=== PATIENT | male | born 1940 | race Caucasian/White ===

== ENCOUNTER → 2017-02-15 | Outpatient (CLI) | payer BC ==
[~2017-02-15] MED LIST: ASPI-461 PO; CALC-416 PO; CEPH500C PO; CYM/30 PO; DXY100 PO; FLV1 PO; GABA1CAP PO; LYR/50 PO; METF-384 PO; MTH25 PO; MULT-506 PO; OMEG10007 PO; PRED10TA PO; SIMV10TA2 PO; SOLI5TAB2 PO; ULT50 PO; VALS320T2 PO
[2017-02-15 13:01] LABS: THYROID STIMULATING HORMONE 2.51 uIu/ml (0.300-4.500)
[2017-02-15 13:19] LABS: URINE PROTIEN/CREAT RATIO 0.1 (0-0.2)
[2017-02-15 15:37] LABS: ESTIMATED AVERAGE GLUCOSE 148 mg/dl; HA1C FLAG Normal (Normal)
--- NOTE | 2017-02-19 13:24 | CODING QUERY MEDICAL NECESSITY ---
CQSUPPORTING DIAGNOSIS NEEDED A supporting diagnosis is required for the test/procedure performed on this patient in order for us to be reimbursed by the patient's insurance. Please provide a supporting diagnosis for the following test/procedure listed below next to the test name along with your signature. *If there is no additional diagnosis for this patient that would support the following test/procedure please document that below next to the test/procedure. Test(s)/Procedure(s) that require a supporting diagnosis: DOS 02/15/17 VITAMIN B12 Provider Signature: Date: Thank you Yamilet Duran [employer] Once completed, please kindly fax back to [phone] For questions please call [phone]
== END | disposition home or self-care (01) ==
LOC: C.LABPBG 09:14
PROVIDERS: ATTEND Internal Medicine Geriatric Medicine
DX: E11.9 Type 2 diabetes mellitus without complications (principal); L40.50 Arthropathic psoriasis, unspecified; I10 Essential (primary) hypertension; E78.5 Hyperlipidemia, unspecified; R94.31 Abnormal electrocardiogram [ECG] [EKG]; D64.9 Anemia, unspecified

== ENCOUNTER → 2017-04-22 | Outpatient (CLI) | payer BC | END | disposition home or self-care (01) | LOC: C.LABPBG 12:30 | PROVIDERS: ATTEND Internal Medicine Geriatric Medicine | DX: I10 Essential (primary) hypertension (principal); D64.9 Anemia, unspecified; R35.0 Frequency of micturition; L40.50 Arthropathic psoriasis, unspecified; Z79.899 Other long term (current) drug therapy; Z51.81 Encounter for therapeutic drug level monitoring ==

== ENCOUNTER → 2017-05-20 | Outpatient (CLI) | payer BC ==
[~2017-05-20] MED LIST changes: -CEPH500C PO; -DXY100 PO; -GABA1CAP PO
--- NOTE | 2017-05-20 12:05 | DIAGNOSTIC IMAGING REPORT ---
RIGHT RIBS UNILATERAL MIN 2 VIEWS, CHEST 2 VIEWS ROUTINE HISTORY: 76 years Male ANEMIA,HEPATIC STEATOSIS, RIB PAIN RT SIDE, RT SIDE ABD PAIN Right COMPARISON: Chest radiograph 10/12/2016 TECHNIQUE: 5 views of the right ribs with single frontal chest radiograph FINDINGS: Chronic silhouette is again enlarged. There is atherosclerosis of the aorta. No pneumothorax. There is blunting of the right costophrenic angle suggesting trace pleural effusion. Hazy right basilar opacity suggests associated atelectasis. Left lung is clear. No overt pulmonary edema. No definite acute displaced rib fracture is identified. There is minimal cortical buckling noted involving lateral aspect of the right eighth rib. IMPRESSION: 1. Trace right pleural effusion with right basilar atelectasis. 2. No acute displaced rib fracture is identified. There is a probable subtle acute nondisplaced fracture of the lateral right eighth rib. Correlate with point tenderness. The above report was generated using voice recognition software. It may contain grammatical, syntax or spelling errors. Electronically signed by: Paul Bonilla M.D. 05/20/2017 12:04 PM Dictated Date/Time: 05/20/2017 11:58 AM
[2017-05-20 13:28] LABS: BASO % 0.2 %; BASO ABS # 0.02 K/uL (0-0.2); COMPLETE YES; EOS % 1.8 %; HEMATOCRIT 39.1 % (42-52); IG% 0.4 %; LYMPH % 13.6 %; LYMPH ABS # 1.31 K/uL (1.2-3.4); MEAN CELL VOLUME 88.9 fL (80-100); MEAN CORPUSCULAR HEMOGLOBIN 28.6 pg (25-34); MEAN CORPUSCULAR HGB CONC 32.2 g/dl (32-36); MEAN PLATELET VOLUME 11.1 fL (7.4-10.4); MONO % 10.8 %; NEUT % 73.2 %; PLATELET COUNT 262 K/uL (130-400); WHITE BLOOD COUNT 9.63 K/uL (4.8-10.8)
[2017-05-20 13:47] LABS: ALT/SGPT 26 U/L (12-78); BLOOD UREA NITROGEN 15 mg/dl (7-18); BUN/CREATININE RATIO 19.2 (10-20); CALCIUM 9.8 mg/dl (8.5-10.1); CARBON DIOXIDE 33 mmol/L (21-32); CHLORIDE 101 mmol/L (98-107); CREATININE 0.77 mg/dl (0.60-1.40); GLUCOSE 97 mg/dl (70-99); POTASSIUM 3.8 mmol/L (3.5-5.1); SODIUM 138 mmol/L (136-145)
[2017-05-20 13:50] LABS: ALKALINE PHOSPHATASE 83 U/L (45-117); AST/SGOT 20 U/L (15-37)
== END | disposition home or self-care (01) ==
LOC: C.LABBC 10:09
PROVIDERS: ATTEND Internal Medicine Geriatric Medicine
DX: D64.9 Anemia, unspecified (principal); K76.0 Fatty (change of) liver, not elsewhere classified; R07.81 Pleurodynia; R10.9 Unspecified abdominal pain

== ENCOUNTER → 2017-05-24 | Outpatient (CLI) | payer BC ==
--- NOTE | 2017-05-24 12:09 | DIAGNOSTIC IMAGING REPORT ---
LEFT FOOT MIN 3 VIEWS ROUTINE HISTORY: 76 years-old Male acute left foot pain with concern for osteomyelitis. Pain is most pronounced in the second and third toes. COMPARISON: None available TECHNIQUE: 3 views of the left foot FINDINGS: There is an acute to subacute appearing nondisplaced fracture involving the proximal metaphyseal portion of the fifth proximal phalanx. The bones are moderately demineralized. Advanced mid foot and moderate hindfoot degenerative changes are present. There is bony fusion of the first MTP joint with moderate diffuse interphalangeal degenerative changes noted. Lucent changes with cortical indistinctness/irregularity seen involving the fifth metatarsal head, notably on the oblique projection with plantar forefoot soft tissue swelling noted. There is prominent spurring about the calcaneus with large degree of soft tissue swelling within the region of the distal Achilles tendon. There is no opaque foreign body. IMPRESSION: 1. Lucent changes with cortical irregularity noted involving the medial aspect of the fifth metatarsal head with associated soft tissue swelling. This may reflect developing osteomyelitis within the appropriate clinical setting. 2. Acute to subacute nondisplaced fracture involves the fifth proximal phalanx. 3. Bony fusion of the first MTP joint. The above report was generated using voice recognition software. It may contain grammatical, syntax or spelling errors. Electronically signed by: Paul Bonilla M.D. 05/24/2017 12:08 PM Dictated Date/Time: 05/24/2017 12:05 PM
== END | disposition home or self-care (01) ==
LOC: C.RAD 10:33
PROVIDERS: ATTEND Emergency Medicine
DX: E11.621 Type 2 diabetes mellitus with foot ulcer (principal); L97.509 Non-pressure chronic ulcer of other part of unspecified foot with unspecified severity; S92.515A Nondisplaced fracture of proximal phalanx of left lesser toe(s), initial encounter for closed fracture; X58.XXXA Exposure to other specified factors, initial encounter; Z98.1 Arthrodesis status

== ENCOUNTER → 2017-05-24 | Outpatient (CLI) | payer BC ==
--- NOTE | 2017-05-24 10:13 | DIAGNOSTIC IMAGING REPORT ---
ABDOMEN LIMITED (US) HISTORY: 76 years-old Male D64.9 RmbzipW87.0 Hepatic twtfougigP27.9 Right sided abdominal pain COMPARISON: Ultrasound of the abdomen 11/02/2013. TECHNIQUE: Multiple real-time sonographic images of the abdominal right upper quadrant were obtained assessing grayscale appearance and color flow FINDINGS: The imaged pancreas is unremarkable without pancreatic ductal dilatation. The distal body and tail are obscured by bowel gas. There is diffusely increased echogenicity with poor through transmission of the liver consistent with fatty infiltration. No focal hepatic masses are seen. Common bile duct is normal, 0.3 cm. Liver measures up to 17.3 cm. Mild layering gallbladder sludge and cholelithiasis noted without gallbladder wall thickening or pericholecystic fluid. No reported right upper quadrant abdominal tenderness. Imaged right kidney is within normal limits without hydronephrosis. IMPRESSION: 1. Cholelithiasis and gallbladder sludge without sonographic evidence of acute cholecystitis. 2. Fatty infiltration of the liver. 3. No biliary ductal dilatation. The above report was generated using voice recognition software. It may contain grammatical, syntax or spelling errors. Electronically signed by: Paul Bonilla M.D. 05/24/2017 10:11 AM Dictated Date/Time: 05/24/2017 10:09 AM
== END | disposition home or self-care (01) ==
LOC: C.ULTRBC 09:11
PROVIDERS: ATTEND Internal Medicine Geriatric Medicine
DX: K80.20 Calculus of gallbladder without cholecystitis without obstruction (principal); D64.9 Anemia, unspecified; K76.0 Fatty (change of) liver, not elsewhere classified; R07.81 Pleurodynia

== ENCOUNTER → 2017-06-03 | Outpatient (CLI) | payer BC ==
--- NOTE | 2017-06-15 06:13 | CODING QUERY MEDICAL NECESSITY ---
CQSUPPORTING DIAGNOSIS NEEDED A supporting diagnosis is required for the test/procedure performed on this patient in order for us to be reimbursed by the patient's insurance. Please provide a supporting diagnosis for the following test/procedure listed below next to the test name along with your signature. *If there is no additional diagnosis for this patient that would support the following test/procedure please document that below next to the test/procedure. Test(s)/Procedure(s) that require a supporting diagnosis: DULCE 06/03/17 BONE MINERAL DENSITY STUDY Provider Signature: Date: Thank you Yamilet Duran [employer] Once completed, please kindly fax back to [phone] For questions please call [phone]
== END | disposition home or self-care (01) ==
LOC: C.MAMM 12:06
PROVIDERS: ATTEND Internal Medicine Geriatric Medicine
DX: S22.39XA Fracture of one rib, unspecified side, initial encounter for closed fracture (principal); X58.XXXA Exposure to other specified factors, initial encounter

== ENCOUNTER → 2017-06-04 | Outpatient (CLI) | payer BC ==
[~2017-06-04] MED LIST changes: +SINCALIDE INJ 2 MCG in SODIUM CHLORIDE 0.9% 100ML 100 ML IV ONE
--- NOTE | 2017-06-04 12:30 | DIAGNOSTIC IMAGING REPORT ---
NUCLEAR HEPATOBILIARY SCAN WITH EJECTION FRACTION IMAGING CLINICAL HISTORY: Right upper quadrant abdominal pain. COMPARISON STUDY: Abdominal ultrasound dated 05/24/2017. TECHNIQUE: Dynamic images of the liver and anterior abdomen were obtained every 5 minutes for a total of 60 minutes following the IV administration of 5.44mCi of technetium 99m Choletec. 2 mcg of sincalide was then injected with additional images acquired every 5 minutes for 45 minutes to calculate the gallbladder ejection fraction. FINDINGS: The hepatobiliary scan shows prompt and homogeneous hepatic uptake. There is visualized activity within the intra and extrahepatic biliary tree at 10 minutes, and within the gallbladder at 20 minutes. There is normal biliary to bowel transit, with small bowel visualized by 25 minutes. On the sincalide imaging, the gallbladder ejection fraction was measured at 15%. IMPRESSION: 1. There is no scintigraphic evidence of acute cholecystitis. 2. The gallbladder ejection fraction is diminished measuring 15%. This suggests gallbladder dysfunction. Electronically signed by: Vitaly Roman M.D. 06/04/2017 12:29 PM Dictated Date/Time: 06/04/2017 12:27 PM
== END | disposition home or self-care (01) ==
LOC: C.NUCL 10:11
PROVIDERS: ATTEND Internal Medicine Geriatric Medicine
DX: K80.20 Calculus of gallbladder without cholecystitis without obstruction (principal); R10.9 Unspecified abdominal pain

== ENCOUNTER → 2017-06-07 | Outpatient (CLI) | payer BC ==
[~2017-06-07] MED LIST changes: +GADAVIST IV PRN; -SINCALIDE INJ 2 MCG in SODIUM CHLORIDE 0.9% 100ML 100 ML IV ONE
--- NOTE | 2017-06-07 09:57 | DIAGNOSTIC IMAGING REPORT ---
MRI THE LEFT FOREFOOT WITHOUT AND WITH GADOLINIUM CLINICAL HISTORY: Nonhealing wound, left second toe. Diabetic. Possible osteomyelitis. COMPARISON STUDY: Conventional radiographic study dated 05/24/2017 FINDINGS: Imaging was performed in the axial sagittal and coronal planes. Imaging before and after the administration of 9.9 cc of intravenous Gadavist was performed There is mild dorsal soft tissue edema. There are no fluid collections to indicate an abscess. There are no areas of marrow edema to indicate acute osteomyelitis. There are postsurgical changes of an arthrodesis at the level of the first metatarsal phalangeal joint. There is a chronic dorsal subluxation at the level of the proximal interphalangeal joint of the second toe. There is a fracture through the proximal one third of the proximal phalanx of the fifth toe IMPRESSION: 1. No evidence of acute osteomyelitis 2. Dorsal soft tissue edema. No evidence of abscess 3. Chronic dorsal subluxation at the level the proximal interphalangeal joint of the second toe 4. Postsurgical changes involving the first metatarsal phalangeal joint 5. Healing fracture involving the proximal phalanx of the fifth toe Electronically signed by: Luis Alfredo Dsouza M.D. 06/07/2017 9:56 AM Dictated Date/Time: 06/07/2017 9:48 AM
== END | disposition home or self-care (01) ==
LOC: C.MRI 07:47
PROVIDERS: ATTEND Emergency Medicine
DX: E11.628 Type 2 diabetes mellitus with other skin complications (principal); S91.105D Unspecified open wound of left lesser toe(s) without damage to nail, subsequent encounter; S93.13 Subluxation of interphalangeal joint; S92.512D Displaced fracture of proximal phalanx of left lesser toe(s), subsequent encounter for fracture with routine healing; X58.XXXD Exposure to other specified factors, subsequent encounter

== ENCOUNTER → 2017-09-22 | Outpatient (CLI) | payer BC ==
[~2017-09-22] MED LIST changes: +GABA1CAP PO; -GADAVIST IV PRN; -OMEG10007 PO
[2017-09-22 12:28] LABS: ESTIMATED AVERAGE GLUCOSE 128 mg/dl; HA1C FLAG Normal (Normal)
[2017-09-22 13:51] LABS: CHOLESTEROL/HDL RATIO 2.5; PROSTATE SPECIFIC ANTIGEN 4.36 ng/ml (0.000-4.000)
== END | disposition home or self-care (01) ==
LOC: C.LABPBG 10:14
PROVIDERS: ATTEND Internal Medicine Geriatric Medicine
DX: I10 Essential (primary) hypertension (principal); E11.9 Type 2 diabetes mellitus without complications; E78.5 Hyperlipidemia, unspecified; D64.9 Anemia, unspecified; R97.20 Elevated prostate specific antigen [PSA]

== ENCOUNTER → 2017-09-28 | Outpatient (CLI) | payer BC ==
--- NOTE | 2017-09-28 13:35 | DIAGNOSTIC IMAGING REPORT ---
RIGHT SECOND TOE 3 VIEWS CLINICAL HISTORY: NON-HEALING DIABETIC Wound, r/o OSTEO COMPARISON STUDY: None. FINDINGS: Soft tissue swelling within the second toe. There appears be a tiny focal erosion at the cortex of the distal tuft of the second toe. This is suspicious for a site of osteomyelitis. Small metallic screws transfixing an old, healed first toe fracture. IMPRESSION: Soft tissue swelling within the distal second toe. There is a tiny cortical erosion at the distal tuft of the second toe. This likely represents a site of osteomyelitis. Electronically signed by: Mitchell Hargrove M.D. 09/28/2017 1:33 PM Dictated Date/Time: 09/28/2017 1:31 PM
== END | disposition home or self-care (01) ==
LOC: C.RAD 12:31
PROVIDERS: ATTEND Physician Assistant
DX: S91.104D Unspecified open wound of right lesser toe(s) without damage to nail, subsequent encounter (principal); X58.XXXD Exposure to other specified factors, subsequent encounter

== ENCOUNTER → 2017-10-18 | Outpatient (CLI) | payer BC ==
[~2017-10-18] MED LIST changes: +DXY100 PO
== END | disposition home or self-care (01) ==
LOC: C.RDSM 11:21
PROVIDERS: ATTEND Physical Medicine & Rehabilitation Sports Medicine
DX: E11.621 Type 2 diabetes mellitus with foot ulcer (principal)

== ENCOUNTER → 2017-11-08 | Outpatient (CLI) | payer BC | END | disposition home or self-care (01) | LOC: C.RDSM 13:28 | PROVIDERS: ATTEND Physical Medicine & Rehabilitation Sports Medicine | DX: E11.621 Type 2 diabetes mellitus with foot ulcer (principal) ==

== ENCOUNTER → 2017-12-03 | Outpatient (CLI) | payer BC ==
[2017-12-03 09:32] LABS: BASO % 0.2 %; BASO ABS # 0.02 K/uL (0-0.2); EOS % 3.7 %; HEMATOCRIT 39.8 % (42-52); HEMOGLOBIN 12.8 g/dL (14.0-18.0); IG# 0.03 K/uL (0.00-0.02); LYMPH ABS # 2.05 K/uL (1.2-3.4); MEAN CELL VOLUME 89.4 fL (80-100); MEAN CORPUSCULAR HEMOGLOBIN 28.8 pg (25-34); MEAN CORPUSCULAR HGB CONC 32.2 g/dl (32-36); MEAN PLATELET VOLUME 10.2 fL (7.4-10.4); MONO % 12.3 %; MONO ABS # 1.01 K/uL (0.11-0.59); NEUT % 58.4 %; NEUT ABS # 4.79 K/uL (1.4-6.5); PLATELET COUNT 227 K/uL (130-400); RED CELL DISTRIBUTION WIDTH CV 16.4 % (11.5-14.5); RED CELL DISTRIBUTION WIDTH SD 52.7 fL (36.4-46.3)
[2017-12-03 10:03] LABS: ALBUMIN 3.5 gm/dl (3.4-5.0); ALT/SGPT 27 U/L (12-78); AST/SGOT 25 U/L (15-37); CREATININE 0.77 mg/dl (0.60-1.40)
[2017-12-03 10:05] LABS: ALKALINE PHOSPHATASE 80 U/L (45-117); TOTAL PROTEIN 7.5 gm/dl (6.4-8.2)
== END | disposition home or self-care (01) ==
LOC: C.LAB1850 08:50
PROVIDERS: ATTEND Internal Medicine Rheumatology
DX: L40.50 Arthropathic psoriasis, unspecified (principal)

== ENCOUNTER → 2017-12-10 | Outpatient (CLI) | payer BC ==
[~2017-12-10] MED LIST changes: +GABA100C13 PO; -GABA1CAP PO
== END | disposition home or self-care (01) ==
LOC: C.RDSM 12-09 08:00
PROVIDERS: ATTEND Physical Medicine & Rehabilitation Sports Medicine
DX: E11.621 Type 2 diabetes mellitus with foot ulcer (principal)

== ENCOUNTER → 2018-03-21 | Outpatient (CLI) | payer BC ==
[~2018-03-21] MED LIST changes: +PRED-301 PO
[2018-03-21 13:03] LABS: BASO % 0.4 %; BASO ABS # 0.03 K/uL (0-0.2); EOS % 2.8 %; EOS ABS # 0.19 K/uL (0-0.5); HEMATOCRIT 36.9 % (42-52); HEMOGLOBIN 11.9 g/dL (14.0-18.0); IG# 0.02 K/uL (0.00-0.02); LYMPH % 25.3 %; LYMPH ABS # 1.73 K/uL (1.2-3.4); MEAN CELL VOLUME 89.6 fL (80-100); MEAN CORPUSCULAR HEMOGLOBIN 28.9 pg (25-34); MEAN CORPUSCULAR HGB CONC 32.2 g/dl (32-36); MEAN PLATELET VOLUME 10.6 fL (7.4-10.4); MONO % 8.8 %; NEUT % 62.4 %; NEUT ABS # 4.28 K/uL (1.4-6.5); PLATELET COUNT 223 K/uL (130-400); RED CELL DISTRIBUTION WIDTH CV 16.6 % (11.5-14.5); RED CELL DISTRIBUTION WIDTH SD 53.7 fL (36.4-46.3); WHITE BLOOD COUNT 6.85 K/uL (4.8-10.8)
[2018-03-21 13:35] LABS: HEMOGLOBIN A1C 6.2 % (4.5-5.6)
[2018-03-21 13:46] LABS: ALBUMIN 3.3 gm/dl (3.4-5.0); ALKALINE PHOSPHATASE 75 U/L (45-117); ALT/SGPT 31 U/L (12-78); AST/SGOT 31 U/L (15-37); BLOOD UREA NITROGEN 20 mg/dl (7-18); CALCIUM 9.1 mg/dl (8.5-10.1); CARBON DIOXIDE 30 mmol/L (21-32); CREATININE 0.86 mg/dl (0.60-1.40); GLUCOSE 182 mg/dl (70-99); POTASSIUM 4.1 mmol/L (3.5-5.1); SODIUM 138 mmol/L (136-145); TOTAL PROTEIN 6.9 gm/dl (6.4-8.2)
== END | disposition home or self-care (01) ==
LOC: C.LABPBG 08:25
PROVIDERS: ATTEND Internal Medicine Rheumatology
DX: I10 Essential (primary) hypertension (principal); E11.9 Type 2 diabetes mellitus without complications; D64.9 Anemia, unspecified; R97.20 Elevated prostate specific antigen [PSA]; L40.50 Arthropathic psoriasis, unspecified; Z79.899 Other long term (current) drug therapy

== ENCOUNTER → 2018-06-15 | Outpatient (CLI) | payer BC ==
[~2018-06-15] MED LIST changes: +CIPR1TAB11 PO; -DXY100 PO; +GABA-1693 PO; -GABA100C13 PO; -ULT50 PO
--- NOTE | 2018-06-15 17:14 | DIAGNOSTIC IMAGING REPORT ---
R HAND MIN 3 VIEWS ROUTINE CLINICAL HISTORY: L40.50 Psoriatic [id number] [id number] pain COMPARISON: 02/27/2016 DISCUSSION: Moderate generalized degenerative change throughout the hand and wrist. Pre-existing shortening of the distal ulna unchanged in the prior exam. No significant marginal erosions or periarticular osteopenia. IMPRESSION: Moderate generalized osteoarthritic change. No change from the prior exam. The above report was generated using voice recognition software. It may contain grammatical, syntax or spelling errors. Electronically signed by: Chandan Power M.D. 06/15/2018 5:12 PM Dictated Date/Time: 06/15/2018 5:11 PM
--- NOTE | 2018-06-15 17:16 | DIAGNOSTIC IMAGING REPORT ---
R WRIST MIN 3 VIEWS ROUTINE CLINICAL HISTORY: Psoriatic arthropathy. Anemia. COMPARISON: Right hand radiographs February 19, 2016 and MRI of the right wrist April 08, 2016. FINDINGS: Resorption of the distal ulna is unchanged as well as resorption of the adjacent radius at the level of the distal radioulnar joint. No acute fracture is present. There is no suspicious osseous lesion. Mild osteoarthritis of the right first carpometacarpal joint and triscaphe joint are noted. IMPRESSION: 1. No significant change in resorption of the distal ulna and a small portion of the adjacent distal radius since exam of February 27, 2016. This may be related to remote trauma or an inflammatory arthropathy. 2. No acute fracture or dislocation within the right wrist. Electronically signed by: Pedro Pablo Bonds M.D. 06/15/2018 5:14 PM Dictated Date/Time: 06/15/2018 5:12 PM
--- NOTE | 2018-06-15 17:18 | DIAGNOSTIC IMAGING REPORT ---
L WRIST MIN 3 VIEWS ROUTINE CLINICAL HISTORY: L40.50 Psoriatic [id number] [id number] COMPARISON: None. DISCUSSION: Mild degenerative changes throughout. Somewhat foreshortened distal ulna. Degenerative change radiocarpal pleural articulations. Mild soft tissue edema. There is no evidence for soft tissue swelling. IMPRESSION: Moderate osteoarthritic change. No acute process. The above report was generated using voice recognition software. It may contain grammatical, syntax or spelling errors. Electronically signed by: Chandan Power M.D. 06/15/2018 5:17 PM Dictated Date/Time: 06/15/2018 5:16 PM
--- NOTE | 2018-06-15 17:19 | DIAGNOSTIC IMAGING REPORT ---
L HAND MIN 3 VIEWS ROUTINE CLINICAL HISTORY: L40.50 Psoriatic egbzwfvloipP97.9 [id number] pain COMPARISON: None. DISCUSSION: Moderate generalized degenerative change of the interphalangeal joints throughout. Moderate degenerative change of the intercarpal as well as carpal metacarpal joints. No significant periarticular osteopenia. There is no evidence for soft tissue swelling. IMPRESSION: Moderate generalized degenerative change throughout all major osseous structures of the hand and wrist. The above report was generated using voice recognition software. It may contain grammatical, syntax or spelling errors. Electronically signed by: Chandan Power M.D. 06/15/2018 5:18 PM Dictated Date/Time: 06/15/2018 5:17 PM
[2018-06-15 17:46] LABS: BASO % 0.5 %; BASO ABS # 0.04 K/uL (0-0.2); EOS % 2.2 %; EOS ABS # 0.16 K/uL (0-0.5); HEMATOCRIT 38.6 % (42-52); HEMOGLOBIN 12.4 g/dL (14.0-18.0); IG# 0.04 K/uL (0.00-0.02); LYMPH % 19.9 %; LYMPH ABS # 1.47 K/uL (1.2-3.4); MEAN CELL VOLUME 88.5 fL (80-100); MEAN CORPUSCULAR HEMOGLOBIN 28.4 pg (25-34); MEAN CORPUSCULAR HGB CONC 32.1 g/dl (32-36); MEAN PLATELET VOLUME 10.7 fL (7.4-10.4); MONO % 9.5 %; NEUT % 67.4 %; NEUT ABS # 4.96 K/uL (1.4-6.5); PLATELET COUNT 285 K/uL (130-400); RED CELL DISTRIBUTION WIDTH CV 16.5 % (11.5-14.5); RED CELL DISTRIBUTION WIDTH SD 52.2 fL (36.4-46.3); WHITE BLOOD COUNT 7.37 K/uL (4.8-10.8)
[2018-06-15 18:11] LABS: ALBUMIN 3.5 gm/dl (3.4-5.0); ALKALINE PHOSPHATASE 221 U/L (45-117); ALT/SGPT 298 U/L (12-78); AST/SGOT 236 U/L (15-37); CREATININE 0.95 mg/dl (0.60-1.40); TOTAL PROTEIN 7.5 gm/dl (6.4-8.2)
== END | disposition home or self-care (01) ==
LOC: C.RAD1850 16:34
PROVIDERS: ATTEND Internal Medicine Rheumatology
DX: D64.9 Anemia, unspecified (principal); E11.42 Type 2 diabetes mellitus with diabetic polyneuropathy; Z79.899 Other long term (current) drug therapy; K21.9 Gastro-esophageal reflux disease without esophagitis; L40.50 Arthropathic psoriasis, unspecified

== ENCOUNTER → 2018-06-22 | Outpatient (CLI) | payer BC ==
[2018-06-22 10:10] LABS: ALBUMIN 3.5 gm/dl (3.4-5.0); TOTAL PROTEIN 7.2 gm/dl (6.4-8.2)
[2018-06-22 10:39] LABS: HEP C IGG 13 YRS+OLDER_RFLX NEG (NEG)
== END | disposition home or self-care (01) ==
LOC: C.LAB1850 07:59
PROVIDERS: ATTEND Internal Medicine Rheumatology
DX: L40.50 Arthropathic psoriasis, unspecified (principal); R94.5 Abnormal results of liver function studies; Z79.899 Other long term (current) drug therapy; M25.549 Pain in joints of unspecified hand

== ENCOUNTER 2020-09-05 10:29 | Inpatient (IN) ==
--- NOTE | 2020-09-05 11:45 | Emergency Department Note ---
History of Present Illness General Chief complaint: Infection Stated complaint: INECTION IN NECK Time Seen by Provider: 09/05/20 10:41 Source: patient Mode of arrival: ambulatory Limitations: no limitations History of Present Illness Provider complaint: "I have a neck infection" Onset (ago): day(s) 4 Maximum Pain Intensity: 3 This 80-year-old male patient presents to the emergency department today for evaluation of "I had a bone infection in my neck". The patient states he had osteomyelitis with epidural abscess in April/May of this year. He had an outpatient MRI completed, then was taken to surgery, admitted to [facility] for several days, then discharged to rehab for 6 weeks. He was then following up as an outpatient with infectious disease as well as investigative research specialist here locally. He is not currently on any antibiotics. He states he was doing well until 3 to 4 days ago when he developed some pain in the posterior right side of his neck. He was seen by his PCP, and had an outpatient CT scan as well as MRI completed. The MRI completed last night was concerning for osteomyelitis/discitis at C4-C5 as well as mild edema and soft tissue enhancement posterior to the C3-C6 pedicle screws, could represent a mild cellulitis or postoperative changes. The patient was referred here to the emergency department by his PCP for IV antibiotics and admission. The patient does not recall that the surgeon has been contacted regarding the findings. Patient rates his current pain 3/10. He has taken no medications for his symptoms. He denies any numbness, tingling, weakness, recent injury or fall, fever, body aches, or other concerning symptoms. Home Medications Home Medications Medication Instructions Recorded Confirmed Type aspirin 81 mg tablet,delayed 81 mg PO QPM 06/29/18 09/05/20 History release docusate sodium [Stool Softener] 100 mg PO DAILY PRN 09/13/19 09/05/20 History etanercept [Enbrel SureClick] 50 mg SUBCUT WK 09/13/19 09/05/20 History simvastatin 20 mg tablet 20 mg PO QPM #90 tab 04/10/20 09/05/20 Rx hydrocodone 5 mg-acetaminophen 325 1 tab PO Q6 PRN #30 tab 04/23/20 09/05/20 Rx mg tablet potassium chloride 20 mEq 20 meq PO BID #60 tab 06/21/20 09/05/20 Rx tablet,extended release hydrocodone-acetaminophen [Tyler] 1 - 2 tab PO Q6H PRN #24 tab 07/07/20 09/05/20 Rx alfuzosin 10 mg tablet,extended 10 mg PO DAILY #90 tab 07/18/20 09/05/20 Rx release 24 hr oxybutynin chloride 10 mg 10 mg PO QPM #90 tab 08/08/20 09/05/20 Rx tablet,extended release 24 hr metformin 1,000 mg tablet 1,000 mg PO BID #180 tab 08/27/20 09/05/20 Rx acetaminophen [Tylenol] 650 mg PO Q4H PRN 09/05/20 09/05/20 History amlodipine 10 mg PO QAM 09/05/20 09/05/20 History duloxetine 60 mg PO QAM 09/05/20 09/05/20 History finasteride [Proscar] 5 mg PO QAM 09/05/20 09/05/20 History hydrochlorothiazide 0 mg PO DAILY 09/05/20 09/05/20 History losartan 100 mg PO QPM 09/05/20 09/05/20 History yecoeyqphzyw-xtlnbduw-xrvcuf 1 tab PO QAM 09/05/20 09/05/20 History [Centrum Silver] prednisone 5 mg PO QAM 09/05/20 09/05/20 History Allergies Allergy/AdvReac Type Severity Reaction Status Date / Time amoxicillin Allergy Mild lip Verified 09/05/20 12:49 swelling clavulanic acid Allergy Mild lip Verified 09/05/20 12:49 swelling VINCE Inhibitors Allergy Unknown UNKNOWN-PT Verified 09/05/20 12:49 NOT AWARE clarithromycin Allergy Unknown UNKNOWN-PT Verified 09/05/20 12:49 NOT AWARE Sulfa (Sulfonamide Allergy Unknown LIP Verified 09/05/20 12:49 Antibiotics) SWELLING WITH SULFA DRUGS Past Med/Surg History Medical History Chronic back pain Chronic steroid use RA Depression Diabetes mellitus, type 2 NIDDM - controlled 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 Per record review they were unable to intubate on 3 attempts. Fast track LMA were unsuccessful. Were able to mask vent with 2 people. Intubated with nasal fiberoptic. 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) S/P arthroscopy of shoulder (01/2016) Left S/P hammer toe correction (11/2013) arthrodesis R toe S/P laminectomy (04/25/20) S/P laparoscopic cholecystectomy (07/2018) S/P left knee arthroscopy (10/2015) Status post carpal tunnel release of both wrists Family History Mother Cardiac disorder Myocardial infarction Other No family history of adverse response to anesthesia Denies family history of Ovarian cancer Prostate cancer Breast cancer Colorectal cancer Social History Smoking Status: Former smoker Tobacco Type: Cigarettes Second Hand Exposure: No; Hx Alcohol Use: No Hx Substance Use: No Preferred Language: Yakut Communication Ability: Effective Visual Impairment: No Limitations Hearing Ability: Normal 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: No Beliefs That Will Affect Care: None marital status: Current Living Situation: Spouse current occupational status: retired Feels Safe at Home: Yes Dental Care, Regularly: Yes Physical Activity Frequency: Does not Exercise Seatbelt Use: always Sunscreen Use: Yes Assistive Devices: Denture - Upper, Denture - Lower and Glasses Review of Systems A total of 10 systems reviewed and were otherwise negative Physical Exam Vital Signs Vital Signs - 24 hr 09/05/20 10:32 09/05/20 11:29 09/05/20 13:22 Temperature 37.0 C Temperature Source Oral Pulse Rate 78 72 Pulse Rate [Finger] 73 Pulse Rate from SpO2 Sensor 71 Respiratory Rate 16 16 15 Respiratory Effort / Characteristics Non-Labored Spontaneous Non-Labored Respiratory Depth Normal Normal Respiratory Pattern Regular Blood Pressure 143/70 H 141/76 H Blood Pressure [Right Arm] 120/72 Blood Pressure Mean 94 97 Blood Pressure Mean [Right Arm] 88 Blood Pressure Position Sitting Blood Pressure Position [Right Arm] Sitting Pulse Oximetry 97 99 96 Oxygen Delivery Method Room Air Room Air Sepsis Recent Fever Within 48 Hours No Sepsis New/Unexplained Change in Mental Status No Sepsis Action Taken by Nursing No Action Required VITALS: Vitals are noted on the nurse's note and reviewed by myself. Vital signs stable. GENERAL: This is an 80 yo male, in no acute distress, nondiaphoretic, well- developed well-nourished. SKIN: Surgical incision scar noted on the posterior neck with no surrounding erythema, edema, ecchymosis, or evidence of abscess or infection. The skin was without rashes, erythema, edema, or bruising. There is no tenting of the skin. Capillary refill less than 2 seconds. HEAD: Normocephalic atraumatic. EARS: External auditory canals clear, tympanic membranes pearly jj without erythema or effusion bilaterally. EYES: Conjunctivae without injection, sclerae without icterus. NECK: Supple without nuchal rigidity. No lymphadenopathy. No thyromegaly. Cervical spine is nontender. No JVD. HEART: Regular rate and rhythm without murmurs gallops or rubs. LUNGS: Clear to auscultation bilaterally without wheezes, rales or rhonchi. No retractions or accessory muscle use. ABDOMEN: Positive bowel sounds x 4. Normal tympanic percussion. Soft, nontender, without masses or organomegaly. Foote sign negative. No guarding or rebound tenderness. MUSCULOSKELETAL: No muscle atrophy, erythema, or edema noted. Full range of motion without joint tenderness in all extremities. No tenderness to palpation. Normal gait. Strength 5/5 throughout. NEURO: Patient was alert and oriented to person place and time. Normal sensation to light and sharp touch. Deep tendon reflexes 2+ throughout. No focal neurological deficits. Course Course The patient was seen and evaluated as above. An order was placed for continuous cardiac monitoring. The monitor shows a normal sinus rhythm at a rate of 82 bpm. Outpatient MRI reviewed. I did review [facility] records with the assistance of case management. I discussed the case with Dr. Patten, orthopedic investigative research specialist on-call here locally. He recommended I speak with the patient's neurosurgeon from [facility] who had previously been managing his symptoms. I discussed the case with Dr. Trivedi, neurosurgeon at [facility] in [place]. He was familiar with the patient in the case. He did review the MRI which was pushed through to [facility] by our radiology service. He advises that there is no evidence of abscess at this time and no surgical intervention necessary. He recommends medical management. IV access obtained, labs drawn. I discussed the case with Dr. Levy, [facility] hospitalist. He did agree to see and evaluate the patient for possible admission. Please see Dr. Levy's dictation regarding ongoing management care of this patient. Administered Medications Discontinued Medications Vancomycin HCl 2,250 mg/ (Sodium Chloride) 545 mls @ 200 mls/hr IV NOW ONE Stop: 09/05/20 15:23 Last Admin: 09/05/20 13:14 Dose: Not Given [place]ed by: [id number] Ceftriaxone Sodium (Rocephin) 1,000 mg in 50 mls @ 100 mls/hr IV NOW STA Stop: 09/05/20 13:09 Last Admin: 09/05/20 13:14 Dose: Not Given Documented by: [id number] Medical Decision Making Differential Diagnosis Cervical strain, fracture, cervical disc disease, lymphadenitis, meningitis, tumor, arterial dissection, thyroiditis, parotitis, mastoiditis, neurologic, cardiovascular, as well as other pathologies. Medical Records Attestation: I reviewed the patient's medical records. Home Medications Current Medication List: was personally reviewed by me Laboratory Data Attestation: I reviewed the patient's lab results. No leukocytosis, anemia, thrombocytopenia. Renal, hepatic function, and electrolytes without significant abnormality. Inflammatory markers elevated. Result diagrams: 09/05/20 11:40 09/05/20 11:40 Lab Results 09/05/20 09/05/20 09/05/20 Range/Units 11:40 11:40 11:40 WBC 7.51 (4.8-10.8) K/uL RBC 3.72 L (4.7-6.1) M/uL Hgb 9.9 L (14.0-18.0) g/dL Hct 31.9 L (42-52) % MCV 85.8 (80-100) fL MCH 26.6 (25-34) pg MCHC 31.0 L (32-36) g/dL RDW Std Deviation 51.9 H (36.4-46.3) fL RDW Coeff of Caren 16.6 H (11.5-14.5) % Plt Count 263 (130-400) K/uL MPV 10.3 (7.4-10.4) fL Immature Gran % (Auto) 0.4 % Neut % (Auto) 62.6 % Lymph % (Auto) 22.8 % Williams % (Auto) 11.2 % Eos % (Auto) 2.7 % Baso % (Auto) 0.3 % Neut # (Auto) 4.71 (1.4-6.5) K/uL Lymph # (Auto) 1.71 (1.2-3.4) K/uL Williams # (Auto) 0.84 H (0.11-0.59) K/uL Eos # (Auto) 0.20 (0-0.5) K/uL Baso # (Auto) 0.02 (0-0.2) K/uL Immature Gran # (Auto) 0.03 H (0.00-0.02) K/uL ESR 15 H (0-14) mm/hr Sodium 139 (136-145) mmol/L Potassium 4.4 (3.5-5.1) mmol/L Chloride 107 (98-107) mmol/L Carbon Dioxide 27 (21-32) mmol/L Anion Gap 5.0 (3-11) BUN 24 H (7-18) mg/dl Creatinine 0.98 (0.6-1.4) mg/dl Est Cr Clr Drug Dosing 62.3 ml/min Est GFR ( Amer) 82.9 Est GFR (Non-Af Amer) 71.5 BUN/Creatinine Ratio 24.7 H (10-20) Glucose 106 H (70-99) mg/dl Calcium 9.3 (8.5-10.1) mg/dl Total Bilirubin 0.3 (0.2-1) mg/dl AST 20 (15-37) U/L ALT 26 (12-78) U/L Alkaline Phosphatase 79 (45-117) U/L C-Reactive Protein 0.40 H (0-0.29) mg/dl Total Protein 7.4 (6.4-8.2) gm/dl Albumin 3.3 L (3.4-5.0) gm/dl Globulin 4.1 H (2.5-4.0) gm/dl Albumin/Globulin Ratio 0.8 L (0.9-2) Blood Pressure Blood Pressure Findings: Elevated blood pressure Blood Pressure Disposition: elevated BP felt to be situational MDM Narrative This 80-year-old male patient presents to the emergency department today for evaluation of osteomyelitis in his neck. The patient has previously followed with [facility] infectious disease as well as neurosurgery due to an epidural abscess over the summer. I did speak with the patient's surgeon, Dr. Trivedi who did review the MRI images and recommends medical management at this time. The patient will be admitted to the [facility] hospitalist service. Please see hospitalist dictation regarding ongoing management and care of this patient. The chart was completed utilizing [employer] voice recognition software. Grammatical errors, random word insertions, pronoun errors, and incomplete sentences are an occasional consequence of this system due to software limitations, ambient noise, and hardware issues. Any formal questions or concerns about the content, text, or information contained within the body of this dictation should be directly addressed to the provider for clarification. Impression & Plan Osteomyelitis Discharge Plan Visit Data Chief Complaint: Infection Stated Complaint: INECTION IN NECK ED Provider: Camryn Malik ED Midlevel Provider: Racheal Torres Discharge Problem: Osteomyelitis Patient Disposition: Admitted As Inpatient Forms Stand Alone Forms: [facility] [employer]wl Prescriptions Prescriptions: No Action aspirin [Adult Low Dose Aspirin] 81 mg tablet,delayed release (DR/EC) 81 mg PO QPM RF: 0 simvastatin 20 mg tablet 20 mg PO QPM Qty: 90 RF: 1 potassium chloride 20 mEq tablet extended release 20 meq PO BID Qty: 60 RF: 5 oxybutynin chloride 10 mg tablet extended release 24hr 10 mg PO QPM Qty: 90 RF: 1 metformin 1,000 mg tablet 1,000 mg PO BID Qty: 180 RF: 1 hydrocodone-acetaminophen 5-325 mg tablet 1 tab PO Q6 PRN (Reason: pain) Qty: 30 RF: 0 alfuzosin [Uroxatral] 10 mg tablet extended release 24 hr 10 mg PO DAILY Qty: 90 RF: 3 acetaminophen [Tylenol] 325 mg Tablet 650 mg PO Q4H PRN (Reason: Pain) RF: 0 prednisone 5 mg tablet 5 mg PO QAM RF: 0 Centrum Silver Tablet 1 tab PO QAM RF: 0 amlodipine 10 mg tablet 10 mg PO QAM RF: 0 losartan 100 mg tablet 100 mg PO QPM RF: 0 finasteride [Proscar] 5 mg tablet 5 mg PO QAM RF: 0 duloxetine 60 mg capsule,delayed release(DR/EC) 60 mg PO QAM RF: 0 hydrochlorothiazide 25 mg tablet 0 mg PO DAILY RF: 0 Enbrel SureClick 50 mg/mL (1 mL) pen injector 50 mg SUBCUT WK RF: 0 Hold Instructions: d/t infection docusate sodium [Stool Softener] 100 mg Capsule 100 mg PO DAILY PRN (Reason: Constipation) RF: 0 hydrocodone-acetaminophen [Tyler] 5-325 mg tablet 1 - 2 tab PO Q6H PRN (Reason: pain) Qty: 24 RF: 0 Referrals Referrals: Ana Lindo DO [Primary Care Provider] -
[2020-09-05 12:23] LABS: Basophils # (auto) 0.02 K/uL (0-0.2); Basophils % (auto) 0.3 %; Eosinophils % (auto) 2.7 %; Hematocrit (blood only) 31.9 % (42-52); Hemoglobin 9.9 g/dL (14.0-18.0); Immature Granulocytes # (auto) 0.03 K/uL (0.00-0.02); Immature Granulocytes % (auto) 0.4 %; Lymphocytes # (auto) 1.71 K/uL (1.2-3.4); Lymphocytes % (auto) 22.8 %; Mean Corpuscular Hemoglobin 26.6 pg (25-34); Mean Corpuscular Volume 85.8 fL (80-100); Mean Platelet Volume 10.3 fL (7.4-10.4); Monocytes # (auto) 0.84 K/uL (0.11-0.59); Monocytes % (auto) 11.2 %; Neutrophils # (auto) 4.71 K/uL (1.4-6.5); Neutrophils % (auto) 62.6 %; Platelet Count 263 K/uL (130-400); RDW Coefficient of Variation 16.6 % (11.5-14.5); RDW Standard Deviation 51.9 fL (36.4-46.3); Red Blood Count 3.72 M/uL (4.7-6.1); White Blood Count 7.51 K/uL (4.8-10.8)
[2020-09-05 12:29] LABS: Potassium 4.4 mmol/L (3.5-5.1)
[2020-09-05 12:30] LABS: Albumin Level 3.3 gm/dl (3.4-5.0); BUN Creatinine Ratio 24.7 (10-20); C Reactive Protein 0.4 mg/dl (0-0.29); Calcium 9.3 mg/dl (8.5-10.1); Creatinine Clr Calc Pharmacy 62.3 ml/min; Est GFR (African American) 82.9; Est GFR (Non-African American) 71.5
[2020-09-05 12:32] LABS: Albumin Globulin Ratio 0.8 (0.9-2); Bilirubin,Total 0.3 mg/dl (0.2-1); Globulin 4.1 gm/dl (2.5-4.0); Total Protein 7.4 gm/dl (6.4-8.2)
[2020-09-05] MEDS ORDERED: VANCOMYCIN CONSULT ACTIVE PRN ×2 (12:40→15:46)
[2020-09-05] MEDS ORDERED: VANCOMYCIN HCL 2,250 MG in SODIUM CHLORIDE 0.9% 500 ML IV ONE ×2 (12:40→16:15)
[2020-09-05] MEDS ORDERED: cefTRIAXone SODIUM 1,000 MG/50 ML BAG IV STA (12:40)
--- NOTE | 2020-09-05 14:19 | History & Physical Report ---
Date of Service September 05, 2020 Assessment & Plan (1) Osteomyelitis: Hx of an epidural abscess requiring C3-C6 fixation in 04/2020. Finished 6 weeks of IV antibiotics approx. 6 weeks ago. Now with C4-C5 discitis/osteomyelitis on MRI from 09/04. - Discussed with [facility] ID -> This is actually NOT a new finding. It was noted on his prior MRIs at [facility]. CRP and ESR are both normal. NSGY and ID both agree that biopsy is not warranted at this time. - Blood cultures ordered - Empiric vanc/ceftriaxone x 24-48 hours; if cultures negative, can probably discontinue abx and follow up outpatient per [facility] - Defer from officially consulting [facility] at this time. They felt there was not much else for them to add at this time. (2) Diabetes mellitus, type 2: A1c was 5.9% in 06/2020. - Hold oral medications - Sliding scale insulin (3) Hypertension: BP was 120/70 in the ED. - Continue home amlodipine, HCTZ, & losartan (4) Hyperlipidemia: - Continue statin (5) Urinary symptom or sign: No LUTS today. - Continue alfuzosin, finasteride (6) Psoriatic arthropathy: No eruptions noted today. Last etanercept was on Wednesday, so likely no need in the hospital. - Hold etanercept - Continue prednisone for now given he has been on it for "years" (7) Hx of deep venous thrombosis: In 2010 per notes. - Lovenox 40 mg SQ daily History of Present Illness Primary Care Provider: Ana Lindo, 80yo M w/ hx of epidural abscess in 04/2020 s/p fixation presents with neck pain. After his infection and surgery, he was on antibiotics for weeks which finished 6 weeks ago. He restarted his etanercept about 6 weeks ago as well. He reports that he had been doing well for this entire time until about 3-4 days ago, when he had pain in his neck near the site of his prior surgery. He otherwise has been entirely healthy and has had no other symptoms including fevers, chills, sweats, shortness of breath, chest pain, or other issues. MRI of the cervical spine was done which showed C4/C5 discitis/osteomyelitis. Allergies Allergy/AdvReac Type Severity Reaction Status Date / Time amoxicillin Allergy Mild lip Verified 09/05/20 12:49 swelling clavulanic acid Allergy Mild lip Verified 09/05/20 12:49 swelling VINCE Inhibitors Allergy Unknown UNKNOWN-PT Verified 09/05/20 12:49 NOT AWARE clarithromycin Allergy Unknown UNKNOWN-PT Verified 09/05/20 12:49 NOT AWARE Sulfa (Sulfonamide Allergy Unknown LIP Verified 09/05/20 12:49 Antibiotics) SWELLING WITH SULFA DRUGS Home Medications Home Medications Medication Instructions Recorded Confirmed Type aspirin 81 mg tablet,delayed 81 mg PO QPM 06/29/18 09/05/20 History release docusate sodium [Stool Softener] 100 mg PO DAILY PRN 09/13/19 09/05/20 History etanercept [Enbrel SureClick] 50 mg SUBCUT WK 09/13/19 09/05/20 History simvastatin 20 mg tablet 20 mg PO QPM #90 tab 04/10/20 09/05/20 Rx hydrocodone 5 mg-acetaminophen 325 1 tab PO Q6 PRN #30 tab 04/23/20 09/05/20 Rx mg tablet potassium chloride 20 mEq 20 meq PO BID #60 tab 06/21/20 09/05/20 Rx tablet,extended release hydrocodone-acetaminophen [Cannon] 1 - 2 tab PO Q6H PRN #24 tab 07/07/20 09/05/20 Rx alfuzosin 10 mg tablet,extended 10 mg PO DAILY #90 tab 07/18/20 09/05/20 Rx release 24 hr oxybutynin chloride 10 mg 10 mg PO QPM #90 tab 08/08/20 09/05/20 Rx tablet,extended release 24 hr metformin 1,000 mg tablet 1,000 mg PO BID #180 tab 08/27/20 09/05/20 Rx acetaminophen [Tylenol] 650 mg PO Q4H PRN 09/05/20 09/05/20 History amlodipine 10 mg PO QAM 09/05/20 09/05/20 History duloxetine 60 mg PO QAM 09/05/20 09/05/20 History finasteride [Proscar] 5 mg PO QAM 09/05/20 09/05/20 History hydrochlorothiazide 0 mg PO DAILY 09/05/20 09/05/20 History losartan 100 mg PO QPM 09/05/20 09/05/20 History nonyjhsngudq-fhpyeeqi-hihcup 1 tab PO QAM 09/05/20 09/05/20 History [Centrum Silver] prednisone 5 mg PO QAM 09/05/20 09/05/20 History Past Med/Surg History Medical History Chronic back pain Chronic steroid use RA Depression Diabetes mellitus, type 2 NIDDM - controlled 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 Per record review they were unable to intubate on 3 attempts. Fast track LMA were unsuccessful. Were able to mask vent with 2 people. Intubated with nasal fiberoptic. 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) S/P arthroscopy of shoulder (01/2016) Left S/P hammer toe correction (11/2013) arthrodesis R toe S/P laminectomy (04/25/20) S/P laparoscopic cholecystectomy (07/2018) S/P left knee arthroscopy (10/2015) Status post carpal tunnel release of both wrists Family History Mother Cardiac disorder Myocardial infarction Other No family history of adverse response to anesthesia Denies family history of Ovarian cancer Prostate cancer Breast cancer Colorectal cancer Social History Smoking Status: Former smoker Tobacco Type: Cigarettes Second Hand Exposure: No; Hx Alcohol Use: No Hx Substance Use: No Preferred Language: Slovenian Communication Ability: Effective Visual Impairment: No Limitations Hearing Ability: Normal 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 Beliefs That Will Affect Care: None marital status: Current Living Situation: Spouse current occupational status: retired Feels Safe at Home: Yes Dental Care, Regularly: Yes Physical Activity Frequency: Does not Exercise Seatbelt Use: always Sunscreen Use: Yes Assistive Devices: Denture - Upper, Denture - Lower and Glasses Review of Systems Review of Systems: All systems reviewed & are unremarkable except as noted in HPI & below Physical Exam Constitutional: WD/WN, vitals as above Eyes: EOM intact bilaterally; no conjunctival abnormality ENMT: external ear and nose normal, oropharynx normal Neck: trachea midline, no thyromegaly normal visual inspection (Surgical scar near midline; well-healed.) and + neck tender (At site of surgery) Respiratory: normal respiratory effort, lungs clear to auscultation no respiratory distress Cardiovascular: RRR, no murmur, no edema Gastrointestinal (Abdomen): Inspection/Auscultation: abdomen normal to inspection; abdomen not distended Musculoskeletal: no cyanosis or clubbing, extremities motor strength 5/5 Skin: no rashes, warm and dry Neurologic: moves all extremities and awake Psychiatric: Orientation: alert, oriented to person and cooperative Results & Data Results & Data ([facility]) Vital Signs (Past 12 Hours) Vital Signs Temp Pulse Pulse Resp BP BP Pulse Ox 09/05/20 13:22 72 15 141/76 H 96 09/05/20 11:29 73 16 120/72 99 09/05/20 10:32 37.0 C 78 16 143/70 H 97 Code Status & VTE Plan VTE Prophylaxis Plan VTE Prophylaxis will be ordered: Yes PG Care Time/CCT Total # of Minutes Spent Total Time Spent with Patient: Total time spent is greater than 50% in co ordination of care (as documented) at patient's floor/unit and/or counseling patient: Coding Level of Care Code 86975 Initial Inpt Care Lvl 3 Diagnoses Osteomyelitis M86.9 Diabetes mellitus, type 2 E11.9 Hypertension I10 Hyperlipidemia E78.5 Urinary symptom or sign R39.9 Psoriatic arthropathy L40.50 Hx of deep venous thrombosis Z86.718
[2020-09-05] MEDS ORDERED: GLUCOSE 40% GEL 15 GM TUBE PO PRN (15:46)
[2020-09-05] MEDS ORDERED: GLUCAGON FOR INJ 1 MG VIAL SQ PRN (15:46)
[2020-09-05] MEDS ORDERED: ACETAMINOPHEN 325 MG TAB PO PRN (15:46)
[2020-09-05] MEDS ORDERED: DEXTROSE 50% 50 ML SYRINGE IV PRN (15:46)
[2020-09-05] MEDS ORDERED: CARBOHYDRATES FOR HYPOGLYCEMIA PO PRN (15:46)
[2020-09-05] MEDS ORDERED: ONDANSETRON INJ 2 MG/ML 2 ML VIAL IV PRN (15:46)
[2020-09-05] MEDS ORDERED: DOCUSATE SODIUM 100 MG CAP PO PRN (15:46)
[2020-09-05] MEDS ORDERED: GLUCOSE 10 TABS/TUBE PO PRN (15:46)
[2020-09-05] MEDS ORDERED: HYDROCODONE/ACETAMOPHEN 5/325MG TAB PO PRN (15:57)
[2020-09-05] MEDS: cefTRIAXone SODIUM 2,000 MG in DEXTROSE 5% 50 ML IV SCH (17:00)
[2020-09-05] MEDS: INSULIN ASPART 100 UNITS/ML 3 ML PEN SC SCH ×2 (17:58→22:06)
--- NOTE | 2020-09-05 18:00 | Pharmacy Report ---
Pharmacy Abx Initial Consult - Date of Service September 05, 2020 - Pharmacy Dosing Scope Date of Consult: 09/05/20 Consultation requested by: Dr. Levy Pharmacy is consulted to initiate vancomycin IV dosing therapy, order appropriate labs and adjust drug dose/frequency. - Subjective The patient is a 80 year old M admitted on 09/05/20 14:10. - Objective Height: 5 ft 6 in Weight: 91.739 kg Vital Signs (Past 12hrs): Vital Signs Temp Pulse Pulse Resp BP BP Pulse Ox 09/05/20 15:30 36.7 C 66 15 125/71 95 09/05/20 14:32 72 20 140/77 97 09/05/20 14:00 72 16 129/65 99 09/05/20 13:30 72 15 135/69 95 09/05/20 13:22 72 15 141/76 H 96 09/05/20 11:29 73 16 120/72 99 09/05/20 10:32 37.0 C 78 16 143/70 H 97 Lab Results (24hrs): Laboratory Tests (24 Hours) 09/05/20 09/05/20 09/05/20 11:40 11:40 11:40 WBC 7.51 Neut # (Auto) 4.71 ESR 15 H Creatinine 0.98 Est Cr Clr Drug Dosing 62.3 C-Reactive Protein 0.40 H Micro Results: 09/05/20 14:25 Aerobic Blood Culture - Pending Blood Anaerobic Blood Culture - Pending 09/05/20 14:23 Aerobic Blood Culture - Pending Blood Anaerobic Blood Culture - Pending - Assessment & Plan Assessment 80 year old M presented to ED upon referral from PCP following outpatient MRI revealing concern for osteomyelitis/discitis at C4-C5. Patient with history of epidural abscess in April of 2020 - treated with 6 weeks of IV antibiotics (co mpleted ~6 weeks ago). Patient on chronic prednisone and Etanercept for psoriatic arthropathy. Currently ordered empiric vancomycin and ceftriaxone given concern for osteomyelitis. Blood cultures x 2 ordered and pending. Renal function appears to be around baseline (SCr: 0.98 mg/dL). Will follow renal function. Plan Vancomycin IV * Loading dose: 2250 mg (24 mg/kg) * Maintenance dose: 1250 mg IV (13 mg/kg) every 12 hours * Patient meets criteria for vancomycin AUC dosing nomogram * AUC/STEVE is the preferred PK/PD target for vancomycin * Target AUC/STEVE = 400-600 * AUC guided dosing is effective and associated with decreased risk of nephrotoxicity * Will order vanco trough if antibiotics are to be continued beyond 24-48 hours Ceftriaxone IV * 2 g IV q24h - appropriate Pharmacy will continue to follow and will adjust dose/frequency as necessary. Thank you.
[2020-09-05] MEDS: ASPIRIN 81 MG ECTAB PO SCH (20:47)
[2020-09-05] MEDS: LOSARTAN POTASSIUM 50 MG TAB PO SCH (20:47)
[2020-09-05] MEDS: POTASSIUM CHLORIDE CRTAB 20 MEQ TABCR PO SCH (20:48)
[2020-09-05] MEDS: OXYBUTYNIN CHLORIDE XL 5 MG TABCR PO SCH (20:48)
[2020-09-05] MEDS: SIMVASTATIN 20 MG TAB PO SCH (20:48)
[2020-09-05] MEDS ORDERED: INFLUENZA VIRUS QUAD VACCINE 0.5 ML SYR IM ONE (21:36)
[2020-09-05] MEDS ORDERED: INFLUENZA ADMINISTRATION CHARGE ONE (21:36)
[2020-09-06] MEDS ORDERED: VANCOMYCIN HCL 1,250 MG in SODIUM CHLORIDE 0.9% 250 ML IV SCH (05:00)
[2020-09-06] MEDS: VANCOMYCIN HCL 1,250 MG in SODIUM CHLORIDE 0.9% 250 ML IV SCH ×2 (05:05→17:50)
[2020-09-06 06:13] LABS: Hematocrit (blood only) 32.4 % (42-52); Hemoglobin 10.3 g/dL (14.0-18.0); Mean Corpuscular Hemoglobin 27.2 pg (25-34); Mean Corpuscular Hgb Conc 31.8 g/dL (32-36); Mean Corpuscular Volume 85.5 fL (80-100); Mean Platelet Volume 9.9 fL (7.4-10.4); Platelet Count 257 K/uL (130-400); RDW Coefficient of Variation 16.5 % (11.5-14.5); RDW Standard Deviation 51.5 fL (36.4-46.3); Red Blood Count 3.79 M/uL (4.7-6.1); White Blood Count 7.65 K/uL (4.8-10.8)
[2020-09-06 06:51] LABS: BUN Creatinine Ratio 21.9 (10-20); Blood Urea Nitrogen 20 mg/dl (7-18); C Reactive Protein < 0.29 mg/dl (0-0.29); Calcium 8.8 mg/dl (8.5-10.1); Carbon Dioxide 29 mmol/L (21-32); Chloride 107 mmol/L (98-107); Creatinine Clr Calc Pharmacy 64.9 ml/min; Est GFR (African American) 88.3; Est GFR (Non-African American) 76.2; Glucose 93 mg/dl (70-99); Magnesium 1.9 mg/dl (1.8-2.4); Potassium 3.6 mmol/L (3.5-5.1); Sodium 141 mmol/L (136-145)
[2020-09-06] MEDS: ENOXAPARIN INJ 40 MG/0.4 ML SYR SQ SCH (08:27)
[2020-09-06] MEDS: CEROVITE ADV FORMULA TAB PO SCH (08:27)
[2020-09-06] MEDS: predniSONE 5 MG TAB PO SCH (08:27)
[2020-09-06] MEDS: POTASSIUM CHLORIDE CRTAB 20 MEQ TABCR PO SCH ×2 (08:27→21:32)
[2020-09-06] MEDS: DULoxetine HCL 60 MG CAP PO SCH (08:28)
[2020-09-06] MEDS: ALFUZOSIN HCL 10 MG TAB PO SCH (08:28)
[2020-09-06] MEDS: hydroCHLOROthiazide 25 MG TAB PO SCH (08:28)
[2020-09-06] MEDS: amLODIPine BESYLATE 5 MG TAB PO SCH (08:28)
[2020-09-06] MEDS: INSULIN ASPART 100 UNITS/ML 3 ML PEN SC SCH ×4 (08:29→21:35)
[2020-09-06] MEDS: FINASTERIDE 5 MG TAB PO SCH (08:29)
--- NOTE | 2020-09-06 09:32 | Hospitalist Progress Note ---
Date of Service September 06, 2020 Assessment & Plan (1) Osteomyelitis: Hx of an epidural abscess requiring C3-C6 fixation in 04/2020. Finished 6 weeks of IV antibiotics approx. 6 weeks ago. Now with C4-C5 discitis/osteomyelitis on MRI from 09/04. * Discussed with [place] [facility] on admission-> This is actually NOT a new finding. It was noted on his prior MRIs at [place]. CRP and ESR are both normal. NSGY and ID both agree that biopsy is not warranted at this time. * Blood cultures ordered * Empiric vanc/ceftriaxone x 24-48 hours; if cultures negative, can probably discontinue abx and follow up outpatient per [facility] ID * Defer from officially consulting [facility] ID at this time. They felt there was not much else for them to add at this time. * Patient reported pain 1-2/10 to R posterior neck * ESR 15 on admission, currently 32. * CRP <0.29 from 0.4 on admission * Trend ESR, CBC in AM (2) Diabetes mellitus, type 2: * A1c was 5.9% in 06/2020. Patient reports when he has taken sugars at home he runs 100-120s. Req removal of diabetic diet. * Hold oral medications -- metformin 1g BID * Sliding scale insulin while inpatient * BSGs acceptable (3) Hypertension: * BP was 120/70 in the ED. * Continue home amlodipine, HCTZ, & losartan * BP stable * Continue to monitor (4) Hyperlipidemia: * Continue simvastatin (5) Urinary symptom or sign: * No LUTS today. * Continue alfuzosin, finasteride (6) Psoriatic arthropathy: * No eruptions noted today. Last etanercept was on Wednesday, so likely no need in the hospital. Follows with [facility] Rheumatology -- last note with possible consideration for switch to Otezla * Hold etanercept -- would continue to hold until seen to discuss other possible options * Continue prednisone for now given he has been on it for "years" (7) Skin lesion of right leg: * R anterior harrison, rapid growth reported by patient as was not there a week ago * Discussed with dermatology -- inpatient biopsy difficult and rec follow up in their office * Discussed with workers compensation legal secretary who arranged appt early next week -- next Wednesday at 2:45. (8) Hx of deep venous thrombosis: * In 2010 * Lovenox 40 mg SQ daily Dispo: monitor blood cultures. If negative after 48 hours could d/c and have pt follow up with ID outpt Admission and Anticipated Discharge Date Admission Date: September 05, 2020 Subjective Patient evaluated this morning. present. Ambulating well with walker witnessed from bathroom to chair upon arrival to room. Patient states he had concerns given pain in similar location of previous abscess. Only rating pain 1-2/10. Difficulty with extension given hardware but no pain with flexion or rotation. No fever, chills, chest pain, shortness of breath, abdominal pain, nausea, vomiting or dysuria (although he notes he does take medication for enlarged prostate but has been voiding without issues). Discussed that Dr. Levy spoke with both ID and Neurosurgery at [facility] and findings on MRI consistent with previous imaging but no evidence of abscess and that we would be able to discontinue abx after 48 hours if blood cultures remain negative and he can have follow up with ID/surgery outpatient. Patient got home from rehab 6-8 weeks ago after completing course of IV abx for osteo/disc with abscess. His main complaint today is that he would like diabetic diet removed as his sugars are 100-120 at home. Agreed that we can remove this restriction and see how his sugars are and cover with insulin if needed (did not need any coverage for breakfast reported). When asked about edema to his legs he states this is chronic and well managed with his HCTZ diuretic as outpatient. When asked about lesion to R harrison, he states he didn't really notice it but it has gotten significantly larger in size over the past week. Expressed he would like home at discharge as rehab was not very helpful last time. Review of Systems Review of Systems: All systems reviewed & are unremarkable except as noted in HPI & below Physical Exam Constitutional: WD/WN, vitals as above Eyes: EOM intact bilaterally; no conjunctival abnormality ENMT: mmm Neck: trachea midline, no thyromegaly normal visual inspection (Surgical scar near midline; well-healed.) and + neck tender (minimal, R sided at site of surgery. several excoriations to R of incision) Respiratory: normal respiratory effort, lungs clear to auscultation no respiratory distress Cardiovascular: Rate/Rhythm: regular rate and regular rhythm Heart Sounds: no murmur Extremities: + edema (trace-1+ pitting edema b/l LE) Gastrointestinal (Abdomen): Inspection/Auscultation: abdomen normal to inspection and normal bowel sounds; abdomen not distended Musculoskeletal: Head/Neck/Chest: normocephalic and head atraumatic strength equal Skin: cool, dry approx 1-1.5cm lesion to anterior R harrison, irregular borders with crusting, darkened areas. non-tender to palpation Neurologic: moves all extremities and awake Psychiatric: Orientation: alert, oriented to person and cooperative Results & Data Results & Data ([facility]) Vital Signs (Past 12 Hours) Vital Signs Temp Pulse Resp BP Pulse Ox 09/06/20 07:33 36.5 C 65 20 155/74 H 96 09/05/20 23:34 36.5 C 72 18 148/67 H 97 Laboratory Results 09/06/20 09/06/20 09/06/20 Range/Units 12:34 08:26 05:44 WBC 7.65 (4.8-10.8) K/uL RBC 3.79 L (4.7-6.1) M/uL Hgb 10.3 L (14.0-18.0) g/dL Hct 32.4 L (42-52) % MCV 85.5 (80-100) fL MCH 27.2 (25-34) pg MCHC 31.8 L (32-36) g/dL RDW Std Deviation 51.5 H (36.4-46.3) fL RDW Coeff of Caren 16.5 H (11.5-14.5) % Plt Count 257 (130-400) K/uL MPV 9.9 (7.4-10.4) fL ESR (0-14) mm/hr Sodium (136-145) mmol/L Potassium (3.5-5.1) mmol/L Chloride (98-107) mmol/L Carbon Dioxide (21-32) mmol/L Anion Gap (3-11) BUN (7-18) mg/dl Creatinine (0.6-1.4) mg/dl Est Cr Clr Drug Dosing ml/min Est GFR ( Amer) Est GFR (Non-Af Amer) BUN/Creatinine Ratio (10-20) Glucose (70-99) mg/dl POC Glucose 126 H 121 H (70-99) mg/dl Calcium (8.5-10.1) mg/dl Magnesium (1.8-2.4) mg/dl C-Reactive Protein (0-0.29) mg/dl 09/06/20 09/06/20 09/05/20 Range/Units 05:44 05:44 20:40 WBC (4.8-10.8) K/uL RBC (4.7-6.1) M/uL Hgb (14.0-18.0) g/dL Hct (42-52) % MCV (80-100) fL MCH (25-34) pg MCHC (32-36) g/dL RDW Std Deviation (36.4-46.3) fL RDW Coeff of Caren (11.5-14.5) % Plt Count (130-400) K/uL MPV (7.4-10.4) fL ESR 32 H (0-14) mm/hr Sodium 141 (136-145) mmol/L Potassium 3.6 D (3.5-5.1) mmol/L Chloride 107 (98-107) mmol/L Carbon Dioxide 29 (21-32) mmol/L Anion Gap 5.0 (3-11) BUN 20 H (7-18) mg/dl Creatinine 0.93 (0.6-1.4) mg/dl Est Cr Clr Drug Dosing 64.9 ml/min Est GFR ( Amer) 88.3 Est GFR (Non-Af Amer) 76.2 BUN/Creatinine Ratio 21.9 H (10-20) Glucose 93 (70-99) mg/dl POC Glucose 102 H (70-99) mg/dl Calcium 8.8 (8.5-10.1) mg/dl Magnesium 1.9 (1.8-2.4) mg/dl C-Reactive Protein < 0.29 (0-0.29) mg/dl 09/05/20 Range/Units 17:09 WBC (4.8-10.8) K/uL RBC (4.7-6.1) M/uL Hgb (14.0-18.0) g/dL Hct (42-52) % MCV (80-100) fL MCH (25-34) pg MCHC (32-36) g/dL RDW Std Deviation (36.4-46.3) fL RDW Coeff of Caren (11.5-14.5) % Plt Count (130-400) K/uL MPV (7.4-10.4) fL ESR (0-14) mm/hr Sodium (136-145) mmol/L Potassium (3.5-5.1) mmol/L Chloride (98-107) mmol/L Carbon Dioxide (21-32) mmol/L Anion Gap (3-11) BUN (7-18) mg/dl Creatinine (0.6-1.4) mg/dl Est Cr Clr Drug Dosing ml/min Est GFR ( Amer) Est GFR (Non-Af Amer) BUN/Creatinine Ratio (10-20) Glucose (70-99) mg/dl POC Glucose 104 H (70-99) mg/dl Calcium (8.5-10.1) mg/dl Magnesium (1.8-2.4) mg/dl C-Reactive Protein (0-0.29) mg/dl PG Care Time/CCT Total # of Minutes Spent Total Time Spent with Patient: Total time spent is greater than 50% in coordination of care (as documented) at patient's floor/unit and/or counseling patient: Coding Level of Care Code 25549 Subseq Hosp Care Lvl 2 Diagnoses Osteomyelitis M86.9 Osteomyelitis location: other site Osteomyelitis type: unspecified type Diabetes mellitus, type 2 E11.9 Hypertension I10 Hyperlipidemia E78.5 Urinary symptom or sign R39.9 Psoriatic arthropathy L40.50 Skin lesion of right leg L98.9 Hx of deep venous thrombosis Z86.718 (1) Osteomyelitis Osteomyelitis location: other site Osteomyelitis type: unspecified type Aries lified Code(s): M86.9 - Osteomyelitis, unspecified
[2020-09-06] MEDS: cefTRIAXone SODIUM 2,000 MG in DEXTROSE 5% 50 ML IV SCH (16:14)
[2020-09-06] MEDS: ASPIRIN 81 MG ECTAB PO SCH (21:33)
[2020-09-06] MEDS: OXYBUTYNIN CHLORIDE XL 5 MG TABCR PO SCH (21:33)
[2020-09-06] MEDS: SIMVASTATIN 20 MG TAB PO SCH (21:33)
[2020-09-07] MEDS: VANCOMYCIN HCL 1,250 MG in SODIUM CHLORIDE 0.9% 250 ML IV SCH ×2 (05:47→17:50)
[2020-09-07 06:23] LABS: Basophils # (auto) 0.03 K/uL (0-0.2); Basophils % (auto) 0.4 %; Eosinophils # (auto) 0.29 K/uL (0-0.5); Eosinophils % (auto) 4.2 %; Hematocrit (blood only) 30.7 % (42-52); Hemoglobin 9.6 g/dL (14.0-18.0); Immature Granulocytes # (auto) 0.01 K/uL (0.00-0.02); Immature Granulocytes % (auto) 0.1 %; Lymphocytes # (auto) 1.96 K/uL (1.2-3.4); Lymphocytes % (auto) 28.7 %; Mean Corpuscular Hemoglobin 26.7 pg (25-34); Mean Corpuscular Hgb Conc 31.3 g/dL (32-36); Mean Corpuscular Volume 85.5 fL (80-100); Mean Platelet Volume 9.9 fL (7.4-10.4); Monocytes # (auto) 0.94 K/uL (0.11-0.59); Monocytes % (auto) 13.8 %; Neutrophils % (auto) 52.8 %; Platelet Count 253 K/uL (130-400); RDW Standard Deviation 50.1 fL (36.4-46.3); Red Blood Count 3.59 M/uL (4.7-6.1); White Blood Count 6.83 K/uL (4.8-10.8)
[2020-09-07 07:05] LABS: Albumin Level 3.1 gm/dl (3.4-5.0); BUN Creatinine Ratio 19.9 (10-20); Calcium 8.7 mg/dl (8.5-10.1); Creatinine Clr Calc Pharmacy 58.1 ml/min; Est GFR (African American) 77.1; Est GFR (Non-African American) 66.6; Potassium 3.6 mmol/L (3.5-5.1)
[2020-09-07 07:08] LABS: Albumin Globulin Ratio 0.8 (0.9-2); Bilirubin,Total 0.3 mg/dl (0.2-1); Globulin 3.8 gm/dl (2.5-4.0); Total Protein 6.9 gm/dl (6.4-8.2)
[2020-09-07] MEDS: INSULIN ASPART 100 UNITS/ML 3 ML PEN SC SCH ×4 (08:46→21:06)
[2020-09-07] MEDS: POTASSIUM CHLORIDE CRTAB 20 MEQ TABCR PO SCH ×2 (08:47→21:04)
[2020-09-07] MEDS: predniSONE 5 MG TAB PO SCH (08:47)
[2020-09-07] MEDS: DULoxetine HCL 60 MG CAP PO SCH (08:48)
[2020-09-07] MEDS: CEROVITE ADV FORMULA TAB PO SCH (08:48)
[2020-09-07] MEDS: ALFUZOSIN HCL 10 MG TAB PO SCH (08:48)
[2020-09-07] MEDS: hydroCHLOROthiazide 25 MG TAB PO SCH (08:48)
[2020-09-07] MEDS: amLODIPine BESYLATE 5 MG TAB PO SCH (08:49)
[2020-09-07] MEDS: FINASTERIDE 5 MG TAB PO SCH (08:49)
[2020-09-07] MEDS: ENOXAPARIN INJ 40 MG/0.4 ML SYR SQ SCH (08:50)
--- NOTE | 2020-09-07 09:06 | Hospitalist Progress Note ---
Date of Service September 07, 2020 Assessment & Plan (1) Osteomyelitis: Hx of an epidural abscess requiring C3-C6 fixation in 04/2020. Finished 6 weeks of IV antibiotics approx. 6 weeks ago. Now with C4-C5 discitis/osteomyelitis on MRI from 09/04. * Discussed with [place] [facility] on admission-> This is actually NOT a new finding. It was noted on his prior MRIs at [place]. CRP and ESR are both normal. NSGY and ID both agree that biopsy is not warranted at this time. * Blood cultures ordered * Empiric vanc/ceftriaxone x 24-48 hours; * Defer from officially consulting [facility] ID at this time. They felt there was not much else for them to add at this time. * Patient reported pain 1-2/10 to R posterior neck * ESR 15 on admission, bumped to 32 and trending down to 29 on AM labs * CRP <0.29 from 0.4 on admission * Will continue abx overnight and if cultures remain negative will d/c in AM and have follow up with [facility] * BCx NGTD after 24 hours currently -- follow (2) Diabetes mellitus, type 2: * A1c was 5.9% in 06/2020. Patient reports when he has taken sugars at home he runs 100-120s. Req removal of diabetic diet. * Hold oral medications -- metformin 1g BID * Sliding scale insulin while inpatient * BSGs acceptable (3) Hypertension: * Held losartan last evening for 113/56 but resumed today as BP 150/64 * Continue home amlodipine, HCTZ, & losartan * Continue to monitor (4) Hyperlipidemia: * Continue simvastatin (5) Urinary symptom or sign: * No LUTS today. * Continue alfuzosin, finasteride (6) Psoriatic arthropathy: * No eruptions noted today. Last etanercept was on Wednesday, so likely no need in the hospital. Follows with [facility] Rheumatology -- last note with possible consideration for switch to Otezla * Hold etanercept -- would continue to hold until seen to discuss other possible options * Continue prednisone for now given he has been on it for "years" (7) Skin lesion of right leg: * R anterior harrison, rapid growth reported by patient as was not there a week ago * Discussed with dermatology -- inpatient biopsy difficult and rec follow up in their office * Discussed with census enumerator who arranged appt early next week -- next Wednesday at 2:45. Discussed with patient and (8) Hx of deep venous thrombosis: * In 2010 * Lovenox 40 mg SQ daily Dispo: monitor blood cultures. If continues to be negative tomorrow will d/c and have follow up outpatient Admission and Anticipated Discharge Date Admission Date: September 05, 2020 Subjective Patient evaluated this morning with at bedside. Blood cultures negative after 24 hours, 48 hours later this afternoon. Given elevation in inflammatory markers, patient and more comfortable with awaiting negative cultures and continuing abx through today with hopeful discharge in AM. Pain about the same today, inflammatory markers trending down. Located in same location but no interference with activity. Comes and goes. Discussed I spoke with Dr. Cox and they will see him early next week for biopsy of lesion to his R harrison. No fever, chills, chest pain, shortness of breath, abdominal pain, nausea, vomiting. AMbulating with walker without difficulty. Plans home tomorrow without needs unless cultures positive. Review of Systems Review of Systems: All systems reviewed & are unremarkable except as noted in HPI & below Physical Exam Constitutional: WD/WN, vitals as above cooperative and comfortable; no acute distress Eyes: + anicteric sclerae and PERRL ENMT: mmm Neck: normal visual inspection (Surgical scar near midline; well-healed.) and + neck tender (minimal, R sided at site of surgery. several excoriations to R of incision) Respiratory: normal respiratory effort, lungs clear to auscultation Cardiovascular: Rate/Rhythm: regular rate and regular rhythm Heart Sounds: no murmur Extremities: + edema (trace b/l LE) Gastrointestinal (Abdomen): Inspection/Auscultation: abdomen normal to inspection and normal bowel sounds; abdomen not distended Musculoskeletal: Head/Neck/Chest: normocephalic and head atraumatic Skin: cool, dry lesion to R harrison unchanged Psychiatric: A+Ox3, euthymic affect Lymphatic: no cervical or axillary lymphadenopathy Results & Data Results & Data ([facility]) Vital Signs (Past 12 Hours) Vital Signs Temp Pulse Resp BP Pulse Ox 09/07/20 07:10 36.3 C L 76 16 150/64 H 95 09/06/20 23:56 36.5 C 69 18 152/73 H 95 Laboratory Results 09/07/20 09/07/20 09/07/20 Range/Units 08:11 06:03 06:03 WBC (4.8-10.8) K/uL RBC (4.7-6.1) M/uL Hgb (14.0-18.0) g/dL Hct (42-52) % MCV (80-100) fL MCH (25-34) pg MCHC (32-36) g/dL RDW Std Deviation (36.4-46.3) fL RDW Coeff of Caren (11.5-14.5) % Plt Count (130-400) K/uL MPV (7.4-10.4) fL Immature Gran % (Auto) % Neut % (Auto) % Lymph % (Auto) % Eaton % (Auto) % Eos % (Auto) % Baso % (Auto) % Neut # (Auto) (1.4-6.5) K/uL Lymph # (Auto) (1.2-3.4) K/uL Eaton # (Auto) (0.11-0.59) K/uL Eos # (Auto) (0-0.5) K/uL Baso # (Auto) (0-0.2) K/uL Immature Gran # (Auto) (0.00-0.02) K/uL ESR 29 H (0-14) mm/hr Sodium 140 (136-145) mmol/L Potassium 3.6 (3.5-5.1) mmol/L Chloride 106 (98-107) mmol/L Carbon Dioxide 28 (21-32) mmol/L Anion Gap 5.0 (3-11) BUN 21 H (7-18) mg/dl Creatinine 1.04 (0.6-1.4) mg/dl Est Cr Clr Drug Dosing 58.1 ml/min Est GFR ( Amer) 77.1 Est GFR (Non-Af Amer) 66.6 BUN/Creatinine Ratio 19.9 (10-20) Glucose 109 H (70-99) mg/dl POC Glucose 116 H (70-99) mg/dl Calcium 8.7 (8.5-10.1) mg/dl Total Bilirubin 0.3 (0.2-1) mg/dl AST 16 (15-37) U/L ALT 20 (12-78) U/L Alkaline Phosphatase 77 (45-117) U/L Total Protein 6.9 (6.4-8.2) gm/dl Albumin 3.1 L (3.4-5.0) gm/dl Globulin 3.8 (2.5-4.0) gm/dl Albumin/Globulin Ratio 0.8 L (0.9-2) 09/07/20 09/06/20 09/06/20 Range/Units 06:03 20:31 17:04 WBC 6.83 (4.8-10.8) K/uL RBC 3.59 L (4.7-6.1) M/uL Hgb 9.6 L (14.0-18.0) g/dL Hct 30.7 L (42-52) % MCV 85.5 (80-100) fL MCH 26.7 (25-34) pg MCHC 31.3 L (32-36) g/dL RDW Std Deviation 50.1 H (36.4-46.3) fL RDW Coeff of Caren 16.0 H (11.5-14.5) % Plt Count 253 (130-400) K/uL MPV 9.9 (7.4-10.4) fL Immature Gran % (Auto) 0.1 % Neut % (Auto) 52.8 % Lymph % (Auto) 28.7 % Eaton % (Auto) 13.8 % Eos % (Auto) 4.2 % Baso % (Auto) 0.4 % Neut # (Auto) 3.60 (1.4-6.5) K/uL Lymph # (Auto) 1.96 (1.2-3.4) K/uL Eaton # (Auto) 0.94 H (0.11-0.59) K/uL Eos # (Auto) 0.29 (0-0.5) K/uL Baso # (Auto) 0.03 (0-0.2) K/uL Immature Gran # (Auto) 0.01 (0.00-0.02) K/uL ESR (0-14) mm/hr Sodium (136-145) mmol/L Potassium (3.5-5.1) mmol/L Chloride (98-107) mmol/L Carbon Dioxide (21-32) mmol/L Anion Gap (3-11) BUN (7-18) mg/dl Creatinine (0.6-1.4) mg/dl Est Cr Clr Drug Dosing ml/min Est GFR ( Amer) Est GFR (Non-Af Amer) BUN/Creatinine Ratio (10-20) Glucose (70-99) mg/dl POC Glucose 95 124 H (70-99) mg/dl Calcium (8.5-10.1) mg/dl Total Bilirubin (0.2-1) mg/dl AST (15-37) U/L ALT (12-78) U/L Alkaline Phosphatase (45-117) U/L Total Protein (6.4-8.2) gm/dl Albumin (3.4-5.0) gm/dl Globulin (2.5-4.0) gm/dl Albumin/Globulin Ratio (0.9-2) 09/06/20 Range/Units 12:34 WBC (4.8-10.8) K/uL RBC (4.7-6.1) M/uL Hgb (14.0-18.0) g/dL Hct (42-52) % MCV (80-100) fL MCH (25-34) pg MCHC (32-36) g/dL RDW Std Deviation (36.4-46.3) fL RDW Coeff of Caren (11.5-14.5) % Plt Count (130-400) K/uL MPV (7.4-10.4) fL Immature Gran % (Auto) % Neut % (Auto) % Lymph % (Auto) % Eaton % (Auto) % Eos % (Auto) % Baso % (Auto) % Neut # (Auto) (1.4-6.5) K/uL Lymph # (Auto) (1.2-3.4) K/uL Eaton # (Auto) (0.11-0.59) K/uL Eos # (Auto) (0-0.5) K/uL Baso # (Auto) (0-0.2) K/uL Immature Gran # (Auto) (0.00-0.02) K/uL ESR (0-14) mm/hr Sodium (136-145) mmol/L Potassium (3.5-5.1) mmol/L Chloride (98-107) mmol/L Carbon Dioxide (21-32) mmol/L Anion Gap (3-11) BUN (7-18) mg/dl Creatinine (0.6-1.4) mg/dl Est Cr Clr Drug Dosing ml/min Est GFR ( Amer) Est GFR (Non-Af Amer) BUN/Creatinine Ratio (10-20) Glucose (70-99) mg/dl POC Glucose 126 H (70-99) mg/dl Calcium (8.5-10.1) mg/dl Total Bilirubin (0.2-1) mg/dl AST (15-37) U/L ALT (12-78) U/L Alkaline Phosphatase (45-117) U/L Total Protein (6.4-8.2) gm/dl Albumin (3.4-5.0) gm/dl Globulin (2.5-4.0) gm/dl Albumin/Globulin Ratio (0.9-2) PG Care Time/CCT Total # of Minutes Spent Total Time Spent with Patient: Total time spent is greater than 50% in coordination of care (as documented) at patient's floor/unit and/or counseling patient: Coding Level of Care Code 88203 Subseq Hosp Care Lvl 2 Diagnoses Osteomyelitis M86.9 Osteomyelitis location: other site Osteomyelitis type: unspecified type Diabetes mellitus, type 2 E11.9 Hypertension I10 Hyperlipidemia E78.5 Urinary symptom or sign R39.9 Psoriatic arthropathy L40.50 Skin lesion of right leg L98.9 Hx of deep venous thrombosis Z86.718 (1) Osteomyelitis Osteomyelitis location: other site Osteomyelitis type: unspecified type Qualified Code(s): M86.9 - Osteomyelitis, unspecified
[2020-09-07] MEDS: cefTRIAXone SODIUM 2,000 MG in DEXTROSE 5% 50 ML IV SCH (16:29)
--- NOTE | 2020-09-07 20:29 | Pharmacy Report ---
Pharmacy Abx Dose Short Note - Date of Service September 07, 2020 - Assessment & Plan Assessment 80 year old M receiving empiric vancomycin and ceftriaxone IV for treatment of osteomyelitis/discitis. From Hospitalist progress note: * Hx of epidural abscess requiring C3-C6 fixation in 04/2020. Finished 6 weeks of IV antibiotics approx. 6 weeks ago. Now with C4-C5 discitis/osteomyelitis on MRI from 09/04. * Hospitalist discussed with [place] [facility] on admission-> This is actually NOT a new finding. It was noted on his prior MRIs at [place]. CRP and ESR are both normal. NSGY and ID both agree that biopsy is not warranted at this time. * Empiric vanc/ceftriaxone x 24-48 hours; Plan Vancomycin * Trough level of 19.6 mcg/mL is therapeutic but nearing the upper limit of a therapeutic trough * I am concerned that this patient may accumulate drug due to Scr trending upward and borderline BMI * Will change to 1000 mg (11 mg/kg) IV every 12 hours * Goal trough level: >15 mcg/mL * Further levels to be ordered with continued therapy. Monitor Scr closely. Pharmacy will continue to follow and will adjust dose/frequency as necessary. Thank you.
[2020-09-07] MEDS: ASPIRIN 81 MG ECTAB PO SCH (21:04)
[2020-09-07] MEDS: OXYBUTYNIN CHLORIDE XL 5 MG TABCR PO SCH (21:04)
[2020-09-07] MEDS: SIMVASTATIN 20 MG TAB PO SCH (21:04)
[2020-09-07] MEDS: LOSARTAN POTASSIUM 50 MG TAB PO SCH (21:27)
[2020-09-08 06:12] LABS: Basophils # (auto) 0.03 K/uL (0-0.2); Basophils % (auto) 0.4 %; Eosinophils # (auto) 0.29 K/uL (0-0.5); Eosinophils % (auto) 3.9 %; Hematocrit (blood only) 31.3 % (42-52); Immature Granulocytes # (auto) 0.02 K/uL (0.00-0.02); Immature Granulocytes % (auto) 0.3 %; Lymphocytes # (auto) 2.28 K/uL (1.2-3.4); Lymphocytes % (auto) 30.7 %; Mean Corpuscular Hemoglobin 27.1 pg (25-34); Mean Corpuscular Hgb Conc 31.9 g/dL (32-36); Mean Corpuscular Volume 84.8 fL (80-100); Mean Platelet Volume 9.8 fL (7.4-10.4); Monocytes % (auto) 14.8 %; Neutrophils % (auto) 49.9 %; Platelet Count 252 K/uL (130-400); RDW Coefficient of Variation 16.2 % (11.5-14.5); RDW Standard Deviation 49.5 fL (36.4-46.3); Red Blood Count 3.69 M/uL (4.7-6.1); White Blood Count 7.42 K/uL (4.8-10.8)
[2020-09-08 06:49] LABS: BUN Creatinine Ratio 21.1 (10-20); C Reactive Protein 0.4 mg/dl (0-0.29); Calcium 8.9 mg/dl (8.5-10.1); Creatinine Clr Calc Pharmacy 60.4 ml/min; Est GFR (African American) 80.9; Est GFR (Non-African American) 69.8; Potassium 3.6 mmol/L (3.5-5.1)
[2020-09-08] MEDS ORDERED: VANCOMYCIN HCL 1,000 MG in SODIUM CHLORIDE 0.9% 250 ML IV SCH (08:00)
[2020-09-08] MEDS: FINASTERIDE 5 MG TAB PO SCH (08:41)
[2020-09-08] MEDS: POTASSIUM CHLORIDE CRTAB 20 MEQ TABCR PO SCH (08:41)
[2020-09-08] MEDS: CEROVITE ADV FORMULA TAB PO SCH (08:41)
[2020-09-08] MEDS: ALFUZOSIN HCL 10 MG TAB PO SCH (08:41)
[2020-09-08] MEDS: DULoxetine HCL 60 MG CAP PO SCH (08:41)
[2020-09-08] MEDS: hydroCHLOROthiazide 25 MG TAB PO SCH (08:41)
[2020-09-08] MEDS: predniSONE 5 MG TAB PO SCH (08:41)
[2020-09-08] MEDS: amLODIPine BESYLATE 5 MG TAB PO SCH (08:41)
[2020-09-08] MEDS: ENOXAPARIN INJ 40 MG/0.4 ML SYR SQ SCH (08:41)
[2020-09-08] MEDS: INSULIN ASPART 100 UNITS/ML 3 ML PEN SC SCH (08:45)
--- NOTE | 2020-09-08 09:57 | Discharge Summary ---
Date of Service September 08, 2020 Admission HPI Per Admitting Provider 80yo M w/ hx of epidural abscess in 04/2020 s/p fixation presents with neck pain. After his infection and surgery, he was on antibiotics for weeks which finished 6 weeks ago. He restarted his etanercept about 6 weeks ago as well. He reports that he had been doing well for this entire time until about 3-4 days ago, when he had pain in his neck near the site of his prior surgery. He otherwise has been entirely healthy and has had no other symptoms including fevers, chills, sweats, shortness of breath, chest pain, or other issues. MRI of the cervical spine was done which showed C4/C5 discitis/osteomyelitis. Admission Exam Per Admitting Provider Constitutional: WD/WN, vitals as above Eyes: EOM intact bilaterally; no conjunctival abnormality ENMT: external ear and nose normal, oropharynx normal Neck: trachea midline, no thyromegaly normal visual inspection (Surgical scar near midline; well-healed.) and + neck tender (At site of surgery) Respiratory: normal respiratory effort, lungs clear to auscultation no respiratory distress Cardiovascular: RRR, no murmur, no edema Gastrointestinal (Abdomen): Inspection/Auscultation: abdomen normal to inspection; abdomen not distended Musculoskeletal: no cyanosis or clubbing, extremities motor strength 5/5 Skin: no rashes, warm and dry Neurologic: moves all extremities and awake Psychiatric: Orientation: alert, oriented to person and cooperative Principal Diagnosis Neck Pain, C4/C5 Discitis Discharge Exam Constitutional WD/WN, vitals as above cooperative and comfortable; no acute distress Eyes + anicteric sclerae and PERRL ENMT external ear and nose normal, oropharynx normal Neck normal visual inspection (Surgical scar near midline; well-healed.) and + neck tender (minimal, R sided at site of surgery. several excoriations to R of incision) Respiratory normal respiratory effort, lungs clear to auscultation Cardiovascular Rate/Rhythm: regular rate and regular rhythm Heart Sounds: no murmur Extremities: + edema (trace b/l LE) Gastrointestinal (Abdomen) Inspection/Auscultation: abdomen normal to inspection and normal bowel sounds; abdomen not distended Musculoskeletal Head/Neck/Chest: normocephalic and head atraumatic Skin excoriations to R posterior neck from scratching 1.5-2cm lesion R harrison with irregular borders, discoloration Neurologic patellar DTR's 2+ bilat, sensation intact Psychiatric A+Ox3, euthymic affect Lymphatic no cervical or axillary lymphadenopathy Discharge Data Allergies Allergy/AdvReac Type Severity Reaction Status Date / Time amoxicillin Allergy Mild lip Verified 09/05/20 12:49 swelling clavulanic acid Allergy Mild lip Verified 09/05/20 12:49 swelling VINCE Inhibitors Allergy Unknown UNKNOWN-PT Verified 09/05/20 12:49 NOT AWARE clarithromycin Allergy Unknown UNKNOWN-PT Verified 09/05/20 12:49 NOT AWARE Sulfa (Sulfonamide Allergy Unknown LIP Verified 09/05/20 12:49 Antibiotics) SWELLING WITH SULFA DRUGS Consultations 09/05/20 12:31 ED Decision to Admit Stat Hospital Course (1) Osteomyelitis: Hx of an epidural abscess requiring C3-C6 fixation in 04/2020. Finished 6 weeks of IV antibiotics approx. 6 weeks ago. Now with C4-C5 discitis/osteomyelitis on MRI from 09/04. * Discussed with [facility] on admission-> This is actually NOT a new finding. It was noted on his prior MRIs at [facility]. CRP and ESR are both normal. NSGY and ID both agree that biopsy is not warranted at this time. * Blood cultures ordered and patient was placed on Empiric vanc/ceftriaxone x 24-48 hours; * Blood cultures remained negative after 48 hours and antibiotics were discontinued * Patient provided labs to have repeat inflammatory markers and blood counts done in next 3 days to ensure stability * To follow up with [facility] ID outpatient (2) Diabetes mellitus, type 2: * A1c was 5.9% in 06/2020. Patient reports when he has taken sugars at home he runs 100-120s. Req removal of diabetic diet. * Hold metformin while inpatient and utilized SSI insulin * BSGs well controlled * Resumed home meds at d/c (3) Hypertension: * Continued home amlodipine, HCTZ, & losartan. BP 134/70 (4) Hyperlipidemia: * Continued simvastatin (5) Urinary symptom or sign: * No LUTS today. * Continued alfuzosin, finasteride (6) Psoriatic arthropathy: * No eruptions noted today. Last etanercept was on Wednesday, so likely no need in the hospital. Follows with [facility] -- last note with possible consideration for switch to Otezla * Hold etanercept -- would continue to hold until seen to discuss other possible options * Continued prednisone for now given he has been on it for "years" (7) Skin lesion of right leg: * R anterior harrison, rapid growth reported by patient as was not there a week ago * Discussed with dermatology -- inpatient biopsy difficult and rec follow up in their office * Discussed with city secretary who arranged appt early next week -- next Wednesday at 2:45. Discussed with patient and (8) Hx of deep venous thrombosis: * In 2010 * Lovenox 40 mg SQ daily while inpatient Total Time Total Time Spent Total Time Spent (In Minutes): 60 Discharge Plan Discharge Items Patient Disposition: Home - Self-Care Reason For Visit: POSSIBLE C4/C5 DISCITES Discharge Diagnosis: Neck Pain, C4/C5 discitis/osteo not new finding per [facility] Goals: You have been hospitalized for an acute medical problem. During your stay at [facility], we have made an effort to correct the problem that brought you to the hospital while keeping you as comfortable as possible. Medications were used to bring your condition under control and your discharge instructions will include directions for any medications you should take after leaving the hospital. Please make sure you see your Primary Care Provider as part of your follow up plan. Activity: Resume your previous activity Non-emergency contact: Primary Care Provider, Surgeon and Specialist Call non-emergency contact if: you have any medication questions, your symptoms worsen and your pain is unusual for you Follow-up/Referrals: Ana Lindo DO [Primary Care Provider] - Mariano Cox MD [Physician] - 09/11/20 2:45 pm Diet: Carb Consistent or DM2 and Heart Healthy Ambulatory Orders: Complete Blood Count with Diff (Timed) Timeframe: 3 Days Location: Determined by Patient Ordered By: Shaina Stein C Reactive Protein (Routine) Timeframe: 3 Days Location: Determined by Patient Ordered By: Shaina Stein Erythrocyte Sedimentation Rate (Routine) Timeframe: 3 Days Location: Determined by Patient Ordered By: Shaina Stein Addtl Attending Provider Instructions: You have been hospitalized for neck pain with initial concerns for discitis/osteomyelitis and were started empirically on antibiotics. Imaging findings were discussed with neurosurgery and infectious disease at [facility] and felt to be old findings from previous imaging and could avoid vs continue antibiotics for 48 hours and discontinue if negative. Blood cultures were drawn and continue to be negative after 48 hours. You should follow up with them in the next 2-4 weeks after discharge to monitor your progress. You should also follow up with your PCP in the next week to monitor your progress. For the lesion to your RIGHT leg, Dr. Cox (Dermatology) was contacted and you have an appointment on Wednesday as above. Please keep this appointment. You have also been given lab slips to have your blood counts and inflammatory markers drawn on Wednesday to ensure they are normal. Please return to the emergency department with any fever, chill, worsening neck pain or for any other symptoms that are concerning for you. It has been a pleasure being a part of the medical team providing for you while you have been in the hospital. Take care! Pending Studies at Discharge: Yes Studies:: Blood cultures -- negative after 48 hours Stand-Alone Forms: [facility], Smoking Cessation Medications and DC Order Prescriptions: Continued aspirin [Adult Low Dose Aspirin] 81 mg tablet,delayed release (DR/EC) 81 mg PO QPM RF: 0 simvastatin 20 mg tablet 20 mg PO QPM Qty: 90 RF: 1 potassium chloride 20 mEq tablet extended release 20 meq PO BID Qty: 60 RF: 5 oxybutynin chloride 10 mg tablet extended release 24hr 10 mg PO QPM Qty: 90 RF: 1 metformin 1,000 mg tablet 1,000 mg PO BID Qty: 180 RF: 1 hydrocodone-acetaminophen 5-325 mg tablet 1 tab PO Q6 PRN (Reason: pain) Qty: 30 RF: 0 alfuzosin [Uroxatral] 10 mg tablet extended release 24 hr 10 mg PO DAILY Qty: 90 RF: 3 acetaminophen [Tylenol] 325 mg Tablet 650 mg PO Q4H PRN (Reason: Pain) RF: 0 prednisone 5 mg tablet 5 mg PO QAM RF: 0 [id number]-[id number]-[id number] Tablet 1 tab PO QAM RF: 0 amlodipine 10 mg tablet 10 mg PO QAM RF: 0 losartan 100 mg tablet 100 mg PO QPM RF: 0 finasteride [Proscar] 5 mg tablet 5 mg PO QAM RF: 0 duloxetine 60 mg capsule,delayed release(DR/EC) 60 mg PO QAM RF: 0 hydrochlorothiazide 25 mg tablet 0 mg PO DAILY RF: 0 Enbrel SureClick 50 mg/mL (1 mL) pen injector 50 mg SUBCUT WK RF: 0 Hold Instructions: d/t infection docusate sodium [Stool Softener] 100 mg Capsule 100 mg PO DAILY PRN (Reason: Constipation) RF: 0 hydrocodone-acetaminophen [[place]] 5-325 mg tablet 1 - 2 tab PO Q6H PRN (Reason: pain) Qty: 24 RF: 0 Discharge Orders: Discharge Order (Routine); Ordered 09/08/20 Ordered By: Shaina Stein Admission Data Admit Date/Time: 09/05/20 14:10 Attending Provider: Paras Muhammad Admit Provider: Maik Levy Primary Care Provider: Ana Lindo Other Providers: Maik Levy Other Interventions: Discharge Summary Assessment (RN) Last Done: 09/08/20 11:10 Coding Level of Care Code D/C Day Management >30 mins Diagnoses Osteomyelitis M86.9 Osteomyelitis location: other site Osteomyelitis type: unspecified type Diabetes mellitus, type 2 E11.9 Hypertension I10 Hyperlipidemia E78.5 Urinary symptom or sign R39.9 Psoriatic arthropathy L40.50 Skin lesion of right leg L98.9 Hx of deep venous thrombosis Z86.718
--- NOTE | 2020-09-23 12:13 | Coding Query ---
CODING QUERY To promote full compliance with coding requirements relating to patient care, provider participation is requested in all cases of inbound sales manager uncertainty. Please assist us with the question(s) below: Coding Question(s): Upon admission it was thought that the patient had C4-C5 discitis/osteomyelitis however this is not a new finding. Blood cultures remained negative after 48 hours and antibiotics were discontinued. Please indicate the status of the patient's osteomyelitis at discharge. Physician's Response(s): ( ) Osteomyelitis, unspecified ( ) Acute osteomyelitis ( x) Chronic osteomyelitis ( ) Other osteomyelitis (Please specify) ( ) Osteomyelitis ruled out Thank you Cherise Ag Principal Diagnosis: "that condition established after study, to be chiefly responsible for occasioning the admission of the patient to the hospital for care." Co-Existing Principal Diagnosis: "when two or more diagnoses equally meet the criteria for principal diagnosis as determined by the circumstances of admission, diagnostic work up, and/or therapy provided, and the Alphabetic Index, Tabular List, or another coding guideline does not provide sequencing direction, any one of the diagnoses may be sequenced first." "When the physician has documented what appears to be a current diagnosis in the body of the record, but has not included the diagnosis in the final diagnostic statement, the physician should be asked whether the diagnosis should be added." (Source Coding [facility] 2 QTR90. p3-4) PILLO
== END 2020-09-08 12:54 | disposition home or self-care (01) | DRG 552 ==
LOC: ED 10:29 → SUATTDRO 14:10 → 3E 14:10

== ENCOUNTER 2021-07-16 09:35 | Inpatient (IN) ==
[2021-07-16] MEDS ORDERED: SODIUM CHLORIDE 0.9% 1000ML 1,000 ML IV ONE (11:49)
[2021-07-16] MEDS ORDERED: cefTRIAXone SODIUM 1,000 MG/50 ML BAG IV STA (11:49)
--- NOTE | 2021-07-16 11:54 | Emergency Department Note ---
Impression & Plan Cellulitis, Elevated lactic acid level, Tachycardia ED Provider Note NAME: ROGE WOODSON AGE: 80 SEX: M : 1940 ARRIVES VIA: Walk-In INFORMANT: Patient ED PROVIDER(S): Jonathan Munoz DO CHIEF COMPLAINT: Weakness HPI: Patient is an 80-year-old male who presents to the ER for weakness. He notes this has been present for the past week and a half. He notes he does have a little bit of cough but nothing has changed. No chest pain or shortness of breath. No belly pain, nausea, or vomiting. He does admit to dysuria, urgency, and some frequency. He notes that he is getting worsening redness on his left harrison. Uncertain when the fever started. He went to his PCP and he was referred in as he was found to be hypoxic at 88%. ROS: See above HPI for pertinent positives & negatives. A total of 10 systems reviewed and were otherwise negative. PAST MEDICAL HISTORY:See Below PAST SURGICAL HISTORY:See Below FAMILY HISTORY:See Below SOCIAL HISTORY:See Below HOME MEDICATIONS:See Below ALLERGIES:See Below VITALS:See Below PHYSICAL EXAMINATION: GENERAL: Sitting up in bed, alert, chronically ill-appearing, disheveled EYE EXAM: normal conjunctiva. OROPHARYNX: mask in place NECK: supple, no nuchal rigidity, no adenopathy, non-tender LUNGS: Diminished bilaterally. Normal chest wall mechanics HEART: no murmurs, S1 normal and S2 normal ABDOMEN: abdomen soft, non-tender, normo-active bowel sounds, no masses, no rebound or guarding. BACK: Back is symmetrical on inspection and there is no deformity, no midline tenderness, no CVA tenderness. SKIN: Erythema over the left anterior harrison which is warm and tender to palpation with central wound UPPER EXTREMITIES: upper extremities are grossly normal. LOWER EXTREMITIES: No pitting edema. NEURO EXAM: Normal sensorium, cranial nerves II-XII grossly intact, normal speech, no gross weakness of arms, no gross weakness of legs. MEDICAL DECISION MAKING: Patient is an 80-year-old male who presents the ER for the above-stated complaint. IV was obtained. He was found to have a pulse ox in the low 90s. labs show no sign of glucose is anemia. BMP with mild hyper treat low at 1.4. Pro-Tung was normal. UA was clean. Covid was 9. Lactate was elevated. Chest x-ray was unremarkable. Patient was given IV vancomycin and Rocephin for the cellulitis on the left anterior harrison which I do feel was causing the symptoms. He had a benign belly. He was updated bedside. Discussed with the hospitalist admitted for further work-up. Triage Nursing notes reviewed. Limited review of prior medical records performed Vital Signs: reviewed and remarkable for hypoxic Differential diagnosis: Infection, dehydration, metabolic abnormality, hypo/hyperglycemia, electrolyte disturbance, anemia, hypoxia, cardiac sources, intracerebral event, toxicologic, neurologic, as well as other pathologies. ER treatment provided: See below Diagnostics interpreted by me: ECG: Sinus rhythm rate 80 Inferior Q waves QTC 417 PVCs present Cardiac Monitoring: An order was placed for continuous cardiac monitoring. The monitor shows a rate of 82 with sinus rhythm. Laboratory studies: As stated above and show below. 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 Per record review they were unable to intubate on 3 attempts. Fast track LMA were unsuccessful. Were able to mask vent with 2 people. Intubated with nasal fiberoptic. 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) S/P arthroscopy of shoulder (01/2016) Left S/P hammer toe correction (11/2013) arthrodesis R toe S/P laminectomy (04/25/20) S/P laparoscopic cholecystectomy (07/2018) S/P left knee arthroscopy (10/2015) Status post carpal tunnel release of both wrists Family History Mother Cardiac disorder Myocardial infarction Other No family history of adverse response to anesthesia Denies family history of Ovarian cancer Prostate cancer Breast cancer Colorectal cancer Social History Smoking Status: Former smoker Tobacco Type: Cigarettes Cigarettes Per Day: 40 (2ppd); Number of Years Since Quit: 40; Second Hand Exposure: No; Hx Alcohol Use: No Hx Substance Use: No Preferred Language: Mongolian Communication Ability: Effective Visual Impairment: No Limitations Hearing Ability: Normal Gamb Cutter Required: No Beliefs That Will Affect Care: None marital status: Current Living Situation: Spouse current occupational status: retired How many Children do You have: 4 How many Children do You have Comment: and one son are local and able to assist with care as needed. Other children live further away. Feels Safe at Home: Yes caffeine: Yes during the past year weight has: increased > 10 lbs Dental Care, Regularly: Yes Physical Activity Frequency: Daily Seatbelt Use: always Sunscreen Use: Yes Assistive Devices: Walker Allergies Allergies Allergy/AdvReac Type Severity Reaction Status Date / Time amoxicillin Allergy Mild lip Verified 07/16/21 12:33 swelling clavulanic acid Allergy Mild lip Verified 07/16/21 12:33 swelling VINCE Inhibitors Allergy Unknown UNKNOWN-PT Verified 07/16/21 12:33 NOT AWARE clarithromycin Allergy Unknown UNKNOWN-PT Verified 07/16/21 12:33 NOT AWARE Sulfa (Sulfonamide Allergy Unknown LIP Verified 07/16/21 12:33 Antibiotics) SWELLING WITH SULFA DRUGS Home Meds Home Medications Medication Instructions Recorded Confirmed aspirin 81 mg tablet,delayed 81 mg PO QPM 06/29/18 07/16/21 release (Adult Low Dose Aspirin) docusate sodium 100 mg capsule 100 mg PO Q OTHER DAY PRN 09/13/19 07/16/21 (Stool Softener) lauvvmdjkcgd-pytgzdcp-gfzoat tablet 1 tab PO QAM 09/05/20 07/16/21 acetaminophen 500 mg tablet 1,000 mg PO Q6H PRN 07/03/21 09/15/21 (Tylenol Extra Strength) alfuzosin 10 mg tablet,extended 10 mg PO DAILY 05/03/21 07/16/21 release 24 hr (Uroxatral) prednisone 10 mg tablet 10 mg PO QAM 05/15/21 07/16/21 hydroxychloroquine 200 mg tablet 200 mg PO DAILY 07/02/21 07/16/21 rifampin 300 mg capsule 300 mg PO BID cap 07/02/21 07/16/21 Previous Rx's Medication Instructions Recorded amlodipine 10 mg tablet 10 mg PO QAM #90 tab 12/17/20 oxybutynin chloride 10 mg 10 mg PO QPM #90 tab 12/17/20 tablet,extended release 24 hr finasteride 5 mg tablet (Proscar) 5 mg PO QAM #90 tab 01/13/21 metformin 1,000 mg tablet 1,000 mg PO BID #180 tab 04/18/21 potassium chloride 20 mEq 20 meq PO DAILY #90 tab 05/28/21 tablet,extended release losartan 100 mg tablet 100 mg PO QPM #90 tab 06/24/21 doxycycline hyclate 100 mg capsule 100 mg PO BID #28 cap 06/25/21 gabapentin 300 mg capsule 300 mg PO TID #90 cap 07/03/21 simvastatin 20 mg tablet 20 mg PO QPM #90 tab 07/09/21 Results & Data (ED) Vital Signs Vital Signs - 24 hr 07/16/21 09:50 07/16/21 11:23 07/16/21 12:36 Temperature 36.6 C Temperature Source Temporal Artery Scan Pulse Rate 90 81 Pulse Rate from SpO2 Sensor 82 Respiratory Rate 18 22 21 Respiratory Effort / Characteristics Non-Labored Non-Labored Respiratory Depth Normal Blood Pressure 100/62 134/73 Blood Pressure Mean 74 93 Pulse Oximetry 92 91 Oxygen Delivery Method Room Air Oxygen Flow Rate Sepsis Recent Fever Within 48 Hours No Sepsis New/Unexplained Change in Mental Status No Sepsis Action Taken by Nursing No Action Required 07/16/21 12:38 07/16/21 12:46 07/16/21 13:00 Temperature Temperature Source Pulse Rate 80 84 83 Pulse Rate from SpO2 Sensor 78 Respiratory Rate 21 15 21 Respiratory Effort / Characteristics Non-Labored Respiratory Depth Blood Pressure 127/67 129/72 139/71 Blood Pressure Mean 87 91 93 Pulse Oximetry 97 93 Oxygen Delivery Method Room Air Oxygen Flow Rate Sepsis Recent Fever Within 48 Hours Sepsis New/Unexplained Change in Mental Status Sepsis Action Taken by Nursing 07/16/21 13:15 07/16/21 13:30 07/16/21 13:45 Temperature Temperature Source Pulse Rate 81 77 85 Pulse Rate from SpO2 Sensor 80 77 78 Respiratory Rate 17 17 17 Respiratory Effort / Characteristics Non-Labored Respiratory Depth Blood Pressure 139/69 140/70 142/72 H Blood Pressure Mean 92 93 95 Pulse Oximetry 87 L 87 L 90 Oxygen Delivery Method Room Air Oxygen Flow Rate Sepsis Recent Fever Within 48 Hours Sepsis New/Unexplained Change in Mental Status Sepsis Action Taken by Nursing 07/16/21 14:00 07/16/21 14:15 07/16/21 14:30 Temperature Temperature Source Pulse Rate 84 78 80 Pulse Rate from SpO2 Sensor 84 79 Respiratory Rate 18 17 17 Respiratory Effort / Characteristics Non-Labored Respiratory Depth Blood Pressure 137/70 133/77 148/62 H Blood Pressure Mean 92 95 90 Pulse Oximetry 91 93 Oxygen Delivery Method Nasal Cannula Nasal Cannula Oxygen Flow Rate 3 3 Sepsis Recent Fever Within 48 Hours Sepsis New/Unexplained Change in Mental Status Sepsis Action Taken by Nursing 07/16/21 14:45 07/16/21 15:00 07/16/21 15:15 Temperature Temperature Source Pulse Rate 79 82 84 Pulse Rate from SpO2 Sensor 82 84 Respiratory Rate 17 18 20 Respiratory Effort / Characteristics Respiratory Depth Blood Pressure 130/69 150/72 H 147/78 H Blood Pressure Mean 89 98 101 Pulse Oximetry 94 99 Oxygen Delivery Method Oxygen Flow Rate Sepsis Recent Fever Within 48 Hours Sepsis New/Unexplained Change in Mental Status Sepsis Action Taken by Nursing 07/16/21 15:30 07/16/21 15:45 07/16/21 16:00 Temperature Temperature Source Pulse Rate 87 80 86 Pulse Rate from SpO2 Sensor 84 82 86 Respiratory Rate 20 17 24 Respiratory Effort / Characteristics Respiratory Depth Blood Pressure 132/50 L 155/81 H 143/70 H Blood Pressure Mean 77 105 94 Pulse Oximetry 91 88 L 98 Oxygen Delivery Method Oxygen Flow Rate Sepsis Recent Fever Within 48 Hours Sepsis New/Unexplained Change in Mental Status Sepsis Action Taken by Nursing 07/16/21 16:35 07/16/21 16:40 Temperature Temperature Source Pulse Rate 91 H 95 H Pulse Rate from SpO2 Sensor Respiratory Rate 27 H 26 H Respiratory Effort / Characteristics Respiratory Depth Blood Pressure Blood Pressure Mean Pulse Oximetry Oxygen Delivery Method Oxygen Flow Rate Sepsis Recent Fever Within 48 Hours Sepsis New/Unexplained Change in Mental Status Sepsis Action Taken by Nursing Laboratory Data Result diagrams: 07/16/21 11:33 07/16/21 12:34 Lab Results 07/16/21 07/16/21 07/16/21 Range/Units 11:33 11:33 11:33 WBC 7.35 (4.8-10.8) K/uL RBC 4.09 L (4.7-6.1) M/uL Hgb 11.3 L (14.0-18.0) g/dL Hct 35.1 L (42-52) % MCV 85.8 (80-100) fL MCH 27.6 (25-34) pg MCHC 32.2 (32-36) g/dL RDW Std Deviation 50.2 H (36.4-46.3) fL RDW Coeff of Caren 16.1 H (11.5-14.5) % Plt Count 259 (130-400) K/uL MPV 10.1 (7.4-10.4) fL Immature Gran % (Auto) 0.8 % Neut % (Auto) 77.3 % Lymph % (Auto) 8.8 % [place] % (Auto) 8.6 % Eos % (Auto) 4.1 % Baso % (Auto) 0.4 % Neut # (Auto) 5.68 (1.4-6.5) K/uL Lymph # (Auto) 0.65 L (1.2-3.4) K/uL [place] # (Auto) 0.63 H (0.11-0.59) K/uL Eos # (Auto) 0.30 (0-0.5) K/uL Baso # (Auto) 0.03 (0-0.2) K/uL Immature Gran # (Auto) 0.06 H (0.00-0.02) K/uL PT 10.8 (9.0-12.0) Seconds INR 1.1 (0.9-1.1) APTT 21.6 (21.0-31.0) Seconds PTT Ratio 0.8 Sodium 133 L (136-145) mmol/L Potassium (3.5-5.1) mmol/L Chloride 98 (98-107) mmol/L Carbon Dioxide 27 (21-32) mmol/L Anion Gap 9.0 (3-11) BUN 29 H (7-18) mg/dl Creatinine 1.15 (0.6-1.4) mg/dl Est Cr Clr Drug Dosing Not Reportable Est GFR ( Amer) 68.3 ml/min Est GFR (Non-Af Amer) 58.9 ml/min BUN/Creatinine Ratio 25.0 H (10-20) Glucose 125 H (70-99) mg/dl Lactate (0.4-2.0) mmol/L Calcium 9.8 (8.5-10.1) mg/dl Magnesium (1.8-2.4) mg/dl Total Bilirubin 0.6 (0.2-1) mg/dl AST (15-37) U/L ALT 28 (12-78) U/L Alkaline Phosphatase 83 (45-117) U/L Troponin I < 0.015 (0-0.045) ng/ml Total Protein 7.5 (6.4-8.2) gm/dl Albumin 2.5 L (3.4-5.0) gm/dl Globulin 5.0 H (2.5-4.0) gm/dl Albumin/Globulin Ratio 0.5 L (0.9-2) Procalcitonin Urine Color Urine Appearance (Clear) Urine pH (4.5-7.5) Ur Specific [place] (1.000-1.030) Urine Protein (Negative) Urine Glucose (UA) (Negative) Urine Ketones (Negative) Urine Blood (Negative) Urine Nitrite (Negative) Urine Bilirubin (Negative) Urine Urobilinogen (Negative) Ur Leukocyte Esterase (Negative) COVID-19 Eval Order SARS-CoV-2 (PCR) (Negative) 07/16/21 07/16/21 07/16/21 Range/Units 11:33 12:07 12:28 WBC (4.8-10.8) K/uL RBC (4.7-6.1) M/uL Hgb (14.0-18.0) g/dL Hct (42-52) % MCV (80-100) fL MCH (25-34) pg MCHC (32-36) g/dL RDW Std Deviation (36.4-46.3) fL RDW Coeff of Caren (11.5-14.5) % Plt Count (130-400) K/uL MPV (7.4-10.4) fL Immature Gran % (Auto) % Neut % (Auto) % Lymph % (Auto) % [place] % (Auto) % Eos % (Auto) % Baso % (Auto) % Neut # (Auto) (1.4-6.5) K/uL Lymph # (Auto) (1.2-3.4) K/uL [place] # (Auto) (0.11-0.59) K/uL Eos # (Auto) (0-0.5) K/uL Baso # (Auto) (0-0.2) K/uL Immature Gran # (Auto) (0.00-0.02) K/uL PT (9.0-12.0) Seconds INR (0.9-1.1) APTT (21.0-31.0) Seconds PTT Ratio Sodium (136-145) mmol/L Potassium (3.5-5.1) mmol/L Chloride (98-107) mmol/L Carbon Dioxide (21-32) mmol/L Anion Gap (3-11) BUN (7-18) mg/dl Creatinine (0.6-1.4) mg/dl Est Cr Clr Drug Dosing Est GFR ( Amer) ml/min Est GFR (Non-Af Amer) ml/min BUN/Creatinine Ratio (10-20) Glucose (70-99) mg/dl Lactate 2.3 H* (0.4-2.0) mmol/L Calcium (8.5-10.1) mg/dl Magnesium (1.8-2.4) mg/dl Total Bilirubin (0.2-1) mg/dl AST (15-37) U/L ALT (12-78) U/L Alkaline Phosphatase (45-117) U/L Troponin I (0-0.045) ng/ml Total Protein (6.4-8.2) gm/dl Albumin (3.4-5.0) gm/dl Globulin (2.5-4.0) gm/dl Albumin/Globulin Ratio (0.9-2) Procalcitonin Cancelled Urine Color Urine Appearance (Clear) Urine pH (4.5-7.5) Ur Specific [place] (1.000-1.030) Urine Protein (Negative) Urine Glucose (UA) (Negative) Urine Ketones (Negative) Urine Blood (Negative) Urine Nitrite (Negative) Urine Bilirubin (Negative) Urine Urobilinogen (Negative) Ur Leukocyte Esterase (Negative) COVID-19 Eval Order Covid19 at [facility] SARS-CoV-2 (PCR) (Negative) 07/16/21 07/16/21 07/16/21 Range/Units 12:28 12:34 12:34 WBC (4.8-10.8) K/uL RBC (4.7-6.1) M/uL Hgb (14.0-18.0) g/dL Hct (42-52) % MCV (80-100) fL MCH (25-34) pg MCHC (32-36) g/dL RDW Std Deviation (36.4-46.3) fL RDW Coeff of Caren (11.5-14.5) % Plt Count (130-400) K/uL MPV (7.4-10.4) fL Immature Gran % (Auto) % Neut % (Auto) % Lymph % (Auto) % [place] % (Auto) % Eos % (Auto) % Baso % (Auto) % Neut # (Auto) (1.4-6.5) K/uL Lymph # (Auto) (1.2-3.4) K/uL [place] # (Auto) (0.11-0.59) K/uL Eos # (Auto) (0-0.5) K/uL Baso # (Auto) (0-0.2) K/uL Immature Gran # (Auto) (0.00-0.02) K/uL PT (9.0-12.0) Seconds INR (0.9-1.1) APTT (21.0-31.0) Seconds PTT Ratio Sodium (136-145) mmol/L Potassium 4.1 (3.5-5.1) mmol/L Chloride (98-107) mmol/L Carbon Dioxide (21-32) mmol/L Anion Gap (3-11) BUN (7-18) mg/dl Creatinine (0.6-1.4) mg/dl Est Cr Clr Drug Dosing Est GFR ( Amer) ml/min Est GFR (Non-Af Amer) ml/min BUN/Creatinine Ratio (10-20) Glucose (70-99) mg/dl Lactate (0.4-2.0) mmol/L Calcium (8.5-10.1) mg/dl Magnesium 1.4 L (1.8-2.4) mg/dl Total Bilirubin (0.2-1) mg/dl AST 16 (15-37) U/L ALT (12-78) U/L Alkaline Phosphatase (45-117) U/L Troponin I (0-0.045) ng/ml Total Protein (6.4-8.2) gm/dl Albumin (3.4-5.0) gm/dl Globulin (2.5-4.0) gm/dl Albumin/Globulin Ratio (0.9-2) Procalcitonin 0.20 Urine Color Urine Appearance (Clear) Urine pH (4.5-7.5) Ur Specific [place] (1.000-1.030) Urine Protein (Negative) Urine Glucose (UA) (Negative) Urine Ketones (Negative) Urine Blood (Negative) Urine Nitrite (Negative) Urine Bilirubin (Negative) Urine Urobilinogen (Negative) Ur Leukocyte Esterase (Negative) COVID-19 Eval Order SARS-CoV-2 (PCR) NEGATIVE (Negative) 07/16/21 07/16/21 Range/Units 13:05 14:59 WBC (4.8-10.8) K/uL RBC (4.7-6.1) M/uL Hgb (14.0-18.0) g/dL Hct (42-52) % MCV (80-100) fL MCH (25-34) pg MCHC (32-36) g/dL RDW Std Deviation (36.4-46.3) fL RDW Coeff of Caren (11.5-14.5) % Plt Count (130-400) K/uL MPV (7.4-10.4) fL Immature Gran % (Auto) % Neut % (Auto) % Lymph % (Auto) % [place] % (Auto) % Eos % (Auto) % Baso % (Auto) % Neut # (Auto) (1.4-6.5) K/uL Lymph # (Auto) (1.2-3.4) K/uL [place] # (Auto) (0.11-0.59) K/uL Eos # (Auto) (0-0.5) K/uL Baso # (Auto) (0-0.2) K/uL Immature Gran # (Auto) (0.00-0.02) K/uL PT (9.0-12.0) Seconds INR (0.9-1.1) APTT (21.0-31.0) Seconds PTT Ratio Sodium (136-145) mmol/L Potassium (3.5-5.1) mmol/L Chloride (98-107) mmol/L Carbon Dioxide (21-32) mmol/L Anion Gap (3-11) BUN (7-18) mg/dl Creatinine (0.6-1.4) mg/dl Est Cr Clr Drug Dosing Est GFR ( Amer) ml/min Est GFR (Non-Af Amer) ml/min BUN/Creatinine Ratio (10-20) Glucose (70-99) mg/dl Lactate 1.7 (0.4-2.0) mmol/L Calcium (8.5-10.1) mg/dl Magnesium (1.8-2.4) mg/dl Total Bilirubin (0.2-1) mg/dl AST (15-37) U/L ALT (12-78) U/L Alkaline Phosphatase (45-117) U/L Troponin I (0-0.045) ng/ml Total Protein (6.4-8.2) gm/dl Albumin (3.4-5.0) gm/dl Globulin (2.5-4.0) gm/dl Albumin/Globulin Ratio (0.9-2) Procalcitonin Urine Color Dark Yellow Urine Appearance Clear (Clear) Urine pH 6.5 (4.5-7.5) Ur Specific [place] 1.011 (1.000-1.030) Urine Protein Negative (Negative) Urine Glucose (UA) Negative (Negative) Urine Ketones Negative (Negative) Urine Blood Negative (Negative) Urine Nitrite Negative (Negative) Urine Bilirubin Negative (Negative) Urine Urobilinogen Negative (Negative) Ur Leukocyte Esterase Negative (Negative) COVID-19 Eval Order SARS-CoV-2 (PCR) (Negative) Administered Medications Vancomycin HCl 2,250 mg/ (Sodium Chloride) 545 mls @ 200 mls/hr IV NOW STA; Protocol Stop: 07/16/21 18:51 Last Admin: 07/16/21 17:07 Dose: 200 mls/hr Documented by: [id number] Discontinued Medications Sodium Chloride (Nss 1000ml) 1,000 mls @ 999 mls/hr IV .[id number] ONE Stop: 07/16/21 12:49 Last Infusion: 07/16/21 15:04 Dose: 0 mls/hr Documented by: [id number] Admin: 07/16/21 13:49 Dose: 999 mls/hr Documented by: [id number] Ceftriaxone Sodium (Rocephin) 1,000 mg in 50 mls @ 100 mls/hr IV NOW STA Stop: 07/16/21 12:18 Last Infusion: 07/16/21 15:04 Dose: 0 mls/hr Documented by: [id number] Admin: 07/16/21 13:48 Dose: 100 mls/hr Documented by: [id number] Imaging Data Radiologist's Impression: Chest X-Ray 07/16/21 11:49 XR chest 1V portable CLINICAL HISTORY: SEPSIS COMPARISON STUDY: Chest radiograph and right rib series July 08, 2021. FINDINGS: No pneumothorax or pleural effusion is noted. Cardiomegaly is unchanged. Interstitial thickening has developed. There is mild left lower lung opacity. IMPRESSION: 1. Interval development of mild interstitial thickening. This may reflect pulmonary vascular congestion or an infectious process. 2. Stable cardiomegaly. ACT 112: Negative or not required by law. Electronically signed by: Pedro Pablo Bonds M.D. 07/16/2021 12:[address] 07/16/21 15:44 CT chest diagnostic wo con CT DOSE: 638.55 mGy.cm HISTORY: R rib pain, hypoxia TECHNIQUE: Multiaxial CT images of the chest were performed without contrast. A dose lowering technique was utilized adhering to the principles of ALARA. COMPARISON: Chest 07/16/2021. FINDINGS: There is an old mild anterior wedge-shaped compression deformity at T1 2, unchanged. Fusion of the majority of the thoracic spine vertebral bodies, facets, and spinous process tips. This raises the possibility of ankylosing spondylitis. No acute rib fractures identified. Limited views of the upper abdomen demonstrate a normal liver, spleen, and adrenal glands. Prior ch olecystectomy. Normal esophagus. No pleural or pericardial effusions. The heart is mildly enlarged. Normal caliber thoracic aorta. Moderate coronary artery calcifications are noted. There is mild respiratory motion artifact. There are few scattered mildly enlarged mediastinal lymph nodes within the left superior mediastinum, AP window, and subcarinal locations. Dominant subcarinal lymph node measures 3.3 x 1.9 cm. There are also a few mildly enlarged hilar lymph nodes measuring up to 1 cm in short axis diameter. No pneumothorax. There is mild central bronchial wall thickening most pronounced within the left lower lobe. Suboptimal evaluation of the lungs due to the mild respiratory motion artifact. Bibasilar densities, left greater than right, favor subsegmental atelectasis. Otherwise, no focal lung consolidations to suggest pneumonia. No evidence for pulmonary edema. IMPRESSION: 1. No acute rib fractures. No pneumothorax. 2. Bibasilar linear densities consistent with subsegmental atelectasis. 3. Mild mediastinal and bilateral hilar lymphadenopathy. This is nonspecific. Consider six-month chest CT follow-up to ensure to exclude the possibility of a lymphoproliferative disorder. 4. Fusion of the majority of the thoracic spine vertebral bodies, facets, and spinous process tips. This raises the possibility of ankylosing spondylitis. ACT 112: Negative or not required by law. Electronically signed by: Mitchell Hargrove M.D. 07/16/2021 4:50 PM Discharge Plan Visit Data Chief Complaint: Weakness Stated Complaint: REFERRED BY FOR TESTS TO BE DONE ED Provider: Jonathan Munoz Discharge Problem: Cellulitis, Elevated lactic acid level, Tachycardia Forms Stand Alone Forms: [facility] Prescriptions: No Action doxycycline hyclate 100 mg capsule 100 mg PO BID Qty: 28 RF: 0 hydroxychloroquine 200 mg tablet 200 mg PO DAILY RF: 0 rifampin 300 mg capsule 300 mg PO BID RF: 0 aspirin [Adult Low Dose Aspirin] 81 mg tablet,delayed release (DR/EC) 81 mg PO QPM RF: 0 amlodipine 10 mg tablet 10 mg PO QAM Qty: 90 RF: 1 oxybutynin chloride 10 mg tablet extended release 24hr 10 mg PO QPM Qty: 90 RF: 1 metformin 1,000 mg tablet 1,000 mg PO BID Qty: 180 RF: 1 potassium chloride 20 mEq tablet extended release 20 meq PO DAILY Qty: 90 RF: 1 losartan 100 mg tablet 100 mg PO QPM Qty: 90 RF: 1 gabapentin 300 mg capsule 300 mg PO TID Qty: 90 RF: 5 simvastatin 20 mg tablet 20 mg PO QPM Qty: 90 RF: 1 finasteride [Proscar] 5 mg tablet 5 mg PO QAM Qty: 90 RF: 3 prednisone 10 mg tablet 10 mg PO QAM RF: 0 [id number]-khuquetq-swpzcs Tablet 1 tab PO QAM RF: 0 docusate sodium [Stool Softener] 100 mg Capsule 100 mg PO Q OTHER DAY PRN (Reason: Constipation) RF: 0 acetaminophen [Tylenol Extra Strength] 500 mg Tablet 1,000 mg PO Q6H PRN (Reason: Pain) RF: 0 alfuzosin [Uroxatral] 10 mg tablet extended release 24 hr 10 mg PO DAILY RF: 0 Referrals Referrals: Ana Lindo DO [Primary Care Provider] - Discharge Problem: Cellulitis Qualifiers: Site of cellulitis: unspecified site Qualified Code(s): L03.90 - Cellulitis, unspecified
[2021-07-16 12:04] LABS: Basophils # (auto) 0.03 K/uL (0-0.2); Basophils % (auto) 0.4 %; Eosinophils % (auto) 4.1 %; Hematocrit (blood only) 35.1 % (42-52); Hemoglobin 11.3 g/dL (14.0-18.0); Immature Granulocytes # (auto) 0.06 K/uL (0.00-0.02); Immature Granulocytes % (auto) 0.8 %; Lymphocytes # (auto) 0.65 K/uL (1.2-3.4); Lymphocytes % (auto) 8.8 %; Mean Corpuscular Hemoglobin 27.6 pg (25-34); Mean Corpuscular Hgb Conc 32.2 g/dL (32-36); Mean Corpuscular Volume 85.8 fL (80-100); Mean Platelet Volume 10.1 fL (7.4-10.4); Monocytes # (auto) 0.63 K/uL (0.11-0.59); Monocytes % (auto) 8.6 %; Neutrophils # (auto) 5.68 K/uL (1.4-6.5); Neutrophils % (auto) 77.3 %; Platelet Count 259 K/uL (130-400); RDW Coefficient of Variation 16.1 % (11.5-14.5); RDW Standard Deviation 50.2 fL (36.4-46.3); Red Blood Count 4.09 M/uL (4.7-6.1); White Blood Count 7.35 K/uL (4.8-10.8)
--- NOTE | 2021-07-16 12:11 | XRay Report ---
XR chest 1V portable CLINICAL HISTORY: SEPSIS COMPARISON STUDY: Chest radiograph and right rib series July 08, 2021. FINDINGS: No pneumothorax or pleural effusion is noted. Cardiomegaly is unchanged. Interstitial thick ening has developed. There is mild left lower lung opacity. IMPRESSION: 1. Interval development of mild interstitial thickening. This may reflect pulmonary vascular congesti on or an infectious process. 2. Stable cardiomegaly. ACT 112: Negative or not required by law. Electronically signed by: Pedro Pablo Bonds M.D. 07/16/2021 12:09 PM
[2021-07-16 12:14] LABS: INR 1.1 (0.9-1.1); Partial Thromboplastin Ratio 0.8; Partial Thromboplastin Time 21.6 Seconds (21.0-31.0); Prothrombin Time 10.8 Seconds (9.0-12.0)
[2021-07-16 12:34] LABS: Alanine Aminotransferase 28 U/L (12-78); Albumin Globulin Ratio 0.5 (0.9-2); Albumin Level 2.5 gm/dl (3.4-5.0); Alkaline Phosphatase 83 U/L (45-117); Bilirubin,Total 0.6 mg/dl (0.2-1); Blood Urea Nitrogen 29 mg/dl (7-18); Calcium 9.8 mg/dl (8.5-10.1); Carbon Dioxide 27 mmol/L (21-32); Chloride 98 mmol/L (98-107); Est GFR (African American) 68.3 ml/min; Est GFR (Non-African American) 58.9 ml/min; Glucose 125 mg/dl (70-99); Sodium 133 mmol/L (136-145); Total Protein 7.5 gm/dl (6.4-8.2); Troponin I < 0.015 ng/ml (0-0.045)
[2021-07-16 12:58] LABS: Potassium 4.1 mmol/L (3.5-5.1)
[2021-07-16 13:03] LABS: Magnesium 1.4 mg/dl (1.8-2.4)
[2021-07-16 13:45] LABS: Appearance Urine Clear (Clear); Bilirubin Urine Negative (Negative); Blood Urine Negative (Negative); Color Urine Dark Yellow; Glucose Urine UA Negative (Negative); Ketones Urine Negative (Negative); Leukocyte Esterase Urine Negative (Negative); Nitrite Urine Negative (Negative); Protein Urine Negative (Negative); Specific Gravity Urine 1.011 (1.000-1.030); Urobilinogen Urine Negative (Negative); pH Urine 6.5 (4.5-7.5)
--- NOTE | 2021-07-16 15:22 | History & Physical Report ---
Date of Service July 16, 2021 Assessment & Plan (1) Rib pain on right side: Plan: Patient is status post fall, has some soreness on the right side. Chest x-ray did not reveal fracture. Will check noncontrast CT to confirm no fracture Okay to use warm compresses and Lidoderm patches Can try tramadol 50 mg every 6 hours for pain PT/OT for ambulation (2) Cellulitis: Plan: Lower extremity cellulitis, has been on oral doxycycline at home without much improvement will start IV vancomycin and monitor for response Patient is known to the wound center, will consult them for further management (3) Diabetes with neurologic complications: Plan: Continue Metformin We will order sliding scale insulin along with diabetic diet Hemoglobin A 1C (4) Hypertension: Plan: Continue medications for blood pressure (5) Hyperlipidemia: Plan: Continue simvastatin or pharmacy equivalent (6) Psoriatic arthropathy: Plan: Patient is on hydroxy clear plan along with prednisone 10 mg daily, will continue these as well History of Present Illness Chief Complaint: Generalized weakness Primary Care Provider: Ana Lindo, This is an 80-year-old male with past medical history of diabetes with neuropathy, arthritis, hypertension, and hyperlipidemia that presents today with generalized weakness as well as several other complaints. Patient is in the room with his . Patient was seen here on 07/08 after a fall in his kitchen. He struck his right side. There was significant pain in this area. Work-up in the ER included an x-ray which was negative for fracture. Patient was given some Lidoderm patches and discharged home. He says the patches worked but not great and was using some Tylenol along with this. Over the next 2 days, patient noticed worsening generalized weakness and fatigue. He was unsteady on his feet but did not fall again. His also noticed increasing redness in his left lower extremity when compared to the right. He does have chronic ulcerations there and follows with wound care but the erythema and drainage is new. Patient had some chills but no overt fevers. However, considering his weakness he presented to the emergency room for further evaluation. In the ER, he was noticed to be slightly hypoxic with a room air pulse ox of 88% initially. During my evaluation he was 93% on room air. He had been afebrile. He denies any fevers but does admit to some chills. Allergies Allergy/AdvReac Type Severity Reaction Status Date / Time amoxicillin Allergy Mild lip Verified 07/16/21 12:33 swelling clavulanic acid Allergy Mild lip Verified 07/16/21 12:33 swelling VINCE Inhibitors Allergy Unknown UNKNOWN-PT Verified 07/16/21 12:33 NOT AWARE clarithromycin Allergy Unknown UNKNOWN-PT Verified 07/16/21 12:33 NOT AWARE Sulfa (Sulfonamide Allergy Unknown LIP Verified 07/16/21 12:33 Antibiotics) SWELLING WITH SULFA DRUGS Home Medications Medication Instructions Recorded Confirmed Type aspirin 81 mg tablet,delayed 81 mg PO QPM 06/29/18 07/16/21 History release (Adult Low Dose Aspirin) docusate sodium 100 mg capsule 100 mg PO Q OTHER DAY PRN 09/13/19 07/16/21 History (Stool Softener) nnocpuymisai-zzkebapp-jnkjnb tablet 1 tab PO QAM 09/05/20 07/16/21 History amlodipine 10 mg tablet 10 mg PO QAM #90 tab 12/17/20 07/16/21 Rx oxybutynin chloride 10 mg 10 mg PO QPM #90 tab 12/17/20 07/16/21 Rx tablet,extended release 24 hr finasteride 5 mg tablet (Proscar) 5 mg PO QAM #90 tab 01/13/21 07/16/21 Rx metformin 1,000 mg tablet 1,000 mg PO BID #180 tab 04/18/21 07/16/21 Rx acetaminophen 500 mg tablet 1,000 mg PO Q6H PRN 05/03/21 07/16/21 History (Tylenol Extra Strength) alfuzosin 10 mg tablet,extended 10 mg PO DAILY 05/03/21 07/16/21 History release 24 hr (Uroxatral) prednisone 10 mg tablet 10 mg PO QAM 05/15/21 07/16/21 History potassium chloride 20 mEq 20 meq PO DAILY #90 tab 05/28/21 07/16/21 Rx tablet,extended release losartan 100 mg tablet 100 mg PO QPM #90 tab 06/24/21 07/16/21 Rx doxycycline hyclate 100 mg capsule 100 mg PO BID #28 cap 06/25/21 07/16/21 Rx hydroxychloroquine 200 mg tablet 200 mg PO DAILY 07/02/21 07/16/21 History rifampin 300 mg capsule 300 mg PO BID cap 07/02/21 07/16/21 History gabapentin 300 mg capsule 300 mg PO TID #90 cap 07/03/21 07/16/21 Rx simvastatin 20 mg tablet 20 mg PO QPM #90 tab 07/09/21 07/16/21 Rx Past Med/Surg History Medical History BPH with obstruction/lower urinary tract symptoms Chronic anemia Chronic back pain Chronic steroid use RA Depression Diabetes mellitus, type 2 NIDDM - controlled 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 Per record review they were unable to intubate on 3 attempts. Fast track LMA were unsuccessful. Were able to mask vent with 2 people. Intubated with nasal fiberoptic. 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) S/P arthroscopy of shoulder (01/2016) Left S/P hammer toe correction (11/2013) arthrodesis R toe S/P laminectomy (04/25/20) S/P laparoscopic cholecystectomy (07/2018) S/P left knee arthroscopy (10/2015) Status post carpal tunnel release of both wrists Family History Mother Cardiac disorder Myocardial infarction Other No family history of adverse response to anesthesia Denies family history of Ovarian cancer Prostate cancer Breast cancer Colorectal cancer Social History Smoking Status: Former smoker Tobacco Type: Cigarettes Cigarettes Per Day: 40 (2ppd); Number of Years Since Quit: 40; Second Hand Exposure: No; Hx Alcohol Use: No Hx Substance Use: No Preferred Language: Lao Communication Ability: Effective Visual Impairment: No Limitations Hearing Ability: Normal Loose Hand Packer Required: No Beliefs That Will Affect Care: None marital status: Current Living Situation: Spouse current occupational status: retired How many Children do You have: 4 How many Children do You have Comment: and one son are local and able to assist with care as needed. Other children live further away. Feels Safe at Home: Yes caffeine: Yes during the past year weight has: increased > 10 lbs Dental Care, Regularly: Yes Physical Activity Frequency: Daily Seatbelt Use: always Sunscreen Use: Yes Assistive Devices: Walker Review of Systems Constitutional: + chills, + fatigue and + weakness; no fever, no weight loss and no weight gain Eyes: as per Subjective / HPI Respiratory: no cough, no chest congestion, no dyspnea and no dyspnea on exertion Cardiovascular: no chest pain, no orthopnea, no palpitations, no lightheadedness and no edema Gastrointestinal: no abdominal pain, no nausea, no vomiting, no constipation and no diarrhea/loose stools Musculoskeletal: no back pain, no neck pain, no joint pain, no stiffness and no myalgia Integumentary: no rash Neurologic: + unsteadiness and + generalized weakness; no gait abnormality and no falls Physical Exam Constitutional: cooperative; no acute distress Neck: trachea midline, no thyromegaly Respiratory: normal respiratory effort Auscultation: lungs clear to auscultation bilaterally and + rales (faint at L base); no crackles, no rhonchi and no wheezes Cardiovascular: Rate/Rhythm: regular rate and regular rhythm Heart Sounds: normal S1 and normal S2 Gastrointestinal (Abdomen): Inspection/Auscultation: abdomen normal to inspection Percussion/Palpation: abdomen soft; abdomen nontender, no guarding, abdomen not rigid and no hepatosplenomegaly Musculoskeletal: b/l venous stasis. extensive LLE erythema, small area of drainage that is covered in tape Skin: no rashes, warm and dry Results & Data Results & Data ([facility]) Vital Signs (Past 12 Hours) Vital Signs Temp Pulse Resp BP Pulse Ox 07/16/21 13:30 21 93 07/16/21 13:00 93 07/16/21 12:36 21 07/16/21 11:23 81 22 134/73 91 07/16/21 09:50 36.6 C 90 18 100/62 92 Laboratory Results Laboratory Results WBC 7.35 K/uL (4.8-10.8) 07/16/21 11:33 RBC 4.09 M/uL (4.7-6.1) L 07/16/21 11:33 Hgb 11.3 g/dL (14.0-18.0) L 07/16/21 11:33 Hct 35.1 % (42-52) L 07/16/21 11:33 MCV 85.8 fL (80-100) 07/16/21 11:33 MCH 27.6 pg (25-34) 07/16/21 11:33 MCHC 32.2 g/dL (32-36) 07/16/21 11:33 RDW Std Deviation 50.2 fL (36.4-46.3) H 07/16/21 11:33 RDW Coeff of Caren 16.1 % (11.5-14.5) H 07/16/21 11:33 Plt Count 259 K/uL (130-400) 07/16/21 11:33 MPV 10.1 fL (7.4-10.4) 07/16/21 11:33 Immature Gran % (Auto) 0.8 % 07/16/21 11:33 Neut % (Auto) 77.3 % 07/16/21 11:33 Lymph % (Auto) 8.8 % 07/16/21 11:33 [place] % (Auto) 8.6 % 07/16/21 11:33 Eos % (Auto) 4.1 % 07/16/21 11:33 Baso % (Auto) 0.4 % 07/16/21 11:33 Neut # (Auto) 5.68 K/uL (1.4-6.5) 07/16/21 11:33 Lymph # (Auto) 0.65 K/uL (1.2-3.4) L 07/16/21 11:33 [place] # (Auto) 0.63 K/uL (0.11-0.59) H 07/16/21 11:33 Eos # (Auto) 0.30 K/uL (0-0.5) 07/16/21 11:33 Baso # (Auto) 0.03 K/uL (0-0.2) 07/16/21 11:33 Immature Gran # (Auto) 0.06 K/uL (0.00-0.02) H 07/16/21 11:33 PT 10.8 Seconds (9.0-12.0) 07/16/21 11:33 INR 1.1 (0.9-1.1) 07/16/21 11:33 APTT 21.6 Seconds (21.0-31.0) 07/16/21 11:33 PTT Ratio 0.8 07/16/21 11:33 Sodium 133 mmol/L (136-145) L 07/16/21 11:33 Potassium 4.1 mmol/L (3.5-5.1) 07/16/21 12:34 Chloride 98 mmol/L (98-107) 07/16/21 11:33 Carbon Dioxide 27 mmol/L (21-32) 07/16/21 11:33 Anion Gap 9.0 (3-11) 07/16/21 11:33 BUN 29 mg/dl (7-18) H 07/16/21 11:33 Creatinine 1.15 mg/dl (0.6-1.4) 07/16/21 11:33 Est Cr Clr Drug Dosing Not Reportable 07/16/21 11:33 Est GFR ( Amer) 68.3 ml/min 07/16/21 11:33 Est GFR (Non-Af Amer) 58.9 ml/min 07/16/21 11:33 BUN/Creatinine Ratio 25.0 (10-20) H 07/16/21 11:33 Glucose 125 mg/dl (70-99) H 07/16/21 11:33 Lactate 2.3 mmol/L (0.4-2.0) H* 07/16/21 12:07 Calcium 9.8 mg/dl (8.5-10.1) 07/16/21 11:33 Magnesium 1.4 mg/dl (1.8-2.4) L 07/16/21 12:34 Total Bilirubin 0.6 mg/dl (0.2-1) 07/16/21 11:33 AST 16 U/L (15-37) 07/16/21 12:34 ALT 28 U/L (12-78) 07/16/21 11:33 Alkaline Phosphatase 83 U/L (45-117) 07/16/21 11:33 Troponin I < 0.015 ng/ml (0-0.045) 07/16/21 11:33 Total Protein 7.5 gm/dl (6.4-8.2) 07/16/21 11:33 Albumin 2.5 gm/dl (3.4-5.0) L 07/16/21 11:33 Globulin 5.0 gm/dl (2.5-4.0) H 07/16/21 11:33 Albumin/Globulin Ratio 0.5 (0.9-2) L 07/16/21 11:33 Procalcitonin 0.20 ng/ml (0-0.5) 07/16/21 12:34 Urine Color Dark Yellow 07/16/21 13:05 Urine Appearance Clear (Clear) 07/16/21 13:05 Urine pH 6.5 (4.5-7.5) 07/16/21 13:05 Ur Specific [place] 1.011 (1.000-1.030) 07/16/21 13:05 Urine Protein Negative (Negative) 07/16/21 13:05 Urine Glucose (UA) Negative (Negative) 07/16/21 13:05 Urine Ketones Negative (Negative) 07/16/21 13:05 Urine Blood Negative (Negative) 07/16/21 13:05 Urine Nitrite Negative (Negative) 07/16/21 13:05 Urine Bilirubin Negative (Negative) 07/16/21 13:05 Urine Urobilinogen Negative (Negative) 07/16/21 13:05 Ur Leukocyte Esterase Negative (Negative) 07/16/21 13:05 COVID-19 Eval Order Covid19 at [facility] 07/16/21 12:28 SARS-CoV-2 (PCR) NEGATIVE (Negative) 07/16/21 12:28 Impressions Chest X-Ray 07/16/21 11:49 XR chest 1V portable CLINICAL HISTORY: SEPSIS COMPARISON STUDY: Chest radiograph and right rib series July 08, 2021. FINDINGS: No pneumothorax or pleural effusion is noted. Cardiomegaly is unchanged. Interstitial thickening has developed. There is mild left lower lung opacity. IMPRESSION: 1. Interval development of mild interstitial thickening. This may reflect pulmonary vascular congestion or an infectious process. 2. Stable cardiomegaly. ACT 112: Negative or not required by law. Electronically signed by: Pedro Pablo Bonds M.D. 07/16/2021 12:09 PM PG Care Time/CCT Total # of Minutes Spent Total Time Spent with Patient: Total time spent is greater than 50% in coordination of care (as documented) at patient's floor/unit and/or counseling patient: Coding Level of Care Code INT OBSERVATION CARE 70M LVL 3 Diagnoses Rib pain on right side R07.81 Cellulitis L03.90 Diabetes with neurologic complications E11.49 Hypertension I10 Hyperlipidemia E78.5 Psoriatic arthropathy L40.50
--- NOTE | 2021-07-16 15:38 | Electrocardiogram Report ---
Test Reason : Blood Pressure : / mmHG Vent. Rate : 080 BPM Atrial Rate : 080 BPM P-R Int : 148 ms QRS Dur : 084 ms QT Int : 362 ms P-R-T Axes : 072 -18 007 degrees QTc Int : 417 ms Sinus rhythm with occasional Premature ventricular complexes Inferior infarct , age undetermined Abnormal ECG When compared with ECG of 22-JUL-2018 09:30, Premature ventricular complexes are now Present Confirmed by Hema Cabezas ([id number]) on 07/16/2021 3:38:28 PM Referred By: Ana Lindo Confirmed By:Hema Cabezas
[2021-07-16] MEDS ORDERED: VANCOMYCIN CONSULT ACTIVE PRN (15:48)
[2021-07-16] MEDS ORDERED: VANCOMYCIN HCL 1,000 MG in SODIUM CHLORIDE 0.9% 250 ML IV SCH (16:00)
[2021-07-16] MEDS ORDERED: VANCOMYCIN HCL 2,250 MG in SODIUM CHLORIDE 0.9% 500 ML IV STA (16:08)
--- NOTE | 2021-07-16 16:51 | CT Scan Report ---
CT chest diagnostic wo con CT DOSE: 638.55 mGy.cm HISTORY: R rib pain, hypoxia TECHNIQUE: Multiaxial CT images of the chest were performed without contrast. A dose lowering techni que was utilized adhering to the principles of ALARA. COMPARISON: Chest 07/16/2021. FINDINGS: There is an old mild anterior wedge-shaped compression deformity at T12, unchanged. Fusion of the majority of the thoracic spine vertebral bodies, facets, and spinous process tips. This raises the possibility of ankylosing spondylitis. No acute rib fractures identified. Limited views of the u pper abdomen demonstrate a normal liver, spleen, and adrenal glands. Prior cholecystectomy. Normal es ophagus. No pleural or pericardial effusions. The heart is mildly enlarged. Normal caliber thoracic a adam. Moderate coronary artery calcifications are noted. There is mild respiratory motion artifact. T here are few scattered mildly enlarged mediastinal lymph nodes within the left superior mediastinum, AP window, and subcarinal locations. Dominant subcarinal lymph node measures 3.3 x 1.9 cm. There are also a few mildly enlarged hilar lymph nodes measuring up to 1 cm in short axis diameter. No pneumoth orax. There is mild central bronchial wall thickening most pronounced within the left lower lobe. Sub optimal evaluation of the lungs due to the mild respiratory motion artifact. Bibasilar densities, lef t greater than right, favor subsegmental atelectasis. Otherwise, no focal lung consolidations to sugg est pneumonia. No evidence for pulmonary edema. IMPRESSION: 1. No acute rib fractures. No pneumothorax. 2. Bibasilar linear densities consistent with subsegmental atelectasis. 3. Mild mediastinal and bilateral hilar lymphadenopathy. This is nonspecific. Consider six-month ches t CT follow-up to ensure to exclude the possibility of a lymphoproliferative disorder. 4. Fusion of the majority of the thoracic spine vertebral bodies, facets, and spinous process tips. T his raises the possibility of ankylosing spondylitis. ACT 112: Negative or not required by law. Electronically signed by: Mitchell Hargrove M.D. 07/16/2021 4:50 PM
[2021-07-16] MEDS ORDERED: GLUCAGON FOR INJ 1 MG VIAL SQ PRN (18:33)
[2021-07-16] MEDS ORDERED: GLUCOSE 40% GEL 15 GM TUBE PO PRN (18:33)
[2021-07-16] MEDS ORDERED: CARBOHYDRATES FOR HYPOGLYCEMIA PO PRN (18:33)
[2021-07-16] MEDS ORDERED: GLUCOSE 10 TABS/TUBE PO PRN (18:33)
[2021-07-16] MEDS ORDERED: ONDANSETRON INJ 2 MG/ML 2 ML VIAL IV PRN (18:33)
[2021-07-16] MEDS ORDERED: DEXTROSE 50% 50 ML SYRINGE IV PRN (18:33)
[2021-07-16] MEDS ORDERED: ACETAMINOPHEN 500 MG TAB PO PRN (18:46)
--- NOTE | 2021-07-16 19:38 | Pharmacy Report ---
Pharmacy Vanc AUC Short Note - Date of Service July 16, 2021 - Assessment & Plan Assessment 80 year old M receiving empiric vancomycin for treatment of LLE cellulitis. Patient was receiving PO doxycycline prior to admission without much improvement. Pertinent PMH includes diabetes mellitus and psoriatic arthopathy (on chronic prednisone and hydroxychloroquine). Day # 1 of antimicrobial therapy. Plan Vancomycin * AUC/STEVE is the preferred PK/PD target for vancomycin * AUC guided dosing is effective and associated with decreased risk of nephrotoxicity compared to traditional trough targets * Loading dose of vancomycin 2250 mg (~21 mg/kg) IV x 1 * Ordered maintenance dose of 1000 mg IV q18h expected to achieve target AUC/STEVE of 400-600 mg/L.hr and may be associated with a 9 % risk of nephrotoxicity * Trough level to be obtained once at steady state, or sooner if significant change in renal function Pharmacy will continue to follow and will adjust dose/frequency as necessary. Thank you.
[2021-07-16] MEDS: INSULIN ASPART 100 UNITS/ML 3 ML PEN SC SCH ×2 (19:47→21:46)
[2021-07-16] MEDS: GABAPENTIN 300 MG CAP PO SCH (19:52)
[2021-07-16] MEDS: ENOXAPARIN INJ 40 MG/0.4 ML SYR SQ SCH (19:52)
[2021-07-16] MEDS: ASPIRIN 81 MG ECTAB PO SCH (19:52)
[2021-07-16] MEDS: OXYBUTYNIN CHLORIDE XL 5 MG TABCR PO SCH (19:53)
[2021-07-16] MEDS: rifAMPin 300 MG CAPSULE PO SCH (19:54)
[2021-07-16] MEDS: LOSARTAN POTASSIUM 50 MG TAB PO SCH (19:54)
[2021-07-16] MEDS: SIMVASTATIN 20 MG TAB PO SCH (19:55)
[2021-07-16] MEDS ORDERED: metFORMIN HCL 500 MG TAB PO SCH (21:00)
[2021-07-17 05:51] LABS: Basophils # (auto) 0.03 K/uL (0-0.2); Basophils % (auto) 0.4 %; Eosinophils # (auto) 0.43 K/uL (0-0.5); Eosinophils % (auto) 6.3 %; Hematocrit (blood only) 33.8 % (42-52); Hemoglobin 10.9 g/dL (14.0-18.0); Immature Granulocytes # (auto) 0.05 K/uL (0.00-0.02); Immature Granulocytes % (auto) 0.7 %; Lymphocytes # (auto) 0.48 K/uL (1.2-3.4); Mean Corpuscular Hemoglobin 27.7 pg (25-34); Mean Corpuscular Hgb Conc 32.2 g/dL (32-36); Mean Platelet Volume 9.5 fL (7.4-10.4); Monocytes # (auto) 0.48 K/uL (0.11-0.59); Neutrophils # (auto) 5.34 K/uL (1.4-6.5); Neutrophils % (auto) 78.6 %; Platelet Count 255 K/uL (130-400); RDW Coefficient of Variation 15.8 % (11.5-14.5); RDW Standard Deviation 49.7 fL (36.4-46.3); Red Blood Count 3.93 M/uL (4.7-6.1); White Blood Count 6.81 K/uL (4.8-10.8)
[2021-07-17 06:17] LABS: BUN Creatinine Ratio 22.4 (10-20); Calcium 8.7 mg/dl (8.5-10.1); Creatinine Clr Calc Pharmacy 75.3 ml/min; Est GFR (African American) 93.2 ml/min; Est GFR (Non-African American) 80.4 ml/min; Potassium 4.1 mmol/L (3.5-5.1)
[2021-07-17] MEDS: GABAPENTIN 300 MG CAP PO SCH ×3 (07:42→20:10)
[2021-07-17] MEDS: rifAMPin 300 MG CAPSULE PO SCH ×2 (07:42→20:11)
[2021-07-17] MEDS: CEROVITE ADV FORMULA TAB PO SCH (07:42)
[2021-07-17] MEDS: FINASTERIDE 5 MG TAB PO SCH (07:42)
[2021-07-17] MEDS: amLODIPine BESYLATE 5 MG TAB PO SCH (07:43)
[2021-07-17] MEDS: predniSONE 10 MG TABLET PO SCH (07:43)
[2021-07-17] MEDS: POTASSIUM CHLORIDE CRTAB 20 MEQ TABCR PO SCH (07:43)
[2021-07-17] MEDS: HYDROXYCHLOROQUINE SULFATE 200 MG TAB PO SCH (07:43)
[2021-07-17] MEDS: ALFUZOSIN HCL 10 MG TAB PO SCH (07:43)
[2021-07-17] MEDS ORDERED: VANCOMYCIN HCL 1,000 MG in SODIUM CHLORIDE 0.9% 250 ML IV SCH (08:00)
[2021-07-17] MEDS: INSULIN ASPART 100 UNITS/ML 3 ML PEN SC SCH ×4 (08:50→20:14)
[2021-07-17] MEDS ORDERED: MICONAZOLE NITRATE POWDER 43 GM EXT PRN (08:54)
[2021-07-17] MEDS ORDERED: DOCUSATE SODIUM 100 MG CAP PO PRN (09:00)
[2021-07-17 10:11] LABS: Estimated Average Glucose 154 mg/dl
--- NOTE | 2021-07-17 15:29 | Hospitalist Progress Note ---
Date of Service July 17, 2021 Assessment & Plan (1) Rib pain on right side: Plan: CXR does not show evidence of fracture CT: No acute rib fractures. No pneumothorax. - Warm compresses and Lidoderm patches - Tramadol 50 mg every 6 hours for pain (2) Cellulitis: Plan: Left lower extremity with improving cellulitis, receding from marked lines of maximal expansion Patient had not improved on outpatient doxycycline therapy (although this was started for third left finger), currently improving on vancomycin. 1 dose of Rocephin given prior to admission Past wound culture positive for staph aureus sensitive to tetracyclines Patient with sulfa allergy (lip swelling) that precludes TMP/SMX. Prior staph aureus isolate resistant to clindamycin Continue vancomycin at this time Hx of osteomyelitis on chronic suppressive therapy with rifampin 300 mg p.o. twice daily, continue (3) Diabetes with neurologic complications: Plan: Home Metformin held - A1C 7.0% on admit Glucose checks AC/at bedtime Insulin SSI (4) Hypertension: Plan: Continue losartan 100 mg daily Continue amlodipine 10 mg daily (5) Hyperlipidemia: Plan: Continue simvastatin 20 mg nightly (6) Psoriatic arthropathy: Plan: Continue home prednisone 10 mg daily, hydroxychloroquine 200 mg p.o. daily Admission and Anticipated Discharge Date Admission Date: July 16, 2021 Josephine Constantino Majano "is seen at the bedside. He reports he feels 85% better and previous on admission, and thinks antibiotics are working. He reports that before he came to the hospital he just felt progressively weaker and more tired over the last week and had increased redness in his left leg. He reports he is seen wound care extensively, and has had wounds which have been healing over his left leg but that the increased redness was new. Reports it seems improved to him today. He denies fever, chills, sweats, shortness of breath, difficulty breathing this morning. Endorses some residual fatigue. Denies pain in his legs today. Review of Systems Review of Systems: All systems reviewed & are unremarkable except as noted in HPI & below Physical Exam Physical Exam: General: A&Ox3. NAD. Cooperative. HEENT: Atraumatic, normocephalic. Pulm: Trace crackles in the bases, otherwise CTAB A&P. -wheezes, -rales, - rhonchi. Symmetrical chest rise. No increase work of breathing. No respiratory distress. Cardiac: RRR, -mrg. Radial pulses intact and symmetrical. Abdominal: Nontender, nondistended, soft. BS present. Extremities: Upper extremity: Left third digit with dry scab overlying DIP without tenderness/exudate Left lower extremity: Chronic venous stasis changes at the anterior and distal portion of the left lower extremity, additional erythema expanding several centimeters from chronic venous stasis changes and 1 superficial healing ulcer/lesion without purulence or discharge on anterior harrison. Limits of erythema previously marked with surgical pen, currently erythema substantially receded by approximately 3-4 cm from this line. Left knee with 2X skin lesions without purulence. Right lower extremity: Chronic venous stasis changes without superimposed erythema/warmth/tenderness. PT pulse intact bilaterally, feet warm and dry without mottling Results & Data Results & Data ([facility]) Vital Signs (Past 12 Hours) Vital Signs Temp Pulse Resp BP Pulse Ox 07/17/21 11:10 37.3 C 79 20 106/63 93 07/17/21 07:53 37.9 C H 82 18 125/65 95 07/17/21 04:47 36.8 C 80 20 157/77 H 94 PG Care Time/CCT Total # of Minutes Spent Total Time Spent with Patient: Total time spent is greater than 50% in coordination of care (as documented) at patient's floor/unit and/or counseling patient: Coding Level of Care Code 52917 Subseq Hosp Care Lvl 2 Diagnoses Rib pain on right side R07.81 Cellulitis L03.90 Diabetes with neurologic complications E11.49 Hypertension I10 Hyperlipidemia E78.5 Psoriatic arthropathy L40.50
[2021-07-17] MEDS: ceFAZolin 2000MG 2,000 MG/15 ML SYR IV SCH ×2 (16:33→23:29)
[2021-07-17] MEDS: OXYBUTYNIN CHLORIDE XL 5 MG TABCR PO SCH (20:10)
[2021-07-17] MEDS: ASPIRIN 81 MG ECTAB PO SCH (20:10)
[2021-07-17] MEDS: ENOXAPARIN INJ 40 MG/0.4 ML SYR SQ SCH (20:10)
[2021-07-17] MEDS: LOSARTAN POTASSIUM 50 MG TAB PO SCH (20:11)
[2021-07-17] MEDS: SIMVASTATIN 20 MG TAB PO SCH (20:11)
[2021-07-17] MEDS ORDERED: MELATONIN 3 MG TAB PO PRN (23:12)
[2021-07-18] MEDS ORDERED: VANCOMYCIN HCL 1,500 MG in SODIUM CHLORIDE 0.9% 500 ML IV SCH
[2021-07-18] MEDS: traMADol HCL 50 MG TABLET PO PRN ×3 (04:06→20:39)
[2021-07-18 07:49] LABS: Basophils # (auto) 0.03 K/uL (0-0.2); Basophils % (auto) 0.4 %; Eosinophils # (auto) 0.37 K/uL (0-0.5); Eosinophils % (auto) 5.5 %; Hemoglobin 10.7 g/dL (14.0-18.0); Immature Granulocytes # (auto) 0.12 K/uL (0.00-0.02); Immature Granulocytes % (auto) 1.8 %; Lymphocytes # (auto) 0.61 K/uL (1.2-3.4); Lymphocytes % (auto) 9.1 %; Mean Corpuscular Hemoglobin 27.4 pg (25-34); Mean Corpuscular Hgb Conc 31.5 g/dL (32-36); Mean Corpuscular Volume 87.2 fL (80-100); Mean Platelet Volume 9.7 fL (7.4-10.4); Monocytes # (auto) 0.49 K/uL (0.11-0.59); Monocytes % (auto) 7.3 %; Neutrophils # (auto) 5.05 K/uL (1.4-6.5); Neutrophils % (auto) 75.9 %; Platelet Count 328 K/uL (130-400); RDW Coefficient of Variation 15.8 % (11.5-14.5); RDW Standard Deviation 50.7 fL (36.4-46.3); White Blood Count 6.67 K/uL (4.8-10.8)
[2021-07-18 08:20] LABS: BUN Creatinine Ratio 18.8 (10-20); Calcium 9.1 mg/dl (8.5-10.1); Creatinine Clr Calc Pharmacy 67.5 ml/min; Est GFR (African American) 87.2 ml/min; Est GFR (Non-African American) 75.2 ml/min
[2021-07-18] MEDS: INSULIN ASPART 100 UNITS/ML 3 ML PEN SC SCH ×4 (08:44→20:45)
[2021-07-18] MEDS: ALFUZOSIN HCL 10 MG TAB PO SCH (08:46)
[2021-07-18] MEDS: POTASSIUM CHLORIDE CRTAB 20 MEQ TABCR PO SCH (08:47)
[2021-07-18] MEDS: GABAPENTIN 300 MG CAP PO SCH ×3 (08:47→20:41)
[2021-07-18] MEDS: HYDROXYCHLOROQUINE SULFATE 200 MG TAB PO SCH (08:47)
[2021-07-18] MEDS: CEROVITE ADV FORMULA TAB PO SCH (08:47)
[2021-07-18] MEDS: amLODIPine BESYLATE 5 MG TAB PO SCH (08:47)
[2021-07-18] MEDS: rifAMPin 300 MG CAPSULE PO SCH ×2 (08:47→20:41)
[2021-07-18] MEDS: predniSONE 10 MG TABLET PO SCH (08:47)
[2021-07-18] MEDS: FINASTERIDE 5 MG TAB PO SCH (08:47)
[2021-07-18] MEDS: ceFAZolin 2000MG 2,000 MG/15 ML SYR IV SCH ×3 (08:58→23:48)
[2021-07-18] MEDS: LIDOCAINE 5% 1 PATCH TD SCH (12:55)
[2021-07-18] MEDS ORDERED: FUROSEMIDE 20 MG in SYRINGE 0 ML IV ONE (15:45)
[2021-07-18] MEDS ORDERED: VANCOMYCIN TROUGH ONE (17:30)
--- NOTE | 2021-07-18 18:31 | Hospitalist Progress Note ---
Date of Service July 18, 2021 Assessment & Plan (1) Hypoxia: Plan: 2/2 fluid overload versus atelectasis Inspiratory spirometry every hour Lasix IV given Patient denies history of CHF, but notes he has been on a fluid pill in the past. TTE pending Oxygen requirement downtrending, no home oxygen requirement Continue to assess, anticipate patient to be weaned to room air for discharge Morning CXR if O2 requirement persists (2) Rib pain on right side: Plan: CXR does not show evidence of fracture CT: No acute rib fractures. No pneumothorax. - Warm compresses and Lidoderm patches - Tramadol 50 mg every 6 hours for pain (3) Cellulitis: Plan: Left lower extremity with improving cellulitis, receding from marked lines of maximal expansion Patient had not improved on outpatient doxycycline therapy (although this was started for third left finger), currently improving on vancomycin. 1 dose of Rocephin given prior to admission Past wound culture positive for staph aureus sensitive to tetracyclines Patient with sulfa allergy (lip swelling) that precludes TMP/SMX. Prior staph aureus isolate resistant to clindamycin Hx of osteomyelitis on chronic suppressive therapy with rifampin 300 mg p.o. twice daily, continue -Anti-biotics narrowed to cefazolin, anticipate Keflex on discharge. Patient continues to clinically improve (4) Diabetes with neurologic complications: Plan: Home Metformin held - A1C 7.0% on admit Glucose checks AC/at bedtime Insulin SSI (5) Hypertension: Plan: Continue losartan 100 mg daily Continue amlodipine 10 mg daily (6) Hyperlipidemia: Plan: Continue simvastatin 20 mg nightly (7) Psoriatic arthropathy: Plan: Continue home prednisone 10 mg daily, hydroxychloroquine 200 mg p.o. daily Admission and Anticipated Discharge Date Admission Date: July 16, 2021 Subjective Patient reports he feels improved. No pain in his legs. He is not short of breath, but notes his oxygen levels drop when he stands up. No lightheadedness or dizziness. No chest pain or chest pressure. He denies a history of heart problems or CHF, but thinks he has been on a fluid pill which may have been L asix intermittently in the past. Would prefer to go home today, but understands that his oxygen levels are currently low and requiring nasal cannula. No additional questions or concerns at time of bedside assessment. Reports he is peeing regularly without dysuria. Review of Systems Review of Systems: All systems reviewed & are unremarkable except as noted in HPI & below Physical Exam Physical Exam: General: A&Ox3. NAD. Cooperative. HEENT: Atraumatic, normocephalic. [place] acuity and hearing intact. Pulm: Trace crackles in the bases, otherwise CTAB A&P. -wheezes, -rales, - rhonchi. Symmetrical chest rise. No increase work of breathing. No respiratory distress. Cardiac: RRR, -mrg. Radial pulses intact and symmetrical. No JVD. Abdominal: Nontender, nondistended, soft. BS present. Extremities: 1+ pitting edema in the ankles bilaterally. Upper extremity: Left third digit with dry scab overlying DIP without tenderness/exudate Left lower extremity: Chronic venous stasis changes at the anterior and distal portion of the left lower extremity, no superimposed erythema appreciated overlying chronic venous stasis changes and 1 superficial healing ulcer/lesion without purulence or discharge on anterior harrison. Left knee with 2X skin lesions without purulence. Right lower extremity: Chronic venous stasis changes without superimposed erythema/warmth/tenderness. PT pulse intact bilaterally, feet warm and dry without mottling Results & Data Results & Data ([facility]) Vital Signs (Past 12 Hours) Vital Signs Temp Pulse Pulse Resp BP Pulse Ox 07/18/21 16:19 36.5 C 67 20 107/67 94 07/18/21 16:00 76 07/18/21 11:31 36.7 C 72 18 111/65 91 07/18/21 08:02 36.7 C 82 20 117/67 92 07/18/21 07:43 77 PG Care Time/CCT Total # of Minutes Spent Total Time Spent with Patient: Total time spent is greater than 50% in coordination of care (as documented) at patient's floor/unit and/or counseling patient: Coding Level of Care Code 70237 Subseq Hosp Care Lvl 2 Diagnoses Rib pain on right side R07.81 Cellulitis L03.90 Diabetes with neurologic complications E11.49 Hypertension I10 Hyperlipidemia E78.5 Psoriatic arthropathy L40.50 Hypoxia R09.02
[2021-07-18] MEDS: ASPIRIN 81 MG ECTAB PO SCH (20:40)
[2021-07-18] MEDS: LOSARTAN POTASSIUM 50 MG TAB PO SCH (20:41)
[2021-07-18] MEDS: ENOXAPARIN INJ 40 MG/0.4 ML SYR SQ SCH (20:41)
[2021-07-18] MEDS: SIMVASTATIN 20 MG TAB PO SCH (20:41)
[2021-07-18] MEDS: OXYBUTYNIN CHLORIDE XL 5 MG TABCR PO SCH (20:41)
[2021-07-18] MEDS ORDERED: FUROSEMIDE 40 MG in SYRINGE 0 ML IV ONE (21:30)
[2021-07-19] MEDS: amLODIPine BESYLATE 5 MG TAB PO SCH (09:01)
[2021-07-19 09:07] LABS: Basophils # (auto) 0.04 K/uL (0-0.2); Basophils % (auto) 0.6 %; Eosinophils # (auto) 0.45 K/uL (0-0.5); Eosinophils % (auto) 6.8 %; Hematocrit (blood only) 36.1 % (42-52); Hemoglobin 11.7 g/dL (14.0-18.0); Immature Granulocytes # (auto) 0.21 K/uL (0.00-0.02); Immature Granulocytes % (auto) 3.2 %; Lymphocytes # (auto) 0.82 K/uL (1.2-3.4); Lymphocytes % (auto) 12.5 %; Mean Corpuscular Hemoglobin 27.9 pg (25-34); Mean Corpuscular Hgb Conc 32.4 g/dL (32-36); Mean Platelet Volume 9.4 fL (7.4-10.4); Monocytes # (auto) 0.59 K/uL (0.11-0.59); Neutrophils # (auto) 4.46 K/uL (1.4-6.5); Neutrophils % (auto) 67.9 %; Platelet Count 329 K/uL (130-400); RDW Coefficient of Variation 15.6 % (11.5-14.5); RDW Standard Deviation 49.1 fL (36.4-46.3); White Blood Count 6.57 K/uL (4.8-10.8)
[2021-07-19] MEDS: CEROVITE ADV FORMULA TAB PO SCH (09:10)
[2021-07-19] MEDS: ALFUZOSIN HCL 10 MG TAB PO SCH (09:10)
[2021-07-19] MEDS: POTASSIUM CHLORIDE CRTAB 20 MEQ TABCR PO SCH (09:10)
[2021-07-19] MEDS: rifAMPin 300 MG CAPSULE PO SCH (09:11)
[2021-07-19] MEDS: HYDROXYCHLOROQUINE SULFATE 200 MG TAB PO SCH (09:11)
[2021-07-19] MEDS: FINASTERIDE 5 MG TAB PO SCH (09:11)
[2021-07-19] MEDS: predniSONE 10 MG TABLET PO SCH (09:11)
[2021-07-19] MEDS: ceFAZolin 2000MG 2,000 MG/15 ML SYR IV SCH (09:12)
[2021-07-19] MEDS: INSULIN ASPART 100 UNITS/ML 3 ML PEN SC SCH ×2 (09:14→12:02)
--- NOTE | 2021-07-19 10:31 | XCELERA ---
[id number]
[2021-07-19] MEDS: GABAPENTIN 300 MG CAP PO SCH (11:43)
[2021-07-19] MEDS: LIDOCAINE 5% 1 PATCH TD SCH (11:43)
--- NOTE | 2021-07-19 15:05 | Discharge Summary ---
Date of Service July 19, 2021 Admission HPI Per Admitting Provider This is an 80-year-old male with past medical history of diabetes with neuropathy, arthritis, hypertension, and hyperlipidemia that presents today with generalized weakness as well as several other complaints. Patient is in the room with his . Patient was seen here on 07/08 after a fall in his kitchen. He struck his right side. There was significant pain in this area. Work-up in the ER included an x-ray which was negative for fracture. Patient was given some Lidoderm patches and discharged home. He says the patches worked but not great and was using some Tylenol along with this. Over the next 2 days, patient noticed worsening generalized weakness and fatigue. He was unsteady on his feet but did not fall again. His also noticed increasing redness in his left lower extremity when compared to the right. He does have chronic ulcerations there and follows with wound care but the erythema and drainage is new. Patient had some chills but no overt fevers. However, considering his weakness he presented to the emergency room for further evaluation. In the ER, he was noticed to be slightly hypoxic with a room air pulse ox of 88% initially. During my evaluation he was 93% on room air. He had been afebrile. He denies any fevers but does admit to some chills. Admission Exam Per Admitting Provider Constitutional: cooperative; no acute distress Neck: trachea midline, no thyromegaly Respiratory: normal respiratory effort Auscultation: lungs clear to auscultation bilaterally and + rales (faint at L base); no crackles, no rhonchi and no wheezes Cardiovascular: Rate/Rhythm: regular rate and regular rhythm Heart Sounds: normal S1 and normal S2 Gastrointestinal (Abdomen): Inspection/Auscultation: abdomen normal to inspection Percussion/Palpation: abdomen soft; abdomen nontender, no guarding, abdomen not rigid and no hepatosplenomegaly Musculoskeletal: b/l venous stasis. extensive LLE erythema, small area of drainage that is covered in tape Skin: no rashes, warm and dry Principal Diagnosis LLE Cellulitis Discharge Exam General: A&Ox3. NAD. Cooperative. HEENT: Atraumatic, normocephalic. [place] acuity and hearing intact. Pulm: CTAB A&P. -wheezes, -rales, -rhonchi. Symmetrical chest rise. No increase work of breathing. No respiratory distress. Cardiac: RRR, -mrg. Radial pulses intact and symmetrical. No JVD. Abdominal: Nontender, nondistended, soft. BS present. Extremities: 1+ pitting edema in the ankles bilaterally. Upper extremity: Left third digit with dry scab overlying DIP without tenderness/exudate Left lower extremity: Chronic venous stasis changes at the anterior and distal portion of the left lower extremity, no superimposed erythema appreciated overlying chronic venous stasis changes and 1 superficial healing ulcer/lesion without purulence or discharge on anterior harrison. Left knee with 2X skin lesions without purulence. Right lower extremity: Chronic venous stasis changes without superimposed erythema/warmth/tenderness. PT pulse intact bilaterally, feet warm and dry without mottling Discharge Data Allergies Allergy/AdvReac Type Severity Reaction Status Date / Time amoxicillin Allergy Mild lip Verified 07/16/21 12:33 swelling clavulanic acid Allergy Mild lip Verified 07/16/21 12:33 swelling VINCE Inhibitors Allergy Unknown UNKNOWN-PT Verified 07/16/21 12:33 NOT AWARE clarithromycin Allergy Unknown UNKNOWN-PT Verified 07/16/21 12:33 NOT AWARE Sulfa (Sulfonamide Allergy Unknown LIP Verified 07/16/21 12:33 Antibiotics) SWELLING WITH SULFA DRUGS Consultations 07/16/21 14:10 ED Decision to Admit Stat Ordered Studies 07/16/21 15:44 CT chest diagnostic wo con Routine Hospital Course (1) Cellulitis: Constantino is an 80-year-old male with a past medical history of diabetes with neuropathy, arthritis, hypertension, hyperlipidemia who presented with generalized weakness and a fall and who was found to have worsened left lower extremity cellulitis on admission. He was treated with antibiotic therapy and clinically improved. On physical therapy evaluation he was felt to be safe for discharge home with home health services. To do as outpatient: 1. Follow-up on left lower extremity cellulitis clinical progression with PCP 2. Follow-up on blood pressure. Amlodipine held on discharge 3. Consider outpatient sleep study for concern of increased pulmonary pressure 4. Follow-up on hypoxia, patient felt to have pulmonary vascular congestion but differential includes subtle pneumonia. Patient discharged on Keflex for cornelia lulitis treatment had been treated with doxycycline [employer], continue to reevaluate at outpatient follow-up within 1 week Left lower extremity cellulitis Left lower extremity with improved cellulitis, receding from marked lines of maximal expansion at day of discharge Patient had not improved on outpatient doxycycline therapy (although this was started for third left finger), improved on vanc narrowed to rocephin and continued to improve on keflex Past wound culture positive for staph aureus sensitive to tetracyclines Patient with sulfa allergy (lip swelling) that precludes TMP/SMX. Prior staph aureus isolate resistant to clindamycin Hx of osteomyelitis on chronic suppressive therapy with rifampin 300 mg p.o. twice daily, continue -Anti-biotics narrowed to cefazolin, cellulitis nearly clinically resolved day of discharge. Pt d/kami to complete 1 week of tx with keflex QID 500mg and followup to PCP - Pt instructed to keep wound care followup, is established as outpt and f/u with PCP within 1 week (2) Hypoxia: 2/2 fluid overload versus atelectasis Inspiratory spirometry every hour Lasix IV given x2 Patient denies history of CHF, but notes he has been on a fluid pill in the past. TTE with normal LVSF, mo RV dilation, normal RVSF, mi-mod tricuspid regurg, RVSP 40-50mmHg Oxygen requirement resolved day of discharge Patient reported a strong preference to return home for outpatient follow-up. Patient held 07/18 12/10/2017 for observation of hypoxia and continued treatment, was maintaining SPO2 greater than 90% on day of discharge without oxygen. Discussed/risks benefits of discharge versus observation through the afternoon, patient with strong preference for discharge home. Patient discharged home to follow-up with PCP noting chest x-ray showed some findings which may have been due to congestion improved with Lasix, but that the differential includes pneumonia and he should follow-up with his PCP as if his symptoms worsen may need broadening of his antibiotic coverage. (3) Rib pain on right side: CXR did not show evidence of fracture CT: No acute rib fractures. No pneumothorax. - Warm compresses and Lidoderm patches (4) Diabetes with neurologic complications: Home Metformin held - A1C 7.0% on admit - SSI during admission - Adequate glycemic control during admission (5) Hypertension: Continued losartan 100 mg daily Continued amlodipine 10 mg daily (6) Hyperlipidemia: Continued simvastatin 20 mg nightly (7) Psoriatic arthropathy: Continued home prednisone 10 mg daily, hydroxychloroquine 200 mg p.o. daily Total Time Total Time Spent Total Time Spent (In Minutes): Total time spent preparing discharge including direct patient care, coordination of care, documentation, and review of labs and images approximately 40 minutes. Discharge Plan Discharge Items Patient Disposition: Home - Self-Care Reason For Visit: WEAKNESS, HYPOXIA Discharge Diagnosis: Cellulitis Activity: Resume your previous activity Non-emergency contact: Primary Care Provider Call non-emergency contact if: you have any medication questions, your symptoms worsen, your pain is not controlled, your pain is worsening, your pain is unusual for you, your pain is concerning for you and you have a fever Follow-up/Referrals: Ana Lindo, [Primary Care Provider] - Diet: Regular Addtl Attending Provider Instructions: You were seen in the hospital for cellulitis. You were treated with antibiotics and clinically improved. Your CT scan showed some mild bilateral hilar lymphadenopathy, this should be followed up with a repeat scan by your primary care provider in approximately 6 months. You have been prescribed an antibiotic, Keflex. Please take Keflex 500 mg 4 times daily for 1 week. A followup appointment is being scheduled for you with your PCP, Dr. Lindo. You should be seen seen within 1 week. You should receive a call to confirm this appointment. If you do not receive a call within 48 hours to confirm this appointment, or need to change this appointment, please call the provider's o ffice at [phone] If you develop any new or worsening symptoms including fever, chills, sweats, chest pain, chest pressure, difficulty breathing, uncontrolled nausea/vomiting, rash, wheezing, passing out or nearly passing out, bleeding, black/bloody bowel movements, or other new or concerning symptoms please call your primary care physician at [phone], or call 911 for re-evaluation in the emergency department if you are very concerned. Pending Studies at Discharge: Yes (TTE pending results) Stand-Alone Forms: My [employer], Smoking Cessation Medications and DC Order Prescriptions: New cephalexin 500 mg capsule 500 mg PO QID 7 Days Qty: 28 RF: 0 Continued hydroxychloroquine 200 mg tablet 200 mg PO DAILY RF: 0 rifampin 300 mg capsule 300 mg PO BID RF: 0 aspirin [Adult Low Dose Aspirin] 81 mg tablet,delayed release (DR/EC) 81 mg PO QPM RF: 0 oxybutynin chloride 10 mg tablet extended release 24hr 10 mg PO QPM Qty: 90 RF: 1 metformin 1,000 mg tablet 1,000 mg PO BID Qty: 180 RF: 1 potassium chloride 20 mEq tablet extended release 20 meq PO DAILY Qty: 90 RF: 1 losartan 100 mg tablet 100 mg PO QPM Qty: 90 RF: 1 gabapentin 300 mg capsule 300 mg PO TID Qty: 90 RF: 5 simvastatin 20 mg tablet 20 mg PO QPM Qty: 90 RF: 1 finasteride [Proscar] 5 mg tablet 5 mg PO QAM Qty: 90 RF: 3 prednisone 10 mg tablet 10 mg PO QAM RF: 0 [id number] Tablet 1 tab PO QAM RF: 0 docusate sodium [Stool Softener] 100 mg Capsule 100 mg PO Q OTHER DAY PRN (Reason: Constipation) RF: 0 acetaminophen [Tylenol Extra Strength] 500 mg Tablet 1,000 mg PO Q6H PRN (Reason: Pain) RF: 0 alfuzosin [Uroxatral] 10 mg tablet extended release 24 hr 10 mg PO DAILY RF: 0 Discontinued doxycycline hyclate 100 mg capsule 100 mg PO BID Qty: 28 RF: 0 amlodipine 10 mg tablet 10 mg PO QAM Qty: 90 RF: 1 Discharge Orders: Discharge Order (Routine); Ordered 07/19/21 Ordered By: Kulwinder Mosqueda Admission Data Admit Date/Time: 07/16/21 15:44 Attending Provider: Kulwinder Mosqueda Admit Provider: Nicolas Cisse Primary Care Provider: Ana Lindo Other Providers: Nicolas Cisse Other Interventions: Discharge Summary Assessment (RN) Last Done: 07/19/21 11:48 Coding Level of Care Code D/C DAY MANAGEMENT >30 MINS Diagnoses Hypoxia R09.02 Rib pain on right side R07.81 Cellulitis L03.90 Diabetes with neurologic complications E11.49 Hypertension I10 Hyperlipidemia E78.5 Psoriatic arthropathy L40.50
== END 2021-07-19 13:50 | disposition home or self-care (01) | DRG 603 ==
LOC: ED 09:35 → SUATTDRO 15:44 → 2N 15:44

== ENCOUNTER 2021-07-25 14:16 | Observation (INO) ==
[2021-07-25] MEDS ORDERED: SODIUM CHLORIDE 0.9% 1000ML 1,000 ML IV STA (16:33)
[2021-07-25 16:49] LABS: Basophils # (auto) 0.07 K/uL (0-0.2); Basophils % (auto) 0.9 %; Eosinophils # (auto) 0.23 K/uL (0-0.5); Eosinophils % (auto) 2.9 %; Hemoglobin 12.3 g/dL (14.0-18.0); Immature Granulocytes # (auto) 0.14 K/uL (0.00-0.02); Immature Granulocytes % (auto) 1.8 %; Lymphocytes # (auto) 1.27 K/uL (1.2-3.4); Lymphocytes % (auto) 16.2 %; Mean Corpuscular Hemoglobin 27.9 pg (25-34); Mean Corpuscular Hgb Conc 31.5 g/dL (32-36); Mean Corpuscular Volume 88.4 fL (80-100); Mean Platelet Volume 9.6 fL (7.4-10.4); Monocytes # (auto) 0.66 K/uL (0.11-0.59); Monocytes % (auto) 8.4 %; Neutrophils # (auto) 5.45 K/uL (1.4-6.5); Neutrophils % (auto) 69.8 %; Platelet Count 352 K/uL (130-400); RDW Coefficient of Variation 15.7 % (11.5-14.5); RDW Standard Deviation 50.6 fL (36.4-46.3); Red Blood Count 4.41 M/uL (4.7-6.1); White Blood Count 7.82 K/uL (4.8-10.8)
--- NOTE | 2021-07-25 16:59 | Emergency Department Note ---
Impression & Plan Nausea, vomiting, and diarrhea, Weakness, Right sided abdominal pain ED Provider Note INFORMANT: Patient and ED PROVIDER(S): Grayson Gomez MD CHIEF COMPLAINT: PLAN: Disposition: Admitted Condition: Good Outpatient prescription management: none Referral: None MEDICAL DECISION MAKING: Patient presented because of illness. He was not doing well at home. He is unabl e to really eat or drink well. The states he is dwindling. The patient had a C. difficile test ordered. This is pending. His CT scan of the abdomen pelvis only revealed some right-sided rib fractures. I believe this is his cause of right-sided abdominal discomfort since it was in the area of the right anterolateral ribs. The patient had an unremarkable ECG. His chemistry panel, troponin, LFTs were unremarkable. Patient was hydrated given Zofran. Due to his profound diarrhea and nausea coupled with the weakness and not doing well at home I discussed further management in the hospital. Patient and patient were in agreement as they are concerned about his dwindling status. Consultation was made with Dr. Paras Muhammad of the [facility] service. Patient was evaluated in the ER for further management. Triage Nursing notes reviewed and agree them. Vital Signs: reviewed and remarkable for no significant abnormalities Differential diagnosis: C. difficile colitis, infection, dehydration, metabolic abnormality, hypo/hyperglycemia, electrolyte disturbance, anemia, hypoxia, cardiac sources, intracerebral event, toxicologic, neurologic, as well as other pathologies. Diagnostics interpreted by me: ECG: Twelve-lead ECG reveals sinus rhythm at 96 bpm with frequent PACs. Inferior Q waves. No ST elevation or depression. Normal axis. Cardiac Monitoring: Cardiac monitoring ordered by me: The patient was placed on continuous cardiac monitoring and observed. It revealed a sinus rhythm at 94 beats per minute without evidence of dysrhythmia. Imaging studies: CT scan of the abdomen noted above. I refer you to the EMR for further details. HPI: The patient is a 80 year old male who presents to the Emergency Room with complaints of illness. This started last week and is worsening. The patient also notes the following associated symptoms, generalized weakness, nausea, vomiting, significant diarrhea, right-sided abdominal pain. The patient has found no relieving factors. Current pain is rated as 4/10. Patient states he has no appetite. He was admitted for cellulitis of the left leg and on IV antibiotics. He was transitioned to oral antibiotics. He notes since being discharged he has had increasing weakness and profound diarrhea. Pt denies LOC, headache, fevers, chills, diaphoresis, visual changes, neck pain, chest pain, breathing difficulties, back pain, melena, hematochezia, urinary symptoms, numbness, lymphadenopathy, rash, or other complaints. ROS: See above HPI for pertinent positives & negatives. A total of 10 systems reviewed and were otherwise negative. PAST MEDICAL HISTORY:See Below , BPH, anemia, diabetes PAST SURGICAL HISTORY:See Below, FAMILY HISTORY:See Below SOCIAL HISTORY:See Below, HOME MEDICATIONS:See Below ALLERGIES:See Below VITALS:See Below PHYSICAL EXAMINATION: GENERAL: Awake, tired-appearing, in no distress HENT: Normocephalic, atraumatic. Oropharynx unremarkable. EYES: Normal conjunctiva. Sclera non-icteric. NECK: Inspection normal. Non-tender. Supple. No nuchal rigidity. FROM. No masses. RESPIRATORY: Clear to auscultation. No wheezes. No rales. Normal respiratory effort. CARDIAC: Normal rate. Normal rhythm. No murmurs. No rubs. Extremities warm and well perfused. Pulses equal. No JVD. GI: Soft, non-distended. Right upper flank tenderness to palpation. No rebound or guarding. No masses. RECTAL: Deferred. MUSCULOSKELETAL: Atraumatic. Chest examination reveals no tenderness. The back is symmetrical on inspection without obvious abnormality. There is no CVA tenderness to palpation. No joint edema. LOWER EXTREMITIES: Calves are equal size bilaterally and non-tender. Trace edema. Very minimal right sided erythematous discoloration. NEURO: Normal sensorium. No sensory or motor deficits noted. SKIN: No rash or jaundice noted. 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 Per record review they were unable to intubate on 3 attempts. Fast track LMA were unsuccessful. Were able to mask vent with 2 people. Intubated with nasal fiberoptic. 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) S/P arthroscopy of shoulder (01/2016) Left S/P hammer toe correction (11/2013) arthrodesis R toe S/P laminectomy (04/25/20) S/P laparoscopic cholecystectomy (07/2018) S/P left knee arthroscopy (10/2015) Status post carpal tunnel release of both wrists Family History Mother Cardiac disorder Myocardial infarction Other No family history of adverse response to anesthesia Denies family history of Ovarian cancer Prostate cancer Breast cancer Colorectal cancer Social History Smoking Status: Former smoker Tobacco Type: Cigarettes Cigarettes Per Day: 40 (2ppd); Number of Years Since Quit: 40; Second Hand Exposure: No; Hx Alcohol Use: No Hx Substance Use: No Preferred Language: Ukrainian Communication Ability: Effective Visual Impairment: No Limitations Hearing Ability: Normal 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 Other children live further away. Feels Safe at Home: Yes caffeine: Yes during the past year weight has: increased > 10 lbs Dental Care, Regularly: Yes Physical Activity Frequency: Daily Seatbelt Use: always Sunscreen Use: Yes Assistive Devices: Glasses and Walker Allergies Allergies Allergy/AdvReac Type Severity Reaction Status Date / Time amoxicillin Allergy Mild lip Verified 07/25/21 17:43 swelling clavulanic acid Allergy Mild lip Verified 07/25/21 17:43 swelling VINCE Inhibitors Allergy Unknown UNKNOWN-PT Verified 07/25/21 17:43 NOT AWARE clarithromycin Allergy Unknown UNKNOWN-PT Verified 07/25/21 17:43 NOT AWARE Sulfa (Sulfonamide Allergy Unknown LIP Verified 07/25/21 17:43 Antibiotics) SWELLING WITH SULFA DRUGS Home Meds Home Medications Medication Instructions Recorded Confirmed aspirin 81 mg tablet,delayed 81 mg PO QPM 06/29/18 07/25/21 release (Adult Low Dose Aspirin) docusate sodium 100 mg capsule 100 mg PO Q OTHER DAY PRN 09/13/19 07/25/21 (Stool Softener) [id number] tablet 1 tab PO QAM 09/05/20 07/25/21 acetaminophen 500 mg tablet 1,000 mg PO Q6H PRN 05/03/21 07/25/21 (Tylenol Extra Strength) alfuzosin 10 mg tablet,extended 10 mg PO DAILY 05/03/21 07/25/21 release 24 hr (Uroxatral) prednisone 10 mg tablet 10 mg PO QAM 05/15/21 07/25/21 hydroxychloroquine 200 mg tablet 200 mg PO DAILY 07/02/21 07/25/21 rifampin 300 mg capsule 300 mg PO BID cap 07/02/21 07/25/21 furosemide 20 mg tablet 20 mg PO DAILY PRN 07/25/21 07/25/21 Previous Rx's Medication Instructions Recorded oxybutynin chloride 10 mg 10 mg PO QPM #90 tab 12/17/20 tablet,extended release 24 hr finasteride 5 mg tablet (Proscar) 5 mg PO QAM #90 tab 01/13/21 metformin 1,000 mg tablet 1,000 mg PO BID #180 tab 04/18/21 potassium chloride 20 mEq 20 meq PO DAILY #90 tab 05/28/21 tablet,extended release losartan 100 mg tablet 100 mg PO QPM #90 tab 06/24/21 gabapentin 300 mg capsule 300 mg PO TID #90 cap 07/03/21 simvastatin 20 mg tablet 20 mg PO QPM #90 tab 07/09/21 cephalexin 500 mg capsule 500 mg PO QID 7 Days #28 cap 07/19/21 Results & Data (ED) Vital Signs Vital Signs - 24 hr 07/25/21 14:48 07/25/21 16:36 Temperature 37.2 C Temperature Source Oral Pulse Rate 52 L Pulse Rate [Apical] 94 H Pulse Rhythm [Apical] Regular Pulse Strength [Apical] Normal Respiratory Rate 18 20 Respiratory Effort / Characteristics Non-Labored Non-Labored Spontaneous Respiratory Depth Normal Normal Respiratory Pattern Regular Regular Blood Pressure 111/60 Blood Pressure [Left Arm] 132/67 Blood Pressure Mean 77 Blood Pressure Mean [Left Arm] 88 Blood Pressure Position [Left Arm] Sitting Pulse Oximetry 95 95 Oxygen Delivery Method Room Air Room Air Sepsis Recent Fever Within 48 Hours No Sepsis New/Unexplained Change in Mental Status No Sepsis Action Taken by Nursing No Action Required Laboratory Data Result diagrams: 07/25/21 16:36 07/25/21 17:57 Lab Results 07/25/21 07/25/21 07/25/21 Range/Units 16:36 16:36 16:44 WBC 7.82 (4.8-10.8) K/uL RBC 4.41 L (4.7-6.1) M/uL Hgb 12.3 L (14.0-18.0) g/dL Hct 39.0 L (42-52) % MCV 88.4 (80-100) fL MCH 27.9 (25-34) pg MCHC 31.5 L (32-36) g/dL RDW Std Deviation 50.6 H (36.4-46.3) fL RDW Coeff of Caren 15.7 H (11.5-14.5) % Plt Count 352 (130-400) K/uL MPV 9.6 (7.4-10.4) fL Immature Gran % (Auto) 1.8 % Neut % (Auto) 69.8 % Lymph % (Auto) 16.2 % [place] % (Auto) 8.4 % Eos % (Auto) 2.9 % Baso % (Auto) 0.9 % Neut # (Auto) 5.45 (1.4-6.5) K/uL Lymph # (Auto) 1.27 (1.2-3.4) K/uL [place]lier # (Auto) 0.66 H (0.11-0.59) K/uL Eos # (Auto) 0.23 (0-0.5) K/uL Baso # (Auto) 0.07 (0-0.2) K/uL Immature Gran # (Auto) 0.14 H (0.00-0.02) K/uL Sodium 134 L (136-145) mmol/L Potassium (3.5-5.1) mmol/L Chloride 100 (98-107) mmol/L Carbon Dioxide 25 (21-32) mmol/L Anion Gap 9.0 (3-11) BUN 19 H (7-18) mg/dl Creatinine 1.10 (0.6-1.4) mg/dl Est Cr Clr Drug Dosing Not Reportable Est GFR ( Amer) 72.1 ml/min Est GFR (Non-Af Amer) 62.2 ml/min BUN/Creatinine Ratio 17.2 (10-20) Glucose 97 (70-99) mg/dl Calcium 10.5 H (8.5-10.1) mg/dl Total Bilirubin 0.7 (0.2-1) mg/dl AST (15-37) U/L ALT 27 (12-78) U/L Alkaline Phosphatase 88 (45-117) U/L Troponin I < 0.015 (0-0.045) ng/ml Total Protein 7.9 (6.4-8.2) gm/dl Albumin 2.9 L (3.4-5.0) gm/dl Globulin 5.0 H (2.5-4.0) gm/dl Albumin/Globulin Ratio 0.6 L (0.9-2) Lipase 139 (73-393) U/L Urine Color Urine Appearance (Clear) Urine pH (4.5-7.5) Ur Specific [place] (1.000-1.030) Urine Protein (Negative) Urine Glucose (UA) (Negative) Urine Ketones (Negative) Urine Blood (Negative) Urine Nitrite (Negative) Urine Bilirubin (Negative) Urine Urobilinogen (Negative) Ur Leukocyte Esterase (Negative) Urine RBC (0-4) /hpf Urine WBC (0-5) /hpf Ur Epithelial Cells (0-5) /lpf Calcium Oxalate Crystal (None Prsent) Urine Bacteria (Negative) Hyaline Casts (0-5) /lpf Urine Mucus (None Prsent) COVID-19 Eval Order Covid19 at [facility] SARS-CoV-2 (PCR) (Negative) 07/25/21 07/25/21 07/25/21 Range/Units 16:44 16:57 17:57 WBC (4.8-10.8) K/uL RBC (4.7-6.1) M/uL Hgb (14.0-18.0) g/dL Hct (42-52) % MCV (80-100) fL MCH (25-34) pg MCHC (32-36) g/dL RDW Std Deviation (36.4-46.3) fL RDW Coeff of Caren (11.5-14.5) % Plt Count (130-400) K/uL MPV (7.4-10.4) fL Immature Gran % (Auto) % Neut % (Auto) % Lymph % (Auto) % [place] % (Auto) % Eos % (Auto) % Baso % (Auto) % Neut # (Auto) (1.4-6.5) K/uL Lymph # (Auto) (1.2-3.4) K/uL [place] # (Auto) (0.11-0.59) K/uL Eos # (Auto) (0-0.5) K/uL Baso # (Auto) (0-0.2) K/uL Immature Gran # (Auto) (0.00-0.02) K/uL Sodium (136-145) mmol/L Potassium 4.5 (3.5-5.1) mmol/L Chloride (98-107) mmol/L Carbon Dioxide (21-32) mmol/L Anion Gap (3-11) BUN (7-18) mg/dl Creatinine (0.6-1.4) mg/dl Est Cr Clr Drug Dosing Est GFR ( Amer) ml/min Est GFR (Non-Af Amer) ml/min BUN/Creatinine Ratio (10-20) Glucose (70-99) mg/dl Calcium (8.5-10.1) mg/dl Total Bilirubin (0.2-1) mg/dl AST 20 (15-37) U/L ALT (12-78) U/L Alkaline Phosphatase (45-117) U/L Troponin I (0-0.045) ng/ml Total Protein (6.4-8.2) gm/dl Albumin (3.4-5.0) gm/dl Globulin (2.5-4.0) gm/dl Albumin/Globulin Ratio (0.9-2) Lipase (73-393) U/L Urine Color [place] Urine Appearance Slightly Cloudy (Clear) Urine pH (4.5-7.5) Ur Specific [place] 1.026 (1.000-1.030) Urine Protein (Negative) Urine Glucose (UA) (Negative) Urine Ketones (Negative) Urine Blood (Negative) Urine Nitrite (Negative) Urine Bilirubin (Negative) Urine Urobilinogen (Negative) Ur Leukocyte Esterase (Negative) Urine RBC 0-4 (0-4) /hpf Urine WBC 5-10 H (0-5) /hpf Ur Epithelial Cells 0-5 (0-5) /lpf Calcium Oxalate Crystal Present A (None Prsent) Urine Bacteria 1+ H (Negative) Hyaline Casts >30 H (0-5) /lpf Urine Mucus Present A (None Prsent) COVID-19 Eval Order SARS-CoV-2 (PCR) NEGATIVE (Negative) Administered Medications Sodium Chloride (Nss 1000ml) 1,000 mls @ 125 mls/hr IV .Q8H STA Stop: 07/26/21 00:32 Last Admin: 07/25/21 17:18 Dose: 125 mls/hr Documented by: [id number] Imaging Data Radiologist's Impression: Abdomen/Pelvis CT 07/25/21 16:33 CT SCAN OF THE ABDOMEN AND PELVIS WITHOUT IV CONTRAST CLINICAL HISTORY: Vomiting. Diarrhea. Generalized abdominal pain. COMPARISON STUDY: Pelvic CT dated 07/07/2020. TECHNIQUE: CT scan of the abdomen and pelvis is performed from the lung bases to the proximal femora. Images are reviewed in the axial, sagittal, and coronal planes. IV contrast was not administered for this examination as per the referring clinician. Note that the examination was performed in significantly suboptimal fashion without oral and IV contrast. The examination is also degraded by motion artifact. A dose lowering technique was utilized adhering to the principles of ALARA. CT DOSE: 914.65 mGy.cm FINDINGS: Lung bases: The heart is normal in size and without pericardial effusion. The coronary arteries are densely calcified. There is a tiny hiatal hernia. The lung bases are clear noting bibasilar scarring/atelectasis. Liver: The unenhanced liver is normal in size, contour, and attenuation. There is no intrahepatic biliary ductal dilatation. Gallbladder: Surgically absent noting clips in the gallbladder fossa. Spleen: Normal in size and attenuation. Pancreas: The unenhanced pancreas is atrophic and grossly unremarkable. Adrenal glands: Unremarkable. Kidneys: The unenhanced kidneys demonstrate cortical atrophy and are without hydronephrosis. There are least 2 punctate nonobstructing right renal calculi. No left renal calculi are seen. A 2 cm cyst is incidentally noted in the left kidney. Abdominal vasculature: There is advanced atherosclerotic calcification and ectasia of the abdominal aorta. Bowel: There is no bowel obstruction. The appendix is well-visualized and normal. Peritoneum: There is no intraperitoneal free air or abdominal ascites. Lymphadenopathy: None. Pelvic viscera: The prostate gland is mildly enlarged and heterogeneous noting median lobe hypertrophy. The bladder is decompressed and grossly unremarkable. Skeletal structures: The skeletal structures are osteopenic. There is moderate lumbosacral spondylosis. No lytic or blastic lesions are seen. There are subacute appearing right anterolateral 8th and 9th rib fractures. IMPRESSION: 1. Significantly suboptimal examination without oral and IV contrast. There is also motion artifact. 2. No acute infectious or inflammatory findings are identified in the abdomen or pelvis. 3. There are subacute appearing right anterolateral rib fractures. Correlate for point tenderness. 4. Right-sided nephrolithiasis. 5. Additional findings as above. ACT 112: Negative or not required by law. Electronically signed by: Vitaly Roman M.D. 07/25/2021 5:30 PM Discharge Plan Visit Data Chief Complaint: Illness Stated Complaint: DIARRHEA,VOMITING,CELLULITIS,''SICK ALL OVER'' ED Provider: Grayson Gomez Discharge Problem: Nausea, vomiting, and diarrhea, Weakness, Right sided abdominal pain Forms Stand Alone Forms: My [facility] Prescriptions Prescriptions: No Action hydroxychloroquine 200 mg tablet 200 mg PO DAILY RF: 0 rifampin 300 mg capsule 300 mg PO BID RF: 0 aspirin [Adult Low Dose Aspirin] 81 mg tablet,delayed release (DR/EC) 81 mg PO QPM RF: 0 oxybutynin chloride 10 mg tablet extended release 24hr 10 mg PO QPM Qty: 90 RF: 1 metformin 1,000 mg tablet 1,000 mg PO BID Qty: 180 RF: 1 potassium chloride 20 mEq tablet extended release 20 meq PO DAILY Qty: 90 RF: 1 losartan 100 mg tablet 100 mg PO QPM Qty: 90 RF: 1 gabapentin 300 mg capsule 300 mg PO TID Qty: 90 RF: 5 simvastatin 20 mg tablet 20 mg PO QPM Qty: 90 RF: 1 finasteride [Proscar] 5 mg tablet 5 mg PO QAM Qty: 90 RF: 3 prednisone 10 mg tablet 10 mg PO QAM RF: 0 [id number] Tablet 1 tab PO QAM RF: 0 docusate sodium [Stool Softener] 100 mg Capsule 100 mg PO Q OTHER DAY PRN (Reason: Constipation) RF: 0 furosemide 20 mg tablet 20 mg PO DAILY PRN (Reason: .EDEMA) RF: 0 acetaminophen [Tylenol Extra Strength] 500 mg Tablet 1,000 mg PO Q6H PRN (Reason: Pain) RF: 0 alfuzosin [Uroxatral] 10 mg tablet extended release 24 hr 10 mg PO DAILY RF: 0 cephalexin 500 mg capsule 500 mg PO QID 7 Days Qty: 28 RF: 0 Referrals Referrals: Ana Lindo DO [Primary Care Provider] -
[2021-07-25 17:13] LABS: Alanine Aminotransferase 27 U/L (12-78); Albumin Globulin Ratio 0.6 (0.9-2); Albumin Level 2.9 gm/dl (3.4-5.0); Alkaline Phosphatase 88 U/L (45-117); BUN Creatinine Ratio 17.2 (10-20); Bilirubin,Total 0.7 mg/dl (0.2-1); Blood Urea Nitrogen 19 mg/dl (7-18); Calcium 10.5 mg/dl (8.5-10.1); Carbon Dioxide 25 mmol/L (21-32); Chloride 100 mmol/L (98-107); Est GFR (African American) 72.1 ml/min; Est GFR (Non-African American) 62.2 ml/min; Glucose 97 mg/dl (70-99); Lipase 139 U/L (73-393); Sodium 134 mmol/L (136-145); Total Protein 7.9 gm/dl (6.4-8.2); Troponin I < 0.015 ng/ml (0-0.045)
--- NOTE | 2021-07-25 17:31 | CT Scan Report ---
CT SCAN OF THE ABDOMEN AND PELVIS WITHOUT IV CONTRAST CLINICAL HISTORY: Vomiting. Diarrhea. Generalized abdominal pain. COMPARISON STUDY: Pelvic CT dated 07/07/2020. TECHNIQUE: CT scan of the abdomen and pelvis is performed from the lung bases to the proximal femora. Images are reviewed in the axial, sagittal, and coronal planes. IV contrast was not administered for this examination as per the referring clinician. Note that the examination was performed in signific antly suboptimal fashion without oral and IV contrast. The examination is also degraded by motion art ifact. A dose lowering technique was utilized adhering to the principles of ALARA. CT DOSE: 914.65 mGy.cm FINDINGS: Lung bases: The heart is normal in size and without pericardial effusion. The coronary arteries are d ensely calcified. There is a tiny hiatal hernia. The lung bases are clear noting bibasilar scarring/a telectasis. Liver: The unenhanced liver is normal in size, contour, and attenuation. There is no intrahepatic shantal iary ductal dilatation. Gallbladder: Surgically absent noting clips in the gallbladder fossa. Spleen: Normal in size and attenuation. Pancreas: The unenhanced pancreas is atrophic and grossly unremarkable. Adrenal glands: Unremarkable. Kidneys: The unenhanced kidneys demonstrate cortical atrophy and are without hydronephrosis. There ar e least 2 punctate nonobstructing right renal calculi. No left renal calculi are seen. A 2 cm cyst is incidentally noted in the left kidney. Abdominal vasculature: There is advanced atherosclerotic calcification and ectasia of the abdominal a adam. Bowel: There is no bowel obstruction. The appendix is well-visualized and normal. Peritoneum: There is no intraperitoneal free air or abdominal ascites. Lymphadenopathy: None. Pelvic viscera: The prostate gland is mildly enlarged and heterogeneous noting median lobe hypertroph y. The bladder is decompressed and grossly unremarkable. Skeletal structures: The skeletal structures are osteopenic. There is moderate lumbosacral spondylosi s. No lytic or blastic lesions are seen. There are subacute appearing right anterolateral 8th and 9th rib fractures. IMPRESSION: 1. Significantly suboptimal examination without oral and IV contrast. There is also motion artifact. 2. No acute infectious or inflammatory findings are identified in the abdomen or pelvis. 3. There are subacute appearing right anterolateral rib fractures. Correlate for point tenderness. 4. Right-sided nephrolithiasis. 5. Additional findings as above. ACT 112: Negative or not required by law. Electronically signed by: Vitaly Roman M.D. 07/25/2021 5:30 PM
[2021-07-25 17:35] LABS: Appearance Urine Slightly Cloudy (Clear); Color Urine Orange
[2021-07-25 17:39] LABS: Specific Gravity Urine 1.026 (1.000-1.030)
[2021-07-25 17:41] LABS: Epithelial Cell Urine 0-5 /lpf (0-5); Hyaline Casts Urine >30 /lpf (0-5); Mucus Urine Present (None Prsent)
[2021-07-25 17:42] LABS: Calcium Oxalate Crystals Urine Present (None Prsent); RBC Urine 0-4 /hpf (0-4)
[2021-07-25 17:43] LABS: Bacteria Urine 1+ (Negative)
[2021-07-25 18:16] LABS: Potassium 4.5 mmol/L (3.5-5.1)
--- NOTE | 2021-07-25 19:06 | History & Physical Report ---
Date of Service July 25, 2021 Assessment & Plan (1) Weakness: Plan: Constantino Quiroz is an 80 y/o male w/ PMHx of RA (chronic prednisone PO 10mg) and DM who presents for a week of malaise and diarrhea after recent 07/19/21 hosp discharge for cellulitis. - considered chronic adrenal suppression: check am cortisol. if inappropriate, consider 24 hours of stress dose steroids - UA w/ 1+ bacteria and mucus. questionable new urinary symptoms. urine culture ordered, if positive w/ large colony count, then treat - started on maintenance fluid in ED for minimal PO intake x 1 wk. Will discontinue to reduce incidence of fluid overload (patient on Lasix at home). EF from recent echo acceptable, 55-60. Ordered incentive spirometry. - ecg showing junctional rhythm w/ bigemini which was not noted on 07/16/21 ecg. Called telemetry station at 10:33PM, same rhythm. ordered BMP, Mg, and phos lab. Patient had low Mg to 1.4 last admission (on 07/16/21). Will replete if needed. - PT/OT ordered (2) Watery diarrhea: Plan: - recent abx use for cellulitis - no leukocytosis at admission - c diff ordered by ED. stool culture added (3) Rib pain on right side: Plan: - appears to be related to rib contusion as opposed to abdominal pain. Abd exam nontender. ct abd w/o obstruction - lidocaine patch ordered (4) Cellulitis: Plan: - continue QID PO cephalexin for now (5) Hx of deep venous thrombosis: Plan: - SQ lovenox ordered - defer SCDs because of harrison cellulitis and possible open wounds (6) Chronic steroid use: Plan: - see above (7) Diabetes mellitus, type 2: Plan: - continue home metformin unless starting stress dose steroids (8) Hepatic steatosis: Plan: - hx of listed in chart records, however, CT abd showing normal liver (9) BPH with obstruction/lower urinary tract symptoms: Plan: - has chronic lower urinary tract obstructive symptoms - unclear if the week of urinary frequency and urgency is from infection - lower suspicion for UTI because patient had been on oral Keflex - if gram neg UTI, would expect to see nitrates on UA Plan: FEN/GI: HH. NSS 125/hr started as above. I have placed order to discontinue. ppx: SQ Lovenox code: full dispo: med/surg tele covid test negative History of Present Illness Chief Complaint: poor appetite, generalized weakness, diarrhea Primary Care Provider: Ana Lindo DO Constantino Quiroz is an 80 y/o male w/ PMHx of rheumatoid arthritis (chronic prednisone PO 10mg), hx of osteomyelitis (chronic rifampin), NIDDM and BPH who presents for a week of poor appetite, generalized weakness, diarrhea after 07/19/21 hosp discharge for BLE cellulitis. + intermittent nausea. He has had very poor appetite and decreased sense of taste. His diarrhea is 2-4 episodes/day, liquidly (no mucous or blood), and very foul smelling. It is triggered by eating. + some abdominal bloating, but denies constipation. Denies hx of c diff. He is s/p Pfizer x2. No fever chills. He has R sided rib pain (minimal at rest, but triggered by movement) 2/2 a fall 2 wks ago. ED course: NSS 125/hr. CT abd pelv w/o acute infectious/inflamm findings. + R sided nephrolithiasis and subacute right 8th-9th rib fractures. Allergies Allergy/AdvReac Type Severity Reaction Status Date / Time amoxicillin Allergy Mild lip Verified 07/25/21 17:43 swelling clavulanic acid Allergy Mild lip Verified 07/25/21 17:43 swelling VINCE Inhibitors Allergy Unknown UNKNOWN-PT Verified 07/25/21 17:43 NOT AWARE clarithromycin Allergy Unknown UNKNOWN-PT Verified 07/25/21 17:43 NOT AWARE Sulfa (Sulfonamide Allergy Unknown LIP Verified 07/25/21 17:43 Antibiotics) SWELLING WITH SULFA DRUGS Home Medications Medication Instructions Recorded Confirmed Type aspirin 81 mg tablet,delayed 81 mg PO QPM 06/29/18 07/25/21 History release (Adult Low Dose Aspirin) docusate sodium 100 mg capsule 100 mg PO Q OTHER DAY PRN 09/13/19 07/25/21 History (Stool Softener) wdepexczcftf-thrfyqyg-lhtjyf tablet 1 tab PO QAM 09/05/20 07/25/21 History oxybutynin chloride 10 mg 10 mg PO QPM #90 tab 12/17/20 07/25/21 Rx tablet,extended release 24 hr finasteride 5 mg tablet (Proscar) 5 mg PO QAM #90 tab 01/13/21 07/25/21 Rx metformin 1,000 mg tablet 1,000 mg PO BID #180 tab 04/18/21 07/25/21 Rx acetaminophen 500 mg tablet 1,000 mg PO Q6H PRN 05/03/21 07/25/21 History (Tylenol Extra Strength) alfuzosin 10 mg tablet,extended 10 mg PO DAILY 05/03/21 07/25/21 History release 24 hr (Uroxatral) prednisone 10 mg tablet 10 mg PO QAM 05/15/21 07/25/21 History potassium chloride 20 mEq 20 meq PO DAILY #90 tab 05/28/21 07/25/21 Rx tablet,extended release losartan 100 mg tablet 100 mg PO QPM #90 tab 06/24/21 07/25/21 Rx hydroxychloroquine 200 mg tablet 200 mg PO DAILY 07/02/21 07/25/21 History rifampin 300 mg capsule 300 mg PO BID cap 07/02/21 07/25/21 History gabapentin 300 mg capsule 300 mg PO TID #90 cap 07/03/21 07/25/21 Rx simvastatin 20 mg tablet 20 mg PO QPM #90 tab 07/09/21 07/25/21 Rx cephalexin 500 mg capsule 500 mg PO QID 7 Days #28 cap 07/19/21 07/25/21 Rx furosemide 20 mg tablet 20 mg PO DAILY PRN 07/25/21 07/25/21 History Past Med/Surg History Medical History (Updated 07/26/21 @ 10:15 by Paras Muhammad MD) BPH with obstruction/lower urinary tract symptoms Chronic anemia Chronic back pain Chronic steroid use RA Depression Diabetes mellitus, type 2 NIDDM - controlled 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 Elevated lactic acid level GERD (gastroesophageal reflux disease) Hepatic steatosis Hiatal hernia History of compression fracture of spine (07/2020) History of elevated prostate specific antigen (PSA) History of osteomyelitis (04/2020) Hyperlipidemia Hypertension Osteoarthritis Osteomyelitis (04/2020) Psoriatic arthropathy Rib pain on right side Tachycardia Urinary incontinence Urinary symptom or sign Venous insufficiency (chronic) (peripheral) Surgical History H/O bilateral cataract extraction H/O elbow surgery History of tonsillectomy Hx of difficult intubation History of difficult intubation in 2007 at [facility]. Per record review they were unable to intubate on 3 attempts. Fast track LMA were unsuccessful. Were able to mask vent with 2 people. Intubated with nasal fiberoptic. 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) S/P arthroscopy of shoulder (01/2016) Left S/P hammer toe correction (11/2013) arthrodesis R toe S/P laminectomy (04/25/20) S/P laparoscopic cholecystectomy (07/2018) S/P left knee arthroscopy (10/2015) Status post carpal tunnel release of both wrists Family History Mother Cardiac disorder Myocardial infarction Other No family history of adverse response to anesthesia Denies family history of Ovarian cancer Prostate cancer Breast cancer Colorectal cancer Social History Smoking Status: Former smoker Tobacco Type: Cigarettes Cigarettes Per Day: 40 (2ppd); Number of Years Since Quit: 40; Second Hand Exposure: No; Do You Dip or Chew Tobacco: No; Tobacco Cessation Education Requested by Patient: No Hx Alcohol Use: No Hx Substance Use: No Preferred Language: [place] Communication Ability: Effective Visual Impairment: No Limitations Hearing Ability: Normal 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 Other children live further away. Other Information That Helps Us Care for You: No Feels Safe at Home: Yes Safety Concerns: Feels Safe At This Time caffeine: Yes during the past year weight has: increased > 10 lbs Dental Care, Regularly: Yes Physical Activity Frequency: Daily Seatbelt Use: always Sunscreen Use: Yes Assistive Devices: Denture - Upper, Denture - Lower, Glasses and Special Shoe Assistive Devices Comment: Pt. brought cane from home Review of Systems Review of Systems: All systems reviewed & are unremarkable except as noted in HPI & below Constitutional: Denies fever. + intermittent chills. + generalized wkness and fatigue. + weight loss because hasn't eaten. Eyes: Denies blurry vision, vision changes ENT: Denies sore throat. chronic clear phlegm w/ cough. Cardiovascular: Denies chest pain, palpitations Respiratory: Denies shortness of breath Gastrointestinal: Denies nausea, vomiting, constipation. + some R rib/abd pain. yest + nausea and dry heave. + diarrhea Genitourinary: + urinary frequency x 1 week, urgency. no dysuria. Denies hx of UTI. Musculoskeletal: No myalgia. + hx arthritis and neuropathy Neurological: Denies headache, numbness, tingling, focal weakness. Physical Exam Physical Exam: General: Grossly A&O. NAD. Cooperative. HEENT: Atraumatic, normocephalic. EOMI. PERRL. thick neck Pulm: CTAB. -wheezes, -rales, -rhonchi. No respiratory distress. Cardiac: RRR, -mrg. Radial pulses intact and symmetrical. Trace BLE. Erythema at bilateral shins, worse on left; consistent w/ healing cellulitis; no weeping Abdominal: Nontender, nondistended, soft. Msk: Focal TTP at R anterolateral ~8th-9th rib. Neuro: CN II-XII intact. Strength and sensation of extremities intact. Results & Data Results & Data ([facility]) Vital Signs (Past 12 Hours) Vital Signs Temp Pulse Pulse Resp BP BP Pulse Ox 07/25/21 16:36 94 H 20 132/67 95 07/25/21 14:48 37.2 C 52 L 18 111/60 95 Laboratory Results Laboratory Results WBC 7.82 K/uL (4.8-10.8) 07/25/21 16:36 RBC 4.41 M/uL (4.7-6.1) L 07/25/21 16:36 Hgb 12.3 g/dL (14.0-18.0) L 07/25/21 16:36 Hct 39.0 % (42-52) L 07/25/21 16:36 MCV 88.4 fL (80-100) 07/25/21 16:36 MCH 27.9 pg (25-34) 07/25/21 16:36 MCHC 31.5 g/dL (32-36) L 07/25/21 16:36 RDW Std Deviation 50.6 fL (36.4-46.3) H 07/25/21 16:36 RDW Coeff of Caren 15.7 % (11.5-14.5) H 07/25/21 16:36 Plt Count 352 K/uL (130-400) 07/25/21 16:36 MPV 9.6 fL (7.4-10.4) 07/25/21 16:36 Immature Gran % (Auto) 1.8 % 07/25/21 16:36 Neut % (Auto) 69.8 % 07/25/21 16:36 Lymph % (Auto) 16.2 % 07/25/21 16:36 [place] % (Auto) 8.4 % 07/25/21 16:36 Eos % (Auto) 2.9 % 07/25/21 16:36 Baso % (Auto) 0.9 % 07/25/21 16:36 Neut # (Auto) 5.45 K/uL (1.4-6.5) 07/25/21 16:36 Lymph # (Auto) 1.27 K/uL (1.2-3.4) 07/25/21 16:36 [place] # (Auto) 0.66 K/uL (0.11-0.59) H 07/25/21 16:36 Eos # (Auto) 0.23 K/uL (0-0.5) 07/25/21 16:36 Baso # (Auto) 0.07 K/uL (0-0.2) 07/25/21 16:36 Immature Gran # (Auto) 0.14 K/uL (0.00-0.02) H 07/25/21 16:36 Sodium 134 mmol/L (136-145) L 07/25/21 16:36 Potassium 4.5 mmol/L (3.5-5.1) 07/25/21 17:57 Chloride 100 mmol/L (98-107) 07/25/21 16:36 Carbon Dioxide 25 mmol/L (21-32) 07/25/21 16:36 Anion Gap 9.0 (3-11) 07/25/21 16:36 BUN 19 mg/dl (7-18) H 07/25/21 16:36 Creatinine 1.10 mg/dl (0.6-1.4) 07/25/21 16:36 Est Cr Clr Drug Dosing Not Reportable 07/25/21 16:36 Est GFR ( Amer) 72.1 ml/min 07/25/21 16:36 Est GFR (Non-Af Amer) 62.2 ml/min 07/25/21 16:36 BUN/Creatinine Ratio 17.2 (10-20) 07/25/21 16:36 Glucose 97 mg/dl (70-99) 07/25/21 16:36 Calcium 10.5 mg/dl (8.5-10.1) H 07/25/21 16:36 Total Bilirubin 0.7 mg/dl (0.2-1) 07/25/21 16:36 AST 20 U/L (15-37) 07/25/21 17:57 ALT 27 U/L (12-78) 07/25/21 16:36 Alkaline Phosphatase 88 U/L (45-117) 07/25/21 16:36 Troponin I < 0.015 ng/ml (0-0.045) 07/25/21 16:36 Total Protein 7.9 gm/dl (6.4-8.2) 07/25/21 16:36 Albumin 2.9 gm/dl (3.4-5.0) L 07/25/21 16:36 Globulin 5.0 gm/dl (2.5-4.0) H 07/25/21 16:36 Albumin/Globulin Ratio 0.6 (0.9-2) L 07/25/21 16:36 Lipase 139 U/L (73-393) 07/25/21 16:36 Urine Color [place] 07/25/21 16:57 Urine Appearance Slightly Cloudy (Clear) 07/25/21 16:57 Urine pH (4.5-7.5) 07/25/21 16:57 Ur Specific [place] 1.026 (1.000-1.030) 07/25/21 16:57 Urine Protein (Negative) 07/25/21 16:57 Urine Glucose (UA) (Negative) 07/25/21 16:57 Urine Ketones (Negative) 07/25/21 16:57 Urine Blood (Negative) 07/25/21 16:57 Urine Nitrite (Negative) 07/25/21 16:57 Urine Bilirubin (Negative) 07/25/21 16:57 Urine Urobilinogen (Negative) 07/25/21 16:57 Ur Leukocyte Esterase (Negative) 07/25/21 16:57 Urine RBC 0-4 /hpf (0-4) 07/25/21 16:57 Urine WBC 5-10 /hpf (0-5) H 07/25/21 16:57 Ur Epithelial Cells 0-5 /lpf (0-5) 07/25/21 16:57 Calcium Oxalate Crystal Present (None Prsent) A 07/25/21 16:57 Urine Bacteria 1+ (Negative) H 07/25/21 16:57 Hyaline Casts >30 /lpf (0-5) H 07/25/21 16:57 Urine Mucus Present (None Prsent) A 07/25/21 16:57 COVID-19 Eval Order Covid19 at [facility] 07/25/21 16:44 SARS-CoV-2 (PCR) NEGATIVE (Negative) 07/25/21 16:44 Impressions Abdomen/Pelvis CT 07/25/21 16:33 CT SCAN OF THE ABDOMEN AND PELVIS WITHOUT IV CONTRAST CLINICAL HISTORY: Vomiting. Diarrhea. Generalized abdominal pain. COMPARISON STUDY: Pelvic CT dated 07/07/2020. TECHNIQUE: CT scan of the abdomen and pelvis is performed from the lung bases to the proximal femora. Images are reviewed in the axial, sagittal, and coronal planes. IV contrast was not administered for this examination as per the referring clinician. Note that the examination was performed in significantly suboptimal fashion without oral and IV contrast. The examination is also degraded by motion artifact. A dose lowering technique was utilized adhering to the principles of ALARA. CT DOSE: 914.65 mGy.cm FINDINGS: Lung bases: The heart is normal in size and without pericardial effusion. The coronary arteries are densely calcified. There is a tiny hiatal hernia. The lung bases are clear noting bibasilar scarring/atelectasis. Liver: The unenhanced liver is normal in size, contour, and attenuation. There is no intrahepatic biliary ductal dilatation. Gallbladder: Surgically absent noting clips in the gallbladder fossa. Spleen: Normal in size and attenuation. Pancreas: The unenhanced pancreas is atrophic and grossly unremarkable. Adrenal glands: Unremarkable. Kidneys: The unenhanced kidneys demonstrate cortical atrophy and are without hydronephrosis. There are least 2 punctate nonobstructing right renal calculi. No left renal calculi are seen. A 2 cm cyst is incidentally noted in the left kidney. Abdominal vasculature: There is advanced atherosclerotic calcification and ectasia of the abdominal aorta. Bowel: There is no bowel obstruction. The appendix is well-visualized and normal. Peritoneum: There is no intraperitoneal free air or abdominal ascites. Lymphadenopathy: None. Pelvic viscera: The prostate gland is mildly enlarged and heterogeneous noting median lobe hypertrophy. The bladder is decompressed and grossly unremarkable. Skeletal structures: The skeletal structures are osteopenic. There is moderate lumbosacral spondylosis. No lytic or blastic lesions are seen. There are subacute appearing right anterolateral 8th and 9th rib fractures. IMPRESSION: 1. Significantly suboptimal examination without oral and IV contrast. There is also motion artifact. 2. No acute infectious or inflammatory findings are identified in the abdomen or pelvis. 3. There are subacute appearing right anterolateral rib fractures. Correlate for point tenderness. 4. Right-sided nephrolithiasis. 5. Additional findings as above. ACT 112: Negative or not required by law. Electronically signed by: Vitaly Roman M.D. 07/25/2021 5:30 PM Code Status & VTE Plan Code Status full VTE Prophylaxis Plan VTE Prophylaxis will be ordered: Yes Supervising Physician Co-Signing Physician Notes Resident Physician Supervision Note: I interviewed and examined the patient. Discussed with Dr. Dionisio Emmanuel and agree with findings and plan as documented in the note. Any exceptions or clarifications are listed here: none She presents with weakness diarrhea dysuria. Recently discharged after cellulitis of his lower extremities on Keflex. Typically takes rifampin for chronic osteomyelitis of his neck. Poorly his diarrhea is foul-smelling. He is not a leukocytosis here. CT abdomen pelvis does not show any significant intra- abdominal issues. He does have age-indeterminate rib fractures which we are aware of at time of discharge. Patient typically is on steroids chronically for rheumatoid arthritis. Physical examination is fairly unremarkable with regard he is a focal right rib pain cardiac exam is regular lungs are clear abdomen was NABS soft he is mildly uncomfortable his left lower quadrant but not overtly uncomfortable to consider diverticulitis. His distal extremities only residual remnants of his previous cellulitis. Patient be observed in our facility considerations would be C. difficile although he does have leukocytosis stool cultures will be sent. Adrenal insufficiency although is not a significant electrolyte abnormalities we will check an a.m. cortisol functional decline from multiple medical issues patient be hydrated physical therapy and Occupational Therapy. And with regard to his dysuria we will check a urine culture. Continue his home medications Documented By: Paras Muhammad MD Resident Activity Tracking Resident Involvement: Resident Care Provided Care Provided: [facility]
--- NOTE | 2021-07-25 19:51 | Billing Data ---
Date of Service July 25, 2021 Coding Level of Care Code 87700 Subseq Obs Care Lvl 2
[2021-07-25] MEDS ORDERED: cephALEXin 250 MG CAP PO STA (20:27)
[2021-07-25] MEDS ORDERED: rifAMPin 300 MG CAPSULE PO STA (20:27)
[2021-07-25] MEDS ORDERED: ENOXAPARIN INJ 40 MG/0.4 ML SYR SQ STA (20:27)
[2021-07-25] MEDS ORDERED: metFORMIN HCL 500 MG TAB PO STA (20:27)
[2021-07-25] MEDS ORDERED: ACETAMINOPHEN 325 MG TAB PO PRN (22:21)
[2021-07-25] MEDS ORDERED: ENOXAPARIN INJ 30 MG/0.3 ML SYR SQ SCH (22:21)
[2021-07-25] MEDS ORDERED: FAMOTIDINE 10 MG TABLET PO PRN (23:14)
[2021-07-25 23:37] LABS: BUN Creatinine Ratio 19.8 (10-20); Calcium 9.2 mg/dl (8.5-10.1); Creatinine Clr Calc Pharmacy 67.2 ml/min; Est GFR (African American) 89.5 ml/min; Est GFR (Non-African American) 77.2 ml/min; Magnesium 1.4 mg/dl (1.8-2.4); Phosphorus 2.8 mg/dl (2.5-4.9); Potassium 3.7 mmol/L (3.5-5.1)
[2021-07-26] MEDS ORDERED: POTASSIUM CHLORIDE CRTAB 20 MEQ TABCR PO STA (00:43)
[2021-07-26] MEDS: MAGNESIUM SULFATE / D5W 1 GM/100 ML BAG IV SCH ×3 (01:17→05:01)
[2021-07-26 06:43] LABS: Basophils % (auto) 1.4 %; Eosinophils # (auto) 0.33 K/uL (0-0.5); Eosinophils % (auto) 4.6 %; Hematocrit (blood only) 34.8 % (42-52); Hemoglobin 11.1 g/dL (14.0-18.0); Immature Granulocytes # (auto) 0.13 K/uL (0.00-0.02); Immature Granulocytes % (auto) 1.8 %; Lymphocytes # (auto) 1.54 K/uL (1.2-3.4); Lymphocytes % (auto) 21.5 %; Mean Corpuscular Hemoglobin 27.9 pg (25-34); Mean Corpuscular Hgb Conc 31.9 g/dL (32-36); Mean Corpuscular Volume 87.4 fL (80-100); Mean Platelet Volume 9.6 fL (7.4-10.4); Monocytes # (auto) 0.68 K/uL (0.11-0.59); Monocytes % (auto) 9.5 %; Neutrophils # (auto) 4.38 K/uL (1.4-6.5); Neutrophils % (auto) 61.2 %; Platelet Count 334 K/uL (130-400); RDW Coefficient of Variation 15.6 % (11.5-14.5); RDW Standard Deviation 49.9 fL (36.4-46.3); Red Blood Count 3.98 M/uL (4.7-6.1); White Blood Count 7.16 K/uL (4.8-10.8)
[2021-07-26 07:12] LABS: BUN Creatinine Ratio 18.7 (10-20); Blood Urea Nitrogen 16 mg/dl (7-18); Calcium 9.2 mg/dl (8.5-10.1); Carbon Dioxide 27 mmol/L (21-32); Chloride 102 mmol/L (98-107); Est GFR (African American) 93.2 ml/min; Est GFR (Non-African American) 80.4 ml/min; Glucose 109 mg/dl (70-99); Magnesium 2.3 mg/dl (1.8-2.4); Potassium 3.9 mmol/L (3.5-5.1); Sodium 136 mmol/L (136-145)
[2021-07-26 07:17] LABS: Troponin I < 0.015 ng/ml (0-0.045)
[2021-07-26] MEDS: GABAPENTIN 300 MG CAP PO SCH ×3 (07:58→20:38)
[2021-07-26] MEDS: LIDOCAINE 5% 1 PATCH TD SCH (07:58)
[2021-07-26] MEDS: cephALEXin 500 MG CAP PO SCH ×4 (07:59→20:37)
[2021-07-26] MEDS: metFORMIN HCL 500 MG TAB PO SCH ×2 (07:59→17:19)
[2021-07-26] MEDS: HYDROXYCHLOROQUINE SULFATE 200 MG TAB PO SCH (07:59)
[2021-07-26] MEDS: POTASSIUM CHLORIDE CRTAB 20 MEQ TABCR PO SCH (07:59)
[2021-07-26] MEDS: rifAMPin 300 MG CAPSULE PO SCH ×2 (07:59→20:39)
[2021-07-26] MEDS: FINASTERIDE 5 MG TAB PO SCH (07:59)
[2021-07-26] MEDS ORDERED: predniSONE 10 MG TABLET PO SCH (09:00)
--- NOTE | 2021-07-26 10:18 | Hospitalist Progress Note ---
Date of Service July 26, 2021 Assessment & Plan (1) Weakness: Plan: Pt presented with weakness after recent hospital stay, so far negative studies for infectious etiologies, will give one day of stress dose steroids and see if improved diarrhea, negative for C diff, will also await for final culture (2) Chronic steroid use: Plan: pt typially on chronic steroids for RA with recent hospital stay for cellulitis may need some stress coverage (3) Diabetes mellitus, type 2: Plan: continue metformin and add ssi for steroid coverage (4) Hepatic steatosis: Plan: imaging on CT does not show hepatic architecture consistent with steatosis (5) Rib pain on right side: Plan: will continue with symptomatic pain relief (6) BPH with obstruction/lower urinary tract symptoms: Plan: on finesteride, does have an abnormal urine and will send culture (7) Cellulitis: Plan: resolved (8) Hx of deep venous thrombosis: Plan: on lovenox 40 mg daily Admission and Anticipated Discharge Date Admission Date: July 25, 2021 Subjective Pt states he is not much better but his stool is slightly forming up, rib pain improved with Lidoderm, is ambulating in room Review of Systems Review of Systems: Mild distress and fatigue no headache, no visual changes no speech or swallowing issues Right-sided chest pain associate with rib fracture, pressure or palpitations no shortness of breath, cough or wheezes no abdominal pain, nausea or vomiting, diarrhea or constipation no dysuria, hematuria or frequency no focal joint pain or swelling no back pain, CVA tenderness or radicular pain Moderate erythema to his lower extremities which is improving no focal signs of weakness or numbness or altered sensation no complaints of anxiety or depression.. Physical Exam Physical Exam: The patient appeared well nourished and normally developed. Vital signs as documented. Head exam is normocephalic atraumatic Neck is without JVD, thyromegaly, or carotid bruits. Lungs are clear to auscultation, no focal loss of breath sounds Cardiac exam, Rhythm is regular.. No murmurs, rubs or gallops. Abdominal exam reveals normal bowel sounds, soft non tender, no masses Extremities are trace edematous and both pedal pulses are present Neurologic exam is alert and oriented, no focal loss of strength or sensation Skin is with venous stasis changes b/l Psychologically is without concerns for anxiety or depression Results & Data Results & Data ([facility]) Vital Signs (Past 12 Hours) Vital Signs Temp Pulse Pulse Resp BP BP Pulse Ox 07/26/21 07:27 97.9 F 85 20 177/71 H 93 07/26/21 07:24 75 07/26/21 02:44 98.4 F 81 16 130/85 92 07/25/21 22:26 94 H PG Care Time/CCT Total # of Minutes Spent Total Time Spent with Patient: Total time spent is greater than 50% in coordination of care (as documented) at patient's floor/unit and/or counseling patient: Coding Level of Care Code 00549 Subseq Hosp Care Lvl 2 Diagnoses Rib pain on right side R07.81 Hx of deep venous thrombosis Z86.718 Chronic steroid use Diabetes mellitus, type 2 E11.9 Hepatic steatosis K76.0 BPH with obstruction/lower urinary tract symptoms N40.1; N13.8 Cellulitis L03.90 Weakness R53.1
[2021-07-26] MEDS ORDERED: DEXTROSE 50% 50 ML SYRINGE IV PRN (11:29)
[2021-07-26] MEDS ORDERED: GLUCOSE 40% GEL 15 GM TUBE PO PRN (11:29)
[2021-07-26] MEDS ORDERED: CARBOHYDRATES FOR HYPOGLYCEMIA PO PRN (11:29)
[2021-07-26] MEDS ORDERED: GLUCOSE 10 TABS/TUBE PO PRN (11:29)
[2021-07-26] MEDS ORDERED: GLUCAGON FOR INJ 1 MG VIAL SQ PRN (11:29)
[2021-07-26] MEDS: INSULIN ASPART 100 UNITS/ML 3 ML PEN SC SCH ×3 (12:34→20:38)
[2021-07-26] MEDS: HYDROCORTISONE SOD 50 MG in SYRINGE 0 ML IV SCH ×2 (12:34→19:31)
[2021-07-26] MEDS ORDERED: OXYBUTYNIN CHLORIDE XL 5 MG TABCR PO SCH (21:00)
[2021-07-26] MEDS ORDERED: ENOXAPARIN INJ 40 MG/0.4 ML SYR SQ SCH (21:00)
[2021-07-26] MEDS ORDERED: LOSARTAN POTASSIUM 50 MG TAB PO SCH (21:00)
[2021-07-26] MEDS ORDERED: ASPIRIN 81 MG ECTAB PO SCH (21:00)
[2021-07-27] MEDS: HYDROCORTISONE SOD 50 MG in SYRINGE 0 ML IV SCH (03:15)
--- NOTE | 2021-07-27 06:45 | Electrocardiogram Report ---
Test Reason : Blood Pressure : / mmHG Vent. Rate : 096 BPM Atrial Rate : 096 BPM P-R Int : 000 ms QRS Dur : 086 ms QT Int : 358 ms P-R-T Axes : 000 -18 022 degrees QTc Int : 452 ms Sinus rhythm with frequent Premature atrial complexes in a pattern of bigeminy Inferior infarct (cited on or before 16-JUL-2021) Abnormal ECG When compared with ECG of 16-JUL-2021 11:33, Premature atrial complexes are now Present Premature ventricular complexes are no longer Present Confirmed by Vamshi Amado ([id number]) on 07/27/2021 6:45:07 AM Referred By: Ana Lindo Confirmed By:Vamshi Amado
[2021-07-27] MEDS: INSULIN ASPART 100 UNITS/ML 3 ML PEN SC SCH ×2 (07:41→11:38)
[2021-07-27] MEDS: LIDOCAINE 5% 1 PATCH TD SCH (07:42)
[2021-07-27] MEDS: GABAPENTIN 300 MG CAP PO SCH (07:43)
[2021-07-27] MEDS: cephALEXin 500 MG CAP PO SCH (07:43)
[2021-07-27] MEDS: rifAMPin 300 MG CAPSULE PO SCH (07:43)
[2021-07-27] MEDS: FINASTERIDE 5 MG TAB PO SCH (07:43)
[2021-07-27] MEDS: HYDROXYCHLOROQUINE SULFATE 200 MG TAB PO SCH (07:44)
[2021-07-27] MEDS: metFORMIN HCL 500 MG TAB PO SCH (07:44)
[2021-07-27] MEDS: POTASSIUM CHLORIDE CRTAB 20 MEQ TABCR PO SCH (07:45)
--- NOTE | 2021-07-27 11:04 | Discharge Summary ---
Date of Service July 27, 2021 Admission HPI Per Admitting Provider Constantino Quiroz is an 80 y/o male w/ PMHx of rheumatoid arthritis (chronic prednisone PO 10mg), hx of osteomyelitis (chronic rifampin), NIDDM and BPH who presents for a week of poor appetite, generalized weakness, diarrhea after 07/19/21 hosp discharge for BLE cellulitis. + intermittent nausea. He has had very poor appetite and decreased sense of taste. His diarrhea is 2-4 episodes/day, liquidly (no mucous or blood), and very foul smelling. It is triggered by eating. + some abdominal bloating, but denies constipation. Denies hx of c diff. He is s/p Pfizer x2. No fever chills. He has R sided rib pain (minimal at rest, but triggered by movement) 2/2 a fall 2 wks ago. ED course: NSS 125/hr. CT abd pelv w/o acute infectious/inflamm findings. + R sided nephrolithiasis and subacute right 8th-9th rib fractures. Principal Diagnosis adrenal insufficiency from illness with chronic steroid use Discharge Exam The patient appeared well Vital signs as documented. Lungs are clear to auscultation and appear unlabored Cardiac exam, Rhythm is regular.. No murmurs, rubs or gallops. Abdominal exam reveals normal bowel sounds, soft non tender, no masses Extremities are nonedematous and both pedal pulses are normal. Neurologic exam is alert and oriented, no focal loss of strength or sensation Skin is improving to LE edema Psychologically is without concerns for anxiety or depression. Discharge Data Allergies Allergy/AdvReac Type Severity Reaction Status Date / Time amoxicillin Allergy Mild lip Verified 07/25/21 17:43 swelling clavulanic acid Allergy Mild lip Verified 07/25/21 17:43 swelling VINCE Inhibitors Allergy Unknown UNKNOWN-PT Verified 07/25/21 17:43 NOT AWARE clarithromycin Allergy Unknown UNKNOWN-PT Verified 07/25/21 17:43 NOT AWARE Sulfa (Sulfonamide Allergy Unknown LIP Verified 07/25/21 17:43 Antibiotics) SWELLING WITH SULFA DRUGS Consultations 07/25/21 20:04 ED Decision to Admit Stat Ordered Studies 07/25/21 16:33 CT abd pelvis wo con Stat Hospital Course (1) Weakness: Pt presented with weakness after recent hospital stay, negative studies for infectious etiologies, complete his Keflex for cellulitis improved dramatically with hydrocortisone diarrhea, negative for C diff, negative for stool cultures at time of discharge (2) Chronic steroid use: pt typially on chronic steroids for RA with recent hospital stay for cellulitis improved with stress coverage (3) Diabetes mellitus, type 2: continue metformin and diet modification (4) Hepatic steatosis: imaging on CT does not show hepatic architecture consistent with steatosis (5) Rib pain on right side: will continue with symptomatic pain relief (6) BPH with obstruction/lower urinary tract symptoms: on finesteride, does have an abnormal urine but negative culture (7) Cellulitis: resolved Total Time Total Time Spent Total Time Spent (In Minutes): It required greater than 30 minutes to prepare this patient for discharge Discharge Plan Discharge Items Patient Disposition: Home - Self-Care Reason For Visit: FATIGUE, POOR APPETITE, DIARRHEA Discharge Diagnosis: weakness, adrenal insufficiency from chronic prednisone use Activity: Resume your previous activity Non-emergency contact: Primary Care Provider Call non-emergency contact if: you have any medication questions and your symptoms worsen Follow-up/Referrals: Ana Lindo, [Primary Care Provider] - Diet: Regular Addtl Attending Provider Instructions: please take 20 mg of prednisone on Wednesday and Wednesday then resume your usual prednisone 10 mg please follow up with DR Lindo this week You likely had a relative low amount of steroids in your system as some times when you are ill, you need a bit more than 10 mg, we gave you some IV and it seemed to make a difference. Pending Studies at Discharge: No Stand-Alone Forms: My [employer], Smoking Cessation Medications and DC Order Prescriptions: Continued hydroxychloroquine 200 mg tablet 200 mg PO DAILY RF: 0 rifampin 300 mg capsule 300 mg PO BID RF: 0 aspirin [Adult Low Dose Aspirin] 81 mg tablet,delayed release (DR/EC) 81 mg PO QPM RF: 0 oxybutynin chloride 10 mg tablet extended release 24hr 10 mg PO QPM Qty: 90 RF: 1 metformin 1,000 mg tablet 1,000 mg PO BID Qty: 180 RF: 1 potassium chloride 20 mEq tablet extended release 20 meq PO DAILY Qty: 90 RF: 1 losartan 100 mg tablet 100 mg PO QPM Qty: 90 RF: 1 gabapentin 300 mg capsule 300 mg PO TID Qty: 90 RF: 5 simvastatin 20 mg tablet 20 mg PO QPM Qty: 90 RF: 1 finasteride [Proscar] 5 mg tablet 5 mg PO QAM Qty: 90 RF: 3 prednisone 10 mg tablet 10 mg PO QAM RF: 0 ofkxlfrxaapp-bwspqoyk-jttudd Tablet 1 tab PO QAM RF: 0 docusate sodium [Stool Softener] 100 mg Capsule 100 mg PO Q OTHER DAY PRN (Reason: Constipation) RF: 0 furosemide 20 mg tablet 20 mg PO DAILY PRN (Reason: .EDEMA) RF: 0 acetaminophen [Tylenol Extra Strength] 500 mg Tablet 1,000 mg PO Q6H PRN (Reason: Pain) RF: 0 alfuzosin [Uroxatral] 10 mg tablet extended release 24 hr 10 mg PO DAILY RF: 0 cephalexin 500 mg capsule 500 mg PO QID 7 Days Qty: 28 RF: 0 Discharge Orders: Discharge Order (Routine); Ordered 07/27/21 Ordered By: Paras Muhammad Admission Data Admit Date/Time: 07/25/21 20:24 Attending Provider: Paras Muhammad Admit Provider: Dionisio Emmanuel Primary Care Provider: Ana Lindo Other Providers: Paras Muhammad Other Interventions: Discharge Summary Assessment (RN) Last Done: 07/27/21 10:38 Coding Level of Care Code D/C DAY MANAGEMENT >30 MINS Diagnoses Weakness R53.1 Chronic steroid use Diabetes mellitus, type 2 E11.9 Hepatic steatosis K76.0 Rib pain on right side R07.81 BPH with obstruction/lower urinary tract symptoms N40.1; N13.8 Cellulitis L03.90
[2021-07-28] MEDS ORDERED: predniSONE 10 MG TABLET PO SCH (09:00)
== END 2021-07-27 12:35 | disposition home or self-care (01) ==
LOC: ED 14:16 → 2W 14:16

== ENCOUNTER 2023-03-08 06:15 | Observation (INO) ==
--- NOTE | 2023-01-27 14:32 | PAT Medication Instructions ---
Medication Instructions Date of Service January 27, 2023 Home Medications Medication Instructions Recorded oxybutynin chloride 15 mg 15 mg PO QPM #90 tabs 04/30/22 tablet,extended release 24 hr simvastatin 20 mg tablet 20 mg PO QAM #90 tabs 08/05/22 BiPap Machine #1 ea 08/10/22 BiPap Supplies #1 ea 08/10/22 losartan 100 mg tablet 100 mg PO QPM #90 tabs 10/14/22 metformin 1,000 mg tablet 1,000 mg PO BID #180 tabs 10/28/22 potassium chloride 20 mEq 20 meq PO QAM #90 tabs 12/29/22 tablet,extended release finasteride 5 mg tablet See Rx Instructions .Route 01/05/23 .COMPLEX #90 tabs aspirin 81 mg tablet,delayed release (Adult Low Dose Aspirin) 81 mg PO HS pgowcuokbzbw-jocggtos-txzgge tablet 1 tab PO QPM oxybutynin chloride 15 mg tablet,extended release 24 hr 15 mg PO QPM Magnesium Zinc Vitamin D 1 tab PO QPM acetaminophen 500 mg tablet 1,000 mg PO Q6H PRN alfuzosin 10 mg tablet,extended release 24 hr (Uroxatral) 10 mg PO QAM ferrous sulfate 325 mg (65 mg iron) tablet 325 mg PO QAM nabumetone 500 mg tablet 500 mg PO QPM simvastatin 20 mg tablet 20 mg PO QAM BiPap Machine BiPap Supplies losartan 100 mg tablet 100 mg PO QPM metformin 1,000 mg tablet 1,000 mg PO BID potassium chloride 20 mEq tablet,extended release 20 meq PO QAM infusion/ arthritis 1 dose IV UD tramadol 50 mg tablet 50 mg PO BID PRN finasteride 5 mg tablet See Rx Instructions .Route .COMPLEX docusate sodium 100 mg capsule (Stool Softener) 100 mg PO Q2D Continue as directed finasteride 5 mg tablet See Rx Instructions .Route .COMPLEX ASK your surgeon for instructions nabumetone 500 mg tablet 500 mg PO QPM ASK your prescriber and surgeon aspirin 81 mg tablet,delayed release (Adult Low Dose Aspirin) 81 mg PO HS infusion/ arthritis 1 dose IV UD DO NOT take the morning of surgery ferrous sulfate 325 mg (65 mg iron) tablet 325 mg PO QAM metformin 1,000 mg tablet 1,000 mg PO BID potassium chloride 20 mEq tablet,extended release 20 meq PO QAM docusate sodium 100 mg capsule (Stool Softener) 100 mg PO Q2D Take morning of surgery With a small sip of water, OTHERWISE NOTHING TO EAT OR DRINK AFTER MIDNIGHT: acetaminophen 500 mg tablet 1,000 mg PO Q6H PRN(if needed) alfuzosin 10 mg tablet,extended release 24 hr (Uroxatral) 10 mg PO QAM simvastatin 20 mg tablet 20 mg PO QAM tramadol 50 mg tablet 50 mg PO BID PRN(if needed) Take evening before surgery rnkhztmwfaxi-qatqublz-hfkpgi tablet 1 tab PO QPM oxybutynin chloride 15 mg tablet,extended release 24 hr 15 mg PO QPM Magnesium Zinc Vitamin D 1 tab PO QPM acetaminophen 500 mg tablet 1,000 mg PO Q6H PRN(if needed) losartan 100 mg tablet 100 mg PO QPM metformin 1,000 mg tablet 1,000 mg PO BID tramadol 50 mg tablet 50 mg PO BID PRN(if needed) Other Notes If you have any questions please call us at [phone] or [phone] or [phone] or [phone]
--- NOTE | 2023-02-02 11:56 | Anesthesiology Consultation ---
Date of Service February 02, 2023 Assessment & Plan (1) Encounter for pre-operative examination: - Check BSG AM DOS - COVID screening: Per assessment on 02/02: No known COVID-19 positive contacts or current COVID-19 related symptoms. Travel screen negative. Patient vaccinated. At surgeon discretion if preop Covid testing being done. - Outpatient joint pathway: Per Amparo at surgeon's office, plan for overnight stay post-op. If surgeon requests review for outpatient joint pathway, patient is not recommended candidate for outpatient joint program from anesthesia standpoint. - Cardiology office visit (01/09/22): "This is an 81-year-old male who has a history of diabetes mellitus, hypertension, hypercholesterolemia as well as a history of osteomyelitis in his cervical spine with resultant neuropathy. He also has peripheral neuropathy and burned his toe in September 2021 without realizing it, he has had a lot of difficulty with wound healing and is scheduled for hyperbaric therapy.. Possible inferior myocardial infarction: His electrocardiogram suggest an inferior myocardial infarction which took place between July 22, 2018 and July 16, 2021. The electrocardiographic pattern is not diagnostic and this could be an axis shift. He is scheduled for a dobutamine echo which should identify wall motion normalities or a prior myocardial infarction. He does not have symptoms and he is treated with statin therapy with a reasonable cholesterol profile therefore I would just continue risk factor modification currently.. Hyperbaric oxygen therapy: I do not see a contraindication to hyperbaric therapy and would proceed." DSE done 01/14/22 was unremarkable. Cardio advised for patient to f/u as needed. - PCP office visit (01/21/23): "Diabetes mellitus, type 2:Plan: well controlled. Continue diet, current medications, and glucose monitoring.. On statin therapy.. Diabetes with neurologic complications:Plan: Struggles with control. Established with Neurology. Tapered off Lyrica and Cymbalta, and gabapentin.. Continue care per neurology.. Diabetic neuropathy:Plan: as above.. Hypertension:Plan: Fair control, his amlodipine has been on hold d/t hypotension He will continue osartan as directed.. Urinary incontinence:Plan: Variable.. continue oxybutynin 15mg daily.. continue proscar and uroxatral as rxdsee urology in f/u.. Venous insufficiency (chronic) (peripheral): Plan: stable today, s/p L GSV ablation on 08/01/2021.. continue care per vascular.. Psoriatic arthropathy:Plan: Variable, off enbrel d/t h/o osteomyelitis, stopped otezla d/t cost, no longer on chronic prednisone therapy.. Reports starting new infusion---wll obtain last rheumatology notes.. he will continue nabumetone and care per rheumatology.. Chronic anemia:Plan: stable related to chronic disease, continue to monitor... History of osteomyelitis:Plan: dx April 2020, cervical spine, s/p laminectomy on 04/25/2020, s/p IV abx.. Severe obstructive sleep apnea:Plan: Not at goal, had sleep study in Aug 2022, noting sleep apnea.. encouraged to continue w/ Bipap,care per sleep medicine.. Nocturnal hypoxemia.. as above" - Hx difficult intubation * History of difficult intubation in 2007 at [facility]. Per record review they were unable to intubate on 3 attempts. Fast track LMA were unsuccessful. Were able to mask vent with 2 people. Intubated with nasal fiberoptic. * Anesthesia records from 2018 kirk ureña showed Grade 1 view with Glidescope #4, smooth intubation * Right shoulder arthroscopy, RCR (12/11/21): LMA#5 placed without difficulty + PNB at [facility] Chart Review Chart Review: Acceptable Risk for Surgery (pending evaluation AM DOS) and Patient seen in Pre Admission Testing Teaching & Discussion Pre-Anesthesia Teaching/Discussion Notes: Instructed NPO after midnight before surgery,except medications with 15 cc of water. Medication instructions provided according to the PAT guidelines. History Surgery Operation Date: 03/08/23 07:00 Proposed Procedures p Right Reverse Total Shoulder Arthroplasty - Efraín Valentine, Height/Weight Height: 5 ft 5 in Weight: 82.4 kg Allergies Allergy/AdvReac Type Severity Reaction Status Date / Time amoxicillin Allergy Mild lip Verified 12/31/22 10:05 swelling clavulanic acid Allergy Mild lip Verified 12/31/22 10:05 swelling VINCE Inhibitors Allergy Unknown unknown Verified 02/02/23 13:07 Sulfa (Sulfonamide Allergy Unknown lip Verified 02/02/23 13:07 Antibiotics) swelling clarithromycin AdvReac Intermediate GI upset Verified 02/02/23 13:07 Medications Home Medications Medication Instructions Recorded Confirmed Last Taken aspirin 81 mg tablet,delayed 81 mg PO HS 06/29/18 01/27/23 12/10/21 18:00 release (Adult Low Dose Aspirin) juyvuezkdjqo-wadxswvu-kpvxqs tablet 1 tab PO QPM 09/05/20 01/27/23 12/10/21 08:00 oxybutynin chloride 15 mg 15 mg PO QPM #90 tabs 04/30/22 01/27/23 Unknown tablet,extended release 24 hr Magnesium Zinc Vitamin D 1 tab PO QPM 08/04/22 01/27/23 Unknown acetaminophen 500 mg tablet 1,000 mg PO Q6H PRN Pain 08/04/22 01/27/23 Unknown alfuzosin 10 mg tablet,extended 10 mg PO QAM 08/04/22 01/27/23 Unknown release 24 hr (Uroxatral) ferrous sulfate 325 mg (65 mg 325 mg PO QAM 08/04/22 01/27/23 Unknown iron) tablet nabumetone 500 mg tablet 500 mg PO QPM 08/04/22 01/27/23 Unknown BiPap Machine #1 ea 08/10/22 01/27/23 Unknown BiPap Supplies #1 ea 08/10/22 01/27/23 Unknown losartan 100 mg tablet 100 mg PO QPM #90 tabs 10/14/22 01/27/23 Unknown metformin 1,000 mg tablet 1,000 mg PO BID #180 tabs 10/28/22 01/27/23 Unknown potassium chloride 20 mEq 20 meq PO QAM #90 tabs 12/29/22 01/27/23 Unknown tablet,extended release infusion/ arthritis 1 dose IV UD 12/31/22 01/27/23 Unknown tramadol 50 mg tablet 50 mg PO BID PRN Pain 12/31/22 01/27/23 Unknown finasteride 5 mg tablet See Rx Instructions .Route 01/05/23 01/27/23 Unknown .COMPLEX #90 tabs docusate sodium 100 mg capsule 100 mg PO Q2D 01/21/23 01/27/23 Unknown (Stool Softener) simvastatin 20 mg tablet 20 mg PO QAM #90 tabs 02/01/23 Unknown Past Medical History Medical History BPH with obstruction/lower urinary tract symptoms Chronic anemia Chronic/stable, PCP monitoring Chronic back pain Depression Diabetes mellitus, type 2 NIDDM - controlled Diabetic neuropathy hands and feet 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 DVT (deep venous thrombosis) RLE (10 years ago), unknown etiology GERD (gastroesophageal reflux disease) Well controlled, stable Hepatic steatosis Hiatal hernia History of compression fracture of spine 2019, had cervical laminectomy 04/2020, no recent issues History of osteomyelitis cervical spine (2019) Hx of diabetic foot ulcer resolved (2021) Hyperlipidemia Hypertension controlled, stable per pt [facility] (obstructive sleep apnea) Could not tolerate BIPAP Psoriatic arthropathy Does use prednisone- possibly weaning off prior to surgery Urinary incontinence Exercise / Class Metabolic Activity III < 4 Walking/Shop/Light housework (No regular stair use, no CP or SOB with daily activities) Past Family History Family History Mother Cardiac disorder Myocardial infarction Aunt Family history of diabetes mellitus Uncle Family history of diabetes mellitus Other No family history of adverse response to anesthesia Denies family history of Ovarian cancer Prostate cancer Breast cancer Colorectal cancer Past Surgical History Surgical History H/O bilateral cataract extraction H/O elbow surgery R/L History of colonoscopy History of tonsillectomy Hx of difficult intubation - History of difficult intubation in 2007 at [facility]. Per record review they were unable to intubate on 3 attempts. Fast track LMA were unsuccessful. Were able to mask vent with 2 people. Intubated with nasal fiberoptic. - Anesthesia records from 2018 lap adelita showed Grade 1 view with Glidescope #4, smooth intubation - Right shoulder arthroscopy, RCR (12/11/21): LMA#5 placed without difficulty + PNB at [facility]. 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 S/P arthroscopy of right shoulder 12/2021 S/P arthroscopy of shoulder (01/2016) Left S/P hammer toe correction (11/2013) arthrodesis R toe S/P laminectomy (04/25/20) Cervical S/P laparoscopic cholecystectomy (07/2018) S/P left knee arthroscopy (10/2015) S/P rotator cuff repair Left Status post carpal tunnel release of both wrists Past Anesthesia History Difficult Airway, No Family Hx of Anesthesia Complications and Other - Hx difficult intubation - History of difficult intubation in 2007 at [facility]. Per record review they were unable to intubate on 3 attempts. Fast track LMA were unsuccessful. Were able to mask vent with 2 people. Intubated with nasal fiberoptic. - Anesthesia records from 2018 lap adelita showed Grade 1 view with Glidescope #4, smooth intubation - Right shoulder arthroscopy, RCR (12/11/21): LMA#5 placed without difficulty + PNB at [facility]. - Nerve block - Patient reports hx of severe soreness/pain after nerve block placement with prior arm surgery. History of PONV No Hx of PONV and No Hx of Motion Sickness Social History Smoking Status: Former smoker tobacco type: cigarettes Do You Dip or Chew Tobacco: No Smoking End Date: Quit >35 yrs ago (hx 2ppd) Hx Alcohol Use: No Hx Substance Use: No substance use type: does not use Review of Systems Patient denies chest pain, shortness of breath, fever, chills, cough, wheezing, palpitations. Physical Exam Vital Signs VITALS BP 131/75 P 69 TEMP 98.4 SP02 95%RA RESP 16 PHYSICAL Significantly decreased cervical extension range of motion. Full TMJ range of motion. TMD 3 finger breaths Mallampati Score 4 Dentition: upper full dentures, lower denture with implants Lungs: clear throughout to auscultation Cardiac: regular rate and rhythm with occasional extra beat, no murmurs noted Spine: normal Carotid arteries: negative bruit Extremities: no edema Lab Results Anesthesia Preop Results Results Anesthesia Widget: WBC 6.04 K/ul (4.8-10.8) 01/21/23 Hgb 10.5 g/dl (14.0-18.0) L 01/21/23 Hct 33.2 % (42.0-52.0) L 01/21/23 Plt 278 K/uL (130-400) 01/21/23 Na 138 mmol/L (136-145) 01/21/23 K 4.4 mmol/L (3.5-5.1) 01/21/23 Cl 104 mmol/L (98-107) 01/21/23 CO2 27 mmol/L (21-32) 01/21/23 BUN 29 mg/dl (6-23) H 01/21/23 Creat 1.00 mg/dl (0.6-1.4) 01/21/23 Glucose Level 104 mg/dl (70-99(Fasting)) H 01/21/23 PT 10.9 Seconds (9.0-12.0) 02/02/23 PTT 25.3 Seconds (21.0-31.0) 02/02/23 INR 1.0 (0.9-1.1) 02/02/23 TSH 3.739 uIu/ml (0.300-4.500) 01/21/23 HA1c 5.8 % (4.5-5.6) H 01/21/23 Urine Color Yellow 01/21/23 Urine Appearance Clear (Clear) 01/21/23 Urine pH 5.0 (4.5-7.5) 01/21/23 Urine Specific Rice 1.019 (1.000-1.030) 01/21/23 Urine Protein Negative (Negative) 01/21/23 Urine Glucose (UA) Negative (Negative) 01/21/23 Urine Ketones Negative (Negative) 01/21/23 Urine Blood Negative (Negative) 01/21/23 Urine Nitrite Negative (Negative) 01/21/23 Urine Bilirubin Negative (Negative) 01/21/23 Urine Urobilinogen Negative (Negative) 01/21/23 Urine Leukocyte Esterase 1+ (Negative) H 01/21/23 Urine WBC (Auto) 5-10 /hpf (0-5) H 01/21/23 Urine RBC (Auto) 0-4 /hpf (0-4) 01/21/23 Urine Hyaline Casts (Auto) 1-5 /lpf (0-5) 01/21/23 Urine Epithelial Cells (Auto) 10-20 /lpf (0-5) H 01/21/23 Urine Bacteria (Auto) Negative (Negative) 01/21/23 Blood Type A Positive 02/02/23 Antibody Screen NEGATIVE 02/02/23 Testing Electrocardiogram Date: 02/02/23 SR with PSVCs at 77bpm. Chest X-Ray Date: 04/27/22 FINDINGS: No lines and tubes are seen. Cardiomegaly is noted. Calcification of the aortic arch is seen. The lungs are clear. No evidence of pleural effusion or pneumothorax. IMPRESSION: No acute chest disease. Echocardiogram Date: 07/19/21 EF 55-60%. LV wall motion is normal. Mild LAD. Mild RVD. Mild to moderate TR. RVSP elevated at 40-50 mmHg. Stress Test Date: 01/14/22 Pharmacologic Negative DSE/ECG for myocardial ischemia MPHR 92% EF 60-65% No LV wall motion abnormalities Moderate cLVH Mildly dilated RV Borderline dilated LA Mild tricuspid regurgitation Other Testing Holter 02/16/22 Sinus rhythm, average HR 82 bpm. Min 55 bpm. Max 141 bpm. No significant pauses or AV block. Frequent isolated and couplet APD noted. Frequent isolated non- sustained episodes of atrial tachycardia seen. Atrial arrhythmia comprised 31.5% of recorded beats Isolated VPDs and couplets noted COVID-19 Risk Screen Screening Information COVID-19 Screen Date: 02/02/23 Exposure 21 Days Family/Household +COVID Last 21 Days: No Exposure 10 Days Any COVID Exposure Last 10 Days: No Symptoms Last 10 Days Experienced COVID Sx Last 10 Days: No + COVID 0-90 Days COVID + in Last 0-90 Days: No
--- NOTE | 2023-03-04 13:40 | History & Physical Report ---
Date of Service March 04, 2023 Assessment & Plan (1) Rotator cuff arthropathy of right shoulder: We will proceed with a right reverse shoulder arthroplasty. Postoperatively he will be placed in a sling and kept overnight in the hospital for postop medical management. He plans to [facility] upon discharge. History of Present Illness Chief Complaint: Cuff tear arthropathy of the right shoulder. Primary Care Provider: Ana Lindo DO Constantino is an 82-year-old male who I did a large rotator cuff repair on about a year ago. Unfortunately, he is not doing well postoperatively. He is still having trouble doing forward elevation. He has an obvious retear of his rotator cuff. Followup x-rays showed advancing arthritis of the shoulder. I did send him for a followup MRI and this showed a massive retracted rotator cuff tear. There were no signs of infection. After failing extensive conservative treatment, he has elected to proceed with a right reverse shoulder arthroplasty. . Allergies Allergy/AdvReac Type Severity Reaction Status Date / Time amoxicillin Allergy Mild lip Verified 12/31/22 10:05 swelling clavulanic acid Allergy Mild lip Verified 12/31/22 10:05 swelling IVNCE Inhibitors Allergy Unknown unknown Verified 02/02/23 13:07 Sulfa (Sulfonamide Allergy Unknown lip Verified 02/02/23 13:07 Antibiotics) swelling clarithromycin AdvReac Intermediate GI upset Verified 02/02/23 13:07 Home Medications Medication Instructions Recorded Confirmed Type aspirin 81 mg tablet,delayed 81 mg PO HS 06/29/18 02/18/23 History release (Adult Low Dose Aspirin) olyjnijoljxn-ypqtuina-ripmsg tablet 1 tab PO QPM 09/05/20 02/18/23 History Magnesium Zinc Vitamin D 1 tab PO QPM 08/04/22 02/18/23 History acetaminophen 500 mg tablet 1,000 mg PO Q6H PRN Pain 08/04/22 02/18/23 History ferrous sulfate 325 mg (65 mg 325 mg PO QAM 08/04/22 02/18/23 History iron) tablet nabumetone 500 mg tablet 500 mg PO QPM 08/04/22 02/18/23 History BiPap Machine #1 ea 08/10/22 02/18/23 Rx BiPap Supplies #1 ea 08/10/22 02/18/23 Rx losartan 100 mg tablet 100 mg PO QPM #90 tabs 10/14/22 02/18/23 Rx metformin 1,000 mg tablet 1,000 mg PO BID #180 tabs 10/28/22 02/18/23 Rx potassium chloride 20 mEq 20 meq PO QAM #90 tabs 12/29/22 02/18/23 Rx tablet,extended release infusion/ arthritis 1 dose IV UD 12/31/22 02/18/23 History tramadol 50 mg tablet 50 mg PO BID PRN Pain 12/31/22 02/18/23 History docusate sodium 100 mg capsule 100 mg PO Q2D 01/21/23 02/18/23 History (Stool Softener) simvastatin 20 mg tablet 20 mg PO QAM #90 tabs 02/01/23 02/18/23 Rx alfuzosin 10 mg tablet,extended 10 mg PO DAILY #90 tabs 02/18/23 02/18/23 Rx release 24 hr (Uroxatral) finasteride 5 mg tablet 5 mg PO DAILY #90 tabs 02/18/23 02/18/23 Rx oxybutynin chloride 15 mg 15 mg PO DAILY #90 tabs 02/18/23 02/18/23 Rx tablet,extended release 24 hr Past Med/Surg History Medical History BPH with obstruction/lower urinary tract symptoms Chronic anemia Chronic/stable, PCP monitoring Chronic back pain Depression Diabetes mellitus, type 2 NIDDM - controlled Diabetic neuropathy hands and feet 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 DVT (deep venous thrombosis) RLE (10 years ago), unknown etiology GERD (gastroesophageal reflux disease) Well controlled, stable Hepatic steatosis Hiatal hernia History of compression fracture of spine 2019, had cervical laminectomy 04/2020, no recent issues History of osteomyelitis cervical spine (2019) Hx of diabetic foot ulcer resolved (2021) Hyperlipidemia Hypertension controlled, stable per pt TAYLOR (obstructive sleep apnea) Could not tolerate BIPAP Psoriatic arthropathy Does use prednisone- possibly weaning off prior to surgery Urinary incontinence Surgical History H/O bilateral cataract extraction H/O elbow surgery R/L History of colonoscopy History of tonsillectomy Hx of difficult intubation - History of difficult intubation in 2007 at [facility]. Per record review they were unable to intubate on 3 attempts. Fast track LMA were unsuccessful. Were able to mask vent with 2 people. Intubated with nasal fiberoptic. - Anesthesia records from 2018 lap adelita showed Grade 1 view with Glidescope #4, smooth intubation - Right shoulder arthroscopy, RCR (12/11/21): LMA#5 placed without difficulty + PNB at [facility]. 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 S/P arthroscopy of right shoulder 12/2021 S/P arthroscopy of shoulder (01/2016) Left S/P hammer toe correction (11/2013) arthrodesis R toe S/P laminectomy (04/25/20) Cervical S/P laparoscopic cholecystectomy (07/2018) S/P left knee arthroscopy (10/2015) S/P rotator cuff repair Left Status post carpal tunnel release of both wrists Family History Mother Cardiac disorder Myocardial infarction Aunt Family history of diabetes mellitus Uncle Family history of diabetes mellitus Other No family history of adverse response to anesthesia Denies family history of Ovarian cancer Prostate cancer Breast cancer Colorectal cancer Social History Smoking Status: Former smoker Tobacco Type: Cigarettes Second Hand Exposure: No; Do You Dip or Chew Tobacco: No; Hx Alcohol Use: No Hx Substance Use: No Preferred Language: Chinese Communication Ability: Effective Visual Impairment: Limited Hearing Ability: Normal Game Warden Required: No Beliefs That Will Affect Care: None marital status: Current Living Situation: Spouse current occupational status: retired How many Children do You have: 4 How many Children do You have Comment: and one son are local and able to assist with care as needed. Other children live further away. Feels Safe at Home: Yes Diet: regular caffeine: Yes during the past year weight has: increased > 10 lbs Dental Care, Regularly: Yes Physical Activity Frequency: Daily Seatbelt Use: always Sunscreen Use: Yes Assistive Devices: Cane, Denture - Upper, Denture - Lower, Glasses and Walker Review of Systems All systems reviewed & are unremarkable except as noted in HPI & below. Physical Exam On physical examination of the right shoulder, he has decreased range of motion weakness throughout. He has pain over the glenohumeral joint line.. Constitutional WD/WN, vitals as above Eyes PERRL, conjunctivae normal, anicteric sclerae ENMT external ear and nose normal, oropharynx normal Neck trachea midline, no thyromegaly Respiratory normal respiratory effort, lungs clear to auscultation Cardiovascular RRR, no murmur, no edema Gastrointestinal (Abdomen) normal bowel sounds, soft, nontender, no hepatosplenomegaly Skin no rashes, warm and dry Psychiatric A+Ox3, euthymic affect Results & Data Results & Data Laboratory Results . Diagnostic Findings X-rays of the right shoulder show signs of cuff tear arthropathy with some glenohumeral arthritis and superior migration of the humeral head of the glenoid. MRI of the right shoulder shows a massive retracted rotator cuff tear.. PG Care Time/CCT Total # of Minutes Spent Total Time Spent with Patient: Total time spent is greater than 50% in coordination of care (as documented) at patient's floor/unit and/or counseling patient: Coding Level of Care Code None Diagnoses Rotator cuff arthropathy of right shoulder M12.811
[~2023-03-08 06:15] MED LIST changes: +ACETAMINOPHEN 500 MG TAB PO SCH; +ALLERGY Noted to ORDERED Medication SCH; -ASPI-461 PO; -CALC-416 PO; -CIPR1TAB11 PO; -CYM/30 PO; +FAMOTIDINE 20 MG TAB PO SCH; -FLV1 PO; -GABA-1693 PO; +GABAPENTIN 300 MG CAP PO SCH; +LR 15ML/HR IV SCH; +LR 60ML/HR IV SCH; -LYR/50 PO; -METF-384 PO; -MTH25 PO; -MULT-506 PO; +ORTHO JOINT MIX INFIL SCH; -PRED-301 PO; -PRED10TA PO; -SIMV10TA2 PO; -SOLI5TAB2 PO; +TRANEXAMIC ACID 1,000 MG **IV Intra-op IV SCH; +TRANEXAMIC ACID 1,000 MG **IV Pre-op IV SCH; -VALS320T2 PO; +ceFAZolin 2000MG 2,000 MG/15 ML SYR IV SCH; +dexAMETHasone 4 MG TAB PO SCH
[2023-03-08] MEDS ORDERED: BUPIVACAINE 0.5 % 5 MG/1 ML PF 10ML VIAL ONE (06:31)
[2023-03-08] MEDS ORDERED: Nursing to Pharmacy Communication SCH (07:45)
[2023-03-08] MEDS ORDERED: fentaNYL citrate PF 100 MCG/2 ML VIAL ONE (08:07)
[2023-03-08] MEDS ORDERED: ATROPINE SULFATE 0.1 MG/ML 10ML SYR IV PRN (08:08)
[2023-03-08] MEDS ORDERED: fentaNYL citrate PF 100 MCG/2 ML VIAL IV PRN (08:08)
[2023-03-08] MEDS ORDERED: ePHEDrine sulfate 50 MG/ML AMP IV PRN (08:08)
[2023-03-08] MEDS ORDERED: ONDANSETRON INJ 2 MG/ML 2 ML VIAL IV PRN ×2 (08:08→11:18)
--- NOTE | 2023-03-08 08:18 | History & Physical Bridge Note ---
Date of Service March 08, 2023 History & Physical Bridge Note I have examined the patient, reviewed the History & Physical and in the interval since the performance of the History & Physical I have noted the following changes of clinical significance: no changes noted
[2023-03-08] MEDS ORDERED: ORTHO JOINT ANESTHETIC ONE (08:28)
[2023-03-08] MEDS ORDERED: PHENYLEPHRINE HCL 10 MG/ML VIAL ONE (08:38)
[2023-03-08] MEDS ORDERED: ONDANSETRON INJ 2 MG/ML 2 ML VIAL ONE (08:38)
[2023-03-08] MEDS ORDERED: PROPOFOL IV EMULSION 10 MG/ML 20 ML VIAL IV ONE (08:38)
--- NOTE | 2023-03-08 10:14 | Operative Report ---
PG Post Operative Report Pre & Post Diagnosis Operation Date: 03/08/23 08:40 Pre-Op Diagnosis: Cuff tear arthropathy of the right shoulder Post-Op Diagnosis: Cuff tear arthropathy of the right shoulder I identified the patient and participated in the time-out.: Yes Procedure Operation Date: 03/08/23 08:40 Actual Procedures p Right Reverse Total Shoulder Arthroplasty(Right) - Efraín Valentine DO Surgeon Efraín Valentine DO Pencil Sorter Efraín Corona PA-C Estimated Blood Loss 150 Findings Consistent with Post-Op Diagnosis Specimens Right humeral head Description of Procedure A CPT code modifier 59: The long head of the biceps tendon was enlarged and inflamed consistent with tendinopathy. A tenodesis was opted. This was a separate and distinct portion of the procedure. For these reasons, a CPT code modifier 59 will be added to this case. Implants used: I used a Biomet Comprehensive reverse total shoulder arthroplasty system with a size 11 press fit micro humeral stem, a +6 offset humeral tray and a standard humeral bearing, a 25 mm large augment baseplate with a 6.5 mm central screw and superior and inferior locking screws, and a size 40 mm eccentric glenosphere. Constantino arrived at [facility] for the above procedure. He was seen in the preoperative holding area and the operative extremity was identified and signed. He was given a preoperative antibiotic, TXA, and an interscalene nerve block. He was taken back to the operating room, laid on table in supine position, and put under general anesthesia. He was then put into the beachchair position. The shoulder was then prepped and draped in sterile fashion. A timeout was done and the patient and the operative extremity was properly identified. A deltopectoral approach was used. Dissection was taken down through the fascia and the deltoid was retracted laterally and the conjoined tendon was retracted medially. The anterior shoulder was exposed. The biceps tendon was tenodesed from a previous procedure. The subscapularis was then directly released off the lesser tuberosity with a peel technique. The inferior capsule was released and the humeral head was dislocated. A canal finding reamer was sent down the center of the humeral canal. Sequential reaming up to a size 11 reamer was done. Off that reamer, a proximal humeral resection guide was placed. The proximal humerus was resected at 135 of inclination and 25 of retroversion. Osteophytes were then removed and the glenoid was exposed. Time was spent doing a complete capsular and labral release. The glenoid guide was then placed in the inferior aspect of the glenoid. A 3.2 mm Steinmann pin was then placed into the glenoid vault at 10 of inclination. The glenoid baseplate was then reamed. The final size 25 mm large augment baseplate was then impacted in the place. A 6.5 mm central screw was then placed followed by superior and inferior locking screws. A 40 mm eccentric glenosphere was then impacted into place. Surrounding soft tissues were then injected with 100 cc an orthopedic pain control cocktail. The proximal humerus was then exposed. Sequential broaching of the humerus up to a size 11 broach was done. Off that broach a +6 offset humeral tray was trialed. The shoulder was then reduced, brought through a full range of motion, and felt to be stable. The shoulder was then dislocated and the broach was removed. The final size 11 micro press-fit humeral stem was then impacted into place. A standard humeral bearing was then snapped onto a +6 offset humeral tray. The humeral tray was then impacted onto the humeral stem. The shoulder was once again reduced, brought through a full range of motion, and felt to be stable. The subscapularis was then tenodesed back to the lesser tuberosity with transosseous FiberWire sutures and side to side sutures with the arm in 45 of external rotation. A dilute betadyne lavage was then done for 3 minutes. The joint was then irrigated with normal saline solution. Hemostasis was obtained. The interval was closed with 2-0 Vicryl suture. The skin was then closed with 2-0 Vicryl and cathy. A Silverlon dressing was placed and the arm was rested in a regular arm sling. He was then extubated and transferred to a hospital bed. He taken to the postanesthesia care unit in stable condition. He tolerated the procedure well. Efraín Ortega PA-C, was present for the entire procedure. He was critical for patient positioning, prepping, draping, retraction exposure, wound closure and application of sterile dressing. I attest to the content of the Intraoperative Record and any orders documented therein. Any exceptions are noted below.
[2023-03-08] MEDS ORDERED: LIDOCAINE 2% 2 ML VIAL/AMP(20MG/ML) INFIL ONE (10:15)
[2023-03-08] MEDS ORDERED: ePHEDrine sulfate 50 MG/ML SYR ONE (10:35)
--- NOTE | 2023-03-08 10:53 | Anesthesiology Progress Note ---
Date of Service March 08, 2023 Anesthesia Post Procedure Vital Signs Vital Signs: Temp Pulse Resp BP Pulse Ox O2 Del Method O2 Flow Rate 03/08/23 10:45 83 20 144/83 H 94 Room Air 03/08/23 10:35 86 14 172/97 H 97 Oxymask 7 03/08/23 10:28 97.2 F L 84 16 179/94 H 97 Oxymask 7 03/08/23 07:07 98.2 F 54 L 20 194/87 H 94 Room Air Pain Intensity Right Shoulder: Pain Intensity: 0 Transfer of Care Handoff Completed per policy Notes Mental Status: alert / awake / arousable and participated in evaluation Patient Amnestic to Procedure: Yes Nausea / Vomiting: adequately controlled Pain: adequately controlled Airway Patency, RR, SpO2: stable & adequate BP & HR: stable & adequate Hydration State: stable & adequate Anesthetic Complications: no major complications apparent and Pt Satisfied with anesthetic care
[2023-03-08] MEDS ORDERED: KETOROLAC TROMETHAMINE 15 MG/ML VIAL IV SCH (11:18)
[2023-03-08] MEDS ORDERED: MAGNESIUM HYDROXIDE SUSP 30 ML UDC PO PRN (11:18)
[2023-03-08] MEDS ORDERED: oxyCODONE HCL IR 5 MG TAB (IMMEDIATE RELEASE) PO PRN (11:18)
[2023-03-08] MEDS ORDERED: PHARMACY GLYCEMIC MGMT CONSULT PRN (11:18)
[2023-03-08] MEDS ORDERED: NALOXONE HCL 0.4 MG/1 ML VIAL/CARP IV PRN (11:18)
[2023-03-08] MEDS ORDERED: bisacodyL 10 MG SUPP PR PRN (11:18)
[2023-03-08] MEDS ORDERED: METOCLOPRAMIDE HCL INJ 5 MG/ML 2 ML VIAL IV PRN (11:18)
[2023-03-08] MEDS ORDERED: HYDROmorphone INJ 0.5 MG/0.5 ML SYR IV PRN (11:18)
[2023-03-08] MEDS ORDERED: CARBOHYDRATES FOR HYPOGLYCEMIA PO PRN (11:45)
[2023-03-08] MEDS ORDERED: DEXTROSE 50% 50 ML SYRINGE IV PRN (11:45)
[2023-03-08] MEDS ORDERED: GLUCOSE 10 TAB/TUBE PO PRN (11:45)
[2023-03-08] MEDS ORDERED: GLUCAGON FOR INJ 1 MG VIAL IM PRN (11:45)
[2023-03-08] MEDS ORDERED: GLUCOSE 40% GEL 15 GM TUBE PO PRN (11:45)
[2023-03-08] MEDS ORDERED: NovoLIN-N (NPH) PER UNIT CHARGE SQ ONE (12:00)
[2023-03-08] MEDS: INSULIN ASPART PER UNIT CHARGE SC SCH ×3 (12:57→22:18)
[2023-03-08] MEDS: ACETAMINOPHEN 500 MG TAB PO SCH ×2 (13:00→22:22)
[2023-03-08] MEDS: SODIUM CHLORIDE 0.9% 1000ML 1,000 ML IV SCH (13:08)
--- NOTE | 2023-03-08 13:16 | Pharmacy Report ---
Pharmacy Glycemic Short Note 2 - Date of Service March 08, 2023 - Glycemic Short BSG Results (Last 24 hours): 03/08/23 03/08/23 03/08/23 07:22 10:34 11:57 POC Glucose 109 H 151 H 146 H OUTPATIENT ANTIDIABETIC REGIMEN: * Metformin 1000 mg PO BID * HbA1C = 5.8% (01/21/23) ASSESSMENT: * Mr Quiroz is an 82 y/o M with a PMH of T2DM who had R shoulder surgery today. Patient received dexamethasone 8 mg PO preop. * Preop BSG was 109 mg/dL and post-op was 146 mg/dL. * Will give NPH 25 units SQ x 1 (~0.4 units/kg of adjusted body weight) for steroid-induced hyperglycemia. * Novolog weight-based stress of 3. PLAN FOR INPATIENT GLYCEMIC CONTROL: * Hold outpatient oral diabetes medications * Basal insulin * NPH 25 units SQ x 1 * Bolus insulin * NovoLog per scale ACHS or Q6hrs while NPO * Goal Range: Low 110 mg/dL - High 140 mg/dL * Correction Factor: 20 mg/dL/unit * Nutritional / Prandial insulin per carb ratio of 1 unit per 6 grams CHO consumed
--- NOTE | 2023-03-08 13:30 | XRay Report ---
XR shoulder RT min 2V routine CLINICAL HISTORY: Post shoulder surgery TECHNIQUE: 3 views of the right shoulder were obtained. Comparison: Comparison is made to right shoulder MRI 06/26/2022 FINDINGS: Patient is status post shoulder arthroplasty with expected postsurgical changes including soft tissue swelling and subcutaneous emphysema. No periarticular lucency or hardware fracture is seen. IMPRESSION: Expected postoperative appearance status post placement of shoulder arthroplasty. ACT 112: Negative or not required by law. Electronically signed by: Simon Hines M.D. 03/08/2023 1:29 PM
[2023-03-08] MEDS: ceFAZolin 2000MG 2,000 MG/15 ML SYR IV SCH (17:48)
[2023-03-08] MEDS ORDERED: NABUMETONE 500 MG TABLET PO SCH (21:00)
[2023-03-08] MEDS ORDERED: SENNA 8.6 MG TAB PO SCH (21:00)
[2023-03-08] MEDS ORDERED: ASPIRIN 81 MG ECTAB PO SCH (21:00)
[2023-03-08] MEDS ORDERED: CEROVITE ADV FORMULA TAB PO SCH (21:00)
[2023-03-08] MEDS ORDERED: LOSARTAN POTASSIUM 50 MG TAB PO SCH (21:00)
[2023-03-08] MEDS: DOCUSATE SODIUM 100 MG CAP PO SCH (22:18)
[2023-03-09] MEDS: SODIUM CHLORIDE 0.9% 1000ML 1,000 ML IV SCH (00:14)
[2023-03-09] MEDS: ceFAZolin 2000MG 2,000 MG/15 ML SYR IV SCH (01:39)
[2023-03-09] MEDS: ACETAMINOPHEN 500 MG TAB PO SCH (05:46)
--- NOTE | 2023-03-09 06:37 | Orthopedic Progress Note ---
Date of Service March 09, 2023 Assessment & Plan (1) Status post reverse total replacement of right shoulder: Overall he is doing very well. He is not having much pain in the right shoulder. He will be seen by physical therapy today for ambulation and range of motion exercises. He can be discharged home later today. He will follow-up with orthopedics in 2 weeks. Josephine Meeks was seen and examined at bedside this morning. Overall he is doing very well. He is not having much pain in the right shoulder. He was able to get some sleep last night. He has no complaints.. Review of Systems All systems reviewed & are unremarkable except as noted in HPI & below. Physical Exam On physical examination of the right shoulder, the dressing is clean and dry. He is wearing his sling as instructed. The nerve block has mostly worn off.. Results & Data Results & Data Laboratory Results . Diagnostic Findings Postoperative x-rays of the right shoulder show the prosthesis to be in anatomic alignment without any evidence of fracture, screws, or loosening. PG Care Time/CCT Total # of Minutes Spent Total Time Spent with Patient: Total time spent is greater than 50% in coordination of care (as documented) at patient's floor/unit and/or counseling patient: Coding Level of Care Code 87507 Post Operative Follow-Up Diagnoses Status post reverse total replacement of right shoulder Z96.611
--- NOTE | 2023-03-09 06:39 | Discharge Summary ---
Date of Service March 09, 2023 Admission HPI (Per Admitting) Constantino is an 82-year-old male who I did a large rotator cuff repair on about a year ago. Unfortunately, he is not doing well postoperatively. He is still having trouble doing forward elevation. He has an obvious retear of his rotator cuff. Followup x-rays showed advancing arthritis of the shoulder. I did send him for a followup MRI and this showed a massive retracted rotator cuff tear. There were no signs of infection. After failing extensive conservative treatment, he has elected to proceed with a right reverse shoulder arthroplasty. . Admission Exam (Per Admitting) On physical examination of the right shoulder, he has decreased range of motion weakness throughout. He has pain over the glenohumeral joint line.. Principal Diagnosis Same as "Discharge Diagnosis" noted below under Discharge Instructions. Discharge Exam On physical examination of the right shoulder, the dressing is clean and dry. He is wearing his sling as instructed. The nerve block has mostly worn off.. Discharge Data Procedures Performed Operation Date: 03/08/23 08:40 Actual Procedures p Right Reverse Total Shoulder Arthroplasty(Right) - Efraín Valentine DO Ordered Studies 03/08/23 05:00 US - OR guided needle placemen Routine Hospital Course (1) Status post reverse total replacement of right shoulder: On March 08, 2023 Constantino arrived at [facility] and underwent a right reverse shoulder replacement without complication. He had a general anesthetic and a right interscalene nerve block. Postoperatively he was placed in a sling and transferred to the general orthopedic floors. The hospital course was uneventful. On postop day #1, the vital signs were stable and his pain was well controlled. He was able to participate well with physical therapy doing ambulation and range of motion exercises. He was then discharged home. He will follow-up with orthopedics in 2 weeks. PG Care Time/CCT Total # of Minutes Spent Total Time Spent with Patient: Total time spent is greater than 50% in coordination of care (as documented) at patient's floor/unit and/or counseling patient: Discharge Plan Discharge Items Patient Disposition: Home - Home Health Services Reason For Visit: Degenerative Joint Disease Right Shoulder Discharge Diagnosis: Right reverse shoulder replacement Activity: Per Instructions section Non-emergency contact: Surgeon Call non-emergency contact if: your wound has increased redness and your wound has increased drainage Follow-up/Referrals: Ana Lindo DO [Primary Care Provider] - Diet: Regular Addtl Attending Provider Instructions: Activity and Therapy Recommendations: * If you are using [facility] then therapy will be provided at your home until they feel you have accomplished all of your goals. * If you are using [facility] then Physical Therapy will be provided until they feel you are ready to start Outpatient Physical Therapy. * If you are not using home therapy then Outpatient Physical Therapy should start about 3-5 days from your day of surgery. Therapy will last about 8-12 weeks * Wear your sling for 3 weeks, unless otherwise instructed. You may remove your sling to shower and to dress, but otherwise, you should be in your sling at all times, including while sleeping * The shoulder replacement is very stable and you can use your hand while in the sling * You were shown a series of exercises in the hospital. Do these exercises daily including the exercises you were shown in physical therapy. Medications: * Narcotic You will likely be sent home from the hospital with a prescription for the narcotic pain medication that worked best throughout your stay. * Other medications may be prescribed for specific circumstances. If you have any questions, please call the office at . * Resume previous home medications unless otherwise instructed Dressing Care: Leave the Silverlon dressing in place for 7 days. After 7 days you may remove the dressing. If the incision is not draining then you may leave the cathy open to air. If there is a little bit of drainage or if the cathy are getting stuck on your clothing then cover the incision with a dry dressing. The cathy will be removed at your 2 week follow-up appointment. Showering: You may shower with the Silverlon dressing in place. Do not let the shower spray hit the dressing directly. Pat the Silverlon dressing dry. If the dressing becomes wet underneath, then simply remove the dressing. Keep the incision dry until you are 7 days out from the day of surgery. After 7 days you may remove the Silverlon dressing and shower with the cathy exposed. Let soapy water run over the cathy and pat them dry. Do not scrub or soak the incision. Things To Watch For: * Drainage from the incision site that occurs more than one week after your surgery. * Increased redness at the incision site. * Fever above 102 degrees Fahrenheit. * Unusual chest pain or shortness of breath. * Call [facility] at with any of the above problems Follow-Up Visit: Follow-up with Dr. Valentine's PA (Efraín Ortega) 2-3 weeks after your day of surgery. He will remove your cathy and answer any questions. If you have any additional questions or concerns, Dr Valentine is usually in the office at the same time and will be available An appointment was probably scheduled when you signed-up for surgery in the office. If you have any questions call More detailed instructions as well as Frequently Asked Questions were provided in a folder by our office when you signed-up for surgery. Please review these instructions when you get home. If you have any further questions or concerns, please feel free to call the office at [phone] Pending Studies at Discharge: No Stand-Alone Forms: My [facility], Smoking Cessation Medications and DC Order Prescriptions: New tramadol 50 mg tablet 50 mg PO Q6H PRN (Reason: pain) Qty: 30 0RF Continued tramadol 50 mg tablet 50 mg PO BID PRN (Reason: Pain) aspirin [Adult Low Dose Aspirin] 81 mg tablet,delayed release (DR/EC) 81 mg PO HS (DME) BiPap Machine Misc See Rx Instructions .Route Qty: 1 0RF Rx Instructions: As directed (DME) BiPap Supplies Misc See Rx Instructions .Route Qty: 1 0RF Rx Instructions: As directed losartan 100 mg tablet 100 mg PO QPM Qty: 90 1RF metformin 1,000 mg tablet 1,000 mg PO BID Qty: 180 1RF potassium chloride 20 mEq tablet extended release 20 meq PO QAM Qty: 90 1RF simvastatin 20 mg tablet 20 mg PO QAM Qty: 90 1RF infusion/ arthritis 1 dose IV UD Rx Instructions: once per month alfuzosin [Uroxatral] 10 mg tablet extended release 24 hr 10 mg PO DAILY Qty: 90 3RF Rx Instructions: administer after the same meal each day finasteride 5 mg tablet 5 mg PO DAILY Qty: 90 3RF oxybutynin chloride 15 mg tablet extended release 24hr 15 mg PO DAILY Qty: 90 3RF jgjkgvkuwzwo-cdnzahqp-emcxrh Tablet 1 tab PO QPM docusate sodium [Stool Softener] 100 mg capsule 100 mg PO Q2D Rx Instructions: PM ferrous sulfate 325 mg (65 mg iron) Tablet 325 mg PO QAM acetaminophen [Tylenol Ex Str Rapid Release] 500 mg Tablet 1,000 mg PO Q6H PRN (Reason: Pain) nabumetone 500 mg Tablet 500 mg PO QPM Magnesium Zinc Vitamin D 1 tab PO QPM Admission Data Admit Date/Time: 03/08/23 10:31 Attending Provider: Efraín Valentine Admit Provider: Efraín Valentine Primary Care Provider: Ana Lindo
[2023-03-09] MEDS: DOCUSATE SODIUM 100 MG CAP PO SCH (08:37)
[2023-03-09] MEDS: INSULIN ASPART PER UNIT CHARGE SC SCH (08:44)
[2023-03-09] MEDS ORDERED: FINASTERIDE 5 MG TAB PO SCH (09:00)
[2023-03-09] MEDS ORDERED: POTASSIUM CHLORIDE CRTAB 20 MEQ TABCR PO SCH (09:00)
[2023-03-09] MEDS ORDERED: OXYBUTYNIN CHLORIDE XL 5 MG TABCR PO SCH (09:00)
[2023-03-09] MEDS ORDERED: MULTIVITAMIN TAB PO SCH (09:00)
[2023-03-09] MEDS ORDERED: SIMVASTATIN 20 MG TAB PO SCH (09:00)
[2023-03-09] MEDS ORDERED: ALFUZOSIN HCL 10 MG TAB PO SCH (09:00)
== END 2023-03-09 11:38 | disposition home health service (06) ==
LOC: 3E 06:15 → ASU 06:15

== ENCOUNTER 2023-07-10 19:13 | Inpatient (IN) ==
[2023-07-10] MEDS ORDERED: SODIUM CHLORIDE 0.9% 500 ML IV STA (19:34)
--- NOTE | 2023-07-10 19:36 | Emergency Department Note ---
Impression & Plan Babesiasis ADMIT ED Provider Note HPI: The patient is an 82-year-old gentleman with history of TAYLOR, type 2 diabetes, psoriatic arthropathy, presents the emergency department today with multiple issues. Patient states that over the past several days he has had difficulty with p.o. intake. Patient states he has had less of an appetite, states he takes several bites of food and then feels full and cannot eat anymore. Patient denies any abdominal pain, denies any vomiting, states he is having regular bowel movements. Patient states he is also been having pain in his bilateral shoulders and bilateral hands consistent with arthritic pain that he has had previously. On arrival here to the ED the patient is alert, he is somewhat weak appearing and frail but is otherwise hemodynamically stable, he is in no acute distress on my initial assessment. ROS: - Per HPI Differential Diagnosis: Small bowel obstruction, gastric outlet syndrome, viral gastroenteritis, psoriatic arthritis, Lyme disease, osteoarthritis, amongst other potential pathologies. *Outpatient medications and allergy history reviewed. *Pertinent external medical records reviewed. PE: General: Alert, frail-appearing, no acute distress HEENT: Normocephalic, trachea midline Eyes: Extraocular eye movement is intact, no scleral erythema Pulmonary: Clear to auscultation bilaterally, no wheezing Cardio: Regular rate and rhythm GI: Abdomen is soft to palpation : No suprapubic tenderness MSK: No evidence of trauma or malformation of the extremities, no edema Skin: No evidence of rash Neuro: Alert, no focal deficits Psychiatric: Cooperative ekg monitor tech: (As interpreted by myself): - An order was placed for continuous cardiac monitoring - Patient was noted to be in sinus rhythm with a rate of 90 EKG: (As interpreted by myself): Rate: 89 Rhythm: Normal sinus rhythm Intervals: Within normal limits ST changes: No ST elevation Time: 2052 Interventions provided in ED: -Atovaquone, azithromycin Medical Decision Making: Shortly after the patient arrived IV was established lab work obtained, patient was maintained on conveyor monitor. Patient was ordered IV morphine for his arthralgias as well as an IV fluid bolus and IV Zofran. Lab work shows a mild anemia with hemoglobin of 9.5, no leukocytosis, platelet count is noted to be low at 102, CMP does not show any critical findings, mild elevation in BUN at 26, sodium slightly low at 135, total bilirubin 1.6, AST 43, alk phos elevated to 12. I was contacted by the laboratory in regards to the patient's blood work, RBCs appear to show inclusions concerning for Babesia infection. This do es correlate well with the patient's anemia and new onset thrombocytopenia. CT imaging of the abdomen pelvis was also obtained that does not show any evidence of small bowel obstruction. On my reassessment the patient is resting in bed. He states he feels very weak. He was placed on 2 L nasal cannula oxygen for transient hypoxia here in the ED but he denies any chest pain or shortness of breath, I do not see any obvious pathology on chest x-ray per my interpretation. Troponin is negative, EKG shows no acute ischemic changes or arrhythmia. Lyme testing was added on given finding of Babesia and testing is IgM equivocal. Patient was given atovaquone as well as azithromycin here in the ED. I discussed admission with the patient and he is in agreement. Case was discussed with the on-call hospitalist, Dr. Vargas, and the patient was placed for admission in stable condition. Consultants: Hospitalist, Dr. Vargas Disposition discussion held by myself with: Patient and at bedside Diagnosis: 1. Babesia infection, acute 2. Anemia, acute 3. Thrombocytopenia, acute 4. Elevated BUN, acute 5. Generalized weakness, acute 6. Diminished appetite, acute 7. 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) S/P arthroscopy of right shoulder S/P arthroscopy of shoulder (01/2016) S/P hammer toe correction (11/2013) S/P laminectomy (04/25/20) S/P laparoscopic cholecystectomy (07/2018) S/P left knee arthroscopy (10/2015) S/P rotator cuff repair Status post carpal tunnel release of both wrists Family History Mother Cardiac disorder Myocardial infarction Aunt Family history of diabetes mellitus Uncle Family history of diabetes mellitus Other No family history of adverse response to anesthesia Denies family history of Ovarian cancer Prostate cancer Breast cancer Colorectal cancer Social History Smoking Status: Former smoker Tobacco Type: Cigarettes packs per day: 2; Cigarettes Per Day: 2-3PPDx 30 YEARS; Second Hand Exposure: No; Do You Dip or Chew Tobacco: No; Hx Alcohol Use: No Hx Substance Use: No Preferred Language: Setswana Communication Ability: Effective Visual Impairment: Limited Hearing Ability: Normal [employer] Required: No Beliefs That Will Affect Care: None marital status: Current Living Situation: Spouse current occupational status: retired How many Children do You have: 4 How many Children do You have Comment: and one son are local and able to assist with care as needed. Other children live further away. Feels Safe at Home: Yes Diet: regular caffeine: Yes during the past year weight has: remained stable Dental Care, Regularly: Yes Physical Activity Frequency: Daily Physical Activity Frequency Comment: very active around house Seatbelt Use: always Sunscreen Use: Yes Assistive Devices: Cane and Walker Allergies Allergies Allergy/AdvReac Type Severity Reaction Status Date / Time amoxicillin Allergy Intermediate lip Verified 07/10/23 20:07 swelling clavulanic acid Allergy Intermediate lip Verified 07/10/23 20:07 swelling Sulfa (Sulfonamide Allergy Intermediate lip Verified 07/10/23 20:07 Antibiotics) swelling VINCE Inhibitors Allergy Unknown unknown Verified 07/10/23 20:07 clarithromycin AdvReac Intermediate GI upset Verified 07/10/23 20:07 Home Meds Home Medications Medication Instructions Recorded Confirmed aspirin 81 mg tablet,delayed 81 mg PO HS 06/29/18 07/10/23 release (Adult Low Dose Aspirin) [id number]-tadtyw tablet 1 tab PO QPM 09/05/20 07/10/23 acetaminophen 500 mg tablet 1,000 mg PO Q6H PRN Pain 08/04/22 07/10/23 ferrous sulfate 325 mg (65 mg 325 mg PO QAM 08/04/22 07/10/23 iron) tablet infusion/ arthritis 1 dose IV UD 12/31/22 07/10/23 docusate sodium 100 mg capsule 100 mg PO QPM 01/21/23 07/10/23 (Stool Softener) nabumetone 500 mg tablet 500 mg PO BID 06/22/23 07/10/23 calcium carbonate 600 mg-vitamin 1 tab PO DAILY 07/10/23 07/10/23 D3 10 mcg (400 unit) tablet (Calcium 600 + D(3)) Previous Rx's Medication Instructions Recorded BiPap Machine #1 ea 08/10/22 BiPap Supplies #1 ea 08/10/22 losartan 100 mg tablet 100 mg PO QPM #90 tabs 10/14/22 simvastatin 20 mg tablet 20 mg PO QAM #90 tabs 02/01/23 alfuzosin 10 mg tablet,extended 10 mg PO DAILY #90 tabs 02/18/23 release 24 hr (Uroxatral) finasteride 5 mg tablet 5 mg PO DAILY #90 tabs 02/18/23 oxybutynin chloride 15 mg 15 mg PO DAILY #90 tabs 02/18/23 tablet,extended release 24 hr metformin 1,000 mg tablet 1,000 mg PO BID #180 tabs 04/28/23 tramadol 50 mg tablet 50 mg PO Q6H PRN pain #30 tabs 05/05/23 potassium chloride 20 mEq 20 meq PO QAM #90 tabs 06/21/23 tablet,extended release Results & Data (ED) Vital Signs Vital Signs - 24 hr 07/10/23 19:16 07/10/23 19:47 07/10/23 19:47 Temperature 36.8 C Temperature Source Temporal Artery Scan Pulse Rate 104 H 90 Pulse Rate [Finger] 83 Pulse Rhythm Regular Pulse Rhythm [Finger] Regular Pulse Strength [Finger] Normal Respiratory Rate 18 20 20 Respiratory Effort / Characteristics Non-Labored Spontaneous Non-Labored Spontaneous Respiratory Depth Normal Normal Respiratory Pattern Regular Blood Pressure 107/60 Blood Pressure [Right Arm] 110/57 L Blood Pressure Mean 75 Blood Pressure Mean [Right Arm] 74 Blood Pressure Position [Right Arm] Lying Pulse Oximetry 95 94 94 Oxygen Delivery Method Room Air Room Air Room Air Sepsis Recent Fever Within 48 Hours No Sepsis New/Unexplained Change in Mental Status No Sepsis Action Taken by Nursing No Action Required 07/10/23 20:06 07/10/23 21:19 07/10/23 23:16 Temperature Temperature Source Pulse Rate 91 H 88 Pulse Rate [Finger] 76 Pulse Rhythm Pulse Rhythm [Finger] Regular Pulse Strength [Finger] Normal Respiratory Rate 20 22 Respiratory Effort / Characteristics Non-Labored Spontaneous Respiratory Depth Normal Respiratory Pattern Blood Pressure 117/60 Blood Pressure [Right Arm] 122/75 Blood Pressure Mean 79 Blood Pressure Mean [Right Arm] 90 Blood Pressure Position [Right Arm] Lying Pulse Oximetry 96 Oxygen Delivery Method Room Air Sepsis Recent Fever Within 48 Hours Sepsis New/Unexplained Change in Mental Status Sepsis Action Taken by Nursing 07/11/23 00:05 Temperature Temperature Source Pulse Rate 84 Pulse Rate [Finger] Pulse Rhythm Pulse Rhythm [Finger] Pulse Strength [Finger] Respiratory Rate Respiratory Effort / Characteristics Respiratory Depth Respiratory Pattern Blood Pressure Blood Pressure [Right Arm] Blood Pressure Mean Blood Pressure Mean [Right Arm] Blood Pressure Position [Right Arm] Pulse Oximetry Oxygen Delivery Method Sepsis Recent Fever Within 48 Hours Sepsis New/Unexplained Change in Mental Status Sepsis Action Taken by Nursing Laboratory Data 07/10/23 19:55 07/10/23 19:55 Lab Results 07/10/23 07/10/23 07/10/23 Range/Units 19:55 19:55 19:55 WBC 6.03 (4.8-10.8) K/ul RBC 3.61 L (4.70-6.10) M/uL Hgb 9.5 L (14.0-18.0) g/dl Hct 29.5 L (42.0-52.0) % MCV 81.7 (80.0-100.0) fL MCH 26.3 (25.0-34.0) pg MCHC 32.2 (32.0-36.0) g/dL RDW Std Deviation 51.3 H (36.4-46.3) fL RDW Coeff of Caren 17.2 H (11.5-14.5) % Plt Count 102 L (130-400) K/uL MPV 10.6 (9.4-12.4) fL Immature Gran % (Auto) 0.7 % Neut % (Auto) 55.9 % Lymph % (Auto) 30.5 % Canyon % (Auto) 11.6 % Eos % (Auto) 0.8 % Baso % (Auto) 0.5 % Neut # (Auto) 3.37 (1.40-6.50) K/uL Lymph # (Auto) 1.84 (1.20-3.40) K/uL Canyon # (Auto) 0.70 H (0.11-0.59) K/uL Eos # (Auto) 0.05 (0.00-0.50) K/uL Baso # (Auto) 0.03 (0.00-0.20) K/uL Immature Gran # (Auto) 0.04 (0.01-0.20) K/uL PT 11.9 (9.0-12.0) Seconds INR 1.1 (0.9-1.1) Sodium 135 L (136-145) mmol/L Potassium 4.4 (3.5-5.1) mmol/L Chloride 106 (98-107) mmol/L Carbon Dioxide 22 (21-32) mmol/L Anion Gap 7 (3-11) BUN 26 H (6-23) mg/dl Creatinine 0.73 (0.6-1.4) mg/dl Est Cr Clr Drug Dosing 77.4 ml/min Est GFR ( Amer) 98.7 ml/min Est GFR (Non-Af Amer) 85.2 ml/min BUN/Creatinine Ratio 35.6 H (10-20) Glucose 134 H (70-99(Fasting)) mg/dl Calcium 9.3 (8.6-10.3) mg/dl Total Bilirubin 1.6 H (0.2-1.0) mg/dl AST 43 H (13-39) U/L ALT 23 (7-52) U/L Alkaline Phosphatase 212 H (34-104) U/L Troponin I High Sens 11.0 (0-20) pg/ml Total Protein 6.7 (6.0-8.3) gm/dl Albumin 3.5 (3.4-5.0) gm/dl Globulin 3.2 (2.5-4.0) gm/dl Albumin/Globulin Ratio 1.1 (0.9-2) Lipase 8 L (11-82) U/L Anaplasma Smear See Comment Babesia Smear See Comment A Lyme Disease IgG Ab (Negative) Lyme Disease IgM Ab (Negative) 07/10/23 Range/Units 19:55 WBC (4.8-10.8) K/ul RBC (4.70-6.10) M/uL Hgb (14.0-18.0) g/dl Hct (42.0-52.0) % MCV (80.0-100.0) fL MCH (25.0-34.0) pg MCHC (32.0-36.0) g/dL RDW Std Deviation (36.4-46.3) fL RDW Coeff of Caren (11.5-14.5) % Plt Count (130-400) K/uL MPV (9.4-12.4) fL Immature Gran % (Auto) % Neut % (Auto) % Lymph % (Auto) % Canyon % (Auto) % Eos % (Auto) % Baso % (Auto) % Neut # (Auto) (1.40-6.50) K/uL Lymph # (Auto) (1.20-3.40) K/uL Canyon # (Auto) (0.11-0.59) K/uL Eos # (Auto) (0.00-0.50) K/uL Baso # (Auto) (0.00-0.20) K/uL Immature Gran # (Auto) (0.01-0.20) K/uL PT (9.0-12.0) Seconds INR (0.9-1.1) Sodium (136-145) mmol/L Potassium (3.5-5.1) mmol/L Chloride (98-107) mmol/L Carbon Dioxide (21-32) mmol/L Anion Gap (3-11) BUN (6-23) mg/dl Creatinine (0.6-1.4) mg/dl Est Cr Clr Drug Dosing ml/min Est GFR ( Amer) ml/min Est GFR (Non-Af Amer) ml/min BUN/Creatinine Ratio (10-20) Glucose (70-99(Fasting)) mg/dl Calcium (8.6-10.3) mg/dl Total Bilirubin (0.2-1.0) mg/dl AST (13-39) U/L ALT (7-52) U/L Alkaline Phosphatase (34-104) U/L Troponin I High Sens (0-20) pg/ml Total Protein (6.0-8.3) gm/dl Albumin (3.4-5.0) gm/dl Globulin (2.5-4.0) gm/dl Albumin/Globulin Ratio (0.9-2) Lipase (11-82) U/L Anaplasma Smear Babesia Smear Lyme Disease IgG Ab Negative (Negative) Lyme Disease IgM Ab Equivocal A (Negative) Administered Medications Azithromycin 500 mg/ Dextrose 255 mls @ 127.5 mls/hr IV NOW STA Stop: 07/11/23 02:38 Last Admin: 07/11/23 01:02 Dose: 127.5 mls/hr Documented By: KATERINE Discontinued Medications Atovaquone (Atovaquone 750 Mg/5 Ml Udc) 750 mg PO NOW STA Stop: 07/11/23 00:40 Last Admin: 07/11/23 01:05 Dose: 750 mg Documented By: KATERINE Sodium Chloride (Nss) 500 mls @ 999 mls/hr IV .Q31M STA Stop: 07/10/23 20:04 Last Infusion: 07/10/23 21:17 Dose: 0 mls/hr Documented By: Admin: 07/10/23 19:52 Dose: 999 mls/hr Documented By: ADAM Ioversol (Optiray 320 100ml) 92 ml IV ONCE ONE Stop: 07/10/23 21:11 Last Admin: 07/10/23 21:11 Dose: 92 ml Documented By: RADHA Morphine Sulfate (Morphine Sulfate 2 Mg/Ml Carp) 2 mg IV NOW STA Stop: 07/10/23 20:41 Last Admin: 07/10/23 21:19 Dose: 2 mg Documented By: ADAM Ondansetron HCl (Ondansetron Inj 2 Mg/Ml 2 Ml Vial) 4 mg IV NOW STA Stop: 07/10/23 20:41 Last Admin: 07/10/23 21:20 Dose: 4 mg Documented By: ADAM Imaging Data Radiologist's Impression: Abdomen/Pelvis CT 07/10/23 20:33 Exam(s): CT ABDOMEN + PELVIS With Contrast IV Amt: 92ML OPTIRAY 320 EXAM: CT Abdomen and Pelvis With Intravenous Contrast CLINICAL HISTORY: Reason for exam: Nausea, unable to eat much, eval for SBO. TECHNIQUE: Axial computed tomography images of the abdomen and pelvis with intravenous contrast. CTDI is 27.11 mGy and DLP is 1350.64 mGy-cm. Automated exposure control was utilized for the study. A dose lowering technique was utilized adhering to the principles of ALARA. CONTRAST: Patient received 92ML OPTIRAY 320 of IV contrast COMPARISON: No relevant prior studies available. FINDINGS: Lung bases: Unremarkable. No mass. No consolidation. ABDOMEN: Liver: Unremarkable. No mass. Gallbladder and bile ducts: Unremarkable. No calcified stones. No ductal dilation. Pancreas: Unremarkable. No mass. No ductal dilation. Spleen: Unremarkable. No splenomegaly. Adrenals: Unremarkable. No mass. Kidneys and ureters: Unremarkable. No solid mass. No hydronephrosis. Stomach and bowel: Diverticulosis, without acute diverticulitis. No small bowel obstruction. No free intraperitoneal air. PELVIS: Appendix: No findings to suggest acute appendicitis. Bladder: Minimal wall thickening of the urinary bladder, likely from under distention. Reproductive: Unremarkable as visualized. ABDOMEN and PELVIS: Intraperitoneal space: Unremarkable. No free air. No significant fluid collection. Bones/joints: Degenerative changes of the spine. No acute fracture. No dislocation. Soft tissues: Unremarkable. Vasculature: Atherosclerotic changes of the aorta. No abdominal aortic aneurysm. Lymph nodes: Unremarkable. No enlarged lymph nodes. IMPRESSION: Diverticulosis, without acute diverticulitis. No small bowel obstruction. No free intraperitoneal air. Electronically signed by: Raghav Jaramillo MD 07/11/23 00:21 AM Discharge Plan Visit Data Chief Complaint: Illness Stated Complaint: CANT EAT OR SLEEP ED Provider: Chandan Charles Discharge Problem: Babesiasis Forms Stand Alone Forms: My [facility] [employer] Prescriptions Prescriptions: No Action aspirin [Adult Low Dose Aspirin] 81 mg tablet,delayed release (DR/EC) 81 mg PO HS (DME) BiPap Machine Misc See Rx Instructions .Route Qty: 1 0RF Rx Instructions: As directed (DME) BiPap Supplies Misc See Rx Instructions .Route Qty: 1 0RF Rx Instructions: As directed losartan 100 mg tablet 100 mg PO QPM Qty: 90 1RF simvastatin 20 mg tablet 20 mg PO QAM Qty: 90 1RF metformin 1,000 mg tablet 1,000 mg PO BID Qty: 180 1RF potassium chloride 20 mEq tablet extended release 20 meq PO QAM Qty: 90 1RF infusion/ arthritis 1 dose IV UD Rx Instructions: once per month tramadol 50 mg tablet 50 mg PO Q6H PRN (Reason: pain) Qty: 30 0RF alfuzosin [Uroxatral] 10 mg tablet extended release 24 hr 10 mg PO DAILY Qty: 90 3RF Rx Instructions: administer after the same meal each day finasteride 5 mg tablet 5 mg PO DAILY Qty: 90 3RF oxybutynin chloride 15 mg tablet extended release 24hr 15 mg PO DAILY Qty: 90 3RF fldriwmufamx-disymqrt-dapgcg Tablet 1 tab PO QPM docusate sodium [Stool Softener] 100 mg capsule 100 mg PO QPM Rx Instructions: PM ferrous sulfate 325 mg (65 mg iron) Tablet 325 mg PO QAM acetaminophen 500 mg Tablet 1,000 mg PO Q6H PRN (Reason: Pain) nabumetone 500 mg tablet 500 mg PO BID calcium carbonate-vitamin D3 [Calcium 600 + D(3)] 600 mg-10 mcg (400 unit) Tablet 1 tab PO DAILY Referrals Referrals: Ana Lindo DO [Primary Care Provider] -
[2023-07-10 20:32] LABS: Hematocrit (blood only) 29.5 % (42.0-52.0); Hemoglobin 9.5 g/dl (14.0-18.0); Mean Corpuscular Hemoglobin 26.3 pg (25.0-34.0); Mean Corpuscular Hgb Conc 32.2 g/dL (32.0-36.0); Mean Corpuscular Volume 81.7 fL (80.0-100.0); Mean Platelet Volume 10.6 fL (9.4-12.4); Platelet Count 102 K/uL (130-400); RDW Coefficient of Variation 17.2 % (11.5-14.5); RDW Standard Deviation 51.3 fL (36.4-46.3); Red Blood Count 3.61 M/uL (4.70-6.10); White Blood Count 6.03 K/ul (4.8-10.8)
[2023-07-10 20:35] LABS: Albumin Globulin Ratio 1.1 (0.9-2); Albumin Level 3.5 gm/dl (3.4-5.0); BUN Creatinine Ratio 35.6 (10-20); Bilirubin,Total 1.6 mg/dl (0.2-1.0); Calcium 9.3 mg/dl (8.6-10.3); Creatinine Clr Calc Pharmacy 77.4 ml/min; Est GFR (African American) 98.7 ml/min; Est GFR (Non-African American) 85.2 ml/min; Globulin 3.2 gm/dl (2.5-4.0); Potassium 4.4 mmol/L (3.5-5.1); Total Protein 6.7 gm/dl (6.0-8.3)
[2023-07-10] MEDS ORDERED: ONDANSETRON INJ 2 MG/ML 2 ML VIAL IV STA (20:40)
[2023-07-10] MEDS ORDERED: MoRPHine SULFATE 2 MG/ML CARP IV STA (20:40)
[2023-07-10 20:46] LABS: INR 1.1 (0.9-1.1); Prothrombin Time 11.9 Seconds (9.0-12.0)
[2023-07-10] MEDS ORDERED: OPTIRAY 320 100ml IV ONE (21:10)
[2023-07-10 22:21] LABS: Basophils # (auto) 0.03 K/uL (0.00-0.20); Basophils % (auto) 0.5 %; Eosinophils # (auto) 0.05 K/uL (0.00-0.50); Eosinophils % (auto) 0.8 %; Immature Granulocytes # (auto) 0.04 K/uL (0.01-0.20); Immature Granulocytes % (auto) 0.7 %; Lymphocytes # (auto) 1.84 K/uL (1.20-3.40); Lymphocytes % (auto) 30.5 %; Monocytes % (auto) 11.6 %; Neutrophils # (auto) 3.37 K/uL (1.40-6.50); Neutrophils % (auto) 55.9 %
--- NOTE | 2023-07-11 00:22 | CT Scan Report ---
Exam(s): CT ABDOMEN + PELVIS With Contrast IV Amt: 92ML OPTIRAY 320 EXAM: CT Abdomen and Pelvis With Intravenous Contrast CLINICAL HISTORY: Reason for exam: Nausea, unable to eat much, eval for SBO. TECHNIQUE: Axial computed tomography images of the abdomen and pelvis with intravenous contrast. CTDI is 27.11 mGy and DLP is 1350.64 mGy-cm. Automated exposure control was utilized for the study. A dose lowering technique was utilized adhering to the principles of ALARA. CONTRAST: Patient received 92ML OPTIRAY 320 of IV contrast COMPARISON: No relevant prior studies available. FINDINGS: Lung bases: Unremarkable. No mass. No consolidation. ABDOMEN: Liver: Unremarkable. No mass. Gallbladder and bile ducts: Unremarkable. No calcified stones. No ductal dilation. Pancreas: Unremarkable. No mass. No ductal dilation. Spleen: Unremarkable. No splenomegaly. Adrenals: Unremarkable. No mass. Kidneys and ureters: Unremarkable. No solid mass. No hydronephrosis. Stomach and bowel: Diverticulosis, without acute diverticulitis. No small bowel obstruction. No free intraperitoneal air. PELVIS: Appendix: No findings to suggest acute appendicitis. Bladder: Minimal wall thickening of the urinary bladder, likely from under distention. Reproductive: Unremarkable as visualized. ABDOMEN and PELVIS: Intraperitoneal space: Unremarkable. No free air. No significant fluid collection. Bones/joints: Degenerative changes of the spine. No acute fracture. No dislocation. Soft tissues: Unremarkable. Vasculature: Atherosclerotic changes of the aorta. No abdominal aortic aneurysm. Lymph nodes: Unremarkable. No enlarged lymph nodes. IMPRESSION: Diverticulosis, without acute diverticulitis. No small bowel obstruction. No free intraperitoneal air. Electronically signed by: Raghav Jaramillo MD 07/11/23 00:21 AM
[2023-07-11] MEDS ORDERED: AZITHROMYCIN 500 MG in DEXTROSE 5% 250 ML IV STA (00:39)
[2023-07-11] MEDS ORDERED: ATOVAQUONE 750 MG/5 ML UDC PO STA (00:39)
[2023-07-11 00:44] LABS: Lyme Ab IgG w/WB Rflx Negative (Negative)
[2023-07-11 00:47] LABS: Lyme Ab IgM w/WB Rflx Equivocal (Negative)
--- NOTE | 2023-07-11 01:10 | History & Physical Report ---
Date of Service July 11, 2023 Assessment & Plan (1) Babesiasis: Plan: -Pt presents with malaise, reduced appetite, fatigue and anemia, thrombocytopenia, smear suggestive of babesiosis -Atovaquone 750 mg PO, azithromycin 500 mg IV given in ER -Will continue atovaquone 750 mg PO BID, azithromycin 250 mg IV daily for now -Babesia titers, PCR pending -ID consult placed for AM -Trend CBC, CMP (2) Tick-borne disease: Plan: -As above, treating babesiosis -Anaplasma negative -Lyme IgM equivocal, blot pending. Will treat for presumed Lyme coinfection with doxycycline 100 mg IV BID until blot results (3) Decreased oral intake: Plan: -Secondary to acute tickborne infection -Fluid repletion ongoing -Clear liquids for now, advance as tolerated (4) Anemia: Plan: -Hgb 9.5 on admission, baseline appears 10-11 with known history of chronic LON -Suspect mild decrease secondary to infection, low suspicion for active bleeding -Continue ferrous sulfate -Monitor CBC (5) Thrombocytopenia: Plan: -Plts 102 on admission -Likely consumptive coagulopathy 2/2 acute tickborne infection -Holding home aspirin -Monitor CBC -Peripheral smear pending (6) TAYLOR (obstructive sleep apnea): Plan: -BIPAP Hs (7) Diabetic peripheral neuropathy associated with type 2 diabetes mellitus: Plan: -A1C 5.8% in 12/2022 -Holding home metformin -Lantus, SSI (8) Hypertension: Plan: -BP stable -Continue losartan (9) Hyperlipidemia: Plan: -Continue simvastatin (10) BPH with obstruction/lower urinary tract symptoms: Plan: -Continue alfuzosin, finasteride (11) Elevated alkaline phosphatase level: Plan: -ALP 212, likely reactive to acute infection -Low suspicion for acute biliary disease at present -Trend CMP (12) Hyperbilirubinemia: Plan: -TB 1.6 without acute signs of jaundice -As above, low suspicion for hepatobiliary disease at present -Trend CMP Plan FENGI: Clear liquids, DM2 Code status: Full DVT prophylaxis: SCDs, deferring chemoprophylaxis given anemia + thrombocytopenia Isolation: None Disposition: Medical/surgical History of Present Illness Chief Complaint: Weakness Primary Care Provider: Ana Lindo, Pt is 82 yo M with PMH DM2 w/ neuropathy, TAYLOR on BIPAP, HTN, psoriatic arthropathy, chronic iron deficiency anemia, BPH, overactive bladder presenting with weakness. Pt reports onset of reduced appetite 1 week prior along with general malaise and fatigue. He has had worsened b/l shoulder pain, wrist pain and finger pain. He denies any recent tick bites, rashes, fevers but has had chills intermittently. No nausea or vomiting. Pt arrived to ER hemodynamically stable. Initial evaluation significant for Hgb 9.5, Plts 102, TB 1.6, AST 43, ALP 212, . CBC, CMP, CTAP, CXR, troponin, EKG otherwise unremarkable. Anaplasmosis smear negative. Babesia smear positive for RBC inclusions, Lyme IgM equivocal. ER interventions include morphine 2 mg IV, Zofran 4 mg IV, 500cc NS bolus, atovaquone, azithromycin. At present, pt reports continued fatigue and weakness. No new complaints. Allergies Allergy/AdvReac Type Severity Reaction Status Date / Time amoxicillin Allergy Intermediate lip Verified 07/10/23 20:07 swelling clavulanic acid Allergy Intermediate lip Verified 07/10/23 20:07 swelling Sulfa (Sulfonamide Allergy Intermediate lip Verified 07/10/23 20:07 Antibiotics) swelling VINCE Inhibitors Allergy Unknown unknown Verified 07/10/23 20:07 clarithromycin AdvReac Intermediate GI upset Verified 07/10/23 20:07 Home Medications Medication Instructions Recorded Confirmed Type aspirin 81 mg tablet,delayed 81 mg PO HS 06/29/18 07/10/23 History release (Adult Low Dose Aspirin) [id number] tablet 1 tab PO QPM 09/05/20 07/10/23 History acetaminophen 500 mg tablet 1,000 mg PO Q6H PRN Pain 08/04/22 07/10/23 History ferrous sulfate 325 mg (65 mg 325 mg PO QAM 08/04/22 07/10/23 History iron) tablet BiPap Machine #1 ea 08/10/22 06/24/23 Rx BiPap Supplies #1 ea 08/10/22 06/24/23 Rx losartan 100 mg tablet 100 mg PO QPM #90 tabs 10/14/22 07/10/23 Rx infusion/ arthritis 1 dose IV UD 12/31/22 07/10/23 History docusate sodium 100 mg capsule 100 mg PO QPM 01/21/23 07/10/23 History (Stool Softener) simvastatin 20 mg tablet 20 mg PO QAM #90 tabs 02/01/23 07/10/23 Rx alfuzosin 10 mg tablet,extended 10 mg PO DAILY #90 tabs 02/18/23 07/10/23 Rx release 24 hr (Uroxatral) finasteride 5 mg tablet 5 mg PO DAILY #90 tabs 02/18/23 07/10/23 Rx oxybutynin chloride 15 mg 15 mg PO DAILY #90 tabs 02/18/23 07/10/23 Rx tablet,extended release 24 hr metformin 1,000 mg tablet 1,000 mg PO BID #180 tabs 04/28/23 07/10/23 Rx tramadol 50 mg tablet 50 mg PO Q6H PRN pain #30 tabs 05/05/23 07/10/23 Rx potassium chloride 20 mEq 20 meq PO QAM #90 tabs 06/21/23 07/10/23 Rx tablet,extended release nabumetone 500 mg tablet 500 mg PO BID 06/22/23 07/10/23 History calcium carbonate 600 mg-vitamin 1 tab PO DAILY 07/10/23 07/10/23 History D3 10 mcg (400 unit) tablet (Calcium 600 + D(3)) atovaquone 750 mg/5 mL oral 750 mg (5 mL) PO Q12H 9 days #90 mL 07/12/23 Rx suspension (Mepron) azithromycin 250 mg tablet 250 mg PO DAILY 6 days #6 tabs 07/12/23 Rx doxycycline hyclate 100 mg capsule 100 mg PO BID 9 days #17 caps 07/12/23 Rx Past Med/Surg History Medical History Abnormal ECG GERD (gastroesophageal reflux disease) Hiatal hernia History of DVT (deep vein thrombosis) Urinary incontinence Surgical History H/O bilateral cataract extraction H/O elbow surgery History of colonoscopy History of tonsillectomy Hx of difficult intubation Hx of oral surgery 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) S/P arthroscopy of right shoulder S/P arthroscopy of shoulder (01/2016) S/P hammer toe correction (11/2013) S/P laminectomy (04/25/20) S/P laparoscopic cholecystectomy (07/2018) S/P left knee arthroscopy (10/2015) S/P rotator cuff repair Status post carpal tunnel release of both wrists Family History Mother Cardiac disorder Myocardial infarction Aunt Family history of diabetes mellitus Uncle Family history of diabetes mellitus Other No family history of adverse response to anesthesia Denies family history of Ovarian cancer Prostate cancer Breast cancer Colorectal cancer Social History Smoking Status: Former smoker Tobacco Type: Cigarettes packs per day: 2; Cigarettes Per Day: 2-3PPDx 30 YEARS; Second Hand Exposure: No; Do You Dip or Chew Tobacco: No; Hx Alcohol Use: No Hx Substance Use: No Preferred Language: Niuean Communication Ability: Effective Visual Impairment: Limited Hearing Ability: Normal Customer Success Director Required: No Beliefs That Will Affect Care: None marital status: Current Living Situation: Spouse current occupational status: retired How many Children do You have: 4 How many Children do You have Comment: and one son are local and able to assist with care as needed. Other children live further away. Feels Safe at Home: Yes Diet: regular caffeine: Yes during the past year weight has: remained stable Dental Care, Regularly: Yes Physical Activity Frequency: Daily Physical Activity Frequency Comment: very active around house Seatbelt Use: always Sunscreen Use: Yes Assistive Devices: Cane and Walker Review of Systems Review of Systems: Per HPI Physical Exam Physical Exam: General: tired-appearing, no acute distress HEENT: PERRL, EOMI, conjunctivae clear without injection, anicteric sclerae, dry mucous membranes, clear oropharynx without exudate or erythema Neck: supple, trachea midline, no thyromegaly, no JVD, no cervical lymphadenopathy CV: RRR, normal S1 and S2, no murmurs Resp: CTAB, no increased work of breathing, no crackles or wheezes Abd: Soft, nontender, nondistended, no guarding or rebound, no hepatosplenomegaly MSK: Normal bulk of all four extremities Neuro: AOx3, no focal motor or sensory deficits Skin: no rashes, warm and dry, no pallor Ext: no LE peripheral edema or erythema, capillary refill <2s in all four extremities, 2+ LE peripheral pulses b/l Results & Data Results & Data Vital Signs (Past 12 Hours) Vital Signs Temp Pulse Pulse Resp BP BP Pulse Ox 07/11/23 00:05 84 07/10/23 23:16 88 22 117/60 07/10/23 21:19 76 20 122/75 96 07/10/23 20:06 91 H 07/10/23 19:47 90 20 94 07/10/23 19:47 83 20 110/57 L 94 07/10/23 19:16 36.8 C 104 H 18 107/60 95 O2 Del Method 07/11/23 00:05 07/10/23 23:16 07/10/23 21:19 Room Air 07/10/23 20:06 07/10/23 19:47 Room Air 07/10/23 19:47 Room Air 07/10/23 19:16 Room Air Code Status & VTE Plan VTE Prophylaxis Plan VTE Prophylaxis will be ordered: Yes Supervising Physician Co-Signing Physician Notes Patient seen and examined, chart reviewed, case discussed with Dr. Cancino and I agree with the assessment and plan as above Resident Activity Tracking Resident Involvement: Resident Care Provided Care Provided: Adult Hospital Medicine
[2023-07-11] MEDS ORDERED: DEXTROSE 50% 50 ML SYRINGE IV PRN (03:31)
[2023-07-11] MEDS ORDERED: GLUCAGON FOR INJ 1 MG VIAL SQ PRN (03:31)
[2023-07-11] MEDS ORDERED: GLUCOSE 40% GEL 15 GM TUBE PO PRN (03:31)
[2023-07-11] MEDS ORDERED: GLUCOSE 10 TAB/TUBE PO PRN (03:31)
[2023-07-11] MEDS ORDERED: CARBOHYDRATES FOR HYPOGLYCEMIA PO PRN (03:31)
[2023-07-11] MEDS: DOXYCYCLINE HYCLATE 100 MG in DEXTROSE 5% 100 ML IV SCH ×2 (05:38→16:25)
[2023-07-11] MEDS ORDERED: MoRPHine SULFATE 2 MG/ML CARP IV STA (05:48)
[2023-07-11 05:51] LABS: Appearance Urine Clear (Clear); Bacteria Urine Automated Negative (Negative); Blood Urine 2+ (Negative); Color Urine Orange; Glucose Urine UA Negative (Negative); Ketones Urine Trace (Negative); Leukocyte Esterase Urine Trace (Negative); Nitrite Urine Negative (Negative); Protein Urine Trace (Negative); Specific Gravity Urine > 1.045 (1.000-1.030); Urobilinogen Urine Negative (Negative)
[2023-07-11 05:59] LABS: Bilirubin Urine 1+ (Negative)
--- NOTE | 2023-07-11 07:15 | Hospitalist Progress Note ---
Date of Service July 11, 2023 Assessment & Plan (1) Babesiasis: Plan: Pt is a 82 yo male with PMH of DVT, diabetes, and GERD presenting due to malaise, lack of appetite, and insomnia. Tick borne disease- babesiasis, concern for lyme - anaplasma negative - babesia smear pos, lyme IgM equivocal; lyme bands and babesia titers/PCR pending - treating also for presumed lyme - current abx regimen as follows: atovaquone 750 mg BID x7-10 days (first dose 07/11 ~1AM) azithromycin 500 mg IV daily (first dose 07/11 ~ 1AM); will transition to 250 mg PO as pt clinically improves doxycycline 100 mg BID [id number] (first dose 07/11 ~5AM); will transition to PO as pt improves - consider ID consult if pt does not improve as expected Anemia - baseline appears 10-11 with known history of chronic LON - Hgb drop to 8.7 today - suspect acute worsening secondary to infection and dilution; low suspicion for active bleeding - despite anemia and thrombocytopenia, will initiate DVT ppx with lovenox d/t hx of unprovoked DVT - hold ferrous sulfate in the setting of active infection - continue to monitor CBC Thrombocytopenia - likely consumptive coagulopathy 2/2 acute tickborne infection - hold home aspirin - continue to monitor; consider holding lovenox if plts continue to drop or concern for active bleeding arises TAYLOR - BIPAP Hs DM - A1C 5.8% in 12/2022 - home home metformin - insulin glargine 5 units BID; SSI HTN - continue losartan HLD - continue simvastatin BPH - continue alfuzosin, finasteride Elevated alk phosphatase - ALP 212, likely reactive to acute infection - low suspicion for acute biliary disease at present - continue to trend Hyperbilirubinemia - TB 1.6 without acute signs of jaundice - As above, low suspicion for hepatobiliary disease at present FEN: DM2 as tolerated Code status: Full DVT prophylaxis: lovenox Disposition: med/surg (2) Tick-borne disease: (3) Decreased oral intake: (4) Anemia: (5) Thrombocytopenia: (6) TAYLOR (obstructive sleep apnea): (7) Diabetic peripheral neuropathy associated with type 2 diabetes mellitus: (8) Hypertension: (9) Hyperlipidemia: (10) BPH with obstruction/lower urinary tract symptoms: (11) Elevated alkaline phosphatase level: (12) Hyperbilirubinemia: Admission and Anticipated Discharge Date Admission Date: July 11, 2023 Supervising Physician Co-Signing Physician Notes Attending attestation Pt seen and examined in concert with Dr. Kline. In agreement with the documented findings as noted in the resident documentation with any exceptions or additions as noted here. Ongoing fatigue minimally improved from time of admission without new complaints at present. On examination, S1/S2 nl RRR no MCG. CTAB. Abd NT/ND BS+ve Babesiosis with concern for lyme disease - antibiotic therapy as noted. Consider ID consult if failure to improve. Anemia, normocytic - gradual downtrending. Monitor CBC daily and consider transfusion at hgb 7 Thrombocytopenia - holding ASA. Lovenox for DVT PPX, hold if ongoing decrease in PLT Else see resident documentation as noted. Subjective Pt states he feels ill this morning- tired, run down, unable to eat d/t lack of appetite. His hands have also been painful for him. He denies SOB, chest pain, N/V, and leg pains. Review of Systems Review of Systems: As per HPI Physical Exam Physical Exam: Constitutional: ill appearing, no acute distress HEENT: normocephalic, no conjunctival injection CV: regular rhythm, regular rate, no murmur, trace LE edema Respiratory: Clear to auscultation bilaterally. No rhonchi, wheezes, or crackles. No increased work of breathing MSK: no gross deformities noted Skin: warm, dry, no rashes Neuro: alert, oriented, no FND noted Results & Data Results & Data Vital Signs (Past 12 Hours) Vital Signs Temp Pulse Pulse Resp BP BP Pulse Ox 07/11/23 03:05 07/11/23 03:05 37 C 107 H 18 112/69 96 07/11/23 01:30 82 21 100 07/11/23 01:00 78 21 107/78 98 07/11/23 00:30 85 17 99 07/11/23 00:00 83 18 119/69 99 07/11/23 00:05 84 07/10/23 23:16 88 22 117/60 07/10/23 21:19 76 20 122/75 96 07/10/23 20:06 91 H 07/10/23 19:47 90 20 94 07/10/23 19:47 83 20 110/57 L 94 07/10/23 19:16 36.8 C 104 H 18 107/60 95 O2 Del Method 07/11/23 03:05 Room Air 07/11/23 03:05 Room Air 07/11/23 01:30 07/11/23 01:00 07/11/23 00:30 07/11/23 00:00 07/11/23 00:05 07/10/23 23:16 07/10/23 21:19 Room Air 07/10/23 20:06 07/10/23 19:47 Room Air 07/10/23 19:47 Room Air 07/10/23 19:16 Room Air Resident Activity Tracking Resident Involvement: Resident Care Provided Care Provided: Adult Hospital Medicine
--- NOTE | 2023-07-11 08:02 | XRay Report ---
XR chest 1V portable HISTORY: Chest pain. COMPARISON: Chest 06/18/2023. FINDINGS: Bibasilar linear densities favor subsegmental atelectasis. There are low lung volumes. The cardiac silhouette remains mildly enlarged. There is a right shoulder prosthesis. No evidence for pul monary edema. IMPRESSION: Bibasilar linear densities favor subsegmental atelectasis given the low lung volumes. ACT 112: Negative or not required by law. Electronically signed by: Mitchell Hargrove M.D. 07/11/2023 8:00 AM
[2023-07-11 08:45] LABS: Hematocrit (blood only) 27.1 % (42.0-52.0); Hemoglobin 8.7 g/dl (14.0-18.0); Mean Corpuscular Hemoglobin 26.6 pg (25.0-34.0); Mean Corpuscular Hgb Conc 32.1 g/dL (32.0-36.0); Mean Corpuscular Volume 82.9 fL (80.0-100.0); Mean Platelet Volume 10.9 fL (9.4-12.4); Platelet Count 96 K/uL (130-400); RDW Coefficient of Variation 17.4 % (11.5-14.5); RDW Standard Deviation 52.2 fL (36.4-46.3); Red Blood Count 3.27 M/uL (4.70-6.10); White Blood Count 5.89 K/ul (4.8-10.8)
[2023-07-11] MEDS: TAMSULOSIN HCL 0.4 MG CAP PO SCH (08:49)
[2023-07-11] MEDS: ATOVAQUONE 750 MG/5 ML UDC PO SCH ×2 (08:49→19:40)
[2023-07-11] MEDS: POTASSIUM CHLORIDE CRTAB 20 MEQ TABCR PO SCH (08:49)
[2023-07-11] MEDS: OXYBUTYNIN CHLORIDE XL 5 MG TABCR PO SCH (08:49)
[2023-07-11] MEDS: FINASTERIDE 5 MG TAB PO SCH (08:49)
[2023-07-11] MEDS: SIMVASTATIN 20 MG TAB PO SCH (08:49)
[2023-07-11 08:56] LABS: Basophils # (auto) 0.03 K/uL (0.00-0.20); Basophils % (auto) 0.5 %; Eosinophils # (auto) 0.01 K/uL (0.00-0.50); Eosinophils % (auto) 0.2 %; Immature Granulocytes # (auto) 0.03 K/uL (0.01-0.20); Immature Granulocytes % (auto) 0.5 %; Lymphocytes # (auto) 1.77 K/uL (1.20-3.40); Lymphocytes % (auto) 30.1 %; Monocytes # (auto) 0.62 K/uL (0.11-0.59); Monocytes % (auto) 10.5 %; Neutrophils # (auto) 3.43 K/uL (1.40-6.50); Neutrophils % (auto) 58.2 %; Polychromasia 1+
[2023-07-11] MEDS: INSULIN ASPART PER UNIT CHARGE SC SCH ×4 (08:59→20:29)
[2023-07-11] MEDS: LANTUS PER UNIT CHARGE SQ SCH ×2 (08:59→20:41)
[2023-07-11] MEDS ORDERED: FERROUS SULFATE 325 MG TAB PO SCH (09:00)
[2023-07-11 09:10] LABS: Albumin Level 3.3 gm/dl (3.4-5.0); Bilirubin,Total 1.3 mg/dl (0.2-1.0); Calcium 8.6 mg/dl (8.6-10.3); Potassium 4.2 mmol/L (3.5-5.1)
[2023-07-11 09:16] LABS: Albumin Globulin Ratio 1.1 (0.9-2); BUN Creatinine Ratio 30.4 (10-20); Creatinine Clr Calc Pharmacy 80.7 ml/min; Est GFR (Non-African American) 87.2 ml/min; Globulin 3.1 gm/dl (2.5-4.0); Total Protein 6.4 gm/dl (6.0-8.3)
--- NOTE | 2023-07-11 09:18 | Electrocardiogram Report ---
Test Reason : Blood Pressure : / mmHG Vent. Rate : 089 BPM Atrial Rate : 089 BPM P-R Int : 176 ms QRS Dur : 094 ms QT Int : 360 ms P-R-T Axes : 071 -42 027 degrees QTc Int : 438 ms Normal sinus rhythm Left axis deviation Poor R wave progression, consider anterior GA vs. lead placement vs. LVH Abnormal ECG When compared with ECG of 02-FEB-2023 12:12, Premature supraventricular complexes are no longer Present QRS axis Shifted left Anterior infarct is now Present Confirmed by Hema Cabezas ([id number]) on 07/11/2023 9:18:27 AM Referred By: REFERRED SELF Confirmed By:Hema Cabezas
[2023-07-11] MEDS ORDERED: LACTATED RINGER'S 500 ML IV ONE (10:03)
[2023-07-11] MEDS: ACETAMINOPHEN 325 MG TAB PO PRN (12:25)
[2023-07-11] MEDS: ENOXAPARIN INJ 40 MG/0.4 ML SYR SQ SCH (12:25)
[2023-07-11] MEDS ORDERED: LOSARTAN POTASSIUM 50 MG TAB PO SCH (21:00)
[2023-07-11] MEDS ORDERED: AZITHROMYCIN 500 MG in DEXTROSE 5% 250 ML IV SCH (21:00)
[2023-07-11] MEDS ORDERED: DOCUSATE SODIUM 100 MG CAP PO SCH (21:00)
[2023-07-11] MEDS ORDERED: AZITHROMYCIN 250 MG in DEXTROSE 5% 250 ML IV SCH (21:00)
[2023-07-12] MEDS: DOXYCYCLINE HYCLATE 100 MG in DEXTROSE 5% 100 ML IV SCH (04:12)
--- NOTE | 2023-07-12 06:46 | Hospitalist Progress Note ---
Date of Service July 12, 2023 Assessment & Plan (1) Babesiasis: Plan: Pt is a 82 yo male with PMH of DVT, diabetes, and GERD presenting due to malaise, lack of appetite, and insomnia. #Tick borne illnesses - babesiasis, likely lyme as well Anaplasma negative. Babesia positive. Lyme equivocal. Treating for presumed Lyme on top of Babesia. Titers/PCR/bands pending Abx: atovaquone 750 mg BID x7-10 days (first dose 07/11 ~1AM) azithromycin 500 mg IV daily (first dose 07/11 ~ 1AM); will transition to 250 mg PO as pt clinically improves doxycycline 100 mg BID [id number] (first dose 07/11 ~5AM); will transition to PO as pt improves #Anemia Baseline appears - with known history of chronic LON. Hemoglobin 8.9. Low suspicion for active bleeding. Likely in the setting of tick borne illness (es). Holding ferrous sulfate in the setting of active infection. AM CBC #Thrombocytopenia Likely consumptive coagulopathy 2/2 acute tickborne infection hold home aspirin continue to monitor #TAYLOR BIPAP Hs #DM A1C 5.8% in 12/2022. Home home metformin - insulin glargine 5 units BID; SSI #HTN Continue losartan #HLD Continue simvastatin #BPH Continue alfuzosin, finasteride #Elevated alk phosphatase ALK 212, likely reactive to acute infection. low suspicion for acute biliary disease at present - continue to trend #Hyperbilirubinemia TB 1.6 without acute signs of jaundice - As above, low suspicion for hepatobiliary disease at present FEN: DM2 as tolerated Code status: Full DVT prophylaxis: lovenox, consider holding if concern for bleed vs dropping plts Disposition: med/surg (2) Tick-borne disease: (3) Decreased oral intake: (4) Anemia: (5) Thrombocytopenia: (6) TAYLOR (obstructive sleep apnea): (7) Diabetic peripheral neuropathy associated with type 2 diabetes mellitus: (8) Hypertension: (9) Hyperlipidemia: (10) BPH with obstruction/lower urinary tract symptoms: (11) Elevated alkaline phosphatase level: (12) Hyperbilirubinemia: Admission and Anticipated Discharge Date Admission Date: July 11, 2023 Subjective Patient reports feeling much better this AM. No fevers or chills in the last 24 hours. Overall much improved - no f/c/SOB/CP/abdominal pain/calf pain. Interested in discharge planning. Review of Systems Review of Systems: As per HPI Physical Exam Physical Exam: Constitutional: well appearing male in NAD HEENT: normocephalic, no conjunctival injection CV: regular rhythm, regular rate, no murmur, trace LE edema Respiratory: Clear to auscultation bilaterally. No rhonchi, wheezes, or crackles. No increased work of breathing MSK: no gross deformities noted Skin: warm, dry, no rashes Neuro: alert, oriented, no FND noted Results & Data Results & Data Vital Signs (Past 12 Hours) Vital Signs Temp Pulse Resp BP Pulse Ox O2 Del Method 07/11/23 19:34 36.8 C 78 18 111/67 96 Room Air Laboratory Results 07/12/23 06:12 07/12/23 06:12
[2023-07-12 06:53] LABS: Hematocrit (blood only) 27.2 % (42.0-52.0); Hemoglobin 8.9 g/dl (14.0-18.0); Mean Corpuscular Hemoglobin 26.4 pg (25.0-34.0); Mean Corpuscular Hgb Conc 32.7 g/dL (32.0-36.0); Mean Corpuscular Volume 80.7 fL (80.0-100.0); Mean Platelet Volume 10.8 fL (9.4-12.4); Platelet Count 86 K/uL (130-400); RDW Coefficient of Variation 17.5 % (11.5-14.5); RDW Standard Deviation 51.8 fL (36.4-46.3); Red Blood Count 3.37 M/uL (4.70-6.10); White Blood Count 4.65 K/ul (4.8-10.8)
[2023-07-12 07:05] LABS: Albumin Level 3.3 gm/dl (3.4-5.0); BUN Creatinine Ratio 29.4 (10-20); Bilirubin,Total 1.2 mg/dl (0.2-1.0); Calcium 8.8 mg/dl (8.6-10.3); Creatinine Clr Calc Pharmacy 81.8 ml/min; Est GFR (African American) 101.6 ml/min; Est GFR (Non-African American) 87.7 ml/min; Globulin 3.3 gm/dl (2.5-4.0); Potassium 4.2 mmol/L (3.5-5.1); Total Protein 6.6 gm/dl (6.0-8.3)
[2023-07-12] MEDS: OXYBUTYNIN CHLORIDE XL 5 MG TABCR PO SCH (08:44)
[2023-07-12] MEDS: ATOVAQUONE 750 MG/5 ML UDC PO SCH (08:44)
[2023-07-12] MEDS: FINASTERIDE 5 MG TAB PO SCH (08:45)
[2023-07-12] MEDS: POTASSIUM CHLORIDE CRTAB 20 MEQ TABCR PO SCH (08:45)
[2023-07-12] MEDS: TAMSULOSIN HCL 0.4 MG CAP PO SCH (08:45)
[2023-07-12] MEDS: SIMVASTATIN 20 MG TAB PO SCH (08:45)
[2023-07-12] MEDS: INSULIN ASPART PER UNIT CHARGE SC SCH ×2 (08:46→12:53)
[2023-07-12] MEDS: LANTUS PER UNIT CHARGE SQ SCH (08:51)
[2023-07-12] MEDS: ACETAMINOPHEN 325 MG TAB PO PRN (11:35)
[2023-07-12] MEDS: ENOXAPARIN INJ 40 MG/0.4 ML SYR SQ SCH (11:36)
--- NOTE | 2023-07-12 14:41 | Discharge Summary ---
Date of Service July 12, 2023 Admission HPI Per Admitting Provider Pt is 82 yo M with PMH DM2 w/ neuropathy, TAYLOR on BIPAP, HTN, psoriatic arthropathy, chronic iron deficiency anemia, BPH, overactive bladder presenting with weakness. Pt reports onset of reduced appetite 1 week prior along with general malaise and fatigue. He has had worsened b/l shoulder pain, wrist pain and finger pain. He denies any recent tick bites, rashes, fevers but has had chills intermittently. No nausea or vomiting. Pt arrived to ER hemodynamically stable. Initial evaluation significant for Hgb 9.5, Plts 102, TB 1.6, AST 43, ALP 212, . CBC, CMP, CTAP, CXR, troponin, EKG otherwise unremarkable. Anaplasmosis smear negative. Babesia smear positive for RBC inclusions, Lyme IgM equivocal. ER interventions include morphine 2 mg IV, Zofran 4 mg IV, 500cc NS bolus, atovaquone, azithromycin. At present, pt reports continued fatigue and weakness. No new complaints. Admission Exam Per Admitting Provider General: tired-appearing, no acute distress HEENT: PERRL, EOMI, conjunctivae clear without injection, anicteric sclerae, dry mucous membranes, clear oropharynx without exudate or erythema Neck: supple, trachea midline, no thyromegaly, no JVD, no cervical lymphadenopathy CV: RRR, normal S1 and S2, no murmurs Resp: CTAB, no increased work of breathing, no crackles or wheezes Abd: Soft, nontender, nondistended, no guarding or rebound, no hepatosplenomegaly MSK: Normal bulk of all four extremities Neuro: AOx3, no focal motor or sensory deficits Skin: no rashes, warm and dry, no pallor Ext: no LE peripheral edema or erythema, capillary refill <2s in all four extremities, 2+ LE peripheral pulses b/l Principal Diagnosis Babesiosis Discharge Exam Constitutional: well appearing male in NAD HEENT: normocephalic, no conjunctival injection CV: regular rhythm, regular rate, no murmur, trace LE edema Respiratory: Clear to auscultation bilaterally. No rhonchi, wheezes, or crackles. No increased work of breathing MSK: no gross deformities noted Skin: warm, dry, no rashes Neuro: alert, oriented, no FND noted Discharge Data Allergies Allergy/AdvReac Type Severity Reaction Status Date / Time amoxicillin Allergy Intermediate lip Verified 07/10/23 20:07 swelling clavulanic acid Allergy Intermediate lip Verified 07/10/23 20:07 swelling Sulfa (Sulfonamide Allergy Intermediate lip Verified 07/10/23 20:07 Antibiotics) swelling VINCE Inhibitors Allergy Unknown unknown Verified 07/10/23 20:07 clarithromycin AdvReac Intermediate GI upset Verified 07/10/23 20:07 Consultations 07/11/23 00:38 ED Decision to Admit Stat Ordered Studies Chest X-Ray 07/10/23 19:34 FINDINGS: Bibasilar linear densities favor subsegmental atelectasis. There are low lung volumes. The cardiac silhouette remains mildly enlarged. There is a right shoulder prosthesis. No evidence for pulmonary edema. IMPRESSION: Bibasilar linear densities favor subsegmental atelectasis given the low lung volumes. Abdomen/Pelvis CT 07/10/23 20:33 FINDINGS: Lung bases: Unremarkable. No mass. No consolidation. ABDOMEN: Liver: Unremarkable. No mass. Gallbladder and bile ducts: Unremarkable. No calcified stones. No ductal dilation. Pancreas: Unremarkable. No mass. No ductal dilation. Spleen: Unremarkable. No splenomegaly. Adrenals: Unremarkable. No mass. Kidneys and ureters: Unremarkable. No solid mass. No hydronephrosis. Stomach and bowel: Diverticulosis, without acute diverticulitis. No small bowel obstruction. No free intraperitoneal air. PELVIS: Appendix: No findings to suggest acute appendicitis. Bladder: Minimal wall thickening of the urinary bladder, likely from under distention. Reproductive: Unremarkable as visualized. ABDOMEN and PELVIS: Intraperitoneal space: Unremarkable. No free air. No significant fluid collection. Bones/joints: Degenerative changes of the spine. No acute fracture. No dislocation. Soft tissues: Unremarkable. Vasculature: Atherosclerotic changes of the aorta. No abdominal aortic aneurysm. Lymph nodes: Unremarkable. No enlarged lymph nodes. IMPRESSION: Diverticulosis, without acute diverticulitis. No small bowel obstruction. No free intraperitoneal air. Hospital Course (1) Babesiasis: Pt is a 82 y/o male with PMH of DVT, diabetes, and GERD presented with decreased appetite, insomnia, and general malaise found to be positive for Babesiosis with Lyme equivocal. #Tick borne illnesses - babesiasis, likely lyme as well Anaplasma negative. Babesia positive. Lyme equivocal. Treating for presumed Lyme on top of Babesia. Titers/PCR/bands pending - follow up outpatient. Will continue with 10 days total of doxy 100 mg BID and atovaquone 750 mg BID - last dose 07/21. Will do 7 days total of azithromycin - now with decreased dose to 250 mg QD - last dose 07/18. #Anemia Baseline appears 10-11 with known history of chronic LON. Hemoglobin 8.9. Low suspicion for active bleeding. Likely in the setting of tick borne illnesses. Holding ferrous sulfate in the setting of active infection. Would resume iron supplementation once well. Would recommend outpatient CBC. #Thrombocytopenia Likely consumptive coagulopathy 2/2 acute tickborne infection. Would recommend outpatient CBC. #TAYLOR BIPAP HS #DM A1C 5.8% 12/2022. SSI while inpatient. Resume metformin on discharge #HTN Continue losartan #HLD Continue simvastatin #BPH Continue alfuzosin, finasteride #Elevated alk phosphatase Alk Phos 212, likely reactive to acute infection. low suspicion for acute biliary disease at present. Would rec f/u CMP. #Hyperbilirubinemia TB 1.6 without acute signs of jaundice. Would rec f/u CMP (2) Tick-borne disease: (3) Decreased oral intake: (4) Anemia: (5) Thrombocytopenia: (6) TAYLOR (obstructive sleep apnea): (7) Diabetic peripheral neuropathy associated with type 2 diabetes mellitus: (8) Hypertension: (9) Hyperlipidemia: (10) BPH with obstruction/lower urinary tract symptoms: (11) Elevated alkaline phosphatase level: (12) Hyperbilirubinemia: Total Time Total Time Spent Total Time Spent (In Minutes): <30 Discharge Plan Discharge Items Patient Disposition: Home - Self-Care Reason For Visit: TICKBORNE ILLNESS Discharge Diagnosis: babesiosis Activity: Per Instructions section Non-emergency contact: Primary Care Provider Call non-emergency contact if: you have any medication questions and your symptoms worsen Follow-up/Referrals: Ana Lindo DO [Primary Care Provider] - 07/23/23 8:20 am Diet: Carb Consistent or DM2 Addtl Attending Provider Instructions: You were admitted to the hospital for a vague illness. You were found to have Babesiosis - a tick borne illness. You were also found to have results that may be consistent with Lyme disease. We are awaiting clarifying tests. You were treated with 3 antimicrobials - doxycycline, atovaquone, and azithromycin. We will continue the doxycycline and atovaquone for a total of 10 days. We will continue the azithromycin for a total of 7 days. Doxycycline may make you more susceptible to sunlight. Wear sunscreen and avoid direct sun exposure while taking this medication. It may also cause some stomach upset, so take this medication with food and plenty of water. You may continue to feel fatigued and run down for the next couple of weeks. Make sure to get plenty of rest and drink plenty of fluids. A discharge summary will be sent to your primary care physician to ensure continuity of care. Please bring this discharge summary with you to your next office appointment so that your provider can review it at that time. Follow-up appointments: We have requested a follow-up appointment with your primary care physician within one week of discharge. Please call their office if you do not hear from them. Keep all your follow-up appointments as already scheduled. If you cannot make an appointment, notify your provider. Medications: Your medication list has been reviewed and reconciled upon discharge to ensure accuracy and continuity of care. An updated list of all your medications is included with your hospital discharge paperwork. Please review this list closely, and make note of any changes. We sent a new medication called Doxycycline to your pharmacy. Take 100 mg twic e a day for 9 days. We sent a new medication called Atovaquone to your pharmacy. Take 5 mL twice a day for 9 days We sent a new medication called Azithromycin to your pharmacy. Take 250 mg daily for 6 days. If you have any issues filling these prescriptions, please call [phone] and ask to leave a message for Dr. Roman. Take your medications as instructed; do not skip a dose of your medicines. Make sure all of your doctors know every medicine you are taking (including [id number] medicines, vitamins, and supplements). Call your primary care provider before taking any new medicines (including over- the-counter medicines, vitamins, and supplements), because some of these may interact with your current medications, or may make your symptoms worse. Tell your primary care provider if you cannot afford your medications. CONTACT YOUR PRIMARY CARE PROVIDER if you experience any of the following: fevers or chills nausea or vomiting difficulty following your treatment plan, or difficulty taking medications CALL 911 OR GO TO THE EMERGENCY DEPARTMENT if you experience any of the following: Sudden, severe abdominal pain or nausea/vomiting Severe chest pain, or chest pain that radiates (moves) to your jaw or arm Sudden, severe shortness of breath or difficulty breathing Thank you for allowing us to participate in your care Pending Studies at Discharge: Yes Stand-Alone Forms: [facility], Smoking Cessation Medications and DC Order Prescriptions: New atovaquone [Mepron] 750 mg/5 mL Suspension 750 mg PO Q12H 9 Days Qty: 90 0RF doxycycline hyclate 100 mg capsule 100 mg PO BID 9 Days Qty: 17 0RF azithromycin 250 mg tablet 250 mg PO DAILY 6 Days Qty: 6 0RF Continued aspirin [Adult Low Dose Aspirin] 81 mg tablet,delayed release (DR/EC) 81 mg PO HS (DME) BiPap Machine Misc See Rx Instructions .Route Qty: 1 0RF Rx Instructions: As directed (DME) BiPap Supplies Misc See Rx Instructions .Route Qty: 1 0RF Rx Instructions: As directed losartan 100 mg tablet 100 mg PO QPM Qty: 90 1RF simvastatin 20 mg tablet 20 mg PO QAM Qty: 90 1RF metformin 1,000 mg tablet 1,000 mg PO BID Qty: 180 1RF potassium chloride 20 mEq tablet extended release 20 meq PO QAM Qty: 90 1RF infusion/ arthritis 1 dose IV UD Rx Instructions: once per month tramadol 50 mg tablet 50 mg PO Q6H PRN (Reason: pain) Qty: 30 0RF alfuzosin [Uroxatral] 10 mg tablet extended release 24 hr 10 mg PO DAILY Qty: 90 3RF Rx Instructions: administer after the same meal each day finasteride 5 mg tablet 5 mg PO DAILY Qty: 90 3RF oxybutynin chloride 15 mg tablet extended release 24hr 15 mg PO DAILY Qty: 90 3RF [id number] Tablet 1 tab PO QPM docusate sodium [Stool Softener] 100 mg capsule 100 mg PO QPM Rx Instructions: PM acetaminophen 500 mg Tablet 1,000 mg PO Q6H PRN (Reason: Pain) nabumetone 500 mg tablet 500 mg PO BID calcium carbonate-vitamin D3 [Calcium 600 + D(3)] 600 mg-10 mcg (400 unit) Tab let 1 tab PO DAILY Held ferrous sulfate 325 mg (65 mg iron) Tablet 325 mg PO QAM Hold Instructions: Resume on 07/26/23. hold while actively ill Discharge Orders: Discharge Order (Routine); Ordered 07/12/23 Ordered By: Melly Roman Admission Data Admit Date/Time: 07/11/23 01:09 Attending Provider: Jonathan Myrick Admit Provider: Pako Cancino Primary Care Provider: Ana Lindo Other Providers: Torrie Vargas ; Khoa Little Other Interventions: Discharge Summary Assessment (RN) Last Done: 07/12/23 14:50 Supervising Physician Co-Signing Physician Notes I personally examined the patient and verified all galindo points of history and exam, discussed case, and agree with decision making with Dr Roman feeling better and would like to go home. Vitals noted, in general he is awake and alert pleasant no distress. HEENT normocephalic atraumatic mucous membranes moist. Breathing unlabored no accessory muscle use good effort. Skin shows no rashes no pallor or icterus. Neuro without focal deficits. Labs and diagnostics noted tickborne illnessesconfirmed babesiosis, possible Lymestable for home, have t o treat for both with atovaquone/azithromycin covering for the BCI, and doxycycline covering for possible Lymeoutlined treatment plan and possible side effects with patient, he expressed good understanding. Safe/stable for home. otherwise as above Resident Activity Tracking Resident Involvement: Resident Care Provided Care Provided: Adult Hospital Medicine
--- NOTE | 2023-07-12 18:24 | Billing Data ---
Date of Service July 12, 2023 Coding Level of Care Code 71462 IN/OBS DISCH 30 MIN/LESS
[2023-07-14 02:27] LABS: 18KDIGG Band REACTIVE; 23KDIGG Band NON-REACTIVE; 23KDIGM Band REACTIVE; 28KDIGG Band NON-REACTIVE; 30KDIGG Band NON-REACTIVE; 39KDIGG Band REACTIVE; 39KDIGM Band REACTIVE; 41KDIGG Band REACTIVE; 41KDIGM Band NON-REACTIVE; 45KDIGG Band NON-REACTIVE; 58KDIGG Band NON-REACTIVE; 66KDIGG Band NON-REACTIVE; 93KDIGG Band REACTIVE; Lyme Antibodies, WB IgG NEGATIVE (NEGATIVE); Lyme Antibodies, WB IgM POSITIVE (NEGATIVE)
[2023-07-14 19:27] LABS: Babesia microti DNA Detected (Not Detected)
[2023-07-15 22:37] LABS: Babesia microti DNA Detected (Not Detected)
== END 2023-07-12 15:31 | disposition home or self-care (01) | DRG 869 ==
LOC: ED 19:13 → 3W 07-11 01:09 → SUATTDRO 07-11 01:09 → 3W 07-11 02:32

== ENCOUNTER 2025-08-27 15:48 | Inpatient (IN) ==
--- NOTE | 2025-08-27 16:06 | Emergency Department Note ---
Impression & Plan Back pain, Ambulatory dysfunction, Blood glucose elevated ED Provider Note NAME: ROGE WOODSON AGE: 84 SEX: M : 1940 ARRIVES VIA: Ambulance INFORMANT: Patient ED PROVIDER(S): Jonathan Munoz DO CHIEF COMPLAINT: Back pain HPI: Patient is an 84-year-old male with a past medical history of DVT, GERD, thrombocytopenia, chronic steroid use who presents to the ER for lower back pain. He notes it started yesterday. He fell about 2 weeks ago but had no pain from this. His pain is over the left lower sacrum to the lower lumbar region. He notes it is worse with twisting, turning, and bending. Improves with rest but does not venkat. He does take apixaban. Denies any headache or change in vision. No chest pain or shortness of breath. He notes that he cannot get up and move secondary to the pain. No weakness or numbness in the arms or legs. He is able to urinate and move his bowels. No fevers. ADDITIONAL HISTORY OBTAINED: Per HPI Chronic Medical/Social Conditions Affecting Care: Per HPI PAST MEDICAL HISTORY:See Below PAST SURGICAL HISTORY:See Below FAMILY HISTORY:See Below SOCIAL HISTORY:See Below HOME MEDICATIONS:See Below ALLERGIES:See Below VITALS:See Below PHYSICAL EXAMINATION: GENERAL: Sitting up in bed, alert, well appearing, well nourished, no distress, non-toxic EYE EXAM: normal conjunctiva. OROPHARYNX: mucous membranes are moist LUNGS: Clear to auscultation. Normal chest wall mechanics HEART: no murmurs, S1 normal and S2 normal ABDOMEN: abdomen soft, non-tender, normo-active bowel sounds, no masses, no rebound or guarding. BACK: Back is symmetrical on inspection and there is no deformity, no midline tenderness, no CVA tenderness but tenderness in the left lower lumbar/sacral region tracking up to L4-L5 paraspinally UPPER EXTREMITIES: upper extremities are grossly normal. LOWER EXTREMITIES: No pitting edema. Flexion extension of bilateral hips knees ankles and EHL intact. Gross sensation intact. NEURO EXAM: Normal sensorium, cranial nerves II-XII grossly intact, normal speech, no gross weakness of arms, no gross weakness of legs. MEDICAL DECISION MAKING: Patient is a 84-year-old male who presents ER for back pain. IV was established and blood work is obtained. Labs show mild leukocytosis 13,000. No significant anemia. ESR was elevated at 67. BMP with LFTs bilirubin was unremarkable. Lipase was normal. Pro-Tung at 0.16. CRP was elevated at 8.7. CT of the lumbar spine and abdomen pelvis suggested possible discitis. Patient was given 2 doses of IV narcotics. Updated at bedside. Was given Toradol as well. Discussed case with the hospitalist following discussing it with spine who recommended admission to the hospitalist for further evaluation MRIs. Dr. Hensley recommended holding on any IV antibiotics until MRI was obtained. Consults/Care Managements Discussions: Per [facility] Triage Nursing notes reviewed. Limited review of prior medical records performed Vital Signs: reviewed and remarkable for no significant abnormalities Differential diagnosis: Differential diagnoses include major intracranial, cervical, spinal, thoracic, abdominal, pelvic and neurologic injury. Fracture, contusion, sprain, strain, laceration, abrasions included as well. ER treatment provided: See below Diagnostics interpreted by me include EKG and cardiac monitoring as listed below: -Cardiac Monitoring: An order was placed for continuous cardiac monitoring. The monitor shows a rate of 60 with sinus rhythm. -ECG: none -Laboratory studies:Interpreted by me as stated above in MDM and shown below. Imaging studies: Xrays: As interpreted by me:none CTs show: CT abdomen pelvis per my preliminary interpretation shows no obvious obstruction CT lumbar spine as described above Procedures:none Critical Care: None Past Med/Surg History Problem List (Updated 08/27/25 @ 22:58 by Jonathan Munoz DO) Blood glucose elevated (Acute) Ambulatory dysfunction (Acute) Back pain (Acute) Psoriatic arthritis Microscopic hematuria Diabetic ulcer of left foot (Acute) Diabetic ulcer of right foot (Acute) Diabetic ulcer of toe of right foot, limited to breakdown of skin (Acute) Urinary incontinence History of DVT (deep vein thrombosis) Hiatal hernia GERD (gastroesophageal reflux disease) Well controlled, stable Atrial flutter Cervical facet joint syndrome Cervical dystonia Post-laminectomy syndrome Posterior cervical laminectomy and fusion C3-6 Thrombocytopenia TAYLOR (obstructive sleep apnea) Could not tolerate BIPAP Diabetic peripheral neuropathy associated with type 2 diabetes mellitus Osteoarthritis History of elevated prostate specific antigen (PSA) Diabetic nephropathy associated with type 2 diabetes mellitus Venous insufficiency (chronic) (peripheral) (Chronic) Dupuytren's contracture of left hand Nocturnal hypoxemia Depression (Chronic) Hypertension controlled, stable per pt Hyperlipidemia Chronic steroid use Psoriatic arthritis Diabetes mellitus, type 2 (Chronic) NIDDM - controlled Psoriatic arthropathy Does use prednisone- possibly weaning off prior to surgery Hepatic steatosis 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 History of compression fracture of spine 2019, had cervical laminectomy 04/2020, no recent issues Chronic anemia Chronic/stable, PCP monitoring 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) Medical History Paroxysmal atrial flutter Anemia Loss of protective sensation of skin of deformed foot Dizziness Anemia Chronic pain Tachycardia COVID-19 Hyperbilirubinemia Venous stasis ulcers Trigger finger of right hand 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 S/P arthroscopy of shoulder (01/2016) Left S/P left knee arthroscopy (10/2015) H/O elbow surgery R/L S/P hammer toe correction (11/2013) arthrodesis R toe Status post carpal tunnel release of both wrists H/O bilateral cataract extraction History of tonsillectomy S/P laparoscopic cholecystectomy (07/2018) Hx of difficult intubation - History of difficult intubation in 2007 at [facility]. Per record review they were unable to intubate on 3 attempts. Fast track LMA were unsuccessful. Were able to mask vent with 2 people. Intubated with nasal fiberoptic. - Anesthesia records from 2018 lap adelita showed Grade 1 view with Glidescope #4, smooth intubation - Right shoulder arthroscopy, RCR (12/11/21): LMA#5 placed without difficulty + PNB at [facility]. Family History Mother Cardiac disorder Myocardial infarction Aunt Family history of diabetes mellitus Uncle Family history of diabetes mellitus Other No family history of adverse response to anesthesia Denies family history of Ovarian cancer Prostate cancer Breast cancer Colorectal cancer Social History Smoking Status: Former smoker Tobacco Type: Cigarettes Age Started Using Tobacco: 14; Age Quit Using Tobacco: 44; packs per day: 2; Second Hand Exposure: No; Do You Dip or Chew Tobacco: No; Hx Alcohol Use: No Hx Substance Use: No Preferred Language: Upper Sorbian Communication Ability: Effective Visual Impairment: Limited Hearing Ability: Hard of Hearing Software Qa Manager Required: No Beliefs That Will Affect Care: None marital status: Current Living Situation: Spouse Current Living Situation Comment: lives with current occupational status: retired How many Children do You have: 4 How many Children do You have Comment: one son are local and able to assist with care as needed. Other children live further away. Feels Safe at Home: Yes Diet: diabetic caffeine: Yes during the past year weight has: remained stable Dental Care, Regularly: Yes Physical Activity Frequency: Daily Physical Activity Frequency Comment: very active around house Seatbelt Use: always Sunscreen Use: Yes Assistive Devices: Cane and Walker Allergies Allergies Allergy/AdvReac Type Severity Reaction Status Date / Time amoxicillin Allergy Intermediate lip Verified 08/27/25 20:40 swelling clavulanic acid Allergy Intermediate lip Verified 08/27/25 20:40 swelling Sulfa (Sulfonamide Allergy Intermediate lip Verified 08/27/25 20:40 Antibiotics) swelling VINCE Inhibitors Allergy Unknown unknown Verified 08/27/25 20:40 clarithromycin AdvReac Intermediate GI upset Verified 08/27/25 20:40 Home Meds Home Medications Medication Instructions Recorded Confirmed aspirin 81 mg tablet,delayed 81 mg PO HS 06/29/18 08/27/25 release (Adult Low Dose Aspirin) [id number]-dvienn tablet 1 tab PO QPM 09/05/20 08/27/25 docusate sodium 100 mg capsule 100 mg PO QPM 01/21/23 08/27/25 (Stool Softener) acetaminophen 500 mg tablet 500 mg PO Q6H PRN Pain 09/21/23 08/27/25 amlodipine 10 mg tablet 10 mg PO DAILY 09/21/23 08/27/25 folic acid 1 mg tablet 1 mg PO DAILY 03/07/24 08/27/25 duloxetine 60 mg capsule,delayed 60 mg PO DAILY 07/31/24 08/27/25 release duloxetine 30 mg capsule,delayed 30 mg PO DAILY 02/19/25 08/27/25 release ferrous sulfate 325 mg (65 mg 325 mg PO BID 05/31/25 08/27/25 iron) tablet Previous Rx's Medication Instructions Recorded baclofen 10 mg tablet 10 mg PO BID #60 tabs 09/12/24 finasteride 5 mg tablet 5 mg PO DAILY #90 tabs 02/21/25 alfuzosin 10 mg tablet,extended 10 mg PO DAILY #90 tabs 02/27/25 release 24 hr (Uroxatral) losartan 100 mg tablet 100 mg PO QPM #90 tabs 03/06/25 metformin 1,000 mg tablet 1,000 mg PO BID #180 tabs 03/27/25 magnesium oxide 400 mg (241.3 mg 400 mg PO QAM #30 tabs 04/29/25 magnesium) tablet metoprolol succinate 25 mg 25 mg PO DAILY #30 tabs 05/23/25 tablet,extended release 24 hr vibegron 75 mg tablet (Gemtesa) 75 mg PO DAILY #90 tabs 05/25/25 pantoprazole 40 mg tablet,delayed 40 mg PO DAILY #90 tabs 06/21/25 release potassium chloride 20 mEq 20 meq PO QAM #90 tabs 07/03/25 tablet,extended release amiodarone 200 mg tablet 200 mg PO DAILY #90 tabs 07/24/25 apixaban 5 mg tablet (Eliquis) 5 mg PO BID #180 tabs 07/31/25 simvastatin 20 mg tablet 20 mg PO QAM #90 tabs 08/02/25 furosemide 20 mg tablet (Lasix) 20 mg PO DAILY #30 tabs 08/03/25 Results & Data (ED) Vital Signs Vital Signs - 24 hr 08/27/25 15:43 08/27/25 15:54 08/27/25 16:03 Temperature 36.9 C Temperature Source Oral Pulse Rate 61 64 Pulse Rate from SpO2 Sensor 61 Respiratory Rate 15 23 Respiratory Effort / Characteristics Non-Labored Spontaneous Respiratory Depth Normal Blood Pressure 152/78 H 152/78 H Blood Pressure Mean 102 105 Pulse Oximetry 97 91 Oxygen Delivery Method Room Air Sepsis Recent Fever Within 48 Hours No Sepsis New/Unexplained Change in Mental Status No Sepsis Action Taken by Nursing No Action Required 08/27/25 16:06 08/27/25 16:15 08/27/25 16:30 Temperature Temperature Source Pulse Rate 65 Pulse Rate from SpO2 Sensor 65 Respiratory Rate 29 H Respiratory Effort / Characteristics Respiratory Depth Blood Pressure 126/60 Blood Pressure Mean 82 Pulse Oximetry 94 91 Oxygen Delivery Method Room Air Sepsis Recent Fever Within 48 Hours Sepsis New/Unexplained Change in Mental Status Sepsis Action Taken by Nursing 08/27/25 16:39 08/27/25 16:42 08/27/25 17:00 Temperature Temperature Source Pulse Rate 71 71 Pulse Rate from SpO2 Sensor 71 72 Respiratory Rate 22 22 Respiratory Effort / Characteristics Respiratory Depth Blood Pressure 116/56 L Blood Pressure Mean 97 Pulse Oximetry 97 97 Oxygen Delivery Method Sepsis Recent Fever Within 48 Hours Sepsis New/Unexplained Change in Mental Status Sepsis Action Taken by Nursing 08/27/25 17:00 08/27/25 17:06 08/27/25 17:54 Temperature Temperature Source Pulse Rate 75 Pulse Rate from SpO2 Sensor 75 Respiratory Rate 22 Respiratory Effort / Characteristics Respiratory Depth Blood Pressure 116/56 L 153/77 H Blood Pressure Mean 97 107 Pulse Oximetry 96 Oxygen Delivery Method Sepsis Recent Fever Within 48 Hours Sepsis New/Unexplained Change in Mental Status Sepsis Action Taken by Nursing 08/27/25 18:11 08/27/25 18:15 08/27/25 18:18 Temperature Temperature Source Pulse Rate 79 80 Pulse Rate from SpO2 Sensor 79 80 Respiratory Rate 21 23 Respiratory Effort / Characteristics Respiratory Depth Blood Pressure 153/81 H Blood Pressure Mean 110 Pulse Oximetry 93 91 Oxygen Delivery Method Sepsis Recent Fever Within 48 Hours Sepsis New/Unexplained Change in Mental Status Sepsis Action Taken by Nursing 08/27/25 18:30 08/27/25 18:30 08/27/25 18:30 Temperature Temperature Source Pulse Rate Pulse Rate from SpO2 Sensor Respiratory Rate Respiratory Effort / Characteristics Respiratory Depth Blood Pressure 142/75 H 142/75 H 142/75 H Blood Pressure Mean 103 103 103 Pulse Oximetry Oxygen Delivery Method Sepsis Recent Fever Within 48 Hours Sepsis New/Unexplained Change in Mental Status Sepsis Action Taken by Nursing 08/27/25 18:33 08/27/25 18:45 08/27/25 18:55 Temperature Temperature Source Pulse Rate 79 84 83 Pulse Rate from SpO2 Sensor 79 84 Respiratory Rate 22 23 Respiratory Effort / Characteristics Respiratory Depth Blood Pressure Blood Pressure Mean Pulse Oximetry 95 94 Oxygen Delivery Method Sepsis Recent Fever Within 48 Hours Sepsis New/Unexplained Change in Mental Status Sepsis Action Taken by Nursing 08/27/25 19:00 08/27/25 19:00 08/27/25 19:00 Temperature Temperature Source Pulse Rate 83 Pulse Rate from SpO2 Sensor 83 Respiratory Rate 21 Respiratory Effort / Characteristics Respiratory Depth Blood Pressure 139/71 139/71 Blood Pressure Mean 113 113 Pulse Oximetry 94 Oxygen Delivery Method Sepsis Recent Fever Within 48 Hours Sepsis New/Unexplained Change in Mental Status Sepsis Action Taken by Nursing 08/27/25 19:12 08/27/25 19:27 08/27/25 19:48 Temperature Temperature Source Pulse Rate 82 88 84 Pulse Rate from SpO2 Sensor 83 85 84 Respiratory Rate 24 19 18 Respiratory Effort / Characteristics Respiratory Depth Blood Pressure Blood Pressure Mean Pulse Oximetry 94 91 91 Oxygen Delivery Method Sepsis Recent Fever Within 48 Hours Sepsis New/Unexplained Change in Mental Status Sepsis Action Taken by Nursing 08/27/25 20:00 08/27/25 20:03 08/27/25 20:18 Temperature Temperature Source Pulse Rate 85 86 Pulse Rate from SpO2 Sensor 85 88 Respiratory Rate 24 22 Respiratory Effort / Characteristics Respiratory Depth Blood Pressure 156/93 H Blood Pressure Mean 107 Pulse Oximetry 93 92 Oxygen Delivery Method Sepsis Recent Fever Within 48 Hours Sepsis New/Unexplained Change in Mental Status Sepsis Action Taken by Nursing 08/27/25 20:30 08/27/25 20:36 08/27/25 20:42 Temperature Temperature Source Pulse Rate Pulse Rate from SpO2 Sensor 92 H 90 Respiratory Rate Respiratory Effort / Characteristics Respiratory Depth Blood Pressure 152/75 H Blood Pressure Mean 121 Pulse Oximetry 92 90 Oxygen Delivery Method Sepsis Recent Fever Within 48 Hours Sepsis New/Unexplained Change in Mental Status Sepsis Action Taken by Nursing 08/27/25 20:48 08/27/25 21:00 08/27/25 21:00 Temperature Temperature Source Pulse Rate Pulse Rate from SpO2 Sensor 90 Respiratory Rate Respiratory Effort / Characteristics Respiratory Depth Blood Pressure 134/77 134/77 Blood Pressure Mean 94 94 Pulse Oximetry 87 L Oxygen Delivery Method Sepsis Recent Fever Within 48 Hours Sepsis New/Unexplained Change in Mental Status Sepsis Action Taken by Nursing 08/27/25 21:03 08/27/25 21:21 08/27/25 21:30 Temperature Temperature Source Pulse Rate 89 86 Pulse Rate from SpO2 Sensor 89 87 Respiratory Rate 23 27 H Respiratory Effort / Characteristics Respiratory Depth Blood Pressure 147/77 H Blood Pressure Mean 110 Pulse Oximetry 92 87 L Oxygen Delivery Method Sepsis Recent Fever Within 48 Hours Sepsis New/Unexplained Change in Mental Status Sepsis Action Taken by Nursing 08/27/25 21:30 08/27/25 22:36 Temperature Temperature Source Pulse Rate 84 88 Pulse Rate from SpO2 Sensor 84 Respiratory Rate 20 Respiratory Effort / Characteristics Respiratory Depth Blood Pressure Blood Pressure Mean Pulse Oximetry 94 Oxygen Delivery Method Sepsis Recent Fever Within 48 Hours Sepsis New/Unexplained Change in Mental Status Sepsis Action Taken by Nursing Laboratory Data 08/27/25 16:14 08/27/25 16:14 Lab Results 08/27/25 Range/Units 16:14 WBC 13.00 H (4.8-10.8) K/ul RBC 4.68 L (4.70-6.10) M/uL Hgb 12.5 L (14.0-18.0) g/dl Hct 39.5 L (42.0-52.0) % MCV 84.4 (80.0-100.0) fL MCH 26.7 (25.0-34.0) pg MCHC 31.6 L (32.0-36.0) g/dL RDW Std Deviation 47.5 H (36.4-46.3) fL RDW Coeff of Caren 15.5 H (11.5-14.5) % Plt Count 202 (130-400) K/uL MPV 10.1 (9.4-12.4) fL Immature Gran % (Auto) 0.5 % Neut % (Auto) 72.6 % Lymph % (Auto) 15.0 % Mellette % (Auto) 11.2 % Eos % (Auto) 0.5 % Baso % (Auto) 0.2 % Neut # (Auto) 9.42 H (1.40-6.50) K/uL Lymph # (Auto) 1.95 (1.20-3.40) K/uL Mellette # (Auto) 1.46 H (0.11-0.59) K/uL Eos # (Auto) 0.07 (0.00-0.50) K/uL Baso # (Auto) 0.03 (0.00-0.20) K/uL Immature Gran # (Auto) 0.07 (0.01-0.20) K/uL ESR 67 H (0-20) mm/hr Sodium 136 (136-145) mmol/L Potassium 4.5 (3.5-5.1) mmol/L Chloride 100 (98-107) mmol/L Carbon Dioxide 27 (21-32) mmol/L Anion Gap 9 (3-11) BUN 33 H (6-23) mg/dl Creatinine 1.13 (0.6-1.4) mg/dl Est Cr Clr Drug Dosing 47.6 ml/min eGFR 63.30 BUN/Creatinine Ratio 29.2 H (10-20) Glucose 190 H (70-99(Fasting)) mg/dl Uric Acid 4.0 (2.6-7.2) mg/dl Calcium 9.7 (8.6-10.3) mg/dl Total Bilirubin 0.6 (0.2-1.0) mg/dl AST 19 (13-39) U/L ALT 14 (7-52) U/L Alkaline Phosphatase 96 (34-104) U/L C-Reactive Protein 8.76 H (0-0.5) mg/dl Total Protein 8.2 (6.0-8.3) gm/dl Albumin 3.8 (3.4-5.0) gm/dl Globulin 4.4 H (2.5-4.0) gm/dl Albumin/Globulin Ratio 0.9 (0.9-2) Lipase 4 L (11-82) U/L Procalcitonin 0.16 (0-0.5) ng/ml Administered Medications Discontinued Medications Sodium Chloride (Nss) 500 mls @ 999 mls/hr IV .Q31M ONE Stop: 08/27/25 16:31 Last Infusion: 08/27/25 16:46 Dose: Infused Documented By: doc Admin: 08/27/25 16:15 Dose: 999 mls/hr Documented By: doc Ioversol (Optiray 320 100ml) 95 ml IV ONCE ONE Stop: 08/27/25 17:47 Last Admin: 08/27/25 17:46 Dose: 95 ml Documented By: SHIRA Ketorolac Tromethamine (Ketorolac Tromethamine 15 Mg/Ml Vial) 10 mg IV NOW ONE Stop: 08/27/25 16:02 Last Admin: 08/27/25 16:17 Dose: 10 mg Documented By: mls Morphine Sulfate (Morphine Sulfate 2 Mg/Ml Carp) 2 mg IV NOW STA Stop: 08/27/25 16:02 Last Admin: 08/27/25 16:17 Dose: 2 mg Documented By: mls Morphine Sulfate (Morphine Sulfate 2 Mg/Ml Carp) 2 mg IV NOW STA Stop: 08/27/25 18:57 Last Admin: 08/27/25 19:05 Dose: 2 mg Documented By: mls Imaging Data Radiologist's Impression: Abdomen/Pelvis CT 08/27/25 16:01 Technique: Axial computed tomography images were obtained of the abdomen and pelvis after the administration of intravenous contrast. Comparison is made to the prior CT dated 07/31/2025. Findings: The liver is overall of normal size, attenuation, and contour with no sign of cirrhosis or significant fatty infiltration. No liver mass lesion is seen. The portal vein is patent. The gallbladder has been removed. No bile duct dilatation is noted. The spleen is of normal size. No focal splenic lesion is evident. The pancreas appears normal with no sign of acute or chronic pancreatitis and no mass lesion noted. The pancreatic duct is of normal caliber. The adrenal glands appear unremarkable. There are small bilateral renal calculi, measuring 2-3 mm. There is no hydronephrosis or perinephric stranding. No renal mass lesion is identified. There is a 1.7 cm left renal cyst There is a mild infrarenal abdominal aortic aneurysm, measuring up to 3.2 cm. No abdominal adenopathy is seen. The stomach appears normal. There is no sign of small bowel obstruction. The colon appears unremarkable. There is no definite sign of appendicitis. No free intraperitoneal fluid or air is identified. No distal ureteral or bladder calculi are seen. No bladder mass lesion is evident. The iliac arteries are of normal caliber. No pelvic adenopathy is noted. The prostate is at the upper limit of normal in size There is mild subsegmental atelectasis in both lung bases. Lumbar degenerative disc disease is seen. There is an unchanged T12 compression fracture. No focal osseous lesion is seen Impression: 1. Unchanged mild abdominal aortic aneurysm 2. Bilateral renal calculi and left renal cyst Electronically signed by Tan Seymour 08-27-2025 7:[address] 08/27/25 16:01 CT lumbar spine with contrast Technique: Postcontrast Axial images of the lumbar spine. Coronal and sagittal reformatted images made available for review Comparison made to prior exam dated 05/03/2021 Findings: Vertebral bodies are normal in height and aligned without fracture or dislocation. Subtle inflammatory changes in front of the L2-L3 interspace new since prior exam discogenic disc disease seen at L2-L3 L1-L2 and L3-L4. Severe facet arthropathy L2-L3 L3-L4 and L4-L5. Moderate bilateral facet arthropathy at L5-S1. Diffuse canal stenosis at L2-L3, L3-L4, and L4-L5. Impression Subtle inflammatory changes in the soft tissues anterior to the L2-L3 interspace. Findings may represent very early discitis. Correlate clinically with sedimentation rate and C-reactive protein. If clinically warranted, MRI with contrast may be obtained. Electronically signed by Jonathan Rosenbaum 08-27-2025 8:04 PM Discharge Plan Visit Data Chief Complaint: Back Injury/Pain ED Provider: Jonathan Munoz Discharge Problem: Back pain, Ambulatory dysfunction, Blood glucose elevated Condition: Fair Forms Stand Alone Forms: [facility] Prescriptions Prescriptions: No Action amlodipine 10 mg tablet 10 mg PO DAILY aspirin [Adult Low Dose Aspirin] 81 mg tablet,delayed release (DR/EC) 81 mg PO HS baclofen 10 mg tablet 10 mg PO BID Qty: 60 1RF finasteride 5 mg tablet 5 mg PO DAILY Qty: 90 3RF losartan 100 mg tablet 100 mg PO QPM Qty: 90 1RF metformin 1,000 mg tablet 1,000 mg PO BID Qty: 180 1RF Gemtesa 75 mg tablet 75 mg PO DAILY Qty: 90 3RF ferrous sulfate 325 mg (65 mg iron) tablet 325 mg PO BID Hold Instructions: Resume on 07/26/23. hold while actively ill pantoprazole 40 mg tablet,delayed release (DR/EC) 40 mg PO DAILY Qty: 90 1RF potassium chloride 20 mEq tablet extended release 20 meq PO QAM Qty: 90 1RF amiodarone 200 mg tablet 200 mg PO DAILY Qty: 90 0RF Eliquis 5 mg tablet 5 mg PO BID Qty: 180 3RF simvastatin 20 mg tablet 20 mg PO QAM Qty: 90 1RF furosemide [Lasix] 20 mg tablet 20 mg PO DAILY Qty: 30 2RF folic acid 1 mg tablet 1 mg PO DAILY duloxetine 60 mg capsule,delayed release(DR/EC) 60 mg PO DAILY duloxetine 30 mg capsule,delayed release(DR/EC) 30 mg PO DAILY alfuzosin [Uroxatral] 10 mg tablet extended release 24 hr 10 mg PO DAILY Qty: 90 3RF Rx Instructions: administer after the same meal each day metoprolol succinate 25 mg tablet extended release 24 hr 25 mg PO DAILY Qty: 30 5RF [id number] Tablet 1 tab PO QPM docusate sodium [Stool Softener] 100 mg capsule 100 mg PO QPM Rx Instructions: PM acetaminophen 500 mg tablet 500 mg PO Q6H PRN (Reason: Pain) magnesium oxide 400 mg (241.3 mg magnesium) Tablet 400 mg PO QAM Qty: 30 0RF Referrals Referrals: Ana Lindo DO [Primary Care Provider] - Discharge Problem: Back pain Qualifiers: Back pain location: low back pain Chronicity: acute Back pain laterality: u nspecified Sciatica presence: unspecified whether sciatica present Qualified Code(s): M54.50 - Low back pain, unspecified
[2025-08-27] MEDS: SODIUM CHLORIDE 0.9% 500 ML IV ONE (16:15)
[2025-08-27] MEDS: MoRPHine SULFATE 2 MG/ML CARP IV STA ×2 (16:17→19:05)
[2025-08-27] MEDS: KETOROLAC TROMETHAMINE 15 MG/ML VIAL IV ONE (16:17)
[2025-08-27 16:42] LABS: Hematocrit (blood only) 39.5 % (42.0-52.0); Hemoglobin 12.5 g/dl (14.0-18.0); Immature Granulocytes # (auto) 0.07 K/uL (0.01-0.20); Immature Granulocytes % (auto) 0.5 %; Mean Corpuscular Hemoglobin 26.7 pg (25.0-34.0); Mean Corpuscular Volume 84.4 fL (80.0-100.0); Platelet Count 202 K/uL (130-400); RDW Standard Deviation 47.5 fL (36.4-46.3); Red Blood Count 4.68 M/uL (4.70-6.10); White Blood Count 13.00 K/ul (4.8-10.8)
[2025-08-27 16:49] LABS: Alanine Aminotransferase 14.0 U/L (7-52); Albumin Globulin Ratio 0.9 (0.9-2); Albumin Level 3.8 gm/dl (3.4-5.0); Alkaline Phosphatase 96.0 U/L (34-104); Anion Gap 9.0 (3-11); Bilirubin,Total 0.6 mg/dl (0.2-1.0); Blood Urea Nitrogen 33.0 mg/dl (6-23); Calcium 9.7 mg/dl (8.6-10.3); Carbon Dioxide 27.0 mmol/L (21-32); Chloride 100.0 mmol/L (98-107); Creatinine Clr Calc Pharmacy 47.6 ml/min; Globulin 4.4 gm/dl (2.5-4.0); Glucose 190.0 mg/dl (70-99(Fasting)); Lipase 4.0 U/L (11-82); Potassium 4.5 mmol/L (3.5-5.1); Sodium 136.0 mmol/L (136-145); Total Protein 8.2 gm/dl (6.0-8.3)
[2025-08-27] MEDS: OPTIRAY 320 100ml IV ONE (17:46)
--- NOTE | 2025-08-27 19:48 | CT Scan Report ---
Technique: Axial computed tomography images were obtained of the abdomen and pelvis after the administration of intravenous contrast. Comparison is made to the prior CT dated 07/31/2025. Findings: The liver is overall of normal size, attenuation, and contour with no sign of cirrhosis or significant fatty infiltration. No liver mass lesion is seen. The portal vein is patent. The gallbladder has been removed. No bile duct dilatation is noted. The spleen is of normal size. No focal splenic lesion is evident. The pancreas appears normal with no sign of acute or chronic pancreatitis and no mass lesion noted. The pancreatic duct is of normal caliber. The adrenal glands appear unremarkable. There are small bilateral renal calculi, measuring 2-3 mm. There is no hydronephrosis or perinephric stranding. No renal mass lesion is identified. There is a 1.7 cm left renal cyst There is a mild infrarenal abdominal aortic aneurysm, measuring up to 3.2 cm. No abdominal adenopathy is seen. The stomach appears normal. There is no sign of small bowel obstruction. The colon appears unremarkable. There is no definite sign of appendicitis. No free intraperitoneal fluid or air is identified. No distal ureteral or bladder calculi are seen. No bladder mass lesion is evident. The iliac arteries are of normal caliber. No pelvic adenopathy is noted. The prostate is at the upper limit of normal in size There is mild subsegmental atelectasis in both lung bases. Lumbar degenerative disc disease is seen. There is an unchanged T12 compression fracture. No focal osseous lesion is seen Impression: 1. Unchanged mild abdominal aortic aneurysm 2. Bilateral renal calculi and left renal cyst Electronically signed by Tan Seymour 08-27-2025 7:47 PM
--- NOTE | 2025-08-27 20:04 | CT Scan Report ---
CT lumbar spine with contrast Technique: Postcontrast Axial images of the lumbar spine. Coronal and sagittal reformatted images made available for review Comparison made to prior exam dated 05/03/2021 Findings: Vertebral bodies are normal in height and aligned without fracture or dislocation. Subtle inflammatory changes in front of the L2-L3 interspace new since prior exam discogenic disc disease seen at L2-L3 L1-L2 and L3-L4. Severe facet arthropathy L2-L3 L3-L4 and L4-L5. Moderate bilateral facet arthropathy at L5-S1. Diffuse canal stenosis at L2-L3, L3-L4, and L4-L5. Impression Subtle inflammatory changes in the soft tissues anterior to the L2-L3 interspace. Findings may represent very early discitis. Correlate clinically with sedimentation rate and C-reactive protein. If clinically warranted, MRI with contrast may be obtained. Electronically signed by Jonathan Rosenbaum 08-27-2025 8:04 PM
--- NOTE | 2025-08-27 22:23 | History & Physical Report ---
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 His evaluation reveals mild leukocytosis of 13, mild anemia with H&H 12.5/39.5. ESR 67, still pending CRP results. Procalcitonin is normal. CTAP is without acute findings. His L-spine CT does reveal subtle inflammatory changes of the soft tissues in the anterior L2-L3 interspace. Admission for intractable back pain, pending MRI to rule out discitis. #Intractable back pain/? 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 Did have a fall approximately 2 weeks ago and was seen by chiropractor, worsening back pain that had initially improved. W/o worse numbness/tingling (h/o neuropathy), saddle anesthesia, or incontinence of bowel or bladder (does have urinary incontinence at baseline). No infectious symptoms. Admission for intractable back pain, cannot manage at home, with concerns for early discitis, pending workup to r/o. - CBC WBC 13, ESR 67, CRP 8.76; procal 0.16; Uric acid pending - CBC am - CTAP unchanged mild AAA, bilateral renal calculi and L renal cyst - L spine CT subtle inflammatory changes in soft tissues anterior to L2-L3 interspace (? early discitis) - Fall precautions - Heating pad prn - Acetaminophen prn fever/pain, morphine moderate/severe pain -- adjust as necessary - Dexamethasone 10mg IV x 1 - MRI lumbar degenerative changes with lumbar disc herniations, prevertebral soft tissue edema with fluid collection L2-L3, L paraspinal muscle edema L3/L4, abnormal signal intensity with enhancement end plate L3-L4, ? infective/inflammatory, no bone marrow edema - ? need for abx -- patient without infectious symptoms and with normal procal even in setting of slightly increased leukocytosis, however abnormal MRI -- did add on Vancomycin + cefepime for coverage - PT/OT consulted - appreciate assistance #T2DM H/o DMT2, at home regimen includes metformin. - Glucose on admission 190; Most recent A1C 05/2025 @ 5.1% - Hold metformin - SSI with target BSG range 110-140mg/dL, CF 30, carb ratio 10 - BSG ACHS - Adjust regimen as needed #A-flutter- Amiodarone, Eliquis, metoprolol - continue #HTN- Amlodipine, furosemide, losartan - continue #BPH/Urinary incontinence- Alfuzosin, finasteride, vibegron - continue #Psych- Duloxetine - continue #HLD- Simvastatin - continue #Anemia- H/H 12.5/39.5; Ferrous sulfate, folic acid - continue, trend CBC #GERD- Pantoprazole - continue Dispo: Admit, med/sx VTE prophylaxis: On Eliquis - continue This document was dictated utilizing [employer]. Please excuse any gramm atical errors that may be secondary to use of this software. 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 Patient does not recall any trauma or falls. 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 He describes it as a sharp pain that comes and goes, mainly with movement. On the pain scale rating up to 10, he jokes that his pain is a 32 on the scale, that states it is a 10 out of 10 on the pain scale. He states that occasionally he has pain in his neck as well that is worse with movement, he frequently gets injections in this area every 3 months. He does admit to numbness of his bilateral legs below the knees, but states that this is secondary to his neuropathy has been unchanged for many years. He has some urinary incontinence at baseline, this is not worsening. No sensation changes to the saddle region. 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 Again, he does not recall any trauma or falls. Unclear when the sudden worsening of pain. No infectious symptoms to include fever/chills, wounds to the area, or significant swelling. He had been on chronic prednisone in the past for psoriatic arthritis, no longer on this. 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 ED evaluation reveals CBC with mild leukocytosis 13, H&H 12.5/39.5, ESR 67; CMP BUN 33, ratio 29.2, glucose 190; CRP pending; procalcitonin 0.16; CTAP unchanged mild AAA, bilateral renal calculi and L renal cyst; L-spine CT subtle inflammatory changes soft tissues anterior to L2-L3 interspace (? Early discitis).; Provided with 500 mL NSS, morphine 4 g IV, and ketorolac 10 mg IV in ED. Please see Dr. Reddy's attestation for adjustments/additions to treatment plan. Allergies Allergy/AdvReac Type Severity Reaction Status Date / Time amoxicillin Allergy Intermediate lip Verified 08/27/25 20:40 swelling clavulanic acid Allergy Intermediate lip Verified 08/27/25 20:40 swelling Sulfa (Sulfonamide Allergy Intermediate lip Verified 08/27/25 20:40 Antibiotics) swelling VINCE Inhibitors Allergy Unknown unknown Verified 08/27/25 20:40 clarithromycin AdvReac Intermediate GI upset Verified 08/27/25 20:40 Home Medications Medication Instructions Recorded Confirmed Type aspirin 81 mg tablet,delayed 81 mg PO HS 06/29/18 08/27/25 History release (Adult Low Dose Aspirin) uylujenaktya-wiwfjnjq-ornnpw tablet 1 tab PO QPM 09/05/20 08/27/25 History docusate sodium 100 mg capsule 100 mg PO QPM 01/21/23 08/27/25 History (Stool Softener) acetaminophen 500 mg tablet 500 mg PO Q6H PRN Pain 09/21/23 08/27/25 History amlodipine 10 mg tablet 10 mg PO DAILY 09/21/23 08/27/25 History folic acid 1 mg tablet 1 mg PO DAILY 03/07/24 08/27/25 History duloxetine 60 mg capsule,delayed 60 mg PO DAILY 07/31/24 08/27/25 History release baclofen 10 mg tablet 10 mg PO BID #60 tabs 09/12/24 08/27/25 Rx duloxetine 30 mg capsule,delayed 30 mg PO DAILY 02/19/25 08/27/25 History release finasteride 5 mg tablet 5 mg PO DAILY #90 tabs 02/21/25 08/27/25 Rx alfuzosin 10 mg tablet,extended 10 mg PO DAILY #90 tabs 02/27/25 08/27/25 Rx release 24 hr (Uroxatral) losartan 100 mg tablet 100 mg PO QPM #90 tabs 03/06/25 08/27/25 Rx metformin 1,000 mg tablet 1,000 mg PO BID #180 tabs 03/27/25 08/27/25 Rx magnesium oxide 400 mg (241.3 mg 400 mg PO QAM #30 tabs 04/29/25 08/27/25 Rx magnesium) tablet metoprolol succinate 25 mg 25 mg PO DAILY #30 tabs 05/23/25 08/27/25 Rx tablet,extended release 24 hr vibegron 75 mg tablet (Gemtesa) 75 mg PO DAILY #90 tabs 05/25/25 08/27/25 Rx ferrous sulfate 325 mg (65 mg 325 mg PO BID 05/31/25 08/27/25 History iron) tablet pantoprazole 40 mg tablet,delayed 40 mg PO DAILY #90 tabs 06/21/25 08/27/25 Rx release potassium chloride 20 mEq 20 meq PO QAM #90 tabs 07/03/25 08/27/25 Rx tablet,extended release amiodarone 200 mg tablet 200 mg PO DAILY #90 tabs 07/24/25 08/27/25 Rx apixaban 5 mg tablet (Eliquis) 5 mg PO BID #180 tabs 07/31/25 08/27/25 Rx simvastatin 20 mg tablet 20 mg PO QAM #90 tabs 08/02/25 08/27/25 Rx furosemide 20 mg tablet (Lasix) 20 mg PO DAILY #30 tabs 08/03/25 08/27/25 Rx Past Med/Surg History Problem List (Updated 08/28/25 @ 17:04 by Echo Tam MD) MSSA bacteremia Lumbar discitis Intractable back pain Blood glucose elevated (Acute) Ambulatory dysfunction (Acute) Back pain (Acute) Psoriatic arthritis Microscopic hematuria Diabetic ulcer of left foot (Acute) Diabetic ulcer of right foot (Acute) Diabetic ulcer of toe of right foot, limited to breakdown of skin (Acute) Urinary incontinence History of DVT (deep vein thrombosis) Hiatal hernia GERD (gastroesophageal reflux disease) Well controlled, stable Atrial flutter Cervical facet joint syndrome Cervical dystonia Post-laminectomy syndrome Posterior cervical laminectomy and fusion C3-6 Thrombocytopenia TAYLOR (obstructive sleep apnea) Could not tolerate BIPAP Diabetic peripheral neuropathy associated with type 2 diabetes mellitus Osteoarthritis History of elevated prostate specific antigen (PSA) Diabetic nephropathy associated with type 2 diabetes mellitus Venous insufficiency (chronic) (peripheral) (Chronic) Dupuytren's contracture of left hand Nocturnal hypoxemia Depression (Chronic) Hypertension controlled, stable per pt Hyperlipidemia Chronic steroid use Psoriatic arthritis Diabetes mellitus, type 2 (Chronic) NIDDM - controlled Psoriatic arthropathy Does use prednisone- possibly weaning off prior to surgery Hepatic steatosis 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 History of compression fracture of spine 2019, had cervical laminectomy 04/2020, no recent issues Chronic anemia Chronic/stable, PCP monitoring 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) Medical History Paroxysmal atrial flutter Anemia Loss of protective sensation of skin of deformed foot Dizziness Anemia Chronic pain Tachycardia COVID-19 Hyperbilirubinemia Venous stasis ulcers Trigger finger of right hand 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 S/P arthroscopy of shoulder (01/2016) Left S/P left knee arthroscopy (10/2015) H/O elbow surgery R/L S/P hammer toe correction (11/2013) arthrodesis R toe Status post carpal tunnel release of both wrists H/O bilateral cataract extraction History of tonsillectomy S/P laparoscopic cholecystectomy (07/2018) Hx of difficult intubation - History of difficult intubation in 2007 at [facility]. Per record review they were unable to intubate on 3 attempts. Fast track LMA were unsuccessful. Were able to mask vent with 2 people. Intubated with nasal fiberoptic. - Anesthesia records from 2018 lap adelita showed Grade 1 view with Glidescope #4, smooth intubation - Right shoulder arthroscopy, RCR (12/11/21): LMA#5 placed without difficulty + PNB at [facility]. Family History Mother Cardiac disorder Myocardial infarction Aunt Family history of diabetes mellitus Uncle Family history of diabetes mellitus Other No family history of adverse response to anesthesia Denies family history of Ovarian cancer Prostate cancer Breast cancer Colorectal cancer Social History Smoking Status: Former smoker Tobacco Type: Cigarettes Age Started Using Tobacco: 14; Age Quit Using Tobacco: 44; packs per day: 2; Second Hand Exposure: No; Do You Dip or Chew Tobacco: No; Hx Alcohol Use: No Hx Substance Use: No Preferred Language: Slovak Communication Ability: Effective Visual Impairment: Limited Hearing Ability: Hard of Hearing Naturopathic Physician Required: No Beliefs That Will Affect Care: None marital status: Current Living Situation: Spouse Current Living Situation Comment: lives with current occupational status: retired How many Children do You have: 4 How many Children do You have Comment: one son are local and able to assist with care as needed. Other children live further away. Feels Safe at Home: Yes Safety Concerns: Feels Safe At This Time Diet: diabetic caffeine: Yes during the past year weight has: remained stable Dental Care, Regularly: Yes Physical Activity Frequency: Daily Physical Activity Frequency Comment: very active around house Seatbelt Use: always Sunscreen Use: Yes Assistive Devices: Cane and Walker Review of Systems Review of Systems: All systems reviewed & are unremarkable except as noted in Subjective Physical Exam Physical Exam: General: No acute distress Skin: Warm and dry Head: Normocephalic, atraumatic Eyes: PERRL, conjunctivae clear, sclera non-icteric ENT: External ear and ear canal without swelling; nose atraumatic; dentures for dentition, tongue normal appearance, pharynx normal Neck: Supple, no LAD Cardio: RRR, no M/G/R, S1 and S2 normal Resp: No respiratory distress, Lungs CTA in all lobes bilaterally, no wheezes, rales, or rhonchi Abdomen: Soft, symmetric, nontender; No masses or hepatosplenomegaly; Bowel sounds normoactive MSK: Pt unable to adjust to access his back 2/2 pain; negative straight leg raise bilaterally; No deformities; pulses palpable and equal; no edema. Neuro: Awake, alert; Sensation intact bilaterally; CN grossly intact Psych: Appropriate mood and affect; good judgement and insight. Results & Data Results & Data Vital Signs (Past 12 Hours) Vital Signs Temp Pulse Resp BP Pulse Ox O2 Del Method 08/27/25 21:30 84 20 94 08/27/25 21:30 147/77 H 08/27/25 21:21 86 27 H 87 L 08/27/25 21:03 89 23 92 08/27/25 21:00 134/77 08/27/25 21:00 134/77 08/27/25 20:48 87 L 08/27/25 20:42 90 08/27/25 20:36 92 08/27/25 20:30 152/75 H 08/27/25 20:18 86 22 92 08/27/25 20:03 85 24 93 08/27/25 20:00 156/93 H 08/27/25 19:48 84 18 91 08/27/25 19:27 88 19 91 08/27/25 19:12 82 24 94 08/27/25 19:00 139/71 08/27/25 19:00 139/71 08/27/25 19:00 83 21 94 08/27/25 18:55 83 08/27/25 18:45 84 23 94 08/27/25 18:33 79 22 95 08/27/25 18:30 142/75 H 08/27/25 18:30 142/75 H 08/27/25 18:30 142/75 H 08/27/25 18:18 80 23 91 08/27/25 18:15 79 21 93 08/27/25 18:11 153/81 H 08/27/25 17:54 153/77 H 08/27/25 17:06 75 22 96 08/27/25 17:00 116/56 L 08/27/25 17:00 116/56 L 08/27/25 16:42 71 22 97 08/27/25 16:39 71 22 97 08/27/25 16:30 126/60 08/27/25 16:15 65 29 H 91 08/27/25 16:06 94 Room Air 08/27/25 16:03 64 23 91 08/27/25 15:54 152/78 H 08/27/25 15:43 36.9 C 61 15 152/78 H 97 Room Air Laboratory Results 08/27/25 21:28 Aerobic Blood Culture - Pending Blood Anaerobic Blood Culture - Pending 08/27/25 21:00 Aerobic Blood Culture - Pending Blood Anaerobic Blood Culture - Pending 08/27/25 16:14 WBC 13.00 H RBC 4.68 L Hgb 12.5 L Hct 39.5 L MCV 84.4 MCH 26.7 MCHC 31.6 L RDW Std Deviation 47.5 H RDW Coeff of Caren 15.5 H Plt Count 202 MPV 10.1 Immature Gran % (Auto) 0.5 Neut % (Auto) 72.6 Lymph % (Auto) 15.0 Mckinley % (Auto) 11.2 Eos % (Auto) 0.5 Baso % (Auto) 0.2 Neut # (Auto) 9.42 H Lymph # (Auto) 1.95 Mckinley # (Auto) 1.46 H Eos # (Auto) 0.07 Baso # (Auto) 0.03 Immature Gran # (Auto) 0.07 ESR 67 H Sodium 136 Potassium 4.5 Chloride 100 Carbon Dioxide 27 Anion Gap 9 BUN 33 H Creatinine 1.13 Est Cr Clr Drug Dosing 47.6 eGFR 63.30 BUN/Creatinine Ratio 29.2 H Glucose 190 H Calcium 9.7 Total Bilirubin 0.6 AST 19 ALT 14 Alkaline Phosphatase 96 Total Protein 8.2 Albumin 3.8 Globulin 4.4 H Albumin/Globulin Ratio 0.9 Lipase 4 L Procalcitonin 0.16 Diagnostic Findings Abdomen/Pelvis CT 08/27/25 16:01 Technique: Axial computed tomography images were obtained of the abdomen and pelvis after the administration of intravenous contrast. Comparison is made to the prior CT dated 07/31/2025. Findings: The liver is overall of normal size, attenuation, and contour with no sign of cirrhosis or significant fatty infiltration. No liver mass lesion is seen. The portal vein is patent. The gallbladder has been removed. No bile duct dilatation is noted. The spleen is of normal size. No focal splenic lesion is evident. The pancreas appears normal with no sign of acute or chronic pancreatitis and no mass lesion noted. The pancreatic duct is of normal caliber. The adrenal glands appear unremarkable. There are small bilateral renal calculi, measuring 2-3 mm. There is no hydronephrosis or perinephric stranding. No renal mass lesion is identified. There is a 1.7 cm left renal cyst There is a mild infrarenal abdominal aortic aneurysm, measuring up to 3.2 cm. No abdominal adenopathy is seen. The stomach appears normal. There is no sign of small bowel obstruction. The colon appears unremarkable. There is no definite sign of appendicitis. No free intraperitoneal fluid or air is identified. No distal ureteral or bladder calculi are seen. No bladder mass lesion is evident. The iliac arteries are of normal caliber. No pelvic adenopathy is noted. The prostate is at the upper limit of normal in size There is mild subsegmental atelectasis in both lung bases. Lumbar degenerative disc disease is seen. There is an unchanged T12 compression fracture. No focal osseous lesion is seen Impression: 1. Unchanged mild abdominal aortic aneurysm 2. Bilateral renal calculi and left renal cyst Electronically signed by Tan Seymour 08-27-2025 7:[address] 08/27/25 16:01 CT lumbar spine with contrast Technique: Postcontrast Axial images of the lumbar spine. Coronal and sagittal reformatted images made available for review Comparison made to prior exam dated 05/03/2021 Findings: Vertebral bodies are normal in height and aligned without fracture or dislocation. Subtle inflammatory changes in front of the L2-L3 interspace new since prior exam discogenic disc disease seen at L2-L3 L1-L2 and L3-L4. Severe facet arthropathy L2-L3 L3-L4 and L4-L5. Moderate bilateral facet arthropathy at L5-S1. Diffuse canal stenosis at L2-L3, L3-L4, and L4-L5. Impression Subtle inflammatory changes in the soft tissues anterior to the L2-L3 interspace. Findings may represent very early discitis. Correlate clinically with sedimentation rate and C-reactive protein. If clinically warranted, MRI with contrast may be obtained. Electronically signed by Jonathan Rosenbaum 08-27-2025 8:04 PM Medications Administered 500 mL NSS Morphine 4 mg IV Ketorolac 10 mg IV Code Status & VTE Plan Code Status Full Supervising Physician Co-Signing Physician Notes Attending addendum: I have physically supervised the AMALIA's activities, and agree with the H&P unless as otherwise noted. Assessment and Plan: The patient is an 84-year-old male with a past medical history including nephropathy, hypertension, hyperlipidemia, atrial flutter on Eliquis, psoriatic arthritis, BPH, elevated PSA, urinary incontinence, venous insufficiency, chronic anemia, TAYLOR, postlaminectomy syndrome, diabetic ulcers, and cervical dystonia. He presents to the emergency department with an acute worsening of chronic low back pain, with not having had any significant pain for the past 10 years. He denies any recent travels or sick exposures. He Reports having had a fall about [address] scan of the lumbar spine showed subtle inflammatory changes of the soft tissues in the anterior L2-L3 interspace. There was concern regarding the possibility of discitis, therefore an MRI of the lumbar spine has been ordered and is pending at this time. Intractable low back pain/question discitis/Psoriatic arthritis/postlaminectomy syndrome.- Patient with 1 day of significant low back pain. Follows with Pain Management Service. He was seen by chiropractor after a fall 2 weeks ago for worsening back pain, t hat had initially improved. No loss of bowel or bladder control. CT of abdomen and pelvis shows an unchanged mild AAA, bilateral renal calculi, and a left renal cyst CT lumbar spine shows subtle inflammatory changes in the soft tissue anterior to the L2-L3 interspace, with? Early discitis Fall precautions Heating pad as needed Acetaminophen every 6 hours as needed fever or pain Morphine IV 4 mg every 4 hours as needed for moderate to severe pain. Changed to Dilaudid if insufficient pain control Give dexamethasone 10 mg IV x 1 now then 4 mg IV every 12 hours MRI of lumbar spine shows multilevel degenerative changes prevertebral soft tissue edema with fluid collection L2-L3, left paraspinal muscle lipidemia and L3-L4, abnormal signal intensity with effacement of endplate L3-L4 question in fective/inflammatory, no bone marrow edema placed on vancomycin IV and cefepime IV Consult PT/OT Consult infectious disease Diabetes mellitus type 2- Hold metformin Placed on Accu-Cheks with NovoLog SSI as noted Atrial flutter/hypertension- Continue amiodarone, Eliquis, metoprolol, amlodipine, furosemide, and losartan BPH/urinary incontinence- Continue alfuzosin, finasteride, vibegron Hyperlipidemia- Continue simvastatin Remaining orders and notations as noted in PG Care Time/CCT Total # of Minutes Spent Total Time Spent with Patient: Total time spent is greater than 50% in coordination of care (as documented) at patient's floor/unit and/or counseling patient: Coding Level of Care Code 63559 INT INP/OBS CARE MIN Diagnoses Intractable back pain M54.9 Diabetes mellitus, type 2 E11.9
[2025-08-27 22:49] LABS: Uric Acid 4.0 mg/dl (2.6-7.2)
[2025-08-27] MEDS: MoRPHine SULFATE 4 MG/ML 1 ML CARP\\VIAL IV PRN (23:01)
[2025-08-27] MEDS ORDERED: dexAMETHasone 10 MG in SYRINGE 0 ML IV STA (23:02)
[2025-08-27] MEDS: dexAMETHasone**PF** 10 MG/ML VIAL IV STA (23:16)
[2025-08-28] MEDS: GADOBUTROL 65ML VIAL IV ONE (00:26)
[2025-08-28] MEDS ORDERED: MELATONIN 3 MG TAB PO PRN (00:51)
[2025-08-28] MEDS ORDERED: ONDANSETRON INJ 2 MG/ML 2 ML VIAL IV PRN (00:51)
[2025-08-28] MEDS: ACETAMINOPHEN 500 MG TAB PO PRN (01:06)
[2025-08-28] MEDS ORDERED: GLUCOSE 40% GEL 15 GM TUBE PO PRN (01:13)
[2025-08-28] MEDS ORDERED: GLUCOSE 10 TAB/TUBE PO PRN (01:13)
[2025-08-28] MEDS ORDERED: CARBOHYDRATES FOR HYPOGLYCEMIA PO PRN (01:13)
[2025-08-28] MEDS ORDERED: DEXTROSE 50% 50 ML SYRINGE IV PRN (01:13)
[2025-08-28] MEDS ORDERED: GLUCAGON FOR INJ 1 MG VIAL SQ PRN (01:13)
--- NOTE | 2025-08-28 02:08 | Magnetic Resonance Report ---
EXAM: MR lumbar spine wo/w con CLINICAL HISTORY: intractable back pain, r/o discitis TECHNIQUE: Multisequential and multiplanar images of the lumbar spine were obtained for review without and with contrast. COMPARISON: CT, 05/03/2021 14:10:32 HEADRIG SAWYER FINDINGS: There is no abnormal bone marrow signal to suggest fracture. The pars interarticularis are intact. The conus medullaris terminates at approximately L1 and demonstrates normal size and signal. Multiple level disc desiccation, facet arthrosis, and anterior marginal osteophytes are seen. Prevertebral soft tissue edema with mild fluid collection is seen at the L2 and L3 vertebral level, with left paraspinal muscle edema at the L3/L4 level. Abnormal signal intensity with enhancement seen extending along left paraspinal space to left epidural space. Mild enhancement of end plate also seen along L3-L4 disc. L1/L2 level: Posterior diffuse disc bulge causing effacement of the anterior thecal sac and bilateral mild neural foraminal narrowing. L2/L3 level: Posterior diffuse disc bulge causing effacement of the anterior thecal sac and bilateral mild neural foraminal narrowing. L3/L4 level: Posterior diffuse disc bulge causing effacement of the anterior thecal sac, significant spinal canal stenosis, compression over traversing nerve roots, and bilateral ligamentum flavum hypertrophy leading to bilateral moderate neural foraminal narrowing with indentation over bilateral exiting nerve roots. L4/L5 level: Asymmetric, left more than right disc bulge causing effacement of the anterior thecal sac, indentation over left traversing nerve roots, and bilateral ligamentum flavum hypertrophy leading to moderate neural foraminal narrowing. IMPRESSION: 1. Significant lumbar spondylo-degenerative changes with lumbar disc herniations as described above?stable. 2. Prevertebral soft tissue edema with mild fluid collection is seen at the L2 and L3 vertebral level, with left paraspinal muscle edema at the L3/L4 level. Abnormal signal intensity with enhancement seen extending along left paraspinal space to left epidural space. Mild enhancement of end plate also seen along L3-L4 disc?likely infective/inflammatory etiology. 3. No bone marrow edema in other vertebral bodies. Electronically signed by Deep Arias 08-28-2025 02:07 AM
[2025-08-28] MEDS ORDERED: VANCOMYCIN CONSULT ACTIVE PRN (03:17)
[2025-08-28] MEDS: CEFEPIME 2000MG 2,000 MG/20 ML SYR IV SCH (04:35)
[2025-08-28] MEDS: VANCOMYCIN HCL 1,500 MG in SODIUM CHLORIDE 0.9% 500 ML IV ONE (04:36)
[2025-08-28] MEDS: HYDROmorphone INJ 0.5 MG/0.5 ML SYR IV STA (05:15)
--- NOTE | 2025-08-28 07:05 | Pharmacy Report ---
Pharmacy PK ABX Note - Date of Service August 28, 2025 - Assessment and Plan Assessment 84 year old M receiving vancomycin/cefepime for treatment of possible discitis. Pertinent microbiologic data includes: blood cultures pending. Day # 1 of antimicrobial therapy. Plan Vancomycin * Loading dose: 1500 mg IV x 1 * Maintenance dose: 1250 mg IV every 24 hours * Regimen is predicted to achieve target AUC/STEVE of 400-600 mg/L.hr * Random level ordered for: 08/29/25 @1200 Pharmacy will continue to follow and will adjust dose/frequency as necessary. Thank you. Pharmacy has transitioned to AUC monitoring for vancomycin. AUC/STEVE is the preferred PK/PD target and is associated with decreased risk of nephrotoxicity compared to traditional trough targets.
[2025-08-28] MEDS ORDERED: VANCOMYCIN HCL 1,250 MG in SODIUM CHLORIDE 0.9% 250 ML IV SCH ×2 (09:00→18:00)
[2025-08-28] MEDS: INSULIN ASPART PER UNIT CHARGE SC SCH (09:04)
[2025-08-28] MEDS: SIMVASTATIN 20 MG TAB PO SCH (09:06)
[2025-08-28] MEDS: FINASTERIDE 5 MG TAB PO SCH (09:06)
[2025-08-28] MEDS: MAGNESIUM OXIDE 400 MG TAB PO SCH (09:06)
[2025-08-28] MEDS: METOPROLOL SUCC 25MG EXT REL TAB PO SCH (09:06)
[2025-08-28] MEDS: VIBEGRON 75 MG TAB PO SCH (09:06)
[2025-08-28] MEDS: TAMSULOSIN HCL 0.4 MG CAP PO SCH (09:07)
[2025-08-28] MEDS: APIXABAN 5 MG TABLET PO SCH (09:07)
[2025-08-28] MEDS: FUROSEMIDE 20 MG TAB PO SCH (09:07)
[2025-08-28] MEDS: BACLOFEN 10 MG TAB PO SCH (09:07)
[2025-08-28] MEDS: FERROUS SULFATE 325 MG TAB PO SCH (09:07)
[2025-08-28] MEDS: FOLIC ACID 1 MG TAB PO SCH (09:08)
[2025-08-28] MEDS: AMIODARONE 200 MG TAB PO SCH (09:08)
[2025-08-28] MEDS: POTASSIUM CHLORIDE CRTAB 20 MEQ TABCR PO SCH (09:15)
--- NOTE | 2025-08-28 09:31 | Orthopedic Consultation ---
Date of Service August 28, 2025 Assessment & Plan (1) Lumbar discitis: Plan * Case/imaging reviewed and discussed with Dr Hensley * Recommend continued treatment of presumed discitis with IV antibiotics,ID consult * Consider IR biopsy, however has already started empiric antibiotic treatment so will likely be negative * TLSO brace ordered * Weight bearing status: WBAT bilateral lower extremity. No bending, lifting, twisting through the lumbar spine * Daily treatment: Physical Therapy/ Occupational Therapy per protocol * Pain control * Disposition: TBD * Remainder care per primary team * Will continue to follow, if patient develops any new neurologic symptoms would consider a laminectomy however no obvious abscess to drain and currently denies any radicular pain, chronic stenosis at L3-4. History of Present Illness Reason for Consultation: Lumbar discitis Requesting Physician: . Attending Physician: Tyson Archibald MD . Patient is a 84 y/o male with low back pain. PMH including T2DM with prior ulcers and nephropathy, HTN, HLD, A-flutter on Eliquis, psoriatic arthritis, BPH , elevated PSA, urinary incontinence, venous insufficiency, chronic anemia, TAYLOR, postlaminectomy syndrome, and cervical dystonia. Presents to hospital with approximately 2-day history of worsening low back pain. Patient does not recall any trauma or falls. States that approximately 1-2 days ago sudden onset of midline low back pain that has worsened prompting presentation to ED. Current workup including CBC with mild leukocytosis 13, lumbar CT subtle inflammatory changes soft tissue anterior to L2-3 interspace concerning for early discitis. Admitted to hospital medicine team for further workup. Ortho-spine consulted for management recommendations. At time of exam patient lying in bed, no acute distress. Endorses constant moderate pain of the midline low back. Baseline neuropathy affecting bilateral feet. Denies any radicular pain, tingling or numbness of bilateral lower extremity beyond baseline. Denies any recent traumas or falls. Denies any fevers or chills. Patient does have chronic wound to right foot which he sees wound clinic for treatment. Allergies Allergy/AdvReac Type Severity Reaction Status Date / Time amoxicillin Allergy Intermediate lip Verified 08/27/25 20:40 swelling clavulanic acid Allergy Intermediate lip Verified 08/27/25 20:40 swelling Sulfa (Sulfonamide Allergy Intermediate lip Verified 08/27/25 20:40 Antibiotics) swelling VINCE Inhibitors Allergy Unknown unknown Verified 08/27/25 20:40 clarithromycin AdvReac Intermediate GI upset Verified 08/27/25 20:40 Home Medications Medication Instructions Recorded Confirmed Type aspirin 81 mg tablet,delayed 81 mg PO HS 06/29/18 08/27/25 History release (Adult Low Dose Aspirin) irqibyfdcyou-zvkdifaa-srhhdy tablet 1 tab PO QPM 09/05/20 08/27/25 History docusate sodium 100 mg capsule 100 mg PO QPM 01/21/23 08/27/25 History (Stool Softener) acetaminophen 500 mg tablet 500 mg PO Q6H PRN Pain 09/21/23 08/27/25 History amlodipine 10 mg tablet 10 mg PO DAILY 09/21/23 08/27/25 History folic acid 1 mg tablet 1 mg PO DAILY 03/07/24 08/27/25 History duloxetine 60 mg capsule,delayed 60 mg PO DAILY 07/31/24 08/27/25 History release baclofen 10 mg tablet 10 mg PO BID #60 tabs 09/12/24 08/27/25 Rx duloxetine 30 mg capsule,delayed 30 mg PO DAILY 02/19/25 08/27/25 History release finasteride 5 mg tablet 5 mg PO DAILY #90 tabs 02/21/25 08/27/25 Rx alfuzosin 10 mg tablet,extended 10 mg PO DAILY #90 tabs 02/27/25 08/27/25 Rx release 24 hr (Uroxatral) losartan 100 mg tablet 100 mg PO QPM #90 tabs 03/06/25 08/27/25 Rx metformin 1,000 mg tablet 1,000 mg PO BID #180 tabs 03/27/25 08/27/25 Rx magnesium oxide 400 mg (241.3 mg 400 mg PO QAM #30 tabs 04/29/25 08/27/25 Rx magnesium) tablet metoprolol succinate 25 mg 25 mg PO DAILY #30 tabs 05/23/25 08/27/25 Rx tablet,extended release 24 hr vibegron 75 mg tablet (Gemtesa) 75 mg PO DAILY #90 tabs 05/25/25 08/27/25 Rx ferrous sulfate 325 mg (65 mg 325 mg PO BID 05/31/25 08/27/25 History iron) tablet pantoprazole 40 mg tablet,delayed 40 mg PO DAILY #90 tabs 06/21/25 08/27/25 Rx release potassium chloride 20 mEq 20 meq PO QAM #90 tabs 07/03/25 08/27/25 Rx tablet,extended release amiodarone 200 mg tablet 200 mg PO DAILY #90 tabs 07/24/25 08/27/25 Rx apixaban 5 mg tablet (Eliquis) 5 mg PO BID #180 tabs 07/31/25 08/27/25 Rx simvastatin 20 mg tablet 20 mg PO QAM #90 tabs 08/02/25 08/27/25 Rx furosemide 20 mg tablet (Lasix) 20 mg PO DAILY #30 tabs 08/03/25 08/27/25 Rx Past Med/Surg History Problem List (Updated 08/28/25 @ 09:30 by Rodo Grant PA-C) Lumbar discitis Intractable back pain Blood glucose elevated (Acute) Ambulatory dysfunction (Acute) Back pain (Acute) Psoriatic arthritis Microscopic hematuria Diabetic ulcer of left foot (Acute) Diabetic ulcer of right foot (Acute) Diabetic ulcer of toe of right foot, limited to breakdown of skin (Acute) Urinary incontinence History of DVT (deep vein thrombosis) Hiatal hernia GERD (gastroesophageal reflux disease) Well controlled, stable Atrial flutter Cervical facet joint syndrome Cervical dystonia Post-laminectomy syndrome Posterior cervical laminectomy and fusion C3-6 Thrombocytopenia TAYLOR (obstructive sleep apnea) Could not tolerate BIPAP Diabetic peripheral neuropathy associated with type 2 diabetes mellitus Osteoarthritis History of elevated prostate specific antigen (PSA) Diabetic nephropathy associated with type 2 diabetes mellitus Venous insufficiency (chronic) (peripheral) (Chronic) Dupuytren's contracture of left hand Nocturnal hypoxemia Depression (Chronic) Hypertension controlled, stable per pt Hyperlipidemia Chronic steroid use Psoriatic arthritis Diabetes mellitus, type 2 (Chronic) NIDDM - controlled Psoriatic arthropathy Does use prednisone- possibly weaning off prior to surgery Hepatic steatosis 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 History of compression fracture of spine 2019, had cervical laminectomy 04/2020, no recent issues Chronic anemia Chronic/stable, PCP monitoring 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) Medical History Paroxysmal atrial flutter Anemia Loss of protective sensation of skin of deformed foot Dizziness Anemia Chronic pain Tachycardia COVID-19 Hyperbilirubinemia Venous stasis ulcers Trigger finger of right hand 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 S/P arthroscopy of shoulder (01/2016) Left S/P left knee arthroscopy (10/2015) H/O elbow surgery R/L S/P hammer toe correction (11/2013) arthrodesis R toe Status post carpal tunnel release of both wrists H/O bilateral cataract extraction History of tonsillectomy S/P laparoscopic cholecystectomy (07/2018) Hx of difficult intubation - History of difficult intubation in 2007 at [facility]. Per record review they were unable to intubate on 3 attempts. Fast track LMA were unsuccessful. Were able to mask vent with 2 people. Intubated with nasal fiberoptic. - Anesthesia records from 2018 lap adelita showed Grade 1 view with Glidescope #4, smooth intubation - Right shoulder arthroscopy, RCR (12/11/21): LMA#5 placed without difficulty + PNB at [facility]. Family History Mother Cardiac disorder Myocardial infarction Aunt Family history of diabetes mellitus Uncle Family history of diabetes mellitus Other No family history of adverse response to anesthesia Denies family history of Ovarian cancer Prostate cancer Breast cancer Colorectal cancer Social History Smoking Status: Former smoker Tobacco Type: Cigarettes Age Started Using Tobacco: 14; Age Quit Using Tobacco: 44; packs per day: 2; Second Hand Exposure: No; Do You Dip or Chew Tobacco: No; Hx Alcohol Use: No Hx Substance Use: No Preferred Language: Serbian Communication Ability: Effective Visual Impairment: Limited Hearing Ability: Hard of Hearing Donor Processor Required: No Beliefs That Will Affect Care: None marital status: Current Living Situation: Spouse Current Living Situation Comment: lives with current occupational status: retired How many Children do You have: 4 How many Children do You have Comment: one son are local and able to assist with care as needed. Other children live further away. Feels Safe at Home: Yes Safety Concerns: Feels Safe At This Time Diet: diabetic caffeine: Yes during the past year weight has: remained stable Dental Care, Regularly: Yes Physical Activity Frequency: Daily Physical Activity Frequency Comment: very active around house Seatbelt Use: always Sunscreen Use: Yes Assistive Devices: Cane, Denture - Upper, Denture - Lower and Walker Review of Systems All systems reviewed & are unremarkable except as noted in HPI & below. Physical Exam . * General: Alert and oriented, no acute distress * Constitutional: well-developed, well-nourished. * Respiratory: Normal respiratory effort, no distress * Gastrointestinal: No tenderness to palpation, no rigidity or guarding. * Skin: No rash or lesion. * Neurologic: Grossly normal * Musculoskeletal: No deformity or overlying skin changes to the lumbar region. Mild midline bony tenderness of the lumbar spine at the region of L2-3. Otherwise no tenderness gluteal region, bilateral lower extremities. Lumbar flexion/extension and rotation ROM with minimal pain. AROM b/l hip flexion, knee flexion/extension, ankle flexion/extension intact. Sensation intact plantar/dorsal foot. Brisk capillary refill. Results & Data Results & Data Laboratory Results . Diagnostic Findings . Abdomen/Pelvis CT 08/27/25 16:01 Technique: Axial computed tomography images were obtained of the abdomen and pelvis after the administration of intravenous contrast. Comparison is made to the prior CT dated 07/31/2025. Findings: The liver is overall of normal size, attenuation, and contour with no sign of cirrhosis or significant fatty infiltration. No liver mass lesion is seen. The portal vein is patent. The gallbladder has been removed. No bile duct dilatation is noted. The spleen is of normal size. No focal splenic lesion is evident. The pancreas appears normal with no sign of acute or chronic pancreatitis and no mass lesion noted. The pancreatic duct is of normal caliber. The adrenal glands appear unremarkable. There are small bilateral renal calculi, measuring 2-3 mm. There is no hydronephrosis or perinephric stranding. No renal mass lesion is identified. There is a 1.7 cm left renal cyst There is a mild infrarenal abdominal aortic aneurysm, measuring up to 3.2 cm. No abdominal adenopathy is seen. The stomach appears normal. There is no sign of small bowel obstruction. The colon appears unremarkable. There is no definite sign of appendicitis. No free intraperitoneal fluid or air is identified. No distal ureteral or bladder calculi are seen. No bladder mass lesion is evident. The iliac arteries are of normal caliber. No pelvic adenopathy is noted. The prostate is at the upper limit of normal in size There is mild subsegmental atelectasis in both lung bases. Lumbar degenerative disc disease is seen. There is an unchanged T12 compression fracture. No focal osseous lesion is seen Impression: 1. Unchanged mild abdominal aortic aneurysm 2. Bilateral renal calculi and left renal cyst Electronically signed by Tan Seymour 08-27-2025 7:[address] 08/27/25 16:01 CT lumbar spine with contrast Technique: Postcontrast Axial images of the lumbar spine. Coronal and sagittal reformatted images made available for review Comparison made to prior exam dated 05/03/2021 Findings: Vertebral bodies are normal in height and aligned without fracture or dislocation. Subtle inflammatory changes in front of the L2-L3 interspace new since prior exam discogenic disc disease seen at L2-L3 L1-L2 and L3-L4. Severe facet arthropathy L2-L3 L3-L4 and L4-L5. Moderate bilateral facet arthropathy at L5-S1. Diffuse canal stenosis at L2-L3, L3-L4, and L4-L5. Impression Subtle inflammatory changes in the soft tissues anterior to the L2-L3 interspace. Findings may represent very early discitis. Correlate clinically with sedimentation rate and C-reactive protein. If clinically warranted, MRI with contrast may be obtained. Electronically signed by Jonathan Rosenbaum 08-27-2025 8:04 PM Lumbar Spine MRI 08/27/25 22:46 EXAM: MR lumbar spine wo/w con CLINICAL HISTORY: intractable back pain, r/o discitis TECHNIQUE: Multisequential and multiplanar images of the lumbar spine were obtained for review without and with contrast. COMPARISON: CT, 05/03/2021 14:10:32 STRATEGY ANALYST FINDINGS: There is no abnormal bone marrow signal to suggest fracture. The pars interarticularis are intact. The conus medullaris terminates at approximately L1 and demonstrates normal size and signal. Multiple level disc desiccation, facet arthrosis, and anterior marginal osteophytes are seen. Prevertebral soft tissue edema with mild fluid collection is seen at the L2 and L3 vertebral level, with left paraspinal muscle edema at the L3/L4 level. Abnormal signal intensity with enhancement seen extending along left paraspinal space to left epidural space. Mild enhancement of end plate also seen along L3-L4 disc. L1/L2 level: Posterior diffuse disc bulge causing effacement of the anterior thecal sac and bilateral mild neural foraminal narrowing. L2/L3 level: Posterior diffuse disc bulge causing effacement of the anterior thecal sac and bilateral mild neural foraminal narrowing. L3/L4 level: Posterior diffuse disc bulge causing effacement of the anterior thecal sac, significant spinal canal stenosis, compression over traversing nerve roots, and bilateral ligamentum flavum hypertrophy leading to bilateral moderate neural foraminal narrowing with indentation over bilateral exiting nerve roots. L4/L5 level: Asymmetric, left more than right disc bulge causing effacement of the anterior thecal sac, indentation over left traversing nerve roots, and bilateral ligamentum flavum hypertrophy leading to moderate neural foraminal narrowing. IMPRESSION: 1. Significant lumbar spondylo-degenerative changes with lumbar disc herniations as described above?stable. 2. Prevertebral soft tissue edema with mild fluid collection is seen at the L2 and L3 vertebral level, with left paraspinal muscle edema at the L3/L4 level. Abnormal signal intensity with enhancement seen extending along left paraspinal space to left epidural space. Mild enhancement of end plate also seen along L3-L4 disc?likely infective/inflammatory etiology. 3. No bone marrow edema in other vertebral bodies. Electronically signed by Deep Arias 08-28-2025 02:07 AM PG Care Time/CCT Total # of Minutes Spent Total Time Spent with Patient: Total time spent is greater than 50% in coordination of care (as documented) at patient's floor/unit and/or counseling patient: [place] [address] IN/OBS CONSULT LVL 3,45M Patient Type New Medical Decision Making Low Complexity Diagnoses Lumbar discitis M46.46
--- NOTE | 2025-08-28 11:13 | Hospitalist Progress Note ---
Date of Service August 28, 2025 Assessment & Plan (1) Intractable back pain: (2) Diabetes mellitus, type 2: Plan 84-year-old male T2DM with prior ulcers and nephropathy, HTN, HLD, A-flutter on Eliquis, psoriatic arthritis, BPH, elevated PSA, urinary incontinence, venous insufficiency, chronic anemia, TAYLOR, postlaminectomy syndrome, and cervical dystonia presenting for low back pain that has worsened starting the day [employer]. His evaluation reveals mild leukocytosis of 13, mild anemia with H&H 12.5/39.5. ESR 67, still pending CRP results. Procalcitonin is normal. CTAP is without acute findings. His L-spine CT does reveal subtle inflammatory changes of the soft tissues in the anterior L2-L3 interspace. Admission for intractable back pain, pending MRI to rule out discitis. #Intractable back pain/? 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 Did have a fall approximately 2 weeks ago and was seen by chiropractor, worsening back pain that had initially improved. W/o worse numbness/tingling (h/o neuropathy), saddle anesthesia, or incontinence of bowel or bladder (does have urinary incontinence at baseline). No infectious symptoms. Admission for intractable back pain, cannot manage at home, with concerns for early discitis, pending workup to r/o. - CBC WBC 13, ESR 67, CRP 8.76; procal 0.16; Uric acid pending - CBC am - CTAP unchanged mild AAA, bilateral renal calculi and L renal cyst - L spine CT subtle inflammatory changes in soft tissues anterior to L2-L3 interspace (? early discitis) - Fall precautions - Heating pad prn - Acetaminophen prn fever/pain, morphine moderate/severe pain -- adjust as necessary - received Dexamethasone 10mg IV x 1 - MRI lumbar degenerative changes with lumbar disc herniations, prevertebral soft tissue edema with fluid collection L2-L3, L paraspinal muscle edema L3/L4, abnormal signal intensity with enhancement end plate L3-L4, ? infective/inflamma tory, no bone marrow edema - Vancomycin + cefepime for coverage - ortho spine consult with rec for TLSO and back restrictions with no bending, lifting, twisting through lumbar spine - correspondence with IR, likely phlegmon/edema, cont with IV antibiotic coverage - thoracic spine imaging - PT/OT consulted - BC PCR with gram + cocci, d/c Vanco and Cefipime, transition to monotherapy with Ancef - ID consult - Cspine MRI secondary to hx of epidural abscess in 2019 with C3-C6 instrumented fixation at C3, C4, C5, C6 - TTE #T2DM, DMT2, at home regimen includes metformin - Glucose on admission 190; Most recent A1C 05/2025 @ 5.1% - Hold metformin - SSI with target BSG range 110-140mg/dL, CF 30, carb ratio 10 - BSG ACHS - Adjust regimen as needed #A-flutter -Amiodarone, Eliquis, metoprolol #HTN -Amlodipine, furosemide, losartan - continue #BPH/Urinary incontinence -Alfuzosin, finasteride, vibegron - continue #Depression -Duloxetine #HLD -Simvastatin #Anemia -H/H 12.5/39.5 -ferrous sulfate, folic acid #GERD -Pantoprazole Dispo: Admit, med/sx VTE prophylaxis: On Eliquis - continue Admission and Anticipated Discharge Date Admission Date: August 27, 2025 Supervising Physician Co-Signing Physician Notes Attending Attestation - Chart reviewed, care plan d/w CRYSTAL Martin. I agree w/ the galindo components of her documentation. Concern for L2-L3 discitis in the setting of bacteremia. ID consult requested. Ortho-spine consult requested. Can IR perform biopsy of the affected area of lumbar region? Tyson Archibald MD Subjective Patient sitting up in bed with heating pad in place. States the pain in his lower back has improved. Does endorse positive complaints of thoracic back pain. Reports having pain off and on in upper back since he fell two weeks ago. Lives with and uses walker to ambulate. There was water on the floor two weeks ago when he feel as he lost his footing landing directly onto back. He denies fever, urinary incontinence, bowel incontinence, chills or urinary symptoms. Review of Systems Review of Systems: All systems reviewed & are unremarkable except as noted in Subjective Physical Exam Physical Exam: GENERAL APPEARANCE: A&O. Sitting comfortably on stretcher. NAD. SKIN: Normal color without rashes or lesions. Normal turgor. HEENT: Head AT/NC. Buccal mucosa is moist and pink. NECK: No jugular venous distention. No thyroid enlargement. There is no lymphadenopathy. HEART: RRR without m/g/r LUNGS: Normal inspiratory effort. CTA without w/r/r ABDOMEN: No guarding or rigidity. Normoactive BS in all four quadrants. Abdomen soft and NT. MSK: No bony gross/deformities throughout. ROM intact. 4/5 MS to bilateral lower ext. +dorsiflexion/plantar flexion of bilateral feet. Sensation intact to BL lower ext./feet. TTP thoracic spine area T10-T12. EXTREMITIES: No edema, No peripheral cyanosis. Neuro: CN 2-12 grossly intact. No focal neuro deficits PSYCHIATRIC: Normal affect. Eye contact is good. Speech is normal rate and content. Responses are appropriate. Results & Data Results & Data Vital Signs (Past 12 Hours) Vital Signs Temp Pulse Pulse Resp BP BP Pulse Ox 08/28/25 07:19 37.0 C 71 16 149/72 H 94 08/28/25 03:01 08/28/25 00:50 37.0 C 97 H 18 149/70 H 95 08/27/25 23:42 70 16 145/76 H 95 O2 Del Method O2 Flow Rate 08/28/25 07:19 Room Air 08/28/25 03:01 Nasal Cannula 1 08/28/25 00:50 Nasal Cannula 1 08/27/25 23:42 Room Air PG Care Time/CCT Total # of Minutes Spent Total Time Spent with Patient: Total time spent is greater than 50% in coordination of care (as documented) at patient's floor/unit and/or counseling patient: Coding Level of Care Code 71058 SUB INP/OBS CARE 3/50MIN Diagnoses Intractable back pain M54.9 Diabetes mellitus, type 2 E11.9
[2025-08-28 11:52] LABS: Appearance Urine Clear (Clear); Bacteria Urine Automated None Seen (None Seen); Cast Urine Automated 0-2 /lpf (0-2); Epithelial Cell Urine Auto 0-2 /hpf (0-2); Glucose Urine UA Negative (Negative); RBC Urine Automated 0-2 /hpf (0-2)
[2025-08-28 12:01] LABS: Hematocrit (blood only) 35.7 % (42.0-52.0); Hemoglobin 11.8 g/dl (14.0-18.0); Immature Granulocytes # (auto) 0.12 K/uL (0.01-0.20); Immature Granulocytes % (auto) 0.7 %; Mean Corpuscular Hemoglobin 27.3 pg (25.0-34.0); Mean Corpuscular Volume 82.6 fL (80.0-100.0); Platelet Count 177 K/uL (130-400); RDW Standard Deviation 45.6 fL (36.4-46.3); Red Blood Count 4.32 M/uL (4.70-6.10); White Blood Count 16.92 K/ul (4.8-10.8)
[2025-08-28 12:52] LABS: A calco-baum cmplx NotReported Not Detected (NotDetected); Bact fragilis Not Reported Not Detected (NotDetected); Blood Culture Id Panel See PCR Comment (NotDetected); C auris Not Reported Not Detected (NotDetected); Calbicans Not Reported Not Detected (NotDetected); Candida glabrata Not Reported Not Detected (NotDetected); Candida krusei Not Reported Not Detected (NotDetected); Cneoformans/gatti Not Reported Not Detected (NotDetected); Cparapsilosis Not Reported Not Detected (NotDetected); Ctropicalis Not Reported Not Detected (NotDetected); E cloacae compx Not Reported Not Detected (NotDetected); Efaecalis Not Reported Not Detected (NotDetected); Efaecium Not Reported Not Detected (NotDetected); Enterobacterales Not Reported Not Detected (NotDetected); Escherichia coli Not Reported Not Detected (NotDetected); H influenzae Not Reported Not Detected (NotDetected); K aerogenes Not Reported Not Detected (NotDetected); Koxytoca Not Reported Not Detected (NotDetected); Kpneumoniae grp Not Reported Not Detected (NotDetected); Lmonocyt Not Reported Not Detected (NotDetected); N meningitidis Not Reported Not Detected (NotDetected); P aeruginosa Not Reported Not Detected (NotDetected); Proteus spp Not Reported Not Detected (NotDetected); Salmonella spp Not Reported Not Detected (NotDetected); Staph lugdunensis Not Reported Not Detected (NotDetected); Staph spp. Not Reported DETECTED (NotDetected); Staphaureus Not Reported DETECTED (NotDetected); Staphepi Not Reported Not Detected (NotDetected); Staphylococcus spp. DETECTED (NotDetected); Stenmaltophilia Not Reported Not Detected (NotDetected); Strep agal(GrpB) Not Reported Not Detected (NotDetected); Strep pneum Not Reported Not Detected (NotDetected); Strep pyog (GrpA) Not Reported Not Detected (NotDetected); Strep spp Not Reported Not Detected (NotDetected); mecAC+MREJ Resistant Gene MRSA Not Detected (NotDetected)
--- NOTE | 2025-08-28 13:47 | XRay Report ---
XR thoracic spine 3V routine CLINICAL HISTORY: Pain to T10-T12 post fall COMPARISON STUDY: 07/07/2020. FINDINGS: There is stable mild anterior wedging at a few mid and lower thoracic vertebral bodies. No new fracture or subluxation seen. Stable moderate diffuse degenerative changes. IMPRESSION: No acute fracture seen at the thoracic spine. ACT 112: Negative or not required by law. Electronically signed by: Johan Bowden M.D. 08/28/2025 1:45 PM
--- NOTE | 2025-08-28 16:35 | Infectious Disease Consult ---
Date of Consultation August 28, 2025 Assessment & Plan (1) Lumbar discitis: (2) MSSA bacteremia: Plan ID Problem List: # MSSA bacteremia # L3-L4 discitis/osteomyelitis, L2-L3 prevertebral phlegmon/abscess, L3-L4 epidural phlegmon # Reported antibiotic allergies: amox/clav (lip swelling), sulfa (lip swelling), clarithromycin (GI upset) Impression: Constantino Quiroz is an 84-year-old man with history of HTN, HLD, Aflutter on Eliquis, psoriatic arthritis, history of postlaminectomy syndrome, history of cervical dystonia, BPH, T2DM c/b prior diabetic foot wounds and nephropathy, who presents to [facility] on 08/27/25 for low back pain, found to have prevertebral edema and abscess at L2-L3, paraspinal muscle edema and enhancement along L paraspinal space to L epidural space, and suspected L3-L4 discitis/osteomyelitis, and BCx + GPCs, BCID c/w MSSA. ID is consulted for lumbar spinal infection and MSSA bacteremia. 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 He has a history of psoriatic arthritis and postlaminectomy syndrome, and has been following with pain management. Every 3 months the pt receives injections (?steroids) in his C- spine. He did have a fall ~2 weeks prior and was seen by a chiropractor. 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 Without saddle anesthesia, no bowel incontinence (does have some urinary incontinence at baseline). No fevers or chills. On arrival, T37. WBC 13, Hgb 12.5. ESR 67 CRP 8.76. Procal normal. CT A/P without acute findings. L-spine CT does reveal subtle inflammatory changes of the soft tissues in the anterior L2-L3 interspace. 08/28 L-spine MRI showing prevertebral soft tissue edema with mild fluid collection at L2-L3, paraspinal muscle edema at L3-L4, abnormal signal with enhancement along L paraspinal space to L epidural space, mild enhancement of endplate seen along L3-L4 c/f infection. He was started on vancomycin and cefepime. Ortho spine was consulted, recommended TLSO and back restrictions. IR felt that pt with phlegmon/edema. At this time, recommending empiric abx treatment. 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 BCx from 08/27 growing GPCs in clusters in 2/2 sets (3/4 bottles), BCID + Staph aureus and neg for MRSA (c/w MSSA) He does have a small wound on his R great toe (wound care photo from 08/28 reviewed). I discussed with primary team on 08/28. Pt has a history of C-spine epidural abscess in 2020 s/p C3-C6 fixation (unclear if he still has cervical hardware in place, will need to confirm). Discussion Pt presenting with back pain, found to have L3-L4 discitis/osteomyelitis, L2-L3 prevertebral phlegmon/abscess, L3-L4 epidural phlegmon. BCx from 08/27 + MSSA in 3/4 bottles, which is likely the causative pathogen. Original source of MSSA is unclear; pt does have a small wound on his R great toe. Ortho spine following, not recommending surgery at this time unless neurological deficits. Will recommend to continue cefazolin for MSSA bacteremia and spinal infection. Recommend TTE with low threshold for ANA if remains bacteremic, and repeat BCx q48h until clear. Would continue to monitor closely for any new/worsening focal complaints (e.g., joint pain, back pain) with low threshold to image/evaluate as possible metastatic infection. If no surgery is pursued, then anticipate at least an 8-week course of IV abx, and would favor repeat L-spine MRI prior to EOT given small fluid collection and phlegmonous changes. Recommend C-spine MRI given chronic cervical neck pain. Notably, pt has a history of C-spine epidural abscess in 2020 s/p C3-C6 fixation (unclear if he still has cervical hardware in place, will need to confirm). Recommendations: - Continue cefazolin 2g IV q8h - Anticipate at least an 8-week course of IV abx for MSSA bacteremia and spinal infection, and repeat L-spine MRI prior to EOT - Repeat BCx ordered for 08/28 to establish clearance. Recommend to repeat BCx q48h until clear - Recommend TTE - Recommend C-spine MRI given chronic cervical neck pain - Ortho spine following, not recommending surgery at this time unless neurological deficits - Continue to monitor closely for any new/worsening focal complaints (e.g., joint pain, back pain) with low threshold to image/evaluate as possible metastatic infection ID will continue to follow. Echo Tam MD, [facility] Infectious Diseases [facility] Connect direct line: [phone] Consultation Information This patient recommendation is based on a telemedicine consult request which was completed asynchronously through chart review and information provided by the primary physician. The patient was not seen or examined today. The evaluation is consultative in nature and all patient care and treatment decisions can either be accepted or rejected by the patient's primary hospital-based treating physician using their own independent medical judgment for their patient. [employer] Executive contact information: Please call [facility] Call Center [phone]. (Phone Number For Physician Use Only) Time Spent Reviewing Chart: 31+ minutes History of Present Illness Attending Physician: Tyson Archibald MD History of Present Illness Constantino Quiroz is an 84-year-old man with history of HTN, HLD, Aflutter on Eliquis, psoriatic arthritis, history of postlaminectomy syndrome, history of cervical dystonia, history of C-spine epidural abscess in 2019 s/p C3-C6 fixation (unclear if he still has cervical hardware in place, will need to confirm), history of R shoulder replacement 03/2023, BPH, T2DM c/b prior diabetic foot wounds and nephropathy, who presents to [facility] on 08/27/25 for low back pain, found to have prevertebral edema and abscess at L2-L3, paraspinal muscle edema and enhancement along L paraspinal space to L epidural space, and suspected L3- L4 discitis/osteomyelitis, and BCx + GPCs, BCID c/w MSSA. ID is consulted for lumbar spinal infection and MSSA bacteremia. 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 He has a history of psoriatic arthritis and postlaminectomy syndrome, and has been following with pain management. Every 3 months the pt receives injections (?steroids) in his C- spine. He did have a fall ~2 weeks prior and was seen by a chiropractor. 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 Without saddle anesthesia, no bowel incontinence (does have some urinary incontinence at baseline). No fevers or chills. On arrival, T37. WBC 13, Hgb 12.5. ESR 67 CRP 8.76. Procal normal. CT A/P without acute findings. L-spine CT does reveal subtle inflammatory changes of the soft tissues in the anterior L2-L3 interspace. 08/28 L-spine MRI showing prevertebral soft tissue edema with mild fluid collection at L2-L3, paraspinal muscle edema at L3-L4, abnormal signal with enhancement along L paraspinal space to L epidural space, mild enhancement of endplate seen along L3-L4 c/f infection. He was started on vancomycin and cefepime. Ortho spine was consulted, recommended TLSO and back restrictions. IR felt that pt with phlegmon/edema. At this time, recommending empiric abx treatment. 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 BCx from 08/27 growing GPCs in clusters in 2/2 sets (3/4 bottles), BCID + Staph aureus and neg for MRSA (c/w MSSA) He does have a small wound on his R great toe (wound care photo from 08/28 reviewed). I discussed with primary team on 08/28. 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 Allergies Allergy/AdvReac Type Severity Reaction Status Date / Time amoxicillin Allergy Intermediate lip Verified 08/27/25 20:40 swelling clavulanic acid Allergy Intermediate lip Verified 08/27/25 20:40 swelling Sulfa (Sulfonamide Allergy Intermediate lip Verified 08/27/25 20:40 Antibiotics) swelling VINCE Inhibitors Allergy Unknown unknown Verified 08/27/25 20:40 clarithromycin AdvReac Intermediate GI upset Verified 08/27/25 20:40 Home Medications Medication Instructions Recorded Confirmed Type aspirin 81 mg tablet,delayed 81 mg PO HS 06/29/18 08/27/25 History release (Adult Low Dose Aspirin) vfmmbdumkqfe-tjupmujn-chuska tablet 1 tab PO QPM 09/05/20 08/27/25 History docusate sodium 100 mg capsule 100 mg PO QPM 01/21/23 08/27/25 History (Stool Softener) acetaminophen 500 mg tablet 500 mg PO Q6H PRN Pain 09/21/23 08/27/25 History amlodipine 10 mg tablet 10 mg PO DAILY 09/21/23 08/27/25 History folic acid 1 mg tablet 1 mg PO DAILY 03/07/24 08/27/25 History duloxetine 60 mg capsule,delayed 60 mg PO DAILY 07/31/24 08/27/25 History release baclofen 10 mg tablet 10 mg PO BID #60 tabs 09/12/24 08/27/25 Rx duloxetine 30 mg capsule,delayed 30 mg PO DAILY 02/19/25 08/27/25 History release finasteride 5 mg tablet 5 mg PO DAILY #90 tabs 02/21/25 08/27/25 Rx alfuzosin 10 mg tablet,extended 10 mg PO DAILY #90 tabs 02/27/25 08/27/25 Rx release 24 hr (Uroxatral) losartan 100 mg tablet 100 mg PO QPM #90 tabs 03/06/25 08/27/25 Rx metformin 1,000 mg tablet 1,000 mg PO BID #180 tabs 03/27/25 08/27/25 Rx magnesium oxide 400 mg (241.3 mg 400 mg PO QAM #30 tabs 04/29/25 08/27/25 Rx magnesium) tablet metoprolol succinate 25 mg 25 mg PO DAILY #30 tabs 05/23/25 08/27/25 Rx tablet,extended release 24 hr vibegron 75 mg tablet (Gemtesa) 75 mg PO DAILY #90 tabs 05/25/25 08/27/25 Rx ferrous sulfate 325 mg (65 mg 325 mg PO BID 05/31/25 08/27/25 History iron) tablet pantoprazole 40 mg tablet,delayed 40 mg PO DAILY #90 tabs 06/21/25 08/27/25 Rx release potassium chloride 20 mEq 20 meq PO QAM #90 tabs 07/03/25 08/27/25 Rx tablet,extended release amiodarone 200 mg tablet 200 mg PO DAILY #90 tabs 07/24/25 08/27/25 Rx apixaban 5 mg tablet (Eliquis) 5 mg PO BID #180 tabs 07/31/25 08/27/25 Rx simvastatin 20 mg tablet 20 mg PO QAM #90 tabs 08/02/25 08/27/25 Rx furosemide 20 mg tablet (Lasix) 20 mg PO DAILY #30 tabs 08/03/25 08/27/25 Rx Patient History Medical History Paroxysmal atrial flutter Anemia Loss of protective sensation of skin of deformed foot Dizziness Anemia Chronic pain Tachycardia COVID-19 Hyperbilirubinemia Venous stasis ulcers Trigger finger of right hand 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 S/P arthroscopy of shoulder (01/2016) Left S/P left knee arthroscopy (10/2015) H/O elbow surgery R/L S/P hammer toe correction (11/2013) arthrodesis R toe Status post carpal tunnel release of both wrists H/O bilateral cataract extraction History of tonsillectomy S/P laparoscopic cholecystectomy (07/2018) Hx of difficult intubation - History of difficult intubation in 2007 at [facility]. Per record review they were unable to intubate on 3 attempts. Fast track LMA were unsuccessful. Were able to mask vent with 2 people. Intubated with nasal fiberoptic. - Anesthesia records from 2018 lap adelita showed Grade 1 view with Glidescope #4, smooth intubation - Right shoulder arthroscopy, RCR (12/11/21): LMA#5 placed without difficulty + PNB at [facility]. Family History Mother Cardiac disorder Myocardial infarction Aunt Family history of diabetes mellitus Uncle Family history of diabetes mellitus Other No family history of adverse response to anesthesia Denies family history of Ovarian cancer Prostate cancer Breast cancer Colorectal cancer Social History Smoking Status: Former smoker Tobacco Type: Cigarettes Age Started Using Tobacco: 14; Age Quit Using Tobacco: 44; packs per day: 2; Second Hand Exposure: No; Do You Dip or Chew Tobacco: No; Hx Alcohol Use: No Hx Substance Use: No Preferred Language: Hungarian Communication Ability: Effective Visual Impairment: Limited Hearing Ability: Hard of Hearing Emergency Room Registered Nurse Required: No Beliefs That Will Affect Care: None marital status: Current Living Situation: Spouse Current Living Situation Comment: lives with current occupational status: retired How many Children do You have: 4 How many Children do You have Comment: one son are local and able to assist with care as needed. Other children live further away. Feels Safe at Home: Yes Safety Concerns: Feels Safe At This Time Diet: diabetic caffeine: Yes during the past year weight has: remained stable Dental Care, Regularly: Yes Physical Activity Frequency: Daily Physical Activity Frequency Comment: very active around house Seatbelt Use: always Sunscreen Use: Yes Assistive Devices: Cane, Denture - Upper, Denture - Lower and Walker Results & Data Vital Signs (Past 12 Hours) Vital Signs Temp Pulse Resp BP Pulse Ox O2 Del Method 08/28/25 14:35 37.0 C 65 16 122/65 94 Room Air 08/28/25 07:19 37.0 C 71 16 149/72 H 94 Room Air Laboratory Results Diagnostics: 08/28 L-spine MRI 1. Significant lumbar spondylo-degenerative changes with lumbar disc herniations as described above?stable. 2. Prevertebral soft tissue edema with mild fluid collection is seen at the L2 and L3 vertebral level, with left paraspinal muscle edema at the L3/L4 level. Abnormal signal intensity with enhancement seen extending along left paraspinal space to left epidural space. Mild enhancement of end plate also seen along L3-L4 disc?likely infective/inflammatory etiology. 3. No bone marrow edema in other vertebral bodies. 08/27 CT A/P 1. Unchanged mild abdominal aortic aneurysm 2. Bilateral renal calculi and left renal cyst Micro Data: 08/28 BCx x2: PEND 08/27 BCx x2: GPCs in clusters in 2/2 sets (3/4 bottles), BCID + Staph aureus and neg for MRSA (c/w MSSA) Antibiotic Summary: cefazolin (08/28 present) vancomycin (08/27) cefepime (08/27)
[2025-08-28] MEDS: GADOBUTROL 30ML VIAL IV ONE (21:44)
[2025-08-28] MEDS: DOCUSATE SODIUM 100 MG CAP PO SCH (22:49)
[2025-08-28] MEDS: LOSARTAN POTASSIUM 50 MG TAB PO SCH (22:50)
[2025-08-28] MEDS: ASPIRIN 81 MG ECTAB PO SCH (22:50)
--- NOTE | 2025-08-28 23:53 | Magnetic Resonance Report ---
Exam(s): MRI C SPINE IV Amt: 8mL Gadavist given existing IV EXAM: MR Cervical Spine With Intravenous Contrast CLINICAL HISTORY: Reason for exam: Discitis L3-L4, hx of fixation at C3-C6. OTHER: Other Notes: 8CC GADAVIST INJ. AT 2140 HRS. EXISTING IV BY SADIE PT. FELL 2 WKS. AGO HX SKIN CANCER PREV. CERVICAL SPINE SURG TECHNIQUE: Magnetic resonance images of the cervical spine with intravenous contrast in multiple planes. Moderate motion and metal artifact from orthopedic hardware cervical spine. CONTRAST: Patient received 8mL Gadavist given existing IV of IV contrast COMPARISON: CT cervical spine 12/02/2023. FINDINGS: Vertebrae: Posterior fusion hardware C3-C6, stable. No gross hardware failure, marrow edema, compression deformity, discitis or osteomyelitis. No mass or abnormal enhancement. Spinal cord: No abnormal signal or enhancement. Soft tissues: No epidural fluid collection, mass or enhancement. No prevertebral edema or interspinous ligamentous edema. DISCS/SPINAL CANAL/NEURAL FORAMINA: C2-C3: Mild disc/osteophyte, and severe facet hypertrophy. C3-C4 through C5-C6: Posterior fusion hardware. C6-C7: Severe disc space narrowing, moderate disc/osteophyte and facet hypertrophy. C7-T1: Unremarkable for this age group. OTHER: No isolated disc herniation or central spinal stenosis. IMPRESSION: 1. Status post C3-C6 fusion with adjacent segment disease. 2. No abnormal enhancement, disc herniation, spinal stenosis, epidural hematoma/abscess, abnormal cord signal, compression deformity or discitis/osteomyelitis. 3. Moderate artifact from motion and orthopedic hardware in the cervical spine. Electronically signed by: Mariela Lewis M.D. 08/28/25 23:52 PM
[2025-08-29] MEDS: MoRPHine SULFATE 4 MG/ML 1 ML CARP\\VIAL IV STA (06:16)
[2025-08-29 07:10] LABS: Hematocrit (blood only) 34.2 % (42.0-52.0); Hemoglobin 11.1 g/dl (14.0-18.0); Immature Granulocytes # (auto) 0.06 K/uL (0.01-0.20); Immature Granulocytes % (auto) 0.4 %; Mean Corpuscular Hemoglobin 26.4 pg (25.0-34.0); Mean Corpuscular Volume 81.4 fL (80.0-100.0); Platelet Count 182 K/uL (130-400); RDW Standard Deviation 45.6 fL (36.4-46.3); Red Blood Count 4.20 M/uL (4.70-6.10); White Blood Count 15.13 K/ul (4.8-10.8)
[2025-08-29 07:30] LABS: Creatinine Clr Calc Pharmacy 60.7 ml/min
--- NOTE | 2025-08-29 10:16 | XCELERA ---
[id number]
--- NOTE | 2025-08-29 12:28 | Infectious Disease Progress Nt ---
Date of Service August 29, 2025 Assessment & Plan (1) Lumbar discitis: (2) MSSA bacteremia: Plan ID Problem List: # MSSA bacteremia # MSSA L3-L4 discitis/osteomyelitis, L2-L3 prevertebral phlegmon/abscess, L3-L4 epidural phlegmon # Reported antibiotic allergies: amox/clav (lip swelling) tolerates cefazolin/cefepime, sulfa (lip swelling), clarithromycin (GI upset) Impression: Constantino Quiroz is an 84-year-old man with history of HTN, HLD, Aflutter on Eliquis, psoriatic arthritis, history of postlaminectomy syndrome, history of cervical dystonia, BPH, T2DM c/b prior diabetic foot wounds and nephropathy, who presents to [facility] on 08/27/25 for low back pain, found to have prevertebral edema and abscess at L2-L3, paraspinal muscle edema and enhancement along L paraspinal space to L epidural space, and suspected L3-L4 discitis/osteomyelitis, and BCx + GPCs, BCID c/w MSSA. ID is consulted for lumbar spinal infection and MSSA bacteremia. 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 He has a history of psoriatic arthritis and postlaminectomy syndrome, and has been following with pain management. Every 3 months the pt receives injections (?steroids) in his C- spine. He did have a fall ~2 weeks prior and was seen by a chiropractor. 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 Without saddle anesthesia, no bowel incontinence (does have some urinary incontinence at baseline). No fevers or chills. On arrival, T37. WBC 13, Hgb 12.5. ESR 67 CRP 8.76. Procal normal. CT A/P without acute findings. L-spine CT does reveal subtle inflammatory changes of the soft tissues in the anterior L2-L3 interspace. 08/28 L-spine MRI showing prevertebral soft tissue edema with mild fluid collection at L2-L3, paraspinal muscle edema at L3-L4, abnormal signal with enhancement along L paraspinal space to L epidural space, mild enhancement of endplate seen along L3-L4 c/f infection. He was started on vancomycin and cefepime. Ortho spine was consulted, recommended TLSO and back restrictions. IR felt that pt with phlegmon/edema. At this time, recommending empiric abx treatment. 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 BCx from 08/27 growing GPCs in clusters in 2/2 sets (3/4 bottles), BCID + Staph aureus and neg for MRSA (c/w MSSA) He does have a small wound on his R great toe (wound care photo from 08/28 reviewed). I discussed with primary team on 08/28. 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 Discussion Pt presenting with back pain, found to have L3-L4 discitis/osteomyelitis, L2-L3 prevertebral phlegmon/abscess, L3-L4 epidural phlegmon. BCx from 08/27 + MSSA in 3/4 bottles, which is very likely the causative pathogen of the spinal infection as well. Original source of MSSA is unclear; pt does have a small wound on his R great toe. Ortho spine following, not recommending surgery at this time unless neurological deficits. 08/29 TTE with no evidence of mass or vegetation; LVEF normal, LA moderately dilated, AV sclerosis without stenosis, elevated RVSP, IVC mildly dilated. Low threshold for ANA if remains bacteremic, and repeat BCx q48h until clear. Would continue to monitor closely for any new/worsening focal complaints (e.g., joint pain, back pain) with low threshold to image/evaluate as possible metastatic infection. Notably, pt has a history of C-spine epidural abscess in 2020 s/p C3- C6 fixation. Given chronic neck pain, 08/28 C-spine MRI obtained, artifact from hardware and motion but no e/o abscess, discitis/osteomyelitis, or abnormal enhancement to suggest infection. Would continue cefazolin for MSSA bacteremia and spinal infection. If no surgery is pursued, then anticipate at least an 8-week course of IV abx, and would favor repeat L-spine MRI prior to EOT, to follow improvement/resolution of small fluid collection and phlegmonous changes. Recommendations: - Continue cefazolin 2g IV q8h - Pending BCx clearance, anticipate at least an 8-week course of IV abx for MSSA bacteremia and spinal infection, and repeat L-spine MRI prior to EOT - Repeat BCx ordered for 08/28 to establish clearance. Recommend to repeat BCx q48h until clear - Ortho spine following, not recommending surgery at this time unless neurological deficits - Continue to monitor closely for any new/worsening focal complaints (e.g., joint pain, back pain) with low threshold to image/evaluate as possible metastatic infection ID will continue to follow. Echo Tam MD, MHS Infectious Diseases [facility]/ID Connect ID Connect direct line: [phone] Admission and Anticipated Discharge Date Admission Date: August 27, 2025 Subjective Subsequent visit was provided via telemedicine using two-way real-time interactive telecommunication between the patient and the telemedicine provider. For the duration of the visit, the provider was performing the assessment from a different facility than the patient. This includesuse of bluetooth stethoscope forauscultationperformed by the telepresenter that the telemedicine provider can hear if described in the physical exam. Compensation And Benefits Analyst contact information: Please call ID Connect Call Center . (Phone Number For Physician Use Only) After establishing a telemedicine visit, patient was: Patient was verified with two unique identifiers, Patient/authorized rep acknowledged consent and understanding and Gave permission to continue telehealth session Time Spent with Patient: Subsequent => 35 min - Afebrile, WBC 15.13 - Pt reports that starting Saturday 08/25, he began noticing pain in his neck, lower back, and between his shoulder blades. No fevers, chills, or night sweats. Reports cervical neck hardware, R shoulder replacement, and a pin in his R great toe, and hardware in his lower jaw. - Currently, the patient continues to have pain in his neck and lower back. He says he does not feel significantly differently since admission. Physical Exam Physical Exam: Exam obtained with assistance of an in-person telepresenter General: Well-appearing, no acute distress HEENT: Conjunctivae non-injected, sclerae anicteric, MMM, OP clear. Resp: Respirations nonlabored. Back: Wearing brace. Reports chronic neck pain. Difficult to fully access lumbar spine given brace, but having tenderness throughout the lumbar spine on exam. Ext: No joint warmth or effusions noted. Skin: No rashes or lesions. Neuro: Alert & interactive. Grossly non-focal. Psych: Pleasant, appropriate. Results & Data Vital Signs (Past 12 Hours) Vital Signs Temp Pulse Resp BP BP Pulse Ox O2 Del Method 08/29/25 08:11 36.4 C L 68 18 166/77 H 95 Room Air 08/29/25 05:35 36.7 C 69 14 163/82 H 94 Room Air Laboratory Results Diagnostics: 08/29 TTE No evidence of mass or vegetation; LVEF normal, LA moderately dilated, AV sclerosis without stenosis, elevated RVSP, IVC mildly dilated 08/28 C-spine MRI 1. Status post C3-C6 fusion with adjacent segment disease. 2. No abnormal enhancement, disc herniation, spinal stenosis, epidural hematoma/abscess, abnormal cord signal, compression deformity or discitis/osteomyelitis. 3. Moderate artifact from motion and orthopedic hardware in the cervical spine. 08/28 L-spine MRI 1. Significant lumbar spondylo-degenerative changes with lumbar disc herniations as described above?stable. 2. Prevertebral soft tissue edema with mild fluid collection is seen at the L2 and L3 vertebral level, with left paraspinal muscle edema at the L3/L4 level. Abnormal signal intensity with enhancement seen extending along left paraspinal space to left epidural space. Mild enhancement of end plate also seen along L3-L4 disc?likely infective/inflammatory etiology. 3. No bone marrow edema in other vertebral bodies. 08/27 CT A/P 1. Unchanged mild abdominal aortic aneurysm 2. Bilateral renal calculi and left renal cyst Micro Data: 08/28 UCx: E. faecalis 08/28 BCx x2: PEND 08/27 BCx x2: Staph aureus in 2/2 sets (3/4 bottles), BCID + Staph aureus and neg for MRSA (c/w MSSA) Antibiotic Summary: cefazolin (08/28 present) vancomycin (08/27) cefepime (08/27)
--- NOTE | 2025-08-29 18:42 | Hospitalist Progress Note ---
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 His evaluation reveals mild leukocytosis of 13, mild anemia with H&H 12.5/39.5. ESR 67, still pending CRP results. Procalcitonin is normal. CTAP is without acute findings. His L-spine CT does reveal subtle inflammatory changes of the soft tissues in the anterior L2-L3 interspace. Admission for intractable back pain, pending MRI to rule out discitis. ##MSSA bacteremia -08/27 BCx x2: Staph aureus in 2/2 sets (3/4 bottles), BCID + Staph aureus and neg for MRSA (c/w MSSA) -08/28 BCx x2: gram + cocci -08/29 BC X 2: pending -afebrile, WBC 13.00>16.92>15.13 -ID consulted -ID recs with continuance of cefazolin 2g IV q8h -Anticipate at least an 8-week course of IV abx for MSSA bacteremia and spinal infection, and repeat L-spine MRI prior to EOT -Repeat BCx ordered for 08/28 to establish clearance, repeat BC X 2 Q48H until c lear -TTE with no evidence of a mass or vegetation, normal mitral valve anatomy -consider ANA pending BC results -C-spine MRI without epidural hematoma/abscess, abnormal cord signal, discitis/osteo -Ortho spine following, not recommending surgery at this time unless neurological deficits -Continue to monitor closely for any new/worsening focal complaints (e.g., joint pain, back pain) with low threshold to image/evaluate as possible metastatic infection -Right toe x-ray secondary to wound to right great toe and hardware -Hx of previous right shoulder TSA, right shoulder X-ray, consult Dr. Valentine #Intractable back pain/? 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 Did have a fall approximately 2 weeks ago and was seen by chiropractor, worsening back pain that had initially improved. W/o worse numbness/tingling (h/o neuropathy), saddle anesthesia, or incontinence of bowel or bladder (does have urinary incontinence at baseline). No infectious symptoms. Admission for intractable back pain, cannot manage at home, with concerns for early discitis, pending workup to r/o. - CTAP unchanged mild AAA, bilateral renal calculi and L renal cyst - L-spine CT does reveal subtle inflammatory changes of the soft tissues in the anterior L2-L3 interspace. 08/28 L-spine MRI showing prevertebral soft tissue edema with mild fluid collection at L2-L3, paraspinal muscle edema at L3-L4, abnormal signal with enhancement along L paraspinal space to L epidural space, mild enhancement of endplate seen along L3-L4 c/f infection. He was started on vancomycin and cefepime. Ortho spine was consulted, recommended TLSO and back r estrictions. IR felt that pt with phlegmon/edema. At this time, recommending empiric abx treatment. 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 infective/inflammatory, no bone marrow edema - Thoracic spine x-ray for complaints of tenderness to palpation s/p fall two weeks ago with no findings - PT/OT consulted ##UTI -denies urinary symptoms of dysuria, fever, flank pain, foul-smelling urine -UA with 1+ leuks, UC with enterococcus faecalis, awaiting sensitivities #T2DM, DMT2, at home regimen includes metformin - Glucose on admission 190; Most recent A1C 05/2025 @ 5.1% - Hold metformin - SSI with target BSG range 110-140mg/dL, CF 30, carb ratio 10 - BSG ACHS - Adjust regimen as needed #A-flutter -Amiodarone, Eliquis, metoprolol #HTN -Amlodipine, furosemide, losartan #BPH/Urinary incontinence -Alfuzosin, finasteride, vibegron #Depression -Duloxetine #HLD -Simvastatin #Anemia -H/H 11.2/34.2 -ferrous sulfate, folic acid #GERD -Pantoprazole Dispo: Admit, med/sx VTE prophylaxis: On Eliquis - continue Admission and Anticipated Discharge Date Admission Date: August 27, 2025 Supervising Physician Co-Signing Physician Notes I did not see or examine the patient. I verified all galindo points and agree with CRYSTAL Jennings with the following exceptions and/or additions: MSSA bacteremia - discussed thoracic spine XR not adequate to assess for discitis however reportedly no longer having pain in thoracic spine therefore no further imaging will be performed. Reportedly has shoulder arthroplasty and some pain here therefore recommend XR and ortho consult. Repeated MSSA bacteremia therefore likely will need lifelong immunosuppression PO antibiotics following cefazolin. Will consider ANA if blood cultures from today continue to be positive or if any peripheral stigmata of IE present. Subjective Patient reports he has some neck discomfort that has been chronic prior to admission. Reports his mid back pain is no longer present. Denies loss of bladder/bowel function since he has been here. States he had right shoulder surgery done by Dr. Valentine in the past and also has dental implants. States his appetite has been good and he has been hydrating appropriately. Has a condom catheter present draining clear, yellow urine. Review of Systems Review of Systems: All systems reviewed & are unremarkable except as noted in Subjective Physical Exam Physical Exam: GENERAL APPEARANCE: A&O. Sitting comfortably in bed. NAD. SKIN: Normal color without rashes or lesions. Normal turgor. HEENT: Head AT/NC. Buccal mucosa is moist and pink. NECK: No jugular venous distention. No thyroid enlargement. There is no lymphadenopathy. HEART: RRR without m/g/r LUNGS: Normal inspiratory effort. CTA without w/r/r ABDOMEN: No guarding or rigidity. Normoactive BS in all four quadrants. Abdomen soft and NT. MSK: No bony gross/deformities throughout. ROM intact. 4/5 MS to bilateral lower ext. +dorsiflexion/plantar flexion of bilateral feet. Sensation intact to BL lower ext./feet. TTP thoracic spine area T10-T12. EXTREMITIES: No edema, No peripheral cyanosis. Neuro: CN 2-12 grossly intact. No focal neuro deficits PSYCHIATRIC: Normal affect. Eye contact is good. Speech is normal rate and content. Responses are appropriate. Results & Data Results & Data Vital Signs (Past 12 Hours) Vital Signs Temp Pulse Resp BP Pulse Ox O2 Del Method 08/29/25 16:24 37.0 C 67 16 150/75 H 97 Room Air 08/29/25 08:11 36.4 C L 68 18 166/77 H 95 Room Air Laboratory Results Labs reviewed: CBC, BMP, urine culture, blood cultures PG Care Time/CCT Total # of Minutes Spent Total Time Spent with Patient: Total time spent is greater than 50% in coordination of care (as documented) at patient's floor/unit and/or counseling patient: Coding Level of Care Code 15067 SUB INP/OBS CARE 3/50MIN Diagnoses Intractable back pain M54.9 Diabetes mellitus, type 2 E11.9
--- NOTE | 2025-08-29 20:33 | XRay Report ---
Exam: 3 view right shoulder. History: Pain. Comparison: March 15, 2024. Findings: Right shoulder arthroplasty changes are again noted. There is questionable fracture of one of the arthroplasty screws at the level of the glenoid. This is difficult to appreciate with certainty on prior exam. Orthopedic hardware otherwise appears to be well-seated and intact. Productive changes of the acromioclavicular joint not appreciably changed. No appreciated dislocation. No occult osseous fracture. Impression: 1. Question fracture deformity right shoulder arthroplasty screw at the level of the glenoid component. This is difficult to appreciate with certainty on prior exam. 2. Otherwise stable exam. No appreciated acute process. Electronically signed by Foreign Cook 08-29-2025 8:31 PM
--- NOTE | 2025-08-29 20:34 | XRay Report ---
Exam: Three-view right great toe. History: Findings worrisome for infection. Comparison: April 26, 2025 3 view foot exam. Findings: Arthrodesis hardware of the first digit interphalangeal joint again noted. Osseous bridging of the joint is present. Findings are similar to prior study. There is mild diffuse demineralization. No destructive osseous or joint process. Question soft tissue defect along the ventral medial aspect of the distal great toe. Additional likely swelling of the great toe. Impression: Great toe soft tissue swelling with questionable soft tissue defect. No appreciated underlying osteomyelitis. Electronically signed by Foreign Cook 08-29-2025 8:34 PM
[2025-08-29] MEDS: ACETAMINOPHEN 500 MG TAB PO SCH (21:19)
[2025-08-30] MEDS: POLYETHYLENE (MIRALAX) 17 GM PACK PO SCH (04:45)
[2025-08-30 07:25] LABS: Hematocrit (blood only) 35.5 % (42.0-52.0); Hemoglobin 11.3 g/dl (14.0-18.0); Immature Granulocytes # (auto) 0.05 K/uL (0.01-0.20); Immature Granulocytes % (auto) 0.6 %; Mean Corpuscular Hemoglobin 26.3 pg (25.0-34.0); Mean Corpuscular Volume 82.8 fL (80.0-100.0); Platelet Count 188 K/uL (130-400); RDW Standard Deviation 46.6 fL (36.4-46.3); Red Blood Count 4.29 M/uL (4.70-6.10); White Blood Count 9.08 K/ul (4.8-10.8)
[2025-08-30 07:32] LABS: Anion Gap 7.0 (3-11); Calcium 8.7 mg/dl (8.6-10.3); Carbon Dioxide 28.0 mmol/L (21-32); Chloride 100.0 mmol/L (98-107); Potassium 4.1 mmol/L (3.5-5.1); Sodium 135.0 mmol/L (136-145)
[2025-08-30 07:38] LABS: Blood Urea Nitrogen 21.0 mg/dl (6-23); Creatinine Clr Calc Pharmacy 58.7 ml/min; Glucose 136.0 mg/dl (70-99(Fasting))
--- NOTE | 2025-08-30 08:38 | Orthopedic Progress Note ---
Date of Service August 30, 2025 Assessment & Plan (1) Lumbar discitis: (2) MSSA bacteremia: (3) Ambulatory dysfunction: (4) Lumbar radiculopathy, acute: (5) 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: Plan * Appreciate ID recommendations. Continue IV abx * Continue use of TLSO brace when out of bed * Weight bearing status: WBAT bilateral lower extremity. No bending, lifting, twisting through the lumbar spine * Daily treatment: Physical Therapy/ Occupational Therapy per protocol * Pain control * Disposition: TBD * Remainder care per primary team * Will continue to follow, plan to re-eval following PT today. Update 11:55am * Continued L leg pain and difficulty with ambulation * Unable to assess changes in sensation given neuropathy * Discussed with Dr Hensley, given progressing symptoms will plan for I&D/laminectomy tomorrow 08/31 unless he improves overnight * NPO midnight * Please hold all anticoagulation Subjective . Active Problems: Lumbar discitis 84 y/o male with lumbar discitis. Ongoing IV abx therapy. Fitted for TLSO brace yesterday. Reports new onset leg pain with motion yesterday-today. Denies fever/chills, chest pain/SOB, nausea/vomiting. Participated with physical therapy earlier today and had difficulty with ambulating. Now reports that in addition to the low back pain he is having significant left pain into the thigh consistent with L3 or L4 radicular pain. Review of Systems All systems reviewed & are unremarkable except as noted in HPI & below. Physical Exam * Musculoskeletal: No deformity or overlying skin changes to the lumbar region. Mild midline bony tenderness of the lumbar spine at the region of L2-4. Otherwise no tenderness gluteal region, bilateral lower extremities. Lumbar flexion/extension and rotation ROM with minimal pain. AROM b/l hip flexion, knee flexion/extension, ankle flexion/extension intact. Strength 5/5 bilaterally. Pain noted with AROM hip flexion and rotation movements. Sensation intact plantar/dorsal foot. Brisk capillary refill. Results & Data Results & Data Laboratory Results . Diagnostic Findings . PG Care Time/CCT Total # of Minutes Spent Total Time Spent with Patient: Total time spent is greater than 50% in coordination of care (as documented) at patient's floor/unit and/or counseling patient: Supervising Physician Co-Signing Physician Notes The above history and physical was documented by Rodo Grant PA-C acting as my scribe for this note. I saw the patient personally and agree with all of the documentation above. The patient has progressive radicular symptoms in the setting of discitis. I discussed with the patient and his today at bedside that given his advanced age, history of diabetes, poor wound healing he is at an increased risk of failure of IV antibiotics which would be the preference. He is now having difficulty ambulating due to the severity of his left lower extremity with ambulatory dysfunction. Concern for progressive radiculopathy and worsening of the infection. I also discussed the fact that the patient has had continued blood cultures despite appropriate antibiotic therapy which could be seen with the infection under pressure. Given his advancing radiculopathy, new ambulatory deficit, high likelihood of failure of antibiotic therapy, continued positive blood cultures I think the best course of action would be to proceed with a lumbar decompressive laminectomy at L3 to evacuate as much of the phlegmon/abscess as possible. Will work on seeing if we can reverse his Eliquis otherwise we did discuss the possibility of increased hematoma risk however would plan on placing a large drain at the time of surgery tomorrow morning. I do not recommend holding off on surgery any longer than that given the risk of progressive neurologic deficit. We discussed that his history of diabetes with poor wound healing in the lower extremities could put him at an increased risk of poor wound healing in the spine however I believe the risks of evacuation of the infection in the spine outweigh her risks of possible prolonged wound care. Would expect his peripheral neuropathy symptoms to remain following decompression as these are more likely related to his long-term diabetes and any lumbar stenosis. We discussed surgical intervention at length, and the patient was informed that risks include but are not limited to: bleeding, infection, blood clots to extremities or lungs, no relief or incomplete relief of symptoms, dural tear, nerve injury, paralysis, weakness, pain, prolonged recovery, need for physical therapy or rehabilitation services, loss of bowel/bladder control, recurrent stenosis or disc herniation, need for more surgery, and in very rare instances even . We also discussed the fact that this surgery is better for relief of the nerve pain in the lower extremities than back pain. There is also risk of iatrogenic instability, prolonged wound care or wound healing the patient vo iced understanding of the risks and benefits of surgery and elected to proceed. Coding Level of Care Code 65139 SUB INP/OBS CARE MIN (57 - DECISION FOR SURGERY) Diagnoses Lumbar discitis M46.46 MSSA bacteremia R78.81; B95.61 Ambulatory dysfunction R26.2 Lumbar radiculopathy, acute M54.16 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 G06.1
--- NOTE | 2025-08-30 11:49 | Orthopedic Consultation ---
Date of Service August 30, 2025 Assessment & Plan (1) MSSA bacteremia: (2) History of reverse total replacement of right shoulder joint: Plan * Case/imaging reviewed and discussed with Dr Valentine * No clinical evidence of ongoing PJI of the right shoulder. Symptoms are per patient's baseline * Patient also notes chronic left knee pain. History of arthroscopy and known degenerative changes. No effusion appreciated, ROM without limitation or pain. * No further orthopedic workup indicated at this time regarding the right shoulder or left knee * Continue care per primary team History of Present Illness Reason for Consultation: Bacteremia, remote history of right TSA Requesting Physician: . Attending Physician: Tyson Liao MD . Patient is a 84 y/o male with low back pain. PMH including T2DM with prior ulcers and nephropathy, HTN, HLD, A-flutter on Eliquis, psoriatic arthritis, BPH, elevated PSA, urinary incontinence, venous insufficiency, chronic anemia, TAYLOR, postlaminectomy syndrome, and cervical dystonia. History of right rTSA with Dr. Valentine 2022. Ongoing admission for bacteremia, lumbar discitis. Tentative plans for lumbar laminectomy/I&D tomorrow with Dr. Hensley. Orthopedics consulted for input regarding his shoulder implant. At time of exam patient sitting upright in chair, no acute distress. All complaints regarding back, lower extremity pain. Denies any pain or restricted motion beyond his baseline of the right shoulder. States that since his operation he has had persistent stiffness and limited range of motion but this is unchanged in the setting of his ongoing hospitalization. Also notes chronic left knee pain, history of arthroscopy. Allergies Allergy/AdvReac Type Severity Reaction Status Date / Time amoxicillin Allergy Intermediate lip Verified 08/27/25 20:40 swelling clavulanic acid Allergy Intermediate lip Verified 08/27/25 20:40 swelling Sulfa (Sulfonamide Allergy Intermediate lip Verified 08/27/25 20:40 Antibiotics) swelling VINCE Inhibitors Allergy Unknown unknown Verified 08/27/25 20:40 clarithromycin AdvReac Intermediate GI upset Verified 08/27/25 20:40 Home Medications Medication Instructions Recorded Confirmed Type aspirin 81 mg tablet,delayed 81 mg PO HS 06/29/18 08/27/25 History release (Adult Low Dose Aspirin) cyhluwbmpacw-qiotkdqj-owawkl tablet 1 tab PO QPM 09/05/20 08/27/25 History docusate sodium 100 mg capsule 100 mg PO QPM 01/21/23 08/27/25 History (Stool Softener) acetaminophen 500 mg tablet 500 mg PO Q6H PRN Pain 09/21/23 08/27/25 History amlodipine 10 mg tablet 10 mg PO DAILY 09/21/23 08/27/25 History folic acid 1 mg tablet 1 mg PO DAILY 03/07/24 08/27/25 History duloxetine 60 mg capsule,delayed 60 mg PO DAILY 07/31/24 08/27/25 History release baclofen 10 mg tablet 10 mg PO BID #60 tabs 09/12/24 08/27/25 Rx duloxetine 30 mg capsule,delayed 30 mg PO DAILY 02/19/25 08/27/25 History release finasteride 5 mg tablet 5 mg PO DAILY #90 tabs 02/21/25 08/27/25 Rx alfuzosin 10 mg tablet,extended 10 mg PO DAILY #90 tabs 02/27/25 08/27/25 Rx release 24 hr (Uroxatral) metformin 1,000 mg tablet 1,000 mg PO BID #180 tabs 03/27/25 08/27/25 Rx magnesium oxide 400 mg (241.3 mg 400 mg PO QAM #30 tabs 04/29/25 08/27/25 Rx magnesium) tablet metoprolol succinate 25 mg 25 mg PO DAILY #30 tabs 05/23/25 08/27/25 Rx tablet,extended release 24 hr vibegron 75 mg tablet (Gemtesa) 75 mg PO DAILY #90 tabs 05/25/25 08/27/25 Rx ferrous sulfate 325 mg (65 mg 325 mg PO BID 05/31/25 08/27/25 History iron) tablet pantoprazole 40 mg tablet,delayed 40 mg PO DAILY #90 tabs 06/21/25 08/27/25 Rx release potassium chloride 20 mEq 20 meq PO QAM #90 tabs 07/03/25 08/27/25 Rx tablet,extended release amiodarone 200 mg tablet 200 mg PO DAILY #90 tabs 07/24/25 08/27/25 Rx apixaban 5 mg tablet (Eliquis) 5 mg PO BID #180 tabs 07/31/25 08/27/25 Rx simvastatin 20 mg tablet 20 mg PO QAM #90 tabs 08/02/25 08/27/25 Rx furosemide 20 mg tablet (Lasix) 20 mg PO DAILY #30 tabs 08/03/25 08/27/25 Rx losartan 100 mg tablet 100 mg PO QPM #90 tabs 08/30/25 Rx Past Med/Surg History Problem List (Updated 08/28/25 @ 17:04 by Echo Tam MD) History of reverse total replacement of right shoulder joint MSSA bacteremia Lumbar discitis Intractable back pain Blood glucose elevated (Acute) Ambulatory dysfunction (Acute) Back pain (Acute) Psoriatic arthritis Microscopic hematuria Diabetic ulcer of left foot (Acute) Diabetic ulcer of right foot (Acute) Diabetic ulcer of toe of right foot, limited to breakdown of skin (Acute) Urinary incontinence History of DVT (deep vein thrombosis) Hiatal hernia GERD (gastroesophageal reflux disease) Well controlled, stable Atrial flutter Cervical facet joint syndrome Cervical dystonia Post-laminectomy syndrome Posterior cervical laminectomy and fusion C3-6 Thrombocytopenia TAYLOR (obstructive sleep apnea) Could not tolerate BIPAP Diabetic peripheral neuropathy associated with type 2 diabetes mellitus Osteoarthritis History of elevated prostate specific antigen (PSA) Diabetic nephropathy associated with type 2 diabetes mellitus Venous insufficiency (chronic) (peripheral) (Chronic) Dupuytren's contracture of left hand Nocturnal hypoxemia Depression (Chronic) Hypertension controlled, stable per pt Hyperlipidemia Chronic steroid use Psoriatic arthritis Diabetes mellitus, type 2 (Chronic) NIDDM - controlled Psoriatic arthropathy Does use prednisone- possibly weaning off prior to surgery Hepatic steatosis 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 History of compression fracture of spine 2019, had cervical laminectomy 04/2020, no recent issues Chronic anemia Chronic/stable, PCP monitoring 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) Medical History Paroxysmal atrial flutter Anemia Loss of protective sensation of skin of deformed foot Dizziness Anemia Chronic pain Tachycardia COVID-19 Hyperbilirubinemia Venous stasis ulcers Trigger finger of right hand 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 S/P arthroscopy of shoulder (01/2016) Left S/P left knee arthroscopy (10/2015) H/O elbow surgery R/L S/P hammer toe correction (11/2013) arthrodesis R toe Status post carpal tunnel release of both wrists H/O bilateral cataract extraction History of tonsillectomy S/P laparoscopic cholecystectomy (07/2018) Hx of difficult intubation - History of difficult intubation in 2007 at [facility]. Per record review they were unable to intubate on 3 attempts. Fast track LMA were unsuccessful. Were able to mask vent with 2 people. Intubated with nasal fiberoptic. - Anesthesia records from 2018 lap adelita showed Grade 1 view with Glidescope #4, smooth intubation - Right shoulder arthroscopy, RCR (12/11/21): LMA#5 placed without difficulty + PNB at [facility]. Family History Mother Cardiac disorder Myocardial infarction Aunt Family history of diabetes mellitus Uncle Family history of diabetes mellitus Other No family history of adverse response to anesthesia Denies family history of Ovarian cancer Prostate cancer Breast cancer Colorectal cancer Social History Smoking Status: Former smoker Tobacco Type: Cigarettes Age Started Using Tobacco: 14; Age Quit Using Tobacco: 44; packs per day: 2; Second Hand Exposure: No; Do You Dip or Chew Tobacco: No; Hx Alcohol Use: No Hx Substance Use: No Preferred Language: Namibian Communication Ability: Effective Visual Impairment: Limited Hearing Ability: Hard of Hearing Peanut Sheller Required: No Beliefs That Will Affect Care: None marital status: Current Living Situation: Spouse Current Living Situation Comment: lives with current occupational status: retired How many Children do You have: 4 How many Children do You have Comment: one son are local and able to assist with care as needed. Other children live further away. Feels Safe at Home: Yes Diet: diabetic caffeine: Yes during the past year weight has: remained stable Dental Care, Regularly: Yes Physical Activity Frequency: Daily Physical Activity Frequency Comment: very active around house Seatbelt Use: always Sunscreen Use: Yes Assistive Devices: Cane and Walker Review of Systems All systems reviewed & are unremarkable except as noted in HPI & below. Physical Exam . * General: Alert and oriented, no acute distress * Constitutional: well-developed, well-nourished. * Respiratory: Normal respiratory effort, no distress * Gastrointestinal: No tenderness to palpation, no rigidity or guarding. * Skin: No rash or lesion. * Neurologic: Grossly normal * Musculoskeletal: - Right shoulder with well-healed surgical incision, CDI. No overlying erythema, effusion, skin breakdown, or evidence of infection. No TTP anterior shoulder, lateral shoulder, posterior shoulder, or upper arm. AROM shoulder flexion and abduction to approximately 90 degrees, per patient this is his baseline motion. Assisted range of motion beyond that is stiff. No pain with ROM below shoulder level. AROM elbow flexion extension, wrist flexion/extension, finger movements intact. Sensation intact radial/median/ulnar nerve distributions. - Left knee with no obvious deformity or overlying skin changes. Well-healed surgical incisions. No overlying erythema, no appreciable effusion. No tenderness of the medial/lateral joint line, distal thigh, patellofemoral joint, or lower leg. AROM knee flexion/extension with endrange stiffness but no pain throughout arc of motion. AROM foot/ankle intact. Limited sensation of the lower leg secondary to baseline neuropathy. Results & Data Results & Data Laboratory Results . Diagnostic Findings . Shoulder X-Ray 08/29/25 18:15 Exam: 3 view right shoulder. History: Pain. Comparison: March 15, 2024. Findings: Right shoulder arthroplasty changes are again noted. There is questionable fracture of one of the arthroplasty screws at the level of the glenoid. This is difficult to appreciate with certainty on prior exam. Orthopedic hardware otherwise appears to be well-seated and intact. Productive changes of the acromioclavicular joint not appreciably changed. No appreciated dislocation. No occult osseous fracture. Impression: 1. Question fracture deformity right shoulder arthroplasty screw at the level of the glenoid component. This is difficult to appreciate with certainty on prior exam. 2. Otherwise stable exam. No appreciated acute process. Electronically signed by Foreign Cook 08-29-2025 8:31 PM PG Care Time/CCT Total # of Minutes Spent Total Time Spent with Patient: Total time spent is greater than 50% in coordination of care (as documented) at patient's floor/unit and/or counseling patient: [place] [address] IN/OBS CONSULT LVL 2,35M Patient Type Established Medical Decision Making Straight Forward Diagnoses MSSA bacteremia R78.81; B95.61 History of reverse total replacement of right shoulder joint Z96.611
--- NOTE | 2025-08-30 13:40 | Infectious Disease Progress Nt ---
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 # Reported antibiotic allergies: amox/clav (lip swelling) tolerates cefazolin/cefepime, sulfa (lip swelling), clarithromycin (GI upset) Impression: Constantino Quiroz is an 84-year-old man with history of HTN, HLD, Aflutter on Eliquis, psoriatic arthritis, history of postlaminectomy syndrome, history of cervical dystonia, history of C-spine epidural abscess in 2020 s/p C3-C6 fixation, history of R shoulder replacement, BPH, T2DM c/b prior diabetic foot wounds and nephropathy, who presents to [facility] on 08/27/25 for low back pain, found to have prevertebral edema and abscess at L2-L3, paraspinal muscle edema and enhancement along L paraspinal space to L epidural space, and suspected L3- L4 discitis/osteomyelitis, and BCx + GPCs, BCID c/w MSSA. ID is consulted for lumbar spinal infection and MSSA bacteremia. Pt presenting with low back pain that began 1 day [employer]. He has a history of psoriatic arthritis and postlaminectomy syndrome, and has been following with pain management. Every 3 months the pt receives injections (?steroids) in his C- spine. He did have a fall ~2 weeks prior and was seen by a chiropractor. He had worsened back pain that has since partially improved until it again worsened 1 day [employer]. Without saddle anesthesia, no bowel incontinence (does have some urinary incontinence at baseline). No fevers or chills. On arrival, T37. WBC 13, Hgb 12.5. ESR 67 CRP 8.76. Procal normal. CT A/P without acute findings. L-spine CT does reveal subtle inflammatory changes of the soft tissues in the anterior L2-L3 interspace. 08/28 L-spine MRI showing prevertebral soft tissue edema with mild fluid collection at L2-L3, paraspinal muscle edema at L3-L4, abnormal signal with enhancement along L paraspinal space to L epidural space, mild enhancement of endplate seen along L3-L4 c/f infection. He was started on vancomycin and cefepime. Ortho spine was consulted, recommended TLSO and back restrictions. IR felt that pt with phlegmon/edema. At this time, recommending empiric abx treatment. 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 BCx from 08/27 growing GPCs in clusters in 2/2 sets (3/4 bottles), BCID + Staph aureus and neg for MRSA (c/w MSSA) He does have a small wound on his R great toe (wound care photo from 08/28 reviewed). I discussed with primary team on 08/28. 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 Discussion Pt presenting with back pain, found to have L3-L4 discitis/osteomyelitis, L2-L3 prevertebral phlegmon/abscess, L3-L4 epidural phlegmon. BCx from 08/27 + MSSA in 3/4 bottles, which is very likely the causative pathogen of the spinal infection as well. Original source of MSSA is unclear; pt does have a small wound on his R great toe. Ortho spine following, given worsening symptoms, tentative plan for I&D/laminectomy on 08/31. 08/29 TTE with no evidence of mass or vegetation; LVEF normal, LA moderately dilated, AV sclerosis without stenosis, elevated RVSP, IVC mildly dilated. Would consider ANA as 08/28 BCx remain positive in 2/2 sets. Would repeat BCx q48h until clear. Would continue to monitor closely for any new/worsening focal complaints (e.g., joint pain, back pain) with low threshold to image/evaluate as possible metastatic infection. Notably, pt has a history of C-spine epidural abscess in 2020 s/p C3-C6 fixation. Given chronic neck pain, 08/28 C-spine MRI obtained, artifact from hardware and motion but no e/o abscess, discitis/osteomyelitis, or abnormal enhancement to suggest infection. Pt with R shoulder pain and history of R shoulder replacement; evaluated by ortho without c/f PJI at this time. Would continue cefazolin for MSSA bacteremia and spinal infection. Pending surgical source control, then anticipate at least a 6 to 8-week course of IV abx, and would favor repeat L-spine MRI prior to EOT, to follow improvement/resolution of small fluid collection and phlegmonous changes. If hardware is placed, then will require additional long-term suppressive abx. Recommendations: - Continue cefazolin 2g IV q8h for MSSA bacteremia and spinal infection - Pending BCx clearance and surgical source control, anticipate at least a 6 to 8-week course of IV abx for MSSA bacteremia and spinal infection. If hardware is placed, then will require additional long-term suppressive abx - F/u BCx from 08/29 to establish clearance. Recommend to repeat BCx q48h until clear. Would consider ANA given ongoing bacteremia - Ortho spine following, given worsening symptoms, tentative plan for I&D/laminectomy on 08/31. Would send intraoperative cultures. - Continue to monitor closely for any new/worsening focal complaints (e.g., joint pain, back pain) with low threshold to image/evaluate as possible metastatic infection ID will continue to follow. Echo Tam MD, MHS Infectious Diseases [facility]/ID Connect ID Connect direct line: [phone] Admission and Anticipated Discharge Date Admission Date: August 27, 2025 Subjective This patient recommendation is based on a telemedicine consult request which was completed asynchronously through chart review and information provided by the primary physician. The patient was not seen or examined today. The evaluation is consultative in nature and all patient care and treatment decisions can either be accepted or rejected by the patient's primary hospital-based treating physician using their own independent medical judgment for their patient. Time Spent Reviewing Chart: 31+ minutes - Afebrile, WBC 9.08 - BCx from 08/29 pending - Given progressive symptoms, current ortho spine plan is tentatively for I&D/laminectomy on 08/[address] Hensley - Pt with R shoulder pain, evaluated by ortho and not felt to have evidence of PJI of the R shoulder at this time Results & Data Vital Signs (Past 12 Hours) Vital Signs Temp Pulse Resp BP Pulse Ox O2 Del Method 08/30/25 09:18 73 157/72 H 93 Room Air 08/30/25 07:30 Room Air 08/30/25 07:15 36.8 C 71 16 117/62 94 Room Air Laboratory Results Diagnostics: 08/29 TTE No evidence of mass or vegetation; LVEF normal, LA moderately dilated, AV sclerosis without stenosis, elevated RVSP, IVC mildly dilated 08/28 C-spine MRI 1. Status post C3-C6 fusion with adjacent segment disease. 2. No abnormal enhancement, disc herniation, spinal stenosis, epidural hematoma/abscess, abnormal cord signal, compression deformity or discitis/osteomyelitis. 3. Moderate artifact from motion and orthopedic hardware in the cervical spine. 08/28 L-spine MRI 1. Significant lumbar spondylo-degenerative changes with lumbar disc herniations as described above?stable. 2. Prevertebral soft tissue edema with mild fluid collection is seen at the L2 and L3 vertebral level, with left paraspinal muscle edema at the L3/L4 level. Abnormal signal intensity with enhancement seen extending along left paraspinal space to left epidural space. Mild enhancement of end plate also seen along L3-L4 disc?likely infective/inflammatory etiology. 3. No bone marrow edema in other vertebral bodies. 08/27 CT A/P 1. Unchanged mild abdominal aortic aneurysm 2. Bilateral renal calculi and left renal cyst Micro Data: 08/29 BCx x2: PEND 08/28 BCx x2: Staph aureus in 2/2 sets (2/4 bottles) 08/28 UCx: E. faecalis 08/27 BCx x2: Staph aureus in 2/2 sets (3/4 bottles), BCID + Staph aureus and neg for MRSA (c/w MSSA) Antibiotic Summary: cefazolin (08/28 present) vancomycin (08/27) cefepime (08/27)
--- NOTE | 2025-08-30 14:49 | Anesthesiology Consultation ---
Date of Service August 30, 2025 Assessment & Plan (1) Encounter for pre-operative examination: Chart Review Chart Review: Acceptable Risk for Surgery History Surgery Operation Date: 08/31/25 07:30 Proposed Procedures p L3 Lumbar Laminectomy - Vitaly Hensley MD Height/Weight Height: 5 ft 6 in Weight: 78.4 kg Allergies Allergy/AdvReac Type Severity Reaction Status Date / Time amoxicillin Allergy Intermediate lip Verified 08/27/25 20:40 swelling clavulanic acid Allergy Intermediate lip Verified 08/27/25 20:40 swelling Sulfa (Sulfonamide Allergy Intermediate lip Verified 08/27/25 20:40 Antibiotics) swelling VINCE Inhibitors Allergy Unknown unknown Verified 08/27/25 20:40 clarithromycin AdvReac Intermediate GI upset Verified 08/27/25 20:40 Medications Home Medications Medication Instructions Recorded Confirmed Last Taken aspirin 81 mg tablet,delayed 81 mg PO HS 06/29/18 08/27/25 08/26/25 release (Adult Low Dose Aspirin) wyojgimtzqjn-popbgljr-bndgnh tablet 1 tab PO QPM 09/05/20 08/27/25 08/26/25 docusate sodium 100 mg capsule 100 mg PO QPM 01/21/23 08/27/25 08/26/25 (Stool Softener) acetaminophen 500 mg tablet 500 mg PO Q6H PRN Pain 09/21/23 08/27/25 08/27/25 08:00 amlodipine 10 mg tablet 10 mg PO DAILY 09/21/23 08/27/25 08/27/25 08:00 folic acid 1 mg tablet 1 mg PO DAILY 03/07/24 08/27/25 08/27/25 08:00 duloxetine 60 mg capsule,delayed 60 mg PO DAILY 07/31/24 08/27/25 08/27/25 08:00 release baclofen 10 mg tablet 10 mg PO BID #60 tabs 09/12/24 08/27/25 08/27/25 08:00 duloxetine 30 mg capsule,delayed 30 mg PO DAILY 02/19/25 08/27/25 08/27/25 08:00 release finasteride 5 mg tablet 5 mg PO DAILY #90 tabs 02/21/25 08/27/25 08/27/25 08:00 alfuzosin 10 mg tablet,extended 10 mg PO DAILY #90 tabs 02/27/25 08/27/25 08/27/25 08:00 release 24 hr (Uroxatral) metformin 1,000 mg tablet 1,000 mg PO BID #180 tabs 03/27/25 08/27/25 08/27/25 08:00 magnesium oxide 400 mg (241.3 mg 400 mg PO QAM #30 tabs 04/29/25 08/27/25 08/26/25 magnesium) tablet metoprolol succinate 25 mg 25 mg PO DAILY #30 tabs 05/23/25 08/27/25 08/27/25 08:00 tablet,extended release 24 hr vibegron 75 mg tablet (Gemtesa) 75 mg PO DAILY #90 tabs 05/25/25 08/27/25 08/27/25 08:00 ferrous sulfate 325 mg (65 mg 325 mg PO BID 05/31/25 08/27/25 08/27/25 08:00 iron) tablet pantoprazole 40 mg tablet,delayed 40 mg PO DAILY #90 tabs 06/21/25 08/27/25 08/27/25 08:00 release potassium chloride 20 mEq 20 meq PO QAM #90 tabs 07/03/25 08/27/25 08/27/25 08:00 tablet,extended release amiodarone 200 mg tablet 200 mg PO DAILY #90 tabs 07/24/25 08/27/25 08/27/25 08:00 apixaban 5 mg tablet (Eliquis) 5 mg PO BID #180 tabs 07/31/25 08/27/25 08/27/25 08:00 simvastatin 20 mg tablet 20 mg PO QAM #90 tabs 08/02/25 08/27/25 08/27/25 08:00 furosemide 20 mg tablet (Lasix) 20 mg PO DAILY #30 tabs 08/03/25 08/27/25 08/27/25 08:00 losartan 100 mg tablet 100 mg PO QPM #90 tabs 08/30/25 Unknown Active Medications Generic Name Dose Route Start Last Admin Trade Name Freq PRN Reason Stop Dose Admin Acetaminophen 1,000 mg 08/29/25 21:00 08/30/25 14:26 Acetaminophen 500 Mg Tab PO 09/28/25 20:59 1,000 mg TID LICHA Administration Amiodarone HCl 200 mg 08/28/25 09:00 08/30/25 09:12 Amiodarone 200 Mg Tab PO 09/27/25 08:59 200 mg DAILY LICHA Administration Amlodipine Besylate 10 mg 08/28/25 09:00 08/30/25 09:12 Amlodipine Besylate 5 Mg Tab PO 09/27/25 08:59 10 mg DAILY LICHA Administration Apixaban 5 mg 08/28/25 09:00 08/30/25 09:12 Apixaban 5 Mg Tablet PO 09/27/25 08:59 5 mg BID LICHA Administration Aspirin 81 mg 08/28/25 21:00 08/29/25 21:31 Aspirin 81 Mg Ectab PO 09/27/25 20:59 81 mg HS LICHA Administration Baclofen 10 mg 08/28/25 09:00 08/30/25 09:10 Baclofen 10 Mg Tab PO 09/27/25 08:59 10 mg BID LICHA Administration Docusate Sodium 100 mg 08/28/25 21:00 08/29/25 21:31 Docusate Sodium 100 Mg Cap PO 09/27/25 20:59 100 mg QPM LICHA Administration Duloxetine HCl 30 mg 08/28/25 09:00 08/30/25 09:11 Duloxetine Hcl 30 Mg Cap PO 09/27/25 08:59 30 mg DAILY LICHA Administration Duloxetine HCl 60 mg 08/28/25 09:00 08/30/25 09:11 Duloxetine Hcl 60 Mg Cap PO 09/27/25 08:59 60 mg DAILY LICHA Administration Ferrous Sulfate 325 mg 08/28/25 09:00 08/30/25 09:12 Ferrous Sulfate 325 Mg Tab PO 09/27/25 08:59 325 mg BID LICHA Administration Finasteride 5 mg 08/28/25 09:00 08/30/25 09:11 Finasteride 5 Mg Tab PO 09/27/25 08:59 5 mg DAILY LICHA Administration Folic Acid 1 mg 08/28/25 09:00 08/30/25 09:11 Folic Acid 1 Mg Tab PO 09/27/25 08:59 1 mg DAILY LICHA Administration Furosemide 20 mg 08/28/25 09:00 08/30/25 09:11 Furosemide 20 Mg Tab PO 09/27/25 08:59 20 mg DAILY LICHA Administration Cefazolin Sodium 2,000 mg in 15 mls @ 3.75 mls/min 08/28/25 16:00 08/30/25 07:40 Ancef 2000mg IV 09/11/25 15:59 3.75 mls/min Q8H LICHA Administration Insulin Aspart 0 units 08/28/25 07:30 08/30/25 12:10 Insulin Aspart Per Unit Charge SC 09/27/25 07:29 10 units ACHS LICHA Administration Losartan Potassium 100 mg 08/28/25 21:00 08/29/25 21:31 Losartan Potassium 50 Mg Tab PO 09/27/25 20:59 100 mg QPM LICHA Administration Magnesium Oxide 400 mg 08/28/25 09:00 08/30/25 09:12 Magnesium Oxide 400 Mg Tab PO 09/27/25 08:59 400 mg QAM LICHA Administration Metoprolol Succinate 25 mg 08/28/25 09:00 08/30/25 09:11 Metoprolol Succ 25mg Ext Rel Tab PO 09/27/25 08:59 25 mg DAILY LICHA Administration Morphine Sulfate 1 - 2 mg 08/27/25 22:47 08/30/25 04:03 Morphine Sulfate 4 Mg/Ml 1 Ml Carp\Vial IV 09/10/25 22:46 2 mg Q3H PRN Administration Pain Oxycodone HCl 5 mg 08/29/25 15:22 08/29/25 16:20 Oxycodone Hcl Ir 5 Mg Tab (Immediate Release) PO 09/12/25 15:21 5 mg Q4H PRN Administration MODERATE Pain (4,5,6) & Pre PT Oxycodone HCl 10 mg 08/29/25 15:22 08/30/25 07:39 Oxycodone Hcl Ir 5 Mg Tab (Immediate Release) PO 09/12/25 15:21 10 mg Q4H PRN Administration SEVERE Pain (7,8,9,10) Pantoprazole Sodium 40 mg 08/28/25 09:00 08/30/25 09:11 Pantoprazole 40 Mg Tab PO 09/27/25 08:59 40 mg DAILY LICHA Administration Polyethylene Glycol 17 gm 08/30/25 04:30 08/30/25 07:40 Polyethylene (Miralax) 17 Gm Pack PO 09/29/25 04:29 17 gm DAILY LICHA Administration Potassium Chloride 20 meq 08/28/25 09:00 08/30/25 09:36 Potassium Chloride Crtab 20 Meq Tabcr PO 09/27/25 08:59 20 meq QAM LICHA Administration Simvastatin 20 mg 08/28/25 09:00 08/30/25 09:13 Simvastatin 20 Mg Tab PO 09/27/25 08:59 20 mg QAM LICHA Administration Tamsulosin HCl 0.4 mg 08/28/25 09:00 08/30/25 09:13 Tamsulosin Hcl 0.4 Mg Cap PO 09/27/25 08:59 0.4 mg DAILY LICHA Administration Vibegron 75 mg 08/28/25 09:00 08/30/25 09:11 Vibegron 75 Mg Tab PO 09/27/25 08:59 75 mg DAILY LICHA Administration Past Medical History Medical History Paroxysmal atrial flutter Anemia Loss of protective sensation of skin of deformed foot Dizziness Anemia Chronic pain Tachycardia COVID-19 Hyperbilirubinemia Venous stasis ulcers Trigger finger of right hand 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 Scapular fracture Tendon rupture, Achilles Hx of diabetic foot ulcer resolved (2021) Past Family History Family History Mother Cardiac disorder Myocardial infarction Aunt Family history of diabetes mellitus Uncle Family history of diabetes mellitus Other No family history of adverse response to anesthesia Denies family history of Ovarian cancer Prostate cancer Breast cancer Colorectal cancer Past Surgical History Surgical History Status post reverse total replacement of right shoulder (~03/2023) S/P foot surgery, left (09/2023) excision w/ amputation of L 5th toe and partial amputation L 4th toe Hx of oral surgery dental implants History of colonoscopy Status post rotator cuff repair S/P arthroscopy of right shoulder 12/2021 S/P rotator cuff repair Left S/P laminectomy (04/25/20) Cervical 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 S/P arthroscopy of shoulder (01/2016) Left S/P left knee arthroscopy (10/2015) H/O elbow surgery R/L S/P hammer toe correction (11/2013) arthrodesis R toe Status post carpal tunnel release of both wrists H/O bilateral cataract extraction History of tonsillectomy S/P laparoscopic cholecystectomy (07/2018) Hx of difficult intubation - History of difficult intubation in 2007 at [facility]. Per record review they were unable to intubate on 3 attempts. Fast track LMA were unsuccessful. Were able to mask vent with 2 people. Intubated with nasal fiberoptic. - Anesthesia records from 2018 lap adelita showed Grade 1 view with Glidescope #4, smooth intubation - Right shoulder arthroscopy, RCR (12/11/21): LMA#5 placed without difficulty + PNB at [facility]. Social History Smoking Status: Former smoker tobacco type: cigarettes Do You Dip or Chew Tobacco: No Hx Alcohol Use: No Hx Substance Use: No substance use type: does not use Physical Exam Vital Signs Last Vital Signs Temp 36.8 C 08/30/25 07:15 Pulse 73 08/30/25 09:18 Resp 16 08/30/25 07:15 BP 157/72 H 08/30/25 09:18 Pulse Ox 93 08/30/25 09:18 O2 Del Method Room Air 08/30/25 09:18 O2 Flow Rate 1 08/28/25 03:01 Testing Laboratory Results 08/30/25 06:29 08/30/25 06:29 Urine Color Yellow 08/28/25 11:34 Urine Appearance Clear (Clear) 08/28/25 11:34 Urine pH 5.5 (4.5-7.5) 08/28/25 11:34 Ur Specific [place] 1.024 (1.000-1.030) 08/28/25 11:34 Urine Protein 1+ (Negative) H 08/28/25 11:34 Urine Glucose (UA) Negative (Negative) 08/28/25 11:34 Urine Ketones 1+ (Negative) H 08/28/25 11:34 Urine Nitrite Negative (Negative) 08/28/25 11:34 Ur Leukocyte Esterase 1+ (Negative) H 08/28/25 11:34 Urine WBC (Auto) 11-20 /hpf (0-5) H 08/28/25 11:34 Urine RBC (Auto) 0-2 /hpf (0-2) 08/28/25 11:34 U Hyaline Cast (Auto) 0-2 /lpf (0-2) 08/28/25 11:34 U Epithel Cells (Auto) 0-2 /hpf (0-2) 08/28/25 11:34 Urine Bacteria (Auto) None Seen (None Seen) 08/28/25 11:34 08/28/25 15:00 Aerobic Blood Culture - Preliminary Blood Staphylococcus aureus Anaerobic Blood Culture - Final 08/28/25 14:49 Aerobic Blood Culture - Preliminary Blood Staphylococcus aureus Anaerobic Blood Culture - Preliminary No growth in Anaerobic bottle after 24 hours. 08/27/25 21:00 Aerobic Blood Culture - Final Blood Staphylococcus aureus Anaerobic Blood Culture - Final Staphylococcus aureus 08/28/25 11:34 Urine Culture - Preliminary Urine,Clean Catch Enterococcus faecalis 08/27/25 21:28 Aerobic Blood Culture - Preliminary Blood Staphylococcus aureus Anaerobic Blood Culture - Final 08/30/25 08/30/25 11:24 07:17 POC Glucose 210 H 156 H Electrocardiogram Date: 05/23/25 Findings: + NSST changes and + SB @ (54) Echocardiogram Date: 08/29/25 EF: 65-70% LV Function: normal Valvular Disease: + no significant valvular disease RV systolic pressure 50-60mmHg
--- NOTE | 2025-08-30 17:48 | Hospitalist Progress Note ---
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 His evaluation reveals mild leukocytosis of 13, mild anemia with H&H 12.5/39.5. ESR 67, still pending CRP results. Procalcitonin is normal. CTAP is without acute findings. His L-spine CT does reveal subtle inflammatory changes of the soft tissues in the anterior L2-L3 interspace. Admission for intractable back pain, pending MRI to rule out discitis. ##MSSA bacteremia -08/27 BCx x2: Staph aureus in 2/2 sets (3/4 bottles), BCID + Staph aureus and neg for MRSA (c/w MSSA) -08/28 BCx x2: gram + cocci -08/29 BC X 2: prelim with no growth -afebrile, WBC 13.00>16.92>15.13>9.08 -ID consulted -ID recs with continuance of cefazolin 2g IV q8h -Anticipate at least an 8-week course of IV abx for MSSA bacteremia and spinal infection, and repeat L-spine MRI prior to EOT -repeat BC X 2 Q48H until clear -TTE with no evidence of a mass or vegetation, normal mitral valve anatomy -ANA per ID recs -C-spine MRI without epidural hematoma/abscess, abnormal cord signal, discitis/osteo -Ortho spine following, new rec for surgical intervention with lami and drain on 08/31 as patient weaker with worsening pain in left leg and difficulty ambulating, hold AC/NPO after MN, did have Apixiban dose this am, reached out to AC clinic for possible KCentra dosing prior to surgery and as patient is not emergently bleeding and not candidate at this time -Right toe x-ray secondary to wound to right great toe with no underlying osteo -Hx of previous right shoulder TSA, right shoulder X-ray, consulted Dr. Valentine #Intractable back pain/? 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 Did have a fall approximately 2 weeks ago and was seen by chiropractor, worsening back pain that had initially improved. W/o worse numbness/tingling (h/o neuropathy), saddle anesthesia, or incontinence of bowel or bladder (does have urinary incontinence at baseline). No infectious symptoms. Admission for intractable back pain, cannot manage at home, with concerns for early discitis, pending workup to r/o. - CTAP unchanged mild AAA, bilateral renal calculi and L renal cyst - L-spine CT does reveal subtle inflammatory changes of the soft tissues in the anterior L2-L3 interspace. 08/28 L-spine MRI showing prevertebral soft tissue edema with mild fluid collection at L2-L3, paraspinal muscle edema at L3-L4, abnormal signal with enhancement along L paraspinal space to L epidural space, mild enhancement of endplate seen along L3-L4 c/f infection. He was started on vancomycin and cefepime. Ortho spine was consulted, recommended TLSO and back restrictions. IR felt that pt with phlegmon/edema. At this time, recommending empiric abx treatment. 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 infective/inflammatory, no bone marrow edema - Thoracic spine x-ray for complaints of tenderness to palpation s/p fall two weeks ago with no findings - PT/OT consulted ##UTI -denies urinary symptoms of dysuria, fever, flank pain, foul-smelling urine -UA with 1+ leuks, UC with enterococcus faecalis, awaiting sensitivities #T2DM, DMT2, at home regimen includes metformin - Glucose on admission 190; Most recent A1C 05/2025 @ 5.1% - Hold metformin - SSI with target BSG range 110-140mg/dL, CF 30, carb ratio 10 - BSG ACHS - Adjust regimen as needed #A-flutter -Amiodarone, HOLD Eliquis, metoprolol #HTN -Amlodipine, furosemide, losartan #BPH/Urinary incontinence -Alfuzosin, finasteride, vibegron #Depression -Duloxetine #HLD -Simvastatin #Anemia -H/H 11.3/35.5 -ferrous sulfate, folic acid #GERD -Pantoprazole Dispo: Admit, med/sx, plan for rehab upon discharge VTE prophylaxis: On Eliquis, probable SCDs post op updated regarding plan at bedside Admission and Anticipated Discharge Date Admission Date: August 27, 2025 Supervising Physician Co-Signing Physician Notes I did not see of examine the patient. I verified all galindo points and agree with CRYSTAL Jennings with the following exceptions and/or additions: None Subjective Patient reports his lower back pain has been slightly worse today. States his left leg feels weaker and he is having more difficulty walking as he attempted to work with physical therapy. Denies fever, chills, and loss of bowel/bladder function. Dr. Kennedy at the bedside with patient and present. Discussed surgical intervention for tomorrow am. Review of Systems Review of Systems: All systems reviewed & are unremarkable except as noted in Subjective Physical Exam Physical Exam: GENERAL APPEARANCE : A&O. Sitting up in chair eating. N AD. SKIN: Normal c olor without rashe s or lesions. Nor mal turgor. HEENT: Head AT/NC. Bucca l mucosa is moist and pink. NECK: No jugular venous di stention. No thyro id enlargement. Th ere is no lymphade nopathy. HEART: RR R without m/g/r SHEEBA NGS: Normal inspir atory effort. CTA without w/r/r. ABD OMEN: No guarding or rigidity. Normo active BS in all f our quadrants. Abd omen soft and NT. MSK: No bony gross /deformities throu ghout. ROM intact. 4/5 MS to right l ower ext, 3/5 MS t o left lower ext, +dorsiflexion/rosa maria ntar flexion of bi lateral feet. Sens ation intact to BL lower ext./feet. EXTREMITIES: No e rhea, No periphera l cyanosis. Neuro: CN 2-12 grossly i ntact. No focal ne uro deficits PSYCH IATRIC: Normal aff ect. Eye contact i s good. Speech is normal rate and co ntent. Responses a re appropriate. Results & Data Results & Data Vital Signs (Past 12 Hours) Vital Signs Temp Pulse Resp BP Pulse Ox O2 Del Method 08/30/25 17:25 36.4 C L 08/30/25 15:27 36.5 C 59 L 18 115/65 93 Room Air 08/30/25 09:18 73 157/72 H 93 Room Air 08/30/25 07:30 Room Air 08/30/25 07:15 36.8 C 71 16 117/62 94 Room Air Laboratory Results Labs reviewed: CBC, BMP, Blood cultures PG Care Time/CCT Total # of Minutes Spent Total Time Spent with Patient: Total time spent is greater than 50% in coordination of care (as documented) at patient's floor/unit and/or counseling patient: Coding Level of Care Code 19077 SUB INP/OBS CARE 3/50MIN Diagnoses Intractable back pain M54.9 Diabetes mellitus, type 2 E11.9
[2025-08-31] MEDS ORDERED: PROPOFOL IV EMULSION 10 MG/ML 20 ML VIAL IV ONE (06:55)
[2025-08-31] MEDS ORDERED: LIDOCAINE 2% 2 ML VIAL/AMP(20MG/ML) INFIL ONE (06:55)
[2025-08-31] MEDS ORDERED: ROCURONIUM BROMIDE 10 MG/ML 5 ML VIAL IV ONE (06:55)
[2025-08-31] MEDS ORDERED: ONDANSETRON INJ 2 MG/ML 2 ML VIAL ONE (06:55)
[2025-08-31] MEDS ORDERED: MIDAZOLAM HCL 1 MG/ML 2ML VIAL ONE (06:55)
[2025-08-31] MEDS ORDERED: DEXAMETHASONE SOD INJ 4 MG/ML VIAL ONE (06:55)
[2025-08-31] MEDS ORDERED: ACETAMINOPHEN 1000 MG/100 ML IV IV ONE (07:00)
[2025-08-31 07:03] LABS: Hematocrit (blood only) 35.6 % (42.0-52.0); Hemoglobin 11.9 g/dl (14.0-18.0); Immature Granulocytes # (auto) 0.05 K/uL (0.01-0.20); Immature Granulocytes % (auto) 0.6 %; Mean Corpuscular Hemoglobin 27.5 pg (25.0-34.0); Mean Corpuscular Volume 82.2 fL (80.0-100.0); Platelet Count 219 K/uL (130-400); RDW Standard Deviation 46.3 fL (36.4-46.3); Red Blood Count 4.33 M/uL (4.70-6.10); White Blood Count 8.72 K/ul (4.8-10.8)
--- NOTE | 2025-08-31 07:20 | History & Physical Bridge Note ---
Date of Service August 31, 2025 History & Physical Bridge Note I have examined the patient, reviewed the History & Physical and in the interval since the performance of the History & Physical I have noted the following changes of clinical significance: worse left leg pain, back pain. Plan for L3 laminectomy for evacuation of infection.
[2025-08-31 07:40] LABS: Creatinine Clr Calc Pharmacy 56.8 ml/min
[2025-08-31] MEDS ORDERED: PROMETHAZINE HCL 6.25 MG in SODIUM CHLORIDE 0.9% 50 ML IV PRN (07:55)
[2025-08-31] MEDS ORDERED: ONDANSETRON INJ 2 MG/ML 2 ML VIAL IV PRN ×2 (07:55→11:09)
[2025-08-31] MEDS ORDERED: ATROPINE SULFATE 0.1 MG/ML 10ML SYR IV PRN (07:55)
[2025-08-31] MEDS ORDERED: NALOXONE HCL 0.4 MG/1 ML VIAL/CARP IV PRN (07:55)
[2025-08-31] MEDS: VANCOMYCIN HCL 1000MG/20ML VIAL ONE (08:30)
[2025-08-31] MEDS ORDERED: PHENYLEPHRINE HCL 10 MG/ML VIAL ONE (08:31)
[2025-08-31] MEDS ORDERED: ePHEDrine sulfate 50 MG/5 ML SYR ONE (08:31)
[2025-08-31] MEDS: GELATIN SPONGE SZ 100 ONE (08:48)
[2025-08-31] MEDS: FLOSEAL HEMOSTATIC MATRIX 10ML TOP ONE (08:49)
[2025-08-31] MEDS ORDERED: SUGAMMADEX SODIUM 200 MG/2 ML VIAL IV ONE (09:12)
[2025-08-31] MEDS: ceFAZolin 330 MG/ML 1 GM VIAL ONE (09:22)
[2025-08-31] MEDS: BUPIVACAINE 0.5 % 5 MG/1 ML MPF 30ML VIAL ONE (09:34)
--- NOTE | 2025-08-31 09:45 | Fluoroscopy Report ---
FL spine 1V any level CLINICAL HISTORY: L3 LAMINECTOMY COMPARISON STUDY: None FLUOROSCOPY TIME: 14 seconds FLUOROSCOPY IMAGES: 3 EXPOSURE DOSE: 9 mGy FINDINGS: Fluoroscopy was provided for L3 laminectomy. IMPRESSION: Intraoperative fluoroscopy. ACT 112: Negative or not required by law. Electronically signed by: Johan Bowden M.D. 08/31/2025 9:43 AM
--- NOTE | 2025-08-31 10:30 | Operative Report ---
[facility] Post Operative Report Pre & Post Diagnosis Operation Date: 08/31/25 07:30 Pre-Op Diagnosis: (1) Lumbar discitis: (2) MSSA bacteremia: (3) Ambulatory dysfunction: (4) Lumbar radiculopathy, acute: (5) 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: Post-Op Diagnosis: (1) Lumbar discitis: (2) MSSA bacteremia: (3) Ambulatory dysfunction: (4) Lumbar radiculopathy, acute: (5) 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: I identified the patient and participated in the time-out.: Yes Procedure Operation Date: 08/31/25 07:30 Actual Procedures 1. Laminectomy for excision or evacuation of intraspinal lesion other than neoplasm, extradural; lumbar L3-5 (lumbar epidural abscess) (56330). Surgeon Vitaly Hensley MD Piecer Jonathan Patel Estimated Blood Loss 75 Findings Consistent with Post-Op Diagnosis Specimens Multiple cultures to microbiology Drains Jarad Anesthesia Type General Complications none Disposition Disposition: Recovery Room Description of Procedure Informed consent was obtained. In the preoperative holding area, the patient's lumbar spine was marked with a marking pen. The patient was taken to the operating room and anesthesia was initiated. The patient was placed prone on a Chad table. The patients back was prepped and draped in typical sterile fashion. A timeout was performed. Fluoroscopy was used to approximate a skin incision which was then made with a 10 blade scalpel. Dissection was completed down to the lamina. The lamina at L3- L4 was thinned with a high speed bur, The lamina and ligamentum flavum were removed over the L3-4 disc space as well as the superior L4 lamina. There was inflammatory tissue but no obvious purulent fluid collection. Cultures were sent and ancef given. I spinous processes removed and lamina thinned and removed completely. I performed bilateral medial facetectomies to thoroughly decompress L3-4 and L4-5 and explore the lateral recesses. I continued the laminectomy down removing the superior aspect of the L5. Again no sign of abscess however inflammatory tissue was present which was contiguous with the L3-4 inflammatory tissues. I continued slightly cephalad to the inferior L2 lamina on the left, exploring the epidural space with no sign of considerable infection. The la teral recesses were decompressed from L3-5. The central thecal sac and nerve roots were well decompressed from phlegmon type tissue and chronic stenosis. I explored once more and still did not see any purulence, I broke up the phlegmon with a nerve hook to increase blood flow. The wound was thoroughly irrigated. A drain was placed. The fascia, subcutaneous and skin were closed in layers. At the end of the case, all counts were correct. The patient was wakened from anesthesia and taken to the post-anesthesia care unit in stable condition. POSTOPERATIVE PLAN: The patient will be continued on antibiotics per ID recs. Will follow cultures, SCDs, resume Eliquis on Wednesday depending on drain output. I attest to the content of the Intraoperative Record and any orders documented therein. Any exceptions are noted below.
--- NOTE | 2025-08-31 10:47 | Anesthesiology Progress Note ---
Date of Service August 31, 2025 Anesthesia Post Procedure Vital Signs Vital Signs: Temp Pulse Pulse Resp BP BP Pulse Ox 08/31/25 10:40 86 18 134/96 95 08/31/25 10:30 80 16 155/75 H 96 08/31/25 10:20 80 14 168/80 H 95 08/31/25 10:10 36.9 C 78 14 159/78 H 95 08/31/25 10:05 78 12 168/80 H 96 08/31/25 09:55 78 15 163/90 H 94 08/31/25 09:48 36.1 C L 80 12 158/81 H 94 08/31/25 07:09 36.8 C 74 18 173/94 H 92 08/30/25 22:29 36.6 C 64 16 124/76 93 08/30/25 17:25 36.4 C L 08/30/25 15:27 36.5 C 59 L 18 115/65 93 O2 Del Method O2 Flow Rate 08/31/25 10:40 Nasal Cannula 3 08/31/25 10:30 Nasal Cannula 3 08/31/25 10:20 Nasal Cannula 3 08/31/25 10:10 Nasal Cannula 4 08/31/25 10:05 Nasal Cannula 4 08/31/25 09:55 Oxymask 6 08/31/25 09:48 Oxymask 9 08/31/25 07:09 Room Air 08/30/25 22:29 Room Air 08/30/25 17:25 08/30/25 15:27 Room Air Pain Intensity Back: Pain Intensity: 4 Transfer of Care Handoff Completed per policy Notes Mental Status: alert / awake / arousable Patient Amnestic to Procedure: Yes Nausea / Vomiting: adequately controlled Pain: adequately controlled Airway Patency, RR, SpO2: stable & adequate BP & HR: stable & adequate Hydration State: stable & adequate Anesthetic Complications: no major complications apparent
[2025-08-31] MEDS ORDERED: METOCLOPRAMIDE HCL INJ 5 MG/ML 2 ML VIAL IV PRN (11:09)
[2025-08-31] MEDS ORDERED: LORazepam 0.5 MG TAB PO PRN (11:09)
[2025-08-31] MEDS ORDERED: FAMOTIDINE 20 MG TAB PO PRN (11:09)
[2025-08-31] MEDS ORDERED: SOD PHOSPHATE/SOD BIPHOSPHATE ENEMA 132 ML BTL PR PRN (11:09)
[2025-08-31] MEDS ORDERED: ONDANSETRON 4 MG OD TAB PO PRN (11:09)
[2025-08-31] MEDS ORDERED: ACETAMINOPHEN 500 MG TAB PO PRN (11:09)
[2025-08-31] MEDS ORDERED: DO NOT ADMINISTER FLU VACCINE PRN (11:09)
[2025-08-31] MEDS ORDERED: diphenhydrAMINE Capsule 25 MG CAP PO PRN (11:09)
[2025-08-31] MEDS ORDERED: ALUMINUM/MAGNESIUM SUSP 30 ML UDC PO PRN (11:09)
[2025-08-31] MEDS ORDERED: DO NOT ADMINISTER PNEUMOCOCCAL VACCINE PRN (11:09)
[2025-08-31] MEDS ORDERED: LORazepam Inj 0.5 MG in SYRINGE 0.25 ML IV PRN (11:09)
[2025-08-31] MEDS: LACTATED RINGER'S 1,000 ML IV SCH (12:28)
[2025-08-31] MEDS: KETOROLAC TROMETHAMINE 15 MG/ML VIAL IV SCH (12:29)
--- NOTE | 2025-08-31 13:19 | Infectious Disease Progress Nt ---
Date of Service August 31, 2025 Assessment & Plan (1) Lumbar discitis: (2) MSSA bacteremia: Admission and Anticipated Discharge Date Admission Date: August 27, 2025 Subjective Subsequent visit was provided via telemedicine using two-way real-time interactive telecommunication between the patient and the telemedicine provider. For the duration of the visit, the provider was performing the assessment from a different facility than the patient. This includesuse of bluetooth stethoscope forauscultationperformed by the telepresenter that the telemedicine provider can hear if described in the physical exam. 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 (Phone Number For Physician Use Only) Results & Data Vital Signs (Past 12 Hours) Vital Signs Temp Pulse Pulse Resp BP BP Pulse Ox 08/31/25 11:58 36.9 C 86 18 94/58 L 97 08/31/25 11:29 37.0 C 81 12 166/77 H 93 08/31/25 11:12 08/31/25 11:12 37.1 C 85 12 154/80 H 91 08/31/25 10:50 77 12 155/75 H 94 08/31/25 10:40 86 18 134/96 95 08/31/25 10:30 80 16 155/75 H 96 08/31/25 10:20 80 14 168/80 H 95 08/31/25 10:10 36.9 C 78 14 159/78 H 95 08/31/25 10:05 78 12 168/80 H 96 08/31/25 09:55 78 15 163/90 H 94 08/31/25 09:48 36.1 C L 80 12 158/81 H 94 08/31/25 07:09 36.8 C 74 18 173/94 H 92 O2 Del Method O2 Flow Rate 08/31/25 11:58 Nasal Cannula 2 08/31/25 11:29 Nasal Cannula 2 08/31/25 11:12 Nasal Cannula 2 08/31/25 11:12 Nasal Cannula 2 08/31/25 10:50 Nasal Cannula 3 08/31/25 10:40 Nasal Cannula 3 08/31/25 10:30 Nasal Cannula 3 08/31/25 10:20 Nasal Cannula 3 08/31/25 10:10 Nasal Cannula 4 08/31/25 10:05 Nasal Cannula 4 08/31/25 09:55 Oxymask 6 08/31/25 09:48 Oxymask 9 08/31/25 07:09 Room Air
--- NOTE | 2025-08-31 14:55 | Infectious Disease Progress Nt ---
Date of Service August 31, 2025 Assessment & Plan (1) Lumbar discitis: (2) MSSA bacteremia: Plan ID Problem List: # MSSA bacteremia # MSSA L3-L4 discitis/osteomyelitis, L2-L3 prevertebral phlegmon/abscess, L3-L4 epidural phlegmon, s/p laminectomy L3-L5 on 08/31/25. OR findings of inflammatory-appearing tissue but no obvious purulent fluid collection. # History of R shoulder replacement # History of C-spine epidural abscess in 2019 s/p C3-C6 fixation # Reported antibiotic allergies: amox/clav (lip swelling) tolerates cefazolin/cefepime, sulfa (lip swelling), clarithromycin (GI upset) Impression: Constantino Quiroz is an 84-year-old man with history of HTN, HLD, Aflutter on Eliquis, psoriatic arthritis, history of postlaminectomy syndrome, history of cervical dystonia, history of C-spine epidural abscess in 2019 s/p C3-C6 fixation, history of R shoulder replacement, BPH, T2DM c/b prior diabetic foot wounds and nephropathy, who presents to [facility] on 08/27/25 for low back pain, found to have prevertebral edema and abscess at L2-L3, paraspinal muscle edema and enhancement along L paraspinal space to L epidural space, and suspected L3- L4 discitis/osteomyelitis, and BCx + GPCs, BCID c/w MSSA. ID is consulted for lumbar spinal infection and MSSA bacteremia. 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 He has a history of psoriatic arthritis and postlaminectomy syndrome, and has been following with pain management. Every 3 months the pt receives injections (?steroids) in his C- spine. He did have a fall ~2 weeks prior and was seen by a chiropractor. 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 Without saddle anesthesia, no bowel incontinence (does have some urinary incontinence at baseline). No fevers or chills. On arrival, T37. WBC 13, Hgb 12.5. ESR 67 CRP 8.76. Procal normal. CT A/P without acute findings. L-spine CT does reveal subtle inflammatory changes of the soft tissues in the anterior L2-L3 interspace. 08/28 L-spine MRI showing prevertebral soft tissue edema with mild fluid collection at L2-L3, paraspinal muscle edema at L3-L4, abnormal signal with enhancement along L paraspinal space to L epidural space, mild enhancement of endplate seen along L3-L4 c/f infection. He was started on vancomycin and cefepime. Ortho spine was consulted, recommended TLSO and back restrictions. IR felt that pt with phlegmon/edema. At this time, recommending empiric abx treatment. 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 BCx from 08/27 growing GPCs in clusters in 2/2 sets (3/4 bottles), BCID + Staph aureus and neg for MRSA (c/w MSSA) He does have a small wound on his R great toe (wound care photo from 08/28 reviewed). I discussed with primary team on 08/28. 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 Discussion Pt presenting with back pain, found to have L3-L4 discitis/osteomyelitis, L2-L3 prevertebral phlegmon/abscess, L3-L4 epidural phlegmon. BCx from 08/27 + MSSA in 3/4 bottles, which is very likely the causative pathogen of the spinal infection as well. Original source of MSSA is unclear; pt does have a small wound on his R great toe. Ortho spine following, given worsening symptoms, s/p laminectomy L3- L5 on 08/31/25. OR findings of inflammatory-appearing tissue but no obvious purulent fluid collection. No hardware was placed. 08/29 TTE with no evidence of mass or vegetation; LVEF normal, LA moderately dilated, AV sclerosis without stenosis, elevated RVSP, IVC mildly dilated. BCx remained positive on 08/28, reassuringly BCx from 08/29 remain NGTD, and pt will receive a 6-week course regardless, thus ANA not pursued at this time. Would continue to monitor closely for any new/worsening focal complaints (e.g., joint pain, back pain) with low threshold to image/evaluate as possible metastatic infection. Notably, pt has a history of C-spine epidural abscess in 2020 s/p C3- C6 fixation. Given chronic neck pain, 08/28 C-spine MRI obtained, artifact from hardware and motion but no e/o abscess, discitis/osteomyelitis, or abnormal enhancement to suggest infection. Pt with R shoulder pain and history of R shoulder replacement; evaluated by ortho without c/f PJI at this time. Would continue cefazolin for MSSA bacteremia and spinal infection to complete a 6-week course from OR date. Sometimes, a longer course (e.g., 8-12 weeks or longer) are required for spinal infection, though in this case the patient had a laminectomy without significant purulence. Similarly, sometimes repeat spine MRI can be considered prior to EOT, though this patient has had surgical source control thus MRI is less likely to be helpful unless significant ongoing symptoms or lab abnormalities. Recommendations: - Continue cefazolin 2 g IV q8h for MSSA bacteremia and spinal infection to complete a 6-week course of IV abx (08/31/25 10/11/25). If discharging home, can change to cefazolin 6 g IV daily continuous infusion if desired - F/u BCx from 08/29 to establish clearance. If further BCx turn positive, please repeat additional BCx and reengage ID - F/u 08/31 OR Cx until finalized. Please reengage ID if organisms other than M SSA are isolated - Ensure close follow-up with ortho spine - Continue to monitor closely for any new/worsening focal complaints (e.g., joint pain, back pain) with low threshold to image/evaluate as possible metastatic infection - Recommend ID clinic follow-up. Please see below Antibiotic Discharge Summary for OPAT details, monitoring, and follow-up details Outpatient Parental Antibiotic Discharge summary Discharging Physician please order the following on discharge: Diagnosis: MSSA bacteremia and MSSA L3-L4 discitis/osteomyelitis, L2-L3 prevertebral phlegmon/abscess, L3-L4 epidural phlegmon, s/p laminectomy L3-L5 on 08/31/25 Organism: MSSA Antibiotic (dose and frequency): cefazolin 2 g IV q8h (or cefazolin 6 g IV daily continuous infusion, if desired by patient/if discharging home) Start of therapy: 08/31/25 End of therapy: 10/11/25 Labs should be faxed to: ID office, [facility] [phone] Labs needed and frequency: CBC w/ diff, CMP, ESR, CRP Please follow up with [facility] in outpatient clinic: Clinic Address [address] [place] [id number] Office (P) [phone] Appointment-time frame: 4-5 weeks Plan discussed with primary team. Thank you for letting ID participate in the care of this patient. ID will sign off at this time. If questions, please contact [facility] at [phone]. Echo Tam MD, MHS Infectious Diseases [facility] direct line: [phone] Admission and Anticipated Discharge Date Admission Date: August 27, 2025 Subjective This patient recommendation is based on a telemedicine consult request which was completed asynchronously through chart review and information provided by the primary physician. The patient was not seen or examined today. The evaluation is consultative in nature and all patient care and treatment decisions can either be accepted or rejected by the patient's primary hospital-based treating physician using their own independent medical judgment for their patient. PLEASE NOTE: E-consult was performed for this visit given lack of telepresenter availability. Time Spent Reviewing Chart: 31+ minutes PLEASE NOTE: E-consult was performed for this visit given lack of telepresenter availability. - Pt went to OR today 08/31 and underwent laminectomy L3-L5. OR findings of inflammatory-appearing tissue but no obvious purulent fluid collection. - Afebrile, WBC 8.72 - BCx from 08/29 remain NGTD - Spoke with primary team, pt tentatively discharging next week Results & Data Vital Signs (Past 12 Hours) Vital Signs Temp Pulse Pulse Resp BP BP Pulse Ox 08/31/25 12:39 36.8 C 83 16 130/75 96 08/31/25 11:58 36.9 C 86 18 94/58 L 97 08/31/25 11:29 37.0 C 81 12 166/77 H 93 08/31/25 11:12 08/31/25 11:12 37.1 C 85 12 154/80 H 91 08/31/25 10:50 77 12 155/75 H 94 08/31/25 10:40 86 18 134/96 95 08/31/25 10:30 80 16 155/75 H 96 08/31/25 10:20 80 14 168/80 H 95 08/31/25 10:10 36.9 C 78 14 159/78 H 95 08/31/25 10:05 78 12 168/80 H 96 08/31/25 09:55 78 15 163/90 H 94 08/31/25 09:48 36.1 C L 80 12 158/81 H 94 08/31/25 07:09 36.8 C 74 18 173/94 H 92 O2 Del Method O2 Flow Rate 08/31/25 12:39 Nasal Cannula 2 08/31/25 11:58 Nasal Cannula 2 08/31/25 11:29 Nasal Cannula 2 08/31/25 11:12 Nasal Cannula 2 08/31/25 11:12 Nasal Cannula 2 08/31/25 10:50 Nasal Cannula 3 08/31/25 10:40 Nasal Cannula 3 08/31/25 10:30 Nasal Cannula 3 08/31/25 10:20 Nasal Cannula 3 08/31/25 10:10 Nasal Cannula 4 08/31/25 10:05 Nasal Cannula 4 08/31/25 09:55 Oxymask 6 08/31/25 09:48 Oxymask 9 08/31/25 07:09 Room Air Laboratory Results Diagnostics: 08/31 Op note Laminectomy for excision or evacuation of intraspinal lesion other than neoplasm, extradural; lumbar L3-5 (lumbar epidural abscess) (86733). Fluoroscopy was used to approximate a skin incision which was then made with a 10 blade scalpel. Dissection was completed down to the lamina. The lamina at L3- L4 was thinned with a high speed bur, The lamina and ligamentum flavum were rem danni over the L3-4 disc space as well as the superior L4 lamina. There was inflammatory tissue but no obvious purulent fluid collection. Cultures were sent and ancef given. I spinous processes removed and lamina thinned and removed completely. I performed bilateral medial facetectomies to thoroughly decompress L3-4 and L4-5 and explore the lateral recesses. I continued the laminectomy down removing the superior aspect of the L5. Again no sign of abscess however inflammatory tissue was present which was contiguous with the L3-4 inflammatory tissues. I continued slightly cephalad to the inferior L2 lamina on the left, exploring the epidural space with no sign of considerable infection. The lateral recesses were decompressed from L3-5. The central thecal sac and nerve roots were well decompressed from phlegmon type tissue and chronic stenosis. I explored once more and still did not see any purulence, I broke up the phlegmon with a nerve hook to increase blood flow. The wound was thoroughly irrigated. A drain was placed. The fascia, subcutaneous and skin were closed in layers. 08/29 R shoulder X-ray Right shoulder arthroplasty changes are again noted. There is questionable fracture of one of the arthroplasty screws at the level of the glenoid. This is difficult to appreciate with certainty on prior exam. Orthopedic hardware otherwise appears to be well-seated and intact. Productive changes of the acromioclavicular joint not appreciably changed. No appreciated dislocation. No occult osseous fracture. Impression: 1. Question fracture deformity right shoulder arthroplasty screw at the level of the glenoid component. This is difficult to appreciate with certainty on prior exam. 2. Otherwise stable exam. No appreciated acute process. 08/29 TTE No evidence of mass or vegetation; LVEF normal, LA moderately dilated, AV sclerosis without stenosis, elevated RVSP, IVC mildly dilated 08/28 C-spine MRI 1. Status post C3-C6 fusion with adjacent segment disease. 2. No abnormal enhancement, disc herniation, spinal stenosis, epidural hematoma/abscess, abnormal cord signal, compression deformity or discitis/osteomyelitis. 3. Moderate artifact from motion and orthopedic hardware in the cervical spine. 08/28 L-spine MRI 1. Significant lumbar spondylo-degenerative changes with lumbar disc herniations as described above?stable. 2. Prevertebral soft tissue edema with mild fluid collection is seen at the L2 and L3 vertebral level, with left paraspinal muscle edema at the L3/L4 level. Abnormal signal intensity with enhancement seen extending along left paraspinal space to left epidural space. Mild enhancement of end plate also seen along L3-L4 disc?likely infective/inflammatory etiology. 3. No bone marrow edema in other vertebral bodies. 08/27 CT A/P 1. Unchanged mild abdominal aortic aneurysm 2. Bilateral renal calculi and left renal cyst Micro Data: 08/31 lower back OR Cx (L3-L4 epidural space #2): PEND; g/s no organisms 08/31 back OR Cx (inflammatory tissue L3-L4): PEND; g/s no organisms 08/31 lower back OR Cx (L3-L4 epidural space #1): PEND; g/s no organisms 08/29 BCx x2: NGTD 08/28 BCx x2: MSSA in 2/2 sets (2/4 bottles) 08/28 UCx: E. faecalis 08/27 BCx x2: MSSA in 2/2 sets (3/4 bottles), (R-tetra, S-TMP/SMX, linezolid) Antibiotic Summary: cefazolin (08/28 present) prior vancomycin (08/27) cefepime (08/27)
--- NOTE | 2025-08-31 15:44 | Hospitalist Progress Note ---
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 His evaluation reveals mild leukocytosis of 13, mild anemia with H&H 12.5/39.5. ESR 67, still pending CRP results. Procalcitonin is normal. CTAP is without acute findings. His L-spine CT does reveal subtle inflammatory changes of the soft tissues in the anterior L2-L3 interspace. Admission for intractable back pain, pending MRI to rule out discitis. ##MSSA bacteremia -ID on consult -08/27 BCx x2: Staph aureus in 2/2 sets (3/4 bottles), BCID + Staph aureus and neg for MRSA (c/w MSSA) -08/28 BCx x2: gram + cocci -BCx from 08/29 remain with no growth to date -afebrile, WBC 13.00>16.92>15.13>9.08>8.72 -ID consulted -ID recs with continuance of cefazolin 2g IV q8h -Anticipate at least an 8-week course of IV abx for MSSA bacteremia and spinal infection, and repeat L-spine MRI prior to EOT -TTE with no evidence of a mass or vegetation, normal mitral valve anatomy -ANA per ID recs -C-spine MRI without epidural hematoma/abscess, abnormal cord signal, discitis/osteo -Right toe x-ray secondary to wound to right great toe with no underlying osteo -Hx of previous right shoulder TSA, right shoulder X-ray, consulted Dr. Valentine -underwent laminectomy for excision or evacuation of intraspinal lesion other than neoplasm, extradural; lumbar L3-5 (lumbar epidural abscess) with Dr. 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 Did have a fall approximately 2 weeks ago and was seen by chiropractor, worsening back pain that had initially improved. W/o worse numbness/tingling (h/o neuropathy), saddle anesthesia, or incontinence of bowel or bladder (does have urinary incontinence at baseline). No infectious symptoms. Admission for intractable back pain, cannot manage at home, with concerns for early discitis, pending workup to r/o. - CTAP unchanged mild AAA, bilateral renal calculi and L renal cyst - L-spine CT does reveal subtle inflammatory changes of the soft tissues in the anterior L2-L3 interspace. 08/28 L-spine MRI showing prevertebral soft tissue edema with mild fluid collection at L2-L3, paraspinal muscle edema at L3-L4, abnormal signal with enhancement along L paraspinal space to L epidural space, mild enhancement of endplate seen along L3-L4 c/f infection. He was started on vancomycin and cefepime. Ortho spine was consulted, recommended TLSO and back restrictions. IR felt that pt with phlegmon/edema. At this time, recommending empiric abx treatment. 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 Lv mena 08/31/25, OR findings of inflammatory-appearing tissue but no obvious purulent fluid collection. - Fall precautions - Heating pad prn - Acetaminophen prn fever/pain, morphine moderate/severe pain, oxycodone prn - MRI lumbar degenerative changes with lumbar disc herniations, prevertebral soft tissue edema with fluid collection L2-L3, L paraspinal muscle edema L3/L4, abnormal signal intensity with enhancement end plate L3-L4, ? infective/inflammatory, no bone marrow edema - Thoracic spine x-ray for complaints of tenderness to palpation s/p fall two weeks ago with no findings - PT/OT consulted ##UTI -denies urinary symptoms of dysuria, fever, flank pain, foul-smelling urine -UA with 1+ leuks, UC with enterococcus faecalis, awaiting sensitivities #T2DM, DMT2, at home regimen includes metformin - Glucose on admission 190; Most recent A1C 05/2025 @ 5.1% - Hold metformin - SSI with target BSG range 110-140mg/dL, CF 30, carb ratio 10 - BSG ACHS - Adjust regimen as needed #A-flutter -Amiodarone, HOLD Eliquis and resume Eliquis on Wednesday depending on drain output per ortho recommendation, metoprolol #HTN -Amlodipine, furosemide, losartan #BPH/Urinary incontinence -Alfuzosin, finasteride, vibegron #Depression -Duloxetine #HLD -Simvastatin #Anemia -H/H 11.9/35.6 -ferrous sulfate, folic acid #GERD -Pantoprazole Dispo: Admit, med/sx, plan for rehab upon discharge possible early next week VTE prophylaxis: Eliquis held for now, SCDs post op, resume Eliquis Wednesday per ortho recommendations updated regarding plan at bedside Admission and Anticipated Discharge Date Admission Date: August 27, 2025 Supervising Physician Co-Signing Physician Notes I did not see of examine the patient. I verified all galindo points and agree with CRYSTAL Jennings with the following exceptions and/or additions: None Subjective Pt. returned form surgery this am. at bedside and provided update. States he feels as though his pain is already improved post surgery in his lumbar area. Reports wanting to eat. No nausea or vomiting. Review of Systems Review of Systems: All systems reviewed & are unremarkable except as noted in Subjective Physical Exam Physical Exam: GENERAL APPEARANCE: A&O. Sitting comfortably in bed. NAD. SKIN: Normal color without rashes or lesions. Normal turgor. HEENT: Head AT/NC. Buccal mucosa is moist and pink. NECK: No jugular venous distention. No thyroid enlargement. There is no lymphadenopathy. HEART: RRR without m/g/r LUNGS: Normal inspiratory effort. CTA without w/r/r ABDOMEN: No guarding or rigidity. Normoactive BS in all four quadrants. Abdomen soft and NT. MSK: No bony gross/deformities throughout. ROM intact. 4/5 MS to bilateral lower ext. +dorsiflexion/plantar flexion of bilateral feet. Sensation intact to BL lower ext./feet. Dressing present to lower back. BOOGIE drain present draining small amounts of bloody drainage. EXTREMITIES: No edema, No peripheral cyanosis. Neuro: CN 2-12 grossly intact. No focal neuro deficits PSYCHIATRIC: Normal affect. Eye contact is good. Speech is normal rate and content. Responses are appropriate. Results & Data Results & Data Vital Signs (Past 12 Hours) Vital Signs Temp Pulse Pulse Resp BP BP Pulse Ox 08/31/25 14:18 74 18 127/73 93 08/31/25 12:39 36.8 C 83 16 130/75 96 08/31/25 12:03 74 18 156/76 H 93 08/31/25 11:58 36.9 C 86 18 94/58 L 97 08/31/25 11:29 37.0 C 81 12 166/77 H 93 08/31/25 11:12 08/31/25 11:12 37.1 C 85 12 154/80 H 91 08/31/25 10:50 77 12 155/75 H 94 08/31/25 10:40 86 18 134/96 95 08/31/25 10:30 80 16 155/75 H 96 08/31/25 10:20 80 14 168/80 H 95 08/31/25 10:10 36.9 C 78 14 159/78 H 95 08/31/25 10:05 78 12 168/80 H 96 08/31/25 09:55 78 15 163/90 H 94 08/31/25 09:48 36.1 C L 80 12 158/81 H 94 08/31/25 07:09 36.8 C 74 18 173/94 H 92 O2 Del Method O2 Flow Rate 08/31/25 14:18 Room Air 08/31/25 12:39 Nasal Cannula 2 08/31/25 12:03 Room Air 08/31/25 11:58 Nasal Cannula 2 08/31/25 11:29 Nasal Cannula 2 08/31/25 11:12 Nasal Cannula 2 08/31/25 11:12 Nasal Cannula 2 08/31/25 10:50 Nasal Cannula 3 08/31/25 10:40 Nasal Cannula 3 08/31/25 10:30 Nasal Cannula 3 08/31/25 10:20 Nasal Cannula 3 08/31/25 10:10 Nasal Cannula 4 08/31/25 10:05 Nasal Cannula 4 08/31/25 09:55 Oxymask 6 08/31/25 09:48 Oxymask 9 08/31/25 07:09 Room Air Laboratory Results Labs reviewed: CBC, Cr, BUN PG Care Time/CCT Total # of Minutes Spent Total Time Spent with Patient: Total time spent is greater than 50% in coordination of care (as documented) at patient's floor/unit and/or counseling patient: Coding Level of Care Code 92276 SUB INP/OBS CARE 3/50MIN Diagnoses 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 G06.1 MSSA bacteremia R78.81; B95.61 Lumbar discitis M46.46 Atrial flutter, unspecified type I48.92 Atrial flutter type: unspecified Primary hypertension I10 Hypertension type: primary hypertension Hyperlipidemia, unspecified hyperlipidemia type E78.5 Hyperlipidemia type: unspecified Diabetes mellitus, type 2 E11.9 (4) Atrial flutter Atrial flutter type: unspecified Qualified Code(s): I48.92 - Unspecified atrial flutter (5) Hypertension Hypertension type: primary hypertension Qualified Code(s): I10 - Essential (primary) hypertension (6) Hyperlipidemia Hyperlipidemia type: unspecified Qualified Code(s): E78.5 - Hyperlipidemia, unspecified"
[2025-08-31] MEDS: DOCUSATE SODIUM/SENNA 50/8.6MG TAB PO SCH (20:11)
[2025-09-01] MEDS: POLYETHYLENE (MIRALAX) 17 GM PACK PO SCH (05:50)
[2025-09-01 06:33] LABS: Hematocrit (blood only) 31.9 % (42.0-52.0); Hemoglobin 10.5 g/dl (14.0-18.0); Immature Granulocytes # (auto) 0.09 K/uL (0.01-0.20); Immature Granulocytes % (auto) 0.7 %; Mean Corpuscular Hemoglobin 27.3 pg (25.0-34.0); Mean Corpuscular Volume 82.9 fL (80.0-100.0); Platelet Count 225 K/uL (130-400); RDW Standard Deviation 46.2 fL (36.4-46.3); Red Blood Count 3.85 M/uL (4.70-6.10); White Blood Count 13.11 K/ul (4.8-10.8)
[2025-09-01 07:17] LABS: Anion Gap 7.0 (3-11); Blood Urea Nitrogen 25.0 mg/dl (6-23); Calcium 9.2 mg/dl (8.6-10.3); Carbon Dioxide 29.0 mmol/L (21-32); Chloride 100.0 mmol/L (98-107); Creatinine Clr Calc Pharmacy 56.3 ml/min; Glucose 141.0 mg/dl (70-99(Fasting)); Potassium 4.9 mmol/L (3.5-5.1); Sodium 136.0 mmol/L (136-145)
--- NOTE | 2025-09-01 11:12 | Orthopedic Progress Note ---
Date of Service September 01, 2025 Assessment & Plan (1) 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: (2) Lumbar radiculopathy, acute: (3) S/P lumbar laminectomy: weight bear as tolerated, TLSO brace is optional Pain control ok to restart Eliquis later today SCDs Mobilize with PT will continue drain until minimal output IV abx per ID based on cultures Subjective s/p Lumbar laminectomy, leg pain has resolved. Moves all extremities to command. Reports back pain at incision site, states he tried to get up with PT this AM but the back pain was limiting factor and brace aggravated his incision. No saddle anesthesia, new numbness other than his peripheral neuropathy. Review of Systems All systems reviewed & are unremarkable except as noted in HPI & below. Physical Exam 4/5 strength in bilateral LE all muscle groups, limited by pain sensation intact other than baseline neuropathy, drain functioning Results & Data Results & Data Laboratory Results . Diagnostic Findings . PG Care Time/CCT Total # of Minutes Spent Total Time Spent with Patient: Total time spent is greater than 50% in coordination of care (as documented) at patient's floor/unit and/or counseling patient: Coding Level of Care Code 88903 Post Operative Follow-Up Diagnoses 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 G06.1 Lumbar radiculopathy, acute M54.16 S/P lumbar laminectomy Z98.890
--- NOTE | 2025-09-01 13:45 | Hospitalist Progress Note ---
"Date of Service September 01, 2025 Assessment & Plan (1) 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: (2) MSSA bacteremia: (3) Lumbar discitis: (4) Atrial flutter: (5) Hypertension: (6) Hyperlipidemia: (7) Diabetes mellitus, type 2: Plan 84-year-old male T2DM with prior ulcers and nephropathy, HTN, HLD, A-flutter on Eliquis, psoriatic arthritis, BPH, elevated PSA, urinary incontinence, venous insufficiency, chronic anemia, TAYLOR, postlaminectomy syndrome, and cervical dystonia presenting for low back pain that has worsened starting the day [employer]. His evaluation reveals mild leukocytosis of 13, mild anemia with H&H 12.5/39.5. ESR 67, still pending CRP results. Procalcitonin is normal. CTAP is without acute findings. His L-spine CT does reveal subtle inflammatory changes of the soft tissues in the anterior L2-L3 interspace. Admission for intractable back pain, pending MRI to rule out discitis. ##MSSA bacteremia -ID on consult -08/27 BCx x2: Staph aureus in 2/2 sets (3/4 bottles), BCID + Staph aureus and neg for MRSA (c/w MSSA) -08/28 BCx x2: gram + cocci -BCx from 08/29 remain with no growth to date -afebrile, WBC 13.00>16.92>15.13>9.08>8.72>13.11 (post surgery) -ID recs with continuance of cefazolin 2g IV q8h (START ON 08/31/25, STOP on 10/11/25), can consider cefazolin 6g IV daily continuous infusion if desired by patient and for d/c purposes) -Anticipate at least an 8-week course of IV abx for MSSA bacteremia and spinal infection, and repeat L-spine MRI prior to EOT -TTE with no evidence of a mass or vegetation, normal mitral valve anatomy -ANA per ID recs -C-spine MRI without epidural hematoma/abscess, abnormal cord signal, discitis/osteo -Right toe x-ray secondary to wound to right great toe with no underlying osteo -Hx of previous right shoulder TSA, right shoulder X-ray (questionable fracture deformity right shoulder arthroplasty screw), consulted Dr. Valentine, seen by PA on 08/30/25 with no clinical evidence of PJI of right shoulder, follow up with ortho when back on service 09/03/25 for follow up -underwent laminectomy for excision or evacuation of intraspinal lesion other than neoplasm, extradural; lumbar L3-5 (lumbar epidural abscess) with Dr. Hensley 08/31/25 #Intractable back pain|Discitis|s/p laminectomy for excision and evacuation of intraspinal lesion other than neoplasm, extradural; lumbar L3-L5 (lumbar epidural abscess) Back pain starting 1 day [employer]; prior history of psoriatic arthritis and postlaminectomy syndrome, was following with pain management for such, ~ 3 months receives injections in C spine. Did have a fall approximately 2 weeks ago and was seen by chiropractor, worsening back pain that had initially improved. W/o worse numbness/tingling (h/o neuropathy), saddle anesthesia, or incontinence of bowel or bladder (does have urinary incontinence at baseline). No infectious symptoms. Admission for intractable back pain, cannot manage at home, with concerns for early discitis, pending workup to r/o. - CTAP unchanged mild AAA, bilateral renal calculi and L renal cyst - L-spine CT does reveal subtle inflammatory changes of the soft tissues in the anterior L2-L3 interspace. 08/28 L-spine MRI showing prevertebral soft tissue edema with mild fluid collection at L2-L3, paraspinal muscle edema at L3-L4, abnormal signal with enhancement along L paraspinal space to L epidural space, mild enhancement of endplate seen along L3-L4 c/f infection. He was started on vancomycin and cefepime. Ortho spine was consulted, recommended TLSO and back restrictions. IR felt that pt with phlegmon/edema. At this time, recommending empiric abx treatment. 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 infective/inflammatory, no bone marrow edema - underwent laminectomy for excision or evacuation of intraspinal lesion other than neoplasm, extradural; lumbar L3-5 (lumbar epidural abscess) with Dr. Hensley 08/31/25, OR findings of inflammatory-appearing tissue but no obvious purulent fluid collection. - Fall precautions - Heating pad prn - Acetaminophen prn fever/pain, morphine moderate/severe pain, oxycodone prn - Thoracic spine x-ray for complaints of tenderness to palpation s/p fall two weeks ago with no findings - PT/OT consulted ##UTI -denies urinary symptoms of dysuria, fever, flank pain, foul-smelling urine -UA with 1+ leuks, UC with enterococcus faecalis, awaiting sensitivities #T2DM, DMT2, at home regimen includes metformin - Glucose on admission 190; Most recent A1C 05/2025 @ 5.1% - Hold metformin - SSI with target BSG range 110-140mg/dL, CF 30, carb ratio 10 - BSG ACHS - Adjust regimen as needed #A-flutter -Amiodarone, RESUME Eliquis this evening per ortho recommendations, metoprolol #HTN -Amlodipine, furosemide, losartan #BPH/Urinary incontinence -Alfuzosin, finasteride, vibegron #Depression -Duloxetine #HLD -Simvastatin #GERD -Pantoprazole Dispo: Admit, med/sx, plan for rehab upon discharge possible early next week VTE prophylaxis: START Yoly Reid post op updated regarding plan at bedside Admission and Anticipated Discharge Date Admission Date: August 27, 2025 Supervising Physician Co-Signing Physician Notes I did not see of examine the patient. I verified all galindo points and agree with CRYSTAL Jennings with the following exceptions and/or additions: None Subjective Patient lying in bed this am. is at the bedside. States his pain has improved in his left leg. Most of his pain is localized in his lower back where his incision is. Eating and drinking well. Denies saddle anesthesia symptoms, denies new numbness/tingling in bilateral legs outside of baseline neuropathy symptoms. Review of Systems Review of Systems: All systems reviewed & are unremarkable except as noted in Subjective Physical Exam Physical Exam: GENERAL APPEARANCE: A&O. Sitting comfortably in bed. NAD. SKIN: Normal color without rashes or lesions. Normal turgor. HEENT: Head AT/NC. Buccal mucosa is moist and pink. NECK: No jugular venous distention. No thyroid enlargement. There is no lymphadenopathy. HEART: RRR without m/g/r LUNGS: Normal inspiratory effort. CTA without w/r/r ABDOMEN: No guarding or rigidity. Normoactive BS in all four quadrants. Abdomen soft and NT. MSK: No bony gross/deformities throughout. ROM intact. 4/5 MS to bilateral lower ext. +dorsiflexion/plantar flexion of bilateral feet. Sensation intact to BL lower ext./feet. Dressing present to lower back. BOOGIE drain present draining small amounts of bloody drainage. EXTREMITIES: No edema, No peripheral cyanosis. Neuro: CN 2-12 grossly intact. No focal neuro deficits PSYCHIATRIC: Normal affect. Eye contact is good. Speech is normal rate and content. Responses are appropriate. Results & Data Results & Data Vital Signs (Past 12 Hours) Vital Signs Temp Pulse Resp BP Pulse Ox O2 Del Method O2 Flow Rate 09/01/25 11:30 96 09/01/25 11:15 97 09/01/25 07:38 36.8 C 59 L 16 125/68 97 Room Air 09/01/25 07:11 Nasal Cannula 09/01/25 03:22 36.7 C 63 16 128/74 97 Nasal Cannula 2 Laboratory Results Labs reviewed: CBC, BMP, CRP PG Care Time/CCT Total # of Minutes Spent Total Time Spent with Patient: Total time spent is greater than 50% in coordination of care (as documented) at patient's floor/unit and/or counseling patient: Coding Level of Care Code 95962 SUB INP/OBS CARE 3/50MIN Diagnoses 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 G06.1 MSSA bacteremia R78.81; B95.61 Lumbar discitis M46.46 Atrial flutter, unspecified type I48.92 Atrial flutter type: unspecified Primary hypertension I10 Hypertension type: primary hypertension Hyperlipidemia, unspecified hyperlipidemia type E78.5 Hyperlipidemia type: unspecified Diabetes mellitus, type 2 E11.9 (4) Atrial flutter Atrial flutter type: unspecified Qualified Code(s): I48.92 - Unspecified atrial flutter (5) Hypertension Hypertension type: primary hypertension Qualified Code(s): I10 - Essential (primary) hypertension (6) Hyperlipidemia Hyperlipidemia type: unspecified Qualified Code(s): E78.5 - Hyperlipidemia, unspecified"
[2025-09-01] MEDS: MAGNESIUM HYDROXIDE SUSP 30 ML UDC PO PRN (20:56)
[2025-09-02 06:34] LABS: Hematocrit (blood only) 32.2 % (42.0-52.0); Hemoglobin 10.1 g/dl (14.0-18.0); Immature Granulocytes # (auto) 0.12 K/uL (0.01-0.20); Immature Granulocytes % (auto) 1.2 %; Mean Corpuscular Hemoglobin 26.5 pg (25.0-34.0); Mean Corpuscular Volume 84.5 fL (80.0-100.0); Platelet Count 255 K/uL (130-400); RDW Standard Deviation 47.0 fL (36.4-46.3); Red Blood Count 3.81 M/uL (4.70-6.10); White Blood Count 10.20 K/ul (4.8-10.8)
[2025-09-02 06:47] LABS: Anion Gap 5.0 (3-11); Blood Urea Nitrogen 22.0 mg/dl (6-23); Calcium 8.9 mg/dl (8.6-10.3); Carbon Dioxide 32.0 mmol/L (21-32); Chloride 100.0 mmol/L (98-107); Creatinine Clr Calc Pharmacy 52.3 ml/min; Glucose 143.0 mg/dl (70-99(Fasting)); Potassium 4.8 mmol/L (3.5-5.1); Sodium 137.0 mmol/L (136-145)
--- NOTE | 2025-09-02 11:11 | Orthopedic Progress Note ---
Date of Service September 02, 2025 Assessment & Plan (1) S/P lumbar laminectomy: * Continue Current Treatment * S/p lumbar laminectomy * Maintain drain, anticipate removal tomorrow as output decreases * Continue antibiotics per ID recommendations * Weight bearing status: Activity as tolerated, brace optional * Encouraged time out of bed. * Daily treatment: Physical Therapy/ Occupational Therapy per protocol * Pain control * Continue to monitor for ABLA * DVT prophylaxis, ok to resume from ortho standpoint * Disposition: TBD * Office/hospital f/u 2 weeks for progress check and staple/suture removal * Remainder care per primary team Subjective . Active Problems: S/p lumbar laminectomy POD 2 85y/o male s/p lumbar laminectomy. Doing well overall, pain managed and improved function. Drain intact, 40 cc over 24-hour. Denies fever/chills, chest pain/SOB, nausea/vomiting. Otherwise no complaints. Review of Systems All systems reviewed & are unremarkable except as noted in HPI & below. Physical Exam . * General: Alert and oriented, no acute distress * Constitutional: well-developed, well-nourished. * Respiratory: Normal respiratory effort, no distress * Gastrointestinal: No tenderness to palpation, no rigidity or guarding. * Skin: No rash or lesion. * Neurologic: Grossly normal * Musculoskeletal: Surgical dressing CDI. Lumbar spine region without obvious deformity or overlying skin changes. Drain intact. Minimal tenderness of surgical region, otherwise no tenderness b/l buttock or LE. Lumbar flexion/extension and rotation ROM with minimal pain. AROM b/l hip flexion, knee flexion/extension, ankle flexion/extension intact. Sensation intact plantar/dorsal foot. Brisk capillary refill. Results & Data Results & Data Laboratory Results . Diagnostic Findings . PG Care Time/CCT Total # of Minutes Spent Total Time Spent with Patient: Total time spent is greater than 50% in coordination of care (as documented) at patient's floor/unit and/or counseling patient: Coding Level of Care Code 25097 Post Operative Follow-Up Diagnoses S/P lumbar laminectomy Z98.890
--- NOTE | 2025-09-02 13:49 | Hospitalist Progress Note ---
"Date of Service September 02, 2025 Assessment & Plan (1) 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: (2) MSSA bacteremia: (3) Lumbar discitis: (4) Atrial flutter: (5) Hypertension: (6) Hyperlipidemia: (7) Diabetes mellitus, type 2: Plan 84-year-old male T2DM with prior ulcers and nephropathy, HTN, HLD, A-flutter on Eliquis, psoriatic arthritis, BPH, elevated PSA, urinary incontinence, venous insufficiency, chronic anemia, TAYLOR, postlaminectomy syndrome, and cervical dystonia presenting for low back pain that has worsened starting the day [employer]. His evaluation reveals mild leukocytosis of 13, mild anemia with H&H 12.5/39.5. ESR 67, still pending CRP results. Procalcitonin is normal. CTAP is without acute findings. His L-spine CT does reveal subtle inflammatory changes of the soft tissues in the anterior L2-L3 interspace. Admission for intractable back pain, pending MRI to rule out discitis. ##MSSA bacteremia -ID on consult -08/27 BCx x2: Staph aureus in 2/2 sets (3/4 bottles), BCID + Staph aureus and neg for MRSA (c/w MSSA) -08/28 BCx x2: gram + cocci -BCx from 08/29 remain with no growth to date -08/31 lower back culture with prelim staph -afebrile, WBC trends stabilizing, CRP trending down -ID recs with continuance of cefazolin 2g IV q8h (START ON 08/31/25, STOP on 10/11/25), can consider cefazolin 6g IV daily continuous infusion if desired by patient and for d/c purposes -Anticipate at least an 8-week course of IV abx for MSSA bacteremia and spinal infection, and repeat L-spine MRI prior to EOT -TTE with no evidence of a mass or vegetation, normal mitral valve anatomy -ANA not pursued at this time as Bcx from 08/29 remain NGTD -MRI lumbar degenerative changes with lumbar disc herniations, prevertebral soft tissue edema with fluid collection L2-L3, L paraspinal muscle edema L3/L4, abnormal signal intensity with enhancement end plate L3-L4, ? infective/inflammatory, no bone marrow edema -C-spine MRI without epidural hematoma/abscess, abnormal cord signal, discitis/osteo -Right toe x-ray secondary to wound to right great toe with no underlying osteo -Hx of previous right shoulder TSA, right shoulder X-ray (questionable fracture deformity right shoulder arthroplasty screw), consulted Dr. Valentine, seen by PA on 08/30/25 with no clinical evidence of PJI of right shoulder, follow up with ortho when back on service 09/03/25 for follow up -underwent laminectomy for excision or evacuation of intraspinal lesion other than neoplasm, extradural; lumbar L3-5 (lumbar epidural abscess) with Dr. Hensley 08/31/25 #Intractable back pain|Discitis|s/p laminectomy for excision and evacuation of intraspinal lesion other than neoplasm, extradural; lumbar L3-L5 (lumbar epidural abscess) Back pain starting 1 day [employer]; prior history of psoriatic arthritis and postlaminectomy syndrome, was following with pain management for such, ~ 3 months receives injections in C spine. Did have a fall approximately 2 weeks ago and was seen by chiropractor, worsening back pain that had initially improved. W/o worse numbness/tingling (h/o neuropathy), saddle anesthesia, or incontinence of bowel or bladder (does have urinary incontinence at baseline). No infectious symptoms. -CTAP unchanged mild AAA, bilateral renal calculi and L renal cyst -L-spine CT does reveal subtle inflammatory changes of the soft tissues in the anterior L2-L3 interspace. 08/28 L-spine MRI showing prevertebral soft tissue edema with mild fluid collection at L2-L3, paraspinal muscle edema at L3-L4, abnormal signal with enhancement along L paraspinal space to L epidural space, mild enhancement of endplate seen along L3-L4 c/f infection. He was started on vancomycin and cefepime. Ortho spine was consulted, recommended TLSO and back restrictions. IR felt that pt with phlegmon/edema. At this time, recommending empiric abx treatment. 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 infective/inflammatory, no bone marrow edema -underwent laminectomy for excision or evacuation of intraspinal lesion other than neoplasm, extradural; lumbar L3-5 (lumbar epidural abscess) with Dr. Hensley 08/31/25, OR findings of inflammatory-appearing tissue but no obvious purulent fluid collection. -Fall precautions -Heating pad prn -Acetaminophen prn fever/pain, morphine moderate/severe pain, oxycodone prn -Thoracic spine x-ray for complaints of tenderness to palpation s/p fall two weeks ago with no findings -PT/OT consulted ##UTI? -denies urinary symptoms of dysuria, fever, flank pain, foul-smelling urine -UA with 1+ leuks, UC with enterococcus faecalis 80,000, will repeat as possible contamination #T2DM, DMT2, at home regimen includes metformin -Glucose on admission 190; Most recent A1C 05/2025 @ 5.1% -Hold metformin -SSI with target BSG range 110-140mg/dL, CF 30, carb ratio 10 -BSG ACHS -Adjust regimen as needed #A-flutter -Amiodarone, Eliquis resumed 09/01 evening, metoprolol #HTN -Amlodipine, furosemide, losartan #BPH/Urinary incontinence -Alfuzosin, finasteride, vibegron #Depression -Duloxetine #HLD -Simvastatin #GERD -Pantoprazole Dispo: Admit, med/sx, plan for rehab upon discharge possible early next week VTE prophylaxis: HERMILO Nunezs post op Admission and Anticipated Discharge Date Admission Date: August 27, 2025 Supervising Physician Co-Signing Physician Notes I did not see or examine the patient. I verified all galindo points and agree with CRYSTAL Jennings with the following exceptions and/or additions: None Subjective Reports he has some localized lower back discomfort where his incisional site is. Did not work with PT today as he reported feeling tired and weak. PT to attempt working with patient again later this afternoon. He denies weakness of extremities, loss of sensation in bilateral legs, or loss of bowel/bladder dysfunction. Review of Systems Review of Systems: All systems reviewed & are unremarkable except as noted in Subjective Physical Exam Physical Exam: GENERAL APPEARANCE: A&O. Sitting comfortably in bed. NAD. SKIN: Normal color without rashes or lesions. Normal turgor. HEENT: Head AT/NC. Buccal mucosa is moist and pink. NECK: No jugular venous distention. No thyroid enlargement. There is no lymphadenopathy. HEART: RRR without m/g/r LUNGS: Normal inspiratory effort. CTA without w/r/r ABDOMEN: No guarding or rigidity. Normoactive BS in all four quadrants. Abdomen soft and NT. MSK: No bony gross/deformities throughout. ROM intact. 4/5 MS to bilateral lower ext. +dorsiflexion/plantar flexion of bilateral feet. Sensation intact to BL lower ext./feet. Dressing present to lower back. BOOGIE drain present draining small amounts of bloody drainage. EXTREMITIES: No edema, No peripheral cyanosis. Neuro: CN 2-12 grossly intact. No focal neuro deficits PSYCHIATRIC: Normal affect. Eye contact is good. Speech is normal rate and content. Responses are appropriate. Results & Data Results & Data Vital Signs (Past 12 Hours) Vital Signs Temp Pulse Resp BP Pulse Ox O2 Del Method 09/02/25 11:16 Room Air 09/02/25 07:14 36.6 C 76 16 138/65 93 Room Air Laboratory Results Labs reviewed: CBC, BMP, CRP PG Care Time/CCT Total # of Minutes Spent Total Time Spent with Patient: Total time spent is greater than 50% in coordination of care (as documented) at patient's floor/unit and/or counseling patient: Coding Level of Care Code 44231 SUB INP/OBS CARE 3/50MIN Diagnoses 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 G06.1 MSSA bacteremia R78.81; B95.61 Lumbar discitis M46.46 Atrial flutter, unspecified type I48.92 Atrial flutter type: unspecified Primary hypertension I10 Hypertension type: primary hypertension Hyperlipidemia, unspecified hyperlipidemia type E78.5 Hyperlipidemia type: unspecified Diabetes mellitus, type 2 E11.9 (4) Atrial flutter Atrial flutter type: unspecified Qualified Code(s): I48.92 - Unspecified atrial flutter (5) Hypertension Hypertension type: primary hypertension Qualified Code(s): I10 - Essential (primary) hypertension (6) Hyperlipidemia Hyperlipidemia type: unspecified Qualified Code(s): E78.5 - Hyperlipidemia, unspecified"
[2025-09-02 16:17] LABS: Appearance Urine Clear (Clear); Bacteria Urine Automated None Seen (None Seen); Cast Urine Automated 0-2 /lpf (0-2); Epithelial Cell Urine Auto 0-2 /hpf (0-2); Glucose Urine UA Negative (Negative); WBC Urine Automated 0-5 /hpf (0-5)
[2025-09-03 07:09] LABS: Hematocrit (blood only) 33.4 % (42.0-52.0); Hemoglobin 10.3 g/dl (14.0-18.0); Immature Granulocytes # (auto) 0.20 K/uL (0.01-0.20); Immature Granulocytes % (auto) 2.1 %; Mean Corpuscular Hemoglobin 26.0 pg (25.0-34.0); Mean Corpuscular Volume 84.3 fL (80.0-100.0); Platelet Count 285 K/uL (130-400); RDW Standard Deviation 46.5 fL (36.4-46.3); Red Blood Count 3.96 M/uL (4.70-6.10); White Blood Count 9.44 K/ul (4.8-10.8)
[2025-09-03 07:39] LABS: Anion Gap 4.0 (3-11); Blood Urea Nitrogen 18.0 mg/dl (6-23); Calcium 9.0 mg/dl (8.6-10.3); Carbon Dioxide 35.0 mmol/L (21-32); Chloride 96.0 mmol/L (98-107); Creatinine Clr Calc Pharmacy 61.8 ml/min; Glucose 116.0 mg/dl (70-99(Fasting)); Potassium 4.7 mmol/L (3.5-5.1); Sodium 135.0 mmol/L (136-145)
--- NOTE | 2025-09-03 08:58 | Hospitalist Progress Note ---
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 His evaluation reveals mild leukocytosis of 13, mild anemia with H&H 12.5/39.5. ESR 67, still pending CRP results. Procalcitonin is normal. CTAP is without acute findings. His L-spine CT does reveal subtle inflammatory changes of the soft tissues in the anterior L2-L3 interspace. Admission for intractable back pain, pending MRI to rule out discitis. #MSSA bacteremia 08/27 BCx x2: Staph aureus in 2/2 sets (3/4 bottles), BCID + Staph aureus and neg for MRSA (c/w MSSA) 08/28 BCx x2: gram + cocci 08/29 BCx remains with NGTD 08/31 lower back wound culture grew staph aureus (MSSA) as well as cutibacterium acnes Right toe x-ray secondary to wound to right great toe with no underlying osteo ID consult appreciated Cefazolin 2g IV q8h (START ON 08/31/25, STOP on 10/11/25), can consider cefazolin 6g IV daily continuous infusion if desired by patient and for d/c purposes Anticipate at least an 8-week course of IV abx for MSSA bacteremia and spinal infection, and repeat L-spine MRI prior to EOT TTE with no evidence of a mass or vegetation, normal mitral valve anatomy Note: ANA not pursued at this time as Bcx from 08/29 remain NGTD #AMS | dysphagia| ?Aspiration pneumonitis Patient began to exhibit altered mental status difficulty swallowing on the morning of 09/03 Unclear etiology: aspiration pneumonitis v. oxycodone use are leading at this time Aspiration precautions ordered Glucose WNL Given acute change in mentation (new changes in speech), there was concern for thrombolic event in the setting of MSSA bacteremia Repeat imaging of the lumbar, thoracic, and cervical spine revealed no acute finding Head CT revealed no acute abnormality Brain MRI read demonstrated a chronic right cerebellar infarct, but no acute finding CXR may exhibited early pneumonia in the right lower lung base Clinically, patient does endorse pleuritic CP and cough Difficulty with additional antibiotic coverage for potential aspiration pneumonia Unable to give Zosyn d/t patient's underlying PCN allergy Unable to give FQ d/t patient's mild AAA (noted on CT A/P on 08/27) IS, flutter valve AM procalcitonin and VBG ordered Given patient is hemodynamically stable, no hypoxia, no leukocytosis, and no reported fevers, will defer additional abx at this time Continue cefazolin for now, and will touch base with infectious disease re: additional abx; ?clindamycin Signed out to overnight team Speech therapy consult appreciated #Intractable back pain|Discitis|s/p laminectomy for excision and evacuation of intraspinal lesion other than neoplasm, extradural; lumbar L3-L5 (lumbar epidural abscess) On arrival: w/o worse numbness/tingling (h/o neuropathy), saddle anesthesia, or incontinence of bowel or bladder (does have urinary incontinence at baseline). No infectious symptoms. Orthopedics consult appreciated Underwent laminectomy for excision or evacuation of intraspinal lesion (L3-5) with Dr. Hensley on 08/31/25 Drain removed on 09/03 WBAT Fall precautions Heating pad PRN Acetaminophen prn fever/pain, morphine moderate/severe pain, oxycodone prn PT/OT consults appreciated Patient will require acute rehab upon discharge, and suspect based on his movement on 09/03 that he will need more PT/recovery time in the hospital Per [facility] has bed availability and can accommodate 6 to 8 weeks of IV antibiotics #UTI? Denies urinary symptoms of dysuria, fever, flank pain, or foul-smelling urine UA with 1+ leuks, UC with enterococcus faecalis 80,000, will repeat as possible contamination #T2DM Most recent A1C 05/2025 @ 5.1% Hold metformin SSI with target BSG range 110-140mg/dL, CF 30, carb ratio 10 BSG ACHS Adjust regimen as needed #A-flutter Continue amiodarone, metoprolol Eliquis resumed 09/01 evening #HTN Continue amlodipine, furosemide, losartan #BPH/Urinary incontinence Continue alfuzosin, finasteride, vibegron #Depression Continue duloxetine #HLD Continue simvastatin #GERD Continue pantoprazole Dispo: Continued stay on MedSurg; VSS on 09/03; plan for rehab upon discharge possible early next week VTE prophylaxis: Eliquis, SCDs post op Admission and Anticipated Discharge Date Admission Date: August 27, 2025 Supervising Physician Co-Signing Physician Notes I did not see or examine the patient. I verified all galindo points and agree with Mitchell Mistry PA-C with the following exceptions and/or additions: None Subjective Mr. Quiroz reports having a constant lower back pain this afternoon. While he has difficulty characterizing/rating it, he reports that his constant and does not radiate down his legs or up his spine. Additionally, he has some difficulty getting out of his words, that began this morning, and he has increased fatigue. His at bedside reports that this is an acute change in cognitive baseline, and he was not mumbling earlier in the week. No prior history of strokes or TIAs. ROS: Patient endorses word finding difficulty, increased fatigue, cough, pleuritic CP, and constant lower back pain. Patient denies chest pain at rest, SOB, abdominal pain, N/V/D, or numbness t ingling in arms or legs. Review of Systems Review of Systems: See HPI above Physical Exam Physical Exam: General: no acute distress; at bedside; non-toxic appearing; cooperative; SpO2 91% on RA HEENT: normocephalic, atraumatic; PERRLA; vision and hearing intact; patient demonstrates ability to smile, frown, and lift eyebrows without unilateral deficits; patient demonstrates very to protrude and wiggle tongue bilaterally Neck: supple; trachea midline Skin: warm, dry without signs of tenting; no cyanosis; no rashes, bruising, lesions, or erythema noted CV: chest wall NTP; RRR; S1/S2 normal; no murmurs/rubs/gallops; pulses intact and symmetric at radial, DP, and PT Lungs: no acute respiratory distress; symmetrical chest wall expansion; clear breath sounds across all lung stafford w/o adventitious sounds; no wheezing ABD: Soft, NTP; BS present; no rebound/guarding; no distention Back: Patient winces, and grimaces with movement; drain intact without evidence of erythema, or signs of infection MSK: no tics or fasciculations; no edema noted in the LEs b/l, nonerythematous; patient demonstrates ability to wiggle toes bilaterally; 5/5 corrugator strength bilaterally Neuro: A&Ox3; however, patient exhibits a flat affect and is slow to respond to questioning; mumbled speech; no facial droop appreciated; patient reports sensation is intact and symmetric in the lower extremities bilaterally assessed via light touch Results & Data Results & Data Vital Signs (Past 12 Hours) Vital Signs Temp Pulse Resp BP Pulse Ox O2 Del Method 09/03/25 07:35 36.7 C 65 16 126/68 91 Room Air 09/02/25 21:45 37.4 C 64 16 120/61 93 Room Air PG Care Time/CCT Total # of Minutes Spent Total Time Spent with Patient: Total time spent is greater than 50% in coordination of care (as documented) at patient's floor/unit and/or counseling patient: Coding [place] [address] SUB INP/OBS CARE 3/50MIN Patient Type Established Medical Decision Making High Complexity Diagnoses 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 G06.1 MSSA bacteremia R78.81; B95.61 Lumbar discitis M46.46 Atrial flutter, unspecified type I48.92 Atrial flutter type: unspecified Primary hypertension I10 Hypertension type: primary hypertension Hyperlipidemia, unspecified hyperlipidemia type E78.5 Hyperlipidemia type: unspecified Diabetes mellitus, type 2 E11.9 (4) Atrial flutter Atrial flutter type: unspecified Qualified Code(s): I48.92 - Unspecified atrial flutter (5) Hypertension Hypertension type: primary hypertension Qualified Code(s): I10 - Essential (primary) hypertension (6) Hyperlipidemia Hyperlipidemia type: unspecified Qualified Code(s): E78.5 - Hyperlipidemia, unspecified"
--- NOTE | 2025-09-03 09:32 | Orthopedic Progress Note ---
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 Does not report any leg pain today, moves all extremities however his mental status is concerning on examination today as it is quite different than he has been over the last few days. I have notified the hospitalist service for further workup of his confusion and let hargy. I will order repeat MRIs of the cervical thoracic and lumbar MRI given his prolonged course of bacteremia here, he is now status post lumbar decompression and on IV antibiotics so unlikely that he would develop new compression however given hardware in the cervical spine and history of surgery in the past we will repeat all imaging to make sure there is no other site of infection throughout the spine. Subjective Patient seen this morning, and is quite confused on examination. Holding pills in his mouth and reporting difficulty swallowing. Is difficult to understand his answers to questions yesterday, he reports that his whole body feels stiff. Able to move all extremities appropriately however difficult to maintain his attention. Concern for cognitive decline from his baseline status and status over the weekend. Does not look like he has been moving much over the weekend. Review of Systems All systems reviewed & are unremarkable except as noted in HPI & below. Physical Exam Patient appears quite confused, difficulty swallowing pills and liquids, not answering questions appropriately Appears to move all extremities however difficulty following commands. Muscle strength difficult to assess due to poor effort however appears to fire all muscles Results & Data Results & Data Laboratory Results . Diagnostic Findings . 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
--- NOTE | 2025-09-03 10:03 | XRay Report ---
XR chest 1V portable CLINICAL HISTORY: altered mental state COMPARISON STUDY: 04/26/2025 FINDINGS: Stable cardiomegaly without pulmonary vascular congestion. Inspiration is shallow. There is interval stranding opacity at the right base. No other consolidation or pleural effusion. No pneumot horax. IMPRESSION: Atelectasis versus early pneumonia right lung base. ACT 112: Negative or not required by law. Electronically signed by: Johan Bowden M.D. 09/03/2025 10:02 AM
--- NOTE | 2025-09-03 10:08 | CT Scan Report ---
CT head/brain wo con CLINICAL HISTORY: 85 years-old Male with Altered mental state. Acutely altered mental status TECHNIQUE: Multiple axial CT images of the head were obtained without contrast. A dose lowering tech nique was utilized adhering to the principles of ALARA. CT DOSE: 625.8 mGy.cm COMPARISON: None available FINDINGS: No acute intracranial hemorrhage, midline shift, intracranial mass, hydrocephalus, territorial ischem ia or abnormal extra-axial collection. Involutional changes with white matter hypodensities suggestiv e of chronic microvascular ischemic disease. Chronic-appearing right cerebellar lacunar infarct. The calvarium is intact. Prior bilateral lens repair. The paranasal sinuses, mastoid air cells, and m iddle ear cavities are clear. IMPRESSION: No acute intracranial abnormality identified. ACT 112: Negative or not required by law. The above report was generated using voice recognition software. It may contain grammatical, syntax o r spelling errors. Electronically signed by: Graeme Bonilla M.D. 09/03/2025 10:06 AM
[2025-09-03] MEDS: GADOBUTROL 65ML VIAL IV ONE (12:57)
--- NOTE | 2025-09-03 14:14 | Magnetic Resonance Report ---
MRI OF THE THORACIC SPINE WITH AND WITHOUT CONTRAST CLINICAL HISTORY: global weakness, confusion bacteremia COMPARISON: Thoracic spine CT July 07, 2020. Thoracic spine radiographs July 29, 2025. TECHNIQUE: Utilizing a 1.5 Lara magnet and dedicated coil, multiplanar, multiecho imaging of the th oracic spine was performed before and after the intravenous administration of 8 cc. FINDINGS: Alignment of the thoracic spine is anatomic. Vertebral body heights are maintained. No acut e thoracic spine fractures are present. There is no suspicious marrow replacement within the thoracic spine. No abnormal enhancement within the thoracic canal is present. Thoracic cord signal and calibe r are normal. There is no intracanalicular mass or fluid collection. Paravertebral soft tissues are u nremarkable. There is moderate multilevel disc space narrowing. Anterior osteophytosis is better depi cted on prior CT. Old mild T12 compression fracture is unchanged since CT of July 07, 2020. No se jim central canal or neural foraminal stenosis is present. There are trace bilateral pleural effusio ns. IMPRESSION: 1. No acute process within the thoracic spine by MRI. No evidence for discitis/osteomyelitis. 2. No acute thoracic spine fractures. Old mild T12 compression fracture. 3. Moderate degenerative changes within the thoracic spine. No severe central canal and neural forami nal stenosis. No large disc herniations. ACT 112: Negative or not required by law. Electronically signed by: Pedro Pablo Bonds M.D. 09/03/2025 2:12 PM
--- NOTE | 2025-09-03 14:26 | Electrocardiogram Report ---
Test Reason : Blood Pressure : */* mmHG Vent. Rate : 64 BPM Atrial Rate : 64 BPM P-R Int : 206 ms QRS Dur : 100 ms QT Int : 428 ms P-R-T Axes : * -41 10 degrees QTcB Int : 441 ms Poor data quality, interpretation may be adversely affected Normal sinus rhythm Left axis deviation Cannot rule out Anterior infarct , age undetermined Abnormal ECG When compared with ECG of 23-May-2025 11:32, Nonspecific T wave abnormality no longer evident in Lateral leads Confirmed by Hema Cabezas ([id number]) on 09/03/2025 2:25:42 PM Referred By: REFERRED SELF Confirmed By: Hema Cabezas
--- NOTE | 2025-09-03 15:11 | Magnetic Resonance Report ---
MR lumbar spine wo/w con CLINICAL HISTORY: 85 years-old Male with global weakness, confusion bacteremia. COMPARISON: 08/28/2025 TECHNIQUE: Multiplanar, multi sequence MRI of the lumbar spine was performed with and without intrave nous contrast. FINDINGS: Postoperative changes of interval L3-L4 laminectomy. T1 and T2 hypointense 6 cm collection within the posterior operative bed contains a surgical drainage catheter and abuts the posterior epidural tissu es demonstrating expected peripheral enhancement. There is also postsurgical enhancement in the regio n of the L3-L4 and L4-L5 ligamentum flavum. No anterior epidural collections. There is trace fluid si gnal within the L3-L4 disc space without endplate erosions or paravertebral edema. No acute fracture, subluxation or endplate erosions. Distended urinary bladder. T12-L1: No central canal or neural foraminal stenosis. L1-L2: Small post renal disc bulge again noted with spondylitic spurring. Ligament flavum thickening with moderate to severe facet arthrosis. Unchanged mild central canal stenosis and mild left neural foraminal narrowing. The right neural foramen is patent. L2-L3: Posterior disc osteophyte complex. Ligamentum flavum thickening with severe facet arthrosis. Unchanged moderate to severe central canal stenosis with AP dimension of thecal sac measuring 6 mm. M ild right with severe left lateral recess narrowing. [id number]-[id number] bilateral neural foraminal sten osis. L3-L4: Trace fluid within this space. No endplate erosions. Circumferential disc osteophyte complex. Ligamentum flavum thickening with advanced facet arthrosis. There is persistent central canal stenos is which is moderate to severe. Severe narrowing of the lateral recesses. Moderate to severe bilatera l neural foraminal stenosis redemonstrated. L4-L5: Grade 1 anterolisthesis secondary to chronic facet arthropathy. Spondylotic spurring with pos terior annular disc bulge and disc uncovering. Ligamentum flavum thickening with advanced facet arthr osis. Severe central canal stenosis with AP dimension of the thecal sac measuring 4 mm. Severe narrow ing of the lateral recesses. Unchanged [id number] bilateral neural foraminal narrowing. L5-S1: Spondylotic spurring. Small posterior annular disc bulge with ligamentum thickening and moder ate facet arthrosis. No significant central canal or neural foraminal narrowing. IMPRESSION: 1. Status post L3-L4 laminectomy. There is a posterior postoperative fluid collection/hematoma with s urgical drainage catheter in place. 2. No definite evidence of acute discitis/osteomyelitis. 3. Trace fluid signal within the L3-L4 disc space is favored to be degenerative. 4. Central canal and neural foraminal narrowing as above. ACT 112: Negative or not required by law. The above report was generated using voice recognition software. It may contain grammatical, syntax o r spelling errors. Electronically signed by: Graeme Bonilla M.D. 09/03/2025 3:10 PM
[2025-09-03] MEDS: cefTRIAXone SODIUM 2,000 MG/50 ML BAG IV SCH (15:24)
--- NOTE | 2025-09-03 15:41 | Orthopedic Progress Note ---
Date of Service September 03, 2025 Assessment & Plan (1) S/P lumbar laminectomy: (2) 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: (3) Lumbar radiculopathy, acute: Plan 85-year-old male POD#3 s/p L3-5 lumbar laminectomy. This morning's report was that the patient was quite confused and seemed to be possibly cognitively declined compared to preoperative. He was worked up with MRIs of the cervical, thoracic, and lumbar spine due to the confusion and lethargy. He also underwent a CT scan of the head and MRI of the brain. Upon this afternoon's visit, the patient seemed to be more at his baseline, which the patient's , who was present at bedside, agreed with. Patient was able to follow exam commands relatively well. He did have some mild weakness to the left lower extremity compared to the right. Patient was hesitant at any attempt with assisting him up to the edge of bed for drain discontinuation and new dressing, as he felt it would be painful for him. He did have some seemingly mild pain with performing the transition from supine to sitting, but otherwise he was able to sit on the edge of bed with assistance for the entirety of the drain pull and dressing change. At this point, having gone over today's MRIs in detail, there is nothing on the updated imaging that is indicative of the need for further surgery. We will continue to monitor and observe the patient during his stay. Hopefully he can transition to sitting in the bedside chair with nursing or PT/OT tomorrow, and possibly even work on some assisted ambulation. Plan: 1. DVT prophylaxis w/ home dose of Eliquis 5 mg twice daily, as well as SCDs. 2. Continue PT/OT. WBAT. Again, hopefully he is able to make further progression tomorrow with sitting upright and becoming ambulatory. 3. Drain discontinued and new dressing placed today. Daily dressing changes and incision checks. May discontinue dressings altogether once there is no longer drainage. 4. Further instructions per the discharge provider instructions section. 5. Continue IV antibiotics per infectious disease. 6. Disposition - per case management, Lisa has bed availability and can accommodate to 6 to 8 weeks of IV antibiotics. Auth to be submitted once patient is deemed medically stable for discharge, which will be per primary team. Orthopedically, he does need some further inpatient PT/OT work before he is deemed appropriate for discharge. 7. F/u approximately 2 weeks postop w/ Dr. Hensley for first outpatient post-op visit with staple removal. Subjective Patient is POD# s/p L3-[address] Hensley on 08/31/2025. Patient says he does have pain, and that "my legs feel like light weights". He is sitting upright eating with his present at bedside. He has not been able to ambulate yet with therapy, but they did have him up to the edge of the bed earlier today. Report is that he became fatigued with sitting upright. Patient's bedside nurse did report that there seemed to be possibility of some lack of motivation. Review of Systems All systems reviewed & are unremarkable except as noted in HPI & below. Physical Exam GENERAL: Speech and cognition is intact, but he is mildly slow to respond to questions. Mood and affect is appropriate. Does not appear in acute distress. HEAD: Normocephalic; atraumatic. CHEST: Regular chest respiration and excursion. NEURO: Awake, alert, and oriented. BACK: IntraOp surgical dressing intact to lumbar spine with mild dried saturation. Drain intact. No evidence of erythema, drainage, or abnormal warmth. Upon drain removal, no active drainage from wound site. LOWER EXTREMITIES: Sensation intact to light touch of the bilateral L2-S1 dermatomes. Plantar/dorsiflexion intact bilaterally. NVI distally. R Hip flexion 4-/5; knee extension 4+/5; knee flexion 4+/5; ankle dorsiflexion 4+/5; ankle plantar flexion 4+/5; EHL 4+/5 L Hip flexion 4-/5; knee extension 5/5; knee flexion 5/5; ankle dorsiflexion 5/5; ankle plantar flexion 5/5; EHL 5/5 Results & Data Results & Data Laboratory Results Laboratory Results - last 24 hr 09/02/25 09/02/25 09/02/25 15:50 16:29 20:30 WBC RBC Hgb Hct MCV MCH MCHC RDW Std Deviation RDW Coeff of Caren Plt Count MPV Immature Gran % (Auto) Neut % (Auto) Lymph % (Auto) [place] % (Auto) Eos % (Auto) Baso % (Auto) Neut # (Auto) Lymph # (Auto) [place] # (Auto) Eos # (Auto) Baso # (Auto) Immature Gran # (Auto) Sodium Potassium Chloride Carbon Dioxide Anion Gap BUN Creatinine Est Cr Clr Drug Dosing eGFR BUN/Creatinine Ratio Glucose POC Glucose 143 H 184 H Calcium C-Reactive Protein Urine Color Yellow Urine Appearance Clear Urine pH 6.0 Ur Specific Boyce 1.013 Urine Protein Negative Urine Glucose (UA) Negative Urine Ketones Negative Urine Blood Trace H Urine Nitrite Negative Urine Bilirubin Negative Urine Urobilinogen Negative Ur Leukocyte Esterase Trace H Urine WBC (Auto) 0-5 Urine RBC (Auto) 3-5 H U Hyaline Cast (Auto) 0-2 U Epithel Cells (Auto) 0-2 Urine Bacteria (Auto) None Seen Urine Comment 09/03/25 09/03/25 09/03/25 06:18 07:42 11:25 WBC 9.44 RBC 3.96 L Hgb 10.3 L Hct 33.4 L MCV 84.3 MCH 26.0 MCHC 30.8 L RDW Std Deviation 46.5 H RDW Coeff of Caren 15.3 H Plt Count 285 MPV 10.3 Immature Gran % (Auto) 2.1 Neut % (Auto) 59.6 Lymph % (Auto) 21.6 [place] % (Auto) 13.3 Eos % (Auto) 2.9 Baso % (Auto) 0.5 Neut # (Auto) 5.62 Lymph # (Auto) 2.04 [place] # (Auto) 1.26 H Eos # (Auto) 0.27 Baso # (Auto) 0.05 Immature Gran # (Auto) 0.20 Sodium 135 L Potassium 4.7 Chloride 96 L Carbon Dioxide 35 H Anion Gap 4 BUN 18 Creatinine 0.83 Est Cr Clr Drug Dosing 61.8 eGFR 84.71 BUN/Creatinine Ratio 21.7 H Glucose 116 H POC Glucose 139 H 190 H Calcium 9.0 C-Reactive Protein 13.23 H Urine Color Urine Appearance Urine pH Ur Specific Boyce Urine Protein Urine Glucose (UA) Urine Ketones Urine Blood Urine Nitrite Urine Bilirubin Urine Urobilinogen Ur Leukocyte Esterase Urine WBC (Auto) Urine RBC (Auto) U Hyaline Cast (Auto) U Epithel Cells (Auto) Urine Bacteria (Auto) Urine Comment Diagnostic Findings Head CT 09/03/25 09:01 CT head/brain wo con CLINICAL HISTORY: 85 years-old Male with Altered mental state. Acutely altered mental status TECHNIQUE: Multiple axial CT images of the head were obtained without contrast. A dose lowering technique was utilized adhering to the principles of ALARA. CT DOSE: 625.8 mGy.cm COMPARISON: None available FINDINGS: No acute intracranial hemorrhage, midline shift, intracranial mass, hydrocephalus, territorial ischemia or abnormal extra-axial collection. Involutional changes with white matter hypodensities suggestive of chronic microvascular ischemic disease. Chronic-appearing right cerebellar lacunar infarct. The calvarium is intact. Prior bilateral lens repair. The paranasal sinuses, mastoid air cells, and middle ear cavities are clear. IMPRESSION: No acute intracranial abnormality identified. ACT 112: Negative or not required by law. The above report was generated using voice recognition software. It may contain grammatical, syntax or spelling errors. Electronically signed by: Graeme Bonilla M.D. 09/03/2025 10:06 AM Lumbar Spine MRI 09/03/25 09:11 MR lumbar spine wo/w con CLINICAL HISTORY: 85 years-old Male with global weakness, confusion bacteremia. COMPARISON: 08/28/2025 TECHNIQUE: Multiplanar, multi sequence MRI of the lumbar spine was performed with and without intravenous contrast. FINDINGS: Postoperative changes of interval L3-L4 laminectomy. T1 and T2 hypointense 6 cm collection within the posterior operative bed contains a surgical drainage catheter and abuts the posterior epidural tissues demonstrating expected peripheral enhancement. There is also postsurgical enhancement in the region of the L3-L4 and L4-L5 ligamentum flavum. No anterior epidural collections. There is trace fluid signal within the L3-L4 disc space without endplate erosions or paravertebral edema. No acute fracture, subluxation or endplate erosions. Distended urinary bladder. T12-L1: No central canal or neural foraminal stenosis. L1-L2: Small post renal disc bulge again noted with spondylitic spurring. Ligament flavum thickening with moderate to severe facet arthrosis. Unchanged mild central canal stenosis and mild left neural foraminal narrowing. The right neural foramen is patent. L2-L3: Posterior disc osteophyte complex. Ligamentum flavum thickening with severe facet arthrosis. Unchanged moderate to severe central canal stenosis with AP dimension of thecal sac measuring 6 mm. Mild right with severe left lateral recess narrowing. [id number] bilateral neural foraminal stenosis. L3-L4: Trace fluid within this space. No endplate erosions. Circumferential disc osteophyte complex. Ligamentum flavum thickening with advanced facet arthrosis. There is persistent central canal stenosis which is moderate to severe. Severe narrowing of the lateral recesses. Moderate to severe bilateral neural foraminal stenosis redemonstrated. L4-L5: Grade 1 anterolisthesis secondary to chronic facet arthropathy. Spondylotic spurring with posterior annular disc bulge and disc uncovering. Ligamentum flavum thickening with advanced facet arthrosis. Severe central canal stenosis with AP dimension of the thecal sac measuring 4 mm. Severe narrowing of the lateral recesses. Unchanged [id number] bilateral neural foraminal narrowing. L5-S1: Spondylotic spurring. Small posterior annular disc bulge with ligamentum thickening and moderate facet arthrosis. No significant central canal or neural foraminal narrowing. IMPRESSION: 1. Status post L3-L4 laminectomy. There is a posterior postoperative fluid collection/hematoma with surgical drainage catheter in place. 2. No definite evidence of acute discitis/osteomyelitis. 3. Trace fluid signal within the L3-L4 disc space is favored to be degenerative. 4. Central canal and neural foraminal narrowing as above. ACT 112: Negative or not required by law. The above report was generated using voice recognition software. It may contain grammatical, syntax or spelling errors. Electronically signed by: Graeme Bonilla M.D. 09/03/2025 3:10 PM Thoracic Spine MRI 09/03/25 09:11 MRI OF THE THORACIC SPINE WITH AND WITHOUT CONTRAST CLINICAL HISTORY: global weakness, confusion bacteremia COMPARISON: Thoracic spine CT July 07, 2020. Thoracic spine radiographs July 29, 2025. TECHNIQUE: Utilizing a 1.5 Lara magnet and dedicated coil, multiplanar, multiecho imaging of the thoracic spine was performed before and after the intravenous administration of 8 cc. FINDINGS: Alignment of the thoracic spine is anatomic. Vertebral body heights are maintained. No acute thoracic spine fractures are present. There is no suspicious marrow replacement within the thoracic spine. No abnormal enhancement within the thoracic canal is present. Thoracic cord signal and caliber are normal. There is no intracanalicular mass or fluid collection. Paravertebral soft tissues are unremarkable. There is moderate multilevel disc space narrowing. Anterior osteophytosis is better depicted on prior CT. Old mild T12 compression fracture is unchanged since CT of July 07, 2020. No severe central canal or neural foraminal stenosis is present. There are trace bilateral pleural effusions. IMPRESSION: 1. No acute process within the thoracic spine by MRI. No evidence for discitis/osteomyelitis. 2. No acute thoracic spine fractures. Old mild T12 compression fracture. 3. Moderate degenerative changes within the thoracic spine. No severe central canal and neural foraminal stenosis. No large disc herniations. ACT 112: Negative or not required by law. Electronically signed by: Pedro Pablo Bonds M.D. 09/03/2025 2:12 PM PG Care Time/CCT Total # of Minutes Spent Total Time Spent with Patient: Total time spent is greater than 50% in coordination of care (as documented) at patient's floor/unit and/or counseling patient: Coding Level of Care Code 26446 Post Operative Follow-Up Diagnoses S/P lumbar laminectomy Z98.890 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 G06.1 Lumbar radiculopathy, acute M54.16
--- NOTE | 2025-09-03 15:46 | Magnetic Resonance Report ---
MR brain wo/w con HISTORY: 85 years-old Male Altered mental state acutely altered mental status COMPARISON: Head CT 09/03/2025 TECHNIQUE: Multiplanar multisequence MRI of the brain was obtained with and without IV contrast. FINDINGS: No restricted diffusion to suggest an acute or subacute infarct. Midline structures are within normal limits. No acute intracranial hemorrhage, midline shift, abnormal extra-axial collection, hydrocepha marisabel or intra-axial mass. Involutional changes with mild to moderate scattered T2/FLAIR hyperintense f oci throughout the white matter. Chronic appearing right mid cerebellar lacunar infarct on image 6 se mary 5. No abnormal enhancement. Cerebral venous sinuses and major arterial flow voids appear patent. Prior bilateral repair. IMPRESSION: 1. No acute intracranial abnormality. No acute infarct. 2. Involutional changes with chronic microvascular ischemic disease. 3. Chronic right cerebellar lacunar infarct. 4. No abnormal enhancement. ACT 112: Negative or not required by law. The above report was generated using voice recognition software. It may contain grammatical, syntax o r spelling errors. Electronically signed by: Graeme Bonilla M.D. 09/03/2025 3:44 PM
--- NOTE | 2025-09-03 15:58 | Magnetic Resonance Report ---
MRI OF THE CERVICAL SPINE COMBO CLINICAL HISTORY: Generalized weakness. Change in mental status. Bacteremia. COMPARISON STUDY: Cervical spine MRI dated 08/28/2025 and 09/04/2020. CT of the cervical spine dated . TECHNIQUE: MRI of the cervical spine is performed utilizing various T1 and T2-weighted sequences in t he axial and sagittal planes. Contrast-enhanced images are acquired following the IV administration o f 8 cc of gadavist. The examination is degraded by motion artifact, as well as by susceptibility ama fact from multilevel spinal hardware. FINDINGS: Cervical spine: Vertebral body height and alignment are maintained throughout the cervical spine. The re is postsurgical change of laminectomy and posterior fusion seen at C4-C6. Interpedicular screws ar e present at all levels. There is partial bony fusion at C4-C5. Anterior osteophytes are seen through out. No destructive bony lesion is identified. The atlantodens articulation is maintained. The remain ing spinous processes appear intact. Intervertebral discs: There is fluid within the C4-C5 disc space with nonspecific enhancement. This i s similar in appearance to studies dated 08/28/2025 and 09/04/2020. No paravertebral edema is seen at this level. There is mild enhancement of trace fluid signal within the C5-C6 and C6-C7 disc spaces. Spinal cord and central canal: The cervical cord is normal in morphology and signal intensity. No abn ormal postcontrast enhancement is seen. There is no evidence of epidural fluid collection. C2-C3: Facet arthropathy is of no consequence. The central canal and neural foramen are patent. C3-C4: The central canal and neural foramen appear patent. C4-C5: The central canal and neural foramen appear patent. C5-C6: The central canal and neural foramen appear patent. C6-C7: A posterior disc osteophyte complex abuts the ventral cord. Uncovertebral and facet arthropath y causing mild right and minimal left neural foraminal narrowing. C7-T1: Unremarkable. Soft tissues: The prevertebral and paraspinous soft tissues are within normal limits. Brain parenchyma: The imaged brain parenchyma at the skull base is normal as visualized. IMPRESSION: 1. There is T2 signal with enhancement in the C4-C5 disc space, which has not significantly changed f rom 08/28/2025 and is also similar in appearance to the 2019 examination. There is no paravertebral e rhea at this level or associated endplate change. This is likely on a postoperative/degenerative basi s. Infection is considered much less likely. 2. Milder similar-appearing changes are noted at the C5-C6 and C6-C7 disc spaces, again with no assoc iated bony change or paravertebral edema. 3. Postsurgical change as above. 4. The cervical cord is normal in morphology and signal intensity. 5. No epidural fluid collection is seen. Dictated: 09/03/2025 2:27 PM Transcribed: 09/03/2025 2:51 PM Tavon [id number] [email or web address] Electronically signed by: Vitaly Roman M.D. 09/03/2025 3:57 PM
[2025-09-04 07:41] LABS: Base Excess VBG 9.3 mEq/L; HCO3 VBG 35 mmol/L; Oxygen Saturation VBG < 60.0 %; PCO2 VBG 53 mmHg (38-50); PO2 VBG 23 mmHg; pH VBG 7.43 (7.36-7.41)
[2025-09-04 07:48] LABS: Hematocrit (blood only) 32.9 % (42.0-52.0); Hemoglobin 10.8 g/dl (14.0-18.0); Immature Granulocytes # (auto) 0.21 K/uL (0.01-0.20); Immature Granulocytes % (auto) 2.1 %; Mean Corpuscular Hemoglobin 27.3 pg (25.0-34.0); Mean Corpuscular Volume 83.3 fL (80.0-100.0); Platelet Count 333 K/uL (130-400); RDW Standard Deviation 46.6 fL (36.4-46.3); Red Blood Count 3.95 M/uL (4.70-6.10); White Blood Count 9.77 K/ul (4.8-10.8)
[2025-09-04 08:03] LABS: Anion Gap 8.0 (3-11); Blood Urea Nitrogen 22.0 mg/dl (6-23); Calcium 9.3 mg/dl (8.6-10.3); Carbon Dioxide 33.0 mmol/L (21-32); Chloride 96.0 mmol/L (98-107); Creatinine Clr Calc Pharmacy 58.3 ml/min; Glucose 101.0 mg/dl (70-99(Fasting)); Potassium 4.4 mmol/L (3.5-5.1); Sodium 137.0 mmol/L (136-145)
--- NOTE | 2025-09-04 09:02 | Orthopedic Progress Note ---
Date of Service September 04, 2025 Assessment & Plan (1) S/P lumbar laminectomy: (2) 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: Plan Explained the imaging findings to the patient today, central canal is not deep pressed, no evidence of worsening abscess pain in the lumbar spine or any where all neural of the spine. He is on appropriate antibiotics, he no longer has radicular symptoms. It seems as if he is hesitant to participate with physical therapy as he is afraid his back. Pain will increase. He moves his legs to command in bed without any obvious fixed deficit, I feel his legs are likely getting weaker as he has now been in bed with only 1 or 2 sessions of physical therapy in the past week and I feel he has decreased effort with examination. Will continue to follow along, concern would be any further decompression would likely necessitate fusion of the spine and I would not like to do this in the setting of an infection. He does not have any radicular symptoms at this time, would continue to work on strengthening and conditioning. Subjective Patient seen and examined this morning. He is much more alert today, laying in bed awaiting breakfast. He reports that he sat up at the edge of his bed yesterday but was hesitant to try standing. He does state that when he moves his back hurts, he does not have any leg pain or change in sensation. He is moving his legs fine in bed but he says they feel heavy. No change in sensory from his baseline status. Review of Systems All systems reviewed & are unremarkable except as noted in HPI & below. Physical Exam Dressings clean dry and intact 4 out of 5 strength bilateral lower extremities diffusely in all myotomes Sensation is at baseline with his peripheral neuropathy to be severe in his feet Results & Data Results & Data Laboratory Results . Diagnostic Findings MRIs of the thoracic lumbar and cervical spine from yesterday were reviewed and interpreted personally. No sign of new abscess or infection anywhere else of the spine. He does have some residual stenosis at L3-4 and L4-5 mostly in the lateral recesses, no severe central canal stenosis which is now decompressed status post laminectomy with slight fluid buildup contributing to moderate canal stenosis improved from preoperative status. PG Care Time/CCT Total # of Minutes Spent Total Time Spent with Patient: Total time spent is greater than 50% in coordination of care (as documented) at patient's floor/unit and/or counseling patient: Coding Level of Care Code 99689 Post Operative Follow-Up Diagnoses S/P lumbar laminectomy Z98.890 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 G06.1
--- NOTE | 2025-09-04 17:40 | Hospitalist Progress Note ---
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 His evaluation reveals mild leukocytosis of 13, mild anemia with H&H 12.5/39.5. ESR 67, still pending CRP results. Procalcitonin is normal. CTAP is without acute findings. His L-spine CT does reveal subtle inflammatory changes of the soft tissues in the anterior L2-L3 interspace. Admission for intractable back pain, pending MRI to rule out discitis. #MSSA bacteremia 08/27 BCx x2: Staph aureus in 2/2 sets (3/4 bottles), BCID + Staph aureus and neg for MRSA (c/w MSSA) 08/28 BCx x2: gram + cocci 08/29 BCx remains with NGTD 08/31 lower back wound culture grew staph aureus (MSSA) as well as cutibacterium acnes Right toe x-ray secondary to wound to right great toe with no underlying osteo ID consult appreciated Cefazolin 2g IV q8h (START ON 08/31/25, STOP on 10/11/25), can consider cefazolin 6g IV daily continuous infusion if desired by patient and for d/c purposes Anticipate at least an 8-week course of IV abx for MSSA bacteremia and spinal infection, and repeat L-spine MRI prior to EOT TTE with no evidence of a mass or vegetation, normal mitral valve anatomy Note: ANA not pursued at this time as Bcx from 08/29 remain NGTD #AMS (resolved) | dysphagia | ?Aspiration pneumonitis Patient began to exhibit altered mental status difficulty swallowing on the m orning of 09/03 Given acute change in mentation (new changes in speech), there was concern for thrombolic event in the setting of MSSA bacteremia Repeat imaging of the lumbar, thoracic, and cervical spine revealed no acute finding Head CT revealed no acute abnormality Brain MRI read demonstrated a chronic right cerebellar infarct, but no acute finding CXR may exhibited early pneumonia in the right lower lung base Difficulty with additional antibiotic coverage for potential aspiration pneumonia Unable to give Zosyn d/t patient's underlying PCN allergy Unable to give FQ d/t patient's mild AAA (noted on CT A/P on 08/27) IS, flutter valve Repeat A.m. VBG and procalcitonin were WNL on 09/04 Given patient is hemodynamically stable, no hypoxia, no leukocytosis, and no reported fevers, will defer additional antibiotics at this time Unclear etiology: Well initially suspected aspiration pneumonitis, suspect that oxycodone could be more contributory Received IV morphine the evening of 09/02, as well as oxycodone the morning of 09/03 IV morphine discontinued Attempted wean off of p.o. oxycodone as tolerated Maintain aspiration precautions Speech therapy consult appreciated #Intractable back pain|Discitis|s/p laminectomy for excision and evacuation of intraspinal lesion other than neoplasm, extradural; lumbar L3-L5 (lumbar epidural abscess) On arrival: w/o worse numbness/tingling (h/o neuropathy), saddle anesthesia, or incontinence of bowel or bladder (does have urinary incontinence at baseline). No infectious symptoms. Orthopedics consult appreciated Underwent laminectomy for excision or evacuation of intraspinal lesion (L3-5) with Dr. Hensley on 08/31/25 Drain removed on 09/03 WBAT Fall precautions Heating pad PRN Acetaminophen prn fever/pain, morphine moderate/severe pain, oxycodone prn PT/OT consults appreciated Patient will require acute rehab upon discharge, and suspect based on his movement on 09/03 and 09/04 that he is becoming increasingly deconditioned in the hospital Per PT note on 09/04, acute rehab is still planned, patient is at maximum assist in almost all capacities Per , [facility] has bed availability and can accommodate 6 to 8 weeks of IV antibiotics #UTI? Denies urinary symptoms of dysuria, fever, flank pain, or foul-smelling urine UA with 1+ leuks, UC with enterococcus faecalis 80,000, will repeat as possible contamination #T2DM Most recent A1C 05/2025 @ 5.1% Hold metformin SSI with target BSG range 110-140mg/dL, CF 30, carb ratio 10 BSG ACHS Adjust regimen as needed #A-flutter Continue amiodarone, metoprolol Eliquis resumed 09/01 evening #HTN Continue amlodipine, furosemide, losartan #BPH/Urinary incontinence Continue alfuzosin, finasteride, vibegron #Depression Continue duloxetine #HLD Continue simvastatin #GERD Continue pantoprazole Dispo: Continued stay on MedSurg; AMS improving on 09/04; however, feel that he is having increased physical deconditioning and has likely been getting weaker while in the hospital VTE prophylaxis: Mayra, SCDs post op Admission and Anticipated Discharge Date Admission Date: August 27, 2025 Supervising Physician Co-Signing Physician Notes I did not see or examine the patient. I verified all galindo points and agree with Mitchell Mistry PA-C with the following exceptions and/or additions: None Subjective Mr. Quiroz reports he is having 8.5 out of 10 pain in the lower back at this time. He reports his word finding difficulty is improved from yesterday, does not have difficulty swallowing pills. However, he has difficulty lifting his legs and getting up on the side of the bed. He did report that he was able to get out of bed and stand with a walker with physical therapy earlier today. ROS: Patient endorses generalized fatigue, lower extremity weakness, and constant lower back pain. Patient denies word finding difficulty (improving), chest pain at rest, SOB, cough, pleuritic CP, abdominal pain, N/V/D, or numbness tingling in arms or legs . Review of Systems Review of Systems: See HPI above Physical Exam Physical Exam: General: Mild distress secondary to lower back pain; non-toxic appearing; cooperative; SpO2 93% on RA HEENT: normocephalic, atraumatic; PERRLA; vision and hearing intact Neck: supple; trachea midline Skin: warm, dry without signs of tenting; no cyanosis; no rashes, bruising, lesions, or erythema noted CV: chest wall NTP; RRR; S1/S2 normal; no murmurs/rubs/gallops; pulses intact and symmetric at radial, DP, and PT Lungs: no acute respiratory distress; symmetrical chest wall expansion; clear breath sounds across all lung stafford w/o adventitious sounds; no wheezing ABD: Soft, NTP; BS present; no rebound/guarding; no distention Back: Patient winces, and grimaces with movement; drain intact without evidence of erythema, or signs of infection MSK: no tics or fasciculations; no edema noted in the LEs b/l, nonerythematous; patient demonstrates ability to wiggle toes bilaterally; 5/5 tube roller strength bilaterally; 1/5 strength in the lower extremities bilaterally when lifting leg from the bed or lying supine Neuro: A&Ox3; flat affect; clear speech; no facial droop appreciated; patient reports sensation is intact and symmetric in the lower extremities bilaterally assessed via light touch Results & Data Results & Data Vital Signs (Past 12 Hours) Vital Signs Temp Pulse Resp BP Pulse Ox O2 Del Method 09/04/25 14:59 36.5 C 62 18 112/65 93 Room Air 09/04/25 07:40 Room Air 09/04/25 07:21 36.6 C 68 18 150/75 H 93 Room Air PG Care Time/CCT Total # of Minutes Spent Total Time Spent with Patient: Total time spent is greater than 50% in coordination of care (as documented) at patient's floor/unit and/or counseling patient: Coding [place] [address] SUB INP/OBS CARE 3/50MIN Patient Type Established Medical Decision Making High Complexity Diagnoses 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 G06.1 MSSA bacteremia R78.81; B95.61 Lumbar discitis M46.46 Atrial flutter, unspecified type I48.92 Atrial flutter type: unspecified Primary hypertension I10 Hypertension type: primary hypertension Hyperlipidemia, unspecified hyperlipidemia type E78.5 Hyperlipidemia type: unspecified Diabetes mellitus, type 2 E11.9 (4) Atrial flutter Atrial flutter type: unspecified Qualified Code(s): I48.92 - Unspecified atrial flutter (5) Hypertension Hypertension type: primary hypertension Qualified Code(s): I10 - Essential (primary) hypertension (6) Hyperlipidemia Hyperlipidemia type: unspecified Qualified Code(s): E78.5 - Hyperlipidemia, unspecified"
[2025-09-04 23:42] VITALS: RESP 16
--- NOTE | 2025-09-05 09:53 | Orthopedic Progress Note ---
Date of Service September 05, 2025 Assessment & Plan (1) S/P lumbar laminectomy: * Continue Current Treatment * S/p lumbar decompression, I&D * Lethargic/confused this morning which appears to be a pattern over the past few days. 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 Active Problems: S/p lumbar laminectomy POD 5 85y/o male s/p lumbar laminectomy, I&D. At time of exam this morning patient was quite lethargic and disoriented. Follows all commands without limitation however needed persistent prompting. Workup 09/03 of cervical/thoracic/lumbar spine MRI, head CT, brain MRI without acute abnormality. Review of Systems All systems reviewed & are unremarkable except as noted in HPI & below. Physical Exam . * General: Alert and oriented, no acute distress * Constitutional: well-developed, well-nourished. * Respiratory: Normal respiratory effort, no distress * Gastrointestinal: No tenderness to palpation, no rigidity or guarding. * Skin: No rash or lesion. * Neurologic: Grossly normal * Musculoskeletal: Surgical dressing CDI. Lumbar spine region without obvious deformity or overlying skin changes. Minimal tenderness of surgical region, otherwise no tenderness b/l buttock or LE. Lumbar flexion/extension and rotation ROM with minimal pain. AROM b/l hip flexion, knee flexion/extension, ankle flexion/extension intact. Sensation intact plantar/dorsal foot. Brisk capillary refill. Results & Data Results & Data Laboratory Results . Diagnostic Findings . 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
--- NOTE | 2025-09-05 11:13 | Hospitalist Progress Note ---
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 His evaluation reveals mild leukocytosis of 13, mild anemia with H&H 12.5/39.5. ESR 67, still pending CRP results. Procalcitonin is normal. CTAP is without acute findings. His L-spine CT does reveal subtle inflammatory changes of the soft tissues in the anterior L2-L3 interspace. Admission for intractable back pain, pending MRI to rule out discitis. #MSSA bacteremia 08/27 BCx x2: Staph aureus in 2/2 sets (3/4 bottles), BCID + Staph aureus and neg for MRSA (c/w MSSA) 08/28 BCx x2: gram + cocci 08/29 BCx remains with NGTD 08/31 lower back wound culture grew staph aureus (MSSA) as well as cutibacterium acnes Right toe x-ray secondary to wound to right great toe with no underlying osteo ID consult appreciated Cefazolin 2g IV q8h (START ON 08/31/25, STOP on 10/11/25), can consider cefazolin 6g IV daily continuous infusion if desired by patient and for d/c purposes Anticipate at least an 8-week course of IV abx for MSSA bacteremia and spinal infection, and repeat L-spine MRI prior to EOT TTE with no evidence of a mass or vegetation, normal mitral valve anatomy Note: ANA not pursued at this time as Bcx from 08/29 remain NGTD #AMS | dysphagia | adverse reaction to opioid medications Patient began to exhibit altered mental status, garbled speech, & difficulty swallowing on the morning of 09/03 Given acute change in mentation (new changes in speech), there was concern for thrombolic event in the setting of MSSA bacteremia Repeat imaging of the lumbar, thoracic, and cervical spine revealed no acute finding Head CT revealed no acute abnormality Brain MRI read demonstrated a chronic right cerebellar infarct, but no acute finding Given negative workup, suspected to be a side effect from opioid use while in the hospital Nursing staff reported lethargy, carpal speech, and potential hallucinations on the morning of 09/05 IV Dilaudid and p.o. oxycodone have subsequently been discontinued New pain regimen as follows: Scheduled acetaminophen 500 mg p.o. TID Baclofen 10 mg p.o. BID Lidocaine patch QAM Heating pad PRN Tizanadine PRN [place] 5-325 q6h PRN for breakthrough pain Speech therapy consult appreciated Given difficulty with movement/back pain, VFSS not recommended at this time Maintain diet as before Maintain aspiration cautions #Intractable back pain|Discitis|s/p laminectomy for excision and evacuation of intraspinal lesion other than neoplasm, extradural; lumbar L3-L5 (lumbar epidural abscess) On arrival: w/o worse numbness/tingling (h/o neuropathy), saddle anesthesia, or incontinence of bowel or bladder (does have urinary incontinence at baseline). No infectious symptoms. Orthopedics consult appreciated Underwent laminectomy for excision or evacuation of intraspinal lesion (L3-5) with Dr. Hensley on 08/31/25 Drain removed on 09/03 WBAT Fall precautions Heating pad PRN Acetaminophen PRN PT/OT consults appreciated Patient will require acute rehab upon discharge, and suspect based on his movement on 09/03 and 09/04 that he is becoming increasingly deconditioned in the hospital Per PT note on 09/04, acute rehab is still planned, patient is at maximum assist in almost all capacities Per , [facility] has bed availability and can accommodate 6 to 8 weeks of IV antibiotics #UTI? Denies urinary symptoms of dysuria, fever, flank pain, or foul-smelling urine UA with 1+ leuks, UC with enterococcus faecalis 80,000, will repeat as possible contamination #T2DM Most recent A1C 05/2025 @ 5.1% Hold metformin SSI with target BSG range 110-140mg/dL, CF 30, carb ratio 10 BSG ACHS Adjust regimen as needed #A-flutter Continue amiodarone, metoprolol Eliquis resumed 09/01 evening #HTN Continue amlodipine, furosemide, losartan #BPH/Urinary incontinence Continue alfuzosin, finasteride, vibegron #Depression Continue duloxetine #HLD Continue simvastatin #GERD Continue pantoprazole Dispo: Continued stay on MedSurg; setbacks on 09/05 including altered mental status, hallucinations, and lethargy thought to be secondary to an adverse reaction to opioids VTE prophylaxis: Yoly Nunez post op Admission and Anticipated Discharge Date Admission Date: August 27, 2025 Subjective Patient first examined around 1000 this morning. He exhibits garbled speech, and is slow to respond to questioning. Nursing staff bedside report he did not eat breakfast this morning as he refused. He also reportedly was hallucinating this morning, and reported he saw his " walking up the steps". While he was able to swallow pills this morning, he has difficulty sticking out his tongue at this time. Poor historian at this time. Unable to obtain ROS. Addendum at 1400: Improvement in patient's overall disposition. He is A&O x 3. He is able to follow commands. While he is more awake and talkative, he still exhibits garbled speech. He reports his pain is an 8 out of 10, and he is unsure if the lidocaine patch has been helping. Patient reportedly had a bowel movement in bed today. Review of Systems Review of Systems: See HPI above Physical Exam Physical Exam: General: No acute distress; lethargic; non-toxic appearing; cooperative; SpO2 95% on room air assessed via pulse ox at bedside HEENT: normocephalic, atraumatic; pinpoint pupils; PERRLA; vision and hearing appear intact; patient has difficulty following commands such as protrude and wiggle tongue Neck: supple; trachea midline Skin: warm, dry without signs of tenting; no cyanosis; no rashes, bruising, lesions, or erythema noted CV: chest wall NTP; RRR; S1/S2 normal; no murmurs/rubs/gallops; pulses intact and symmetric at radial, DP, and PT Lungs: no acute respiratory distress; symmetrical chest wall expansion; clear breath sounds across all lung stafford w/o adventitious sounds; no wheezing ABD: Soft, NTP; BS present; no rebound/guarding; no distention Back: Patient winces, and grimaces with movement; drain intact without evidence of erythema, or signs of infection MSK: no tics or fasciculations; no edema noted in the LEs b/l, nonerythematous; patient demonstrates ability to wiggle toes bilaterally; 5/5 code official strength bilaterally; 1/5 strength in the lower extremities bilaterally when lifting leg from the bed or lying supine Neuro: A&Ox3; flat affect; mumbled speech; no facial droop appreciated; patient reports sensation is intact and symmetric in the lower extremities bilaterally assessed via light touch Reexamined patient at 1400: Patient now exhibits ability to protrude and wiggle his tongue [id number]; his pupils appear less constricted, and he is more talkative; he still exhibits garbled speech and is occasionally slow to respond to questioning; 5/5 code official strength; 1/5 strength in lower EXTR bilaterally; no facial droop Results & Data Results & Data Vital Signs (Past 12 Hours) Vital Signs Temp Pulse Resp BP BP Pulse Ox O2 Del Method 09/05/25 10:57 Room Air 09/05/25 08:00 36.6 C 67 16 146/78 H 92 Room Air 09/04/25 23:41 36.7 C 64 16 144/70 H 95 Room Air PG Care Time/CCT Total # of Minutes Spent Total Time Spent with Patient: Total time spent is greater than 50% in coordination of care (as documented) at patient's floor/unit and/or counseling patient: Coding [place] [address] SUB INP/OBS CARE 3/50MIN Patient Type Established Medical Decision Making High Complexity Diagnoses 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 G06.1 MSSA bacteremia R78.81; B95.61 Lumbar discitis M46.46 Atrial flutter, unspecified type I48.92 Atrial flutter type: unspecified Primary hypertension I10 Hypertension type: primary hypertension Hyperlipidemia, unspecified hyperlipidemia type E78.5 Hyperlipidemia type: unspecified Diabetes mellitus, type 2 E11.9 (4) Atrial flutter Atrial flutter type: unspecified Qualified Code(s): I48.92 - Unspecified atrial flutter (5) Hypertension Hypertension type: primary hypertension Qualified Code(s): I10 - Essential (primary) hypertension (6) Hyperlipidemia Hyperlipidemia type: unspecified Qualified Code(s): E78.5 - Hyperlipidemia, unspecified
[2025-09-05] MEDS: LIDOCAINE 5% 1 PATCH TD STA (11:31)
[2025-09-05] MEDS: ACETAMINOPHEN 500 MG TAB PO SCH (20:19)
[2025-09-05] MEDS: REMOVE LIDODERM PATCH SCH (20:23)
[2025-09-05] MEDS ORDERED: REMOVE LIDODERM PATCH SCH (21:00)
[2025-09-05] MEDS: HYDROCODONE/ACETAMOPHEN 5/325MG TAB PO PRN (23:38)
[2025-09-06] MEDS: LIDOCAINE 5% 1 PATCH TD SCH (07:54)
--- NOTE | 2025-09-06 08:43 | Orthopedic Progress Note ---
Date of Service September 06, 2025 Assessment & Plan (1) S/P lumbar laminectomy: * Continue Current Treatment * S/p lumbar decompression, I&D * Appears to have returned to baseline regarding lethargy and orientation * Weight bearing status: Full activity as tolerated * Stressed importance of mobilizing with PT, encouraged time out of bed and as much activity as he can tolerate * Daily treatment: Physical Therapy/ Occupational Therapy per protocol * Pain control * Continue to monitor for ABLA * DVT prophylaxis, ok to resume from ortho standpoint * May change dressing as needed * Disposition: TBD * Office/hospital f/u 2 weeks for progress check and staple/suture removal * Remainder care per primary team * Will follow peripherally from orthopedic standpoint. 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 Markedly improved this morning regarding orientation and exam participation. Reports his leg pain is significantly improved but does have some soreness in his low back. Denies tingling or numbness beyond his baseline neuropathy. Currently sitting upright and starting to eat breakfast. Review of Systems All systems reviewed & are unremarkable except as noted in HPI & below. Physical Exam * Musculoskeletal: Surgical dressing CDI. Lumbar spine region without obvious deformity or overlying skin changes. Minimal tenderness of surgical region, otherwise no tenderness b/l buttock or LE. Lumbar flexion/extension and rotation ROM with minimal pain. AROM b/l hip flexion, knee flexion/extension, ankle flexion/extension intact. Sensation intact plantar/dorsal foot. Brisk capillary refill. Results & Data Results & Data Laboratory Results . Diagnostic Findings . 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
--- NOTE | 2025-09-06 14:57 | Hospitalist Progress Note ---
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 His evaluation reveals mild leukocytosis of 13, mild anemia with H&H 12.5/39.5. ESR 67, still pending CRP results. Procalcitonin is normal. CTAP is without acute findings. His L-spine CT does reveal subtle inflammatory changes of the soft tissues in the anterior L2-L3 interspace. Admission for intractable back pain, pending MRI to rule out discitis. #MSSA bacteremia 08/27 BCx x2: Staph aureus in 2/2 sets (3/4 bottles), BCID + Staph aureus and neg for MRSA (c/w MSSA) 08/28 BCx x2: gram + cocci 08/29 BCx remains with NGTD 08/31 lower back wound culture grew staph aureus (MSSA) as well as cutibacterium acnes Right toe x-ray secondary to wound to right great toe with no underlying osteo ID consult appreciated Cefazolin 2g IV q8h (START ON 08/31/25, STOP on 10/11/25), can consider cefazolin 6g IV daily continuous infusion if desired by patient and for d/c purposes Anticipate at least an 8-week course of IV abx for MSSA bacteremia and spinal infection, and repeat L-spine MRI prior to EOT TTE with no evidence of a mass or vegetation, normal mitral valve anatomy Note: ANA not pursued at this time as Bcx from 08/29 remain NGTD #Intractable back pain | Discitis| s/p laminectomy for excision and evacuation of intraspinal lesion other than neoplasm, extradural; lumbar L3-L5 (lumbar epidural abscess) On arrival: w/o worse numbness/tingling (h/o neuropathy), saddle anesthesia, or incontinence of bowel or bladder (does have urinary incontinence at baseline). No infectious symptoms. Orthopedics consult appreciated Underwent laminectomy for excision or evacuation of intraspinal lesion (L3-5) with Dr. Hensley on 08/31/25 Drain removed on 09/03 WBAT Fall precautions Heating pad PRN Acetaminophen PRN PT/OT consults appreciated Patient will require acute rehab upon discharge, and suspect based on his movement on 09/03 and 09/04 that he is becoming increasingly deconditioned in the hospital Per PT note on 09/04, acute rehab is still planned, patient is at maximum assist in almost all capacities Per CM, [facility] has bed availability and can accommodate 6 to 8 weeks of IV antibiotics #AMS | adverse reaction to opioid medications (resolved) Patient began to exhibit altered mental status, garbled speech, & difficulty sw allowing on the morning of 09/03 Given acute change in mentation (new changes in speech), there was concern for thrombolic event in the setting of MSSA bacteremia Repeat imaging of the lumbar, thoracic, and cervical spine revealed no acute finding Head CT revealed no acute abnormality Brain MRI read demonstrated a chronic right cerebellar infarct, but no acute finding Given negative workup, suspected to be a side effect from opioid use while in the hospital Nursing staff reported lethargy, carpal speech, and potential hallucinations on the morning of 09/05 IV Dilaudid and p.o. oxycodone have subsequently been discontinued New pain regimen as follows: Scheduled acetaminophen 500 mg p.o. TID Baclofen 10 mg p.o. BID Lidocaine patch QAM Heating pad PRN Tizanadine PRN [place] 5-325 q6h PRN for breakthrough pain Speech therapy consult appreciated Given difficulty with movement/back pain, VFSS not recommended at this time Maintain diet as before #UTI? Denies urinary symptoms of dysuria, fever, flank pain, or foul-smelling urine UA with 1+ leuks, UC with enterococcus faecalis 80,000, will repeat as possible contamination #T2DM Most recent A1C 05/2025 @ 5.1% Hold metformin SSI with target BSG range 110-140mg/dL, CF 30, carb ratio 10 BSG ACHS Adjust regimen as needed #A-flutter Continue amiodarone, metoprolol Eliquis resumed 09/01 evening #HTN Continue amlodipine, furosemide, losartan #BPH/Urinary incontinence Continue alfuzosin, finasteride, vibegron #Depression Continue duloxetine #HLD Continue simvastatin #GERD Continue pantoprazole Dispo: AMS fully resolved on 09/06; elevated CM at 0940 who was admitted insurance authorization for [facility] Hopeful discharge today or tomorrow pending insurance authorization VTE prophylaxis: Yoly Nunez post op Admission and Anticipated Discharge Date Admission Date: August 27, 2025 Subjective Mr. Quiroz reports he slept "really good". He feels much more awake and oriented today compared to yesterday. He is able to answer all questions appropriately and is A& O x 3. He reports that lower back pain is "so-so" today, but might of been exacerbated by working with PT this morning. He is also having lower stomach pain, but reports this is not new for him. When asked if he would be open to going to rehab today, he responds "well, I got to get over there at some point". Believes that the [place] tablets have been working for him for pain control. ROS: Patient endorses lower back pain, and mild RLQ abdominal pain. Patient denies fevers overnight, chest pain, SOB, cough, nausea, vomiting, or diarrhea. Review of Systems Review of Systems: See HPI above Physical Exam Physical Exam: General: no acute distress; pleasant affect; non-toxic appearing; frail- appearing; cooperative; SpO2 92% on RA HEENT: normocephalic, atraumatic; PERRLA with EOMs intact; pupils are no longer pinpoint; vision and hearing intact; patient demonstrates ability to protrude and wiggle tongue bilaterally Neck: supple; trachea midline Skin: warm, dry without signs of tenting; no cyanosis; no rashes, bruising, lesions, or erythema noted CV: chest wall NTP; RRR; S1/S2 normal; no murmurs/rubs/gallops; pulses intact and symmetric at radial, DP, and PT Lungs: no acute respiratory distress; symmetrical chest wall expansion; clear breath sounds across all lung stafford w/o adventitious sounds; no wheezing ABD: Soft, NTP; BS present; no rebound/guarding; no distention MSK: no tics or fasciculations; no edema noted in the LEs b/l, nonerythematous; 5/5 pass worker strength bilaterally; 3/5 strength with plantar/dorsiflexion in the ankles bilaterally; 2/5 strength when attempting to lift legs off the bed while lying supine Neuro: A&Ox3; normal mood and affect; patient still exhibits slightly mumbled/garbled speech, but responds appropriately to all questioning; no facial droop; patient reports sensation is intact and symmetric in lower extremity bilaterally assessed via light touch Results & Data Results & Data Vital Signs (Past 12 Hours) Vital Signs Temp Pulse Pulse Resp BP Pulse Ox O2 Del Method 09/06/25 14:26 36.6 C 65 16 126/64 94 Room Air 09/06/25 07:11 37.1 C 64 16 150/70 H 92 Room Air PG Care Time/CCT Total # of Minutes Spent Total Time Spent with Patient: Total time spent is greater than 50% in coordination of care (as documented) at patient's floor/unit and/or counseling patient: C[place] [address] SUB INP/OBS CARE 2/35MIN Patient Type Established History Comprehensive Exam Comprehensive Medical Decision Making Moderate Complexity Diagnoses 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 G06.1 MSSA bacteremia R78.81; B95.61 Lumbar discitis M46.46 Atrial flutter, unspecified type I48.92 Atrial flutter type: unspecified Primary hypertension I10 Hypertension type: primary hypertension Hyperlipidemia, unspecified hyperlipidemia type E78.5 Hyperlipidemia type: unspecified Diabetes mellitus, type 2 E11.9 (4) Atrial flutter Atrial flutter type: unspecified Qualified Code(s): I48.92 - Unspecified atrial flutter (5) Hypertension Hypertension type: primary hypertension Qualified Code(s): I10 - Essential (primary) hypertension (6) Hyperlipidemia Hyperlipidemia type: unspecified Qualified Code(s): E78.5 - Hyperlipidemia, unspecified
[2025-09-07 07:27] VITALS: PULSE 74; TEMP 97.9; O2SAT 93
--- NOTE | 2025-09-07 10:04 | Discharge Summary ---
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 His evaluation reveals mild leukocytosis of 13, mild anemia with H&H 12.5/39.5. ESR 67, still pending CRP results. Procalcitonin is normal. CTAP is without acute findings. His L-spine CT does reveal subtle inflammatory changes of the soft tissues in the anterior L2-L3 interspace. Admission for intractable back pain, pending MRI to rule out discitis. #MSSA bacteremia 08/27 BCx x2: Staph aureus in 2/2 sets (3/4 bottles), BCID + Staph aureus and neg for MRSA (c/w MSSA) 08/28 BCx x2: gram + cocci 08/29 BCx remains with NGTD 08/31 lower back wound culture grew staph aureus (MSSA) as well as cutibacterium acnes Right toe x-ray secondary to wound to right great toe with no underlying osteo ID consult appreciated Cefazolin 2g IV q8h (START ON 08/31/25, STOP on 10/11/25) Anticipate at least an 8-week course of IV abx for MSSA bacteremia and spinal infection, and repeat L-spine MRI prior to EOT PICC line placed on 09/07 Obtained consent from patient at bedside and went over risks/benefits of PICC/midline (infection, blood clots, mechanical issues, etc.); patient consents on discharge TTE with no evidence of a mass or vegetation, normal mitral valve anatomy Note: ANA not pursued at this time as Bcx from 08/29 remain NGTD #Intractable back pain | Discitis| s/p laminectomy for excision and evacuation of intraspinal lesion other than neoplasm, extradural; lumbar L3-L5 (lumbar epidural abscess) On arrival: w/o worse numbness/tingling (h/o neuropathy), saddle anesthesia, or incontinence of bowel or bladder (does have urinary incontinence at baseline). No infectious symptoms. Orthopedics consult appreciated Underwent laminectomy for excision or evacuation of intraspinal lesion (L3-5) with Dr. Hensley on 08/31/25 Drain removed on 09/03 WBAT Fall precautions Heating pad PRN Acetaminophen PRN PT/OT consults appreciated Patient will require acute rehab upon discharge, and suspect based on his movement on 09/03 and 09/04 that he is becoming increasingly deconditioned in the hospital Per PT note on 09/04, acute rehab is still planned, patient is at maximum assist in almost all capacities Per CM, [facility] has bed availability and can accommodate 6 to 8 weeks of IV antibiotics D/c on 09/07 #Adverse reaction to opioid medications (resolved) Patient began to exhibit altered mental status, garbled speech, & difficulty swallowing on the morning of 09/03 Given acute change in mentation (new changes in speech), there was concern for thrombolic event in the setting of MSSA bacteremia Repeat imaging of the lumbar, thoracic, and cervical spine revealed no acute finding Head CT revealed no acute abnormality 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 oxycodone have subsequently been discontinued New pain regimen as follows: Scheduled acetaminophen 500 mg p.o. TID Baclofen 10 mg p.o. BID Lidocaine patch QAM Heating pad PRN Tizanadine PRN [place] 5-325 q6h PRN for breakthrough pain Patient is more awake / oriented while receiving [place], okay to continue on d/c Speech therapy consult appreciated Maintain diet as before #T2DM Most recent A1C 05/2025 @ 5.1% Hold metformin SSI with target BSG range 110-140mg/dL, CF 30, carb ratio 10 BSG ACHS Adjust regimen as needed #A-flutter Continue amiodarone, metoprolol Eliquis resumed 09/01 evening #HTN Continue amlodipine, furosemide, losartan #BPH/Urinary incontinence Continue alfuzosin, finasteride, vibegron #Depression Continue duloxetine #HLD Continue simvastatin #GERD Continue pantoprazole Day of discharge 09/07: Patient is mildly hypertensive at 148/73; vitals otherwise stable. Patient is in good spirits this morning. He slept well last night, and reports he is ready to go to rehab today. He still has 6 out of 10 back pain, but reports that it is improved from prior. He denies any other symptoms at this time. He reports he updated his (Basia) today regarding discharge plan. Dispo: Discharge to [facility] for acute rehab VTE prophylaxis: Yoly Nunez post op Notes For Next Care Provider Patient hospitalized for worsening/intractable lower back pain. Suspected lumbar discitis on arrival. Underwent laminectomy for excision or evacuation of intraspinal lesion (L3-5) with Dr. Hensley on 08/31/25. Per ID, patient will need cefazolin 2 g IV q8h until 10/11/2025. He will also need a repeat L-spine MRI prior to end of treatment. Patient being discharged to [facility] for acute rehab, who can accommodate IV antibiotics. PICC line placed on 09/07. 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 Patient does not recall any trauma or falls. 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 He describes it as a sharp pain that comes and goes, mainly with movement. On the pain scale rating up to 10, he jokes that his pain is a 32 on the scale, that states it is a 10 out of 10 on the pain scale. He states that occasionally he has pain in his neck as well that is worse with movement, he frequently gets injections in this area every 3 months. He does admit to numbness of his bilateral legs below the knees, but states that this is secondary to his neuropathy has been unchanged for many years. He has some urinary incontinence at baseline, this is not worsening. No sensation changes to the saddle region. 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 Again, he does not recall any trauma or falls. Unclear when the sudden worsening of pain. No infectious symptoms to include fever/chills, wounds to the area, or significant swelling. He had been on chronic prednisone in the past for psoriatic art hritis, no longer on this. 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 ED evaluation reveals CBC with mild leukocytosis 13, H&H 12.5/39.5, ESR 67; CMP BUN 33, ratio 29.2, glucose 190; CRP pending; procalcitonin 0.16; CTAP unchanged mild AAA, bilateral renal calculi and L renal cyst; L-spine CT subtle inflammatory changes soft tissues anterior to L2-L3 interspace (? Early discitis).; Provided with 500 mL NSS, morphine 4 g IV, and ketorolac 10 mg IV in ED. Please see Dr. Reddy's attestation for adjustments/additions to treatment plan. Admission Exam Per Admitting Provider General: No acute distress Skin: Warm and dry Head: Normocephalic, atraumatic Eyes: PERRL, conjunctivae clear, sclera non-icteric ENT: External ear and ear canal without swelling; nose atraumatic; dentures for dentition, tongue normal appearance, pharynx normal Neck: Supple, no LAD Cardio: RRR, no M/G/R, S1 and S2 normal Resp: No respiratory distress, Lungs CTA in all lobes bilaterally, no wheezes, rales, or rhonchi Abdomen: Soft, symmetric, nontender; No masses or hepatosplenomegaly; Bowel sounds normoactive MSK: Pt unable to adjust to access his back 2/2 pain; negative straight leg raise bilaterally; No deformities; pulses palpable and equal; no edema. Neuro: Awake, alert; Sensation intact bilaterally; CN grossly intact Psych: Appropriate mood and affect; good judgement and insight. Discharge Exam General: no acute distress; pleasant affect; non-toxic appearing; frail- appearing; cooperative; SpO2 93% on RA HEENT: normocephalic, atraumatic; PERRLA with EOMs intact; pupils are no longer pinpoint; vision and hearing intact; patient demonstrates ability to protrude and wiggle tongue bilaterally Neck: supple; trachea midline Skin: warm, dry without signs of tenting; no cyanosis; no rashes, bruising, lesions, or erythema noted CV: chest wall NTP; RRR; S1/S2 normal; no murmurs/rubs/gallops; pulses intact and symmetric at radial, DP, and PT Lungs: no acute respiratory distress; symmetrical chest wall expansion; clear breath sounds across all lung stafford w/o adventitious sounds; no wheezing ABD: Soft, NTP; BS present; no rebound/guarding; no distention MSK: no tics or fasciculations; no edema noted in the LEs b/l, nonerythematous; 5/5 slasher hand strength bilaterally; 3/5 strength with plantar/dorsiflexion in the ankles bilaterally; 2/5 strength when attempting to lift legs off the bed while lying supine Neuro: A&Ox3; normal mood and affect; patient still exhibits slightly mumbled/garbled speech, but responds appropriately to all questioning; no facial droop; patient reports sensation is intact and symmetric in lower extremity bilaterally assessed via light touch Discharge Plan Discharge Items Patient Disposition: Transfer [facility] Reason For Visit: INTRACTABLE BACK PAIN, R/O DISCITIS Discharge Diagnosis: Lumbar discitis, MSSA bacteremia and MSSA L3-L4 discitis/osteomyelitis, L2-L3 prevertebral phlegmon/abscess, L3-L4 epidural phlegmon Condition on Discharge: Fair Activity: Per Instructions section Bathing: May shower/bathe in 3 days Weightbearing: Full weightbearing Non-emergency contact: Surgeon Call non-emergency contact if: your symptoms worsen, your temperature is above 101.5, your wound has increased redness and your wound has increased drainage Follow-up/Referrals: Ana Lindo DO [Primary Care Provider] - Vitaly Hensley MD [Surgeon] - (f/u in office 2-3 wks after surgery) Diet: Regular Addtl Attending Provider Instructions: Instructions for Non-Fusion Spine Surgery YOU WILL BE PROVIDED WITH A PRESCRIPTION STRENGTH ANTI-INFLAMMATORY MEDICATION. THIS WILL BE THE BEST PAIN MEDICATION FOR THE TYPE OF PAIN YOU WILL EXPERIENCE. DO NOT TAKE ANY HERBAL SUPPLEMENTS MEDICATIONS: Toradol or other prescription non-steroidal anti-inflammatory drugs (NSAIDs): take for 3 days post op for pain control, as long as you do not have a contr aindication for NSAIDs from your primary care physician. Oxycodone, Percocet, or Hydrocodone For breakthrough pain. Cyclobenzaprine (Flexeril), Tizanide (Zanaflex), or Methocarbamol (Robaxin) F or muscle spasms. Senna-s and Miralax Senna-S twice daily, 17g packet of Miralax with water once daily while taking narcotics. These medications prevent constipation caused by the pain medications. Ondansetron (Zofran) For nausea Cephalexin (Keflex) or Sulfamethoxazole/trimethoprim (Bactrim). Antibiotic. You are given IV antibiotics while in the hospital; you may or may not be given a prescription for home; this will be decided after surgery. Your pre-surgery prescription medications With the exception of anti-inflammat ory medications, blood thinners (Coumadin, Plavix, Eliquis, Pradaxa, etc}, or narcotic pain medications, you may resume your home medications. For the above medications, you will be given specific instructions. ACTIVITIES: Walking Walking is mandatory. You need to walk at least once every hour while awake. Walking will help prevent blood clots in your legs and help prevent spasms in your back. Bending/twisting It is safe to gently bend, roll over, sit up, lie on your back and do other normal activities. You may sleep in any position that is comfortable. Avoid athletic activities until further notice. Lifting Do not lift more than 10 lbs until further notice. Driving You may drive when you are no longer taking narcotic pain medications, can safely operate the brake/gas/clutch pedals, and can move your head/neck for visibility. Tobacco All tobacco products are strictly prohibited after surgery. Any use will dramatically increase your risk of complications. This includes vapor cigarettes, marijuana, nicotine patches and gums. Bracing/Cervical Collar Not required; if you are provided a soft collar it is for comfort and may be worn as desired. SURGICAL DRESSING Initial operative dressing is to stay on for 2 days; you may change if it becomes saturated. From then on, change the dressing daily with dry gauze and paper tape. Continue to change dressing until there is no discharge on the dressing. Once there is no discharge on the dressing, you may leave the incision open to air and make sure to keep it out of the sun. For supplies, stop by any local pharmacy. Any type of gauze dressing is acceptable. Do not put any ointments on the wound. SHOWERING You may shower 48 hours after your surgery. Cover the incision with Saran Wrap and tape the edges to prevent water from contacting the incision. If water contacts the incision, pat dry. No baths or submerging the incision until seen in the clinic at follow up appointment. QUESTIONS Please contact the office with questions or concerns: [phone] If outside normal business hours, you will be connected with the on-call physician. Addtl Dis[employer] Provider Instructions: Per hospital medicine team: You were hospitalized at [facility] from 08/27 to 09/07 for worsening lower back pain. Blood cultures on arrival grew bacteria called Staphylococcus aureus, and it was suspected that your lower back infection had spread to your blood, leading to an infection known as "bacteremia". Our infectious disease doctors were consulted, and they recommend that you continue on a course of IV antibiotics (cefazolin) x 6 weeks. This means that you will need a PICC line (long-term IV) prior to discharge. We recommend that you continue to receive cefazolin 2 g IV every 8 hours until October 11, 2025. Additionally, while in the hospital, you underwent a laminectomy procedure with our orthopedic spine team (Dr. Hensley). During this procedure, an epidural abscess was confirmed in your lumbar spine between the L3 and L5 vertebrae (confirming that the infection likely spread from your back). Our physical and Occupational Therapy teams worked with you while you are in the hospital, and ultimately recommended that you be transferred to acute rehab upon discharge. Given your vitals are currently stable, you do not have an elevated white blood cell count to indicate signs of severe infection, and you report improvement in your symptoms, we feel that you are safe to be transferred to [facility] on 09/07. New prescriptions on discharge: Cefazolin 2 g IV every 8 hours (to be continued through 10/11) [place] (acetaminophen/hydrocodone) 1 tablet every 6 hours as needed for severe breakthrough pain (scale 710) It is also recommend that you follow-up with the infectious disease team in the next 4 to 5 weeks as an outpatient. While you are on IV antibiotics, you will need to have the following blood work drawn weekly: CBC with differential, CMP, ESR, and CRP. Please plan to follow-up with your PCP as soon as possible for a transitional care appointment. If you develop any new or worsening symptoms, such as intractable lower back pain, fever, chills, inability to walk, nausea, vomiting, numbness or tingling going down the legs, loss urinary/fecal continence, chest pain, or trouble breathing, please return to the emergency department immediately. It was a pleasure taking care of you. Please reach out with any questions or concerns. Sincerely, The Hospital medicine team at [facility] Per infectious disease team: Diagnosis: MSSA bacteremia and MSSA L3-L4 discitis/osteomyelitis, L2-L3 prevertebral phlegmon/abscess, L3-L4 epidural phlegmon, s/p laminectomy L3-L5 on 08/31/25 Organism: MSSA Antibiotic (dose and frequency): cefazolin 2 g IV q8h (or cefazolin 6 g IV daily continuous infusion, if desired by patient/if discharging home) Start of therapy: 08/31/25 End of therapy: 10/11/25 Labs should be faxed to: ID office, [facility] [phone] Labs needed and frequency: CBC w/ diff, CMP, ESR, CRP Please follow up with [facility] in outpatient clinic: Clinic Address [address] [place] [address] Office (P) [phone] Appointment-time frame: 4-5 weeks Pending Studies at Discharge: No Stand-Alone Forms: My [facility] Skilled Items Patient informed of condition?: Yes DNR: No Discharge Level of Care: Skilled Communicable Disease: No Discharge Prognosis: Stable Lines: PICC Urinary Catheter: No Medications and DC Order Prescriptions: New acetaminophen [Tylenol Extra Strength] 500 mg Tablet 500 mg PO TID Qty: 30 0RF hydrocodone-acetaminophen 5-325 mg Tablet 1 tab PO Q6H PRN (Reason: severe pain (scale score 7-10)) Qty: 20 0RF Rx Instructions: Take 1 tablet by mouth every 6 hours as needed for severe breakthrough pain (pain scale 7-10) cefazolin 2 gram recon soln 2 g IV Q8H 35 Days Rx Instructions: Cefazolin 2 g IV every 8 hours via PICC line Continued amlodipine 10 mg tablet 10 mg PO DAILY aspirin [Adult Low Dose Aspirin] 81 mg tablet,delayed release (DR/EC) 81 mg PO HS baclofen 10 mg tablet 10 mg PO BID Qty: 60 1RF finasteride 5 mg tablet 5 mg PO DAILY Qty: 90 3RF metformin 1,000 mg tablet 1,000 mg PO BID Qty: 180 1RF Gemtesa 75 mg tablet 75 mg PO DAILY Qty: 90 3RF ferrous sulfate 325 mg (65 mg iron) tablet 325 mg PO BID Hold Instructions: Resume on 07/26/23. hold while actively ill pantoprazole 40 mg tablet,delayed release (DR/EC) 40 mg PO DAILY Qty: 90 1RF potassium chloride 20 mEq tablet extended release 20 meq PO QAM Qty: 90 1RF amiodarone 200 mg tablet 200 mg PO DAILY Qty: 90 0RF Eliquis 5 mg tablet 5 mg PO BID Qty: 180 3RF simvastatin 20 mg tablet 20 mg PO QAM Qty: 90 1RF furosemide [Lasix] 20 mg tablet 20 mg PO DAILY Qty: 30 2RF losartan 100 mg tablet 100 mg PO QPM Qty: 90 1RF folic acid 1 mg tablet 1 mg PO DAILY duloxetine 60 mg capsule,delayed release(DR/EC) 60 mg PO DAILY duloxetine 30 mg capsule,delayed release(DR/EC) 30 mg PO DAILY alfuzosin [Uroxatral] 10 mg tablet extended release 24 hr 10 mg PO DAILY Qty: 90 3RF Rx Instructions: administer after the same meal each day metoprolol succinate 25 mg tablet extended release 24 hr 25 mg PO DAILY Qty: 30 5RF [id number] Tablet 1 tab PO QPM docusate sodium [Stool Softener] 100 mg capsule 100 mg PO QPM Rx Instructions: PM magnesium oxide 400 mg (241.3 mg magnesium) Tablet 400 mg PO QAM Qty: 30 0RF Discontinued acetaminophen 500 mg tablet 500 mg PO Q6H PRN (Reason: Pain) Discharge Orders: Discharge Order (Routine); Ordered 09/07/25 Ordered By: Mitchell Mistry Admission Data Admit Date/Time: 08/27/25 22:45 Attending Provider: Tyson Archibald Admit Provider: Samuel Reddy Primary Care Provider: Ana Lindo. Other Providers: [facility]; [facility] [place]; Samuel Reddy; Jonathan Patel; Cole Kelley; Monica Mina; Yanni Reyes; Graeme Otoole; Vitaly Hensley; Rodo Grant; Graeme Mina; Efraín Valentine; Katie Álvarez; Ileana Roman; Lucy Prakash; Yamilet Eaton; Constantino Whitt; Quentin Pablo; Ran Mullen; Efraín Pitts; Yvette Contreras; Darrel Howe; Blas Berger; Aman Hartley; Landy Grant; Chandan Pizano; Shaina Pizano; Wilberto Fraga; Yanni Cano; Jong Marx; Meena Sweeney; Avis Nguyen; Johan Goodman; Torrie Stallworth; Justine Leavitt; Barb Ibrahim; Morena Beckham; Reggie Acuña V; Hans Vital; Ileana Mccormick; Prasad Pond; Niki Sandoval; Reggie Parisi; Foster Grant; Simon Duarte; Rhea Elizabeth; Dyan Griffin; Reggie Weiner; Kevin Levy.; Alexus Wright.; Vitaly Munguia.; Herminia Luong; Mary Weeks; Camacho Contreras; Grayson Torres; Racheal Pena; Ran Ramos; Chyna Soria; Renzo Howard; Partha Hernández; Constantino Robb Jr; Yanique King; Kacy Penny; Dara Solano; Johan Amin; Mitchell Veneags; Kacy Friedman; Fredy Lzoano; Quincy Carrasco; Eduardo Gates; Stuart Mckenzie; Garfield Waller; Sharon Noble; Laura Estrada; Lea Ceballos; Lorraine Conn; Soham Gonzalez Jr; Fabiola Pillai; Torrie Cisneros; Camacho Martinez; Mirta Olivo; Ekta Rodríguez; Yvette Oreilly; Senia Grant; Mark Anthony Mckeon Other Interventions: Discharge Summary Assessment (RN) Last Done: 09/07/25 10:37 Hospital Stay Data Consultations 08/27/25 20:30 ED Decision to Admit Stat 08/28/25 09:43 Consult Orthopedic Spine Surgery Routine 08/28/25 13:39 Consult Infectious Diseases Routine 08/29/25 18:16 Consult Orthopedic Surgery Routine 08/30/25 14:10 Consult Anesthesiology Routine Procedures Performed Operation Date: 08/31/25 07:30 Actual Procedures p L3 Lumbar Laminectomy(Not Applicable) - Vitaly Hensley MD Diagnostic Imagining Performed 08/27/25 16:01 CT abd pelvis IV con only Stat CT lumbar spine w con Stat 08/27/25 22:46 MRI Lumbar Spine [MR lumbar spine wo/w con] Stat 08/28/25 16:57 MR cervical spine wo/w con Routine 08/31/25 FL spine 1V any level Routine 09/03/25 09:01 CT head/brain wo con Stat MRI Brain [MR brain wo/w con] Routine 09/03/25 09:11 MR cervical spine wo/w con Stat MR lumbar spine wo/w con Stat MR thoracic spine wo/w con Stat Discharge Instructions Given to Patient (Per Discharging Provider) Instructions for Non-Fusion Spine Surgery YOU WILL BE PROVIDED WITH A PRESCRIPTION STRENGTH ANTI-INFLAMMATORY MEDICATION. THIS WILL BE THE BEST PAIN MEDICATION FOR THE TYPE OF PAIN YOU WILL EXPERIENCE. DO NOT TAKE ANY HERBAL SUPPLEMENTS MEDICATIONS: Toradol or other prescription non-steroidal anti-inflammatory drugs (NSAIDs): take for 3 days post op for pain control, as long as you do not have a contraindication for NSAIDs from your primary care physician. Oxycodone, Percocet, or Hydrocodone For breakthrough pain. Cyclobenzaprine (Flexeril), Tizanide (Zanaflex), or Methocarbamol (Robaxin) For muscle spasms. Senna-s and Miralax Senna-S twice daily, 17g packet of Miralax with water once daily while taking narcotics. These medications prevent constipation caused by the pain medications. Ondansetron (Zofran) For nausea Cephalexin (Keflex) or Sulfamethoxazole/trimethoprim (Bactrim). Antibiotic. You are given IV antibiotics while in the hospital; you may or may not be given a prescription for home; this will be decided after surgery. Your pre-surgery prescription medications With the exception of anti- inflammatory medications, blood thinners (Coumadin, Plavix, Eliquis, Pradaxa, etc}, or narcotic pain medications, you may resume your home medications. For the above medications, you will be given specific instructions. ACTIVITIES: Walking Walking is mandatory. You need to walk at least once every hour while awake. Walking will help prevent blood clots in your legs and help prevent spasms in your back. Bending/twisting It is safe to gently bend, roll over, sit up, lie on your back and do other normal activities. You may sleep in any position that is comfortable. Avoid athletic activities until further notice. Lifting Do not lift more than 10 lbs until further notice. Driving You may drive when you are no longer taking narcotic pain medications, can safely operate the brake/gas/clutch pedals, and can move your head/neck for visibility. Tobacco All tobacco products are strictly prohibited after surgery. Any use will dramatically increase your risk of complications. This includes vapor cigarettes, marijuana, nicotine patches and gums. Bracing/Cervical Collar Not required; if you are provided a soft collar it is for comfort and may be worn as desired. SURGICAL DRESSING Initial operative dressing is to stay on for 2 days; you may change if it becomes saturated. From then on, change the dressing daily with dry gauze and paper tape. Continue to change dressing until there is no discharge on the dressing. Once there is no discharge on the dressing, you may leave the incision open to air and make sure to keep it out of the sun. For supplies, stop by any local pharmacy. Any type of gauze dressing is acceptable. Do not put any ointments on the wound. SHOWERING You may shower 48 hours after your surgery. Cover the incision with Saran Wrap and tape the edges to prevent water from contacting the incision. If water cont acts the incision, pat dry. No baths or submerging the incision until seen in the clinic at follow up appointment. QUESTIONS Please contact the office with questions or concerns: [phone] If outside normal business hours, you will be connected with the on-call physician. Total Time Total Time Spent Total Time Spent (In Minutes): 45 Coding Level of Care Code 88967 INP/OBS DISCH >30 MIN Diagnoses 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 G06.1 MSSA bacteremia R78.81; B95.61 Lumbar discitis M46.46 Atrial flutter, unspecified type I48.92 Atrial flutter type: unspecified Primary hypertension I10 Hypertension type: primary hypertension Hyperlipidemia, unspecified hyperlipidemia type E78.5 Hyperlipidemia type: unspecified Diabetes mellitus, type 2 E11.9
[2025-09-07 10:39] VITALS: BP 128/67
--- NOTE | 2025-09-07 11:44 | XRay Report ---
XR chest 1V portable CLINICAL HISTORY: picc line placement to right arm COMPARISON STUDY: 09/03/2020 FINDINGS: Stable mild cardiomegaly without pulmonary vascular congestion. Interval right PICC line ti p is just above the cavoatrial junction in good position. There is stable mild stranding opacity in t he lung bases. No pneumothorax. IMPRESSION: Well-positioned right PICC line. ACT 112: Negative or not required by law. Electronically signed by: Johan Bowden M.D. 09/07/2025 11:42 AM
== END 2025-09-07 13:24 | DRG 515 ==
LOC: ED 15:48 → SUATTDRO 22:45 → 3E 22:45

== ENCOUNTER 2025-10-01 13:57 | Inpatient (IN) ==
--- NOTE | 2025-10-01 14:32 | Emergency Department Note ---
Impression & Plan Deep postoperative wound infection, Postoperative wound dehiscence, Anemia, Leukocytosis ED Provider Note NAME: ROGE WOODSON AGE: 85 SEX: M : 1940 ARRIVES VIA: Ambulance INFORMANT: Patient ED PROVIDER(S): Jonathan Munoz DO CHIEF COMPLAINT: Wound dehiscence HPI: Patient is an 85-year-old male with a past medical history of lumbar infection and MSSA bacteremia who presents to the ER for dehiscence of the wound on his back. Patient notes that he has been having worsening back pain over the past 3 days. Denies any headache or change in vision. No chest pain or shortness of breath. No nausea, vomiting, or diarrhea. No dysuria, urgency, or frequency. No new weakness or numbness in the legs. ADDITIONAL HISTORY OBTAINED: Per HPI Chronic Medical/Social Conditions Affecting Care: Per HPI PAST MEDICAL HISTORY:See Below PAST SURGICAL HISTORY:See Below FAMILY HISTORY:See Below SOCIAL HISTORY:See Below HOME MEDICATIONS:See Below ALLERGIES:See Below VITALS:See Below PHYSICAL EXAMINATION: GENERAL: Sitting up in bed, alert, well appearing, well nourished, no distress, non-toxic EYE EXAM: normal conjunctiva. OROPHARYNX: no exudate, no erythema, lips, buccal mucosa, and tongue normal and mucous membranes are moist NECK: supple, no nuchal rigidity, no adenopathy, non-tender LUNGS: Clear to auscultation. Normal chest wall mechanics HEART: no murmurs, S1 normal and S2 normal ABDOMEN: abdomen soft, non-tender, normo-active bowel sounds, no masses, no rebound or guarding. BACK: Back is symmetrical on inspection wound with blood present over the dressing was removed with dehiscence in the mid lumbar region of the incision. UPPER EXTREMITIES: upper extremities are grossly normal. LOWER EXTREMITIES: No pitting edema. NEURO EXAM: Normal sensorium, cranial nerves II-XII grossly intact, normal speech, no gross weakness of arms, no gross weakness of legs. MEDICAL DECISION MAKING: Patient is a an 85-year-old male with a known postop wound infection who presents to the ER for dehiscence of the wound. IV was established and blood work was obtained. Labs show mild leukocytosis of 15,000. Mild anemia 9.9. BMP with slightly elevated glucose of 141. LFTs and bilirubin were unremarkable. Pro-Tung was normal. Discussed with spine who evaluated patient at bedside and recommends admission to the hospitalist. Patient was given daptomycin IV Rocephin. Blood cultures were obtained. Patient was admitted for further workup. Consults/Care Managements Discussions: Per MDM Triage Nursing notes reviewed. Limited review of prior medical records performed Vital Signs: reviewed and remarkable for no significant abnormalities Differential diagnosis: Cellulitis, abscess, MRSA infection, DVT, necrotizing fasciitis, dermatitis, drug eruption, allergic reaction, as well as other pathologies. ER treatment provided: See below Diagnostics interpreted by me include EKG and cardiac monitoring as listed below: -Cardiac Monitoring: An order was placed for continuous cardiac monitoring. The monitor shows a rate of 70 with sinus rhythm. -ECG: none -Laboratory studies:Interpreted by me as stated above in MDM and shown below. Imaging studies: Xrays: As interpreted by me:none CTs show: none Procedures:none Critical Care: None Past Med/Surg History Problem List (Updated 10/01/25 @ 17:24 by Jonathan Munoz DO) Leukocytosis (Acute) Anemia (Acute) Postoperative wound dehiscence (Acute) Deep postoperative wound infection (Acute) Acute blood loss anemia Constipation Bradycardia (Acute) Anemia (Acute) Wound dehiscence, surgical (Acute) S/P lumbar laminectomy (Acute) Lumbar radiculopathy, acute History of reverse total replacement of right shoulder joint MSSA bacteremia (Acute) Lumbar discitis Ambulatory dysfunction (Acute) Psoriatic arthritis Microscopic hematuria Diabetic ulcer of left foot (Acute) Diabetic ulcer of right foot (Acute) Diabetic ulcer of toe of right foot, limited to breakdown of skin (Acute) Urinary incontinence History of DVT (deep vein thrombosis) Hiatal hernia GERD (gastroesophageal reflux disease) Well controlled, stable Cervical facet joint syndrome Cervical dystonia Post-laminectomy syndrome Posterior cervical laminectomy and fusion C3-6 Thrombocytopenia TAYLOR (obstructive sleep apnea) Could not tolerate BIPAP Diabetic peripheral neuropathy associated with type 2 diabetes mellitus Osteoarthritis History of elevated prostate specific antigen (PSA) Diabetic nephropathy associated with type 2 diabetes mellitus Venous insufficiency (chronic) (peripheral) (Chronic) Dupuytren's contracture of left hand Nocturnal hypoxemia Depression (Chronic) Hypertension controlled, stable per pt Hyperlipidemia Chronic steroid use Psoriatic arthritis Diabetes mellitus, type 2 (Chronic) NIDDM - controlled Psoriatic arthropathy Does use prednisone- possibly weaning off prior to surgery Hepatic steatosis 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 History of compression fracture of spine 2020, had cervical laminectomy 04/2020, no recent issues Chronic anemia Chronic/stable, PCP monitoring 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) Medical History Paroxysmal atrial flutter Anemia Loss of protective sensation of skin of deformed foot Dizziness Anemia Chronic pain Tachycardia COVID-19 Hyperbilirubinemia Venous stasis ulcers Trigger finger of right hand 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 S/P arthroscopy of shoulder (01/2016) Left S/P left knee arthroscopy (10/2015) H/O elbow surgery R/L S/P hammer toe correction (11/2013) arthrodesis R toe Status post carpal tunnel release of both wrists H/O bilateral cataract extraction History of tonsillectomy S/P laparoscopic cholecystectomy (07/2018) Hx of difficult intubation - History of difficult intubation in 2007 at [facility]. Per record review they were unable to intubate on 3 attempts. Fast track LMA were unsuccessful. Were able to mask vent with 2 people. Intubated with nasal fiberoptic. - Anesthesia records from 2018 lap adelita showed Grade 1 view with Glidescope #4, smooth intubation - Right shoulder arthroscopy, RCR (12/11/21): LMA#5 placed without difficulty + PNB at [facility]. Family History Mother Cardiac disorder Myocardial infarction Aunt Family history of diabetes mellitus Uncle Family history of diabetes mellitus Other No family history of adverse response to anesthesia Denies family history of Ovarian cancer Prostate cancer Breast cancer Colorectal cancer Social History Smoking Status: Former smoker Tobacco Type: Cigarettes Age Started Using Tobacco: 14; Age Quit Using Tobacco: 44; packs per day: 2; Second Hand Exposure: No; Do You Dip or Chew Tobacco: No; Hx Alcohol Use: No Hx Substance Use: No Preferred Language: Nigerien Communication Ability: Effective Visual Impairment: Limited Hearing Ability: Hard of Hearing Hand Tile Maker Required: No Beliefs That Will Affect Care: None marital status: Current Living Situation: Spouse Current Living Situation Comment: lives with current occupational status: retired How many Children do You have: 4 How many Children do You have Comment: one son are local and able to assist with care as needed. Other children live further away. Feels Safe at Home: Yes Diet: diabetic caffeine: Yes during the past year weight has: remained stable Dental Care, Regularly: Yes Physical Activity Frequency: Daily Physical Activity Frequency Comment: very active around house Seatbelt Use: always Sunscreen Use: Yes Assistive Devices: Cane and Walker Allergies Allergies Allergy/AdvReac Type Severity Reaction Status Date / Time amoxicillin Allergy Intermediate lip Verified 08/27/25 20:40 swelling clavulanic acid Allergy Intermediate lip Verified 08/27/25 20:40 swelling Sulfa (Sulfonamide Allergy Intermediate lip Verified 08/27/25 20:40 Antibiotics) swelling VINCE Inhibitors Allergy Unknown unknown Verified 08/27/25 20:40 clarithromycin AdvReac Intermediate GI upset Verified 08/27/25 20:40 Home Meds Home Medications Medication Instructions Recorded Confirmed aspirin 81 mg tablet,delayed 81 mg PO HS 06/29/18 10/01/25 release (Adult Low Dose Aspirin) docusate sodium 100 mg capsule 100 mg PO HS 01/21/23 10/01/25 (Stool Softener) amlodipine 10 mg tablet 10 mg PO QAM 09/21/23 10/01/25 folic acid 1 mg tablet 1 mg PO QAM 03/07/24 10/01/25 acetaminophen 325 mg tablet 650 mg PO Q6 PRN pain 1-8 10/01/25 10/01/25 acetaminophen 325 mg tablet 650 mg PO Q6 PRN temp>100 10/01/25 10/01/25 acetaminophen 500 mg tablet 500 mg PO TID 10/01/25 10/01/25 amiodarone 200 mg tablet 200 mg PO QAM 10/01/25 10/01/25 apixaban 5 mg tablet (Eliquis) 5 mg PO AMHS 10/01/25 10/01/25 baclofen 10 mg tablet 10 mg PO AMHS 10/01/25 10/01/25 finasteride 5 mg tablet 5 mg PO QAM 10/01/25 10/01/25 furosemide 20 mg tablet (Lasix) 20 mg PO QAM 10/01/25 10/01/25 hydrocodone 5 mg-acetaminophen 325 1 tab PO Q6H PRN pain 9-10 10/01/25 10/01/25 mg tablet losartan 100 mg tablet 100 mg PO HS 10/01/25 10/01/25 metoprolol succinate 25 mg 25 mg PO QAM 10/01/25 10/01/25 tablet,extended release 24 hr multivitamin 1 tab PO HS 10/01/25 10/01/25 pantoprazole 40 mg tablet,delayed 40 mg PO QAM 10/01/25 10/01/25 release protein supplement 1 ea PO BID 10/01/25 10/01/25 simvastatin 20 mg tablet 20 mg PO HS 10/01/25 10/01/25 tamsulosin 0.4 mg capsule 0.4 mg PO QAM 10/01/25 10/01/25 vibegron 75 mg tablet (Gemtesa) 75 mg PO QAM 10/01/25 10/01/25 Previous Rx's Medication Instructions Recorded magnesium oxide 400 mg (241.3 mg 400 mg PO QAM #30 tabs 04/29/25 magnesium) tablet potassium chloride 20 mEq 20 meq PO QAM #90 tabs 07/03/25 tablet,extended release cefazolin 2 gram intravenous 2 g IV Q8H MSSA bacteremia 5 weeks 09/07/25 solution metformin 1,000 mg tablet 1,000 mg PO BID #180 tabs 09/20/25 ferrous sulfate 325 mg (65 mg 325 mg PO QAM #0 tabs 09/25/25 iron) tablet Results & Data (ED) Vital Signs Vital Signs - 24 hr 10/01/25 14:11 10/01/25 14:18 10/01/25 14:18 Temperature 36.7 C Temperature Source Oral Pulse Rate 60 59 L Pulse Rate [Apical] 59 L Pulse Rhythm Regular Pulse Rhythm [Apical] Regular Pulse Strength Normal Pulse Strength [Apical] Normal Respiratory Rate 16 16 Respiratory Effort / Characteristics Non-Labored Spontaneous Non-Labored Spontaneous Respiratory Depth Normal Normal Respiratory Pattern Regular Regular Blood Pressure 117/66 Blood Pressure [Left Arm] 117/66 Blood Pressure Mean 83 Blood Pressure Mean [Left Arm] 83 Blood Pressure Position Lying Blood Pressure Position [Left Arm] Lying Pulse Oximetry 94 94 Oxygen Delivery Method Room Air Room Air Sepsis Recent Fever Within 48 Hours No Sepsis New/Unexplained Change in Mental Status No Sepsis Action Taken by Nursing No Action Required 10/01/25 14:18 10/01/25 16:00 10/01/25 17:03 Temperature Temperature Source Pulse Rate 59 L Pulse Rate [Apical] 59 L 63 Pulse Rhythm Regular Pulse Rhythm [Apical] Regular Pulse Strength Pulse Strength [Apical] Normal Respiratory Rate 16 16 19 Respiratory Effort / Characteristics Non-Labored Spontaneous Respiratory Depth Normal Respiratory Pattern Regular Blood Pressure Blood Pressure [Left Arm] 127/63 106/70 Blood Pressure Mean Blood Pressure Mean [Left Arm] 84 82 Blood Pressure Position Blood Pressure Position [Left Arm] Pulse Oximetry 94 94 Oxygen Delivery Method Room Air Room Air Sepsis Recent Fever Within 48 Hours Sepsis New/Unexplained Change in Mental Status Sepsis Action Taken by Nursing Laboratory Data 10/01/25 14:16 10/01/25 14:16 Lab Results 10/01/25 Range/Units 14:16 WBC 15.44 H (4.8-10.8) K/ul RBC 3.72 L (4.70-6.10) M/uL Hgb 9.9 L (14.0-18.0) g/dL Hct 31.2 L (42.0-52.0) % MCV 83.9 (80.0-100.0) fL MCH 26.6 (25.0-34.0) pg MCHC 31.7 L (32.0-36.0) g/dL RDW Std Deviation 46.7 H (36.4-46.3) fL RDW Coeff of Caren 15.3 H (11.5-14.5) % Plt Count 511 H (130-400) K/uL MPV 9.7 (9.4-12.4) fL Immature Gran % (Auto) 1.7 % Neut % (Auto) 77.3 % Lymph % (Auto) 10.9 % [place] % (Auto) 8.8 % Eos % (Auto) 0.8 % Baso % (Auto) 0.5 % Neut # (Auto) 11.92 H (1.40-6.50) K/uL Lymph # (Auto) 1.69 (1.20-3.40) K/uL [place] # (Auto) 1.36 H (0.11-0.59) K/uL Eos # (Auto) 0.13 (0.00-0.50) K/uL Baso # (Auto) 0.07 (0.00-0.20) K/uL Immature Gran # (Auto) 0.27 H (0.01-0.20) K/uL Sodium 136 (136-145) mmol/L Potassium 4.2 (3.5-5.1) mmol/L Chloride 98 (98-107) mmol/L Carbon Dioxide 29 (21-32) mmol/L Anion Gap 9 (3-11) BUN 19 (6-23) mg/dl Creatinine 0.78 (0.6-1.4) mg/dl Est Cr Clr Drug Dosing 65.2 ml/min eGFR 86.31 BUN/Creatinine Ratio 24.4 H (10-20) Glucose 141 H (70-99(Fasting)) mg/dl Calcium 9.5 (8.6-10.3) mg/dl Total Bilirubin 0.3 (0.2-1.0) mg/dl AST 12 L (13-39) U/L ALT < 3 L (7-52) U/L Alkaline Phosphatase 105 H (34-104) U/L Total Protein 7.4 (6.0-8.3) gm/dl Albumin 3.2 L (3.4-5.0) gm/dl Globulin 4.2 H (2.5-4.0) gm/dl Albumin/Globulin Ratio 0.8 L (0.9-2) Lipase 4 L (11-82) U/L Procalcitonin 0.19 (0-0.5) ng/ml Administered Medications Discontinued Medications Ceftriaxone Sodium (Rocephin) 2,000 mg in 50 mls @ 100 mls/hr IV NOW STA Stop: 10/01/25 14:49 Last Admin: 10/01/25 16:35 Dose: 100 mls/hr Documented By: alissa Daptomycin 575 mg/ Syringe 11.5 mls @ 5.75 mls/min IV NOW ONE; Protocol Stop: 10/01/25 14:57 Last Admin: 10/01/25 16:35 Dose: 5.75 mls/min Documented By: alissa Discharge Plan Visit Data Chief Complaint: Wound Stated Complaint: WOUND ED Provider: Jonathan Munoz Discharge Problem: Deep postoperative wound infection, Postoperative wound dehiscence, Anemia, Leukocytosis Condition: Fair Forms Stand Alone Forms: [facility] Prescriptions Prescriptions: No Action amlodipine 10 mg tablet 10 mg PO QAM aspirin [Adult Low Dose Aspirin] 81 mg tablet,delayed release (DR/EC) 81 mg PO HS potassium chloride 20 mEq tablet extended release 20 meq PO QAM Qty: 90 1RF metformin 1,000 mg tablet 1,000 mg PO BID Qty: 180 1RF folic acid 1 mg tablet 1 mg PO QAM docusate sodium [Stool Softener] 100 mg capsule 100 mg PO HS cefazolin 2 gram recon soln 2 g IV Q8H 35 Days Rx Instructions: Cefazolin 2 g IV every 8 hours via PICC line start 09/26/25 until 10/11/2025 @ 23:59 ferrous sulfate 325 mg (65 mg iron) tablet 325 mg PO QAM Qty: 0 0RF amiodarone 200 mg tablet 200 mg PO QAM baclofen 10 mg tablet 10 mg PO AMHS furosemide [Lasix] 20 mg tablet 20 mg PO QAM finasteride 5 mg tablet 5 mg PO QAM Eliquis 5 mg tablet 5 mg PO AMHS hydrocodone-acetaminophen 5-325 mg tablet 1 tab PO Q6H MDD APAP 3g PRN (Reason: pain 9-10) Gemtesa 75 mg tablet 75 mg PO QAM pantoprazole 40 mg tablet,delayed release (DR/EC) 40 mg PO QAM metoprolol succinate 25 mg tablet extended release 24 hr 25 mg PO QAM losartan 100 mg tablet 100 mg PO HS multivitamin Tablet 1 tab PO HS simvastatin 20 mg tablet 20 mg PO HS tamsulosin 0.4 mg Capsule 0.4 mg PO QAM acetaminophen 325 mg Tablet 650 mg PO Q6 MDD 3g PRN (Reason: temp>100) acetaminophen 325 mg Tablet 650 mg PO Q6 MDD 3g PRN (Reason: pain 1-8) acetaminophen 500 mg Tablet 500 mg PO TID protein supplement Liquid 1 ea PO BID Rx Instructions: 30 ml every day and evening shift magnesium oxide 400 mg (241.3 mg magnesium) Tablet 400 mg PO QAM Qty: 30 0RF Referrals Referrals: Ana Lindo DO [Primary Care Provider] - Discharge Problem: Postoperative wound dehiscence Qualifiers: Encounter type: initial encounter Qualified Code(s): T81.31XA - Disruption of external operation (surgical) wound, not elsewhere classified, initial encounter Anemia Qualifiers: Anemia type: unspecified type Qualified Code(s): D64.9 - Anemia, unspecified Leukocytosis Qualifiers: Leukocytosis type: unspecified Qualified Code(s): D72.829 - Elevated white blood cell count, unspecified
[2025-10-01 14:38] LABS: Hematocrit (blood only) 31.2 % (42.0-52.0); Hemoglobin 9.9 g/dL (14.0-18.0); Immature Granulocytes # (auto) 0.27 K/uL (0.01-0.20); Immature Granulocytes % (auto) 1.7 %; Mean Corpuscular Hemoglobin 26.6 pg (25.0-34.0); Mean Corpuscular Volume 83.9 fL (80.0-100.0); Platelet Count 511 K/uL (130-400); RDW Standard Deviation 46.7 fL (36.4-46.3); Red Blood Count 3.72 M/uL (4.70-6.10); White Blood Count 15.44 K/ul (4.8-10.8)
[2025-10-01 14:59] LABS: Anion Gap 9 (3-11); Blood Urea Nitrogen 19 mg/dl (6-23); Calcium 9.5 mg/dl (8.6-10.3); Carbon Dioxide 29 mmol/L (21-32); Chloride 98 mmol/L (98-107); Creatinine Clr Calc Pharmacy 65.2 ml/min; Glucose 141 mg/dl (70-99(Fasting)); Potassium 4.2 mmol/L (3.5-5.1); Sodium 136 mmol/L (136-145)
[2025-10-01 15:08] LABS: Alanine Aminotransferase < 3 U/L (7-52); Albumin Globulin Ratio 0.8 (0.9-2); Albumin Level 3.2 gm/dl (3.4-5.0); Alkaline Phosphatase 105 U/L (34-104); Bilirubin,Total 0.3 mg/dl (0.2-1.0); Globulin 4.2 gm/dl (2.5-4.0); Lipase 4 U/L (11-82); Total Protein 7.4 gm/dl (6.0-8.3)
--- NOTE | 2025-10-01 15:27 | Orthopedic Consultation ---
Date of Service October 01, 2025 Assessment & Plan (1) S/P lumbar laminectomy: (2) Wound dehiscence, surgical: (3) Ambulatory dysfunction: (4) Diabetic peripheral neuropathy associated with type 2 diabetes mellitus: Plan POD#11 s/p Lumbar I&D, L2 laminectomy, dural repair (DOS: 09/20/25) * Patient being admitted to the hospitalist service. * Discussed with the patient and his that his case will be further discussed with Dr. Hensley after he has had a chance to review his wound images. They understand that we are going to either continue to follow the wound as is and see about placing another incisional VAC and consult to wound care versus taking the patient back to the operating room for further wound exploration and placement of a more formal wound VAC without closure. * Recommend holding Eliquis anticoagulation at this point in case the patient does need to return to the OR later this week. * No plans for immediate surgery; bilateral lower extremity function is overall intact with no saddle anesthesia or concerns for cauda equina syndrome, so patient may eat/drink. * Weight bearing status: As tolerated * Strongly encourage continued PT and ambulation. Patient needs to increase activity if he is going to be able to attempt to regain his conditioning and strength in hopes of return to prior level of functioning. * Disposition: Pending * History of Present Illness Reason for Consultation: lumbar incision/wound concern Requesting Physician: . Active Problems: POD#11 s/p Lumbar I&D, L2 laminectomy, dural repair (DOS: 09/20/25). 85 y/o male s/p above procedure, also 08/31 L3-5 laminectomy/decompression. Patient was discharged from the hospital on 09/26/2025 to [facility] with a portable incision (Prevena) VAC in place and functioning. However, Dr. Hensley was contacted by the staff there at the rehab facility on Wednesday, 09/28 and informed that there was no wound care team present at that facility that would be able to continue to care for the wound VAC. This was despite the charge nurse at [facility] informing case management here at the hospital that they would be able to care for the wound VAC prior to the patient being sent there. Nonetheless, the wound VAC was discontinued and a dressing of gauze and bordered occlusive type bandage was placed. The wound was seemingly draining quite a bit, reportedly bloody, and the staff at the rehab facility was concerned, thus he was sent back to the emergency department for further evaluation. [facility] was consulted for further management. Upon being seen today, the patient continues to complain of some low back pain, but he does not mention any particular pain or radiating pain/paresthesias into the lower extremities. He is still a bit confused today, which seems to be his baseline lately. Patient states that his legs have "gone to shit" over the past 2 days. However, he does seem to be repeating this sort of statement that he had been doing okay, and then all of a sudden started to deteriorate. Patient's says that he has been trying to work with therapy, but it has been difficult. She does say that he has been refusing to eat the food at the rehab facility since he did not like it. She says she knew that he needed to eat, so she says that she was "cheating" and taking him in [employer] Bars and peanut butt er and jelly sandwiches. He does have the baseline neuropathy of b/l lower legs and feet/toes. Allergies Allergy/AdvReac Type Severity Reaction Status Date / Time amoxicillin Allergy Intermediate lip Verified 08/27/25 20:40 swelling clavulanic acid Allergy Intermediate lip Verified 08/27/25 20:40 swelling Sulfa (Sulfonamide Allergy Intermediate lip Verified 08/27/25 20:40 Antibiotics) swelling VINCE Inhibitors Allergy Unknown unknown Verified 08/27/25 20:40 clarithromycin AdvReac Intermediate GI upset Verified 08/27/25 20:40 Home Medications Medication Instructions Recorded Confirmed Type aspirin 81 mg tablet,delayed 81 mg PO HS 06/29/18 10/01/25 History release (Adult Low Dose Aspirin) ktafszgzhlvz-dgmuiquk-vgxxzp tablet 1 tab PO QPM 09/05/20 08/27/25 History docusate sodium 100 mg capsule 100 mg PO HS 01/21/23 10/01/25 History (Stool Softener) amlodipine 10 mg tablet 10 mg PO QAM 09/21/23 10/01/25 History folic acid 1 mg tablet 1 mg PO QAM 03/07/24 10/01/25 History duloxetine 60 mg capsule,delayed 60 mg PO DAILY 07/31/24 08/27/25 History release duloxetine 30 mg capsule,delayed 30 mg PO DAILY 02/19/25 08/27/25 History release alfuzosin 10 mg tablet,extended 10 mg PO DAILY #90 tabs 02/27/25 08/27/25 Rx release 24 hr (Uroxatral) magnesium oxide 400 mg (241.3 mg 400 mg PO QAM #30 tabs 04/29/25 08/27/25 Rx magnesium) tablet metoprolol succinate 25 mg 25 mg PO DAILY #30 tabs 05/23/25 08/27/25 Rx tablet,extended release 24 hr pantoprazole 40 mg tablet,delayed 40 mg PO DAILY #90 tabs 06/21/25 08/27/25 Rx release potassium chloride 20 mEq 20 meq PO QAM #90 tabs 07/03/25 08/27/25 Rx tablet,extended release simvastatin 20 mg tablet 20 mg PO QAM #90 tabs 08/02/25 08/27/25 Rx losartan 100 mg tablet 100 mg PO QPM #90 tabs 08/30/25 Rx acetaminophen 500 mg tablet 500 mg PO TID #30 tabs 09/07/25 Rx (Tylenol Extra Strength) cefazolin 2 gram intravenous 2 g IV Q8H MSSA bacteremia 5 weeks 09/07/25 10/01/25 Rx solution metformin 1,000 mg tablet 1,000 mg PO BID #180 tabs 09/20/25 Rx ferrous sulfate 325 mg (65 mg 325 mg PO QAM #0 tabs 09/25/25 10/01/25 Rx iron) tablet amiodarone 200 mg tablet 200 mg PO QAM 10/01/25 10/01/25 History apixaban 5 mg tablet (Eliquis) 5 mg PO AMHS 10/01/25 10/01/25 History baclofen 10 mg tablet 10 mg PO AMHS 10/01/25 10/01/25 History finasteride 5 mg tablet 5 mg PO QAM 10/01/25 10/01/25 History furosemide 20 mg tablet (Lasix) 20 mg PO QAM 10/01/25 10/01/25 History hydrocodone 5 mg-acetaminophen 325 1 tab PO Q6H PRN pain 9-10 10/01/25 10/01/25 History mg tablet vibegron 75 mg tablet (Gemtesa) 75 mg PO QAM 12/01/25 12/01/25 History Past Med/Surg History Problem List (Updated 09/22/25 @ 16:20 by Mitchell Mistry PA-C) Acute blood loss anemia Constipation Bradycardia (Acute) Anemia (Acute) Wound dehiscence, surgical (Acute) S/P lumbar laminectomy (Acute) Lumbar radiculopathy, acute History of reverse total replacement of right shoulder joint MSSA bacteremia (Acute) Lumbar discitis Ambulatory dysfunction (Acute) Psoriatic arthritis Microscopic hematuria Diabetic ulcer of left foot (Acute) Diabetic ulcer of right foot (Acute) Diabetic ulcer of toe of right foot, limited to breakdown of skin (Acute) Urinary incontinence History of DVT (deep vein thrombosis) Hiatal hernia GERD (gastroesophageal reflux disease) Well controlled, stable Cervical facet joint syndrome Cervical dystonia Post-laminectomy syndrome Posterior cervical laminectomy and fusion C3-6 Thrombocytopenia TAYLOR (obstructive sleep apnea) Could not tolerate BIPAP Diabetic peripheral neuropathy associated with type 2 diabetes mellitus Osteoarthritis History of elevated prostate specific antigen (PSA) Diabetic nephropathy associated with type 2 diabetes mellitus Venous insufficiency (chronic) (peripheral) (Chronic) Dupuytren's contracture of left hand Nocturnal hypoxemia Depression (Chronic) Hypertension controlled, stable per pt Hyperlipidemia Chronic steroid use Psoriatic arthritis Diabetes mellitus, type 2 (Chronic) NIDDM - controlled Psoriatic arthropathy Does use prednisone- possibly weaning off prior to surgery Hepatic steatosis 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 History of compression fracture of spine 2019, had cervical laminectomy 04/2020, no recent issues Chronic anemia Chronic/stable, PCP monitoring 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) Medical History Paroxysmal atrial flutter Anemia Loss of protective sensation of skin of deformed foot Dizziness Anemia Chronic pain Tachycardia COVID-19 Hyperbilirubinemia Venous stasis ulcers Trigger finger of right hand 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 S/P arthroscopy of shoulder (01/2016) Left S/P left knee arthroscopy (10/2015) H/O elbow surgery R/L S/P hammer toe correction (11/2013) arthrodesis R toe Status post carpal tunnel release of both wrists H/O bilateral cataract extraction History of tonsillectomy S/P laparoscopic cholecystectomy (07/2018) Hx of difficult intubation - History of difficult intubation in 2007 at [facility]. Per record review they were unable to intubate on 3 attempts. Fast track LMA were unsuccessful. Were able to mask vent with 2 people. Intubated with nasal fiberoptic. - Anesthesia records from 2017 lap adelita showed Grade 1 view with Glidescope #4, smooth intubation - Right shoulder arthroscopy, RCR (12/11/21): LMA#5 placed without difficulty + PNB at [facility]. Family History Mother Cardiac disorder Myocardial infarction Aunt Family history of diabetes mellitus Uncle Family history of diabetes mellitus Other No family history of adverse response to anesthesia Denies family history of Ovarian cancer Prostate cancer Breast cancer Colorectal cancer Social History Smoking Status: Former smoker Tobacco Type: Cigarettes Age Started Using Tobacco: 14; Age Quit Using Tobacco: 44; packs per day: 2; Second Hand Exposure: No; Do You Dip or Chew Tobacco: No; Hx Alcohol Use: No Hx Substance Use: No Preferred Language: Azerbaijani Communication Ability: Effective Visual Impairment: Limited Hearing Ability: Hard of Hearing Party Host/Hostess Required: No Beliefs That Will Affect Care: None marital status: Current Living Situation: Spouse Current Living Situation Comment: lives with current occupational status: retired How many Children do You have: 4 How many Children do You have Comment: one son are local and able to assist with care as needed. Other children live further away. Feels Safe at Home: Yes Diet: diabetic caffeine: Yes during the past year weight has: remained stable Dental Care, Regularly: Yes Physical Activity Frequency: Daily Physical Activity Frequency Comment: very active around house Seatbelt Use: always Sunscreen Use: Yes Assistive Devices: Cane and Walker Review of Systems All systems reviewed & are unremarkable except as noted in HPI & below. Physical Exam Musculoskeletal: Incision VAC not present. Incision overall intact with nylon sutures noted. Some proteinaceous granulation tissue is noted. No discrete fluctuance is palpated but there is some bogginess to the surrounding tissues. No surrounding erythema noted. There is mild superficial wound opening towards the inferior one third of the incision with bloody active drainage noted. The current dressing was saturated with blood. Bilateral active hip flexion, knee flexion, knee extension, ankle plantarflexion, ankle dorsiflexion, and toe extension is intact and without pain during testing. Sensation intact plantar/dorsal foot bilaterally. Brisk capillary refill. Distal light touch sensation diminished at baseline. Results & Data Results & Data Laboratory Results Laboratory Results - last 24 hr 10/01/25 14:16 WBC 15.44 H RBC 3.72 L Hgb 9.9 L Hct 31.2 L MCV 83.9 MCH 26.6 MCHC 31.7 L RDW Std Deviation 46.7 H RDW Coeff of Caren 15.3 H Plt Count 511 H MPV 9.7 Immature Gran % (Auto) 1.7 Neut % (Auto) 77.3 Lymph % (Auto) 10.9 Dare % (Auto) 8.8 Eos % (Auto) 0.8 Baso % (Auto) 0.5 Neut # (Auto) 11.92 H Lymph # (Auto) 1.69 Dare # (Auto) 1.36 H Eos # (Auto) 0.13 Baso # (Auto) 0.07 Immature Gran # (Auto) 0.27 H Sodium 136 Potassium 4.2 Chloride 98 Carbon Dioxide 29 Anion Gap 9 BUN 19 Creatinine 0.78 Est Cr Clr Drug Dosing 65.2 eGFR 86.31 BUN/Creatinine Ratio 24.4 H Glucose 141 H Calcium 9.5 Total Bilirubin 0.3 AST 12 L ALT < 3 L Alkaline Phosphatase 105 H Total Protein 7.4 Albumin 3.2 L Globulin 4.2 H Albumin/Globulin Ratio 0.8 L Lipase 4 L Procalcitonin 0.19 Diagnostic Findings . PG Care Time/CCT Total # of Minutes Spent Total Time Spent with Patient: Total time spent is greater than 50% in coordination of care (as documented) at patient's floor/unit and/or counseling patient: Coding Level of Care Code 63726 IN/OBS CONSULT LVL 4,60M Diagnoses S/P lumbar laminectomy Z98.890 Postoperative wound dehiscence, initial encounter T81.31XA Encounter type: initial encounter Ambulatory dysfunction R26.2 Diabetic peripheral neuropathy associated with type 2 diabetes mellitus E11.42 (2) Wound dehiscence, surgical Encounter type: initial encounter Qualified Code(s): T81.31XA - Disruption of external operation (surgical) wound, not elsewhere classified, initial encounter
--- NOTE | 2025-10-01 16:13 | History & Physical Report ---
Date of Service October 01, 2025 Assessment & Plan (1) Wound dehiscence, surgical: (2) S/P lumbar laminectomy: (3) MSSA bacteremia: (4) Lumbar discitis: (5) Ambulatory dysfunction: (6) Hypertension: (7) Hyperlipidemia: (8) Chronic anemia: (9) BPH with obstruction/lower urinary tract symptoms: (10) Paroxysmal atrial flutter: Plan 85 y/o male with recent h/o MSSA bacteremia and discitis, presents with recurrent wound dehiscence: #Wound dehiscence // #MSSA Bacteremia: Wound dehiscence without overt signs of progressive infection - suspect poor wound healing largely a function of malnutrition, immobility. Repeat blood cultures drawn. Continue IV Cefazolin at this time, repeat AM CBC and inflammatory markers - if trending upward or if repeat BCx demonstrate resistance to Cefazolin, will expand abx coverage Ortho spine consulted, appreciate recs - hold Eliquis for potential OR in coming days PT/OT eval and treat Consult wound care nurse, appreciate recs Diane PRN for pain control #H/O T2DM: Last A1c 5.1% HTN: continue amlodipine, losartan, lasix #pAF: continue metoprolol hold Eliquis #HLD: continue statin #Depression: continue Cymbalta #BPH: continue alfuzosin, finasteride, vibegron Dispo: Admit med-surg VTE ppx: SCDs - Eliquis held Diet: HH Full Code History of Present Illness Primary Care Provider: Ana Lindo, DO 85 y/o male with recent h/o MSSA bacteremia and discitis, presents with recurrent wound dehiscence. Patient underwent lumbar laminectomy for evacuation of spinal epidural abscess 08/31 and was started on extended course of IV Cefazolin. Admitted again 09/18 for postop infection that required washout. Patient was discharged to rehab facility with wound vac. Patient states that wound site pain has been progressively worsening over past few days. Wound vac discontinued on Wednesday, has since had copious bloody drainage. Denies purulence, fever, or chills. Denies red flag sx. Per , patient has been largely bedbound, has not been able to participate much in PT due to weakness/deconditioning. Current pain level 4/10. Allergies Allergy/AdvReac Type Severity Reaction Status Date / Time amoxicillin Allergy Intermediate lip Verified 08/27/25 20:40 swelling clavulanic acid Allergy Intermediate lip Verified 08/27/25 20:40 swelling Sulfa (Sulfonamide Allergy Intermediate lip Verified 08/27/25 20:40 Antibiotics) swelling VINCE Inhibitors Allergy Unknown unknown Verified 08/27/25 20:40 clarithromycin AdvReac Intermediate GI upset Verified 08/27/25 20:40 Home Medications Medication Instructions Recorded Confirmed Type aspirin 81 mg tablet,delayed 81 mg PO HS 06/29/18 10/01/25 History release (Adult Low Dose Aspirin) docusate sodium 100 mg capsule 100 mg PO HS 01/21/23 10/01/25 History (Stool Softener) amlodipine 10 mg tablet 10 mg PO QAM 09/21/23 10/01/25 History folic acid 1 mg tablet 1 mg PO QAM 03/07/24 10/01/25 History magnesium oxide 400 mg (241.3 mg 400 mg PO QAM #30 tabs 04/29/25 10/01/25 Rx magnesium) tablet potassium chloride 20 mEq 20 meq PO QAM #90 tabs 07/03/25 10/01/25 Rx tablet,extended release cefazolin 2 gram intravenous 2 g IV Q8H MSSA bacteremia 5 weeks 09/07/25 10/01/25 Rx solution metformin 1,000 mg tablet 1,000 mg PO BID #180 tabs 09/20/25 10/01/25 Rx ferrous sulfate 325 mg (65 mg 325 mg PO QAM #0 tabs 09/25/25 10/01/25 Rx iron) tablet acetaminophen 325 mg tablet 650 mg PO Q6 PRN pain 1-8 10/01/25 10/01/25 History acetaminophen 325 mg tablet 650 mg PO Q6 PRN temp>100 10/01/25 10/01/25 History acetaminophen 500 mg tablet 500 mg PO TID 10/01/25 10/01/25 History amiodarone 200 mg tablet 200 mg PO QAM 10/01/25 10/01/25 History apixaban 5 mg tablet (Eliquis) 5 mg PO AMHS 10/01/25 10/01/25 History baclofen 10 mg tablet 10 mg PO AMHS 10/01/25 10/01/25 History finasteride 5 mg tablet 5 mg PO QAM 10/01/25 10/01/25 History furosemide 20 mg tablet (Lasix) 20 mg PO QAM 10/01/25 10/01/25 History hydrocodone 5 mg-acetaminophen 325 1 tab PO Q6H PRN pain 9-10 10/01/25 10/01/25 History mg tablet losartan 100 mg tablet 100 mg PO HS 10/01/25 10/01/25 History metoprolol succinate 25 mg 25 mg PO QAM 10/01/25 10/01/25 History tablet,extended release 24 hr multivitamin 1 tab PO HS 10/01/25 10/01/25 History pantoprazole 40 mg tablet,delayed 40 mg PO QAM 10/01/25 10/01/25 History release protein supplement 1 ea PO BID 10/01/25 10/01/25 History simvastatin 20 mg tablet 20 mg PO HS 10/01/25 10/01/25 History tamsulosin 0.4 mg capsule 0.4 mg PO QAM 10/01/25 10/01/25 History vibegron 75 mg tablet (Gemtesa) 75 mg PO QAM 10/01/25 10/01/25 History Past Med/Surg History Problem List (Updated 10/01/25 @ 17:24 by Jonathan Munoz DO) Leukocytosis (Acute) Anemia (Acute) Postoperative wound dehiscence (Acute) Deep postoperative wound infection (Acute) Acute blood loss anemia Constipation Bradycardia (Acute) Anemia (Acute) Wound dehiscence, surgical (Acute) S/P lumbar laminectomy (Acute) Lumbar radiculopathy, acute History of reverse total replacement of right shoulder joint MSSA bacteremia (Acute) Lumbar discitis Ambulatory dysfunction (Acute) Psoriatic arthritis Microscopic hematuria Diabetic ulcer of left foot (Acute) Diabetic ulcer of right foot (Acute) Diabetic ulcer of toe of right foot, limited to breakdown of skin (Acute) Urinary incontinence History of DVT (deep vein thrombosis) Hiatal hernia GERD (gastroesophageal reflux disease) Well controlled, stable Cervical facet joint syndrome Cervical dystonia Post-laminectomy syndrome Posterior cervical laminectomy and fusion C3-6 Thrombocytopenia TAYLOR (obstructive sleep apnea) Could not tolerate BIPAP Diabetic peripheral neuropathy associated with type 2 diabetes mellitus Osteoarthritis History of elevated prostate specific antigen (PSA) Diabetic nephropathy associated with type 2 diabetes mellitus Venous insufficiency (chronic) (peripheral) (Chronic) Dupuytren's contracture of left hand Nocturnal hypoxemia Depression (Chronic) Hypertension controlled, stable per pt Hyperlipidemia Chronic steroid use Psoriatic arthritis Diabetes mellitus, type 2 (Chronic) NIDDM - controlled Psoriatic arthropathy Does use prednisone- possibly weaning off prior to surgery Hepatic steatosis 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 History of compression fracture of spine 2019, had cervical laminectomy 04/2020, no recent issues Chronic anemia Chronic/stable, PCP monitoring 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) Medical History Paroxysmal atrial flutter Anemia Loss of protective sensation of skin of deformed foot Dizziness Anemia Chronic pain Tachycardia COVID-19 Hyperbilirubinemia Venous stasis ulcers Trigger finger of right hand 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 S/P arthroscopy of shoulder (01/2016) Left S/P left knee arthroscopy (10/2015) H/O elbow surgery R/L S/P hammer toe correction (11/2013) arthrodesis R toe Status post carpal tunnel release of both wrists H/O bilateral cataract extraction History of tonsillectomy S/P laparoscopic cholecystectomy (07/2018) Hx of difficult intubation - History of difficult intubation in 2007 at [facility]. Per record review they were unable to intubate on 3 attempts. Fast track LMA were unsuccessful. Were able to mask vent with 2 people. Intubated with nasal fiberoptic. - Anesthesia records from 2018 lap adelita showed Grade 1 view with Glidescope #4, smooth intubation - Right shoulder arthroscopy, RCR (12/11/21): LMA#5 placed without difficulty + PNB at [facility]. Family History Mother Cardiac disorder Myocardial infarction Aunt Family history of diabetes mellitus Uncle Family history of diabetes mellitus Other No family history of adverse response to anesthesia Denies family history of Ovarian cancer Prostate cancer Breast cancer Colorectal cancer Social History Smoking Status: Former smoker Tobacco Type: Cigarettes Age Started Using Tobacco: 14; Age Quit Using Tobacco: 44; packs per day: 2; Second Hand Exposure: No; Do You Dip or Chew Tobacco: No; Hx Alcohol Use: No Hx Substance Use: No Preferred Language: Tajik Communication Ability: Effective Visual Impairment: Limited Hearing Ability: Hard of Hearing 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 Other children live further away. Feels Safe at Home: Yes Diet: diabetic caffeine: Yes during the past year weight has: remained stable Dental Care, Regularly: Yes Physical Activity Frequency: Daily Physical Activity Frequency Comment: very active around house Seatbelt Use: always Sunscreen Use: Yes Assistive Devices: Cane and Walker Review of Systems Review of Systems: as per HPI Physical Exam Physical Exam: Constitutional: no acute distress HEENT: NCAT, no conjunctival injection CV: extremities well-perfused, no LE edema Resp: no increased work of breathing GI: nondistended MSK: no gross deformities, hip flexion strength 4/5 bilaterally Skin: lumbar wound bed covered with bloody gauze and covered with clean transparent dressing. Ortho had already examined and photographed wound bed, therefore did not reexpose wound bed. Neuro: alert, oriented, decreased sensation to fine touch in bilateral LEs below knee level Results & Data Results & Data Vital Signs (Past 12 Hours) Vital Signs Temp Pulse Pulse Resp BP BP Pulse Ox 10/01/25 14:18 59 L 16 94 10/01/25 14:18 59 L 16 117/66 94 10/01/25 14:18 36.7 C 59 L 16 117/66 94 10/01/25 14:11 60 O2 Del Method 10/01/25 14:18 Room Air 10/01/25 14:18 Room Air 10/01/25 14:18 Room Air 10/01/25 14:11 Supervising Physician Co-Signing Physician Notes I personally examined the patient and verified all galindo points of history and exam, discussed case, and agree with decision making with Dr Morrison back wound. Poor appetite. Vitals noted, in general he is awake and alert somewhat hard of hearing, fatigued. Breathing unlabored no accessory muscle use good effort. Skin without rashes pallor or icterus. Back wound had just been examined by orthopedics team, allowed patient to rest in this regard. Ongoing back woundcontinue current antibiotics, follow. Does not sound like there is new infection, already on ongoing coverage. Follow cultures and adjust antibiotics accordingly. I am more concerned about deconditioning and malnutrition contributing to poor healing at this pointexplained. Will ask dietitian to see. PT/OT ongoing eval and treat. Chronically anticoagulated, Eliquis currently held. Resident Activity Tracking Resident Involvement: Resident Care Provided Care Provided: Adult Hospital Medicine (1) Wound dehiscence, surgical Encounter type: initial encounter Qualified Code(s): T81.31XA - Disruption of external operation (surgical) wound, not elsewhere classified, initial encounter (6) Hypertension Hypertension type: primary hypertension Qualified Code(s): I10 - Essential (primary) hypertension (7) Hyperlipidemia Hyperlipidemia type: unspecified Qualified Code(s): E78.5 - Hyperlipidemia, unspecified
[2025-10-01] MEDS: DAPTOmycin 575 MG in SYRINGE 0 ML IV ONE (16:35)
[2025-10-01] MEDS: cefTRIAXone SODIUM 2,000 MG/50 ML BAG IV STA (16:35)
--- NOTE | 2025-10-01 17:31 | Billing Data ---
Date of Service October 01, 2025 Coding Level of Care Code 06314 INT INP/OBS CARE
[2025-10-01] MEDS ORDERED: ACETAMINOPHEN 500 MG TAB PO PRN (18:10)
[2025-10-01] MEDS ORDERED: ONDANSETRON INJ 2 MG/ML 2 ML VIAL IV PRN (18:10)
[2025-10-01] MEDS: DOCUSATE SODIUM 100 MG CAP PO SCH (21:02)
[2025-10-01] MEDS: POLYETHYLENE (MIRALAX) 17 GM PACK PO PRN (21:02)
[2025-10-01] MEDS: BACLOFEN 10 MG TAB PO SCH (21:03)
[2025-10-01] MEDS: LOSARTAN POTASSIUM 50 MG TAB PO SCH (21:03)
[2025-10-01] MEDS: HYDROCODONE/ACETAMOPHEN 5/325MG TAB PO PRN (21:52)
[2025-10-02 06:40] LABS: Hematocrit (blood only) 27.9 % (42.0-52.0); Hemoglobin 9.0 g/dL (14.0-18.0); Immature Granulocytes # (auto) 0.21 K/uL (0.01-0.20); Immature Granulocytes % (auto) 1.8 %; Mean Corpuscular Hemoglobin 26.7 pg (25.0-34.0); Mean Corpuscular Volume 82.8 fL (80.0-100.0); Platelet Count 416 K/uL (130-400); RDW Standard Deviation 46.3 fL (36.4-46.3); Red Blood Count 3.37 M/uL (4.70-6.10); White Blood Count 11.57 K/ul (4.8-10.8)
[2025-10-02 07:12] LABS: Anion Gap 8.0 (3-11); Blood Urea Nitrogen 17.0 mg/dl (6-23); Calcium 9.0 mg/dl (8.6-10.3); Carbon Dioxide 30.0 mmol/L (21-32); Chloride 99.0 mmol/L (98-107); Creatinine Clr Calc Pharmacy 79.5 ml/min; Glucose 122.0 mg/dl (70-99(Fasting)); Potassium 3.8 mmol/L (3.5-5.1); Sodium 137.0 mmol/L (136-145)
[2025-10-02] MEDS: MAGNESIUM OXIDE 400 MG TAB PO SCH (08:44)
[2025-10-02] MEDS: FUROSEMIDE 20 MG TAB PO SCH (08:44)
[2025-10-02] MEDS: VIBEGRON 75 MG TAB PO SCH (08:44)
[2025-10-02] MEDS: SIMVASTATIN 20 MG TAB PO SCH (08:44)
[2025-10-02] MEDS: AMIODARONE 200 MG TAB PO SCH (08:44)
[2025-10-02] MEDS: TAMSULOSIN HCL 0.4 MG CAP PO SCH (08:44)
[2025-10-02] MEDS: METOPROLOL SUCC 25MG EXT REL TAB PO SCH (08:44)
[2025-10-02] MEDS: FOLIC ACID 1 MG TAB PO SCH (08:44)
[2025-10-02] MEDS: FINASTERIDE 5 MG TAB PO SCH (08:45)
[2025-10-02] MEDS: FERROUS SULFATE 325 MG TAB PO SCH (08:45)
[2025-10-02] MEDS: POTASSIUM CHLORIDE CRTAB 20 MEQ TABCR PO SCH (08:49)
--- NOTE | 2025-10-02 09:05 | Orthopedic Progress Note ---
Date of Service October 02, 2025 Assessment & Plan (1) S/P lumbar laminectomy: (2) Deep postoperative wound infection: Plan * Continue Current Treatment * Evaluated bedside with Dr Hensley * Wound care consult pending, possibly replace incision VAC * Will tentatively plan for formal OR wound I&D and VAC placement tomorrow 10/03 * NPO midnight * Weight bearing status: activity as tolerated * Nutrition services consult * Daily treatment: Physical Therapy/ Occupational Therapy per protocol * Pain control * Please hold Eliquis * Disposition: TBD * Remainder care per primary team * Will continue to follow Subjective .Active Problems: S/p Lumbar I&D, L2 laminectomy, dural repair (DOS: 09/20/25) POD 12 85 y/o male s/p Lumbar I&D, L2 laminectomy, dural repair (DOS: 09/20/25). Returns to hospital with wound drainage and wound healing concerns. Currently has dry dressing in place. Reported that he has had very poor oral intake as he did not like the food at the facility. Denies fever/chills, chest pain/SOB, nausea/vomiting. Otherwise no complaints. Review of Systems All systems reviewed & are unremarkable except as noted in HPI & below. Physical Exam . * General: Alert and oriented, no acute distress * Constitutional: well-developed, well-nourished. * Respiratory: Normal respiratory effort, no distress * Gastrointestinal: No tenderness to palpation, no rigidity or guarding. * Skin: No rash or lesion. * Neurologic: Grossly normal * Musculoskeletal: Incision VAC not present. Incision overall intact with nylon sutures noted. Some proteinaceous granulation tissue is noted. No discrete fluctuance is palpated but there is some bogginess to the surrounding tissues. No surrounding erythema noted. There is mild superficial wound opening towards the inferior one third of the incision with bloody active drainage noted. Bilateral active hip flexion, knee flexion, knee extension, ankle plantarflexion, ankle dorsiflexion, and toe extension is intact and without pain during testing. Sensation intact plantar/dorsal foot bilaterally. Brisk capillary refill. Distal light touch sensation diminished at baseline consistent with his baseline neuropathy. Results & Data Results & Data Laboratory Results . Diagnostic Findings . PG Care Time/CCT Total # of Minutes Spent Total Time Spent with Patient: Total time spent is greater than 50% in coordination of care (as documented) at patient's floor/unit and/or counseling patient: Coding Level of Care Code 04375 Post Operative Follow-Up Diagnoses S/P lumbar laminectomy Z98.890 Deep postoperative wound infection T81.42XA
[2025-10-02] MEDS: cefTRIAXone SODIUM 2,000 MG/50 ML BAG IV SCH (12:27)
[2025-10-02] MEDS: CEROVITE ADV FORMULA TAB PO SCH (12:27)
[2025-10-02] MEDS: DAPTOmycin 575 MG in SYRINGE 0 ML IV SCH (12:27)
[2025-10-02 13:22] LABS: Appearance Urine Cloudy (Clear); Bacteria Urine Automated None Seen (None Seen); Cast Urine Automated 0-2 /lpf (0-2); Epithelial Cell Urine Auto 0-2 /hpf (0-2); Glucose Urine UA Negative (Negative); WBC Urine Automated 0-5 /hpf (0-5)
--- NOTE | 2025-10-02 17:15 | Hospitalist Progress Note ---
Date of Service October 02, 2025 Assessment & Plan (1) Wound dehiscence, surgical: (2) S/P lumbar laminectomy: (3) MSSA bacteremia: (4) Lumbar discitis: Plan 85 y/o male with recent h/o MSSA bacteremia and discitis, presents with recurrent wound dehiscence, leg recent admission admission for such and to which patient was discharged to SNF. #Wound dehiscence/MSSA Bacteremia: - Wound dehiscence - suspect poor wound healing largely a function of malnutrition, immobility. Did have elevated CRP and WBC on arrival, received daptomycin and ceftriaxone in the ED. CRP and leukocytosis have improved. Given that patient is still on the IV Ancef for his recent bacteremia, we will continue expanded coverage with daptomycin and ceftriaxone and await new IntraOp cultures Blood cultures: no growth at 24 hours Ortho spine consulted - Mayra held, plan for OR / Q2H turns, encourage OOB RD consulted - diet liberalized, MVI added PT/OT Consult wound care nurse, appreciate selvin Contreras PRN for pain control #H/O T2DM: Last A1c 5.1% No SSI indicated at this time, can continue BSG checks to ensure in range to help wound healing HTN: continue amlodipine, losartan, lasix #pAF: continue metoprolol hold Eliquis #HLD: continue statin #Depression: continue Cymbalta #BPH: continue alfuzosin, finasteride, vibegron #Chronic anemia-hgb 8-10 over last few months. Borderline microcytic. Is on anticoagulation but no obvious bleeding. Did have recent back surgery so had some blood loss then. Iron studies in 05/2025 show significant iron deficiency -check Fe studies, B12, folate in AM and replace as needed -follow CBC -may need transfusion post-op if hgb<7 or between 7-8 with hypotension or orthostasis Dispo: continued inpatient stay, OR tomorrow VTE ppx: SCDs - Eliquis held Admission and Anticipated Discharge Date Admission Date: October 01, 2025 Supervising Physician Co-Signing Physician Notes PA Supervision Note: I did not personally see or examine the patient today, but I verified all galindo points of MARY Stewart's assessment and plan with the following exceptions/additions: None Subjective patient seen lying in bed, denies pain at rest but reports pain gets better when he tries to move. He has low interest in food, despite talking about the need for protein intake for wound healing. We also discussed the importance of offloading the pressure on the wound. He then asked how is he going to get better and I explained to him that there is no magical pill to make this wound heal. Denies chest pain or shortness of breath Review of Systems Review of Systems: All systems reviewed & are unremarkable except as noted in Subjective Physical Exam Physical Exam: General: NAD, VS as above, lying in bed, appears comfortable Resp: normal respiratory effort, lungs clear to auscultation anteriorly, CV: RRR, no murmur, Abd: normal bowel sounds, non tender, soft Extremities: Moves all extremities, able to wiggle toes bilaterally and lift bilateral legs off the bed : Condom catheter in place Neuro: A&O x3, Results & Data Results & Data Vital Signs (Past 12 Hours) Vital Signs Temp Pulse Resp BP Pulse Ox O2 Del Method 10/02/25 15:27 97.9 F 69 18 100/55 L 96 Room Air 10/02/25 10:26 Room Air 10/02/25 08:00 98.1 F 72 19 158/68 H 97 Room Air Laboratory Results CBC and chemistry reviewed CRP reviewed UA reviewed PG Care Time/CCT Total # of Minutes Spent Total Time Spent with Patient: Total time spent is greater than 50% in coordination of care (as documented) at patient's floor/unit and/or counseling patient: Coding Level of Care Code 80787 SUB INP/OBS CARE 3/50MIN Diagnoses Postoperative wound dehiscence, initial encounter T81.31XA Encounter type: initial encounter S/P lumbar laminectomy Z98.890 MSSA bacteremia R78.81; B95.61 Lumbar discitis M46.46 (1) Wound dehiscence, surgical Encounter type: initial encounter Qualified Code(s): T81.31XA - Disruption of external operation (surgical) wound, not elsewhere classified, initial encounter
[2025-10-02] MEDS: MELATONIN 3 MG TAB PO PRN (22:15)
[2025-10-03 07:02] LABS: Hematocrit (blood only) 28.6 % (42.0-52.0); Hemoglobin 9.2 g/dL (14.0-18.0); Immature Granulocytes # (auto) 0.21 K/uL (0.01-0.20); Immature Granulocytes % (auto) 2.7 %; Mean Corpuscular Hemoglobin 26.7 pg (25.0-34.0); Mean Corpuscular Volume 82.9 fL (80.0-100.0); Platelet Count 349 K/uL (130-400); RDW Standard Deviation 46.2 fL (36.4-46.3); Red Blood Count 3.45 M/uL (4.70-6.10); White Blood Count 7.79 K/ul (4.8-10.8)
[2025-10-03 07:36] LABS: Anion Gap 6.0 (3-11); Blood Urea Nitrogen 20.0 mg/dl (6-23); Calcium 9.1 mg/dl (8.6-10.3); Carbon Dioxide 30.0 mmol/L (21-32); Chloride 98.0 mmol/L (98-107); Creatinine Clr Calc Pharmacy 73.7 ml/min; Glucose 139.0 mg/dl (70-99(Fasting)); Iron 22.0 mcg/dl (35-175); Potassium 4.0 mmol/L (3.5-5.1); Sodium 134.0 mmol/L (136-145); Total Iron Binding Cap Calc 251.0 mcg/dl (250-450); Transferrin 179.0 mg/dl (200-360); Transferrin (FE) Percent Satur 9.0 % (20-50)
[2025-10-03 07:46] LABS: Folate (Folic Acid),Ser orPlas > 22.30 ng/ml (>5.38)
[2025-10-03 07:47] LABS: Vitamin B12 668 pg/ml (180-914)
[2025-10-03 07:55] LABS: Ferritin 195.3 ng/ml (8-388)
[2025-10-03] MEDS ORDERED: ROCURONIUM BROMIDE 10 MG/ML 5 ML VIAL IV ONE (08:43)
[2025-10-03] MEDS ORDERED: PROPOFOL IV EMULSION 10 MG/ML 20 ML VIAL IV ONE (08:43)
[2025-10-03] MEDS: LACTATED RINGER'S 1,000 ML IV SCH ×2 (09:26→12:09)
--- NOTE | 2025-10-03 09:36 | History & Physical Bridge Note ---
Date of Service October 03, 2025 History & Physical Bridge Note I have examined the patient, reviewed the History & Physical and in the interval since the performance of the History & Physical I have noted the following changes of clinical significance: no changes noted plan for I&D lumbar wound and VAC placement
[2025-10-03] MEDS ORDERED: ATROPINE SULFATE 0.1 MG/ML 10ML SYR IV PRN (09:46)
[2025-10-03] MEDS ORDERED: ONDANSETRON INJ 2 MG/ML 2 ML VIAL IV PRN (09:46)
--- NOTE | 2025-10-03 09:46 | Anesthesiology Consultation ---
Date of Service October 03, 2025 Assessment & Plan Chart Review Chart Review: Acceptable Risk for Surgery Consults Requested none ASA ASA3 Proposed Anesthesia Anesthesia Type: General Risk / Benefits Reviewed With: PT / POA / Parent / Guardian, Accepts Plan and Informed Consent Obtained History Surgery Operation Date: 10/03/25 09:20 Proposed Procedures p Lumbar Wound Incision and Drainage with Wound Vac - Vitaly Hensley MD Height/Weight Height: 5 ft 5 in Weight: 80.5 kg Allergies Allergy/AdvReac Type Severity Reaction Status Date / Time amoxicillin Allergy Intermediate lip Verified 10/03/25 09:20 swelling clavulanic acid Allergy Intermediate lip Verified 10/03/25 09:20 swelling Sulfa (Sulfonamide Allergy Intermediate lip Verified 10/03/25 09:20 Antibiotics) swelling VINCE Inhibitors Allergy Unknown unknown Verified 10/03/25 09:20 clarithromycin AdvReac Intermediate GI upset Verified 10/03/25 09:20 Medications Home Medications Medication Instructions Recorded Confirmed Last Taken aspirin 81 mg tablet,delayed 81 mg PO HS 06/29/18 10/01/25 09/30/25 release (Adult Low Dose Aspirin) docusate sodium 100 mg capsule 100 mg PO HS 01/21/23 10/01/25 09/30/25 (Stool Softener) amlodipine 10 mg tablet 10 mg PO QAM 09/21/23 10/01/25 10/01/25 folic acid 1 mg tablet 1 mg PO QAM 03/07/24 10/01/25 10/01/25 magnesium oxide 400 mg (241.3 mg 400 mg PO QAM #30 tabs 04/29/25 10/01/25 10/01/25 magnesium) tablet potassium chloride 20 mEq 20 meq PO QAM #90 tabs 07/03/25 10/01/25 10/01/25 tablet,extended release cefazolin 2 gram intravenous 2 g IV Q8H MSSA bacteremia 5 weeks 09/07/25 10/01/25 10/01/25 08:30 solution metformin 1,000 mg tablet 1,000 mg PO BID #180 tabs 09/20/25 10/01/25 10/01/25 08:30 ferrous sulfate 325 mg (65 mg 325 mg PO QAM #0 tabs 09/25/25 10/01/25 10/01/25 iron) tablet acetaminophen 325 mg tablet 650 mg PO Q6 PRN pain 1-8 12/01/25 12/01/25 Unknown acetaminophen 325 mg tablet 650 mg PO Q6 PRN temp>100 10/01/25 10/01/25 Unknown acetaminophen 500 mg tablet 500 mg PO TID 10/01/25 10/01/25 10/01/25 06:30 amiodarone 200 mg tablet 200 mg PO QAM 10/01/25 10/01/25 10/01/25 apixaban 5 mg tablet (Eliquis) 5 mg PO AMHS 10/01/25 10/01/25 10/01/25 08:30 baclofen 10 mg tablet 10 mg PO AMHS 10/01/25 10/01/25 10/01/25 08:30 finasteride 5 mg tablet 5 mg PO QAM 10/01/25 10/01/25 10/01/25 furosemide 20 mg tablet (Lasix) 20 mg PO QAM 10/01/25 10/01/25 10/01/25 hydrocodone 5 mg-acetaminophen 325 1 tab PO Q6H PRN pain 9-10 10/01/25 10/01/25 10/01/25 09:05 mg tablet losartan 100 mg tablet 100 mg PO HS 10/01/25 10/01/25 09/30/25 metoprolol succinate 25 mg 25 mg PO QAM 10/01/25 10/01/25 10/01/25 tablet,extended release 24 hr multivitamin 1 tab PO HS 10/01/25 10/01/25 09/30/25 pantoprazole 40 mg tablet,delayed 40 mg PO QAM 10/01/25 10/01/25 10/01/25 release protein supplement 1 ea PO BID 10/01/25 10/01/25 10/01/25 simvastatin 20 mg tablet 20 mg PO HS 10/01/25 10/01/25 09/30/25 tamsulosin 0.4 mg capsule 0.4 mg PO QAM 10/01/25 10/01/25 10/01/25 08:30 vibegron 75 mg tablet (Gemtesa) 75 mg PO QAM 10/01/25 10/01/25 10/01/25 Active Medications Generic Name Dose Route Start Last Admin Trade Name Freq PRN Reason Stop Dose Admin Hydrocodone Bitart/Acetaminophen 1 tab 10/01/25 18:10 10/03/25 03:28 Hydrocodone/Acetamophen 5/325mg Tab PO 10/15/25 18:09 1 tab Q6H PRN Administration pain 9-10 Amiodarone HCl 200 mg 10/02/25 09:00 10/03/25 08:16 Amiodarone 200 Mg Tab PO 11/01/25 08:59 200 mg QAM LICHA Administration Amlodipine Besylate 10 mg 10/02/25 09:00 10/03/25 08:14 Amlodipine Besylate 5 Mg Tab PO 11/01/25 08:59 10 mg QAM LICHA Administration Baclofen 10 mg 10/01/25 21:00 10/03/25 08:15 Baclofen 10 Mg Tab PO 10/31/25 20:59 10 mg AMHS LICHA Administration Docusate Sodium 100 mg 10/01/25 21:00 10/02/25 21:45 Docusate Sodium 100 Mg Cap PO 10/31/25 20:59 100 mg HS LICHA Administration Duloxetine HCl 30 mg 10/02/25 09:00 10/03/25 08:15 Duloxetine Hcl 30 Mg Cap PO 11/01/25 08:59 30 mg DAILY LICHA Administration Duloxetine HCl 60 mg 10/02/25 09:00 10/03/25 08:15 Duloxetine Hcl 60 Mg Cap PO 11/01/25 08:59 60 mg DAILY LICHA Administration Ferrous Sulfate 325 mg 10/02/25 09:00 10/03/25 08:16 Ferrous Sulfate 325 Mg Tab PO 11/01/25 08:59 325 mg QAM LICHA Administration Finasteride 5 mg 10/02/25 09:00 10/03/25 08:18 Finasteride 5 Mg Tab PO 11/01/25 08:59 5 mg QAM LICHA Administration Folic Acid 1 mg 10/02/25 09:00 10/03/25 08:15 Folic Acid 1 Mg Tab PO 11/01/25 08:59 1 mg QAM LICHA Administration Furosemide 20 mg 10/02/25 09:00 10/03/25 08:16 Furosemide 20 Mg Tab PO 11/01/25 08:59 20 mg QAM LICHA Administration Daptomycin 575 mg/ Syringe 11.5 mls @ 5.75 mls/min 10/02/25 12:00 10/02/25 12:27 IV 10/09/25 11:59 5.75 mls/min Q24H LICHA Administration Protocol Ceftriaxone Sodium 2,000 mg in 50 mls @ 100 mls/hr 10/02/25 12:00 10/02/25 13:04 Rocephin IV 10/09/25 11:59 Infused Q24H LICHA Infusion Lactated Ringer's 1,000 mls @ 15 mls/hr 10/03/25 09:00 10/03/25 09:26 Lr IV 10/06/25 08:59 15 mls/hr .Q24H LICHA Administration Losartan Potassium 100 mg 10/01/25 21:00 10/02/25 21:45 Losartan Potassium 50 Mg Tab PO 10/31/25 20:59 100 mg HS LICHA Administration Magnesium Oxide 400 mg 10/02/25 09:00 10/03/25 08:14 Magnesium Oxide 400 Mg Tab PO 11/01/25 08:59 400 mg QAM LICHA Administration Melatonin 3 mg 10/01/25 18:10 10/02/25 22:15 Melatonin 3 Mg Tab PO 10/31/25 18:09 3 mg HS PRN Administration Insomnia Metoprolol Succinate 25 mg 10/02/25 09:00 10/03/25 08:15 Metoprolol Succ 25mg Ext Rel Tab PO 11/01/25 08:59 25 mg QAM LICHA Administration Multivitamins/Minerals 1 tab 10/02/25 10:45 10/03/25 08:16 Cerovite Adv Formula Tab PO 11/01/25 10:44 1 tab QAM LICHA Administration Pantoprazole Sodium 40 mg 10/02/25 09:00 10/03/25 08:16 Pantoprazole 40 Mg Tab PO 11/01/25 08:59 40 mg QAM LICHA Administration Polyethylene Glycol 17 gm 10/01/25 18:10 10/02/25 22:02 Polyethylene (Miralax) 17 Gm Pack PO 10/31/25 18:09 17 gm DAILY PRN Administration Constipation Potassium Chloride 20 meq 10/02/25 09:00 10/03/25 08:14 Potassium Chloride Crtab 20 Meq Tabcr PO 11/01/25 08:59 20 meq QAM LICHA Administration Simvastatin 20 mg 10/02/25 09:00 10/02/25 08:44 Simvastatin 20 Mg Tab PO 11/01/25 08:59 20 mg QAM LICHA Administration Tamsulosin HCl 0.4 mg 10/02/25 09:00 10/03/25 08:15 Tamsulosin Hcl 0.4 Mg Cap PO 11/01/25 08:59 0.4 mg DAILY LICHA Administration Vibegron 75 mg 10/02/25 09:00 10/03/25 08:14 Vibegron 75 Mg Tab PO 11/01/25 08:59 75 mg QAM LICHA Administration NPO Date Last Intake of Fluids: 10/02/25 Time Last Intake of Fluids: 17:00 Last Intake of Fluids Comment: sip of water with AM medications Date Last Intake of Solids: 10/03/25 Time Last Intake of Solids: 08:15 Last Intake of Solids Comment: per report - few sips water with po meds this am Past Medical History Medical History Paroxysmal atrial flutter Anemia Loss of protective sensation of skin of deformed foot Dizziness Anemia Chronic pain Tachycardia COVID-19 Hyperbilirubinemia Venous stasis ulcers Trigger finger of right hand 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 Scapular fracture Tendon rupture, Achilles Hx of diabetic foot ulcer resolved (2021) Past Family History Family History Mother Cardiac disorder Myocardial infarction Aunt Family history of diabetes mellitus Uncle Family history of diabetes mellitus Other No family history of adverse response to anesthesia Denies family history of Ovarian cancer Prostate cancer Breast cancer Colorectal cancer Past Surgical History Surgical History Status post reverse total replacement of right shoulder (~03/2023) S/P foot surgery, left (09/2023) excision w/ amputation of L 5th toe and partial amputation L 4th toe Hx of oral surgery dental implants History of colonoscopy Status post rotator cuff repair S/P arthroscopy of right shoulder 12/2021 S/P rotator cuff repair Left S/P laminectomy (04/25/20) Cervical 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 S/P arthroscopy of shoulder (01/2016) Left S/P left knee arthroscopy (10/2015) H/O elbow surgery R/L S/P hammer toe correction (11/2013) arthrodesis R toe Status post carpal tunnel release of both wrists H/O bilateral cataract extraction History of tonsillectomy S/P laparoscopic cholecystectomy (07/2018) Hx of difficult intubation - History of difficult intubation in 2007 at [facility]. Per record review they were unable to intubate on 3 attempts. Fast track LMA were unsuccessful. Were able to mask vent with 2 people. Intubated with nasal fiberoptic. - Anesthesia records from 2018 lap adelita showed Grade 1 view with Glidescope #4, smooth intubation - Right shoulder arthroscopy, RCR (12/11/21): LMA#5 placed without difficulty + PNB at [facility]. Social History Smoking Status: Former smoker tobacco type: cigarettes Do You Dip or Chew Tobacco: No Hx Alcohol Use: No Hx Substance Use: No substance use type: does not use Physical Exam Vital Signs Last Vital Signs Temp 36.5 C 10/03/25 09:21 Pulse 57 L 10/03/25 09:21 Resp 20 10/03/25 09:21 BP 112/61 10/03/25 09:21 Pulse Ox 95 10/03/25 09:21 O2 Del Method Room Air 10/03/25 09:21 Constitutional no acute distress ENMT Mouth: + edentulous; no TMJ abnormality Thyromental Distance: < 3.5 Finger Breadths Mallampati Class: II Neck normal visual inspection Respiratory normal respiratory effort Auscultation: lungs clear to auscultation bilaterally Cardiovascular Rate/Rhythm: regular rate and regular rhythm Neurologic moves all extremities Psychiatric Orientation: alert and oriented x 3 Testing Laboratory Results 10/03/25 06:38 10/03/25 06:38 Urine Color Yellow 10/02/25 13:00 Urine Appearance Cloudy (Clear) A 10/02/25 13:00 Urine pH 7.0 (4.5-7.5) 10/02/25 13:00 Ur Specific [place] 1.015 (1.000-1.030) 10/02/25 13:00 Urine Protein Trace (Negative) H 10/02/25 13:00 Urine Glucose (UA) Negative (Negative) 10/02/25 13:00 Urine Ketones Trace (Negative) H 10/02/25 13:00 Urine Nitrite Negative (Negative) 10/02/25 13:00 Ur Leukocyte Esterase Negative (Negative) 10/02/25 13:00 Urine WBC (Auto) 0-5 /hpf (0-5) 10/02/25 13:00 Urine RBC (Auto) 3-5 /hpf (0-2) H 10/02/25 13:00 U Hyaline Cast (Auto) 0-2 /lpf (0-2) 10/02/25 13:00 U Epithel Cells (Auto) 0-2 /hpf (0-2) 10/02/25 13:00 Urine Bacteria (Auto) None Seen (None Seen) 10/02/25 13:00 10/01/25 16:08 Aerobic Blood Culture - Preliminary Blood No growth in Aerobic bottle after 24 hours. Anaerobic Blood Culture - Preliminary No growth in Anaerobic bottle after 24 hours. 10/01/25 14:16 Aerobic Blood Culture - Preliminary Blood No growth in Aerobic bottle after 24 hours. Anaerobic Blood Culture - Preliminary No growth in Anaerobic bottle after 24 hours.
[2025-10-03] MEDS ORDERED: ONDANSETRON INJ 2 MG/ML 2 ML VIAL ONE (10:23)
[2025-10-03] MEDS ORDERED: ePHEDrine sulfate 50 MG/5 ML SYR ONE (10:24)
[2025-10-03] MEDS ORDERED: SUGAMMADEX SODIUM 200 MG/2 ML VIAL IV ONE (10:45)
[2025-10-03] MEDS: BUPIVACAINE 0.5 % 5 MG/1 ML MPF 30ML VIAL ONE (11:00)
--- NOTE | 2025-10-03 11:26 | Operative Report ---
PG Post Operative Report Pre & Post Diagnosis Operation Date: 10/03/25 09:20 Pre-Op Diagnosis: Lumber Wound Dehiscence Post-Op Diagnosis: Lumber Wound Dehiscence I identified the patient and participated in the time-out.: Yes Procedure Operation Date: 10/03/25 09:20 Actual Procedures p Lumbar Wound Superficial Rufino Excisional And Debridement Skin and Subcutaneous Fat with Wound Vac placement Surgeon Vitaly Hensley MD [employer] Jonathan Patel PA-C Estimated Blood Loss 25 Findings Consistent with Post-Op Diagnosis Specimens Cultures to Microbiology Drains Wound VAC Complications none Disposition Disposition: Recovery Room Indications Patient underwent decompression for an 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 He has been on IV Ancef however has had continued wound problems likely related to poor nutrition, mobility and DM 2. He has dehisced his wound again, neurologically inatct with only symptoms of pain at the incision site. Description of Procedure Patient was brought to the OR and anesthesia was induced. He was placed prone on the [place] spine table. He was prepped with Chlorhexadine soap after removal of Nylon sutures. He was then draped in the usual sterile fashion and time out performed. The previous incision was recreated with a scalpel. Subcutaneous sutures were removed. Cultures were obtained, there were several small openings in the fascia. There was no obvious purulence, there was a collection of semi consolidated blood and necrotic subcutaneous fat. The wound was thoroughly irrigated, there was no sign of active bleeding. The necrotic skin and subcuatneous fat were sharply excised with scissors, 15 blade and curettes until healthy bleeding tissue was identified. Several sutures were placed in the fascia to obtain a tight closure. A silver impregnated vac sponge was cut and placed in the wound bed. A sheet of the supplied plastic drape was placed along the side of the incision to protect the skin. Another holy cross of vac sponge was placed over this protective layer and the in wound sponge. This was completely covered with a plastic drape. A small hole was cut in the drape and a vac suction device was attached. He was awakened from anesthesia and taken to PACU in stable condition. He will likely need to use the wound VAC until closure with serial changes and wound care consult. I attest to the content of the Intraoperative Record and any orders documented therein. Any exceptions are noted below.
[2025-10-03] MEDS ORDERED: ACETAMINOPHEN 1,000 MG/100 ML VIAL IV PRN (11:56)
[2025-10-03] MEDS ORDERED: LORazepam 0.5 MG TAB PO PRN (11:56)
[2025-10-03] MEDS ORDERED: LORazepam Inj 0.5 MG in SYRINGE 0.25 ML IV PRN (11:56)
[2025-10-03] MEDS ORDERED: PHARMACY GLYCEMIC MGMT CONSULT PRN (11:56)
[2025-10-03] MEDS ORDERED: SOD PHOSPHATE/SOD BIPHOSPHATE ENEMA 132 ML BTL PR PRN (11:56)
[2025-10-03] MEDS ORDERED: DO NOT ADMINISTER PNEUMOCOCCAL VACCINE PRN (11:56)
[2025-10-03] MEDS ORDERED: ACETAMINOPHEN 325 MG TAB PO PRN (11:56)
[2025-10-03] MEDS ORDERED: DO NOT ADMINISTER FLU VACCINE PRN (11:56)
[2025-10-03] MEDS ORDERED: ACETAMINOPHEN 500 MG TAB PO PRN (11:56)
[2025-10-03] MEDS ORDERED: NALOXONE HCL 0.4 MG/1 ML VIAL/CARP IV PRN (11:56)
[2025-10-03] MEDS ORDERED: FAMOTIDINE 20 MG TAB PO PRN (11:56)
[2025-10-03] MEDS ORDERED: diphenhydrAMINE Capsule 25 MG CAP PO PRN (11:56)
--- NOTE | 2025-10-03 12:33 | Anesthesiology Progress Note ---
Date of Service October 03, 2025 Anesthesia Post Procedure Vital Signs Vital Signs: Temp Pulse Pulse Pulse Resp BP Pulse Ox 10/03/25 12:10 36.4 C L 61 14 111/60 95 10/03/25 11:45 58 L 14 119/58 L 100 10/03/25 11:35 36.5 C 61 12 128/61 98 10/03/25 11:25 59 L 16 132/60 100 10/03/25 11:15 60 16 130/61 100 10/03/25 11:08 36.0 C L 59 L 18 122/61 100 10/03/25 09:21 36.5 C 57 L 20 112/61 95 10/03/25 07:55 36.1 C L 62 50 L 14 126/72 93 10/03/25 07:24 10/03/25 00:00 36.4 C L 60 16 112/63 100 10/02/25 21:45 10/02/25 15:27 36.6 C 69 18 100/55 L 96 O2 Del Method O2 Flow Rate 10/03/25 12:10 Nasal Cannula 2 10/03/25 11:45 Nasal Cannula 2 10/03/25 11:35 Nasal Cannula 2 10/03/25 11:25 Oxymask 4 10/03/25 11:15 Oxymask 6 10/03/25 11:08 Oxymask 6 10/03/25 09:21 Room Air 10/03/25 07:55 Room Air 10/03/25 07:24 Room Air 10/03/25 00:00 Room Air 10/02/25 21:45 Room Air 10/02/25 15:27 Room Air Pain Intensity Lower Medial Back: Pain Intensity: 4 Transfer of Care Handoff Completed per policy Notes Mental Status: alert / awake / arousable Patient Amnestic to Procedure: Yes Nausea / Vomiting: adequately controlled Pain: adequately controlled Airway Patency, RR, SpO2: stable & adequate BP & HR: stable & adequate Hydration State: stable & adequate Anesthetic Complications: no major complications apparent
--- NOTE | 2025-10-03 14:37 | Pharmacy Report ---
Glycemic Ortho Sign Off Note - Date of Service October 03, 2025 - Scope Glycemic Pharmacist consulted for glycemic control and to write orders per [facility] inpatient glycemic control protocol. - Objective Accuchecks BSG (last 24hrs):: 10/02/25 10/02/25 10/03/25 16:23 20:24 06:38 Glucose 139 H POC Glucose 137 H 166 H 10/03/25 11:10 Glucose POC Glucose 158 H - Assessment * Pt is maintained on oral antidiabeticagent[s]as anoutpatient with excellent control per recent A1c (5.1%) * Oral agents are not recommended for inpatient use d/t drug interactions, changing PO intake, and difficulty titrating for acute hyper/hypoglycemia. * Recommended regimen for inpatient use is SQ insulin * Low stress weight based insulin dosing appropriate since patient has minimal risk factors for insulin resistance (i.e. no steroids). * Appropriate to DC insulin and resume outpatient antidiabetic regimen at discharge * Goal is to maintain BSGs <200 mg/dl (ideally <150 mg/dl) to prevent post op complications - Plan For Inpatient Glycemic Control * Basal insulin * Not needed based on A1c, pre-op BSGs, and minimal risk factors for insulin resistance * Bolus insulin * Utilize low stress weight based NovoLog parameters per scale ACHS * Pharmacy has entered glycemic orders and is signing off of the glycemic cons ult. We will no longer be making adjustments to inpatient regimen. Please feel free to re-consult if needed. Thank you.
[2025-10-03] MEDS ORDERED: DEXTROSE 50% 50 ML SYRINGE IV PRN (14:45)
[2025-10-03] MEDS ORDERED: GLUCAGON FOR INJ 1 MG VIAL SQ PRN (14:45)
[2025-10-03] MEDS ORDERED: GLUCOSE 40% GEL 15 GM TUBE PO PRN (14:45)
[2025-10-03] MEDS ORDERED: CARBOHYDRATES FOR HYPOGLYCEMIA PO PRN (14:45)
[2025-10-03] MEDS ORDERED: GLUCOSE 10 TAB/TUBE PO PRN (14:45)
[2025-10-03] MEDS: MoRPHine SULFATE 2 MG/ML CARP IV PRN (15:10)
--- NOTE | 2025-10-03 15:28 | Infectious Disease Consult ---
Date of Consultation October 03, 2025 Assessment & Plan (1) Leukocytosis: (2) Postoperative wound dehiscence: (3) MSSA bacteremia: (4) Lumbar discitis: Plan Problems: # Lumbar wound dehiscence # MSSA bacteremia (08/27-08/28/25) # MSSA L3-L4 discitis/osteomyelitis, L2-L3 prevertebral phlegmon/abscess, L3-L4 epidural phlegmon, s/p laminectomy L3-L5 on 08/31/25. OR findings of inflammatory-appearing tissue but no obvious purulent fluid collection. # History of R shoulder replacement # History of C-spine epidural abscess in 2019 s/p C3-C6 fixation # Reported antibiotic allergies: amox/clav (lip swelling) tolerates cefazolin/cefepime, sulfa (lip swelling), clarithromycin (GI upset) Micro: 10/03 Lower back OR cx: pending. GS neg 10/01 BCx x2: NGTD 09/20 Lower back OR cx: NG. GS neg 08/31 Lower back OR cx: MSSA, Cutibacterium acnes 08/29 BCx x2: NG 08/28 BCx x2: MSSA in 2/4 bottles 08/27 BCx x2: MSSA in 3/4 bottles Abx: Ceftriaxone 10/01 - present Dapto 10/01 - present Cefazolin 10/02 84-year-old man with history of HTN, HLD, Aflutter on Eliquis, psoriatic arthritis, history of postlaminectomy syndrome, history of cervical dystonia, history of C-spine epidural abscess in 2019 s/p C3-C6 fixation, history of R shoulder replacement, BPH, T2DM c/b prior diabetic foot wounds and nephropathy, recent admission 08/27-09/07 with MSSA bacteremia and L3-L4 discitis/osteomyelitis, L2-L3 prevertebral phlegmon/abscess, L3-L4 epidural phlegmon, s/p laminectomy L3-L5 on 08/31/25 (no hardware placed), presenting with wound dehiscence. During initial admission with MSSA bacteremia, TTE was negative. ANA was not pursued as pt would receive a 6 week course of IV antibiotics for spinal infection regardless. He was subsequently admitted 09/18-09/26 after superficial wound dehiscence noted in ortho clinic. Did not have leukocytosis at time of admission. 09/18 MRI L spine with and without contrast showed: "progressive postoperative infection with stable deep collection but markedly enlarged subcutaneous collection and increasing peripheral and facet joint enhancement involving nerve roots. Associated paravertebral and facet joint enhancement has also progressed." There was minimal erythema, no purulence on exam. He was taken to the OR on 09/20 for I&D. Per operative note, there was a straw colored fluid collection beneath fibrinous tissue which was cultured. There was also a large consolidated hematoma overlying his prior surgical site which was evacuated. L2 laminectomy performed. No recurrent epidural abscess encountered. OR culture showed no growth. Was discharged to rehab with portable incision Prevena VAC in place. However at the facility, there was no wound care team that would be able to continue care for the wound VAC. The wound VAC was discontinued and a dressing was placed. The wound was reportedly draining quite a bit, and pt was sent back to ED for evaluation. He then presented back to the hospital on 10/01 with wound dehiscence. On presentation, he was afebrile without leukocytosis. Labs showed WBC 10.39 (increased to 15.44 on 10/01). BCx drawn, NGTD. Ortho was consulted, noted a mild superficial wound opening towards the inferior 1/3 of the incision with bloody drainage. no surrounding erythema. Currently on dapto and ceftriaxone. He was taken to the OR on 10/03. Per operative note, there was no obvious purulence, there as a collection of semi consolidated blood and necrotic subcutaneous fat. OR culture pending, gram stain without organisms. Discussion: Pt admitted for the second time for lumbar wound dehiscence, ortho feels likely related to poor nutrition, mobility, and DM2. During 09/20 washout, there was a straw colored fluid collection (culture negative) and a large hematoma over the prior surgical site that was evacuated. Did not have fevers or leukocytosis at that time. During 10/03 OR, there was no obvious purulence, and a collection a semi consolidated blood and necrotic subcutaneous fat. Afebrile this admission, but did have leukocytosis to 15.44 on 10/01, now resolved. Recommendations: - Can continue dapto (currently dosed at ~8 mg/kg by ABW) and ceftriaxone for now - Follow-up OR culture - Currently scheduled to finish 6 weeks of IV antibiotics from initial I&D on 10/11/25. Likely will maintain this end date unless operative culture is positive Will continue to follow Consultation Information This patient recommendation is based on a telemedicine consult request which was completed asynchronously through chart review and information provided by the primary physician. The patient was not seen or examined today. The evaluation is consultative in nature and all patient care and treatment decisions can either be accepted or rejected by the patient's primary hospital-based treating physician using their own independent medical judgment for their patient. [employer] Director contact information: Please call [facility] Center [phone]. (Phone Number For Physician Use Only) Time Spent Reviewing Chart: 31+ minutes History of Present Illness Reason for Consultation: Spinal infection with wound dehiscence Attending Physician: Marni Wilkerson MD History of Present Illness 84-year-old man with history of HTN, HLD, Aflutter on Eliquis, psoriatic arthritis, history of postlaminectomy syndrome, history of cervical dystonia, history of C-spine epidural abscess in 2019 s/p C3-C6 fixation, history of R shoulder replacement, BPH, T2DM c/b prior diabetic foot wounds and nephropathy, recent admission 08/27-09/07 with MSSA bacteremia and L3-L4 discitis/osteomyelitis, L2-L3 prevertebral phlegmon/abscess, L3-L4 epidural phlegmon, s/p laminectomy L3-L5 on 08/31/25 (no hardware placed), presenting with wound dehiscence. During initial admission with MSSA bacteremia, TTE was negative. ANA was not pursued as pt would receive a 6 week course of IV antibiotics for spinal infection regardless. He was subsequently admitted 09/18-09/26 after superficial wound dehiscence noted in ortho clinic. Did not have leukocytosis at time of admission. 09/18 MRI L spine with and without contrast showed: "progressive postoperative infection with stable deep collection but markedly enlarged subcutaneous collection and increasing peripheral and facet joint enhancement involving nerve roots. Associated paravertebral and facet joint enhancement has also progressed." There was minimal erythema, no purulence on exam. He was taken to the OR on 09/20 for I&D. Per operative note, there was a straw colored fluid collection beneath fibrinous tissue which was cultured. There was also a large consolidated hematoma overlying his prior surgical site which was evacuated. L2 laminectomy performed. No recurrent epidural abscess encountered. OR culture showed no growth. Was discharged to rehab with portable incision Prevena VAC in place. However at the facility, there was no wound care team that would be able to continue care for the wound VAC. The wound VAC was discontinued and a dressing was placed. The wound was reportedly draining quite a bit, and pt was sent back to ED for evaluation. He then presented back to the hospital on 10/01 with wound dehiscence. On presentation, he was afebrile without leukocytosis. Labs showed WBC 10.39 (increased to 15.44 on 10/01). BCx drawn, NGTD. Ortho was consulted, noted a mild superficial wound opening towards the inferior 1/3 of the incision with bloody drainage. no surrounding erythema. Currently on dapto and ceftriaxone. He was taken to the OR on 10/03. Per operative note, there was no obvious purulence, there as a collection of semi consolidated blood and necrotic subcutaneous fat. OR culture pending, gram stain without organisms. Allergies Allergy/AdvReac Type Severity Reaction Status Date / Time amoxicillin Allergy Intermediate lip Verified 10/03/25 09:20 swelling clavulanic acid Allergy Intermediate lip Verified 10/03/25 09:20 swelling Sulfa (Sulfonamide Allergy Intermediate lip Verified 10/03/25 09:20 Antibiotics) swelling VINCE Inhibitors Allergy Unknown unknown Verified 10/03/25 09:20 clarithromycin AdvReac Intermediate GI upset Verified 10/03/25 09:20 Home Medications Medication Instructions Recorded Confirmed Type aspirin 81 mg tablet,delayed 81 mg PO HS 06/29/18 10/01/25 History release (Adult Low Dose Aspirin) docusate sodium 100 mg capsule 100 mg PO HS 01/21/23 10/01/25 History (Stool Softener) amlodipine 10 mg tablet 10 mg PO QAM 09/21/23 10/01/25 History folic acid 1 mg tablet 1 mg PO QAM 03/07/24 10/01/25 History magnesium oxide 400 mg (241.3 mg 400 mg PO QAM #30 tabs 04/29/25 10/01/25 Rx magnesium) tablet potassium chloride 20 mEq 20 meq PO QAM #90 tabs 07/03/25 10/01/25 Rx tablet,extended release cefazolin 2 gram intravenous 2 g IV Q8H MSSA bacteremia 5 weeks 09/07/25 10/01/25 Rx solution metformin 1,000 mg tablet 1,000 mg PO BID #180 tabs 09/20/25 10/01/25 Rx ferrous sulfate 325 mg (65 mg 325 mg PO QAM #0 tabs 09/25/25 10/01/25 Rx iron) tablet acetaminophen 325 mg tablet 650 mg PO Q6 PRN pain 1-8 10/01/25 10/01/25 History acetaminophen 325 mg tablet 650 mg PO Q6 PRN temp>100 10/01/25 10/01/25 History acetaminophen 500 mg tablet 500 mg PO TID 10/01/25 10/01/25 History amiodarone 200 mg tablet 200 mg PO QAM 10/01/25 10/01/25 History apixaban 5 mg tablet (Eliquis) 5 mg PO AMHS 10/01/25 10/01/25 History baclofen 10 mg tablet 10 mg PO AMHS 10/01/25 10/01/25 History finasteride 5 mg tablet 5 mg PO QAM 10/01/25 10/01/25 History furosemide 20 mg tablet (Lasix) 20 mg PO QAM 10/01/25 10/01/25 History hydrocodone 5 mg-acetaminophen 325 1 tab PO Q6H PRN pain 9-10 10/01/25 10/01/25 History mg tablet losartan 100 mg tablet 100 mg PO HS 10/01/25 10/01/25 History metoprolol succinate 25 mg 25 mg PO QAM 10/01/25 10/01/25 History tablet,extended release 24 hr multivitamin 1 tab PO HS 10/01/25 10/01/25 History pantoprazole 40 mg tablet,delayed 40 mg PO QAM 10/01/25 10/01/25 History release protein supplement 1 ea PO BID 10/01/25 10/01/25 History simvastatin 20 mg tablet 20 mg PO HS 10/01/25 10/01/25 History tamsulosin 0.4 mg capsule 0.4 mg PO QAM 10/01/25 10/01/25 History vibegron 75 mg tablet (Gemtesa) 75 mg PO QAM 10/01/25 10/01/25 History Patient History Medical History Paroxysmal atrial flutter Anemia Loss of protective sensation of skin of deformed foot Dizziness Anemia Chronic pain Tachycardia COVID-19 Hyperbilirubinemia Venous stasis ulcers Trigger finger of right hand 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 S/P arthroscopy of shoulder (01/2016) Left S/P left knee arthroscopy (10/2015) H/O elbow surgery R/L S/P hammer toe correction (11/2013) arthrodesis R toe Status post carpal tunnel release of both wrists H/O bilateral cataract extraction History of tonsillectomy S/P laparoscopic cholecystectomy (07/2018) Hx of difficult intubation - History of difficult intubation in 2007 at [facility]. Per record review they were unable to intubate on 3 attempts. Fast track LMA were unsuccessful. Were able to mask vent with 2 people. Intubated with nasal fiberoptic. - Anesthesia records from 2018 lap adelita showed Grade 1 view with Glidescope #4, smooth intubation - Right shoulder arthroscopy, RCR (12/11/21): LMA#5 placed without difficulty + PNB at [facility]. Family History Mother Cardiac disorder Myocardial infarction Aunt Family history of diabetes mellitus Uncle Family history of diabetes mellitus Other No family history of adverse response to anesthesia Denies family history of Ovarian cancer Prostate cancer Breast cancer Colorectal cancer Social History Smoking Status: Former smoker Tobacco Type: Cigarettes Age Started Using Tobacco: 14; Age Quit Using Tobacco: 44; packs per day: 2; Second Hand Exposure: No; Do You Dip or Chew Tobacco: No; Hx Alcohol Use: No Hx Substance Use: No Preferred Language: Swedish Communication Ability: Effective Visual Impairment: Limited Hearing Ability: Hard of Hearing [employer] Consultant Required: No Beliefs That Will Affect Care: None marital status: Current Living Situation: Rehab Current Living Situation Comment: lives with current occupational status: retired How many Children do You have: 4 How many Children do You have Comment: one son are local and able to assist with care as needed. Other children live further away. Feels Safe at Home: Yes Diet: diabetic caffeine: Yes during the past year weight has: remained stable Dental Care, Regularly: Yes Physical Activity Frequency: Daily Physical Activity Frequency Comment: very active around house Seatbelt Use: always Sunscreen Use: Yes Assistive Devices: Cane and Walker Results & Data Vital Signs (Past 12 Hours) Vital Signs Temp Pulse Pulse Pulse Resp BP Pulse Ox 10/03/25 15:14 94 10/03/25 15:13 36.6 C 56 L 16 102/60 90 10/03/25 14:05 36.6 C 58 L 16 104/57 L 96 10/03/25 13:37 36.4 C L 47 L 10 L 113/62 97 10/03/25 13:10 36.5 C 56 L 16 106/67 99 10/03/25 12:41 36.4 C L 54 L 19 114/74 93 10/03/25 12:10 36.4 C L 61 14 111/60 95 10/03/25 11:45 58 L 14 119/58 L 100 10/03/25 11:35 36.5 C 61 12 128/61 98 10/03/25 11:25 59 L 16 132/60 100 10/03/25 11:15 60 16 130/61 100 10/03/25 11:08 36.0 C L 59 L 18 122/61 100 10/03/25 09:21 36.5 C 57 L 20 112/61 95 10/03/25 07:55 36.1 C L 62 50 L 14 126/72 93 10/03/25 07:24 O2 Del Method O2 Flow Rate 10/03/25 15:14 Nasal Cannula 2 10/03/25 15:13 Room Air 10/03/25 14:05 Nasal Cannula 1 10/03/25 13:37 Nasal Cannula 2 10/03/25 13:10 Nasal Cannula 2 10/03/25 12:41 Nasal Cannula 2 10/03/25 12:10 Nasal Cannula 2 10/03/25 11:45 Nasal Cannula 2 10/03/25 11:35 Nasal Cannula 2 10/03/25 11:25 Oxymask 4 10/03/25 11:15 Oxymask 6 10/03/25 11:08 Oxymask 6 10/03/25 09:21 Room Air 10/03/25 07:55 Room Air 10/03/25 07:24 Room Air (1) Leukocytosis Leukocytosis type: unspecified Qualified Code(s): D72.829 - Elevated white blood cell count, unspecified (2) Postoperative wound dehiscence Encounter type: initial encounter Qualified Code(s): T81.31XA - Disruption of external operation (surgical) wound, not elsewhere classified, initial encounter
--- NOTE | 2025-10-03 16:25 | Hospitalist Progress Note ---
Date of Service October 03, 2025 Assessment & Plan (1) Wound dehiscence, surgical: (2) S/P lumbar laminectomy: (3) MSSA bacteremia: (4) Lumbar discitis: Plan 85 y/o male with recent h/o MSSA bacteremia and discitis, presents with recurrent wound dehiscence, leg recent admission admission for such and to which patient was discharged to SNF. #Wound dehiscence/MSSA Bacteremia: - Wound dehiscence - suspect poor wound healing largely a function of malnutrition, immobility. Did have elevated CRP and WBC on arrival, received daptomycin and ceftriaxone in the ED. Given that patient is still on the IV Ancef for his recent bacteremia, we will continue expanded coverage with daptomycin and ceftriaxone and await new IntraOp cultures. CRP downtrending leukocytosis resolved on ID consulted Blood cultures: no growth at 24 hours Ortho spine consulted - S/p lumbar wound incision and drainage with wound VAC placement on 10/[address] Shellie sethi to resume Eliquis 10/04 Q2H turns, encourage OOB RD consulted - diet liberalized, MVI added PT/OT Consult wound care nurse, appreciate recs [place] PRN for pain control, morphine for breakthrough #H/O T2DM: Last A1c 5.1% No SSI indicated at this time, can continue BSG checks to ensure in range to help wound healing HTN: continue amlodipine, losartan, lasix #pAF: continue metoprolol hold Eliquis #HLD: continue statin #Depression: continue Cymbalta #BPH: continue alfuzosin, finasteride, vibegron #Chronic anemia-hgb 8-10 over last few months. Borderline microcytic. Is on anticoagulation but no obvious bleeding. Did have recent back surgery so had some blood loss then. iron studies consistent with iron deficiency anemia, B12 and folate within normal limits. Plan for IV iron infusion 10/04 monitor hemoglobin postoperatively Dispo: continued inpatient stay, PT/OT evals tomorrow, monitor hemoglobin VTE ppx: SCDs - Eliquis held plan to resume 10/04 Admission and Anticipated Discharge Date Admission Date: October 01, 2025 Supervising Physician Co-Signing Physician Notes PA Supervision Note: I did not personally see or examine the patient today, but I verified all galindo points of MARY Stewart's assessment and plan with the following exceptions/additions: None Subjective patient Seen lying in bed postoperatively, reports having a lot of burning back pain. He asked what is going to happen next and I explained how he needs to be seen by physical therapy and get up and moving to prevent worsening of this wound. To this he did not respond Review of Systems Review of Systems: All systems reviewed & are unremarkable except as noted in Subjective Physical Exam Physical Exam: General: NAD, VS as above, lying in bed, appears comfortable Resp: normal respiratory effort, lungs clear to auscultation anteriorly, CV: RRR, no murmur, Abd: normal bowel sounds, non tender, soft Extremities: Moves all extremities, able to wiggle toes bilaterally and lift bilateral legs off the bed back: Wound VAC in place : Condom catheter in place Neuro: A&O x3, Results & Data Results & Data Vital Signs (Past 12 Hours) Vital Signs Temp Pulse Pulse Pulse Resp BP Pulse Ox 10/03/25 15:14 94 10/03/25 15:13 97.9 F 56 L 16 102/60 90 10/03/25 14:05 97.9 F 58 L 16 104/57 L 96 10/03/25 13:37 97.5 F L 47 L 10 L 113/62 97 10/03/25 13:10 97.7 F 56 L 16 106/67 99 10/03/25 12:41 97.5 F L 54 L 19 114/74 93 10/03/25 12:10 97.5 F L 61 14 111/60 95 10/03/25 11:45 58 L 14 119/58 L 100 10/03/25 11:35 97.7 F 61 12 128/61 98 10/03/25 11:25 59 L 16 132/60 100 10/03/25 11:15 60 16 130/61 100 10/03/25 11:08 96.8 F L 59 L 18 122/61 100 10/03/25 09:21 97.7 F 57 L 20 112/61 95 10/03/25 07:55 96.9 F L 62 50 L 14 126/72 93 10/03/25 07:24 O2 Del Method O2 Flow Rate 10/03/25 15:14 Nasal Cannula 2 10/03/25 15:13 Room Air 10/03/25 14:05 Nasal Cannula 1 10/03/25 13:37 Nasal Cannula 2 10/03/25 13:10 Nasal Cannula 2 10/03/25 12:41 Nasal Cannula 2 10/03/25 12:10 Nasal Cannula 2 10/03/25 11:45 Nasal Cannula 2 10/03/25 11:35 Nasal Cannula 2 10/03/25 11:25 Oxymask 4 10/03/25 11:15 Oxymask 6 10/03/25 11:08 Oxymask 6 10/03/25 09:21 Room Air 10/03/25 07:55 Room Air 10/03/25 07:24 Room Air Laboratory Results CBC, chemistry, iron studies reviewed CRP reviewed Folate and B12 reviewed PG Care Time/CCT Total # of Minutes Spent Total Time Spent with Patient: Total time spent is greater than 50% in coordination of care (as documented) at patient's floor/unit and/or counseling patient: Coding Level of Care Code 86246 SUB INP/OBS CARE 3/50MIN Diagnoses Postoperative wound dehiscence, initial encounter T81.31XA Encounter type: initial encounter S/P lumbar laminectomy Z98.890 MSSA bacteremia R78.81; B95.61 Lumbar discitis M46.46 (1) Wound dehiscence, surgical Encounter type: initial encounter Qualified Code(s): T81.31XA - Disruption of external operation (surgical) wound, not elsewhere classified, initial encounter
[2025-10-03] MEDS: INSULIN ASPART PER UNIT CHARGE SC SCH (17:07)
[2025-10-03] MEDS ORDERED: NON-FORMULARY MEDICATION (Protein Supplement Liquid) PO SCH (21:00)
[2025-10-04 06:22] LABS: Hematocrit (blood only) 28.7 % (42.0-52.0); Hemoglobin 9.0 g/dL (14.0-18.0); Immature Granulocytes # (auto) 0.28 K/uL (0.01-0.20); Immature Granulocytes % (auto) 2.4 %; Mean Corpuscular Hemoglobin 26.8 pg (25.0-34.0); Mean Corpuscular Volume 85.4 fL (80.0-100.0); Platelet Count 390 K/uL (130-400); RDW Standard Deviation 47.7 fL (36.4-46.3); Red Blood Count 3.36 M/uL (4.70-6.10); White Blood Count 11.77 K/ul (4.8-10.8)
[2025-10-04 06:46] LABS: Anion Gap 8.0 (3-11); Blood Urea Nitrogen 23.0 mg/dl (6-23); Calcium 9.0 mg/dl (8.6-10.3); Carbon Dioxide 29.0 mmol/L (21-32); Chloride 98.0 mmol/L (98-107); Creatinine Clr Calc Pharmacy 53.0 ml/min; Glucose 136.0 mg/dl (70-99(Fasting)); Potassium 4.5 mmol/L (3.5-5.1); Sodium 135.0 mmol/L (136-145)
--- NOTE | 2025-10-04 08:44 | Orthopedic Progress Note ---
Date of Service October 04, 2025 Assessment & Plan (1) S/P lumbar laminectomy: (2) Deep postoperative wound infection: Plan * Continue Current Treatment * S/p lumbar wound I&D and VAC placement * Wound care team following, VAC changes per protocol * Weight bearing status: activity as tolerated * Daily treatment: Physical Therapy/ Occupational Therapy per protocol * Pain control * Continue to monitor for ABLA * DVT prophylaxis, ok to resume from ortho standpoint * Disposition: TBD, must go to facility capable of doing regular vac changes as rec by wound care on discharge * Office/hospital f/u 2 weeks for progress check and staple/suture removal * Remainder care per primary team * Stable for discharge from ortho standpoint, further planning per primary team Subjective . Active Problems: S/p lumbar wound I&D, application wound VAC POD 1 85 y/o male s/p lumbar wound I&D and VAC placement. Doing well overall. Denies fever/chills, chest pain/SOB, nausea/vomiting. Otherwise no complaints. Review of Systems All systems reviewed & are unremarkable except as noted in HPI & below. Physical Exam . * General: Alert and oriented, no acute distress * Constitutional: well-developed, well-nourished. * Respiratory: Normal respiratory effort, no distress * Gastrointestinal: No tenderness to palpation, no rigidity or guarding. * Skin: No rash or lesion. * Neurologic: Grossly normal * Musculoskeletal: Surgical dressing/VAC dressing intact and sealed, scant bloody output in canister. Lumbar spine region without obvious deformity or overlying skin changes. Minimal tenderness of surgical region, otherwise no tenderness b/l buttock or LE. Lumbar flexion/extension and rotation ROM with minimal pain. AROM b/l hip flexion, knee flexion/extension, ankle flexion/extension intact. Sensation intact plantar/dorsal foot. Brisk capillary refill. Results & Data Results & Data Laboratory Results . Diagnostic Findings . PG Care Time/CCT Total # of Minutes Spent Total Time Spent with Patient: Total time spent is greater than 50% in coordination of care (as documented) at patient's floor/unit and/or counseling patient: Coding Level of Care Code 60267 Post Operative Follow-Up Diagnoses S/P lumbar laminectomy Z98.890 Deep postoperative wound infection T81.42XA
--- NOTE | 2025-10-04 09:09 | Infectious Disease Progress Nt ---
Date of Service October 04, 2025 Assessment & Plan (1) Leukocytosis: (2) Postoperative wound dehiscence: (3) MSSA bacteremia: (4) Lumbar discitis: Plan Problems: # Post-operative lumbar wound infection # MSSA bacteremia (08/27-08/28/25) # MSSA L3-L4 discitis/osteomyelitis, L2-L3 prevertebral phlegmon/abscess, L3-L4 epidural phlegmon, s/p laminectomy L3-L5 on 08/31/25. OR findings of inflammatory-appearing tissue but no obvious purulent fluid collection. # History of R shoulder replacement # History of C-spine epidural abscess in 2019 s/p C3-C6 fixation # Reported antibiotic allergies: amox/clav (lip swelling) tolerates cefazolin/cefepime, sulfa (lip swelling), clarithromycin (GI upset) Micro: 10/03 Lower back OR cx: Enterobacter cloacae complex. GS neg 10/01 BCx x2: NGTD 09/20 Lower back OR cx: NG. GS neg 08/31 Lower back OR cx: MSSA, Cutibacterium acnes 08/29 BCx x2: NG 08/28 BCx x2: MSSA in 2/4 bottles 08/27 BCx x2: MSSA in 3/4 bottles Abx: Ceftriaxone 10/01 - present Dapto 10/01 - present Cefazolin 10/02 84-year-old man with history of HTN, HLD, Aflutter on Eliquis, psoriatic arthritis, history of postlaminectomy syndrome, history of cervical dystonia, history of C-spine epidural abscess in 2019 s/p C3-C6 fixation, history of R shoulder replacement, BPH, T2DM c/b prior diabetic foot wounds and nephropathy, recent admission 08/27-09/07 with MSSA bacteremia and L3-L4 discitis/osteomyelitis, L2-L3 prevertebral phlegmon/abscess, L3-L4 epidural phlegmon, s/p laminectomy L3-L5 on 08/31/25 (no hardware placed), presenting with postoperative lumbar wound infection. During initial admission with MSSA bacteremia, TTE was negative. ANA was not pursued as pt would receive a 6 week course of IV antibiotics for spinal infection regardless. He was subsequently admitted 09/18-09/26 after superficial wound dehiscence noted in ortho clinic. Did not have leukocytosis at time of admission. 09/18 MRI L spine with and without contrast showed: "progressive postoperative infection with stable deep collection but markedly enlarged subcutaneous collection and increasing peripheral and facet joint enhancement involving nerve roots. Associated paravertebral and facet joint enhancement has also progressed." There was minimal erythema, no purulence on exam. He was taken to the OR on 09/20 for I&D. Per operative note, there was a straw colored fluid collection beneath fibrinous tissue which was cultured. There was also a large consolidated hematoma overlying his prior surgical site which was evacuated. L2 laminectomy performed. No recurrent epidural abscess encountered. OR culture showed no dillan wth. Was discharged to rehab with portable incision Prevena VAC in place, continued on cefazolin. However at the facility, there was no wound care team that would be able to continue care for the wound VAC. The wound VAC was discontinued and a dressing was placed. The wound was reportedly draining quite a bit, and pt was sent back to ED for evaluation. He then presented back to the hospital on 10/01 with wound dehiscence. On presentation, he was afebrile without leukocytosis. Labs showed WBC 10.39 (increased to 15.44 on 10/01). BCx drawn, NGTD. Ortho was consulted, noted a mild superficial wound opening towards the inferior 1/3 of the incision with bloody drainage. no surrounding erythema. Cefazolin broadened to dapto and ceftriaxone. He was taken to the OR on 10/03. Per operative note, there was no obvious purulence, there as a collection of semi consolidated blood and necrotic subcutaneous fat. OR culture now growing Enterobacter cloacae. Discussion: Pt admitted for the second time for lumbar wound dehiscence, ortho feels likely related to poor nutrition, mobility, and DM2. During 09/20 washout, there was a straw colored fluid collection (culture negative) and a large hematoma over the prior surgical site that was evacuated. Did not have fevers or leukocytosis at that time. During 10/03 OR, there was no obvious purulence, and a collection of semi consolidated blood and necrotic subcutaneous fat. Afebrile this admission, but did have leukocytosis to 15.44 on 10/01, now downtrended. OR culture grew Enterobacter cloacae. Recommendations: - Stopped daptomycin and ceftriaxone. Started cefepime to cover MSSA and Enterobacter cloacae - Follow-up Enterobacter cloacae susceptibilities - Currently scheduled to finish 6 weeks of IV cefazolin from initial I&D on 10/11/25. Will discuss with orthopedic team the depth of this Enterobacter cloacae infection and whether to reset the 6 week course of antibiotics Will continue to follow Admission and Anticipated Discharge Date Admission Date: October 01, 2025 Subjective Subsequent visit was provided via telemedicine using two-way real-time interactive telecommunication between the patient and the telemedicine provider. For the duration of the visit, the provider was performing the assessment from a different facility than the patient. This includesuse of bluetooth stethoscope forauscultationperformed by the telepresenter that the telemedicine provider can hear if described in the physical exam. Freezing Machine Operator contact information: Please call [facility] [phone]. (Phone Number For Physician Use Only) After establishing a telemedicine visit, patient was: Patient was verified with two unique identifiers, Patient/authorized rep acknowledged consent and understa nding and Gave permission to continue telehealth session Time Spent with Patient: Subsequent => 25 min Afebrile WBC 7.79 --> 11.77 OR culture growing Enterobacter cloacae complex Physical Exam Physical Exam: GEN: elderly man laying in bed in NAD, drowsy. RESP: No increased work of breathing SKIN: wound vac over lumbar spine Results & Data Vital Signs (Past 12 Hours) Vital Signs Temp Pulse Resp BP Pulse Ox O2 Del Method O2 Flow Rate 10/04/25 08:00 36.3 C L 46 L 17 124/68 94 Nasal Cannula 2 10/04/25 05:47 46 L 96 Nasal Cannula 2 10/04/25 05:46 42 L 16 114/52 L 84 L Room Air 10/04/25 03:43 36.3 C L 45 L 18 109/48 L 100 Nasal Cannula 2 10/03/25 23:50 36.3 C L 46 L 18 99/47 L 100 Nasal Cannula 2 (1) Leukocytosis Leukocytosis type: unspecified Qualified Code(s): D72.829 - Elevated white blood cell count, unspecified (2) Postoperative wound dehiscence Encounter type: initial encounter Qualified Code(s): T81.31XA - Disruption of external operation (surgical) wound, not elsewhere classified, initial encounter
[2025-10-04] MEDS: APIXABAN 5 MG TABLET PO SCH (09:58)
[2025-10-04] MEDS: IRON SUCROSE 300 MG in SODIUM CHLORIDE 0.9% 250 ML IV ONE (10:03)
[2025-10-04] MEDS: CEFEPIME 2000MG 2,000 MG/20 ML SYR IV SCH (12:26)
--- NOTE | 2025-10-04 16:14 | Hospitalist Progress Note ---
"Date of Service October 04, 2025 Assessment & Plan (1) Wound dehiscence, surgical: (2) S/P lumbar laminectomy: (3) MSSA bacteremia: (4) Lumbar discitis: Plan 85 y/o male with recent h/o MSSA bacteremia and discitis, presents with recurrent wound dehiscence, leg recent admission admission for such and to which patient was discharged to SNF. #Wound dehiscence/hx of MSSA Bacteremia | wound infection - Wound dehiscence - suspect poor wound healing largely a function of malnutrition, immobility. did present with elevated CRP and leukocytosis - CRP downtrending leukocytosis resolved. Blood cultures: no growth at 48 hours . WC: enterobacter cloacae ID consultedplan for new 6-week course of antibiotics given new isolate, plan for cefemine Ortho spine consulted - S/p lumbar wound incision and drainage with wound VAC placement on 10/[address] Shellie sethi to resume Eliquis 10/04 Q2H turns, encourage OOB, IS RD consulted - diet liberalized, MVI added PT/OT - rec rehab Consult wound care nurse, appreciate recs [place] PRN for pain control, morphine for breakthrough #H/O T2DM: Last A1c 5.1% No SSI indicated at this time, can continue BSG checks to ensure in range to help wound healing BSG acceptable HTN: continue amlodipine, losartan, lasix #pAF: continue metoprolol & Eliquis #HLD: continue statin #Depression: continue Cymbalta #BPH/#Urinary retention-did require straight cath a.m. of 12/4is on Flomax, continue to monitor for retention slight leukocytosis, hopefully from stress of surgery does not appear that , recheck in a.m. continue alfuzosin, finasteride, vibegron #Chronic anemia-hgb 8-10 over last few months. Borderline microcytic. Is on anticoagulation but no obvious bleeding. Did have recent back surgery so had some blood loss then. iron studies consistent with iron deficiency anemia, B12 and folate within normal limits. Plan for IV iron infusion 10/04 monitor hemoglobin postoperatively Dispo: continued inpatient stay, PT/OT evals tomorrow, monitor hemoglobin VTE ppx: SCDs - Eliquis updated 10/04 via phone Admission and Anticipated Discharge Date Admission Date: October 01, 2025 Supervising Physician Co-Signing Physician Notes PA Supervision Note: I did not personally see or examine the patient today, but I verified all galindo points of MARY Stewart's assessment and plan with the following exceptions/additions: None Subjective patient seen lying in bed, he reports feeling lousy because he is not able to move as well. I encouraged him to do the exercises in bed when he is unable to get out of bed. He is not highly motivated. He denies pain at rest. Denies shortness of breath. Review of Systems Review of Systems: All systems reviewed & are unremarkable except as noted in Subjective Physical Exam Physical Exam: General: NAD, VS as above, lying in bed, appears comfortable Resp: normal respiratory effort, lungs clear to auscultation anteriorly, CV: RRR, no murmur, Abd: normal bowel sounds, non tender, soft Extremities: Moves all extremities, able to wiggle toes bilaterally, Lower extremity strength is decreased back: Wound VAC in place Neuro: A&O x3, Results & Data Results & Data Vital Signs (Past 12 Hours) Vital Signs Temp Pulse Resp BP Pulse Ox O2 Del Method O2 Flow Rate 10/04/25 15:33 97.5 F L 55 L 18 117/59 L 99 Room Air 10/04/25 11:16 97.5 F L 44 L 18 135/84 98 Nasal Cannula 2 10/04/25 08:00 Nasal Cannula 2 10/04/25 08:00 97.3 F L 46 L 17 124/68 94 Nasal Cannula 2 10/04/25 05:47 46 L 96 Nasal Cannula 2 10/04/25 05:46 42 L 16 114/52 L 84 L Room Air Laboratory Results CBC and chemistry reviewed Wound culture reviewed PG Care Time/CCT Total # of Minutes Spent Total Time Spent with Patient: Total time spent is greater than 50% in coordination of care (as documented) at patient's floor/unit and/or counseling patient: Coding Level of Care Code 37857 SUB INP/OBS CARE 3/50MIN Diagnoses Postoperative wound dehiscence, initial encounter T81.31XA Encounter type: initial encounter S/P lumbar laminectomy Z98.890 MSSA bacteremia R78.81; B95.61 Lumbar discitis M46.46 (1) Wound dehiscence, surgical Encounter type: initial encounter Qualified Code(s): T81.31XA - Disruption of external operation (surgical) wound, not elsewhere classified, initial encounter"
--- NOTE | 2025-10-04 16:30 | Advance Care Plan Prog Note ---
Advanced Care Planning Note Date of Discussion October 04, 2025 ACP Discussion Diagnoses requiring ACP discussion: recurrent wound infection A [id number]-[id number] discussion with the patient regarding the patient's advanced care planning took place during this hospitalization on the above date. The discussion included the explanation and discussion of advance directives and associated forms/documents, as well as the patient's current code status. We also discussed at length the patient's medical conditions (both acute and chronic), general prognosis, treatment options, and goals of care. The following summarizes the discussion: discussion with Bill about the new bacteria found in his wound and the need for prolonged antibiotics. Similar to previous days we had a discussion about how he is not going to get better with medication alone and he has to do his part with therapy and proper nutrition. I again emphasized the importance of Q2 hour turns to offload his wound and doing exercises in bed when he is unable to get out of bed to the chair. He does not seem highly motivated, especially because his pain is well-controlled while he is at rest. He describes working with therapy as "getting beat up". We then discussed my concerns about his overall functional status and his prognosis and a code scenario. Explained in no uncertain terms that there is a high likelihood that he would only be able to be kept alive on machines. We discussed options for CODE STATUS and patient would like to remain a full code. unable to be present for this conversation as she is sick at home, however I did update her by phone after this conversation asked pressing my concerns about his poor functional status and overall mobility. Advance Care Planning/Goals of Care Continue current evaluation & management of any acute/chronic issues, Will continue to support the patient/family and Will continue to discuss both short- and long-term goals of care Status Resuscitation Status Full Code Total Time I spent a total of 22 minutes was spent on this discussion, including counseling, answering questions, and completing, if any, pertinent advanced care planning forms/documents.
[2025-10-04] MEDS: KETOROLAC TROMETHAMINE 15 MG/ML VIAL IV SCH (19:01)
[2025-10-04] MEDS: ASPIRIN 81 MG ECTAB PO SCH (20:36)
[2025-10-05 06:08] LABS: Hematocrit (blood only) 27.0 % (42.0-52.0); Hemoglobin 8.3 g/dL (14.0-18.0); Immature Granulocytes # (auto) 0.22 K/uL (0.01-0.20); Immature Granulocytes % (auto) 2.2 %; Mean Corpuscular Hemoglobin 26.4 pg (25.0-34.0); Mean Corpuscular Volume 86.0 fL (80.0-100.0); Platelet Count 324 K/uL (130-400); RDW Standard Deviation 47.9 fL (36.4-46.3); Red Blood Count 3.14 M/uL (4.70-6.10); White Blood Count 9.79 K/ul (4.8-10.8)
[2025-10-05 06:34] LABS: Anion Gap 7.0 (3-11); Calcium 8.9 mg/dl (8.6-10.3); Carbon Dioxide 27.0 mmol/L (21-32); Chloride 101.0 mmol/L (98-107); Potassium 4.9 mmol/L (3.5-5.1); Sodium 135.0 mmol/L (136-145)
[2025-10-05 06:40] LABS: Blood Urea Nitrogen 23.0 mg/dl (6-23); Creatinine Clr Calc Pharmacy 59.1 ml/min; Glucose 108.0 mg/dl (70-99(Fasting))
--- NOTE | 2025-10-05 07:47 | Infectious Disease Progress Nt ---
Date of Service October 05, 2025 Assessment & Plan (1) Leukocytosis: (2) Postoperative wound dehiscence: (3) MSSA bacteremia: (4) Lumbar discitis: Plan Problems: # Post-operative lumbar wound infection # MSSA bacteremia (08/27-08/28/25) # MSSA L3-L4 discitis/osteomyelitis, L2-L3 prevertebral phlegmon/abscess, L3-L4 epidural phlegmon, s/p laminectomy L3-L5 on 08/31/25. OR findings of inflammatory-appearing tissue but no obvious purulent fluid collection. # History of R shoulder replacement # History of C-spine epidural abscess in 2019 s/p C3-C6 fixation # Reported antibiotic allergies: amox/clav (lip swelling) tolerates cefazolin/cefepime, sulfa (lip swelling), clarithromycin (GI upset) Micro: 10/03 Lower back OR cx: Enterobacter cloacae complex (S cefepime, cipro, levo, TMP/SMX). GS neg 10/01 BCx x2: NGTD 09/20 Lower back OR cx: NG. GS neg 08/31 Lower back OR cx: MSSA, Cutibacterium acnes 08/29 BCx x2: NG 08/28 BCx x2: MSSA in 2/4 bottles 08/27 BCx x2: MSSA in 3/4 bottles Abx: Cefepime 10/04 - present Ceftriaxone 10/01 - 10/03 Dapto 10/01 - 10/03 Cefazolin 10/02 84-year-old man with history of HTN, HLD, Aflutter on Eliquis, psoriatic arthritis, history of postlaminectomy syndrome, history of cervical dystonia, history of C-spine epidural abscess in 2019 s/p C3-C6 fixation, history of R shoulder replacement, BPH, T2DM c/b prior diabetic foot wounds and nephropathy, recent admission 08/27-09/07 with MSSA bacteremia and L3-L4 discitis/osteomyelitis, L2-L3 prevertebral phlegmon/abscess, L3-L4 epidural phlegmon, s/p laminectomy L3-L5 on 08/31/25 (no hardware placed), presenting with postoperative lumbar wound infection with Enterobacter cloacae. During initial admission with MSSA bacteremia, TTE was negative. ANA was not pursued as pt would receive a 6 week course of IV antibiotics for spinal infection regardless. He was subsequently admitted 09/18-09/26 after superficial wound dehiscence noted in ortho clinic. Did not have leukocytosis at time of admission. 09/18 MRI L spine with and without contrast showed: "progressive postoperative infection with stable deep collection but markedly enlarged subcutaneous collection and increasing peripheral and facet joint enhancement involving nerve roots. Associated paravertebral and facet joint enhancement has also progressed." There was minimal erythema, no purulence on exam. He was taken to the OR on 09/20 for I&D. Per operative note, there was a straw colored fluid collection beneath fibrinous tissue which was cultured. There was also a large consolidated hematoma overlying his prior surgical site which was evacuated. L2 laminectomy performed. No recurrent epidural abscess encountered. OR culture showed no growth. Was discharged to rehab with portable incision Prevena VAC in place, continued on cefazolin. However at the facility, there was no wound care team that would be able to continue care for the wound VAC. The wound VAC was discontinued and a dressing was placed. The wound was reportedly draining quite a bit, and pt was sent back to ED for evaluation. He then presented back to the hospital on 10/01 with wound dehiscence. On presentation, he was afebrile. Labs showed WBC 10.39 (increased to 15.44 on 10/01). BCx drawn, NGTD. Ortho was consulted, noted a mild superficial wound opening towards the inferior 1/3 of the incision with bloody drainage, no surrounding erythema. Cefazolin broadened to dapto and ceftriaxone. He was taken to the OR on 10/03. Per operative note, there was no obvious purulence, there as a collection of semi consolidated blood and necrotic subcutaneous fat. OR culture grew Enterobacter cloacae for which antibiotics were switched to cefepime on 10/04. Discussion: Pt admitted for the second time for lumbar wound dehiscence. During 09/20 washout, there was a straw colored fluid collection (culture negative) and a large hematoma over the prior surgical site that was evacuated. Did not have fevers or leukocytosis at that time. During 10/03 OR, there was no obvious purulence, and a collection of semi consolidated blood and necrotic subcutaneous fat. Afebrile this admission, but did have leukocytosis to 15.44 on 10/01, now downtrended. OR culture grew Enterobacter cloacae. I discussed with orthopedics, who felt that we should assume the Enterobacter cloacae infection extends deep. Will plan to reset his course of antibiotics with 6 weeks of cefepime. Recommendations: - Continue cefepime, increased to 2 g IV q8h, to cover MSSA and Enterobacter cloacae. Complete a 6 week course 10/04 - 11/14/25 via PICC. (If pt eventually discharges home, could consider cefepime 6 g IV slow continuous infusion over 24 hours via portable pump for ease of dosing) - Will arrange for OPAT follow-up. See below antibiotic discharge summary for lab monitoring/fax number, follow-up details Will sign off. [facility] Discharge summary, Discharging Physician please order the following on discharge: Diagnosis: MSSA and Enterobacter cloacae lumbar spine infection Organism: MSSA, Enterobacter cloacae Antibiotic: (dose and frequency) cefepime 2 g IV q8h Start of therapy: 10/04/25 End of therapy: 11/14/25 Labs should be faxedto:[facility] [phone] Labs needed and frequency: CBC with diff, CMP weekly The [facility] will contact the patient to schedule a follow-up appointment. If you have not heard from the clinic within one week of discharge, please call the [facility] at [phone] ask for Racheal Abbasi. Clinic Address [address] [place] [address] Office (P) [phone] Appointment-time frame: ~5 weeks Admission and Anticipated Discharge Date Admission Date: October 01, 2025 Subjective This patient recommendation is based on a telemedicine consult request which was completed asynchronously through chart review and information provided by the primary physician. The patient was not seen or examined today. The evaluation is consultative in nature and all patient care and treatment decisions can either be accepted or rejected by the patient's primary hospital-based treating physician using their own independent medical judgment for their patient. Time Spent Reviewing Chart: 21 - 30 minutes WBC 11.77 --> 9.79 Afebrile On cefepime Results & Data Vital Signs (Past 12 Hours) Vital Signs Temp Pulse Resp BP Pulse Ox O2 Del Method O2 Flow Rate 10/05/25 00:32 36.8 C 57 L 16 127/53 L 99 Nasal Cannula 2 10/04/25 20:35 Nasal Cannula 2 (1) Leukocytosis Leukocytosis type: unspecified Qualified Code(s): D72.829 - Elevated white blood cell count, unspecified (2) Postoperative wound dehiscence Encounter type: initial encounter Qualified Code(s): T81.31XA - Disruption of external operation (surgical) wound, not elsewhere classified, initial encounter
--- NOTE | 2025-10-05 07:57 | Orthopedic Progress Note ---
Date of Service October 05, 2025 Assessment & Plan (1) S/P lumbar laminectomy: (2) Deep postoperative wound infection: Plan * Continue Current Treatment * S/p lumbar wound I&D and VAC placement * Wound care team following, VAC changes per protocol * Nutrition eval appreciated, dietary modifications per recommendations * Encouraged frequent repositioning and time out of bed to offload incision * Weight bearing status: activity as tolerated * Daily treatment: Physical Therapy/ Occupational Therapy per protocol * Pain control * Continue to monitor for ABLA * DVT prophylaxis, ok to resume from ortho standpoint * Disposition: TBD, must go to facility capable of doing regular vac changes as rec by wound care on discharge * Office/hospital f/u 2 weeks for progress check and staple/suture removal Subjective Active Problems: S/p lumbar wound I&D, application wound VAC POD 2 85 y/o male s/p lumbar wound I&D and VAC placement. Remains quite lethargic, just waking up at time of exam, but this has been his typical post-op presentation following each of his recent procedures. Is alert and oriented once awake. Denies fever/chills, chest pain/SOB, nausea/vomiting. Otherwise no complaints. Review of Systems All systems reviewed & are unremarkable except as noted in HPI & below. Physical Exam * Musculoskeletal: Surgical dressing/VAC dressing intact and sealed, small volume of bloody output in canister. Lumbar spine region without obvious deformity or overlying skin changes. Minimal tenderness of surgical region, otherwise no tenderness b/l buttock or LE. Lumbar flexion/extension and rotation ROM with minimal pain. AROM b/l hip flexion, knee flexion/extension, ankle flexion/extension intact. Sensation intact plantar/dorsal foot. Brisk capillary refill. Results & Data Results & Data Laboratory Results . Diagnostic Findings . PG Care Time/CCT Total # of Minutes Spent Total Time Spent with Patient: Total time spent is greater than 50% in coordination of care (as documented) at patient's floor/unit and/or counseling patient: Coding Level of Care Code 52056 Post Operative Follow-Up Diagnoses S/P lumbar laminectomy Z98.890 Deep postoperative wound infection T81.42XA
[2025-10-05] MEDS: CEFEPIME 2000MG 2,000 MG/20 ML SYR IV SCH (11:31)
--- NOTE | 2025-10-05 11:45 | Hospitalist Progress Note ---
Date of Service October 05, 2025 Assessment & Plan (1) Wound dehiscence, surgical: (2) S/P lumbar laminectomy: (3) MSSA bacteremia: (4) Lumbar discitis: Plan 85 y/o male with recent h/o MSSA bacteremia and discitis, presents with recurrent wound dehiscence, leg recent admission admission for such and to which patient was discharged to SNF. #Wound dehiscence/hx of MSSA Bacteremia | wound infection - Wound dehiscence - suspect poor wound healing largely a function of malnutrition, immobility. did present with elevated CRP and leukocytosis - CRP downtrending leukocytosis resolved. Blood cultures: no growth at 48 hours . WC: enterobacter cloacae with sensitivity to Cefepime ID consultedplan for new 6-week course of antibiotics given new isolate, plan for cefemine Ortho spine consulted - S/p lumbar wound incision and drainage with wound VAC placement on 10/[address] Shellie stehi to resume Eliquis 10/04 Q2H turns, encourage OOB, IS RD consulted - diet liberalized, MVI added PT/OT - rec rehab Consult wound care nurse, appreciate recs Hitchcock PRN for pain control, morphine for breakthrough #H/O T2DM: Last A1c 5.1% No SSI indicated at this time, can continue BSG checks to ensure in range to help wound healing BSG acceptable HTN: continue amlodipine, losartan, lasix #pAF: continue metoprolol & Eliquis #HLD: continue statin #Depression: continue Cymbalta #BPH/#Urinary retention-did require straight cath a.m. of 12/4is on Flomax, continue to monitor for retention slight leukocytosis, hopefully from stress of surgery does not appear that , recheck in a.m. continue alfuzosin, finasteride, vibegron #Chronic anemia-hgb 8-10 over last few months. Borderline microcytic. Is on anticoagulation but no obvious bleeding. Did have recent back surgery so had some blood loss then. iron studies consistent with iron deficiency anemia, B12 and folate within normal limits. Received IV iron infusion 10/04 Noted drop in hgb to 8.3 (9.0 on 10/04). On FeSO4 supplementation. Continue to monitor. #Decreased Urinary Output Bladder scan qshift, place hopson if PVR >300 Dispo: continued inpatient stay, PT/OT evals tomorrow, monitor hemoglobin. SNF on d/c. VTE ppx: SCDs - Mayra updated 10/04 via phone Admission and Anticipated Discharge Date Admission Date: October 01, 2025 Supervising Physician Co-Signing Physician Notes PA Supervision Note: I did not personally see or examine the patient today, but I verified all galindo points of MARY Amezquita's assessment and plan with the following exceptions/additions: None Subjective Bill is an 85 yo M who was hospitalized with lumbar wound dehiscence s/p I&D with placement of a wound vac and MSSA bacteremia. He was seen today on rounds, [employer] field coordinator was in this AM and exchange wound vac. Wound grew out Enterobacter with sensitivity to Cefepime which he is currently on. He is being followed by ID and ortho. He will require 6w of IV Cefepime total and recommendations are for him to go to SNF for IV abx and wound care/wound vac management. He currently endorses feeling "terrible" c/o low back pain. Per RN, he has had limited urinary output over the last 24-48 hrs and has required straight caths. He voided this AM in his bed and a small amount of hematuria was noted. PVR was negative with only 10 ml residual noted in the bladder. He denies cp or dyspnea. Review of Systems 2 Review of Systems: All systems reviewed and are unremarkable except as noted in HPI and below. Denies fever, chills, fatigue, headache, nasal congestion, sore throat, cough, chest pain, shortness of breath, palpitations, orthopnea, PND, abdominal pain, n/v/d, constipation, dysuria, frequency. Physical Exam 2 Physical Exam: GENERAL: 85 yo thin frail elderly WM. No distress. LUNGS: Clear to auscultation bilaterally. No W/R/R. CARDIOVASCULAR: Regular rate and rhythm. ABDOMEN: Soft, non-tender and non-distended. BS normoactive x 4 quad. EXTREMITIES: No edema. Non-tender. Peripheral pulses +2/4. NEUROLOGIC: A&O x3. No focal neurological deficits. CN II-XII grossly intact. SKIN: wound vac noted to lower back. Results & Data Results & Data Vital Signs (Past 12 Hours) Vital Signs Temp Pulse Pulse Resp BP Pulse Ox O2 Del Method 10/05/25 08:02 35.4 C L 56 L 11 L 120/52 L 94 Nasal Cannula 10/05/25 00:32 36.8 C 57 L 16 127/53 L 99 Nasal Cannula O2 Flow Rate 10/05/25 08:02 1 10/05/25 00:32 2 Laboratory Results 10/05/25 04:54 10/05/25 04:54 PG Care Time/CCT Total # of Minutes Spent Total Time Spent with Patient: Total time spent is greater than 50% in coordination of care (as documented) at patient's floor/unit and/or counseling patient: 36 minutes Coding Level of Care Code 32217 SUB INP/OBS CARE 2/35MIN Diagnoses Postoperative wound dehiscence, initial encounter T81.31XA Encounter type: initial encounter S/P lumbar laminectomy Z98.890 MSSA bacteremia R78.81; B95.61 Lumbar discitis M46.46 (1) Wound dehiscence, surgical Encounter type: initial encounter Qualified Code(s): T81.31XA - Disruption of external operation (surgical) wound, not elsewhere classified, initial encounter
[2025-10-05] MEDS: LIDOCAINE 2% JELLY 5 ML TUBE EXT PRN (21:39)
[2025-10-06 06:34] LABS: Hematocrit (blood only) 27.1 % (42.0-52.0); Hemoglobin 8.5 g/dL (14.0-18.0); Immature Granulocytes # (auto) 0.18 K/uL (0.01-0.20); Immature Granulocytes % (auto) 1.9 %; Mean Corpuscular Hemoglobin 26.6 pg (25.0-34.0); Mean Corpuscular Volume 84.7 fL (80.0-100.0); Platelet Count 343 K/uL (130-400); RDW Standard Deviation 47.2 fL (36.4-46.3); Red Blood Count 3.20 M/uL (4.70-6.10); White Blood Count 9.38 K/ul (4.8-10.8)
[2025-10-06 06:58] LABS: Anion Gap 6.0 (3-11); Blood Urea Nitrogen 21.0 mg/dl (6-23); Calcium 9.0 mg/dl (8.6-10.3); Carbon Dioxide 30.0 mmol/L (21-32); Chloride 98.0 mmol/L (98-107); Creatinine Clr Calc Pharmacy 62.8 ml/min; Glucose 105.0 mg/dl (70-99(Fasting)); Potassium 4.6 mmol/L (3.5-5.1); Sodium 134.0 mmol/L (136-145)
--- NOTE | 2025-10-06 07:41 | Hospitalist Progress Note ---
Date of Service October 06, 2025 Assessment & Plan (1) Postoperative wound dehiscence: (2) Deep postoperative wound infection: (3) Psoriatic arthritis: (4) Urinary retention due to benign prostatic hyperplasia: Plan In summary this is an 85-year-old male admitted for recurrent wound dehiscence and deep postoperative wound infection #Recurrent wound dehiscence // Recent MSSA bacteremia Underwent surgical intervention for debridement and wound VAC placement on 10/03 without complication; operative room cultures yielded Enterobacter cloacae, with subsequent infectious disease consultation Continue cefepime 2 g IV every 8 hours scheduled for total 6-week course through 11/14/2025 via PICC; anticipate OPAT follow-up; multifactorial cause of recurrence including chronic steroid therapy resulting in altered dermal structure and compromising wound healing, chronic peripheral arterial disease related to now well controlled type II diabetes mellitus, recurrent hospitalizations leading to sarcopenia, nutritional deficiencies, pressure injury to surgical site resulting in recurrent devitalized tissue Blood cultures no growth at 72 hours PT, OT, portable machine sander, wound care consultation - Strong emphasis by all team members the importance of regular activity, being out of bed regularly,and engaging in physical therapy #Postoperative urinary retention // BPH with LUTS Struggling with urinary retention during hospitalization with recurrent bladder scans of greater than 300 mL of urinary retention; Forbes catheter placed in the afternoon on 10/05; likely due to combination of underlying BPH and postoperative retention - Hold Vibegron given urinary retention - Continue alfuzosin and finasteride - Maintain Forbes catheterization, earliest void trial anticipated for 10/08 The remainder the patient's chronic medical conditions are stable and do not require adjustment to their outpatient regimen at this time Admission and Anticipated Discharge Date Admission Date: October 01, 2025 Subjective Mr. Quiroz is an 85-year-old male whose active medical conditions include type II diabetes mellitus complicated by diabetic neuropathy and nephropathy in addition to chronic venous insufficiency, essential hypertension, mixed hyperlipidemia, obstructive sleep apnea, osteoarthritis of multiple joints bilaterally among other chronic medical conditions who presented to the [facility] on 10/01 due to recurrent surgical wound dehiscence with operative intervention on 10/03 with excisional debridement with wound vacuum placement. No acute overnight events; continues to feel unwell, primarily due to pain and discomfort related to his chronic low back wound Review of Systems Review of Systems: Review of constitutional, cardiovascular, pulmonary, musculoskeletal, neurologic systems was unremarkable except for pertinent positive and negative findings discussed above Physical Exam Physical Exam: General: Elderly male in no acute distress Vital Signs: Reviewed HEENT: Moist mucous membranes Pulmonary: Symmetric chest wall excursion without restriction; clear to auscultation bilaterally Cardiovascular: Regular rate and rhythm without murmurs, rubs, or gallops, S1 and S2 normal; right radial pulse 2+ with trace bilateral lower extremity edema Gastrointestinal: Protuberant, nontender Skin: Surgical site appears well with wound VAC intact; wound image reviewed from 10/05, small amount of active bleeding, granular tissue appreciated; no evidence of necrosis or eschar, wound border appears well with some very small amount of macerated tissue Neurologic: Cranial nerves II through XII grossly intact Results & Data Results & Data Vital Signs (Past 12 Hours) Vital Signs Temp Pulse Resp BP Pulse Ox O2 Del Method 10/05/25 22:17 36.6 C 53 L 18 118/57 L 94 Room Air PG Care Time/CCT Total # of Minutes Spent Total Time Spent with Patient: Total time spent is greater than 50% in coordination of care (as documented) at patient's floor/unit and/or counseling patient: Coding Level of Care Code 93721 SUB INP/OBS CARE 2/35MIN Diagnoses Postoperative wound dehiscence T81.31XA Encounter type: initial encounter Deep postoperative wound infection T81.42XA Psoriatic arthritis L40.50 Urinary retention due to benign prostatic hyperplasia N40.1; R33.8 (1) Postoperative wound dehiscence Encounter type: initial encounter Qualified Code(s): T81.31XA - Disruption of external operation (surgical) wound, not elsewhere classified, initial encounter
--- NOTE | 2025-10-06 08:45 | Orthopedic Progress Note ---
Date of Service October 06, 2025 Assessment & Plan (1) Deep postoperative wound infection: Plan * Continue Current Treatment * S/p lumbar wound I&D and VAC placement * Wound care team following, VAC changes per protocol * Nutrition eval appreciated, dietary modifications per recommendations * Encouraged frequent repositioning and time out of bed to offload incision * Weight bearing status: activity as tolerated * Daily treatment: Physical Therapy/ Occupational Therapy per protocol * Pain control * Continue to monitor for ABLA * DVT prophylaxis, ok to resume from ortho standpoint * Disposition: TBD, must go to facility capable of doing regular vac changes as rec by wound care on discharge * Office/hospital f/u 2 weeks for progress check and staple/suture removal * * Patient seen and examined no new changes regarding operative site will continue with wound management, discussed with patient proper nutrition needs relative to healing. Subjective Active Problems: S/p lumbar wound I&D, application wound VAC POD 3 85 y/o male s/p lumbar wound I&D and VAC placement. Remains quite lethargic, just waking up at time of exam, but this has been his typical post-op presentation following each of his recent procedures. Is alert and oriented once awake. VAC functioning well. Denies fever/chills, chest pain/SOB, nausea/vomiting. Otherwise no complaints. Review of Systems All systems reviewed & are unremarkable except as noted in HPI & below. Physical Exam * Musculoskeletal: Surgical dressing/VAC dressing intact and sealed, small volume of bloody output in canister. Lumbar spine region without obvious deformity or overlying skin changes. Minimal tenderness of surgical region, otherwise no tenderness b/l buttock or LE. Lumbar flexion/extension and rotation ROM with minimal pain. AROM b/l hip flexion, knee flexion/extension, ankle flexion/extension intact. Sensation intact plantar/dorsal foot. Brisk capillary refill. Results & Data Results & Data Laboratory Results . Diagnostic Findings . PG Care Time/CCT Total # of Minutes Spent Total Time Spent with Patient: Total time spent is greater than 50% in coordination of care (as documented) at patient's floor/unit and/or counseling patient: Coding Level of Care Code 57854 Post Operative Follow-Up Diagnoses Deep postoperative wound infection T81.42XA
[2025-10-06] MEDS: POLYETHYLENE (MIRALAX) 17 GM PACK PO SCH (14:43)
--- NOTE | 2025-10-07 08:09 | Hospitalist Progress Note ---
Date of Service October 07, 2025 Assessment & Plan (1) Postoperative wound dehiscence: (2) Deep postoperative wound infection: (3) Psoriatic arthritis: (4) Urinary retention due to benign prostatic hyperplasia: Plan In summary this is an 85-year-old male admitted for recurrent wound dehiscence and deep postoperative wound infection #Recurrent wound dehiscence // Recent MSSA bacteremia Underwent surgical intervention for debridement and wound VAC placement on 10/03 without complication; operative room cultures yielded Enterobacter cloacae, with subsequent infectious disease consultation Continue cefepime 2 g IV every 8 hours scheduled for total 6-week course through 11/14/2025 via PICC; anticipate OPAT follow-up; multifactorial cause of recurrence including chronic steroid therapy resulting in altered dermal structure and compromising wound healing, chronic peripheral arterial disease related to now well controlled type II diabetes mellitus, recurrent hospitalizations leading to sarcopenia, nutritional deficiencies, pressure injury to surgical site resulting in recurrent devitalized tissue - Maintain wound VACC; ~50 mL of serosanguineous output overnight Blood cultures no growth at 5 days PT, OT, bird trapper, wound care consultation - Strong emphasis by all team members the importance of regular activity, being out of bed regularly,and engaging in physical therapy #Geriatric frailty // Anasarca and Sarcopenia Consequential of the patient's recurrent hospitalizations, lack of activity, and nutrition - Continue with PT, OT, and bird trapper recommendations - Anticipate placement to SNF, hopefully within next 24 to 48 hours #Postoperative urinary retention // BPH with LUTS Struggling with urinary retention during hospitalization with recurrent bladder scans of greater than 300 mL of urinary retention; Forbes catheter placed in the afternoon on 10/05; likely due to combination of underlying BPH, postoperative retention, and slow-transit constipation - Hold Vibegron given urinary retention - Continue alfuzosin and finasteride - Maintain Forbes catheterization, earliest void trial anticipated for 10/08 #Slow transit and iatrogenic constipation Patient had been without bowel movement since admission; Milk and Molasses enema administered 10/06 with successful bowel movement thereafter - Continue miralax 17 g p.o. daily, scheduled - Continue bisacodyl 5 mg p.o. at bedtime #Paroxysmal atrial flutter and fibrillation Chronic condition; continue anticoagulation #Type II diabetes mellitus with multiple complications Most recent HbA1c 5.1%; continue current regimen during hospitalization The remainder the patient's chronic medical conditions are stable and do not require adjustment to their outpatient regimen at this time Admission and Anticipated Discharge Date Admission Date: October 01, 2025 Subjective Mr. Quiroz is an 85-year-old male whose active medical conditions include type II diabetes mellitus complicated by diabetic neuropathy and nephropathy in addit ion to chronic venous insufficiency, essential hypertension, mixed hyperlipidemia, obstructive sleep apnea, osteoarthritis of multiple joints bilaterally among other chronic medical conditions who presented to the [facility] on 10/01 due to recurrent surgical wound dehiscence with operative intervention on 10/03 with excisional debridement with wound vacuum placement. No acute overnight events; successful bowel movement after enema on 10/06 with continued stool passage Review of Systems Review of Systems: Review of constitutional, cardiovascular, pulmonary, musculoskeletal, neurologic systems was unremarkable except for pertinent positive and negative findings discussed above Physical Exam Physical Exam: General: Elderly male in no acute distress Vital Signs: Reviewed HEENT: Moist mucous membranes Pulmonary: Symmetric chest wall excursion without restriction; clear to auscultation bilaterally Cardiovascular: Regular rate and rhythm without murmurs, rubs, or gallops, S1 an d S2 normal; right radial pulse 2+ with trace bilateral lower extremity edema Gastrointestinal: Protuberant, nontender Skin: Surgical site appears well with wound VAC intact Neurologic: Cranial nerves II through XII grossly intact Results & Data Results & Data Vital Signs (Past 12 Hours) Vital Signs Temp Pulse Resp BP Pulse Ox O2 Del Method 10/07/25 07:48 36.5 C 78 14 148/65 H 98 Room Air 10/06/25 23:14 36.7 C 58 L 16 123/67 95 Room Air 10/06/25 21:45 Room Air PG Care Time/CCT Total # of Minutes Spent Total Time Spent with Patient: Total time spent is greater than 50% in coordination of care (as documented) at patient's floor/unit and/or counseling patient: Coding Level of Care Code 43854 SUB INP/OBS CARE 2/35MIN Diagnoses Postoperative wound dehiscence T81.31XA Encounter type: initial encounter Deep postoperative wound infection T81.42XA Psoriatic arthritis L40.50 Urinary retention due to benign prostatic hyperplasia N40.1; R33.8 (1) Postoperative wound dehiscence Encounter type: initial encounter Qualified Code(s): T81.31XA - Disruption of external operation (surgical) wound, not elsewhere classified, initial encounter
[2025-10-07] MEDS: POLYETHYLENE (MIRALAX) 17 GM PACK PO SCH (08:36)
--- NOTE | 2025-10-08 07:39 | Hospitalist Progress Note ---
Date of Service October 08, 2025 Assessment & Plan (1) Postoperative wound dehiscence: (2) Deep postoperative wound infection: (3) Urinary retention due to benign prostatic hyperplasia: Plan In summary this is an 85-year-old male admitted for recurrent wound dehiscence and deep postoperative wound infection #Recurrent wound dehiscence // Recent MSSA bacteremia Underwent surgical intervention for debridement and wound VAC placement on 10/03 without complication; operative room cultures yielded Enterobacter cloacae, with subsequent infectious disease consultation Continue cefepime 2 g IV every 8 hours scheduled for total 6-week course through 11/14/2025 via PICC; anticipate OPAT follow-up; multifactorial cause of recurrence including chronic steroid therapy resulting in altered dermal structure and compromising wound healing, chronic peripheral arterial disease related to now well controlled type II diabetes mellitus, recurrent hospitalizations leading to sarcopenia, nutritional deficiencies, pressure injury to surgical site resulting in recurrent devitalized tissue - Maintain wound VACC; ~20 mL output in 24 hours Blood cultures no growth at 5 days PT, OT, microbiology manager, wound care consultation - Strong emphasis by all team members the importance of regular activity, being out of bed regularly, and engaging in physical therapy #Geriatric frailty // Anasarca and Sarcopenia Consequential of the patient's recurrent hospitalizations, lack of activity, and nutrition - Continue with PT, OT, and microbiology manager recommendations - Anticipate placement to SNF, hopefully within next 24 to 48 hours #Postoperative urinary retention // BPH with LUTS Struggling with urinary retention during hospitalization with recurrent bladder scans of greater than 300 mL of urinary retention; Forbes catheter placed in the afternoon on 10/05; likely due to combination of underlying BPH, postoperative retention, and slow-transit constipation - Hold Vibegron given urinary retention - Continue alfuzosin and finasteride - Maintain Forbes catheterization, recommend maintenance through 10/10 with void trial at that time #Slow transit and iatrogenic constipation Patient had been without bowel movement since admission; Milk and Molasses enema administered 10/06 with successful bowel movement thereafter - Continue miralax 17 g p.o. daily, scheduled - Continue bisacodyl 5 mg p.o. at bedtime #Paroxysmal atrial flutter and fibrillation Chronic condition; continue anticoagulation #Type II diabetes mellitus with multiple complications Most recent HbA1c 5.1%; continue current regimen during hospitalization The remainder the patient's chronic medical conditions are stable and do not require adjustment to their outpatient regimen at this time Medically stable for discharge to SNF at this time Admission and Anticipated Discharge Date Admission Date: October 01, 2025 Subjective Mr. Quiroz is an 85-year-old male whose active medical conditions include type II diabetes mellitus complicated by diabetic neuropathy and nephropathy in addition to chronic venous insufficiency, essential hypertension, mixed hyperlipidemia, obstructive sleep apnea, osteoarthritis of multiple joints bilaterally among other chronic medical conditions who presented to the [facility] on 10/01 due to recurrent surgical wound dehiscence with operative intervention on 10/03 with excisional debridement with wound vacuum placement. No acute overnight events; endorses some increased stiffness of his hands this morning Review of Systems Review of Systems: Review of constitutional, cardiovascular, pulmonary, musculoskeletal, neurologic systems was unremarkable except for pertinent positive and negative findings d iscussed above Physical Exam Physical Exam: General: Elderly male in no acute distress Vital Signs: Reviewed HEENT: Moist mucous membranes Pulmonary: Symmetric chest wall excursion without restriction; clear to auscultation bilaterally Cardiovascular: Regular rate and rhythm without murmurs, rubs, or gallops, S1 and S2 normal; right radial pulse 2+ with trace bilateral lower extremity edema Gastrointestinal: Soft, nontender Skin: Surgical site appears well with wound VAC intact Neurologic: Cranial nerves II through XII grossly intact; diminished but intact and symmetric sensation of the upper and lower extremities, crossing dermatomes and myotomes, in a glove and stocking pattern Musculoskeletal: interosseous muscle atrophy of the hands, with generalized sarcopenia; cephalometric analyst strength 4/5, able to manipulate objects on bedside table well Results & Data Results & Data Vital Signs (Past 12 Hours) Vital Signs Temp Pulse Resp BP Pulse Ox O2 Del Method 10/07/25 23:06 36.6 C 57 L 15 116/53 L 97 Room Air 10/07/25 20:05 Room Air PG Care Time/CCT Total # of Minutes Spent Total Time Spent with Patient: Total time spent is greater than 50% in coordination of care (as documented) at patient's floor/unit and/or counseling patient: Coding Level of Care Code 58487 SUB INP/OBS CARE 2/35MIN Diagnoses Postoperative wound dehiscence T81.31XA Encounter type: initial encounter Deep postoperative wound infection T81.42XA Urinary retention due to benign prostatic hyperplasia N40.1; R33.8 (1) Postoperative wound dehiscence Encounter type: initial encounter Qualified Code(s): T81.31XA - Disruption of external operation (surgical) wound, not elsewhere classified, initial encounter
--- NOTE | 2025-10-08 14:26 | Orthopedic Progress Note ---
Date of Service October 08, 2025 Assessment & Plan (1) Wound dehiscence, surgical: Plan PT as tolerated minimize narcotics OK for discharge to a facility with wound care that can continue VAC dressings Subjective Messaged by nursing patient c/o numbness in hands and legs. On exam he is seated in chair eating, numbness appears to be his baseline neuropathy from his DM. He often states his legs are numb or he can't move, but he is neuro intact and at baseline. I discussed with him again today the importance of mobilizing with PT and not relying so much or narcotic pain medicine. He demonstrates low effort with PT and exam, but is neuro intact. Review of Systems All systems reviewed & are unremarkable except as noted in HPI & below. Physical Exam moves all 4 extremities at baseline function, no new deficits chronic peripheral neuropathy wound vac functioning Results & Data Results & Data Laboratory Results . Diagnostic Findings . PG Care Time/CCT Total # of Minutes Spent Total Time Spent with Patient: Total time spent is greater than 50% in coordination of care (as documented) at patient's floor/unit and/or counseling patient: Coding Level of Care Code 98392 Post Operative Follow-Up Diagnoses Postoperative wound dehiscence, initial encounter T81.31XA Encounter type: initial encounter (1) Wound dehiscence, surgical Encounter type: initial encounter Qualified Code(s): T81.31XA - Disruption of external operation (surgical) wound, not elsewhere classified, initial encounter
--- NOTE | 2025-10-09 07:21 | Hospitalist Progress Note ---
Date of Service October 09, 2025 Assessment & Plan (1) Postoperative wound dehiscence: (2) Deep postoperative wound infection: (3) Urinary retention due to benign prostatic hyperplasia: Plan In summary this is an 85-year-old male admitted for recurrent wound dehiscence and deep postoperative wound infection #Recurrent wound dehiscence // Recent MSSA bacteremia Underwent surgical intervention for debridement and wound VAC placement on 10/03 without complication; operative room cultures yielded Enterobacter cloacae, with subsequent infectious disease consultation Continue cefepime 2 g IV every 8 hours scheduled for total 6-week course through 11/14/2025 via PICC; anticipate OPAT follow-up; multifactorial cause of recurrence including chronic steroid therapy resulting in altered dermal structure and compromising wound healing, chronic peripheral arterial disease related to now well controlled type II diabetes mellitus, recurrent hospitalizations leading to sarcopenia, nutritional deficiencies, pressure injury to surgical site resulting in recurrent devitalized tissue - Maintain wound VACC Blood cultures no growth at 5 days PT, OT, shift production associate, wound care consultation - Strong emphasis by all team members the importance of regular activity, being out of bed regularly, and engaging in physical therapy #Geriatric frailty // Anasarca and Sarcopenia Consequential of the patient's recurrent hospitalizations, lack of activity, and nutrition - Continue with PT, OT, and shift production associate recommendations - Anticipate placement to SNF, hopefully within next 24 to 48 hours #Postoperative urinary retention // BPH with LUTS Struggling with urinary retention during hospitalization with recurrent bladder scans of greater than 300 mL of urinary retention; Forbes catheter placed in the afternoon on 10/05; likely due to combination of underlying BPH, postoperative retention, and slow-transit constipation - Hold Vibegron given urinary retention - Continue alfuzosin and finasteride - Maintain Forbes catheterization, recommend maintenance through 10/10 with void trial at that time #Slow transit and iatrogenic constipation Patient had been without bowel movement since admission; Milk and Molasses enema administered 10/06 with successful bowel movement thereafter - Continue miralax 17 g p.o. daily, scheduled - Continue bisacodyl 5 mg p.o. 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 Quiroz is an 85-year-old male whose active medical conditions include type II diabetes mellitus complicated by diabetic neuropathy and nephropathy in addition to chronic venous insufficiency, essential hypertension, mixed hyperlipidemia, obstructive sleep apnea, osteoarthritis of multiple joints bilaterally among other chronic medical conditions who presented to the [facility] on 10[facility]01 due to recurrent surgical wound dehiscence with operative intervention on 10/03 with excisional debridement with wound vacuum placement. No acute overnight events Results & Data Results & Data Vital Signs (Past 12 Hours) Vital Signs Temp Pulse Resp BP Pulse Ox O2 Del Method 10/09/25 00:00 36.6 C 59 L 19 120/70 96 Room Air 10/08/25 19:56 Room Air PG Care Time/CCT Total # of Minutes Spent Total Time Spent with Patient: Total time spent is greater than 50% in coordination of care (as documented) at patient's floor/unit and/or counseling patient: Coding Diagnoses Postoperative wound dehiscence T81.31XA Encounter type: initial encounter Deep postoperative wound infection T81.42XA Urinary retention due to benign prostatic hyperplasia N40.1; R33.8 (1) Postoperative wound dehiscence Encounter type: initial encounter Qualified Code(s): T81.31XA - Disruption of external operation (surgical) wound, not elsewhere classified, initial encounter
[2025-10-09 08:00] VITALS: RESP 16; TEMP 97.7
[2025-10-09 09:51] VITALS: BP 142/65; PULSE 81; O2SAT 94
--- NOTE | 2025-10-09 16:33 | Discharge Summary ---
Discharge Summary Date of Service October 09, 2025 Principal Dx & Hospital Course #1 = Principal Diagnosis (1) Postoperative wound dehiscence: (2) Deep postoperative wound infection: (3) Urinary retention due to benign prostatic hyperplasia: Plan In summary this is an 85-year-old male admitted for recurrent wound dehiscence and deep postoperative wound infection #Recurrent wound dehiscence // Recent MSSA bacteremia Underwent surgical intervention for debridement and wound VAC placement on 10/03 without complication; operative room cultures yielded Enterobacter cloacae, with subsequent infectious disease consultation Continue cefepime 2 g IV every 8 hours scheduled for total 6-week course through 11/14/2025 via PICC; OPAT follow-up; multifactorial cause of recurrence including chronic steroid therapy resulting in altered dermal structure and compromising wound healing, chronic peripheral arterial disease related to now well controlled type II diabetes mellitus, recurrent hospitalizations leading to sarcopenia, nutritional deficiencies, pressure injury to surgical site resulting in recurrent devitalized tissue - Maintain wound VACC Blood cultures no growth at 5 days PT, OT, e commerce architect, wound care consulted during hospitalization #Geriatric frailty // Anasarca and Sarcopenia Consequential of the patient's recurrent hospitalizations, lack of activity, and nutrition - Continue with PT, OT, and e commerce architect recommendations #Postoperative urinary retention // BPH with LUTS Struggling with urinary retention during hospitalization with recurrent bladder scans of greater than 300 mL of urinary retention; Forbes catheter placed in the afternoon on 10/05; likely due to combination of underlying BPH, postoperative retention, and slow-transit constipation - Hold Vibegron given urinary retention; consider resuming if void trial is successful at [facility] - Continue alfuzosin and finasteride - Maintain Forbes catheterization, void trial at [facility] #Slow transit and iatrogenic constipation Patient had been without bowel movement since admission; Milk and Molasses enema administered 10/06 with successful bowel movement thereafter - Continue miralax 17 g p.o. daily, scheduled - Continue bisacodyl 5 mg p.o. 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 Patient underwent lumbar laminectomy for evacuation of spinal epidural abscess 08/31 and was started on extended course of IV Cefazolin. Admitted again 09/18 for postop infection that required washout. Patient was discharged to rehab facility with wound vac. Patient states that wound site pain has been progressively worsening over past few days. Wound vac discontinued on Wednesday, has since had copious bloody drainage. Denies purulence, fever, or chills. Denies red flag sx. Per , patient has been largely bedbound, has not been able to participate much in PT due to weakness/deconditioning. Current pain level /10. Discharge Exam General: Elderly male in no acute distress Vital Signs: Reviewed HEENT: Moist mucous membranes Pulmonary: Symmetric chest wall excursion without restriction; clear to auscultation bilaterally Cardiovascular: Regular rate and rhythm without murmurs, rubs, or gallops, S1 and S2 normal; right radial pulse 2+ with trace bilateral lower extremity edema Gastrointestinal: Soft, nontender Skin: Surgical site appears well with wound VAC intact Neurologic: Cranial nerves II through XII grossly intact; diminished but intact and symmetric sensation of the upper and lower extremities, crossing dermatomes and myotomes, in a glove and stocking pattern Musculoskeletal: interosseous muscle atrophy of the hands, with generalized sarcopenia; assistant auto center manager strength 4/5, able to manipulate objects on bedside table well Discharge Plan Discharge Items Patient Disposition: Transfer Longterm Fac Reason For Visit: WOUND DEHISCENCE Discharge Diagnosis: Recurrent wound dehiscence with deep dermal wound bed // Geriatric frailty, anasarca, and sarcopenia // Type II diabetes mellitus with multiple complication s Condition on Discharge: Fair Activity: Per Instructions section Non-emergency contact: Primary Care Provider and Surgeon Call non-emergency contact if: your symptoms worsen Follow-up/Referrals: Ana Lindo DO [Primary Care Provider] - Vitaly Hensley MD [Surgeon] - Diet: Carb Consistent or DM2 Fluids: 2000ml (8 cups) Addtl Attending Provider Instructions: You were admitted to [facility] for recurrent deep wound dehiscence. With respect to your presenting concern, you underwent surgical debridement with wound vacuum placement on 10/03 without complication. Operative room cultures yielded Enterobacter cloacae, subsequent infectious disease consultation with recommendation to continue cefepime 2 g IV every 8 hours for total 6-week course through 11/14/2025 with outpatient follow-up. Your blood cultures were without growth at 5 days. To facilitate wound healing, it is critical that you participate fully with physical therapy, Occupational Therapy, regularly getting out of bed, changing position to offload pressure to the wound site, and maintain adherence with your medication regimen. During your hospitalization there was exacerbation of your chronic lower urinary tract symptoms related to both your benign prostatic hyperplasia in addition to slow transit/iatrogenic constipation. A Forbes catheter was placed and maintained at the time of discharge with anticipated void trial while at your [facility] facility. Thank you for choosing [facility] as your healthcare provider. Pending Studies at Discharge: No Stand-Alone Forms: My [facility] Skilled Items Patient informed of condition?: Yes DNR: No Discharge Level of Care: Skilled Communicable Disease: No Discharge Prognosis: Stable Lines: PICC Urinary Catheter: Yes (Void trial on 10/10) Medications and DC Order Prescriptions: New acetaminophen [Tylenol Extra Strength] 500 mg Tablet 1,000 mg PO Q8H PRN (Reason: pain) 30 Days Qty: 90 0RF duloxetine 30 mg Capsule,Delayed Release(Dr/Ec) 30 mg PO DAILY 30 Days Qty: 30 0RF duloxetine 60 mg Capsule,Delayed Release(Dr/Ec) 60 mg PO DAILY 30 Days Qty: 30 0RF naloxone 4 mg/actuation spray,non-aerosol 0.1 mg intranasal Q5M PRN (Reason: opioid overdose) 30 Days Qty: 2 0RF bisacodyl [Gentle Laxative (bisacodyl)] 5 mg Tablet,Delayed Release (Dr/Ec) 5 mg PO HS 30 Days Qty: 30 0RF polyethylene glycol 3350 [Miralax] 17 gram Powder In Packet 17 g PO DAILY 30 Days Qty: 30 0RF Continued amlodipine 10 mg tablet 10 mg PO QAM aspirin [Adult Low Dose Aspirin] 81 mg tablet,delayed release (DR/EC) 81 mg PO HS potassium chloride 20 mEq tablet extended release 20 meq PO QAM Qty: 90 1RF metformin 1,000 mg tablet 1,000 mg PO BID Qty: 180 1RF folic acid 1 mg tablet 1 mg PO QAM amiodarone 200 mg tablet 200 mg PO QAM baclofen 10 mg tablet 10 mg PO AMHS furosemide [Lasix] 20 mg tablet 20 mg PO QAM finasteride 5 mg tablet 5 mg PO QAM Eliquis 5 mg tablet 5 mg PO AMHS hydrocodone-acetaminophen 5-325 mg tablet 1 tab PO Q6H MDD APAP 3g PRN (Reason: pain 9-10) pantoprazole 40 mg tablet,delayed release (DR/EC) 40 mg PO QAM metoprolol succinate 25 mg tablet extended release 24 hr 25 mg PO QAM losartan 100 mg tablet 100 mg PO HS multivitamin Tablet 1 tab PO HS simvastatin 20 mg tablet 20 mg PO HS tamsulosin 0.4 mg Capsule 0.4 mg PO QAM protein supplement Liquid 1 ea PO BID Rx Instructions: 30 ml every day and evening shift magnesium oxide 400 mg (241.3 mg magnesium) Tablet 400 mg PO QAM Qty: 30 0RF Changed ferrous sulfate 325 mg (65 mg iron) tablet 325 mg PO .MOWEFR Qty: 0 0RF Discontinued docusate sodium [Stool Softener] 100 mg capsule 100 mg PO HS cefazolin 2 gram recon soln 2 g IV Q8H 35 Days Rx Instructions: Cefazolin 2 g IV every 8 hours via PICC line start 09/26/25 until 10/11/2025 @ 23:59 Gemtesa 75 mg tablet 75 mg PO QAM acetaminophen 325 mg Tablet 650 mg PO Q6 MDD 3g PRN (Reason: temp>100) acetaminophen 325 mg Tablet 650 mg PO Q6 MDD 3g PRN (Reason: pain 1-8) acetaminophen 500 mg Tablet 500 mg PO TID Discharge Orders: Discharge Order (Routine); Ordered 10/09/25 Ordered By: Simon Valencia Admission Data Admit Date/Time: 10/01/25 16:12 Attending Provider: Simon Valencia Admit Provider: Isael Morrison Primary Care Provider: Ana Lindo Other Providers: IRB Approved Study,Hermila; Jonathan Patel; Cole Kelley; Monica Mina; Yanni Reyes; Graeme Otoole; Vitaly Hensley; Rodo Grant; Graeme Mina; Jonathan Myrick; [facility] Other Interventions: Discharge Summary Assessment (RN) Last Done: 10/09/25 13:13 Hospital Stay Data Consultations 10/01/25 14:41 Consult Orthopedic Spine Surgery Stat 10/01/25 14:46 ED Decision to Admit Stat 10/03/25 14:10 Consult Infectious Diseases Routine Procedures Performed Operation Date: 10/03/25 09:20 Actual Procedures p Lumbar Wound Incision and Drainage with Wound Vac(Not Applicable) - Vitaly Hensley MD Pending Results Patient Have Any Pending Studies at Discharge: No Discharge Instructions Given to Patient (Per Discharging Provider) You were admitted to [facility] for recurrent deep wound dehiscence. With respect to your presenting concern, you underwent surgical debridement with wound vacuum placement on 10/03 without complication. Operative room cultures yielded Enterobacter cloacae, subsequent infectious disease consultation with recommendation to continue cefepime 2 g IV every 8 hours for total 6-week course through 11/14/2025 with outpatient follow-up. Your blood cultures were without growth at 5 days. To facilitate wound healing, it is critical that you participate fully with physical therapy, Occupational Therapy, regularly getting out of bed, changing position to offload pressure to the wound site, and maintain adherence with your medication regimen. During your hospitalization there was exacerbation of your chronic lower urinary tract symptoms related to both your benign prostatic hyperplasia in addition to slow transit/iatrogenic constipation. A Forbes catheter was placed and maintained at the time of discharge with anticipated void trial while at your [facility] facility. Thank you for choosing [facility] as your healthcare provider. Total Time Total Time Spent Total Time Spent (In Minutes): I personally spent 60 minutes in the coordination of today's discharge including bedside counseling, physical exam, medication reconciliation and coordination of discharge with the assistance of case management Coding Level of Care Code 74207 INP/OBS DISCH >30 MIN Diagnoses Postoperative wound dehiscence T81.31XA Encounter type: initial encounter Deep postoperative wound infection T81.42XA Urinary retention due to benign prostatic hyperplasia N40.1; R33.8
== END 2025-10-09 13:55 | DRG 857 ==
LOC: ED 13:57 → EDINP 16:12 → SUATTDRO 16:12 → 3E 18:10

== ENCOUNTER 2025-10-14 11:23 | Inpatient (IN) ==
[2025-10-14 12:09] LABS: Hematocrit (blood only) 26.3 % (42.0-52.0); Hemoglobin 8.3 g/dL (14.0-18.0); Immature Granulocytes # (auto) 0.08 K/uL (0.01-0.20); Immature Granulocytes % (auto) 0.9 %; Mean Corpuscular Hemoglobin 27.1 pg (25.0-34.0); Mean Corpuscular Volume 85.9 fL (80.0-100.0); Platelet Count 247 K/uL (130-400); RDW Standard Deviation 55.3 fL (36.4-46.3); Red Blood Count 3.06 M/uL (4.70-6.10); White Blood Count 8.52 K/ul (4.8-10.8)
[2025-10-14 12:27] LABS: Alanine Aminotransferase 7.0 U/L (7-52); Albumin Level 2.7 gm/dl (3.4-5.0); Alkaline Phosphatase 103.0 U/L (34-104); Anion Gap 5.0 (3-11); Bilirubin,Total 0.4 mg/dl (0.2-1.0); Blood Urea Nitrogen 77.0 mg/dl (6-23); Calcium 9.2 mg/dl (8.6-10.3); Carbon Dioxide 23.0 mmol/L (21-32); Chloride 102.0 mmol/L (98-107); Creatinine Clr Calc Pharmacy 24.0 ml/min; Glucose 121.0 mg/dl (70-99(Fasting)); Magnesium 2.3 mg/dl (1.7-2.4); Potassium 6.0 mmol/L (3.5-5.1); Sodium 130.0 mmol/L (136-145); Total Protein 6.7 gm/dl (6.0-8.3)
--- NOTE | 2025-10-14 12:30 | XRay Report ---
Exam: AP Portable Chest Exam reason: Sepsis Comparison: 09/23/2025 Technique: A single AP portable view of the chest was obtained Findings: The lungs are well-expanded. There is subtle hazy gradual opacity noted inferiorly on the left. There is mild prominence of the right infrahilar vascular markings. There is redemonstration of a right sided PICC line. The cardiac and mediastinal silhouettes are within normal limits. There is no pneumothorax and no acute bony abnormalities are seen. Impression: 1. Questionable small left-sided pleural effusion. 2. Prominence of the vascular structures in the right infrahilar region is likely exaggerated by patient rotation. Electronically signed by Vern Ortiz 10-14-2025 12:29 PM
--- NOTE | 2025-10-14 13:32 | Emergency Department Note ---
Impression & Plan Acute hyperkalemia, JOSH (acute kidney injury), Acute hyponatremia, Dehydration, Acute confusion ED Provider Note NAME: ROGE WOODSON AGE: 85 SEX: M : 1940 ARRIVES VIA: Ambulance INFORMANT: Patient, ED PROVIDER(S): Jeremy Bhandari MD CHIEF COMPLAINT: Increased confusion HPI: This is a 85-year-old male present for increasing confusion. Patient was recently discharged after a infected surgical wound to his back. He has been getting IV antibiotics for this. With past 2 to 3 days has noticed increasing confusion as per . He is having slight hypotension and bradycardia as per the nursing facility. They advised patient be seen today in the ER for this. Patient recently had a Forbes placement while in the hospital on last admission. This been draining well. Patient himself reports feeling crummy without other specific complaints including pain. No fevers or chills. ROS: See above HPI for pertinent positives & negatives. A total of 10 systems reviewed and were otherwise negative. PAST MEDICAL HISTORY: See Below PAST SURGICAL HISTORY: See Below FAMILY HISTORY: See Below SOCIAL HISTORY: See Below HOME MEDICATIONS: See Below ALLERGIES: See Below VITALS: See Below PHYSICAL EXAMINATION: General: Chronically ill-appearing Head: Normocephalic and atraumatic Eyes: Normal inspection, extraocular muscles intact Ear, nose, throat: Normal external exam Neck: Normal range of motion Respiratory: lungs clear to auscultation bilaterally Cardiovascular: Regular rate/rhythm, no murmur GI: soft, nontender, no guarding or rebound Back: Wound VAC in place without surrounding erythema, pus or drainage Extremities: nontender, moves all extremities Neuro: The patient awake and alert, appropriately conversive, no focal deficits, symmetric faces Skin: Warm, dry, and intact MEDICAL DECISION MAKING: This is a an 85-year-old male present for increasing confusion. Will do screening basic blood work, urinalysis, blood cultures, procalcitonin - Procalcitonin currently negative. No significant leukocytosis. Stable anemia. - There is a significant hyponatremia as well as hyperkalemia that is noted as well as new JOSH. - Hyper-K may be the cause of patient's current bradycardia. He has been in the 40s previously on admission however this is more persistent. He is not symptomatic from this however. - Will treat this with fluids, calcium gluconate, albuterol, insulin, glucose - Urinalysis reveals signs of blood without infection - Will admit the patient for JOSH, dehydration, hyperkalemia and hyponatremia -Discussed CODE STATUS extensively with patient and . He is DNR and DNI at this time. Differential diagnosis: Cystitis, worsening wound infection, sepsis, JOSH, Independent History obtained from: Diagnostics interpreted by me: ECG: ECG independently interpreted by me with junctional versus sinus bradycardia at a rate of 44, left axis deviation, normal QTc and QRS no ST segment elevations consistent with STEMI criteria none Cardiac Monitoring: An order was placed for continuous cardiac monitoring. The monitor shows a rate of 42 with sinus bradycardia rhythm. Critical Care Note: I have personally spent 36 minutes of critical care time in the direct management of this patient. This includes bedside care, interpretation of diagnostic studies, and testing, discussion with consultants, patient, and family members, and other required patient management activities. This 36 minutes is in excess of all separately billable procedures. Past Med/Surg History Problem List (Updated 10/14/25 @ 15:30 by Giacomo Park MD) Type 2 diabetes mellitus MSSA bacteremia Bradycardia Hyperkalemia Acute worsening of stage 3 chronic kidney disease Metabolic encephalopathy Volume depletion Urinary retention due to benign prostatic hyperplasia Venous stasis ulcers Paroxysmal atrial flutter Postoperative wound dehiscence (Acute) Deep postoperative wound infection (Acute) Ambulatory dysfunction (Chronic) Psoriatic arthritis (Chronic) Microscopic hematuria (Chronic) Diabetic ulcer of left foot (Chronic) Diabetic ulcer of right foot (Chronic) Hiatal hernia GERD (gastroesophageal reflux disease) Well controlled, stable Cervical facet joint syndrome Cervical dystonia Post-laminectomy syndrome Posterior cervical laminectomy and fusion C3-6 Thrombocytopenia TAYLOR (obstructive sleep apnea) Could not tolerate BIPAP Diabetic peripheral neuropathy associated with type 2 diabetes mellitus Osteoarthritis Diabetic nephropathy associated with type 2 diabetes mellitus Venous insufficiency (chronic) (peripheral) (Chronic) Depression (Chronic) Hypertension controlled, stable per pt Hyperlipidemia Chronic steroid use Psoriatic arthritis Hepatic steatosis 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 Chronic anemia Chronic/stable, PCP monitoring BPH with obstruction/lower urinary tract symptoms Medical History (Updated 10/14/25 @ 15:30 by Giacomo Park MD) Acute blood loss anemia Wound dehiscence, surgical Discitis of cervical region History of compression fracture of spine 2019, had cervical laminectomy 04/2020, no recent issues History of osteomyelitis cervical spine (2019) Dupuytren's contracture of left hand History of elevated prostate specific antigen (PSA) History of DVT (deep vein thrombosis) Traumatic open wound of right lower leg with delayed healing Lumbar discitis MSSA bacteremia Lumbar radiculopathy, acute 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 Loss of protective sensation of skin of deformed foot COVID-19 Hyperbilirubinemia Trigger finger of right hand 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 Scapular fracture Tendon rupture, Achilles Hx of diabetic foot ulcer resolved (2021) Surgical History (Updated 10/08/25 @ 00:07 by Background Daemon) History of reverse total replacement of right shoulder joint S/P lumbar laminectomy Status post reverse total replacement of right shoulder (~03/2023) S/P foot surgery, left (09/2023) excision w/ amputation of L 5th toe and partial amputation L 4th toe Hx of oral surgery dental implants History of colonoscopy Status post rotator cuff repair S/P arthroscopy of right shoulder 12/2021 S/P rotator cuff repair Left S/P laminectomy (04/25/20) Cervical 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 S/P arthroscopy of shoulder (01/2016) Left S/P left knee arthroscopy (10/2015) H/O elbow surgery R/L S/P hammer toe correction (11/2013) arthrodesis R toe Status post carpal tunnel release of both wrists H/O bilateral cataract extraction History of tonsillectomy S/P laparoscopic cholecystectomy (07/2018) Hx of difficult intubation - History of difficult intubation in 2007 at [facility]. Per record review they were unable to intubate on 3 attempts. Fast track LMA were unsuccessful. Were able to mask vent with 2 people. Intubated with nasal fiberoptic. - Anesthesia records from 2018 lap adelita showed Grade 1 view with Glidescope #4, smooth intubation - Right shoulder arthroscopy, RCR (12/11/21): LMA#5 placed without difficulty + PNB at [facility]. Family History Mother Cardiac disorder Myocardial infarction Aunt Family history of diabetes mellitus Uncle Family history of diabetes mellitus Other No family history of adverse response to anesthesia Denies family history of Ovarian cancer Prostate cancer Breast cancer Colorectal cancer Social History Smoking Status: Never smoker Tobacco Type: Cigarettes Age Started Using Tobacco: 14; Age Quit Using Tobacco: 44; packs per day: 2; Second Hand Exposure: No; Do You Dip or Chew Tobacco: No; Hx Alcohol Use: No Hx Substance Use: No Preferred Language: Burmese Communication Ability: Effective Visual Impairment: Limited Hearing Ability: Hard of Hearing 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 Other children live further away. Feels Safe at Home: Yes Diet: diabetic caffeine: Yes during the past year weight has: remained stable Dental Care, Regularly: Yes Physical Activity Frequency: Daily Physical Activity Frequency Comment: very active around house Seatbelt Use: always Sunscreen Use: Yes Assistive Devices: Cane and Walker Allergies Allergies Allergy/AdvReac Type Severity Reaction Status Date / Time amoxicillin Allergy Intermediate lip Verified 10/03/25 09:20 swelling clavulanic acid Allergy Intermediate lip Verified 10/03/25 09:20 swelling Sulfa (Sulfonamide Allergy Intermediate lip Verified 10/03/25 09:20 Antibiotics) swelling VINCE Inhibitors Allergy Unknown unknown Verified 10/03/25 09:20 clarithromycin AdvReac Intermediate GI upset Verified 10/03/25 09:20 Home Meds Home Medications Medication Instructions Recorded Confirmed aspirin 81 mg tablet,delayed 81 mg PO HS 06/29/18 10/14/25 release (Adult Low Dose Aspirin) amlodipine 10 mg tablet 10 mg PO QAM 09/21/23 10/14/25 folic acid 1 mg tablet 1 mg PO QAM 03/07/24 10/14/25 amiodarone 200 mg tablet 200 mg PO QAM 10/01/25 10/14/25 apixaban 5 mg tablet (Eliquis) 5 mg PO AMHS 10/01/25 10/14/25 baclofen 10 mg tablet 10 mg PO AMHS 10/01/25 10/14/25 finasteride 5 mg tablet 5 mg PO QAM 12/01/25 12/14/25 furosemide 20 mg tablet (Lasix) 20 mg PO QAM 10/01/25 10/14/25 hydrocodone 5 mg-acetaminophen 325 1 tab PO Q6H PRN pain 9-10 10/01/25 10/14/25 mg tablet losartan 100 mg tablet 100 mg PO HS 10/01/25 10/14/25 metoprolol succinate 25 mg 25 mg PO QAM 10/01/25 10/14/25 tablet,extended release 24 hr multivitamin 1 tab PO HS 10/01/25 10/14/25 pantoprazole 40 mg tablet,delayed 40 mg PO QAM 10/01/25 10/14/25 release protein supplement 1 ea PO BID 10/01/25 10/14/25 simvastatin 20 mg tablet 20 mg PO HS 10/01/25 10/14/25 tamsulosin 0.4 mg capsule 0.4 mg PO QAM 10/01/25 10/14/25 Previous Rx's Medication Instructions Recorded magnesium oxide 400 mg (241.3 mg 400 mg PO QAM #30 tabs 04/29/25 magnesium) tablet potassium chloride 20 mEq 20 meq PO QAM #90 tabs 07/03/25 tablet,extended release metformin 1,000 mg tablet 1,000 mg PO BID #180 tabs 09/20/25 acetaminophen 500 mg tablet 1,000 mg (2 x 500 mg) PO Q8H PRN 10/09/25 (Tylenol Extra Strength) pain 30 days #90 tabs bisacodyl 5 mg tablet,delayed 5 mg PO HS 30 days #30 tabs 10/09/25 release (Gentle Laxative (bisacodyl)) duloxetine 30 mg capsule,delayed 30 mg PO DAILY 30 days #30 caps 10/09/25 release duloxetine 60 mg capsule,delayed 60 mg PO DAILY 30 days #30 caps 10/09/25 release ferrous sulfate 325 mg (65 mg 325 mg PO .MOWEFR #0 tabs 10/09/25 iron) tablet naloxone 4 mg/actuation nasal spray 0.1 mg intranasal Q5M PRN opioid 10/09/25 overdose 30 days #2 ea polyethylene glycol 3350 17 gram 17 g PO DAILY 30 days #30 ea 10/09/25 oral powder packet (Miralax) Results & Data (ED) Vital Signs Vital Signs - 24 hr 10/14/25 11:35 10/14/25 11:35 10/14/25 11:35 Temperature 36.6 C 36.7 C Temperature Source Temporal Artery Scan Oral Pulse Rate 42 L Pulse Rate [Apical] 43 L Pulse Rate from SpO2 Sensor Respiratory Rate 18 16 Respiratory Effort / Characteristics Non-Labored Spontaneous Non-Labored Spontaneous Respiratory Depth Normal Normal Respiratory Pattern Regular Regular Blood Pressure 122/53 L Blood Pressure [Right Arm] 122/53 L Blood Pressure Mean 76 Blood Pressure Mean [Right Arm] 76 Blood Pressure Position Sitting Pulse Oximetry 96 96 95 Oxygen Delivery Method Room Air Room Air Room Air Sepsis Recent Fever Within 48 Hours No Sepsis New/Unexplained Change in Mental Status N/A Sepsis Action Taken by Nursing No Action Required 10/14/25 11:49 10/14/25 12:00 10/14/25 12:15 Temperature Temperature Source Pulse Rate 42 L 43 L 39 L Pulse Rate [Apical] Pulse Rate from SpO2 Sensor Respiratory Rate 14 12 Respiratory Effort / Characteristics Respiratory Depth Respiratory Pattern Blood Pressure 120/48 L Blood Pressure [Right Arm] Blood Pressure Mean 72 Blood Pressure Mean [Right Arm] Blood Pressure Position Pulse Oximetry 95 Oxygen Delivery Method Sepsis Recent Fever Within 48 Hours Sepsis New/Unexplained Change in Mental Status Sepsis Action Taken by Nursing 10/14/25 12:30 10/14/25 12:45 10/14/25 13:00 Temperature Temperature Source Pulse Rate 45 L 46 L 38 L Pulse Rate [Apical] Pulse Rate from SpO2 Sensor 45 L 46 L 38 L Respiratory Rate 13 16 14 Respiratory Effort / Characteristics Respiratory Depth Respiratory Pattern Blood Pressure 115/56 L 115/53 L Blood Pressure [Right Arm] Blood Pressure Mean 75 73 Blood Pressure Mean [Right Arm] Blood Pressure Position Pulse Oximetry 96 98 97 Oxygen Delivery Method Sepsis Recent Fever Within 48 Hours Sepsis New/Unexplained Change in Mental Status Sepsis Action Taken by Nursing 10/14/25 13:15 10/14/25 13:30 10/14/25 13:45 Temperature Temperature Source Pulse Rate 39 L 39 L 40 L Pulse Rate [Apical] Pulse Rate from SpO2 Sensor 40 L 39 L 40 L Respiratory Rate 12 12 17 Respiratory Effort / Characteristics Respiratory Depth Respiratory Pattern Blood Pressure 110/46 L Blood Pressure [Right Arm] Blood Pressure Mean 67 Blood Pressure Mean [Right Arm] Blood Pressure Position Pulse Oximetry 95 96 95 Oxygen Delivery Method Sepsis Recent Fever Within 48 Hours Sepsis New/Unexplained Change in Mental Status Sepsis Action Taken by Nursing 10/14/25 14:00 10/14/25 14:15 10/14/25 14:30 Temperature Temperature Source Pulse Rate 37 L 37 L 42 L Pulse Rate [Apical] Pulse Rate from SpO2 Sensor 38 L 37 L 42 L Respiratory Rate 13 10 L 12 Respiratory Effort / Characteristics Respiratory Depth Respiratory Pattern Blood Pressure 115/48 L Blood Pressure [Right Arm] Blood Pressure Mean 70 Blood Pressure Mean [Right Arm] Blood Pressure Position Pulse Oximetry 95 94 96 Oxygen Delivery Method Sepsis Recent Fever Within 48 Hours Sepsis New/Unexplained Change in Mental Status Sepsis Action Taken by Nursing 10/14/25 14:42 10/14/25 14:45 10/14/25 15:00 Temperature Temperature Source Pulse Rate 42 L 38 L 47 L Pulse Rate [Apical] Pulse Rate from SpO2 Sensor 47 L Respiratory Rate 12 14 14 Respiratory Effort / Characteristics Respiratory Depth Respiratory Pattern Blood Pressure 117/54 L 117/54 L 116/53 L Blood Pressure [Right Arm] Blood Pressure Mean 75 75 74 Blood Pressure Mean [Right Arm] Blood Pressure Position Pulse Oximetry 100 Oxygen Delivery Method Sepsis Recent Fever Within 48 Hours Sepsis New/Unexplained Change in Mental Status Sepsis Action Taken by Nursing 10/14/25 15:15 Temperature Temperature Source Pulse Rate Pulse Rate [Apical] Pulse Rate from SpO2 Sensor Respiratory Rate 18 Respiratory Effort / Characteristics Respiratory Depth Normal Respiratory Pattern Blood Pressure Blood Pressure [Right Arm] Blood Pressure Mean Blood Pressure Mean [Right Arm] Blood Pressure Position Pulse Oximetry Oxygen Delivery Method Sepsis Recent Fever Within 48 Hours Sepsis New/Unexplained Change in Mental Status Sepsis Action Taken by Nursing Laboratory Data 10/14/25 11:49 10/14/25 11:49 Lab Results 10/14/25 10/14/25 10/14/25 Range/Units 11:49 11:50 15:05 WBC 8.52 (4.8-10.8) K/ul RBC 3.06 L (4.70-6.10) M/uL Hgb 8.3 L (14.0-18.0) g/dL Hct 26.3 L (42.0-52.0) % MCV 85.9 (80.0-100.0) fL MCH 27.1 (25.0-34.0) pg MCHC 31.6 L (32.0-36.0) g/dL RDW Std Deviation 55.3 H (36.4-46.3) fL RDW Coeff of Caren 17.6 H (11.5-14.5) % Plt Count 247 (130-400) K/uL MPV 10.8 (9.4-12.4) fL Immature Gran % (Auto) 0.9 % Neut % (Auto) 66.3 % Lymph % (Auto) 18.0 % Bracken % (Auto) 10.6 % Eos % (Auto) 3.6 % Baso % (Auto) 0.6 % Neut # (Auto) 5.65 (1.40-6.50) K/uL Lymph # (Auto) 1.53 (1.20-3.40) K/uL Bracken # (Auto) 0.90 H (0.11-0.59) K/uL Eos # (Auto) 0.31 (0.00-0.50) K/uL Baso # (Auto) 0.05 (0.00-0.20) K/uL Immature Gran # (Auto) 0.08 (0.01-0.20) K/uL Sodium 130 L (136-145) mmol/L Potassium 6.0 H (3.5-5.1) mmol/L Chloride 102 (98-107) mmol/L Carbon Dioxide 23 (21-32) mmol/L Anion Gap 5 (3-11) BUN 77 H (6-23) mg/dl Creatinine 1.89 H (0.6-1.4) mg/dl Est Cr Clr Drug Dosing 24.0 ml/min eGFR 33.93 BUN/Creatinine Ratio 40.7 H (10-20) Glucose 121 H (70-99(Fasting)) mg/dl POC Glucose (70-99) mg/dl Lactate 2.0 (0.4-2.0) mmol/L Calcium 9.2 (8.6-10.3) mg/dl Magnesium 2.3 (1.7-2.4) mg/dl Total Bilirubin 0.4 (0.2-1.0) mg/dl Direct Bilirubin 0.1 (0-0.2) mg/dl AST 13 (13-39) U/L ALT 7 (7-52) U/L Alkaline Phosphatase 103 (34-104) U/L Troponin I High Sens 6.1 (0-20) pg/ml Total Protein 6.7 (6.0-8.3) gm/dl Albumin 2.7 L (3.4-5.0) gm/dl Procalcitonin 0.29 (0-0.5) ng/ml Urine Color Yellow Urine Appearance Cloudy A (Clear) Urine pH 5.0 (4.5-7.5) Ur Specific [place] 1.014 (1.000-1.030) Urine Protein 1+ H (Negative) Urine Glucose (UA) Negative (Negative) Urine Ketones Negative (Negative) Urine Blood 2+ H (Negative) Urine Nitrite Negative (Negative) Urine Bilirubin Negative (Negative) Urine Urobilinogen Negative (Negative) Ur Leukocyte Esterase Negative (Negative) Urine WBC (Auto) 0-5 (0-5) /hpf Urine RBC (Auto) 11-20 H (0-2) /hpf U Hyaline Cast (Auto) >20 H (0-2) /lpf U Epithel Cells (Auto) 0-2 (0-2) /hpf Urine Bacteria (Auto) None Seen (None Seen) Urine Comment 10/14/25 Range/Units 15:12 WBC (4.8-10.8) K/ul RBC (4.70-6.10) M/uL Hgb (14.0-18.0) g/dL Hct (42.0-52.0) % MCV (80.0-100.0) fL MCH (25.0-34.0) pg MCHC (32.0-36.0) g/dL RDW Std Deviation (36.4-46.3) fL RDW Coeff of Caren (11.5-14.5) % Plt Count (130-400) K/uL MPV (9.4-12.4) fL Immature Gran % (Auto) % Neut % (Auto) % Lymph % (Auto) % Bracken % (Auto) % Eos % (Auto) % Baso % (Auto) % Neut # (Auto) (1.40-6.50) K/uL Lymph # (Auto) (1.20-3.40) K/uL Bracken # (Auto) (0.11-0.59) K/uL Eos # (Auto) (0.00-0.50) K/uL Baso # (Auto) (0.00-0.20) K/uL Immature Gran # (Auto) (0.01-0.20) K/uL Sodium (136-145) mmol/L Potassium (3.5-5.1) mmol/L Chloride (98-107) mmol/L Carbon Dioxide (21-32) mmol/L Anion Gap (3-11) BUN (6-23) mg/dl Creatinine (0.6-1.4) mg/dl Est Cr Clr Drug Dosing ml/min eGFR BUN/Creatinine Ratio (10-20) Glucose (70-99(Fasting)) mg/dl POC Glucose 233 H (70-99) mg/dl Lactate (0.4-2.0) mmol/L Calcium (8.6-10.3) mg/dl Magnesium (1.7-2.4) mg/dl Total Bilirubin (0.2-1.0) mg/dl Direct Bilirubin (0-0.2) mg/dl AST (13-39) U/L ALT (7-52) U/L Alkaline Phosphatase (34-104) U/L Troponin I High Sens (0-20) pg/ml Total Protein (6.0-8.3) gm/dl Albumin (3.4-5.0) gm/dl Procalcitonin (0-0.5) ng/ml Urine Color Urine Appearance (Clear) Urine pH (4.5-7.5) Ur Specific [place] (1.000-1.030) Urine Protein (Negative) Urine Glucose (UA) (Negative) Urine Ketones (Negative) Urine Blood (Negative) Urine Nitrite (Negative) Urine Bilirubin (Negative) Urine Urobilinogen (Negative) Ur Leukocyte Esterase (Negative) Urine WBC (Auto) (0-5) /hpf Urine RBC (Auto) (0-2) /hpf U Hyaline Cast (Auto) (0-2) /lpf U Epithel Cells (Auto) (0-2) /hpf Urine Bacteria (Auto) (None Seen) Urine Comment Administered Medications Sodium Bicarbonate 150 meq/ (Dextrose) 1,150 mls @ 290 mls/hr IV .[id number] STA Stop: 10/14/25 18:18 Last Admin: 10/14/25 15:04 Dose: 290 mls/hr Documented By: CEF Discontinued Medications Albuterol (Albuterol 0.5% Neb Soln 2.5 Mg/0.5 Ml Vial) 10 mg NEB NOW STA Stop: 10/14/25 14:22 Last Admin: 10/14/25 14:53 Dose: 10 mg Documented By: CEF Dextrose (Dextrose 50% 50 Ml Syringe) 50 ml IV NOW STA Stop: 10/14/25 14:22 Last Admin: 10/14/25 14:47 Dose: 50 ml Documented By: CEF Insulin Human Regular 10 units (/ Syringe) 9.9 mls @ 3 mls/sec IV ONE STA Stop: 10/14/25 14:22 Last Admin: 10/14/25 14:47 Dose: 3 mls/sec Documented By: JAE Co-signed By: NEWTON Calcium Gluconate () 1,000 mg in 60 mls @ 240 mls/hr IV NOW STA Stop: 10/14/25 14:35 Last Infusion: 10/14/25 15:02 Dose: Infused Documented By: Admin: 10/14/25 14:44 Dose: 240 mls/hr Documented By: CEF Sodium Chloride (Nss) 1,000 mls @ 999 mls/hr IV .Q1H1M ONE Stop: 10/14/25 15:26 Last Admin: 10/14/25 14:51 Dose: 999 mls/hr Documented By: CEF Imaging Data Radiologist's Impression: Chest X-Ray 10/14/25 11:48 Exam: AP Portable Chest Exam reason: Sepsis Comparison: 09/23/2025 Technique: A single AP portable view of the chest was obtained Findings: The lungs are well-expanded. There is subtle hazy gradual opacity noted inferiorly on the left. There is mild prominence of the right infrahilar vascular markings. There is redemonstration of a right sided PICC line. The cardiac and mediastinal silhouettes are within normal limits. There is no pneumothorax and no acute bony abnormalities are seen. Impression: 1. Questionable small left-sided pleural effusion. 2. Prominence of the vascular structures in the right infrahilar region is likely exaggerated by patient rotation. Electronically signed by Vern Ortiz 10-14-2025 12:29 PM Discharge Plan Visit Data Chief Complaint: Altered Mental Status ED Provider: Jeremy Bhandari Discharge Problem: Acute hyperkalemia, JOSH (acute kidney injury), Acute hyponatremia, Dehydration, Acute confusion Patient Disposition: Admitted As Inpatient Condition: Serious Forms Stand Alone Forms: [facility] Prescriptions Prescriptions: No Action amlodipine 10 mg tablet 10 mg PO QAM aspirin [Adult Low Dose Aspirin] 81 mg tablet,delayed release (DR/EC) 81 mg PO HS potassium chloride 20 mEq tablet extended release 20 meq PO QAM Qty: 90 1RF metformin 1,000 mg tablet 1,000 mg PO BID Qty: 180 1RF folic acid 1 mg tablet 1 mg PO QAM amiodarone 200 mg tablet 200 mg PO QAM baclofen 10 mg tablet 10 mg PO AMHS furosemide [Lasix] 20 mg tablet 20 mg PO QAM finasteride 5 mg tablet 5 mg PO QAM Eliquis 5 mg tablet 5 mg PO AMHS hydrocodone-acetaminophen 5-325 mg tablet 1 tab PO Q6H MDD APAP 3g PRN (Reason: pain 9-10) pantoprazole 40 mg tablet,delayed release (DR/EC) 40 mg PO QAM metoprolol succinate 25 mg tablet extended release 24 hr 25 mg PO QAM losartan 100 mg tablet 100 mg PO HS multivitamin Tablet 1 tab PO HS simvastatin 20 mg tablet 20 mg PO HS tamsulosin 0.4 mg Capsule 0.4 mg PO QAM protein supplement Liquid 1 ea PO BID Rx Instructions: 30 ml every day and evening shift acetaminophen [Tylenol Extra Strength] 500 mg Tablet 1,000 mg PO Q8H PRN (Reason: pain) 30 Days Qty: 90 0RF duloxetine 30 mg Capsule,Delayed Release(Dr/Ec) 30 mg PO DAILY 30 Days Qty: 30 0RF duloxetine 60 mg Capsule,Delayed Release(Dr/Ec) 60 mg PO DAILY 30 Days Qty: 30 0RF naloxone 4 mg/actuation spray,non-aerosol 0.1 mg intranasal Q5M PRN (Reason: opioid overdose) 30 Days Qty: 2 0RF bisacodyl [Gentle Laxative (bisacodyl)] 5 mg Tablet,Delayed Release (Dr/Ec) 5 mg PO HS 30 Days Qty: 30 0RF polyethylene glycol 3350 [Miralax] 17 gram Powder In Packet 17 g PO DAILY 30 Days Qty: 30 0RF ferrous sulfate 325 mg (65 mg iron) tablet 325 mg PO .MOWEFR Qty: 0 0RF magnesium oxide 400 mg (241.3 mg magnesium) Tablet 400 mg PO QAM Qty: 30 0RF Referrals Referrals: Ana Lindo DO [Primary Care Provider] -
[2025-10-14] MEDS: CALCIUM GLUCONATE 1,000 MG/60 ML BAG IV STA (14:44)
[2025-10-14] MEDS: INSULIN HUMAN REGULAR PER UNIT 10 UNITS in SYRINGE 9.9 ML IV STA (14:47)
[2025-10-14] MEDS: DEXTROSE 50% 50 ML SYRINGE IV STA (14:47)
[2025-10-14] MEDS: SODIUM CHLORIDE 0.9% 1,000 ML IV ONE (14:51)
[2025-10-14] MEDS: ALBUTEROL 0.5% NEB SOLN 2.5 MG/0.5 ML VIAL NEB STA (14:53)
[2025-10-14] MEDS: SODIUM BICARBONATE 8.4% 150 MEQ in DEXTROSE 5% 1,000 ML IV STA (15:04)
[2025-10-14 15:27] LABS: Appearance Urine Cloudy (Clear); Bacteria Urine Automated None Seen (None Seen); Cast Urine Automated >20 /lpf (0-2); Epithelial Cell Urine Auto 0-2 /hpf (0-2); Glucose Urine UA Negative (Negative); WBC Urine Automated 0-5 /hpf (0-5)
--- NOTE | 2025-10-14 15:32 | History & Physical Report ---
Date of Service October 14, 2025 Assessment & Plan (1) Volume depletion: Plan: IV fluids ordered. Monitor urine output. (2) Metabolic encephalopathy: Plan: Supportive care. Treat volume depletion and MSSA (3) Acute worsening of stage 3 chronic kidney disease: Plan: Lasix on hold. IV fluids ordered. Monitor urine output. Serial labs (4) Hyperkalemia: Plan: Treat acute kidney failure. Avoid VINCE inhibitors or ARB's. No potassium supplements. IV fluids. Monitor urine output. Serial labs (5) Bradycardia: Plan: He appears to have chronic atrial fibrillation. Telemetry. Hold metoprolol. (6) MSSA bacteremia: Plan: Continue cefepime 2 g IV every 8 hours. This is not new. He is scheduled to receive intravenous cefepime through November 14 of next year (7) Type 2 diabetes mellitus: Plan: ADA diet. Sliding scale coverage. Plan Anticipate eventual return to [facility] History of Present Illness Chief Complaint: Confusion, weakness, low heart rate Primary Care Provider: Ana Lindo DO 85-year-old white male who was just discharged to [facility] on October 09 after being hospitalized from October 01 through October 09 due to lumbar wound dehiscence and MSSA bacteremia. He has been at [facility] with a lumbar wound VAC on intravenous cefepime but has become dehydrated now with acute on chronic kidney failure, hyperkalemia, slow heart rate, and confusion. He appears to have acute metabolic encephalopathy due to volume depletion and has acute on chronic kidney disease. He has developed hyperkalemia. He has what appears to be chronic atrial fibrillation with slow ventricular rate at this time. Wound VAC is in place. He has been receiving his cefepime 2 g IV 3 times a day. No apparent fever documented. He is admitted for further evaluation and treatment. Family is present and agrees to DNR status Allergies Allergy/AdvReac Type Severity Reaction Status Date / Time amoxicillin Allergy Intermediate lip Verified 10/03/25 09:20 swelling clavulanic acid Allergy Intermediate lip Verified 10/03/25 09:20 swelling Sulfa (Sulfonamide Allergy Intermediate lip Verified 10/03/25 09:20 Antibiotics) swelling VINCE Inhibitors Allergy Unknown unknown Verified 10/03/25 09:20 clarithromycin AdvReac Intermediate GI upset Verified 10/03/25 09:20 Home Medications Medication Instructions Recorded Confirmed Type aspirin 81 mg tablet,delayed 81 mg PO HS 06/29/18 10/14/25 History release (Adult Low Dose Aspirin) amlodipine 10 mg tablet 10 mg PO QAM 09/21/23 10/14/25 History folic acid 1 mg tablet 1 mg PO QAM 03/07/24 10/14/25 History magnesium oxide 400 mg (241.3 mg 400 mg PO QAM #30 tabs 04/29/25 10/14/25 Rx magnesium) tablet potassium chloride 20 mEq 20 meq PO QAM #90 tabs 07/03/25 10/14/25 Rx tablet,extended release metformin 1,000 mg tablet 1,000 mg PO BID #180 tabs 09/20/25 10/14/25 Rx amiodarone 200 mg tablet 200 mg PO QAM 10/01/25 10/14/25 History apixaban 5 mg tablet (Eliquis) 5 mg PO AMHS 10/01/25 10/14/25 History baclofen 10 mg tablet 10 mg PO AMHS 10/01/25 10/14/25 History finasteride 5 mg tablet 5 mg PO QAM 10/01/25 10/14/25 History furosemide 20 mg tablet (Lasix) 20 mg PO QAM 10/01/25 10/14/25 History hydrocodone 5 mg-acetaminophen 325 1 tab PO Q6H PRN pain 9-10 10/01/25 10/14/25 History mg tablet losartan 100 mg tablet 100 mg PO HS 10/01/25 10/14/25 History metoprolol succinate 25 mg 25 mg PO QAM 10/01/25 10/14/25 History tablet,extended release 24 hr multivitamin 1 tab PO HS 10/01/25 10/14/25 History pantoprazole 40 mg tablet,delayed 40 mg PO QAM 10/01/25 10/14/25 History release protein supplement 1 ea PO BID 10/01/25 10/14/25 History simvastatin 20 mg tablet 20 mg PO HS 10/01/25 10/14/25 History tamsulosin 0.4 mg capsule 0.4 mg PO QAM 10/01/25 10/14/25 History acetaminophen 500 mg tablet 1,000 mg (2 x 500 mg) PO Q8H PRN 10/09/25 10/14/25 Rx (Tylenol Extra Strength) pain 30 days #90 tabs bisacodyl 5 mg tablet,delayed 5 mg PO HS 30 days #30 tabs 10/09/25 10/14/25 Rx release (Gentle Laxative (bisacodyl)) duloxetine 30 mg capsule,delayed 30 mg PO DAILY 30 days #30 caps 10/09/25 10/14/25 Rx release duloxetine 60 mg capsule,delayed 60 mg PO DAILY 30 days #30 caps 10/09/25 10/14/25 Rx release ferrous sulfate 325 mg (65 mg 325 mg PO .MOWEFR #0 tabs 10/09/25 10/14/25 Rx iron) tablet naloxone 4 mg/actuation nasal spray 0.1 mg intranasal Q5M PRN opioid 10/09/25 10/14/25 Rx overdose 30 days #2 ea polyethylene glycol 3350 17 gram 17 g PO DAILY 30 days #30 ea 10/09/25 10/14/25 Rx oral powder packet (Miralax) Past Med/Surg History Problem List (Updated 10/14/25 @ 15:30 by Giacomo Park MD) Type 2 diabetes mellitus MSSA bacteremia Bradycardia Hyperkalemia Acute worsening of stage 3 chronic kidney disease Metabolic encephalopathy Volume depletion Urinary retention due to benign prostatic hyperplasia Venous stasis ulcers Paroxysmal atrial flutter Postoperative wound dehiscence (Acute) Deep postoperative wound infection (Acute) Ambulatory dysfunction (Chronic) Psoriatic arthritis (Chronic) Microscopic hematuria (Chronic) Diabetic ulcer of left foot (Chronic) Diabetic ulcer of right foot (Chronic) Hiatal hernia GERD (gastroesophageal reflux disease) Well controlled, stable Cervical facet joint syndrome Cervical dystonia Post-laminectomy syndrome Posterior cervical laminectomy and fusion C3-6 Thrombocytopenia TAYLOR (obstructive sleep apnea) Could not tolerate BIPAP Diabetic peripheral neuropathy associated with type 2 diabetes mellitus Osteoarthritis Diabetic nephropathy associated with type 2 diabetes mellitus Venous insufficiency (chronic) (peripheral) (Chronic) Depression (Chronic) Hypertension controlled, stable per pt Hyperlipidemia Chronic steroid use Psoriatic arthritis Hepatic steatosis 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 Chronic anemia Chronic/stable, PCP monitoring BPH with obstruction/lower urinary tract symptoms Medical History (Updated 10/14/25 @ 15:30 by Giacomo Park MD) Acute blood loss anemia Wound dehiscence, surgical Discitis of cervical region History of compression fracture of spine 2019, had cervical laminectomy 04/2020, no recent issues History of osteomyelitis cervical spine (2019) Dupuytren's contracture of left hand History of elevated prostate specific antigen (PSA) History of DVT (deep vein thrombosis) Traumatic open wound of right lower leg with delayed healing Lumbar discitis MSSA bacteremia Lumbar radiculopathy, acute 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 Loss of protective sensation of skin of deformed foot COVID-19 Hyperbilirubinemia Trigger finger of right hand 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 Scapular fracture Tendon rupture, Achilles Hx of diabetic foot ulcer resolved (2021) Surgical History (Updated 10/08/25 @ 00:07 by Background Daankit) History of reverse total replacement of right shoulder joint S/P lumbar laminectomy Status post reverse total replacement of right shoulder (~03/2023) S/P foot surgery, left (09/2023) excision w/ amputation of L 5th toe and partial amputation L 4th toe Hx of oral surgery dental implants History of colonoscopy Status post rotator cuff repair S/P arthroscopy of right shoulder 12/2021 S/P rotator cuff repair Left S/P laminectomy (04/25/20) Cervical 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 S/P arthroscopy of shoulder (01/2016) Left S/P left knee arthroscopy (10/2015) H/O elbow surgery R/L S/P hammer toe correction (11/2013) arthrodesis R toe Status post carpal tunnel release of both wrists H/O bilateral cataract extraction History of tonsillectomy S/P laparoscopic cholecystectomy (07/2018) Hx of difficult intubation - History of difficult intubation in 2007 at [facility]. Per record review they were unable to intubate on 3 attempts. Fast track LMA were unsuccessful. Were able to mask vent with 2 people. Intubated with nasal fiberoptic. - Anesthesia records from 2018 lap adelita showed Grade 1 view with Glidescope #4, smooth intubation - Right shoulder arthroscopy, RCR (12/11/21): LMA#5 placed without difficulty + PNB at [facility]. Family History Mother Cardiac disorder Myocardial infarction Aunt Family history of diabetes mellitus Uncle Family history of diabetes mellitus Other No family history of adverse response to anesthesia Denies family history of Ovarian cancer Prostate cancer Breast cancer Colorectal cancer Social History Smoking Status: Never smoker Tobacco Type: Cigarettes Age Started Using Tobacco: 14; Age Quit Using Tobacco: 44; packs per day: 2; Second Hand Exposure: No; Do You Dip or Chew Tobacco: No; Hx Alcohol Use: No Hx Substance Use: No Preferred Language: Romanian Communication Ability: Effective Visual Impairment: Limited Hearing Ability: Hard of Hearing Liturgical Music Director Required: No Beliefs That Will Affect Care: None marital status: Current Living Situation: Rehab Current Living Situation Comment: lives with current occupational status: retired How many Children do You have: 4 How many Children do You have Comment: one son are local and able to assist with care as needed. Other children live further away. Feels Safe at Home: Yes Diet: diabetic caffeine: Yes during the past year weight has: remained stable Dental Care, Regularly: Yes Physical Activity Frequency: Daily Physical Activity Frequency Comment: very active around house Seatbelt Use: always Sunscreen Use: Yes Assistive Devices: Cane and Walker Review of Systems 2 Review of Systems: The patient is disoriented and cannot reliably answer any questions regarding review of systems at this time Physical Exam 2 Physical Exam: General-eyes are open and the patient is responsive but he is somewhat lethargic. Confused. He is oriented to name only at this time. No documented fever on admission HEENThead atraumatic and normocephalic, pupils equal and reactive to light, extraocular muscles intact. Buccal membranes are dry Neck-no lymphadenopathy or thyromegaly, trachea midline Chest-clear to auscultation. No rales, wheezing or rhonchi Cardiac-regular rate and rhythm, normal S1 and S2 Abdomen-normal bowel sounds, no hepatosplenomegaly Extremities-no cyanosis, clubbing, or edema. Wound VAC is in place over the upper lumbar spine area Neuro-cranial nerves II through XII intact, motor and sensory function within normal limits, strength symmetrical with generalized weakness, no focal deficits Psych-cannot assess. The patient is confused with metabolic encephalopathy Results & Data Results & Data Vital Signs (Past 12 Hours) Vital Signs Temp Pulse Pulse Resp BP BP Pulse Ox 10/14/25 15:15 18 10/14/25 15:00 47 L 14 116/53 L 100 10/14/25 14:45 38 L 14 117/54 L 10/14/25 14:42 42 L 12 117/54 L 10/14/25 14:30 42 L 12 96 10/14/25 14:15 37 L 10 L 94 10/14/25 14:00 37 L 13 115/48 L 95 10/14/25 13:45 40 L 17 95 10/14/25 13:30 39 L 12 110/46 L 96 10/14/25 13:15 39 L 12 95 10/14/25 13:00 38 L 14 115/53 L 97 10/14/25 12:45 46 L 16 98 10/14/25 12:30 45 L 13 115/56 L 96 10/14/25 12:15 39 L 12 10/14/25 12:00 43 L 14 120/48 L 95 10/14/25 11:49 42 L 10/14/25 11:35 36.7 C 43 L 16 122/53 L 95 10/14/25 11:35 96 10/14/25 11:35 36.6 C 42 L 18 122/53 L 96 O2 Del Method 10/14/25 15:15 10/14/25 15:00 10/14/25 14:45 10/14/25 14:42 10/14/25 14:30 10/14/25 14:15 10/14/25 14:00 10/14/25 13:45 10/14/25 13:30 10/14/25 13:15 10/14/25 13:00 10/14/25 12:45 10/14/25 12:30 10/14/25 12:15 10/14/25 12:00 10/14/25 11:49 10/14/25 11:35 Room Air 10/14/25 11:35 Room Air 10/14/25 11:35 Room Air Laboratory Results 10/14/25 11:49 10/14/25 11:49 Code Status & VTE Plan Code Status DNR/DNI PG Care Time/CCT Total # of Minutes Spent Total Time Spent with Patient: Total time spent is greater than 50% in coordination of care (as documented) at patient's floor/unit and/or counseling patient: Coding Level of Care Code 77497 INT INP/OBS CARE 3/75MIN Diagnoses Volume depletion E86.9 Metabolic encephalopathy G93.41 Acute worsening of stage 3 chronic kidney disease N18.30 Hyperkalemia E87.5 Bradycardia R00.1 MSSA bacteremia R78.81; B95.61 Type 2 diabetes mellitus E11.9
[2025-10-14] MEDS ORDERED: GLUCAGON FOR INJ 1 MG VIAL SQ PRN (18:41)
[2025-10-14] MEDS ORDERED: GLUCOSE 40% GEL 15 GM TUBE PO PRN (18:41)
[2025-10-14] MEDS ORDERED: CARBOHYDRATES FOR HYPOGLYCEMIA PO PRN (18:41)
[2025-10-14] MEDS ORDERED: GLUCOSE 10 TAB/TUBE PO PRN (18:41)
[2025-10-14] MEDS ORDERED: DEXTROSE 50% 50 ML SYRINGE IV PRN (18:41)
[2025-10-14] MEDS: SODIUM CHLORIDE 0.9% 1,000 ML IV SCH (19:37)
[2025-10-14] MEDS: INSULIN ASPART PER UNIT CHARGE SC SCH (19:48)
[2025-10-14] MEDS: ACETAMINOPHEN 325 MG TAB PO PRN (20:22)
[2025-10-14] MEDS: CEFEPIME 2000MG 2,000 MG/20 ML SYR IV SCH (20:25)
[2025-10-14] MEDS: ASPIRIN 81 MG ECTAB PO SCH (20:25)
[2025-10-14] MEDS: APIXABAN 2.5 MG TAB PO SCH (20:25)
[2025-10-14] MEDS: MELATONIN 3 MG TAB PO PRN (21:52)
[2025-10-14] MEDS: CAPSAICIN CR 0.075% 60 GM TUBE EXT PRN (21:52)
[2025-10-14] MEDS: GABAPENTIN 100 MG CAP PO STA (22:30)
[2025-10-14] MEDS: LIDOCAINE 5% 1 PATCH TD STA (23:15)
[2025-10-15 07:10] LABS: Hematocrit (blood only) 22.7 % (42.0-52.0); Hemoglobin 7.3 g/dL (14.0-18.0); Immature Granulocytes # (auto) 0.06 K/uL (0.01-0.20); Immature Granulocytes % (auto) 0.9 %; Mean Corpuscular Hemoglobin 27.0 pg (25.0-34.0); Mean Corpuscular Volume 84.1 fL (80.0-100.0); Platelet Count 197 K/uL (130-400); RDW Standard Deviation 53.5 fL (36.4-46.3); Red Blood Count 2.70 M/uL (4.70-6.10); White Blood Count 6.36 K/ul (4.8-10.8)
[2025-10-15 07:35] LABS: Anion Gap 6.0 (3-11); Blood Urea Nitrogen 65.0 mg/dl (6-23); Calcium 8.6 mg/dl (8.6-10.3); Carbon Dioxide 25.0 mmol/L (21-32); Chloride 101.0 mmol/L (98-107); Creatinine Clr Calc Pharmacy 27.2 ml/min; Glucose 90.0 mg/dl (70-99(Fasting)); Potassium 4.9 mmol/L (3.5-5.1); Sodium 132.0 mmol/L (136-145)
[2025-10-15 07:36] LABS: Acanthocytes 1+; Ovalocytes 1+
[2025-10-15] MEDS: FINASTERIDE 5 MG TAB PO SCH (08:38)
[2025-10-15] MEDS: FERROUS SULFATE 325 MG TAB PO SCH (08:38)
[2025-10-15] MEDS: AMIODARONE 200 MG TAB PO SCH (08:38)
[2025-10-15] MEDS: FOLIC ACID 1 MG TAB PO SCH (08:38)
[2025-10-15] MEDS: MAGNESIUM OXIDE 400 MG TAB PO SCH (08:38)
[2025-10-15] MEDS: TAMSULOSIN HCL 0.4 MG CAP PO SCH (08:38)
[2025-10-15] MEDS: POLYETHYLENE (MIRALAX) 17 GM PACK PO SCH (09:30)
[2025-10-15] MEDS: REMOVE LIDODERM PATCH ONE (11:09)
[2025-10-15] MEDS: ONDANSETRON INJ 2 MG/ML 2 ML VIAL IV PRN (11:39)
--- NOTE | 2025-10-15 13:09 | Palliative Care Consultation ---
Date of Consultation October 15, 2025 Assessment & Plan (1) Back pain: (2) Counseling regarding goals of care: Met with pt at bedside, from 13:30 - 14:10. No visitors present. Patient able to verbalize that he has chronic back problems and is admitted 2/2 infection in his blood that probably started in his spine. 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 He is and has 2 sons and 2 daughters. His sons live locally and he has a daughter in [facility] and one in [place]. He shared that before his back injury he enjoyed hunting /fishing with his sons and being outdoors. He shared frustration with his limited mobility and hopes that in the future he can gain strength and functional independence. He admits that he realizes that he may not be able to cruz again, but is hopeful to return to fishing. He shared frustration with the level of difficulty he has doing much of anything with his hands due to weakness and swelling. He verbalized that he is hopeful that the infection can be cleared so that he can begin to get stronger. He reinforced desire for no resuscitation and that he would not find a life dependent on machines acceptable way to live, but admitted that he has not considered how he would feel if rehab went poorly and he did not improve from his current state of deconditioning. Discussion was halted when pt developed severe pain. I asisted BSRN in repositioning pt for comfort and made plan with pt to return at 10am when his will be present to continue ACP discussion. (3) Palliative care by specialist: Introduced Palliative Medicine and explained our role in advanced care planning, symptom management and navigation through the progression of life limiting disease. Patient and/or family were receptive to palliative services for goals of care discussions. Reviewed we are different from hospice, a home health nurse visiting service. History of Present Illness Reason for Consultation: goals of care Requesting Physician: Christiano Monzon Attending Physician: Christiano Monzon History of Present Illness 85-year-old white male who with history of HTN, HLD, Aflutter on Eliquis, psoriatic arthritis, history of postlaminectomy syndrome, history of cervical dystonia, history of C-spine epidural abscess in 2019 s/p C3-C6 fixation, history of R shoulder replacement, BPH, T2DM c/b prior diabetic foot wounds and nephropathy, recent admission 08/27-09/07 with MSSA bacteremia and L3-L4 discitis/osteomyelitis, L2-L3 prevertebral phlegmon/abscess, L3-L4 epidural phlegmon, s/p laminectomy L3-L5 on 08/31/25 (no hardware placed), who presents to ED with dehydration. He was [facility] after being hospitalized from October 01- for recurrent lumbar wound dehiscence and MSSA bacteremia. He has been at [facility] with a lumbar wound VAC on intravenous cefepime but has become dehydrated now with acute on chronic kidney failure, hyperkalemia, slow heart rate, and confusion. He appears to have acute metabolic encephalopathy due to volume depletion and has acute on chronic kidney disease. Wound VAC is in place. He has been receiving his cefepime 2 g IV 3 times a day. He is admitted for further evaluation and treatment. Allergies Allergy/AdvReac Type Severity Reaction Status Date / Time amoxicillin Allergy Intermediate lip Verified 10/03/25 09:20 swelling clavulanic acid Allergy Intermediate lip Verified 10/03/25 09:20 swelling Sulfa (Sulfonamide Allergy Intermediate lip Verified 10/03/25 09:20 Antibiotics) swelling VINCE Inhibitors Allergy Unknown unknown Verified 10/03/25 09:20 clarithromycin AdvReac Intermediate GI upset Verified 10/03/25 09:20 Home Medications Medication Instructions Recorded Confirmed Type aspirin 81 mg tablet,delayed 81 mg PO HS 06/29/18 10/14/25 History release (Adult Low Dose Aspirin) amlodipine 10 mg tablet 10 mg PO QAM 09/21/23 10/14/25 History folic acid 1 mg tablet 1 mg PO QAM 03/07/24 10/14/25 History magnesium oxide 400 mg (241.3 mg 400 mg PO QAM #30 tabs 04/29/25 10/14/25 Rx magnesium) tablet potassium chloride 20 mEq 20 meq PO QAM #90 tabs 07/03/25 10/14/25 Rx tablet,extended release metformin 1,000 mg tablet 1,000 mg PO BID #180 tabs 09/20/25 10/14/25 Rx amiodarone 200 mg tablet 200 mg PO QAM 10/01/25 10/14/25 History apixaban 5 mg tablet (Eliquis) 5 mg PO AMHS 10/01/25 10/14/25 History baclofen 10 mg tablet 10 mg PO AMHS 10/01/25 10/14/25 History finasteride 5 mg tablet 5 mg PO QAM 10/01/25 10/14/25 History furosemide 20 mg tablet (Lasix) 20 mg PO QAM 10/01/25 10/14/25 History hydrocodone 5 mg-acetaminophen 325 1 tab PO Q6H PRN pain 9-10 10/01/25 10/14/25 History mg tablet losartan 100 mg tablet 100 mg PO HS 10/01/25 10/14/25 History metoprolol succinate 25 mg 25 mg PO QAM 10/01/25 10/14/25 History tablet,extended release 24 hr multivitamin 1 tab PO HS 10/01/25 10/14/25 History pantoprazole 40 mg tablet,delayed 40 mg PO QAM 10/01/25 10/14/25 History release protein supplement 1 ea PO BID 10/01/25 10/14/25 History simvastatin 20 mg tablet 20 mg PO HS 10/01/25 10/14/25 History tamsulosin 0.4 mg capsule 0.4 mg PO QAM 10/01/25 10/14/25 History acetaminophen 500 mg tablet 1,000 mg (2 x 500 mg) PO Q8H PRN 10/09/25 10/14/25 Rx (Tylenol Extra Strength) pain 30 days #90 tabs bisacodyl 5 mg tablet,delayed 5 mg PO HS 30 days #30 tabs 10/09/25 10/14/25 Rx release (Gentle Laxative (bisacodyl)) duloxetine 30 mg capsule,delayed 30 mg PO DAILY 30 days #30 caps 10/09/25 10/14/25 Rx release duloxetine 60 mg capsule,delayed 60 mg PO DAILY 30 days #30 caps 10/09/25 10/14/25 Rx release ferrous sulfate 325 mg (65 mg 325 mg PO .MOWEFR #0 tabs 10/09/25 10/14/25 Rx iron) tablet naloxone 4 mg/actuation nasal spray 0.1 mg intranasal Q5M PRN opioid 10/09/25 10/14/25 Rx overdose 30 days #2 ea polyethylene glycol 3350 17 gram 17 g PO DAILY 30 days #30 ea 10/09/25 10/14/25 Rx oral powder packet (Miralax) Patient History Medical History (Updated 10/15/25 @ 13:08 by CRYSTAL Velasquez) Acute blood loss anemia Wound dehiscence, surgical Discitis of cervical region History of compression fracture of spine 2019, had cervical laminectomy 04/2020, no recent issues History of osteomyelitis cervical spine (2019) Dupuytren's contracture of left hand History of elevated prostate specific antigen (PSA) History of DVT (deep vein thrombosis) Traumatic open wound of right lower leg with delayed healing Lumbar discitis MSSA bacteremia Lumbar radiculopathy, acute 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 Loss of protective sensation of skin of deformed foot COVID-19 Hyperbilirubinemia Trigger finger of right hand 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 Scapular fracture Tendon rupture, Achilles Hx of diabetic foot ulcer resolved (2021) Surgical History (Updated 10/08/25 @ 00:07 by Tyree Molina) History of reverse total replacement of right shoulder joint S/P lumbar laminectomy Status post reverse total replacement of right shoulder (~03/2023) S/P foot surgery, left (09/2023) excision w/ amputation of L 5th toe and partial amputation L 4th toe Hx of oral surgery dental implants History of colonoscopy Status post rotator cuff repair S/P arthroscopy of right shoulder 12/2021 S/P rotator cuff repair Left S/P laminectomy (04/25/20) Cervical 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 S/P arthroscopy of shoulder (01/2016) Left S/P left knee arthroscopy (10/2015) H/O elbow surgery R/L S/P hammer toe correction (11/2013) arthrodesis R toe Status post carpal tunnel release of both wrists H/O bilateral cataract extraction History of tonsillectomy S/P laparoscopic cholecystectomy (07/2018) Hx of difficult intubation - History of difficult intubation in [address] [facility]. Per record review they were unable to intubate on 3 attempts. Fast track LMA were unsuccessful. Were able to mask vent with 2 people. Intubated with nasal fiberoptic. - Anesthesia records from 2018 lap adelita showed Grade 1 view with Glidescope #4, smooth intubation - Right shoulder arthroscopy, RCR (12/11/21): LMA#5 placed without difficulty + PNB at [facility]. Family History Mother Cardiac disorder Myocardial infarction Aunt Family history of diabetes mellitus Uncle Family history of diabetes mellitus Other No family history of adverse response to anesthesia Denies family history of Ovarian cancer Prostate cancer Breast cancer Colorectal cancer Social History Smoking Status: Former smoker Tobacco Type: Cigarettes Age Started Using Tobacco: 14; Age Quit Using Tobacco: 44; packs per day: 2; Second Hand Exposure: No; Do You Dip or Chew Tobacco: No; Hx Alcohol Use: No Hx Substance Use: No Preferred Language: Lao Communication Ability: Effective Visual Impairment: Limited Hearing Ability: Hard of Hearing Bioanalyst Required: No Beliefs That Will Affect Care: None marital status: Current Living Situation: Rehab Current Living Situation Comment: lives with current occupational status: retired How many Children do You have: 4 How many Children do You have Comment: one son are local and able to assist with care as needed. Other children live further away. Feels Safe at Home: Yes Diet: diabetic caffeine: Yes during the past year weight has: remained stable Dental Care, Regularly: Yes Physical Activity Frequency: Daily Physical Activity Frequency Comment: very active around house Seatbelt Use: always Sunscreen Use: Yes Assistive Devices: Cane and Walker Review of Systems Review of Systems: All systems reviewed & are unremarkable except as noted in HPI & below Physical Exam Constitutional: well developed, well nourished, + ill appearing and cooperative; + uncomfortable Eyes: PERRL, conjunctivae normal, anicteric sclerae Neck: trachea midline, no thyromegaly Respiratory: normal respiratory effort, lungs clear to auscultation Cardiovascular: RRR, no murmur, no edema Gastrointestinal (Abdomen): normal bowel sounds, soft, nontender, no hepatosplenomegaly Musculoskeletal: no cyanosis or clubbing, extremities motor strength 5/5 Skin: wound vac intact to lumbar spine Neurologic: PERRL, EOMI, accommodation nl, no face palsy, no dysarthria Psychiatric: A+Ox3, euthymic affect Results & Data Vital Signs (Past 12 Hours) Vital Signs Temp Pulse Pulse Pulse Resp BP BP 10/15/25 11:22 36.3 C L 58 L 16 114/59 L 12/15/25 08:36 54 L 101/53 L 10/15/25 08:09 36.4 C L 55 L 18 111/47 L 10/15/25 07:20 56 L 10/15/25 04:00 36.7 C 54 L 18 101/57 L Pulse Ox O2 Del Method 10/15/25 11:22 96 Room Air 10/15/25 08:36 10/15/25 08:09 94 Room Air 10/15/25 07:20 10/15/25 04:00 94 Room Air Laboratory Results Abnormal lab results 10/14/25 10/14/25 10/14/25 Range/Units 15:05 15:12 19:19 RBC (4.70-6.10) M/uL Hgb (14.0-18.0) g/dL Hct (42.0-52.0) % RDW Std Deviation (36.4-46.3) fL RDW Coeff of Caren (11.5-14.5) % Lymph # (Auto) (1.20-3.40) K/uL [place] # (Auto) (0.11-0.59) K/uL Sodium (136-145) mmol/L BUN (6-23) mg/dl Creatinine (0.6-1.4) mg/dl BUN/Creatinine Ratio (10-20) POC Glucose 233 H 152 H (70-99) mg/dl Urine Appearance Cloudy A (Clear) Urine Protein 1+ H (Negative) Urine Blood 2+ H (Negative) Urine RBC (Auto) 11-20 H (0-2) /hpf U Hyaline Cast (Auto) >20 H (0-2) /lpf 10/15/25 10/15/25 10/15/25 Range/Units 05:56 08:13 11:49 RBC 2.70 L (4.70-6.10) M/uL Hgb 7.3 L (14.0-18.0) g/dL Hct 22.7 L (42.0-52.0) % RDW Std Deviation 53.5 H (36.4-46.3) fL RDW Coeff of Caren 17.3 H (11.5-14.5) % Lymph # (Auto) 1.12 L (1.20-3.40) K/uL [place] # (Auto) 0.77 H (0.11-0.59) K/uL Sodium 132 L (136-145) mmol/L BUN 65 H (6-23) mg/dl Creatinine 1.80 H (0.6-1.4) mg/dl BUN/Creatinine Ratio 36.1 H (10-20) POC Glucose 114 H 109 H (70-99) mg/dl Urine Appearance (Clear) Urine Protein (Negative) Urine Blood (Negative) Urine RBC (Auto) (0-2) /hpf U Hyaline Cast (Auto) (0-2) /lpf Diagnostic Findings Chest X-Ray 10/14/25 11:48 Exam: AP Portable Chest Exam reason: Sepsis Comparison: 09/23/2025 Technique: A single AP portable view of the chest was obtained Findings: The lungs are well-expanded. There is subtle hazy gradual opacity noted inferiorly on the left. There is mild prominence of the right infrahilar vascular markings. There is redemonstration of a right sided PICC line. The cardiac and mediastinal silhouettes are within normal limits. There is no pneumothorax and no acute bony abnormalities are seen. Impression: 1. Questionable small left-sided pleural effusion. 2. Prominence of the vascular structures in the right infrahilar region is likely exaggerated by patient rotation. Electronically signed by Vern Ortiz 10-14-2025 12:29 PM Medications Administered Current Inpatient Medications Acetaminophen (Acetaminophen 325 Mg Tab) 650 mg PO Q6H PRN PRN Reason: Fever or headache Stop: 11/13/25 18:40 Last Admin: 10/15/25 09:30 Dose: 650 mg Amiodarone HCl (Amiodarone 200 Mg Tab) 200 mg PO QAM [facility] Stop: 11/14/25 08:59 Last Admin: 10/15/25 08:38 Dose: 200 mg Amlodipine Besylate (Amlodipine Besylate 5 Mg Tab) [facility]: 11/14/25 08:59 Last Admin: 10/15/25 08:37 Dose: 10 mg Apixaban (Apixaban 2.5 Mg Tab) 2.5 mg PO [facility] Stop: 11/13/25 20:59 Last Admin: 10/15/25 08:38 Dose: 2.5 mg Aspirin (Aspirin 81 Mg Ectab) 81 mg PO [facility] Stop: 11/13/25 20:59 Last Admin: 10/14/25 20:25 Dose: 81 mg Capsaicin (Capsaicin Cr 0.075% 60 Gm Tube) 1 appln EXT BID PRN PRN Reason: Neuropathic pain Stop: 11/13/25 21:28 Last Admin: 10/15/25 08:48 Dose: 1 appln Dextrose (Dextrose 50% 50 Ml Syringe) 25 - 50 ml IV UD PRN; Protocol PRN Reason: Hypoglycemia Protocol Stop: 11/13/25 18:40 Duloxetine HCl (Duloxetine Hcl 60 Mg Cap) 60 mg PO DAILY [facility] Stop: 11/14/25 08:59 Last Admin: 10/15/25 08:37 Dose: 60 mg Ferrous Sulfate (Ferrous Sulfate 325 Mg Tab) 325 mg PO MoWeFr@0900 [facility] Stop: 11/14/25 08:59 Last Admin: 10/15/25 08:38 Dose: 325 mg Finasteride (Finasteride 5 Mg Tab) 5 mg PO QAM [facility] Stop: 11/14/25 08:59 Last Admin: 10/15/25 08:38 Dose: 5 mg Folic Acid (Folic Acid 1 Mg Tab) 1 mg PO QAM [facility] Stop: 11/14/25 08:59 Last Admin: 10/15/25 08:38 Dose: 1 mg Glucagon (Glucagon For Inj 1 Mg Vial) 1 mg SQ UD PRN; Protocol PRN Reason: Hypoglycemia Protocol Stop: 11/13/25 18:40 Glucose (Glucose 40% Gel 15 Gm Tube) 15 - 30 gm PO UD PRN; Protocol PRN Reason: Hypoglycemia Protocol Stop: 11/13/25 18:40 Glucose (Glucose 10 Tab/Tube) 4 - 8 tab PO UD PRN; Protocol PRN Reason: Hypoglycemia Protocol Stop: 11/13/25 18:40 Heparin Sodium (Beef Lung) (Heparin 10 Unit/Ml 5 Ml Flush) 5 ml FLUSH PRN PRN PRN Reason: Flush Stop: 11/14/25 03:18 Sodium Chloride (Nss) 1,000 mls @ 80 mls/hr IV .[id number] [facility] Stop: 10/17/25 18:40 Last Admin: 10/15/25 08:30 Dose: 80 mls/hr Cefepime HCl (Maxipime 2000mg) 1,000 mg in 10 mls @ 5 mls/min IV Q12H [facility] Stop: 11/15/25 08:59 Insulin Aspart (Insulin Aspart Per Unit Charge) 0 units SC ACHS [facility] Stop: 11/13/25 18:40 Last Admin: 10/15/25 09:31 Dose: 4 units Magnesium Oxide (Magnesium Oxide 400 Mg Tab) 400 mg PO QAM [facility] Stop: 11/14/25 08:59 Last Admin: 10/15/25 08:38 Dose: 400 mg Melatonin (Melatonin 3 Mg Tab) 3 mg PO HS PRN PRN Reason: Sleep Stop: 11/13/25 21:28 Last Admin: 10/14/25 21:52 Dose: 3 mg Miscellaneous (Carbohydrates For Hypoglycemia ) 15 - 30 gm PO UD PRN PRN Reason: Hypoglycemia Protocol Stop: 11/13/25 18:40 Ondansetron HCl (Ondansetron Inj 2 Mg/Ml 2 Ml Vial) 4 mg IV Q6H PRN PRN Reason: Nausea And Vomiting Stop: 11/13/25 18:40 Last Admin: 10/15/25 11:39 Dose: 4 mg Pantoprazole Sodium (Pantoprazole 40 Mg Tab) 40 mg PO QAM [facility] Stop: 11/14/25 08:59 Last Admin: 10/15/25 08:38 Dose: 40 mg Polyethylene Glycol (Polyethylene (Miralax) 17 Gm Pack) 17 gm PO DAILY [facility] Stop: 11/14/25 08:59 Last Admin: 10/15/25 09:30 Dose: 17 gm Tamsulosin HCl (Tamsulosin Hcl 0.4 Mg Cap) 0.4 mg PO QAM [facility] Stop: 11/14/25 08:59 Last Admin: 10/15/25 08:38 Dose: 0.4 mg PG Care Time/CCT Total # of Minutes Spent Total Time Spent with Patient: Total time spent is greater than 50% in coordination of care (as documented) at patient's floor/unit and/or counseling patient: Advanced Care Planning 39595 Advanced Care Planning 30 [place] [address] IN/OBS CONSULT LVL 3,45M Patient Type New History Expanded Problem Focused Exam Expanded Problem Focused Medical Decision Making Moderate Complexity Diagnoses Back pain M54.9 Counseling regarding goals of care Z71.89 Palliative care by specialist Z51.5 Additional Codes Advanced Care Planning - 06850 Advanced Care Planning 30 Min: 58459 Advanced Care Planning 30 Min ([id number])
--- NOTE | 2025-10-15 14:27 | CT Scan Report ---
CT SCAN OF THE ABDOMEN AND PELVIS WITHOUT IV CONTRAST CLINICAL HISTORY: Decreasing hemoglobin. Hematoma. COMPARISON STUDY: Abdominal CT dated 08/27/2025. Lumbar spine MRI dated 09/18/2025. TECHNIQUE: CT scan of the abdomen and pelvis is performed from the lung bases to the proximal femora. Images are reviewed in the axial, sagittal, and coronal planes. IV contrast was not administered for this examination. A dose lowering technique was utilized adhering to the principles of ALARA. The ex amination is significantly suboptimal without oral or IV contrast. There is streak artifact from the arms which could not be elevated above the abdomen. The examination is also significantly degraded by suboptimal positioning within the CT gantry. CT DOSE: 1618.04 mGy.cm FINDINGS: Lung bases: The heart is mildly enlarged and without pericardial effusion. The coronary arteries are densely calcified. There is diminished attenuation of the cardiac blood pool last compared to the soila cardium suggesting anemia. There is a small left pleural effusion with dependent atelectasis. No airs pace consolidation is seen typical for pneumonia. Liver: The unenhanced liver is normal in size, contour, and attenuation. There is no intrahepatic shantal iary ductal dilatation. Gallbladder: Surgically absent noting clips in the gallbladder fossa. Spleen: Normal in size and attenuation. Pancreas: The unenhanced pancreas is atrophic and grossly unremarkable. Adrenal glands: Unremarkable. Kidneys: The unenhanced kidneys demonstrate mild cortical atrophy and are without hydronephrosis. The re is a punctate nonobstructing right renal calculus. There are at least 2 punctate nonobstructing le ft renal calculi. A 1.8 cm cyst is noted on the left. Abdominal vasculature: There is advanced atherosclerotic calcification of the abdominal aorta. A smal l infrarenal abdominal aortic aneurysm measures up to 3.4 cm in diameter. Bowel: There is moderate constipation. No bowel obstruction is seen. The appendix is well-visualized and normal. Peritoneum/retroperitoneum: There is no intraperitoneal free air or abdominal ascites. No retroperito abimael hematoma is identified. Lymphadenopathy: None. Pelvic viscera: The bladder is decompressed around a Forbes catheter and not well evaluated. Foci of i ntraluminal gas are likely related to instrumentation. The prostate gland is mildly enlarged and hete rogeneous. Skeletal structures: The skeletal structures are osteopenic. Degenerative and post laminectomy change s noted in the lumbar spine. Infiltration and incision site posterior to the laminectomy site are con sistent with recent surgery. There is likely a seroma in the operative bed. No lytic or blastic lesio ns are seen. IMPRESSION: 1. No acute infectious or inflammatory findings are identified in the abdomen or pelvis. 2. Cardiomegaly and trace left pleural effusion. 3. There is interval postlaminectomy change of the lumbar spine. Induration and an incision site over lying laminectomy likely represents postsurgical change. There is likely a seroma in the operative be d. 4. No hematoma is identified. 5. There are punctate bilateral nonobstructing renal calculi. 6. Moderate constipation. 7. Additional findings as above. ACT 112: Negative or not required by law. Electronically signed by: Vitaly Roman M.D. 10/15/2025 2:25 PM
--- NOTE | 2025-10-15 16:22 | Hospitalist Progress Note ---
"Date of Service October 15, 2025 Assessment & Plan (1) Acute worsening of stage 3 chronic kidney disease: (2) Hyperkalemia: (3) Metabolic encephalopathy: (4) Bradycardia: (5) MSSA bacteremia: (6) Type 2 diabetes mellitus: Plan 85 y/o male with recent h/o MSSA bacteremia and discitis, with recent admission 09/18-09/26 and 10/01 -10/09 who presents from [facility] for dehydration, slow heart rate and confusion. Admitted for IV fluids and potassium correction. #JOSH on CKD3 | Hyperkalemia - Cr 1.89 on admission, with baseline ~ 0.7. With casts on UA. K 6.0 on admission Received 1L IVF bolus, continue maintenance fluids Cefepime has been renally adjusted Potassium has corrected with IVFs hold lasix and losartan #Metabolic Encephalopathy - likely secondary to above This is improving, delirium prevent strategies #Bradycardia | pAF - with junction rhythm reported on tele. Pt asymptomatic from this, however bradycardia has not been this persistent in prior stays. Hold metoprolol, continue eliquis Check Lyme studies #Failure to thrive - with dehydration, 6kg weight loss since recent admission, decrease in functional status. Likely secondary to his multiple recent back surgeries, poor motivation and poor PO intake Did express to me that he would be interested in learning more about hospice, howver this is a big change in thinking compared to prior admissions - Palliative Care consulted PT/OT #Hx of MSSA bactermia | hx of deep wound infection Seen by ID last admission, Continue Cefepime through 11/14/25 - renally adjust wound vac in place q2 turns #H/O T2DM: Last A1c 5.1% No SSI indicated at this time, can continue BSG checks to ensure in range to help wound healing BSG acceptable #Chronic Anemia - recent iron studies consistent with iron deficiency anemia, B12 and folate within normal limits Hgb continued to drop today 7.3 - suspect component of hemodilution and with wound vac in place, checked CT A/P for completeness, no hematoma noted. venofer given 10/04 - will given additional dose today Dispo: continued inpatient stay, awaiting PT/OT, monitoring hgb, cr and GOC with palliative DVT proh: Mayra updated at bedside 10/15 case discussed with palliative care Admission and Anticipated Discharge Date Admission Date: October 14, 2025 Subjective Patient seen lying in bed, present at bedside. Patient reports that he is feeling lousy and has pain all over. We discussed the nature of healing. He states that he was not receiving protein supplements while he was [facility] unless he specifically asked for them, overall he did not eat much because he did not like the food there. States that for rehab he was able to get to a chair but no walking yet. currently his main concern is pain. We discussed with the wound VAC in place and multiple recent back surgeries it is very unlikely that we are going to get him to a pain level of 0 but we will try to make his pain level more tolerable so that he can participate in therapy and continue to improve. When discussing an option that would include total pain relief with briefly discussed the idea of hospice and how that would be not actively treating his disease. He states that that sounded like a reasonable option I told him that this is a very different line of thinking from what he has told me in past admissions. He was agreeable to talk to the palliative care provider. Review of Systems Review of Systems: All systems reviewed & are unremarkable except as noted in Subjective Physical Exam Physical Exam: General: NAD, VS as above, Lying in bed, chronically ill Resp: normal respiratory effort, lungs clear to auscultation CV: bradycardic, no murmur, Abd: normal bowel sounds, non tender, soft Bacl: wound vac in place : hopson in place, draining yellow urine Extremities: Moves all extremities, generalized edema to all 4 extremities Neuro: A&O x3, Skin: intact, no lesions noted Results & Data Results & Data Vital Signs (Past 12 Hours) Vital Signs Temp Pulse Pulse Pulse Resp BP BP 10/15/25 15:37 10/15/25 11:22 97.3 F L 58 L 16 114/59 L 10/15/25 08:36 54 L 101/53 L 10/15/25 08:09 97.5 F L 55 L 18 111/47 L 10/15/25 07:20 56 L Pulse Ox O2 Del Method 10/15/25 15:37 Room Air 10/15/25 11:22 96 Room Air 10/15/25 08:36 10/15/25 08:09 94 Room Air 10/15/25 07:20 Laboratory Results CBC and chemistry reviewed UA reviewed Diagnostic Findings CT abdomen and pelvis reviewed PG Care Time/CCT Total # of Minutes Spent Total Time Spent with Patient: Total time spent is greater than 50% in coordination of care (as documented) at patient's floor/unit and/or counseling patient: Coding Level of Care Code 57436 SUB INP/OBS CARE 3/50MIN Diagnoses Acute worsening of stage 3 chronic kidney disease N18.30 Hyperkalemia E87.5 Metabolic encephalopathy G93.41 Bradycardia R00.1 MSSA bacteremia R78.81; B95.61 Type 2 diabetes mellitus E11.9"
[2025-10-15] MEDS: HYDROCODONE/ACETAMOPHEN 5/325MG TAB PO PRN (17:27)
[2025-10-15] MEDS: IRON SUCROSE 300 MG in SODIUM CHLORIDE 0.9% 250 ML IV ONE (17:27)
[2025-10-15] MEDS: CEFEPIME 1000MG 1,000 MG/10 ML SYR IV SCH (20:17)
[2025-10-15] MEDS: GABAPENTIN 100 MG CAP PO STA (20:47)
[2025-10-16 08:05] LABS: Hematocrit (blood only) 22.7 % (42.0-52.0); Hemoglobin 7.3 g/dL (14.0-18.0); Immature Granulocytes # (auto) 0.07 K/uL (0.01-0.20); Immature Granulocytes % (auto) 1.2 %; Mean Corpuscular Hemoglobin 27.3 pg (25.0-34.0); Mean Corpuscular Volume 85.0 fL (80.0-100.0); Platelet Count 177 K/uL (130-400); RDW Standard Deviation 54.4 fL (36.4-46.3); Red Blood Count 2.67 M/uL (4.70-6.10); White Blood Count 5.65 K/ul (4.8-10.8)
[2025-10-16 08:28] LABS: Polychromasia 1+
[2025-10-16 08:29] LABS: Anion Gap 5.0 (3-11); Blood Urea Nitrogen 50.0 mg/dl (6-23); Calcium 8.4 mg/dl (8.6-10.3); Carbon Dioxide 25.0 mmol/L (21-32); Chloride 107.0 mmol/L (98-107); Creatinine Clr Calc Pharmacy 34.2 ml/min; Glucose 100.0 mg/dl (70-99(Fasting)); Potassium 4.0 mmol/L (3.5-5.1); Sodium 137.0 mmol/L (136-145)
--- NOTE | 2025-10-16 11:03 | Palliative Family Discussion ---
Date of Service October 16, 2025 Patient Directed Conference Time of Meetin:30 - 10:00 Participants: Erma Alarcon AGACNP Patient participation: yes Patient Support System: spouse Basia, daughter and LEDA at bedside Other Healthcare Provider Participation: None Meeting Location: bedside Advanced Directive available: no If yes, descriptors: The patient's surrogate medical decision maker participated: spouse Legally authorized health care proxy: Patient currently exhibits decisional capacity and does not require a proxy for medical decisions. Per PA [id number], in absence of written documentation of patient wishes, pt's proxy for medical decisions would be his Basia Woodson. A family meeting was held for ROGE WOODSON. This meeting was necessary for determining the appropriate course of treatment. Topics of Discussion Topics of Discussion: 1. HPI, comorbidities and expected trajectory of disease 2. Patient values/goals of care 3. Support was provided for informed, good-najma decisions. 4. Emotions expressed by family were acknowledged and addressed. 5. Follow-up Outpatient: n/a 6. Plan of Care: DNR/DNI We discussed at length the patient's acute and chronic medical conditions, general prognosis, treatment options, and goals of care. Adán's daughter questioned Adán's JOSH and possible need for HD. Discussed that his kidneys are slowly recovering. Although HD is not currently required, recovery from repeated insults to kidneys may become progressively more difficult and encouraged that he consider if HD is c/w what he would feel is appropriate quality of life. He shared frustration with his limited mobility and hopes that in the future he can gain strength and functional independence. Pt's LEDA and Basia verbalized concern that Adán has previously not improved with PT/OT because he has not cooperated with working with them and often cuts sessions short due to weakness/feeling tired. Adán again shared hope that he can return to doing some of the things he enjoys and shared frustration with the level of difficulty he has doing much of anything with his hands due to weakness and swelling. He verbalized that he is hopeful someday he will be able to fish from his boat again and reinforced desire to return to rehab to optimize his strength and functional independence. He verbalized desire to "do whatever it takes to get stronger". We discussed that this will be an uphill yoder and take a great deal of commitment and work from Adán. Discussed feasibility of attending rehab. Discussed that PT/OT will be available to him as long as he continue to work with them and continues to improve. At the point where he has optimized his strength and functional independence, his ability to return home will be readdressed. Discussed what goals/wishes would be if rehab goes poorly. . Basia expressed concern that she is unable to care for him at home in his current state. Adán is aware that if he does not improve, he may require terminal [facility] SNF placement Confirmed Adán does not want aggressive measures at this time for resuscitation, verified current DNR/DNI status is consistent with his GOC. Time Involved in Meeting: I spent 50 minutes overall addressing this case: 5 in medical data review/discussion with referring provider(s) and/or preparation for the visit 30 in direct interaction with the patient and family 30 Advance Care Planning/Goals of Care discussions as detailed above in note (must be >16min) 5 in subsequent review and synthesis of assessment and plan 10 in communicating with other providers regarding the patient's case: EFRAIN, primary team, BSRN
[2025-10-16] MEDS: MoRPHine SULFATE 2 MG/ML CARP IV PRN (15:43)
--- NOTE | 2025-10-16 17:05 | Hospitalist Progress Note ---
"Date of Service October 16, 2025 Assessment & Plan (1) Acute worsening of stage 3 chronic kidney disease: (2) Hyperkalemia: (3) Metabolic encephalopathy: (4) Bradycardia: (5) MSSA bacteremia: (6) Type 2 diabetes mellitus: Plan 85 y/o male with recent h/o MSSA bacteremia and discitis, with recent admission 09/18-09/26 and 10/01 -10/09 who presents from [facility] for dehydration, slow heart rate and confusion. Admitted for IV fluids and potassium correction. #JOSH on CKD3 | Hyperkalemia - Cr 1.89 on admission, with baseline ~ 0.7. With casts on UA. K 6.0 on admission Received 1L IVF bolus, continue maintenance fluids - Cr is improving, 1.43 today Cefepime has been renally adjusted Potassium has corrected with IVFs hold lasix and losartan #Metabolic Encephalopathy - likely secondary to above This is improving, delirium prevent strategies #Bradycardia | pAF - with junction rhythm reported on tele. Pt asymptomatic from this, however bradycardia has not been this persistent in prior stays. Lyme negative. Hold metoprolol, continue eliquis Discussed with cardiology - rec repeat EKG and can decrease amiodraone to 100mg, may need to be discontinued if symptomatic from bradycardia continue to monitor on tele #Failure to thrive - with dehydration, 6kg weight loss since recent admission, decrease in functional status. Likely secondary to his multiple recent back surgeries, poor motivation and poor PO intake Did express to me that he would be interested in learning more about hospice, howver this is a big change in thinking compared to prior admissions - Palliative Care consulted - still desires rehab PT/OT #Hx of MSSA bactermia | hx of deep wound infection Seen by ID last admission, Continue Cefepime through 11/14/25 - renally adjust wound vac in place q2 turns #H/O T2DM: Last A1c 5.1% No SSI indicated at this time, can continue BSG checks to ensure in range to help wound healing BSG acceptable #Chronic Anemia - recent iron studies consistent with iron deficiency anemia, B12 and folate within normal limits Hgb drop to 7.3 - suspect component of hemodilution and with wound vac in place, checked CT A/P for completeness, no hematoma noted. venofer given 10/04 - additional dose given 10/15 Hgb stable Dispo: continued inpatient stay, awaiting PT/OT, monitoring hgb, cr DVT proh: Mayra updated at bedside 10/15 & 10/16 case discussed with palliative care Admission and Anticipated Discharge Date Admission Date: October 14, 2025 Subjective patient seen sitting up in bed, family present at bedside. 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 - unclear why this seems to be flaring currently did have a bowel movement yesterady states he worked with therapy today and was unable to stand secondary to pain - patient has had issues with pain medication and AMS in the past Tele - junctional rhythm 50-60s Review of Systems Review of Systems: All systems reviewed & are unremarkable except as noted in Subjective Physical Exam Physical Exam: General: NAD, VS as above, Lying in bed, chronically ill Resp: normal respiratory effort, lungs clear to auscultation CV: bradycardic, no murmur, Abd: normal bowel sounds, non tender, soft Bacl: wound vac in place : hopson in place, draining yellow urine Extremities: Moves all extremities, generalized edema to all 4 extremities Neuro: A&O x3, Skin: intact, no lesions noted Results & Data Results & Data Vital Signs (Past 12 Hours) Vital Signs Temp Pulse Pulse Resp BP Pulse Ox O2 Del Method 10/16/25 15:29 97.3 F L 55 L 16 116/52 L 93 Room Air 10/16/25 13:01 57 L 10/16/25 08:30 Room Air 10/16/25 07:57 97.7 F 67 18 136/62 93 Room Air 10/16/25 06:00 62 Laboratory Results cbc and chemistry reviewed PG Care Time/CCT Total # of Minutes Spent Total Time Spent with Patient: Total time spent is greater than 50% in coordination of care (as documented) at patient's floor/unit and/or counseling patient: Coding Level of Care Code 61895 SUB INP/OBS CARE 3/50MIN Diagnoses Acute worsening of stage 3 chronic kidney disease N18.30 Hyperkalemia E87.5 Metabolic encephalopathy G93.41 Bradycardia R00.1 MSSA bacteremia R78.81; B95.61 Type 2 diabetes mellitus E11.9"
[2025-10-16] MEDS: BACLOFEN 10 MG TAB PO SCH (20:24)
[2025-10-16] MEDS: MICONAZOLE NITRATE POWDER 85 GM EXT SCH (20:25)
[2025-10-16] MEDS: diphenhydrAMINE 50 MG/ML VIAL IV STA (20:46)
[2025-10-16] MEDS: SIMVASTATIN 20 MG TAB PO SCH (21:41)
--- NOTE | 2025-10-16 22:14 | Electrocardiogram Report ---
Test Reason : Blood Pressure : */* mmHG Vent. Rate : 54 BPM Atrial Rate : * BPM P-R Int : * ms QRS Dur : 110 ms QT Int : 436 ms P-R-T Axes : * -41 54 degrees QTcB Int : 413 ms Sinus bradycardia Left axis deviation Cannot rule out Anterior infarct (cited on or before 03-Sep-2025) Abnormal ECG When compared with ECG of 14-Oct-2025 11:30, No significant change was found Confirmed by Vamshi Amado ([id number]) on 10/16/2025 10:13:51 PM Referred By: NO PCP Confirmed By: Vamshi Amado
--- NOTE | 2025-10-16 22:15 | Electrocardiogram Report ---
Test Reason : Blood Pressure : */* mmHG Vent. Rate : 44 BPM Atrial Rate : * BPM P-R Int : * ms QRS Dur : 102 ms QT Int : 474 ms P-R-T Axes : * -44 41 degrees QTcB Int : 405 ms Poor data quality, interpretation may be adversely affected Possible Junctional bradycardia (cannot rule out sinus bradycardia - prior ECG P waves small amplitud e and artifact is now present) Left axis deviation Possible Anterior infarct (cited on or before 03-Sep-2025) Abnormal ECG When compared with ECG of 18-Sep-2025 14:12, No significant change was found Confirmed by Vamshi Amado ([id number]) on 10/16/2025 10:15:11 PM Referred By: NO PCP Confirmed By: Vamshi Amado
[2025-10-17] MEDS: diphenhydrAMINE Capsule 25 MG CAP PO ONE (04:57)
[2025-10-17 07:38] LABS: Hematocrit (blood only) 22.7 % (42.0-52.0); Hemoglobin 7.1 g/dL (14.0-18.0); Immature Granulocytes # (auto) 0.06 K/uL (0.01-0.20); Immature Granulocytes % (auto) 1.0 %; Mean Corpuscular Hemoglobin 27.0 pg (25.0-34.0); Mean Corpuscular Volume 86.3 fL (80.0-100.0); Platelet Count 176 K/uL (130-400); RDW Standard Deviation 56.0 fL (36.4-46.3); Red Blood Count 2.63 M/uL (4.70-6.10); White Blood Count 6.00 K/ul (4.8-10.8)
[2025-10-17 07:55] LABS: Polychromasia 1+
[2025-10-17 08:03] LABS: Anion Gap 4.0 (3-11); Blood Urea Nitrogen 36.0 mg/dl (6-23); Calcium 8.0 mg/dl (8.6-10.3); Carbon Dioxide 25.0 mmol/L (21-32); Chloride 109.0 mmol/L (98-107); Creatinine Clr Calc Pharmacy 45.7 ml/min; Glucose 93.0 mg/dl (70-99(Fasting)); Potassium 3.8 mmol/L (3.5-5.1); Sodium 138.0 mmol/L (136-145)
[2025-10-17] MEDS: AMIODARONE 200 MG TAB PO SCH (09:07)
--- NOTE | 2025-10-17 16:11 | Hospitalist Progress Note ---
"Date of Service October 17, 2025 Assessment & Plan (1) Acute worsening of stage 3 chronic kidney disease: (2) Hyperkalemia: (3) Metabolic encephalopathy: (4) Bradycardia: (5) MSSA bacteremia: (6) Type 2 diabetes mellitus: Plan 85 y/o male with recent h/o MSSA bacteremia and discitis, with recent admission 09/18-09/26 and 10/01 -10/09 who presents from [facility] for dehydration, slow heart rate and confusion. Admitted for IV fluids and potassium correction. #JOSH on CKD3 | Hyperkalemia - Cr 1.89 on admission, with baseline ~ 0.7. With casts on UA. K 6.0 on admission IVFs discontinued as Cr has normalized. Potassium has corrected with IVFs continue to hold lasix and losartan #Metabolic Encephalopathy - likely secondary to above This is improving, delirium prevent strategies #Bradycardia | pAF - with junction rhythm reported on tele. Pt asymptomatic from this, however bradycardia has not been this persistent in prior stays. Lyme negative. Hold metoprolol, continue eliquis Discussed with cardiology - rec repeat EKG and can decrease amiodarone to 100mg, may need to be discontinued if symptomatic from bradycardia continue to monitor on tele - HR is increasing, flipping in out of junctional rhythms #Failure to thrive - with dehydration, 6kg weight loss since recent admission, decrease in functional status. Likely secondary to his multiple recent back surgeries, poor motivation and poor PO intake Did express to me that he would be interested in learning more about hospice, however this is a big change in thinking compared to prior admissions - Pal liative Care consulted - still desires rehab PT/OT #Hx of MSSA bactermia | hx of deep wound infection Seen by ID last admission, Continue Cefepime through 11/14/25 - renally adjust wound vac in place - discussed with child care cook, okay to try heat and or ice for pain q2 turns Struggling with pain control - baclofen readded, prn tylenol and norco. morphine for breakthrough and prePT #H/O T2DM: Last A1c 5.1% No SSI indicated at this time, can continue BSG checks to ensure in range to help wound healing BSG acceptable #Chronic Anemia - recent iron studies consistent with iron deficiency anemia, B12 and folate within normal limits Hgb drop to 7.3 - suspect component of hemodilution and with wound vac in place, checked CT A/P for completeness, no hematoma noted. venofer given 10/04 - additional dose given 10/15 Mayra was dose reduced for renal function - if hgb stable tomorrow can resume higher dose Dispo: continued inpatient stay, awaiting PT/OT, monitoring hgb DVT proh: Mayra updated at bedside 10/15 & 10/16 & 10/17 Admission and Anticipated Discharge Date Admission Date: October 14, 2025 Supervising Physician Co-Signing Physician Notes PA Supervision Note: I did not personally see or examine the patient today, but I verified all galindo points of MARY Stewart's assessment and plan with the following exceptions/a dditions: None Subjective Patient seen lying in bed, family present at bedside. He reports having pain Did report a small bowel movement yesterday. appetite flucuates - did like the protien jello itching overnight from back patient has not been able to stand today with therapy Tele - SR and junctional rhythm 70s Review of Systems Review of Systems: All systems reviewed & are unremarkable except as noted in Subjective Physical Exam Physical Exam: General: NAD, VS as above, Lying in bed, chronically ill Resp: normal respiratory effort, lungs clear to auscultation CV: bradycardic, no murmur, Abd: normal bowel sounds, non tender, soft Bacl: wound vac in place, no signs of rash or erythema to skin : hopson in place, draining yellow urine Extremities: Moves all extremities, generalized edema to all 4 extremities Neuro: A&O x3, Skin: intact, no lesions noted Results & Data Results & Data Vital Signs (Past 12 Hours) Vital Signs Temp Pulse Pulse Resp BP Pulse Ox O2 Del Method 10/17/25 13:30 62 10/17/25 11:11 98.1 F 76 18 133/63 95 Room Air 10/17/25 09:10 Room Air 10/17/25 07:31 98.1 F 74 18 114/56 L 92 Room Air 10/17/25 05:36 74 10/17/25 04:13 98.2 F 76 20 118/56 L 92 Room Air Laboratory Results cbc and chemistry reviewed PG Care Time/CCT Total # of Minutes Spent Total Time Spent with Patient: Total time spent is greater than 50% in coordination of care (as documented) at patient's floor/unit and/or counseling patient: Coding Level of Care Code 74424 SUB INP/OBS CARE 2MIN Diagnoses Acute worsening of stage 3 chronic kidney disease N18.30 Hyperkalemia E87.5 Metabolic encephalopathy G93.41 Bradycardia R00.1 MSSA bacteremia R78.81; B95.61 Type 2 diabetes mellitus E11.9"
[2025-10-17] MEDS: CEFEPIME 2000MG 2,000 MG/20 ML SYR IV SCH (18:30)
[2025-10-18] MEDS: GABAPENTIN 100 MG CAP PO STA (00:01)
[2025-10-18 06:29] LABS: Hematocrit (blood only) 25.9 % (42.0-52.0); Hemoglobin 8.0 g/dL (14.0-18.0); Mean Corpuscular Hemoglobin 26.8 pg (25.0-34.0); Mean Corpuscular Volume 86.9 fL (80.0-100.0); Platelet Count 190 K/uL (130-400); RDW Standard Deviation 57.3 fL (36.4-46.3); Red Blood Count 2.98 M/uL (4.70-6.10); White Blood Count 6.99 K/ul (4.8-10.8)
[2025-10-18 06:51] LABS: Anion Gap 5.0 (3-11); Blood Urea Nitrogen 32.0 mg/dl (6-23); Calcium 8.4 mg/dl (8.6-10.3); Carbon Dioxide 27.0 mmol/L (21-32); Chloride 109.0 mmol/L (98-107); Creatinine Clr Calc Pharmacy 50.5 ml/min; Glucose 105.0 mg/dl (70-99(Fasting)); Potassium 4.0 mmol/L (3.5-5.1); Sodium 141.0 mmol/L (136-145)
[2025-10-18] MEDS: APIXABAN 5 MG TABLET PO SCH (09:22)
[2025-10-18] MEDS: GABAPENTIN 100 MG CAP PO SCH (10:05)
[2025-10-18] MEDS ORDERED: SOD PHOSPHATE/SOD BIPHOSPHATE ENEMA 132 ML BTL PR PRN (13:52)
--- NOTE | 2025-10-18 16:48 | Hospitalist Progress Note ---
"Date of Service October 18, 2025 Assessment & Plan (1) Acute worsening of stage 3 chronic kidney disease: (2) Hyperkalemia: (3) Metabolic encephalopathy: (4) Bradycardia: (5) MSSA bacteremia: (6) Type 2 diabetes mellitus: Plan 85 y/o male with recent h/o MSSA bacteremia and discitis, with recent admission 09/18-09/26 and 10/01 -10/09 who presents from [facility] for dehydration, slow heart rate and confusion. Admitted for IV fluids and potassium correction. #JOSH on CKD3 | Hyperkalemia - Cr 1.89 on admission, with baseline ~ 0.7. With casts on UA. K 6.0 on admission IVFs discontinued as Cr has normalized. Potassium has corrected with IVFs continue to hold lasix and losartan as BP low/normal #Metabolic Encephalopathy - likely secondary to above This is improving, delirium prevent strategies #Bradycardia | pAF - with junction rhythm reported on tele. Pt asymptomatic from this, however bradycardia has not been this persistent in prior stays. Lyme negative. Hold metoprolol, continue eliquis Discussed with cardiology - rec repeat EKG and can decrease amiodarone to 100mg, may need to be discontinued if symptomatic from bradycardia tele - HR is increasing, flipping in out of junctional rhythms but more Sinus now #Failure to thrive - with dehydration, 6kg weight loss since recent admission, decrease in functional status. Likely secondary to his multiple recent back surgeries, poor motivation and poor PO intake Did express to me that he would be interested in learning more about hospice, however this is a big change in thinking compared to prior admissions - Palliative Care consulted - still desires rehab. 10/18 was notified by nursing that family wanted to talk to pallaitive, reconsulted. Per palliative care provider pt son had to force patient to do rehab today and still not progressing, family now leaning hospice. RD following - diet liberalized, rec [employer] consult for possible diet texture advancement PT/OT #Hx of MSSA bactermia | hx of deep wound infection Seen by ID last admission, Continue Cefepime through 11/14/25 - renally adjust wound vac in place - discussed with assistance coordinator, okay to try heat and or ice for pain - this seems to be helping q2 turns Struggling with pain control - baclofen added, prn tylenol and norco. morphine for breakthrough and prePT #H/O T2DM: Last A1c 5.1% No SSI indicated at this time, can continue BSG checks to ensure in range to help wound healing BSG acceptable also with neuropathy on cymbalta - worsening this admission but improved with 100mg gabapentin BID #Chronic Anemia - recent iron studies consistent with iron deficiency anemia, B12 and folate within normal limits Hgb drop to 7.3 - suspect component of hemodilution and with wound vac in place, checked CT A/P for completeness, no hematoma noted. venofer given 10/04 - additional dose given 10/15 #Constipation - no BM this admission on daily miralax. suppository given today prn enema ordered Dispo: continued inpatient stay, awaiting discharge plan - to confirm with family tomorrow plan is hospice? (does have auth for SNF pending), stable for downgrade to medical. DVT proph: Mayra updated at bedside 10/15 & 10/16 & 10/17 son updated at bedside 10/18 Admission and Anticipated Discharge Date Admission Date: October 14, 2025 Supervising Physician Co-Signing Physician Notes PA Supervision Note: I did not personally see or examine the patient today, but I verified all galindo points of MARY Stewart's assessment and plan with the following exceptions/additions: None Subjective Patient seen lying in bed, son present at bedside reports back pain is okay right now, KPAD in place main concern is the itching - on the right arm, just had cream placed no rash noted, thinks its been a few days since he has had a bowel movement Review of Systems Review of Systems: All systems reviewed & are unremarkable except as noted in Subjective Physical Exam Physical Exam: General: NAD, VS as above, Lying in bed, chronically ill Resp: normal respiratory effort, lungs clear to auscultation CV: bradycardic, no murmur, Abd: normal bowel sounds, non tender, soft : hopson in place, draining yellow urine Extremities: Moves all extremities, generalized edema to all 4 extremities Neuro: A&O x3, Skin: intact, no lesions noted - no erythema or raised areas where he is itching Results & Data Results & Data Vital Signs (Past 12 Hours) Vital Signs Temp Pulse Pulse Resp BP Pulse Ox O2 Del Method 10/18/25 16:19 97.7 F 63 16 127/50 L 95 Room Air 10/18/25 14:20 62 10/18/25 12:25 97.9 F 68 16 118/62 94 Room Air 10/18/25 11:19 Room Air 10/18/25 07:46 97.5 F L 72 18 137/63 94 Room Air 10/18/25 07:20 77 Laboratory Results cbc and chemistry reviewed PG Care Time/CCT Total # of Minutes Spent Total Time Spent with Patient: Total time spent is greater than 50% in coordination of care (as documented) at patient's floor/unit and/or counseling patient: Coding Level of Care Code 71527 SUB INP/OBS CARE 3/50MIN Diagnoses Acute worsening of stage 3 chronic kidney disease N18.30 Hyperkalemia E87.5 Metabolic encephalopathy G93.41 Bradycardia R00.1 MSSA bacteremia R78.81; B95.61 Type 2 diabetes mellitus E11.9"
[2025-10-18] MEDS: diphenhydrAMINE 2%/ZINC 0.1% CREAM 28.4GM TUBE EXT PRN (19:35)
[2025-10-18] MEDS: CETIRIZINE HCL 10 MG TABLET PO ONE (22:52)
[2025-10-18 23:49] VITALS: O2SAT 96
[2025-10-19 07:43] VITALS: RESP 18
--- NOTE | 2025-10-19 09:46 | Palliative Family Discussion ---
Date of Service October 18, 2025 Patient Directed Conference Time of Meetin:30 -16:00 Participants: ZuleikaLorraine Alarcon AGACNP Patient participation: yes Patient Support System: , son and daughter all present Other Healthcare Provider Participation: None Meeting Location: bedside Advanced Directive available: no If yes, descriptors: The patient's surrogate medical decision maker participated: spouse Legally authorized health care proxy: LNOK spouse Other surrogate: no A family meeting was held for ROGE WOODSON. This meeting was necessary for determining the appropriate course of treatment. Topics of Discussion Topics of Discussion: 1. Opportunity given for participants to speak and ask questions, reassurance provided. 2. Pt values and GOC 3. hospice care 4. Support was provided for informed, good-najma decisions. 5. Emotions expressed by family were acknowledged and addressed. 6. Follow-up Outpatient: n/a 7. Plan of Care: DNR/DNI, plan for discharge to rehab to optimize strength with hope of returning home We discussed at length the patient's acute and chronic medical conditions, general prognosis, treatment options, and goals of care. Discussed feasibility of attending rehab. Discussed what goals/wishes would be if rehab goes poorly. He shared frustration with his limited mobility and hopes that in the future he can gain strength and functional independence. Pt's son and Basia verbalized concern that Adán has previously not improved with PT/OT in rehab setting and he is resistant to PT interventions here at [facility]. Adán's son shared that he was present when PT worked with Adán today, and he had to really push him to not quit. He expressed concern that at rehab, Adán may not have motivation. Basia asked about getting Adán home rather than rehab and what resources hospice might be able to provide to make this possible. Discussed hospice benefit: an interdisciplinary program offered by nurses, nurses aides, social workers, chaplains and a medical apparatus model maker for patients with a terminal condition and a life expectancy of less than 6 months. This is covered by Medicare at 100%/no out of pocket expense to patient and all meds/supplies needed by patient for the reason they are on hospice are paid for/covered by hospice. The goal is assure quality of life of the patient in their home setting (home, alf, inpatient hospice setting) by providing symptoms management, psychosocial and spiritual support. However, they cannot offer 24 hours care and if the family is unable to provide that care, they will have to consider personal care with out of pocket cost vs. alf placement. We discussed the goals of hospice as a patient service and the goals of care; we discussed EOL trajectories and transitions alana the emotional impact of realizing mortality as a concrete reality from prior abstract considerations. They were reassured that no matter where they are along this trajectory, they are not alone - their medical team will remain by their side through their journey. Discussed the pros/cons of accepting help when especially weakened and distressed by pain-which would also help provide relief/decrease caregiver burden/strain. Hospice care focuses on quality of life when a cure is no longer possible, or the burdens of treatment outweigh the benefits. Discussed that they will not receive curative treatments, but will receive medicine that enhances quality of life, such as treatment for high blood pressure, rapid heart rate, or anxiety. Hospice care includes pain and symptom management, emotional support, medications and medical supplies, coaching for caregivers, grief support, and may include special services like speech and physical therapy when needed. Hospice also provides a 24/7 call service. Hospice care will also make short-term inpatient care available when pain or symptoms become too difficult to manage at home or when caregivers need respite time. Hospice care can be provided wherever the patient lives, includingpersonal care homes or nursing homes. Hospice care is provided by a team that focuses on the patients needs. The team usually includes clergy, home health aides, hospice physicians, nurses, social workers, trained volunteers, and other specialized therapists if needed. A patients personal physician may also be included. Family expressed concern with pt's history of sun-downing and concern that they currently can not provide the 24hr care that he would require at home.They were thankful for the information provided about hospice, but remain hopeful that he will gain strength and functional independence at rehab to allow him to return home safely. Both patient and family verbalize understanding that there is no guarantee that he will get strong enough to go home and improvement will be mostly dependent on Bill's cooperation and participation with PT/OT. Time Involved in Meeting: I spent 60 minutes overall addressing this case: 5 in medical data review/discussion with referring provider(s) and/or preparation for the visit 30 in direct interaction with the patient and family 30 Advance Care Planning/Goals of Care discussions as detailed above in note (must be >16min) 5 in subsequent review and synthesis of assessment and plan 10 in communicating with other providers regarding the patient's case: EFRAIN, primary team, BSRN
--- NOTE | 2025-10-19 10:54 | Discharge Summary ---
"Discharge Summary Date of Service October 19, 2025 Principal Dx & Hospital Course #1 = Principal Diagnosis (1) Acute worsening of stage 3 chronic kidney disease: (2) Hyperkalemia: (3) Metabolic encephalopathy: (4) Bradycardia: (5) MSSA bacteremia: (6) Type 2 diabetes mellitus: Plan 85 y/o male with recent h/o MSSA bacteremia and discitis, with recent admission 09/18-09/26 and 10/01 -10/09 who presents from [facility] for dehydration, slow heart rate and confusion. Admitted for IV fluids and potassium correction. #JOSH on CKD3 | Hyperkalemia - Cr 1.89 on admission, with baseline ~ 0.7. With casts on UA. K 6.0 on admission IVFs discontinued as Cr has normalized. Potassium has corrected with IVFs continue to hold lasix and losartan as BP low/normal #Metabolic Encephalopathy - likely secondary to above Improved, delirium prevent strategies #Bradycardia | pAF - with junction rhythm reported on tele. Pt asymptomatic from this, however bradycardia has not been this persistent in prior stays. Lyme negative. Hold metoprolol, continue eliquis Discussed with cardiology - rec repeat EKG and can decrease amiodarone to 100mg, may need to be discontinued if symptomatic from bradycardia tele - HR is increasing, flipping in out of junctional rhythms but more Sinus now #Failure to thrive - with dehydration, 6kg weight loss since recent admission, decrease in functional status. Likely secondary to his multiple recent back surgeries, poor motivation and poor PO intake Did express to me that he would be interested in learning more about hospice, however this is a big change in thinking compared to prior admissions - Palliative Care consulted - still desires rehab. 10/18 was notified by nursing that family wanted to talk to pallaitive, reconsulted. Per palliative care provider pt son had to force patient to do rehab today and still not progressing, family now leaning hospice. RD following - diet liberalized, rec BUTADIENE CONVERTER OPERATOR consult for possible diet texture advancement PT/OT #Hx of MSSA bactermia | hx of deep wound infection Seen by ID last admission, Continue Cefepime through 11/14/25 - renally adjust wound vac in place - discussed with meat selector, okay to try heat and or ice for pain - this seems to be helping q2 turns Struggling with pain control - baclofen added, prn tylenol and norco. morphine for breakthrough and prePT #H/O T2DM: Last A1c 5.1% No SSI indicated at this time, can continue BSG checks to ensure in range to help wound healing BSG acceptable also with neuropathy on cymbalta - worsening this admission but improved with 100mg gabapentin BID #Chronic Anemia - recent iron studies consistent with iron deficiency anemia, B12 and folate within normal limits Hgb drop to 7.3 - suspect component of hemodilution and with wound vac in place, checked CT A/P for completeness, no hematoma noted. venofer given 10/04 - additional dose given 10/15 #Constipation - no BM this admission on daily miralax. suppository given today prn enema ordered Patient is medically acceptable for discharge today. Plan is to attempt rehab but may consider transition to hospice depending on response and confirmation of VA benefits. F/u with house physician at [facility] within 24-48 hours. Plan of care has been d/w Dr. Wilkerson. Admission HPI Per Admitting Provider 85-year-old white male who was just discharged to [facility] on October 09 after being hospitalized from October 01 through October 09 due to lumbar wound dehiscence and MSSA bacteremia. He has been at [facility] with a lumbar wound VAC on intravenous cefepime but has become dehydrated now with acute on chronic kidney failure, hyperkalemia, slow heart rate, and confusion. He appears to have acute metabolic encephalopathy due to volume depletion and has acute on chronic kidney disease. He has developed hyperkalemia. He has what appears to be chronic atrial fibrillation with slow ventricular rate at this time. Wound VAC is in place. He has been receiving his cefepime 2 g IV 3 times a day. No apparent fever documented. He is admitted for further evaluation and treatment. Family is present and agrees to DNR status Discharge Exam GENERAL: 85 thin frail elderly WM. No distress. LUNGS: Clear to auscultation bilaterally. No W/R/R. CARDIOVASCULAR: S1 S2 reg ABDOMEN: Soft, non-tender and non-distended. BS normoactive x 4 quad. : Forbes in place, draining clear yellow EXTREMITIES: No edema. Non-tender. Peripheral pulses +2/4. NEUROLOGIC: No focal neurological deficits. CN II-XII grossly intact. PSYCHIATRIC: Cooperative. Appropriate mood and affect. SKIN: Warm, dry, intact. No rashes or lesions. Discharge Plan Discharge Items Patient Disposition: Transfer Detention Fac Reason For Visit: VOLUME DEPLETION, METABOLIC ENCEPHALOPATHY, A/CKD Discharge Diagnosis: dehydration, acute kidney injury, encephalopathy, failure to thrive Condition on Discharge: Fair Activity: Resume your previous activity Non-emergency contact: Primary Care Provider Call non-emergency contact if: you have any medication questions, your symptoms worsen and your pain is not controlled Follow-up/Referrals: Ana Lindo DO [Primary Care Provider] - Diet: Carb Consistent or DM2 Diet Texture: Mechanical soft (ground) Addtl Attending Provider Instructions: You were hospitalized due to acutely worsening kidney function and increased confusion likely due to the dehydration. Multiple medications were discontinued including your metformin, losartan, lasix and potassium supplementation. You were treated with IV fluids and your kidney function improved. You also had a low heart rate and your metoprolol was stopped and your amiodarone was reduced to 100mg daily. For neuropathy, your duloxetine was reduced to 60mg daily and you were started on Gabapentin 100mg twice a day which you are tolerating well. You were seen by palliative medicine team and had a discussion regarding hospice given failure to thrive and failing previous attempts at rehab. For now, plans are to proceed with rehabilitation at residential facility but may want to consider transitioning to hospice depending on clinical progress. Recommend follow up with house physician at residential facility within 24- 48 hours. Pending Studies at Discharge: No Stand-Alone Forms: [facility] Skilled Items Patient informed of condition?: Yes DNR: Yes Discharge Level of Care: Skilled Communicable Disease: No Discharge Prognosis: Stable Lines: None Urinary Catheter: Yes Medications and DC Order Prescriptions: New insulin aspart U-100 [Novolog U-100 Insulin aspart] 100 unit/mL Solution See Rx Instructions .ROUTE .COMPLEX Qty: 10 0RF Rx Instructions: Low dose sliding scale per facility protocol amiodarone 200 mg Tablet 100 mg PO QAM Qty: 30 0RF gabapentin 100 mg Capsule 100 mg PO BID Qty: 60 0RF Continued amlodipine 10 mg tablet 10 mg PO QAM aspirin [Adult Low Dose Aspirin] 81 mg tablet,delayed release (DR/EC) 81 mg PO HS folic acid 1 mg tablet 1 mg PO QAM baclofen 10 mg tablet 10 mg PO AMHS finasteride 5 mg tablet 5 mg PO QAM Eliquis 5 mg tablet 5 mg PO AMHS hydrocodone-acetaminophen 5-325 mg tablet 1 tab PO Q6H MDD APAP 3g PRN (Reason: pain 9-10) pantoprazole 40 mg tablet,delayed release (DR/EC) 40 mg PO QAM multivitamin Tablet 1 tab PO HS simvastatin 20 mg tablet 20 mg PO HS tamsulosin 0.4 mg Capsule 0.4 mg PO QAM protein supplement Liquid 1 ea PO BID Rx Instructions: 30 ml every day and evening shift acetaminophen [Tylenol Extra Strength] 500 mg Tablet 1,000 mg PO Q8H PRN (Reason: pain) 30 Days Qty: 90 0RF duloxetine 60 mg Capsule,Delayed Release(Dr/Ec) 60 mg PO DAILY 30 Days Qty: 30 0RF naloxone 4 mg/actuation spray,non-aerosol 0.1 mg intranasal Q5M PRN (Reason: opioid overdose) 30 Days Qty: 2 0RF bisacodyl [Gentle Laxative (bisacodyl)] 5 mg Tablet,Delayed Release (Dr/Ec) 5 mg PO HS 30 Days Qty: 30 0RF polyethylene glycol 3350 [Miralax] 17 gram Powder In Packet 17 g PO DAILY 30 Days Qty: 30 0RF ferrous sulfate 325 mg (65 mg iron) tablet 325 mg PO .MOWEFR Qty: 0 0RF magnesium oxide 400 mg (241.3 mg magnesium) Tablet 400 mg PO QAM Qty: 30 0RF Discontinued potassium chloride 20 mEq tablet extended release 20 meq PO QAM Qty: 90 1RF metformin 1,000 mg tablet 1,000 mg PO BID Qty: 180 1RF amiodarone 200 mg tablet 200 mg PO QAM furosemide [Lasix] 20 mg tablet 20 mg PO QAM metoprolol succinate 25 mg tablet extended release 24 hr 25 mg PO QAM losartan 100 mg tablet 100 mg PO HS duloxetine 30 mg Capsule,Delayed Release(Dr/Ec) 30 mg PO DAILY 30 Days Qty: 30 0RF Admission Data Admit Date/Time: 10/14/25 15:15 Attending Provider: Marni Wilkerson Admit Provider: Giacomo Park Primary Care Provider: Ana Lindo Other Providers: Giacomo Park; [facility]; [facility] Alar[facility] Hospital Stay Data Consultations 10/14/25 14:52 ED Decision to Admit Stat 10/15/25 12:58 Consult Palliative Care Routine Diagnostic Imagining Performed 10/15/25 11:01 CT Abd and Pelvis [CT abd pelvis wo con] Urgent Pending Results Patient Have Any Pending Studies at Discharge: No Discharge Instructions Given to Patient (Per Discharging Provider) You were hospitalized due to acutely worsening kidney function and increased confusion likely due to the dehydration. Multiple medications were discontinued including your metformin, losartan, lasix and potassium supplementation. You were treated with IV fluids and your kidney function improved. You also had a low heart rate and your metoprolol was stopped and your amiodarone was reduced to 100mg daily. For neuropathy, your duloxetine was reduced to 60mg daily and you were started on Gabapentin 100mg twice a day which you are tolerating well. You were seen by palliative medicine team and had a discussion regarding hospice given failure to thrive and failing previous attempts at rehab. For now, plans are to proceed with rehabilitation at residential facility but may want to consider transitioning to hospice depending on clinical progress. Recommend follow up with house physician at residential facility within 24- 48 hours. Total Time Total Time Spent Total Time Spent (In Minutes): 35 minutes Coding Level of Care Code 25577 INP/OBS DISCH >30 MIN Diagnoses Acute worsening of stage 3 chronic kidney disease N18.30 Hyperkalemia E87.5 Metabolic encephalopathy G93.41 Bradycardia R00.1 MSSA bacteremia R78.81; B95.61 Type 2 diabetes mellitus E11.9"
--- NOTE | 2025-10-19 11:20 | Hospitalist Progress Note ---
"Date of Service October 19, 2025 Assessment & Plan (1) Acute worsening of stage 3 chronic kidney disease: (2) Hyperkalemia: (3) Metabolic encephalopathy: (4) Bradycardia: (5) MSSA bacteremia: (6) Type 2 diabetes mellitus: Plan 85 y/o male with recent h/o MSSA bacteremia and discitis, with recent admission 09/18-09/26 and 10/01 -10/09 who presents from [facility] for dehydration, slow heart rate and confusion. Admitted for IV fluids and potassium correction. #JOSH on CKD3 | Hyperkalemia - Cr 1.89 on admission, with baseline ~ 0.7. With casts on UA. K 6.0 on admission IVFs discontinued as Cr has normalized. Potassium has corrected with IVFs continue to hold lasix and losartan as BP low/normal #Metabolic Encephalopathy - likely secondary to above Improved, delirium prevent strategies #Bradycardia | pAF - with junction rhythm reported on tele. Pt asymptomatic from this, however bradycardia has not been this persistent in prior stays. Lyme negative. Hold metoprolol, continue eliquis Discussed with cardiology - rec repeat EKG and can decrease amiodarone to 100mg, may need to be discontinued if symptomatic from bradycardia tele - HR is increasing, flipping in out of junctional rhythms but more Sinus now #Failure to thrive - with dehydration, 6kg weight loss since recent admission, decrease in functional status. Likely secondary to his multiple recent back surgeries, poor motivation and poor PO intake Did express to me that he would be interested in learning more about hospice, however this is a big change in thinking compared to prior admissions - Palliative Care consulted - still desires rehab. 10/18 was notified by nursing that family wanted to talk to pallaitive, reconsulted. Per palliative care provider pt son had to force patient to do r ehab today and still not progressing, family now leaning hospice. RD following - diet liberalized, rec LOAN FUNDER consult for possible diet texture advancement PT/OT #Hx of MSSA bactermia | hx of deep wound infection Seen by ID last admission, Continue Cefepime through 11/14/25 - renally adjust wound vac in place - discussed with mechanical striper, okay to try heat and or ice for pain - this seems to be helping q2 turns Struggling with pain control - baclofen added, prn tylenol and norco. morphine for breakthrough and prePT #H/O T2DM: Last A1c 5.1% No SSI indicated at this time, can continue BSG checks to ensure in range to help wound healing BSG acceptable also with neuropathy on cymbalta - worsening this admission but improved with 100mg gabapentin BID #Chronic Anemia - recent iron studies consistent with iron deficiency anemia, B12 and folate within normal limits Hgb drop to 7.3 - suspect component of hemodilution and with wound vac in place, checked CT A/P for completeness, no hematoma noted. venofer given 10/04 - additional dose given 10/15 #Constipation - no BM this admission on daily miralax. suppository given today prn enema ordered Patient is medically acceptable for discharge today and initially pt had been accepted at [facility] with SNF auth received by CM; however, facility cancelled discharged due to staffing and he is delayed until Wednesday. Continue inpt stay until Monday 10/22. Admission and Anticipated Discharge Date Admission Date: October 14, 2025 Subjective Bill was seen on morning rounds. He is surrounded by his and daughter. Verbalizes not well this morning but cannot specify why. Review of Systems Review of Systems: Denies chest pain or dyspnea. Limited ROS due to confusion. Physical Exam Physical Exam: GENERAL: 85 thin frail elderly WM. No distress. LUNGS: Clear to auscultation bilaterally. No W/R/R. CARDIOVASCULAR: S1 S2 reg ABDOMEN: Soft, non-tender and non-distended. BS normoactive x 4 quad. : Forbes in place, draining clear yellow EXTREMITIES: No edema. Non-tender. Peripheral pulses +2/4. Moves all extremities NEUROLOGIC: No focal neurological deficits. CN II-XII grossly intact. PSYCHIATRIC: Cooperative. Appropriate mood and affect. SKIN: Warm, dry, intact. No rashes or lesions. Results & Data Results & Data Vital Signs (Past 12 Hours) Vital Signs Temp Pulse Pulse Resp BP Pulse Ox O2 Del Method 10/19/25 07:42 36.7 C 61 18 128/69 96 Room Air 10/19/25 07:11 75 PG Care Time/CCT Total # of Minutes Spent Total Time Spent with Patient: Total time spent is greater than 50% in coordination of care (as documented) at patient's floor/unit and/or counseling patient: 26 minutes Coding Level of Care Code 12883 SUB INP/OBS CARE 1/25MIN Diagnoses Acute worsening of stage 3 chronic kidney disease N18.30 Hyperkalemia E87.5 Metabolic encephalopathy G93.41 Bradycardia R00.1 MSSA bacteremia R78.81; B95.61 Type 2 diabetes mellitus E11.9"
[2025-10-19 11:39] VITALS: BP 131/66; PULSE 66; TEMP 97.7
--- NOTE | 2025-10-19 14:17 | Discharge Summary ---
"Discharge Summary Date of Service October 19, 2025 Principal Dx & Hospital Course #1 = Principal Diagnosis (1) Acute worsening of stage 3 chronic kidney disease: (2) Hyperkalemia: (3) Metabolic encephalopathy: (4) Bradycardia: (5) MSSA bacteremia: (6) Type 2 diabetes mellitus: Plan 85 y/o male with recent h/o MSSA bacteremia and discitis, with recent admission 09/18-09/26 and 10/01 -10/09 who presents from [facility] for dehydration, slow heart rate and confusion. Admitted for IV fluids and potassium correction. #JOSH on CKD3 | Hyperkalemia - Cr 1.89 on admission, with baseline ~ 0.7. With casts on UA. K 6.0 on admission IVFs discontinued as Cr has normalized. Potassium has corrected with IVFs continue to hold lasix and losartan as BP low/normal #Metabolic Encephalopathy - likely secondary to above Improved, delirium prevent strategies #Bradycardia | pAF - with junction rhythm reported on tele. Pt asymptomatic from this, however bradycardia has not been this persistent in prior stays. Lyme negative. Hold metoprolol, continue eliquis Discussed with cardiology - rec repeat EKG and can decrease amiodarone to 100mg, may need to be discontinued if symptomatic from bradycardia tele - HR is increasing, flipping in out of junctional rhythms but more Sinus now #Failure to thrive - with dehydration, 6kg weight loss since recent admission, decrease in functional status. Likely secondary to his multiple recent back surgeries, poor motivation and poor PO intake Did express to me that he would be interested in learning more about hospice, however this is a big change in thinking compared to prior admissions - Palliative Care consulted - still desires rehab. 10/18 was notified by nursing that family wanted to talk to pallaitive, reconsulted. Per palliative care provider pt son had to force patient to do rehab today and still not progressing, family now leaning hospice. RD following - diet liberalized, rec FOREIGN LANGUAGE STENOGRAPHER consult for possible diet texture advancement PT/OT #Hx of MSSA bactermia | hx of deep wound infection Seen by ID last admission, Continue Cefepime through 11/14/25 - renally adjust wound vac in place - discussed with rug scratcher, okay to try heat and or ice for pain - this seems to be helping q2 turns Struggling with pain control - baclofen added, prn tylenol and norco. morphine for breakthrough and prePT #H/O T2DM: Last A1c 5.1% No SSI indicated at this time, can continue BSG checks to ensure in range to help wound healing BSG acceptable also with neuropathy on cymbalta - worsening this admission but improved with 100mg gabapentin BID #Chronic Anemia - recent iron studies consistent with iron deficiency anemia, B12 and folate within normal limits Hgb drop to 7.3 - suspect component of hemodilution and with wound vac in place, checked CT A/P for completeness, no hematoma noted. venofer given 10/04 - additional dose given 10/15 #Constipation - no BM this admission on daily miralax. suppository given today prn enema ordered Patient is medically acceptable for discharge today, f/u with house physician in 24-48 hrs. Admission HPI Per Admitting Provider 85-year-old white male who was just discharged to [facility] on October 09 after being hospitalized from October 01 through October 09 due to lumbar wound dehiscence and MSSA bacteremia. He has been at [facility] with a lumbar wound VAC on intravenous cefepime but has become dehydrated now with acute on chronic kidney failure, hyperkalemia, slow heart rate, and confusion. He appears to have acute metabolic encephalopathy due to volume depletion and has acute on chronic kidney disease. He has developed hyperkalemia. He has what appears to be chronic atrial fibrillation with slow ventricular rate at this time. Wound VAC is in place. He has been receiving his cefepime 2 g IV 3 times a day. No apparent fever documented. He is admitted for further evaluation and treatment. Family is present and agrees to DNR status. Discharge Exam GENERAL: 85 thin frail elderly WM. No distress. LUNGS: Clear to auscultation bilaterally. No W/R/R. CARDIOVASCULAR: S1 S2 reg ABDOMEN: Soft, non-tender and non-distended. BS normoactive x 4 quad. : Forbes in place, draining clear yellow EXTREMITIES: No edema. Non-tender. Peripheral pulses +2/4. Moves all extremities NEUROLOGIC: No focal neurological deficits. CN II-XII grossly intact. PSYCHIATRIC: Cooperative. Appropriate mood and affect. SKIN: Warm, dry, intact. No rashes or lesions. Discharge Plan Discharge Items Patient Disposition: Transfer [facility] Reason For Visit: VOLUME DEPLETION, METABOLIC ENCEPHALOPATHY, A/CKD Discharge Diagnosis: dehydration, acute kidney injury, encephalopathy, failure to thrive Condition on Discharge: Fair Activity: Resume your previous activity Non-emergency contact: Primary Care Provider Call non-emergency contact if: you have any medication questions, your symptoms worsen and your pain is not controlled Follow-up/Referrals: Ana Lindo DO [Primary Care Provider] - Diet: Carb Consistent or DM2 Diet Texture: Mechanical soft (ground) Addtl Attending Provider Instructions: You were hospitalized due to acutely worsening kidney function and increased confusion likely due to the dehydration. Multiple medications were discontinued including your metformin, losartan, lasix and potassium supplementation. You were treated with IV fluids and your kidney function improved. You also had a low heart rate and your metoprolol was stopped and your amiodarone was reduced to 100mg daily. For neuropathy, your duloxetine was reduced to 60mg daily and you were started on Gabapentin 100mg twice a day which you are tolerating well. You were seen by palliative medicine team and had a discussion regarding hospice given failure to thrive and failing previous attempts at rehab. For now, plans are to proceed with rehabilitation at long term facility but may want to consider transitioning to hospice depending on clinical progress. Recommend follow up with house physician at long term facility within 24- 48 hours. Pending Studies at Discharge: No Stand-Alone Forms: My [facility] Skilled Items Patient informed of condition?: Yes DNR: Yes Discharge Level of Care: Skilled Communicable Disease: No Discharge Prognosis: Stable Lines: None Urinary Catheter: Yes Medications and DC Order Prescriptions: New insulin aspart U-100 [Novolog U-100 Insulin aspart] 100 unit/mL Solution See Rx Instructions .ROUTE .COMPLEX Qty: 10 0RF Rx Instructions: Low dose sliding scale per facility protocol amiodarone 200 mg Tablet 100 mg PO QAM Qty: 30 0RF gabapentin 100 mg Capsule 100 mg PO BID Qty: 60 0RF Continued amlodipine 10 mg tablet 10 mg PO QAM aspirin [Adult Low Dose Aspirin] 81 mg tablet,delayed release (DR/EC) 81 mg PO HS folic acid 1 mg tablet 1 mg PO QAM baclofen 10 mg tablet 10 mg PO [facility] finasteride 5 mg tablet 5 mg PO QAM Eliquis 5 mg tablet 5 mg PO AMHS hydrocodone-acetaminophen 5-325 mg tablet 1 tab PO Q6H MDD APAP 3g PRN (Reason: pain 9-10) pantoprazole 40 mg tablet,delayed release (DR/EC) 40 mg PO QAM multivitamin Tablet 1 tab PO HS simvastatin 20 mg tablet 20 mg PO HS tamsulosin 0.4 mg Capsule 0.4 mg PO QAM protein supplement Liquid 1 ea PO BID Rx Instructions: 30 ml every day and evening shift acetaminophen [Tylenol Extra Strength] 500 mg Tablet 1,000 mg PO Q8H PRN (Reason: pain) 30 Days Qty: 90 0RF duloxetine 60 mg Capsule,Delayed Release(Dr/Ec) 60 mg PO DAILY 30 Days Qty: 30 0RF naloxone 4 mg/actuation spray,non-aerosol 0.1 mg intranasal Q5M PRN (Reason: opioid overdose) 30 Days Qty: 2 0RF bisacodyl [Gentle Laxative (bisacodyl)] 5 mg Tablet,Delayed Release (Dr/Ec) 5 mg PO HS 30 Days Qty: 30 0RF polyethylene glycol 3350 [Miralax] 17 gram Powder In Packet 17 g PO DAILY 30 Days Qty: 30 0RF ferrous sulfate 325 mg (65 mg iron) tablet 325 mg PO .MOWEFR Qty: 0 0RF magnesium oxide 400 mg (241.3 mg magnesium) Tablet 400 mg PO QAM Qty: 30 0RF Discontinued potassium chloride 20 mEq tablet extended release 20 meq PO QAM Qty: 90 1RF metformin 1,000 mg tablet 1,000 mg PO BID Qty: 180 1RF amiodarone 200 mg tablet 200 mg PO QAM furosemide [Lasix] 20 mg tablet 20 mg PO QAM metoprolol succinate 25 mg tablet extended release 24 hr 25 mg PO QAM losartan 100 mg tablet 100 mg PO HS duloxetine 30 mg Capsule,Delayed Release(Dr/Ec) 30 mg PO DAILY 30 Days Qty: 30 0RF Discharge Orders: Discharge Order (Routine); Ordered 10/19/25 Ordered By: Мария Amezquita Admission Data Admit Date/Time: 10/14/25 15:15 Attending Provider: Marni Wilkerson Admit Provider: Giacomo Park Primary Care Provider: Ana Lindo Other Providers: Giacomo Park; [place] [place]; Taylor Alarcon Other Interventions: Discharge Summary Assessment (RN) Last Done: 10/19/25 15:18 Hospital Stay Data Consultations 10/14/25 14:52 ED Decision to Admit Stat 10/15/25 12:58 Consult Palliative Care Routine Diagnostic Imagining Performed 10/15/25 11:01 CT Abd and Pelvis [CT abd pelvis wo con] Urgent Pending Results Patient Have Any Pending Studies at Discharge: No Discharge Instructions Given to Patient (Per Discharging Provider) You were hospitalized due to acutely worsening kidney function and increased confusion likely due to the dehydration. Multiple medications were discontinued including your metformin, losartan, lasix and potassium supplementation. You were treated with IV fluids and your kidney function improved. You also had a low heart rate and your metoprolol was stopped and your amiodarone was reduced to 100mg daily. For neuropathy, your duloxetine was reduced to 60mg daily and you were started on Gabapentin 100mg twice a day which you are tolerating well. You were seen by palliative medicine team and had a discussion regarding hospice given failure to thrive and failing previous attempts at rehab. For now, plans are to proceed with rehabilitation at long term facility but may want to consider transitioning to hospice depending on clinical progress. Recommend follow up with house physician at long term facility within 24- 48 hours. Supervising Physician Co-Signing Physician Notes PA Supervision Note: I did not personally see or examine the patient today, but I verified all galindo points of MARY Amezquita's assessment and plan with the following exceptions/additions: None Total Time Total Time Spent Total Time Spent (In Minutes): 36 minutes Coding Level of Care Code 79158 INP/OBS DISCH >30 MIN Diagnoses Acute worsening of stage 3 chronic kidney disease N18.30 Hyperkalemia E87.5 Metabolic encephalopathy G93.41 Bradycardia R00.1 MSSA bacteremia R78.81; B95.61 Type 2 diabetes mellitus E11.9"
== END 2025-10-19 15:20 | DRG 682 ==
LOC: SUATTDRO → ED 11:23 → 2N 15:15 → SUATTDRO 15:15 → 2N 17:58